=== PATIENT | male | born 1975 | race Caucasian/White ===

== ENCOUNTER → 2020-01-18 08:56 | Outpatient (BNVA) | payer MEDICAID, SELFPAY | PROVIDERS: PCP Internal Medicine; Referring Provider Internal Medicine; Visit Provider Nurse Practitioner Family | DX: Z76.89 Persons encountering health services in other specified circumstances (principal) ==

== ENCOUNTER → 2020-02-04 13:57 | Outpatient (BNVA) | payer MEDICAID, SELFPAY | PROVIDERS: PCP Internal Medicine; Visit Provider Physician Assistant | DX: Z01.818 Encounter for other preprocedural examination (principal); M17.11 Unilateral primary osteoarthritis, right knee; Z88.2 Allergy status to sulfonamides | CPT/HCPCS: 99212 ==

== ENCOUNTER 2020-02-04 14:26 | Outpatient (REF) | payer MEDICAID, SELFPAY ==
--- NOTE | 2020-02-04 14:38 | ECG_ITS ---
Test Reason : PRE CARDIO EXAM PRE Blood Pressure : / mmHG Vent. Rate : 105 BPM Atrial Rate : 105 BPM P-R Int : 150 ms QRS Dur : 088 ms QT Int : 334 ms P-R-T Axes : 043 025 021 degrees QTc Int : 441 ms Sinus tachycardia Otherwise normal ECG When compared with ECG of 02-SEP-2019 16:18, No significant change was found Referred By: Khushboo Hinkle Electronically Signed By:ROLAN GU MD
[2020-02-04 15:39] LABS: MANUAL DIFF FLAG NO
[2020-02-04 15:42] LABS: Basophils Percent Auto 0.6 % (0-2); Eosinophils Absolute Auto 0.4 X10*3/uL (0.0-0.4); Eosinophils Percent Auto 5.9 % (0-4); Hematocrit 41.4 % (42-52); Hemoglobin 14.3 g/dl (14.0-18.0); Imm Gran Abs Auto 0.02 X10*3/uL (0.00-0.03); Imm Gran Pct Auto 0.3 % (0.0-0.4); Lymphocytes Absolute Auto 1.3 X10*3/uL (1.2-4.9); Lymphocytes Percent Auto 20.4 % (20-40); Mean Corpuscular HGB Conc 34.5 g/dl (31.0-36.0); Mean Corpuscular Hemoglobin 32.6 pg (27.0-33.0); Mean Corpuscular Volume 94.3 fL (80-98); Mean Platelet Volume 10.5 fL (9.4-12.4); Monocytes Absolute Auto 0.6 X10*3/uL (0.1-1.2); Monocytes Percent Auto 9.9 % (2-11); Neutrophils Absolute Auto 4.1 X10*3/uL (2.0-8.3); Neutrophils Percent Auto 62.9 % (45-73); Platelet Count 196 X10*3/uL (160-400); Red Blood Count 4.39 X10*6/uL (4.60-5.80); Red Cell Distribution Width 12.6 % (11.0-16.0); White Blood Count 6.5 X10*3/uL (4.8-10.8)
[2020-02-04 15:50] LABS: Estimated Average Glucose 103 mg/dL; Hemoglobin A1c % 5.2 %
[2020-02-04 16:07] LABS: Anion Gap 14 (12-20); Blood Urea Nitrogen 18 mg/dL (9-16); Calcium 9.2 mg/dL (8.4-10.2); Carbon Dioxide 25 mmol/L (22-29); Chloride 104 mmol/L (96-108); Estimated Glomerular Filt Rate > 60; Glucose Random 96 mg/dL (60-115); Potassium 4.2 mmol/l (3.3-5.1); Sodium 139 mmol/L (135-145)
== END 2020-02-04 14:27 | disposition home or self-care (01) ==
LOC: HO.LAB 14:26
PROVIDERS: Visit Provider Physician Assistant
DX: Z01.812 Encounter for preprocedural laboratory examination (principal); Z01.810 Encounter for preprocedural cardiovascular examination
CPT/HCPCS: 36415; 80048; 83036; 85025; 86850; 93005

== ENCOUNTER 2020-02-14 08:24 | Outpatient (REF) | payer MEDICAID, SELFPAY ==
[2020-02-14 12:12] LABS: Phenytoin Dilantin 7.5 ug/mL (10.0-20.0)
== END 2020-02-14 08:25 | disposition home or self-care (01) ==
LOC: HO.LAB 08:24
PROVIDERS: PCP Internal Medicine; Visit Provider Physician Assistant
DX: Z01.818 Encounter for other preprocedural examination (principal)
CPT/HCPCS: 80185

== ENCOUNTER 2020-02-15 | Outpatient (REF) | payer MEDICAID, SELFPAY ==
[2020-02-07 12:19] VITALS: BP 136/84; PULSE 120; RESP 16; O2SAT 98; BMI 39.2
--- NOTE | 2020-02-07 12:39 | P.CONAN_ITS ---
HPI - Anesthesia Eval Consult details Narrative: 44yo M for R TKA Pending: PCP clearance anticonvulsant labs Pt no-showed for medical clearance appointment and dilantin level remains low. ? resched by ortho. [facility] Past Medical History Medical History (Updated 02/09/20 @ 10:15 by Khushboo Hinkle PA-C) History of epilepsy HTN (hypertension) Lumbar radiculopathy Rheumatoid arthritis Sleep apnea Tachycardia Family History Family history of problems with anesthesia: No Surgical History Surgical History (Updated 02/08/20 @ 08:57 by Avelina Enamorado) History of spinal surgery Hx of bariatric surgery Hx of exploratory laparotomy History of Problems with Anesthesia: No Social History Social History (Updated 02/07/20 @ 12:18 by Avelina Enamorado) Alcohol intake: never Smoking Status: Never smoker Current occupational status: disabled Narrative Narrative: No recent illness Chronic WOO, worsened with wearing mask. Some improvement with weight loss. No CP. >4 mets with eliptical, but recently limited to knee pain. Meds Allergies Allergy/AdvReac Type Severity Reaction Status Date / Time Sulfa (Sulfonamide Allergy Severe DIFFICULTY Verified 02/04/20 10:17 Antibiotics) BREATHING, [SULFA (SULFONAMIDE RASH, ANTIBIOTICS)] rash, hypertension Home Medications Medication Instructions Recorded Confirmed Type Humira(CF) Pen 40 mg SUBCUT Q2W 02/07/20 02/07/20 History cyclobenzaprine [Flexeril] 10 mg PO TID PRN 02/07/20 02/07/20 History naproxen 500 mg PO BID 02/07/20 02/07/20 History phenobarbital 194.4 mg PO BEDTIME 02/07/20 02/07/20 History phenytoin sodium extended 200 mg PO TID 02/07/20 02/07/20 History [Dilantin Extended] Exam Exam Date and Time: February 07, 2020 1239 Height,Weight and Vital Signs: Height 5 ft 10 in Weight 123.831 kg Last Vital Signs Pulse 120 H 02/07/20 12:19 Resp 16 02/07/20 12:19 BP 136/84 02/07/20 12:19 Pulse Ox 98 02/07/20 12:19 Pertinent Lab Results Pertinent Lab Results: Laboratory Tests 02/04/20 14:52 Blood Type B Positive Antibody Screen NEGATIVE Laboratory Tests 02/04/20 02/04/20 14:00 14:00 WBC 6.5 Hgb 14.3 Hct 41.4 L Plt Count 196 Sodium 139 Potassium 4.2 Chloride 104 Carbon Dioxide 25 BUN 18 H Creatinine 1.09 Narrative Narrative: EKG 01/17/20: ST @ 105 ECHO 2018: EF 55-60%, No RWMA, No Valve pathology Airway Mallampati Class: IV TM Dist: <=3cm (short neck) Neck ROM: Full Heart: RR-tachy Lungs: CTAB Assessment and Plan Assessment Anesthesia Assessment: Anesthesia Plan Discussed and PAT Visit
[2020-02-07 16:27] LABS: Phenytoin Dilantin 7.4 ug/mL (10.0-20.0)
[2020-02-09 14:55] LABS: MRSA Nasal PCR NEGATIVE (Negative); SA Nasal PCR POSITIVE (Negative)
== END 2020-02-15 00:01 ==
LOC: HO.LAB
PROVIDERS: Nurse Practitioner; Physician Assistant; PCP Internal Medicine; Visit Provider Orthopaedic Surgery
DX: Z01.818 Encounter for other preprocedural examination (principal); M17.11 Unilateral primary osteoarthritis, right knee
CPT/HCPCS: 80184; 80185; 86850; 86900; 86901; 87640; 87641

== ENCOUNTER 2020-06-05 07:29 | Outpatient (REF) | payer MEDICAID, SELFPAY ==
--- NOTE | ~2020-06-05 | XR_ITS ---
EXAMINATION: XR KNEES: STANDING BILATERAL XR KNEE, RIGHT: 2 VIEWS CLINICAL INFORMATION: Pain COMPARISON: 03/26/2019 TECHNIQUE: Weightbearing AP view of both knees and AP and lateral sunrise views of the right knee FINDINGS: No acute fracture or traumatic malalignment. There are tricompartment marginal osteophytes present bilaterally, bulky on the right and moderate on the left. There is significant loss of the lateral tibiofemoral compartment joint space bilaterally, also worse on the right. Moderate joint effusion. Soft tissues otherwise unremarkable. XR/XR knee standing BI IMPRESSION: Tricompartmental degenerative changes bilaterally, worse on the right, and in particular the lateral tibiofemoral compartment. No significant change from prior. Moderate joint effusion.
--- NOTE | ~2020-06-05 | XR_ITS ---
EXAMINATION: XR KNEES: STANDING BILATERAL XR KNEE, RIGHT: 2 VIEWS CLINICAL INFORMATION: Pain COMPARISON: 03/26/2019 TECHNIQUE: Weightbearing AP view of both knees and AP and lateral sunrise views of the right knee FINDINGS: No acute fracture or traumatic malalignment. There are tricompartment marginal osteophytes present bilaterally, bulky on the right and moderate on the left. There is significant loss of the lateral tibiofemoral compartment joint space bilaterally, also worse on the right. Moderate joint effusion. Soft tissues otherwise unremarkable. XR/XR knee RT 2V IMPRESSION: Tricompartmental degenerative changes bilaterally, worse on the right, and in particular the lateral tibiofemoral compartment. No significant change from prior. Moderate joint effusion.
== END 2020-06-05 07:30 | disposition home or self-care (01) ==
LOC: HO.HOSX 07:29
PROVIDERS: Visit Provider Orthopaedic Surgery
DX: M17.11 Unilateral primary osteoarthritis, right knee (principal); M06.9 Rheumatoid arthritis, unspecified
CPT/HCPCS: 73560; 73565; 99212

== ENCOUNTER 2020-06-22 10:06 | Outpatient (REF) | payer MEDICAID, SELFPAY ==
[2020-06-22 14:34] LABS: Estimated Average Glucose 97 mg/dL
== END 2020-06-22 10:07 | disposition home or self-care (01) ==
LOC: HO.10HDL 10:06
PROVIDERS: Visit Provider Orthopaedic Surgery
DX: Z01.812 Encounter for preprocedural laboratory examination (principal)
CPT/HCPCS: 36415; 83036

== ENCOUNTER 2020-07-20 11:54 | Outpatient (REF) | payer MEDICAID, SELFPAY ==
--- NOTE | 2020-07-20 12:32 | ECG_ITS ---
Test Reason : PREPROC EXAM Blood Pressure : / mmHG Vent. Rate : 115 BPM Atrial Rate : 115 BPM P-R Int : 148 ms QRS Dur : 086 ms QT Int : 318 ms P-R-T Axes : 042 024 032 degrees QTc Int : 439 ms Sinus tachycardia Otherwise normal ECG When compared with ECG of 04-FEB-2020 14:42, No significant change was found Referred By: Ruddy Castelan Electronically Signed By:LOLLY HARRIS
[2020-07-20 13:20] LABS: MANUAL DIFF FLAG NO
[2020-07-20 13:37] LABS: Basophils Percent Auto 0.4 % (0-2); Eosinophils Absolute Auto 0.2 X10*3/uL (0.0-0.4); Eosinophils Percent Auto 2.8 % (0-4); Hematocrit 42.9 % (42-52); Hemoglobin 14.6 g/dl (14.0-18.0); Imm Gran Abs Auto 0.02 X10*3/uL (0.00-0.03); Imm Gran Pct Auto 0.3 % (0.0-0.4); Lymphocytes Absolute Auto 1.6 X10*3/uL (1.2-4.9); Lymphocytes Percent Auto 20.2 % (20-40); Mean Corpuscular Hemoglobin 32.6 pg (27.0-33.0); Mean Corpuscular Volume 95.8 fL (80-98); Mean Platelet Volume 10.1 fL (9.4-12.4); Monocytes Absolute Auto 0.7 X10*3/uL (0.1-1.2); Monocytes Percent Auto 9.1 % (2-11); Neutrophils Absolute Auto 5.2 X10*3/uL (2.0-8.3); Neutrophils Percent Auto 67.2 % (45-73); Platelet Count 219 X10*3/uL (160-400); Red Blood Count 4.48 X10*6/uL (4.60-5.80); Red Cell Distribution Width 12.4 % (11.0-16.0); White Blood Count 7.7 X10*3/uL (4.8-10.8)
[2020-07-20 13:57] LABS: Anion Gap 14 (12-20); Blood Urea Nitrogen 17 mg/dL (9-16); Carbon Dioxide 26 mmol/L (22-29); Chloride 103 mmol/L (96-108); Estimated Glomerular Filt Rate > 60; Glucose Random 87 mg/dL (60-115); Potassium 3.9 mmol/L (3.3-5.1); Sodium 139 mmol/L (135-145)
== END 2020-07-20 11:55 | disposition home or self-care (01) ==
LOC: HO.LAB 11:54
PROVIDERS: PCP Internal Medicine; Visit Provider Orthopaedic Surgery
DX: Z01.818 Encounter for other preprocedural examination (principal); M17.11 Unilateral primary osteoarthritis, right knee
CPT/HCPCS: 36415; 80048; 85025; 93005

== ENCOUNTER 2020-07-26 19:58 | Emergency (ER) | payer MEDICAID, SELFPAY ==
--- NOTE | ~2020-07-26 | XR_ITS ---
EXAMINATION: XR CERVICAL SPINE CLINICAL INFORMATION: Status post fall COMPARISON: MR thoracic spine 12/20/2018 TECHNIQUE: 4 views of the cervical spine were obtained. FINDINGS: Marked degenerative changes are present from C4 through C6. C7 is not visualized. Large anterior osteophytes at C4-C5 and C5-C6 are present. No prevertebral soft tissue swelling, fractures or subluxations are seen. XR/XR cervical spine 3V IMPRESSION: Marked degenerative changes as described above. C7 not visualized.
[2020-07-26 20:13] VITALS: BP 138/82; BP 173/98; PULSE 110; PULSE 112; RESP 22; TEMP 36.6; O2SAT 95; O2SAT 96; BMI 37.3
[2020-07-26 21:34] VITALS: RESP 17
[2020-07-26] MEDS: dexAMETHasone 2 MG TABLET 10 MG PO (21:34)
[2020-07-26] MEDS: Morphine Sulfate 10 MG/ML CARTRIDGE 4 MG IM (21:34)
[2020-07-26 21:38] VITALS: BP 128/84; PULSE 110; RESP 18; O2SAT 95
[2020-07-26 21:57] LABS: Glucose Urine UA NEG (NEG); Leukocyte Esterase Urine NEG (NEG); Nitrite Urine NEG (NEG); Specific Gravity - Urine <= 1.005 (1.005-1.025); Urine Blood NEG (NEG); Urine Ketones NEG (NEG); Urine Protein NEG (NEG-TRACE)
[2020-07-26 21:59] LABS: Appearance Urine CLEAR; Color Urine STRAW
--- NOTE | 2020-07-26 22:51 | ED_ITS ---
HPI - Back Pain/Injury General Chief Complaint: Back Pain/Injury Stated Complaint: FALL,ETOH Time Seen by Provider: 07/26/20 21:23 Source: patient Mode of arrival: EMS Limitations: language barrier History of Present Illness HPI Narrative: Patient history of chronic back pain had few beers at home upset with his was going uphill fell on the R side complaining of increased pain in right lower back and shoulder and upper back. No paresthesia no motor weakness No urinary incontinence MD elicited complaint: back injury and fall Related Data Home Medications Medication Instructions Recorded Confirmed cyclobenzaprine [Flexeril] 10 mg PO TID PRN 02/07/20 07/20/20 phenobarbital 194.4 mg PO BEDTIME 02/07/20 07/20/20 phenytoin sodium extended 200 mg PO TID 02/07/20 07/20/20 [Dilantin Extended] Previous Rx's Medication Instructions Recorded naproxen 500 mg tablet 500 mg PO BID #60 tab 03/15/20 adalimumab 40 mg/0.4 mL 40 mg SUBCUT Q2W #2 cap 06/27/20 subcutaneous pen kit Allergies Allergy/AdvReac Type Severity Reaction Status Date / Time Sulfa (Sulfonamide Allergy Severe DIFFICULTY Verified 06/05/20 11:32 Antibiotics) BREATHING, [SULFA (SULFONAMIDE RASH, ANTIBIOTICS)] rash, hypertension Review of Systems Review of Systems: Constitutional : No Weight loss, No Fever, No Chills ENT/Mouth : No sore throat, No Rhinorrhea Eyes: No Eye Pain, No Swelling Cardiovascular : No Chest Pain, no palpitations Respiratory : No Cough, No Sputum, no shortness of breath Gastrointestinal : no Nausea, No Vomiting, No Diarrhea, No abdominal Pain, no black stools Genitourinary : No Dysuria, No Urinary Frequency Musculoskeletal : No joint pain, No Myalgias, No Joint Swelling Skin : No Skin Lesions, No rash Neuro : No Weakness, No Numbness, No Dizziness, No Headache Psych : No Anxiety/Panic, + Depression Heme/Lymph: No Bruising, No Lymphadenopathy Endocrine : No Polyuria, No Polydipsia All other systems reviewed and are negative [facility] Past Medical History Medical History History of epilepsy HTN (hypertension) Lumbar radiculopathy Rheumatoid arthritis Sleep apnea Tachycardia Surgical History History of spinal surgery Hx of bariatric surgery Hx of exploratory laparotomy Social History Social History Do you presently have visiting nurse or other home services: No Alcohol intake: never Smoking Status: Never smoker Advance Directives: No Advance Directives Information Provided: No Current occupational status: disabled Physical Exam Vital Signs: Vital Signs: Last Vital Signs Temp 97.8 F 07/26/20 20:13 Pulse 110 H 07/26/20 21:38 Resp 18 07/26/20 21:38 BP 128/84 07/26/20 21:38 Pulse Ox 95 07/26/20 21:38 Body Mass Index 37.3 Const: General: well developed and in distress moderate Orientation/consciousness: patient oriented x3 HENMT: Head: Yes normal to inspection, Yes normocephalic and Yes atraumatic Ears: hearing grossly normal bilaterally General nose exam: Normal external nose present Eyes: General: appearance normal, both eyes and all related structures Neck: Neck: Yes normal visual inspection, Yes full ROM and Yes tender (Right sternocleidomastoid no midline tenderness) Chest: Chest palpation & inspection: normal inspection of the chest and normal palpation of entire chest wall Resp: Effort & Inspection: normal respiratory effort Auscultation: clear to auscultation bilaterally Cardio: Palpation: normal PMI Rate: regular rate Rhythm: regular rhythm Heart sounds: S1 normal heart sound present and S2 normal heart sound present Peripheral pulses: Peripheral pulses 2+ throughout GI: Inspection: Yes normal to inspection Palpation (GI): Soft to palpation Auscultation: normal bowel sounds : General: Yes no CVA tenderness Back/Spine/Pelvis: Back: no CVA tenderness Thoracic/Lumbar Spine: straight leg raise negative bilaterally, thoraco-lumbar spasm, No thoracic spinal tenderness and No lumbar spinal tenderness Skin: General skin exam: no rashes or lesions noted Neuro: General: patient oriented x3 and no focal motor deficits Extrem: General: Yes normal to inspection and Yes full ROM Psych: Affect: Sad affect present Thought process: Normal thought process present Thought content: Normal thought content present MDM - Back Pain/Injury Lab Data Labs: Lab Results 07/26/20 Range/Units 21:51 Urine Color STRAW Urine Appearance CLEAR Urine pH 6.0 (5.0-8.0) Ur Specific [place] <= 1.005 (1.005-1.025) Urine Protein NEG (NEG-TRACE) MG/DL Urine Glucose (UA) NEG (NEG) MG/DL Urine Ketones NEG (NEG) MG/DL Urine Blood NEG (NEG) Urine Nitrite NEG (NEG) Ur Leukocyte Esterase NEG (NEG) Discharge Plan Discharge Prescriptions: No Action naproxen 500 mg tablet 500 mg PO BID Qty: 60 RF: 2 adalimumab [Humira(CF) Pen] 40 mg/0.4 mL pen injector kit 40 mg subcut Q2W Qty: 2 RF: 5 phenobarbital 97.2 mg Tablet 194.4 mg PO BEDTIME RF: 0 phenytoin sodium extended [Dilantin Extended] 100 mg Capsule 200 mg PO TID RF: 0 cyclobenzaprine [Flexeril] 10 mg Tablet 10 mg PO TID PRN (Reason: Pain) RF: 0
[2020-07-26] MEDS: oxyCODONE HCl Immed Release 5 MG TABLET 10 MG PO (23:01)
[2020-07-26] MEDS: Cyclobenzaprine HCl 10 MG TABLET PO (23:01)
[2020-07-26] MEDS: Ketorolac Tromethamine 60 MG/2 ML VIAL IM (23:01)
== END 2020-07-27 00:03 | disposition home or self-care (01) ==
PROVIDERS: Emergency Provider Internal Medicine
DX: M62.830 Muscle spasm of back (principal); I10 Essential (primary) hypertension
CPT/HCPCS: 72040; 81003; 96372; 99284; J1885; J2270; J8540

== ENCOUNTER → 2020-09-19 15:11 | Outpatient (BNVA) | payer MEDICAID, SELFPAY | PROVIDERS: Visit Provider Student in an Organized Health Care Education/Training Program | DX: M05.9 Rheumatoid arthritis with rheumatoid factor, unspecified (principal) | CPT/HCPCS: 99212 ==

== ENCOUNTER 2020-09-23 12:18 | Emergency (ER) | payer MEDICAID, SELFPAY ==
--- NOTE | ~2020-09-23 | XR_ITS ---
EXAMINATION: XR CHEST CLINICAL INFORMATION: Chest tightness. Pain. COMPARISON: 09/02/2019 TECHNIQUE: Frontal view of the chest was obtained. FINDINGS: Lungs are adequately expanded and clear. No pulmonary edema, consolidation or pleural effusion. No pneumothorax. Cardiac silhouette is normal in size. Trachea is midline in position. Multilevel osteophyte formation of the degenerated spine. XR/XR chest 1V IMPRESSION: No acute pulmonary disease.
[2020-09-23 12:19] VITALS: BP 120/96; PULSE 118; RESP 16; TEMP 36.6; O2SAT 99; BMI 38.9
--- NOTE | 2020-09-23 13:24 | ECG_ITS ---
Test Reason : CP Blood Pressure : / mmHG Vent. Rate : 098 BPM Atrial Rate : 098 BPM P-R Int : 156 ms QRS Dur : 090 ms QT Int : 348 ms P-R-T Axes : 026 026 037 degrees QTc Int : 444 ms Sinus rhythm with occasional Premature ventricular complexes Abnormal ECG When compared with ECG of 20-JUL-2020 12:39, Premature ventricular complexes are now Present Referred By: Yessica Lawrence Electronically Signed By:LOLLY HARRIS
--- NOTE | 2020-09-23 13:25 | ED.ARRPALP ---
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 Mode of arrival: ambulatory Limitations: no limitations History of Present Illness HPI narrative: chest pain and dyspnea started on prednisone taper for RA this week MD complaint: rapid heart beat, heart racing and palpitations Severity: moderate Context: occurred during rest and occurred during exertion Associated symptoms: chest pain, shortness of breath and anxiety Related Data Home Medications Medication Instructions Recorded Confirmed cyclobenzaprine [Flexeril] 10 mg PO TID PRN 02/07/20 07/20/20 phenobarbital 194.4 mg PO BEDTIME 02/07/20 07/20/20 phenytoin sodium extended 200 mg PO TID 02/07/20 07/20/20 [Dilantin Extended] Previous Rx's Medication Instructions Recorded naproxen 500 mg tablet 500 mg PO BID #60 tab 03/15/20 adalimumab 40 mg/0.4 mL 40 mg SUBCUT Q2W #2 cap 06/27/20 subcutaneous pen kit cyclobenzaprine 10 mg PO Q8H #20 tab 07/26/20 oxycodone 5 mg PO Q6H PRN #20 tab 07/26/20 gabapentin 100 mg capsule 200 mg PO BID #120 cap 09/15/20 prednisone 5 mg tablet See Rx Instructions PO DAILY #12 09/19/20 tab hydrocodone-acetaminophen 1 tab PO Q6H PRN #8 tab 09/23/20 Allergies Allergy/AdvReac Type Severity Reaction Status Date / Time Sulfa (Sulfonamide Allergy Severe DIFFICULTY Verified 09/19/20 15:24 Antibiotics) BREATHING, [SULFA (SULFONAMIDE RASH, ANTIBIOTICS)] rash, hypertension Review of Systems Review of Systems: Constitutional : No Weight loss, No Fever, No Chills ENT/Mouth : No sore throat, No Rhinorrhea Eyes: No Eye Pain, No Swelling Cardiovascular : pos Chest Pain, pos SOB, no Dyspnea on Exertion, No Orthopnea, No Edema, pos Palpitations Respiratory : No Cough, No Sputum Gastrointestinal : pos Nausea, No Vomiting, No Diarrhea, No abdominal Pain, No Hematochezia, No Melena Genitourinary : No Dysuria, No Urinary Frequency Musculoskeletal : No joint pain, No Myalgias, No Joint Swelling Skin : No Skin Lesions, No rash Neuro : No Weakness, No Numbness, No Dizziness, No Headache Psych : No Anxiety/Panic, No Depression Heme/Lymph: No Bruising, No Lymphadenopathy Endocrine : No Polyuria, No Polydipsia All other systems reviewed and are negative [facility] Past Medical History Attestation statement: The following information was validated with the patient. Medical History History of epilepsy HTN (hypertension) Lumbar radiculopathy Rheumatoid arthritis Rheumatoid arthritis Sleep apnea Tachycardia Surgical History History of spinal surgery Hx of bariatric surgery Hx of exploratory laparotomy Social History Social History Are you a primary healthcare interpreter to a significant other at home: Yes ( disabled) Do you presently have visiting nurse or other home services: No Alcohol intake: never Patient Tobacco Use Status: Never used Tobacco e-Cigarette/Vaping Use: Never Used Advance Directives: No Advance Directives Information Provided: No Current occupational status: disabled Physical Exam Vital Signs: Vital Signs: Last Vital Signs Temp 98.5 F 09/23/20 14:45 Pulse 98 09/23/20 14:45 Resp 18 09/23/20 14:45 BP 131/94 H 09/23/20 14:45 Pulse Ox 98 09/23/20 14:45 Body Mass Index 38.9 Appearance: Alert. Oriented X3. No acute distress. Anxious Eyes: Pupils equal, round and reactive to light. ENT: Pharynx normal. Neck: Normal inspection. Neck supple. CVS: Normal heart rate and rhythm 99 on the monitor. Pulses normal. Respiratory: No respiratory distress. Breath sounds normal. Abdomen: Soft and non-tender. Skin: Skin warm and dry. Normal skin color. Normal skin turgor. Extremities: No lower extremity edema. No calf ttp Neuro: Oriented X 3. No motor deficit. No sensory deficit. 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 only two narcotic Rx in last 6 months MDM - Arrhythmia/Palpitations MDM Narrative Medical decision making narrative: 44 yo male with arthritis, RA on prednisone just started taper this week comes in with palpitations/dyspnea/pleuritic chest pain since yesterday at this time appears very anxious will obtain labs, troponin x 1 as pain constant, has had workup for CP with cardiology that was negative in the past, IV ativan for anxiety, ddimer for PE dispo per results and improvement Lab Data Result diagrams: 09/23/20 13:45 09/23/20 13:45 Labs: Lab Results 09/23/20 09/23/20 09/23/20 Range/Units 13:45 13:45 13:45 WBC 4.8 (4.8-10.8) X10*3/uL RBC 4.36 L (4.60-5.80) X10*6/uL Hgb 14.4 (14.0-18.0) g/dl Hct 40.9 L (42-52) % MCV 93.8 (80-98) fL MCH 33.0 (27.0-33.0) pg MCHC 35.2 (31.0-36.0) g/dl RDW 12.4 (11.0-16.0) % Plt Count 161 D (160-400) X10*3/uL MPV 9.9 (9.4-12.4) fL Immature Gran % (Auto) 0.2 (0.0-0.4) % Neut % (Auto) 63.6 (45-73) % Lymph % (Auto) 22.8 (20-40) % [place] % (Auto) 8.8 (2-11) % Eos % (Auto) 4.4 H (0-4) % Baso % (Auto) 0.2 (0-2) % Lymph # (Auto) 1.1 L (1.2-4.9) X10*3/uL [place] # (Auto) 0.4 (0.1-1.2) X10*3/uL Eos # (Auto) 0.2 (0.0-0.4) X10*3/uL Baso # (Auto) 0.0 (0.0-0.2) X10*3/uL Abs Immat Gran (auto) 0.01 (0.00-0.03) X10*3/uL Absolute Neuts (auto) 3.1 (2.0-8.3) X10*3/uL Absolute Nucleated RBC 0.000 (0.0-0.012) X10*3/uL Nucleated RBC % (auto) 0.0 (0.0-0.2) /100WBC D-Dimer NG/ML Sodium 139 (135-145) mmol/L Potassium 4.4 (3.3-5.1) mmol/L Chloride 103 (96-108) mmol/L Carbon Dioxide 26 (22-29) mmol/L Anion Gap 14 (12-20) BUN 13 (9-16) mg/dL Creatinine 1.06 (0.5-1.4) mg/dL Estim Creat Clear Calc 116.9 Estimated GFR > 60 Random Glucose 105 (60-115) mg/dL Calcium 9.8 (8.4-10.2) mg/dL Total Bilirubin 0.4 (0.0-1.0) mg/dL AST 25 (5-37) U/L ALT 41 H (0-40) U/L Alkaline Phosphatase 98 (39-117) U/L Troponin I High Sens < 3.5 (<3.5-35.0) ng/L Total Protein 7.4 (6.5-8.0) g/dL Albumin 4.2 (3.5-5.0) g/dL 09/23/20 Range/Units 13:45 WBC (4.8-10.8) X10*3/uL RBC (4.60-5.80) X10*6/uL Hgb (14.0-18.0) g/dl Hct (42-52) % MCV (80-98) fL MCH (27.0-33.0) pg MCHC (31.0-36.0) g/dl RDW (11.0-16.0) % Plt Count (160-400) X10*3/uL MPV (9.4-12.4) fL Immature Gran % (Auto) (0.0-0.4) % Neut % (Auto) (45-73) % Lymph % (Auto) (20-40) % [place] % (Auto) (2-11) % Eos % (Auto) (0-4) % Baso % (Auto) (0-2) % Lymph # (Auto) (1.2-4.9) X10*3/uL [place] # (Auto) (0.1-1.2) X10*3/uL Eos # (Auto) (0.0-0.4) X10*3/uL Baso # (Auto) (0.0-0.2) X10*3/uL Abs Immat Gran (auto) (0.00-0.03) X10*3/uL Absolute Neuts (auto) (2.0-8.3) X10*3/uL Absolute Nucleated RBC (0.0-0.012) X10*3/uL Nucleated RBC % (auto) (0.0-0.2) /100WBC D-Dimer < 200 NG/ML Sodium (135-145) mmol/L Potassium (3.3-5.1) mmol/L Chloride (96-108) mmol/L Carbon Dioxide (22-29) mmol/L Anion Gap (12-20) BUN (9-16) mg/dL Creatinine (0.5-1.4) mg/dL Estim Creat Clear Calc Estimated GFR Random Glucose (60-115) mg/dL Calcium (8.4-10.2) mg/dL Total Bilirubin (0.0-1.0) mg/dL AST (5-37) U/L ALT (0-40) U/L Alkaline Phosphatase (39-117) U/L Troponin I High Sens (<3.5-35.0) ng/L Total Protein (6.5-8.0) g/dL Albumin (3.5-5.0) g/dL ECG Data Attestation: I personally reviewed and interpreted this ECG as follows: ECG interpretation date: 09/23/20 ECG interpretation time: 13:36 Interpretation: Rate: 98 Rhythm: NSR with PACs [place]: normal Normal P waves. Normal AMY. Normal QRS complex. ST T wave : normal no GORDON qTC: normal prior studies: no acute ischemia The study has been interpreted contemporaneously by me. . Discharge Plan Discharge Clinical Impression: Palpitations, Anxiety Patient Disposition: Home, Self-Care Instructions: Heart Palpitations (ED), Anxiety (ED) Additional Instructions: return to ED for any worsening symptoms or concerns seguimiento con palencia reumat?logo el es Prescriptions: New hydrocodone-acetaminophen 5-325 mg tablet 1 tab PO Q6H PRN (Reason: pain) Qty: 8 RF: 0 No Action naproxen 500 mg tablet 500 mg PO BID Qty: 60 RF: 2 adalimumab [Humira(CF) Pen] 40 mg/0.4 mL pen injector kit 40 mg subcut Q2W Qty: 2 RF: 5 gabapentin 100 mg capsule 200 mg PO BID Qty: 120 RF: 1 phenobarbital 97.2 mg Tablet 194.4 mg PO BEDTIME RF: 0 phenytoin sodium extended [Dilantin Extended] 100 mg Capsule 200 mg PO TID RF: 0 cyclobenzaprine [Flexeril] 10 mg Tablet 10 mg PO TID PRN (Reason: Pain) RF: 0 cyclobenzaprine 10 mg tablet 10 mg PO Q8H Qty: 20 RF: 0 oxycodone 5 mg tablet 5 mg PO Q6H PRN (Reason: Moderate Pain (Scale Score 5-6)) Qty: 20 RF: 0 prednisone 5 mg tablet See Rx Instructions PO DAILY Qty: 12 RF: 0 Print Language: Liberian
[2020-09-23] MEDS: LORazepam 2 MG/ML VIAL 1 MG IVPUSH (13:49)
[2020-09-23 13:50] LABS: MANUAL DIFF FLAG NO
[2020-09-23 13:53] LABS: Basophils Percent Auto 0.2 % (0-2); Eosinophils Absolute Auto 0.2 X10*3/uL (0.0-0.4); Eosinophils Percent Auto 4.4 % (0-4); Hematocrit 40.9 % (42-52); Hemoglobin 14.4 g/dl (14.0-18.0); Imm Gran Abs Auto 0.01 X10*3/uL (0.00-0.03); Imm Gran Pct Auto 0.2 % (0.0-0.4); Lymphocytes Absolute Auto 1.1 X10*3/uL (1.2-4.9); Lymphocytes Percent Auto 22.8 % (20-40); Mean Corpuscular HGB Conc 35.2 g/dl (31.0-36.0); Mean Corpuscular Volume 93.8 fL (80-98); Mean Platelet Volume 9.9 fL (9.4-12.4); Monocytes Absolute Auto 0.4 X10*3/uL (0.1-1.2); Monocytes Percent Auto 8.8 % (2-11); Neutrophils Absolute Auto 3.1 X10*3/uL (2.0-8.3); Neutrophils Percent Auto 63.6 % (45-73); Platelet Count 161 X10*3/uL (160-400); Red Blood Count 4.36 X10*6/uL (4.60-5.80); Red Cell Distribution Width 12.4 % (11.0-16.0); White Blood Count 4.8 X10*3/uL (4.8-10.8)
[2020-09-23 14:15] LABS: Troponin-I High Sensitivity < 3.5 ng/L (<3.5-35.0)
[2020-09-23 14:27] LABS: D Dimer < 200 NG/ML
[2020-09-23 14:28] LABS: Alanine Aminotransferase 41 U/L (0-40); Albumin Level 4.2 g/dL (3.5-5.0); Alkaline Phosphatase 98 U/L (39-117); Anion Gap 14 (12-20); Aspartate Amino Transferase 25 U/L (5-37); Bilirubin Total 0.4 mg/dL (0.0-1.0); Blood Urea Nitrogen 13 mg/dL (9-16); Calcium 9.8 mg/dL (8.4-10.2); Carbon Dioxide 26 mmol/L (22-29); Chloride 103 mmol/L (96-108); Creatinine Clr Calc Pharmacy 116.9; Estimated Glomerular Filt Rate > 60; Glucose Random 105 mg/dL (60-115); Potassium 4.4 mmol/L (3.3-5.1); Sodium 139 mmol/L (135-145); Total Protein 7.4 g/dL (6.5-8.0)
[2020-09-23 14:45] VITALS: BP 131/94; PULSE 98; RESP 18; TEMP 36.9; O2SAT 98
== END 2020-09-23 15:26 | disposition home or self-care (01) ==
PROVIDERS: Emergency Provider Emergency Medicine; PCP Internal Medicine
DX: R00.2 Palpitations (principal); F41.9 Anxiety disorder, unspecified; M06.9 Rheumatoid arthritis, unspecified; I10 Essential (primary) hypertension; Z79.52 Long term (current) use of systemic steroids; Z79.899 Other long term (current) drug therapy
CPT/HCPCS: 36415; 71045; 80053; 84443; 84484; 85025; 85379; 93005; 96374; 99284; J2060

== ENCOUNTER 2020-10-28 00:44 | Emergency (ER) | payer MEDICAID, SELFPAY ==
[2020-10-28 00:57] VITALS: BP 122/75; PULSE 115; RESP 16; TEMP 36.8; O2SAT 91; BMI 37.3
[2020-10-28 02:58] LABS: COVID-19 Test Negative (Negative)
[2020-10-28 03:25] LABS: Ethanol 225 mg/dL
[2020-10-28 04:05] LABS: Amphetamine Screen Urine Not Detected (Not Detect); Barbiturates, Urine POSITIVE (Not Detect); Benzodiazepines Screen Urine Not Detected (Not Detect); Cannabinoid Screen Urine Not Detected (Not Detect); Cocaine Screen Urine POSITIVE (Not Detect); Fentanyl, urine Not Detected (Not Detect); Opiate Screen Urine Not Detected (Not Detect); Phencyclidine Screen Urine Not Detected (Not Detect)
--- NOTE | 2020-10-28 05:26 | ED.ALCOHOL ---
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 This information was obtained later in this patient's stay as initially patient was brought in by EMS after he was found intoxicated and for the police station. Patient otherwise has no acute complaints and denies suicidal ideation and does not feel he needs to pursue detox at this time as he does not drink regularly. Related Data Home Medications Medication Instructions Recorded Confirmed cyclobenzaprine 10 mg tablet 10 mg PO TID PRN 02/07/20 07/20/20 phenobarbital 97.2 mg tablet 194.4 mg PO BEDTIME 02/07/20 07/20/20 phenytoin sodium extended 100 mg 200 mg PO TID 02/07/20 07/20/20 capsule (Dilantin Extended) Previous Rx's Medication Instructions Recorded naproxen 500 mg tablet 500 mg PO BID #60 tab 03/15/20 adalimumab 40 mg/0.4 mL 40 mg SUBCUT Q2W #2 cap 06/27/20 subcutaneous pen kit (Humira(CF) Pen) cyclobenzaprine 10 mg tablet 10 mg PO Q8H #20 tab 07/26/20 oxycodone 5 mg tablet 5 mg PO Q6H PRN #20 tab 07/26/20 gabapentin 100 mg capsule 200 mg PO BID #120 cap 09/15/20 prednisone 5 mg tablet See Rx Instructions PO DAILY #12 09/19/20 tab hydrocodone 5 mg-acetaminophen 325 1 tab PO Q6H PRN #8 tab 09/23/20 mg tablet Allergies Allergy/AdvReac Type Severity Reaction Status Date / Time Sulfa (Sulfonamide Allergy Severe DIFFICULTY Verified 09/19/20 15:24 Antibiotics) BREATHING, [SULFA (SULFONAMIDE RASH, ANTIBIOTICS)] rash, hypertension Review of Systems Review of Systems: Pertinent positives and negatives as stated in HPI 10 point review of systems otherwise negative. 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 GENERAL: Smells like alcohol, Well developed, well nourished, in no acute distress. HEAD: Normocephalic/atraumatic EYES: PERRLA, EOMI OROPHARYNX: no oral lesions noted, posterior pharynx clear LUNGS: Normal breath sounds. No adventitious sounds or accessory muscle use. SpO2<93> CARDIOVASCULAR: Regular rate and rhythm without noted murmurs ABDOMEN: Soft, non-tender, non-distended with bowel sounds. SKIN: Inspection of the skin reveals no rashes. NEUROLOGIC: Alert and oriented x 4. Strength and sensation to light touch were grossly intact x 4. Course Course Course Narrative: 45-year-old male with history and clinical presentation consistent with polysubstance use and is noted to be positive for cocaine, alcohol as well as barbiturates. The latter of which is likely his epilepsy medication. Patient was re-evaluated later in his stay and noted to have a steady gait and was otherwise clinically sober for discharge to home. He was provided with a list of resources should he decide he wanted to pursue help with his substance use. MDM - Alcohol Lab Data Labs: Lab Results 10/28/20 10/28/20 10/28/20 Range/Units 02:36 02:36 03:39 Urine Opiates Screen Not Detected (Not Detect) Urine Fentanyl Screen Not Detected (Not Detect) Ur Barbiturates Screen POSITIVE H (Not Detect) Ur Phencyclidine Scrn Not Detected (Not Detect) Ur Amphetamines Screen Not Detected (Not Detect) U Benzodiazepines Scrn Not Detected (Not Detect) Urine Cocaine Screen POSITIVE H (Not Detect) U Marijuana (THC) Screen Not Detected (Not Detect) Ethyl Alcohol 225 mg/dL COVID-19 (CLEMENTINE) Negative (Negative) COVID-19 Clin Com See Note Discharge Plan Discharge Clinical Impression: Alcoholic intoxication Patient Disposition: Home, Self-Care Instructions: Alcohol Intoxication (ED) Additional Instructions: 1. Reanude todos los medicamentos caseros seg?n lo prescrito. 2. Jemma un seguimiento con palencia proveedor de atenci?n primaria para nir reevaluaci?n en 2-3 d?as. Regrese a la bebeto de emergencias por un empeoramiento greg de los s?ntomas. Prescriptions: No Action naproxen 500 mg tablet 500 mg PO BID Qty: 60 RF: 2 adalimumab [Humira(CF) Pen] 40 mg/0.4 mL pen injector kit 40 mg subcut Q2W Qty: 2 RF: 5 gabapentin 100 mg capsule 200 mg PO BID Qty: 120 RF: 1 phenobarbital 97.2 mg Tablet 194.4 mg PO BEDTIME RF: 0 phenytoin sodium extended [Dilantin Extended] 100 mg Capsule 200 mg PO TID RF: 0 cyclobenzaprine [Flexeril] 10 mg Tablet 10 mg PO TID PRN (Reason: Pain) RF: 0 cyclobenzaprine 10 mg tablet 10 mg PO Q8H Qty: 20 RF: 0 oxycodone 5 mg tablet 5 mg PO Q6H PRN (Reason: Moderate Pain (Scale Score 5-6)) Qty: 20 RF: 0 hydrocodone-acetaminophen 5-325 mg tablet 1 tab PO Q6H PRN (Reason: pain) Qty: 8 RF: 0 prednisone 5 mg tablet See Rx Instructions PO DAILY Qty: 12 RF: 0 Referrals: Physician,Unknown [Primary Care Provider] - 2 days Print Language: Sami
[2020-10-28 05:58] VITALS: BP 120/76; PULSE 106; RESP 16; TEMP 36.9; O2SAT 94
== END 2020-10-28 06:03 | disposition home or self-care (01) ==
PROVIDERS: Emergency Provider Student in an Organized Health Care Education/Training Program
DX: F10.220 Alcohol dependence with intoxication, uncomplicated (principal); F19.90 Other psychoactive substance use, unspecified, uncomplicated; Z20.822 Contact with and (suspected) exposure to COVID-19; I10 Essential (primary) hypertension; Z79.899 Other long term (current) drug therapy
CPT/HCPCS: 36415; 80307; 82077; 87635; 99284

== ENCOUNTER 2020-12-24 11:41 | Emergency (ER) | payer MEDICAID, SELFPAY ==
[2020-12-24 11:52] VITALS: BP 132/86; PULSE 96; PULSE 98; RESP 20; TEMP 36.4; O2SAT 98; BMI 41.5
--- NOTE | 2020-12-24 13:40 | ED_ITS ---
HPI - General Adult General Chief complaint: General Medical Stated complaint: BODYACHES,HX ARTHRITIS Time Seen by Provider: 12/24/20 12:55 Source: patient Mode of arrival: ambulatory Limitations: no limitations History of Present Illness HPI narrative: Patient presents to ED for generalized body aches and joint pain. Patient has pain in all his joints. Patient states have history of rheumatoid arthritis since having RHeumatoid arthritis exacerbation. Patient baseline takes naproxen and Humira. Patient is vaccinated against COVID-19. Patient denies being exposed to COVID. Patient states no fever, chills, chest pain, shortness of breath, or redness. Related Data Home Medications Medication Instructions Recorded Confirmed cyclobenzaprine 10 mg tablet 10 mg PO TID PRN 02/07/20 07/20/20 phenobarbital 97.2 mg tablet 194.4 mg PO BEDTIME 02/07/20 07/20/20 phenytoin sodium extended 100 mg 200 mg PO TID 02/07/20 07/20/20 capsule (Dilantin Extended) Previous Rx's Medication Instructions Recorded naproxen 500 mg tablet 500 mg PO BID #60 tab 03/15/20 adalimumab 40 mg/0.4 mL 40 mg SUBCUT Q2W #2 cap 06/27/20 subcutaneous pen kit (Humira(CF) Pen) cyclobenzaprine 10 mg tablet 10 mg PO Q8H #20 tab 07/26/20 oxycodone 5 mg tablet 5 mg PO Q6H PRN #20 tab 07/26/20 gabapentin 100 mg capsule 200 mg PO BID #120 cap 09/15/20 prednisone 5 mg tablet See Rx Instructions PO DAILY #12 09/19/20 tab hydrocodone 5 mg-acetaminophen 325 1 tab PO Q6H PRN #8 tab 09/23/20 mg tablet prednisone 20 mg tablet 60 mg PO DAILY 5 Days #15 tab 12/24/20 Allergies Allergy/AdvReac Type Severity Reaction Status Date / Time Sulfa (Sulfonamide Allergy Severe DIFFICULTY Verified 12/24/20 12:20 Antibiotics) BREATHING, [SULFA (SULFONAMIDE RASH, ANTIBIOTICS)] rash, hypertension Review of Systems Review of Systems: Yes all other systems are reviewed and are negative Constitutional: Constitutional: Reports as per HPI, Reports no additional constitutional complaints and Reports body ache(s) Eyes: Eyes: Reports as per HPI and Reports no additional eye complaints ENT: Reports system reviewed and no additional complaints, except as documented and Reports as per HPI Cardiovascular: Cardiovascular: Reports as per HPI and Reports no additional cardiovascular complaints Respiratory: Respiratory: Reports as per HPI and Reports no additional respiratory complaints Gastrointestinal: Gastrointestinal: Reports as per HPI and Reports no additional gastrointestinal complaints Genitourinary: Genitourinary: Reports no additional male genitourinary complaints and Reports as per HPI Musculoskeletal: Musculoskeletal: Reports no additional musculoskeletal complaints, Reports as per HPI and Reports arthralgias (Bilateral elbow and bilateral knees.) Integumentary/Breasts: Skin/Breast: Reports system reviewed and no additional complaints, except as docu and Reports as per HPI Neurologic: Reports system reviewed and no additional complaints, except as documented and Reports as per HPI Psychiatric: Psychiatric: Reports no additional psychiatric complaints and Reports as per HPI [facility] Past Medical History Medical History History of epilepsy HTN (hypertension) Lumbar radiculopathy Rheumatoid arthritis Rheumatoid arthritis Sleep apnea Tachycardia Surgical History History of spinal surgery Hx of bariatric surgery Hx of exploratory laparotomy Social History Social History 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) Do you presently have visiting nurse or other home services: No Alcohol intake: never Patient Tobacco Use Status: Never used Tobacco e-Cigarette/Vaping Use: Never Used Advance Directives: No Advance Directives Information Provided: No Current occupational status: disabled Physical Exam Vital Signs: Vital Signs: Last Vital Signs Temp 97.6 F 12/24/20 11:52 Pulse 96 12/24/20 11:52 Resp 20 12/24/20 11:52 BP 132/86 12/24/20 11:52 Pulse Ox 98 12/24/20 11:52 Body Mass Index 41.5 Const: General: cooperative, healthy appearing, comfortable, no acute distress, well developed, alert, awake and Physically active Orie ntation/consciousness: patient oriented x3 HENMT: Head: Yes normal to inspection, Yes No palpable skull fracture present, Yes normocephalic, Yes atraumatic and No abrasion Eyes: General: appearance normal, both eyes and all related structures Neck: Neck: Yes normal visual inspection, Yes full ROM, Yes no lymphadenopathy, Yes no meningeal signs, Yes trachea midline, Yes supple and No tender Chest: Chest palpation & inspection: normal inspection of the chest and normal palpation of entire chest wall Resp: Effort & Inspection: normal respiratory effort and able to speak in complete sentences Auscultation: clear to auscultation bilaterally Cardio: Jugular venous distension: no JVD Heart sounds: S1 normal heart sound present and S2 normal heart sound present GI: Inspection: Yes normal to inspection and No abdominal wall ecchymosis Palpation (GI): Soft to palpation, not firm, nontender, no guarding and not rigid : General: No CVA tenderness and Yes no CVA tenderness Back/Spine/Pelvis: Back: no CVA tenderness, No CVA tenderness and No back tenderness Skin: General skin exam: no rashes or lesions noted and elasticity normal Neuro: General: patient oriented x3, gait normal, no meningeal signs and CN's II-XI intact bilaterally Cranial nerves: Yes CN's II-XII intact bilaterally Extrem: General: Yes normal to inspection and Yes full ROM Shoulder/upper arm images: 1. Elbow joint painful on palpation. Negative for erythema or warmth. negative for ecchymosis/swelling. Motor, neuro, and vascular exam is intact 2. Elbow joint painful on palpation. Negative for erythema or warmth. Negative for ecchymosis/swelling. Motor, neuro, and vascular exam is intact. Knee images: 1. Positive for tenderness on palpation. Negative for any erythema, swelling, ecchymosis, warmth, deformity, stiffness, or ecchymosis. Motor/neuro/vascular exam intact. Negative for any wounds 2. Positive for tenderness on palpation. Negative for any erythema, swelling, ecchymosis, warmth, deformity, stiffness, or ecchymosis. Motor/neuro/vascular exam intact. Negative for any wounds Psych: Appearance: grossly normal, well kempt and not disheveled Course Course Course Narrative: History physical exam indicate rheumatoid arthritis exacerba tion will do Toradol prednisone print Khalif COVID swab. Reevaluation(s) Reevaluation #1: COVID swab came inconclusive twice and lab call for 3rd specimen. If 3rd specimen inconclusive with his discharge home. Patient is vaccinated Time: 14:50 Reevaluation #2: COVID swab negative. Medical Decision Making MDM Narrative Medical decision making narrative: Myalgias due to rheumatoid arthritis. Lab Data Labs: Lab Results 12/24/20 12/24/20 Range/Units 14:10 14:59 COVID-19 (CLEMENTINE) TNP Negative COVID-19 Clin Com See Note See Note Discharge Plan Discharge Clinical Impression: Myalgia, Rheumatoid arthritis flare Patient Disposition: Home, Self-Care Instructions: Rheumatoid Arthritis (ED), Musculoskeletal Pain (ED) Additional Instructions: Halle s?ntomas se deben a un brote de artritis reumatoide. Ser? dado de milena con esteroides. Puede seguir tomando naproxeno seg?n lo prescrito por palencia reumat?logo / proveedor de atenci?n primaria. Regrese al servicio de urgencias si tiene fiebre, dolor en el pecho, escalofr?os, dificultad para respirar, enrojecimiento de las articulaciones o cualquier s?ntoma preocupante. Prescriptions: New prednisone 20 mg tablet 60 mg PO DAILY 5 Days Qty: 15 RF: 0 No Action naproxen 500 mg tablet 500 mg PO BID Qty: 60 RF: 2 adalimumab [Humira(CF) Pen] 40 mg/0.4 mL pen injector kit 40 mg subcut Q2W Qty: 2 RF: 5 gabapentin 100 mg capsule 200 mg PO BID Qty: 120 RF: 1 phenobarbital 97.2 mg Tablet 194.4 mg PO BEDTIME RF: 0 phenytoin sodium extended [Dilantin Extended] 100 mg Capsule 200 mg PO TID RF: 0 cyclobenzaprine [Flexeril] 10 mg Tablet 10 mg PO TID PRN (Reason: Pain) RF: 0 cyclobenzaprine 10 mg tablet 10 mg PO Q8H Qty: 20 RF: 0 oxycodone 5 mg tablet 5 mg PO Q6H PRN (Reason: Moderate Pain (Scale Score 5-6)) Qty: 20 RF: 0 hydrocodone-acetaminophen 5-325 mg tablet 1 tab PO Q6H PRN (Reason: pain) Qty: 8 RF: 0 prednisone 5 mg tablet See Rx Instructions PO DAILY Qty: 12 RF: 0 Stand Alone Forms: Work/School Release Interventions: ED Discharge Assessment Last Done: 12/24/20 17:19 Discharge Date/Time: 12/24/20 17:20 Print Language: Danish
[2020-12-24] MEDS: Ketorolac Tromethamine 15 MG/ML VIAL 30 MG IM (14:15)
[2020-12-24] MEDS: predniSONE 20 MG TABLET 60 MG PO (14:16)
--- NOTE | 2020-12-24 14:18 | PC.NURSE ---
pt evaluated by pennie fonseca PT AWAKE, ALERT AND ORIENTED X 3. SKIN WARM AND DRY. RESP UNLABORED. C/O 10/10 GENERALIZED BODY PAIN. MEDICATED ORDERED. PT AWARE AND AGREEABLE TO PLAN. NEUROS INTACT. DEMARCO CARMICHAEL.
[2020-12-24 16:00] LABS: COVID-19 Test Negative (Negative); IDNOW Serial# 9DD0AD1C
== END 2020-12-24 17:20 | disposition home or self-care (01) ==
PROVIDERS: Physician Assistant; Emergency Provider Emergency Medicine; PCP Internal Medicine
DX: M79.10 Myalgia, unspecified site (principal); M06.9 Rheumatoid arthritis, unspecified; I10 Essential (primary) hypertension; Z79.899 Other long term (current) drug therapy; Z20.822 Contact with and (suspected) exposure to COVID-19
CPT/HCPCS: 36415; 87635; 96372; 99284; J1885

== ENCOUNTER 2021-01-25 10:03 | Outpatient (REF) | payer MEDICAID, SELFPAY ==
[2021-01-25 10:13] LABS: MANUAL DIFF FLAG NO
[2021-01-25 11:38] LABS: Basophils Percent Auto 0.4 % (0-2); Eosinophils Absolute Auto 0.2 X10*3/uL (0.0-0.4); Eosinophils Percent Auto 3.9 % (0-4); Hematocrit 41.1 % (42.0-52.0); Hemoglobin 14.3 g/dl (14.0-18.0); Imm Gran Abs Auto 0.02 X10*3/uL (0.00-0.03); Imm Gran Pct Auto 0.4 % (0.0-0.4); Lymphocytes Absolute Auto 1.6 X10*3/uL (1.2-4.9); Lymphocytes Percent Auto 28.3 % (20-40); Mean Corpuscular HGB Conc 34.8 g/dl (31.0-36.0); Mean Corpuscular Hemoglobin 32.6 pg (27.0-33.0); Mean Corpuscular Volume 93.6 fL (80.0-98.0); Monocytes Absolute Auto 0.6 X10*3/uL (0.1-1.2); Monocytes Percent Auto 10.7 % (2-11); Neutrophils Absolute Auto 3.2 x10*3/uL (2.0-8.3); Neutrophils Percent Auto 56.3 % (45-73); Platelet Count 205 X10*3/uL (160-400); Red Blood Count 4.39 X10*6/uL (4.60-5.80); Red Cell Distribution Width 12.2 % (11.0-16.0); White Blood Count 5.7 X10*3/uL (4.8-10.8)
[2021-01-25 12:08] LABS: Alanine Aminotransferase 20 U/L (0-40); Albumin Level 4.3 g/dL (3.5-5.0); Alkaline Phosphatase 97 U/L (39-117); Anion Gap 14 (12-20); Aspartate Amino Transferase 14 U/L (5-37); Bilirubin Total 0.4 mg/dL (0.0-1.0); Blood Urea Nitrogen 11 mg/dL (9-16); C Reactive Protein 0.63 mg/dL (< or = 0.50); Carbon Dioxide 28 mmol/L (22-29); Chloride 101 mmol/L (96-108); Estimated Glomerular Filt Rate > 60; Glucose Random 89 mg/dL (60-115); Potassium 4.3 mmol/L (3.3-5.1); Sodium 139 mmol/L (135-145); Total Protein 7.6 g/dL (6.5-8.0)
[2021-01-25 12:27] LABS: Phenytoin Dilantin 17.4 ug/mL (10.0-20.0)
[2021-01-25 12:37] LABS: Erythrocyte Sedimentation Rate 13 MM/HR (0-15)
== END 2021-01-25 10:04 | disposition home or self-care (01) ==
LOC: HO.LAB 10:03
PROVIDERS: Student in an Organized Health Care Education/Training Program; PCP Internal Medicine; Referring Provider Nurse Practitioner Family; Visit Provider Psychiatry & Neurology Neurology
DX: R56.1 Post traumatic seizures (principal); M05.9 Rheumatoid arthritis with rheumatoid factor, unspecified; Z79.899 Other long term (current) drug therapy
CPT/HCPCS: 36415; 80053; 80184; 80185; 85025; 85652; 86140

== ENCOUNTER → 2021-01-29 12:16 | Outpatient (BNVA) | payer MEDICAID, SELFPAY | PROVIDERS: PCP Internal Medicine; Visit Provider Nurse Practitioner Family | DX: M05.9 Rheumatoid arthritis with rheumatoid factor, unspecified (principal) | CPT/HCPCS: 99212 ==

== ENCOUNTER 2021-02-02 11:00 | Outpatient (REF) | payer MEDICAID, SELFPAY ==
[2021-02-02 11:19] LABS: MANUAL DIFF FLAG NO
[2021-02-02 12:06] LABS: Basophils Percent Auto 0.2 % (0-2); Eosinophils Absolute Auto 0.3 X10*3/uL (0.0-0.4); Eosinophils Percent Auto 4.9 % (0-4); Hematocrit 40.2 % (42.0-52.0); Hemoglobin 13.8 g/dl (14.0-18.0); Imm Gran Abs Auto 0.02 X10*3/uL (0.00-0.03); Imm Gran Pct Auto 0.4 % (0.0-0.4); Lymphocytes Absolute Auto 1.5 X10*3/uL (1.2-4.9); Lymphocytes Percent Auto 27.2 % (20-40); Mean Corpuscular HGB Conc 34.3 g/dl (31.0-36.0); Mean Corpuscular Hemoglobin 32.2 pg (27.0-33.0); Mean Corpuscular Volume 93.7 fL (80.0-98.0); Mean Platelet Volume 10.2 fL (9.4-12.4); Monocytes Absolute Auto 0.4 X10*3/uL (0.1-1.2); Monocytes Percent Auto 7.6 % (2-11); Neutrophils Absolute Auto 3.3 x10*3/uL (2.0-8.3); Neutrophils Percent Auto 59.7 % (45-73); Platelet Count 208 X10*3/uL (160-400); Red Blood Count 4.29 X10*6/uL (4.60-5.80); Red Cell Distribution Width 12.3 % (11.0-16.0); White Blood Count 5.5 X10*3/uL (4.8-10.8)
[2021-02-02 12:30] LABS: Alanine Aminotransferase 17 U/L (0-40); Albumin Level 4.3 g/dL (3.5-5.0); Alkaline Phosphatase 103 U/L (39-117); Anion Gap 12 (12-20); Aspartate Amino Transferase 13 U/L (5-37); Bilirubin Total 0.4 mg/dL (0.0-1.0); Blood Urea Nitrogen 10 mg/dL (9-16); Calcium 9.7 mg/dL (8.4-10.2); Carbon Dioxide 28 mmol/L (22-29); Chloride 102 mmol/L (96-108); Cholesterol 209 mg/dL; Estimated Glomerular Filt Rate > 60; Glucose Random 139 mg/dL (60-115); HDL Cholesterol 35 mg/dL; LDL Cholesterol Calculated 129 mg/dl; Potassium 4.2 mmol/L (3.3-5.1); Sodium 138 mmol/L (135-145); Total Protein 7.4 g/dL (6.5-8.0); Triglycerides 225 mg/dL
[2021-02-02 12:40] LABS: Reflex LDLD? No
[2021-02-02 12:47] LABS: Erythrocyte Sedimentation Rate 16 MM/HR (0-15)
[2021-02-02 13:01] LABS: HBsAGNum1 0.13 S/CO (0.00-0.99); Hepatitis B Surface Antigen Negative (Negative); ~HepC Num1 0.06 S/CO (0.00-0.79); ~Hepatitis A Antibody IgM Nonreactive (Nonreactive); ~Hepatitis C Antibody Nonreactive (Nonreactive)
[2021-02-02 13:05] LABS: HBc Num1 0.02 S/CO (0.00-0.79); Hepatitis B Core Antibody Nonreactive (Nonreactive); ~Hepatitis B Surface Antibody NONREACTIVE (Nonreactive)
[2021-02-04 15:56] LABS: TS Negative Control Passed; TS Panel A 0; TS Panel B 0; TS Positive Control Passed; TSpotTB Negative (Negative)
== END 2021-02-02 11:01 | disposition home or self-care (01) ==
LOC: HO.LAB 11:00
PROVIDERS: PCP Internal Medicine; Visit Provider Nurse Practitioner Family
DX: M05.9 Rheumatoid arthritis with rheumatoid factor, unspecified (principal)
CPT/HCPCS: 36415; 80053; 80061; 85025; 85652; 86140; 86481; 86704; 86706; 86709; 86803; 87340

== ENCOUNTER 2021-03-28 10:59 | Outpatient (REF) | payer MEDICAID, SELFPAY ==
--- NOTE | ~2021-03-28 | XR_ITS ---
EXAMINATION: XR ankle RT 2V, XR foot RT 2V, XR foot LT 2V, XR ankle LT 2V CLINICAL INFORMATION: Reason for Exam M05.9 - Rheumatoid arthritis with rheumatoid factor, unsp... COMPARISON: Bilateral feet radiographs 12/10/2011, left ankle radiographs 04/21/2018. TECHNIQUE: Three views of the bilateral feet and bilateral ankles XR/XR ankle LT 2V FINDINGS/IMPRESSION: Right foot and ankle: No acute fracture or dislocation appreciated. Moderate degenerative changes of the tibiotalar joint with degenerative spurring. Ankle mortise is congruent. Tibiotalar joint space is maintained. Advanced degenerative changes of the tarsotarsal and tarsometatarsal joints with extensive loss of joint space and exuberant sclerosis and osteophytosis, with subchondral cystic change limiting evaluation for discrete erosions. Suspected ankylosis of the third and fourth metatarsals. Moderate degenerative changes of the first metatarsophalangeal joint with loss of joint space and degenerative spurring. There is a marginal erosion noted along the lateral aspect of the base of the first proximal phalanx, possibly present on prior however more conspicuous. Findings are progressed from prior. No joint effusion. Soft tissue swelling about the foot and ankle. Achilles tendon enthesopathy. Left foot and ankle: No acute fracture or dislocation appreciated. Advanced degenerative changes of the ankle with complete loss of tibiotalar and fibulotalar joint space and subtarsal joint space, exuberant osteophytes, and subchondral cystic change limiting assessment for discrete erosions. Findings are minimally progressed from prior. Advanced degenerative changes of the dorsal midfoot and with osteophytosis similar to prior. Achilles tendon enthesopathy. Moderate degenerative changes of the first metatarsophalangeal joint with loss of joint space similar to prior. New marginal erosion noted along the lateral aspect of the base of the first proximal phalanx. No joint effusion. Soft tissue swelling about the foot and ankle.
--- NOTE | ~2021-03-28 | XR_ITS ---
EXAMINATION: XR ankle RT 2V, XR foot RT 2V, XR foot LT 2V, XR ankle LT 2V CLINICAL INFORMATION: Reason for Exam M05.9 - Rheumatoid arthritis with rheumatoid factor, unsp... COMPARISON: Bilateral feet radiographs 12/10/2011, left ankle radiographs 04/21/2018. TECHNIQUE: Three views of the bilateral feet and bilateral ankles XR/XR ankle RT 2V FINDINGS/IMPRESSION: Right foot and ankle: No acute fracture or dislocation appreciated. Moderate degenerative changes of the tibiotalar joint with degenerative spurring. Ankle mortise is congruent. Tibiotalar joint space is maintained. Advanced degenerative changes of the tarsotarsal and tarsometatarsal joints with extensive loss of joint space and exuberant sclerosis and osteophytosis, with subchondral cystic change limiting evaluation for discrete erosions. Suspected ankylosis of the third and fourth metatarsals. Moderate degenerative changes of the first metatarsophalangeal joint with loss of joint space and degenerative spurring. There is a marginal erosion noted along the lateral aspect of the base of the first proximal phalanx, possibly present on prior however more conspicuous. Findings are progressed from prior. No joint effusion. Soft tissue swelling about the foot and ankle. Achilles tendon enthesopathy. Left foot and ankle: No acute fracture or dislocation appreciated. Advanced degenerative changes of the ankle with complete loss of tibiotalar and fibulotalar joint space and subtarsal joint space, exuberant osteophytes, and subchondral cystic change limiting assessment for discrete erosions. Findings are minimally progressed from prior. Advanced degenerative changes of the dorsal midfoot and with osteophytosis similar to prior. Achilles tendon enthesopathy. Moderate degenerative changes of the first metatarsophalangeal joint with loss of joint space similar to prior. New marginal erosion noted along the lateral aspect of the base of the first proximal phalanx. No joint effusion. Soft tissue swelling about the foot and ankle.
[2021-03-28 12:35] LABS: MANUAL DIFF FLAG NO
[2021-03-28 13:12] LABS: Basophils Percent Auto 0.3 % (0-2); Eosinophils Absolute Auto 0.2 X10*3/uL (0.0-0.4); Eosinophils Percent Auto 3.5 % (0-4); Hematocrit 42.6 % (42.0-52.0); Hemoglobin 14.7 g/dl (14.0-18.0); Imm Gran Abs Auto 0.02 X10*3/uL (0.00-0.03); Imm Gran Pct Auto 0.3 % (0.0-0.4); Lymphocytes Absolute Auto 1.7 X10*3/uL (1.2-4.9); Lymphocytes Percent Auto 28.9 % (20-40); Mean Corpuscular HGB Conc 34.5 g/dl (31.0-36.0); Mean Corpuscular Volume 92.6 fL (80.0-98.0); Mean Platelet Volume 10.3 fL (9.4-12.4); Monocytes Absolute Auto 0.5 X10*3/uL (0.1-1.2); Monocytes Percent Auto 8.5 % (2-11); Neutrophils Absolute Auto 3.4 x10*3/uL (2.0-8.3); Neutrophils Percent Auto 58.5 % (45-73); Platelet Count 188 X10*3/uL (160-400); Red Cell Distribution Width 12.9 % (11.0-16.0); White Blood Count 5.8 X10*3/uL (4.8-10.8)
[2021-03-28 13:39] LABS: C Reactive Protein 0.11 mg/dL (< or = 0.50); Cholesterol 224 mg/dL; HDL Cholesterol 39 mg/dL; LDL Cholesterol Calculated 121 mg/dl; Triglycerides 323 mg/dL
[2021-03-28 13:50] LABS: Reflex LDLD? No
[2021-03-28 14:12] LABS: Erythrocyte Sedimentation Rate 4 MM/HR (0-15)
== END 2021-03-28 11:00 | disposition home or self-care (01) ==
LOC: HO.XRAY 10:59
PROVIDERS: PCP Internal Medicine; Visit Provider Nurse Practitioner Family
DX: M05.9 Rheumatoid arthritis with rheumatoid factor, unspecified (principal)
CPT/HCPCS: 36415; 73600; 73620; 80061; 85025; 85652; 86140; 99212

== ENCOUNTER 2021-04-05 13:46 | Emergency (ER) | payer MEDICAID, SELFPAY ==
[2021-04-05 13:53] VITALS: BP 138/80; PULSE 112; O2SAT 98
[2021-04-05 14:20] VITALS: BP 152/106; PULSE 100; RESP 19; TEMP 36.6; O2SAT 98; BMI 40.1
[2021-04-05 16:07] VITALS: BP 143/87; PULSE 92; RESP 18; TEMP 36.8; O2SAT 99
--- NOTE | 2021-04-05 16:15 | ED.GENADULT ---
HPI - General Adult General Chief complaint: General Medical Stated complaint: L hand foot elbow pain swelling Time Seen by Provider: 04/05/21 15:43 Source: patient Mode of arrival: ambulatory History of Present Illness HPI narrative: 45yoM with seropositive RA (RF+ CCP+) on Kevzara sleep apnea, HTN, lumbar radiculopathy, epilepsy, presenting to the emergency department complaining of left elbow, left hand, and left foot/ankle pain and swelling worsening over the past week. Admits recently saw his drum plater on 03/28 had labs/x-rays outpatient and symptoms have been progressive/worsening. Was instructed to come to ED by drum plater. Reports compliance with Kevzara. Denies known injury/trauma or fall, numbness, tingling, weakness, fever/chills, CP/SOB Onset (ago): day(s) Related Data Home Medications Medication Instructions Recorded Confirmed phenytoin sodium extended 100 mg 200 mg PO TID 02/07/20 03/28/21 capsule (Dilantin Extended) phenobarbital 97.2 mg tablet 194.4 mg PO BEDTIME 03/28/21 03/28/21 Previous Rx's Medication Instructions Recorded naproxen 500 mg tablet 500 mg PO BID #60 tab 03/15/20 cyclobenzaprine 10 mg tablet 10 mg PO Q8H #20 tab 07/26/20 cane #1 ea 02/01/21 sarilumab 200 mg/1.14 mL 200 mg (1.14 mL) SUBCUT Q2W #2.28 02/12/21 subcutaneous pen injector (Kevzara) ml gabapentin 100 mg capsule 200 mg PO BID #120 cap 03/23/21 dexamethasone 6 mg tablet 6 mg PO DAILY #6 tab 04/05/21 (Decadron) Allergies Allergy/AdvReac Type Severity Reaction Status Date / Time Sulfa (Sulfonamide Allergy Severe DIFFICULTY Verified 03/28/21 11:45 Antibiotics) BREATHING, [SULFA (SULFONAMIDE RASH, ANTIBIOTICS)] rash, hypertension prednisone Allergy Palpitation Verified 03/28/21 11:45 s Review of Systems Review of Systems: Constitutional: No Fever, No Chills, No Fatigue, No Malaise ENT/Mouth: No Ear Pain, No Nasal Congestion, No sore throat, No Rhinorrhea Eyes: No Eye Pain, No Swelling, No Redness Cardiovascular: No Chest Pain, No SOB, No Edema, No Palpitations Respiratory: No Cough, No Sputum, No Dyspnea Gastrointestinal: No Nausea, No Vomiting, No Diarrhea, No Constipation, No Abdominal pain Genitourinary: No Dysuria, No Urinary Frequency, No Hematuria, No Flank Pain Musculoskeletal: + joint pain, + Myalgias, + Joint Swelling Skin: No Skin Lesions, No rash Neuro: No Weakness, No Numbness, No Paresthesias, No Headache Yes all other systems are reviewed and are negative [facility] Past Medical History Attestation statement: The following information was validated with the patient. 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) Do you presently have visiting nurse or other home services: No Alcohol intake: never Patient Tobacco Use Status: Never used Tobacco e-Cigarette/Vaping Use: Never Used Advance Directives: No Advance Directives Information Provided: Yes Current occupational status: disabled Physical Exam Vital Signs: Vital Signs: Last Vital Signs Temp 97.5 F 04/05/21 17:51 Pulse 91 04/05/21 17:51 Resp 18 04/05/21 17:51 BP 129/90 H 04/05/21 17:51 Pulse Ox 96 04/05/21 17:51 BMI result Body Mass Index 40.1 Const: Other: In pain General: cooperative, healthy appearing and no acute distress Orientation/consciousness: patient oriented x3 Limitations: no limitations HENMT: Head: Yes normal to inspection Ears: hearing grossly normal bilaterally General nose exam: Normal external nose present Face and sinus: Yes normal facial exam Eyes: General: appearance normal, both eyes and all related structures EOM: EOMs intact bilaterally Neck: Neck: Yes normal visual inspection and Yes no meningeal signs Resp: Effort & Inspection: normal respiratory effort and no respiratory distress Auscultation: clear to auscultation bilaterally Cardio: Rate: regular rate Heart sounds: S1 normal heart sound present and S2 normal heart sound present Peripheral pulses: Peripheral pulses 2+ throughout GI: Inspection: Yes normal to inspection Palpation (GI): Soft to palpation, nontender and no guarding Skin: Rashes: no rashes Wounds: no wounds Neuro: General: patient oriented x3, tone normal and no meningeal signs Extrem: Other: Left elbow with mild swelling. No erythema/warmth/fluctuance/ecchymosis. Tender to palpation. Decreased ROM. Neurovascular intact distally Left hand diffusely tender to palpation > thumb MCP with notable swelling and decreased ROM. Sensation intact. Neurovascularly intact. No erythema/warmth/fluctuance or induration Left foot and ankle with notable swelling and tenderness to palpation greater to lateral aspect. No erythema/warmth/fluctuance. Neurovascular intact. Decreased ROM secondary to pain. Course Course Course Narrative: -1757--no leukocytosis. ESR 5. CRP WNL. -uric acid level mildly elevated at 10.4 > likely superimposed gout on RA >> [place] messaged patient's drum plater. Per chart review/prior notes patient instructed by Cardiology not to take prednisone due to previous side effect of palpitations. Case discussed with Dr. Reyna, will trial 6 mg of p.o. Decadron x 6 days -patient also provided with walking boot to left lower extremity due to foot inverting during ambulation secondary to pain/swelling to avoid secondary fracture/ankle injury Results discussed with patient including worrisome signs and symptoms and strict return precautions & needed close follow-up with Rheumatology. Patient reports symptomatic improvement after IM Toradol in the emergency department. Was given 1st dose of Decadron. He verbalized understanding feel safe for discharge home at this time Medical Decision Making MDM Narrative Medical decision making narrative: 45yoM with seropositive RA (RF+ CCP+) on Kevzara sleep apnea, HTN, lumbar radiculopathy, epilepsy, presenting to the emergency department complaining of left elbow, left hand, and left foot/ankle pain and swelling worsening over the past week. On exam vital signs stable, NAD, nontoxic appearing, physical exam as above. Concern for rheumatoid arthritis flare. Lower concern for septic joint/arthritis or gout. Low concern for fracture. Lab/imaging reviewed from 03/28. Plan: Labs, pain control, re-evaluation Medical Records Medical records reviewed: Yes I reviewed the patient's medical records. Lab Data Lab results reviewed: Yes I reviewed the patient's lab results. Result diagrams: 04/05/21 16:55 04/05/21 16:55 Labs: Lab Results 04/05/21 04/05/21 04/05/21 Range/Units 16:55 16:55 16:55 WBC 5.7 (4.8-10.8) X10*3/uL RBC 4.48 L (4.60-5.80) X10*6/uL Hgb 14.4 (14.0-18.0) g/dl Hct 41.7 L (42.0-52.0) % MCV 93.1 (80.0-98.0) fL MCH 32.1 (27.0-33.0) pg MCHC 34.5 (31.0-36.0) g/dl RDW 13.0 (11.0-16.0) % Plt Count 167 (160-400) X10*3/uL MPV 9.6 (9.4-12.4) fL Immature Gran % (Auto) 0.2 (0.0-0.4) % Neut % (Auto) 59.6 (45-73) % Lymph % (Auto) 25.2 (20-40) % [place] % (Auto) 9.9 (2-11) % Eos % (Auto) 4.6 H (0-4) % Baso % (Auto) 0.5 (0-2) % Lymph # (Auto) 1.4 (1.2-4.9) X10*3/uL [place] # (Auto) 0.6 (0.1-1.2) X10*3/uL Eos # (Auto) 0.3 (0.0-0.4) X10*3/uL Baso # (Auto) 0.0 (0.0-0.2) X10*3/uL Abs Immat Gran (auto) 0.01 (0.00-0.03) X10*3/uL Absolute Neuts (auto) 3.4 (2.0-8.3) x10*3/uL Absolute Nucleated RBC 0.000 (0.0-0.012) X10*3/uL Nucleated RBC % (auto) 0.0 (0.0-0.2) /100WBC ESR 5 (0-15) MM/HR Sodium 140 (135-145) mmol/L Potassium 4.5 (3.3-5.1) mmol/L Chloride 103 (96-108) mmol/L Carbon Dioxide 28 (22-29) mmol/L Anion Gap 14 (12-20) BUN 12 (9-16) mg/dL Creatinine 0.85 (0.5-1.4) mg/dL Estim Creat Clear Calc 146.8 Estimated GFR > 60 Random Glucose 86 D (60-115) mg/dL Uric Acid 10.4 H (3.4-7.0) mg/dL Calcium 10.3 H D (8.4-10.2) mg/dL C-Reactive Protein 0.11 (< or = 0.50) mg/dL Discharge Plan Discharge Clinical Impression: Gout, Rheumatoid arthritis flare Patient Disposition: Home, Self-Care Instructions: Gout (ED), Rheumatoid Arthritis (ED) Additional Instructions: Your blood work was reassuring however your uric acid level is elevated consistent with gout in addition to your rheumatoid arthritis Continue taking prescribed naproxen In addition Decadron as an oral steroid, take as prescribed Please follow-up with her drum plater, call tomorrow If joints becomes to look infected, or red, warm, increasingly/increasingly painful please return to the ED Kunz an?lisis de michael fue tranquilizador, sin embargo, kunz nivel de ?cido ?rico est? elevado, lo que es compatible con la gota, adem?s de kunz artritis reumatoide. Contin?e tomando naproxeno recetado Adem?s de Decadron patrica esteroide oral, t?thomas seg?n lo prescrito. Por favor, seguimiento con kunz reumat?logo, llame ma?zaki Si las articulaciones se zurdo infectadas, o enrojecidas, calientes, cada vez m?s/cada vez m?s dolorosas, regrese al servicio de urgencias. Prescriptions: New dexamethasone [Decadron] 6 mg tablet 6 mg PO DAILY Qty: 6 RF: 0 No Action naproxen 500 mg tablet 500 mg PO BID Qty: 60 RF: 2 (DME) cane Device See Rx Instructions .Route Qty: 1 RF: 0 Kevzara 200 mg/1.14 mL pen injector 200 mg subcut Q2W Qty: 2.28 RF: 2 gabapentin 100 mg capsule 200 mg PO BID Qty: 120 RF: 1 phenytoin sodium extended [Dilantin Extended] 100 mg Capsule 200 mg PO TID RF: 0 phenobarbital 97.2 mg tablet 194.4 mg PO BEDTIME RF: 0 cyclobenzaprine 10 mg tablet 10 mg PO Q8H Qty: 20 RF: 0 Referrals: Tabitha Macdonald NP [Nurse Practitioner] - 1 day Print Language: Amharic
[2021-04-05] MEDS: Ketorolac Tromethamine 30 MG/ML VIAL IM (16:57)
[2021-04-05 16:59] LABS: MANUAL DIFF FLAG NO
[2021-04-05 17:01] LABS: Basophils Percent Auto 0.5 % (0-2); Eosinophils Absolute Auto 0.3 X10*3/uL (0.0-0.4); Eosinophils Percent Auto 4.6 % (0-4); Hematocrit 41.7 % (42.0-52.0); Hemoglobin 14.4 g/dl (14.0-18.0); Imm Gran Abs Auto 0.01 X10*3/uL (0.00-0.03); Imm Gran Pct Auto 0.2 % (0.0-0.4); Lymphocytes Absolute Auto 1.4 X10*3/uL (1.2-4.9); Lymphocytes Percent Auto 25.2 % (20-40); Mean Corpuscular HGB Conc 34.5 g/dl (31.0-36.0); Mean Corpuscular Hemoglobin 32.1 pg (27.0-33.0); Mean Corpuscular Volume 93.1 fL (80.0-98.0); Mean Platelet Volume 9.6 fL (9.4-12.4); Monocytes Absolute Auto 0.6 X10*3/uL (0.1-1.2); Monocytes Percent Auto 9.9 % (2-11); Neutrophils Absolute Auto 3.4 x10*3/uL (2.0-8.3); Neutrophils Percent Auto 59.6 % (45-73); Platelet Count 167 X10*3/uL (160-400); Red Blood Count 4.48 X10*6/uL (4.60-5.80); White Blood Count 5.7 X10*3/uL (4.8-10.8)
[2021-04-05 17:23] LABS: Anion Gap 14 (12-20); Blood Urea Nitrogen 12 mg/dL (9-16); C Reactive Protein 0.11 mg/dL (< or = 0.50); Calcium 10.3 mg/dL (8.4-10.2); Carbon Dioxide 28 mmol/L (22-29); Chloride 103 mmol/L (96-108); Creatinine Clr Calc Pharmacy 146.8; Estimated Glomerular Filt Rate > 60; Glucose Random 86 mg/dL (60-115); Potassium 4.5 mmol/L (3.3-5.1); Sodium 140 mmol/L (135-145)
[2021-04-05 17:40] LABS: Uric Acid 10.4 mg/dL (3.4-7.0)
[2021-04-05 17:50] LABS: Erythrocyte Sedimentation Rate 5 MM/HR (0-15)
[2021-04-05 17:51] VITALS: BP 129/90; PULSE 91; RESP 18; TEMP 36.4; O2SAT 96
[2021-04-05] MEDS: dexAMETHasone 6 MG TABLET PO (19:11)
== END 2021-04-05 19:12 | disposition home or self-care (01) ==
PROVIDERS: Physician Assistant; Emergency Provider Internal Medicine
DX: M10.9 Gout, unspecified (principal); M05.9 Rheumatoid arthritis with rheumatoid factor, unspecified; M79.642 Pain in left hand; M25.522 Pain in left elbow; M79.672 Pain in left foot; M25.572 Pain in left ankle and joints of left foot; M79.10 Myalgia, unspecified site; I10 Essential (primary) hypertension
CPT/HCPCS: 36415; 80048; 84550; 85025; 85652; 86140; 96372; 99284; J1885; J8540

== ENCOUNTER 2021-06-29 12:00 | Outpatient (REF) | payer MEDICAID, SELFPAY ==
[2021-06-29 13:42] LABS: MANUAL DIFF FLAG NO
[2021-06-29 14:10] LABS: Basophils Percent Auto 0.5 % (0-2); Eosinophils Absolute Auto 0.2 X10*3/uL (0.0-0.4); Eosinophils Percent Auto 4.3 % (0-4); Hematocrit 40.7 % (42.0-52.0); Hemoglobin 14.4 g/dl (14.0-18.0); Imm Gran Abs Auto 0.02 X10*3/uL (0.00-0.03); Imm Gran Pct Auto 0.4 % (0.0-0.4); Lymphocytes Absolute Auto 1.5 X10*3/uL (1.2-4.9); Lymphocytes Percent Auto 26.4 % (20-40); Mean Corpuscular HGB Conc 35.4 g/dl (31.0-36.0); Mean Corpuscular Hemoglobin 33.2 pg (27.0-33.0); Mean Corpuscular Volume 93.8 fL (80.0-98.0); Mean Platelet Volume 10.2 fL (9.4-12.4); Monocytes Absolute Auto 0.6 X10*3/uL (0.1-1.2); Monocytes Percent Auto 10.5 % (2-11); Neutrophils Absolute Auto 3.3 x10*3/uL (2.0-8.3); Neutrophils Percent Auto 57.9 % (45-73); Platelet Count 177 X10*3/uL (160-400); Red Blood Count 4.34 X10*6/uL (4.60-5.80); Red Cell Distribution Width 12.1 % (11.0-16.0); White Blood Count 5.6 X10*3/uL (4.8-10.8)
[2021-06-29 14:22] LABS: Alanine Aminotransferase 21 U/L (0-40); Albumin Level 4.4 g/dL (3.5-5.0); Alkaline Phosphatase 82 U/L (39-117); Anion Gap 15 (12-20); Aspartate Amino Transferase 15 U/L (5-37); Bilirubin Total 0.2 mg/dL (0.0-1.0); Blood Urea Nitrogen 12 mg/dL (9-16); C Reactive Protein 0.04 mg/dL (< or = 0.50); Calcium 9.9 mg/dL (8.4-10.2); Carbon Dioxide 25 mmol/L (22-29); Chloride 103 mmol/L (96-108); Estimated Glomerular Filt Rate > 60; Glucose Random 89 mg/dL (60-115); Sodium 139 mmol/L (135-145); Total Protein 7.4 g/dL (6.5-8.0)
[2021-06-29 14:56] LABS: Erythrocyte Sedimentation Rate 3 MM/HR (0-15)
== END 2021-06-29 12:01 | disposition home or self-care (01) ==
LOC: HO.LAB 12:00
PROVIDERS: PCP Internal Medicine; Visit Provider Nurse Practitioner Family
DX: M05.9 Rheumatoid arthritis with rheumatoid factor, unspecified (principal); M17.11 Unilateral primary osteoarthritis, right knee; M79.671 Pain in right foot; M79.672 Pain in left foot
CPT/HCPCS: 36415; 80053; 85025; 85652; 86140; 99212

== ENCOUNTER 2021-07-11 11:06 | Outpatient (REF) | payer MEDICAID, SELFPAY ==
--- NOTE | ~2021-07-11 | XR_ITS ---
EXAMINATION: XR FOOT, RIGHT XR FOOT, LEFT XR ANKLE, RIGHT XR ANKLE, LEFT CLINICAL INFORMATION: Rheumatoid arthritis. COMPARISON: Bilateral foot and bilateral ankles 03/28/2021. TECHNIQUE: 3 views of each foot. 2 views of each ankle. FINDINGS: RIGHT FOOT AND RIGHT ANKLE: There are bony hypertrophic enthesophytes along the dorsal, proximal and distal intertarsal joints with soft tissue swelling. There is a moderate-sized retrocalcaneal enthesophyte. The ankle mortise and subtalar joints are normal. There is moderate lateral malleolar soft tissue swelling. The ankle mortise and subtalar joints are preserved. The metatarsophalangeal and interphalangeal joints are normal. No visible acute fracture or dislocation is seen. LEFT FOOT AND LEFT ANKLE: There are dorsal intertarsal, tarsometatarsal and ankle mortise joint moderate enthesophytes. There are large retrocalcaneal enthesophytes seen. There are no bony erosive changes. No acute fracture or dislocation. Moderate bimalleolar soft tissue swelling. XR/XR ankle RT 2V IMPRESSION: Exuberant large enthesophytes seen in the right foot, especially along the dorsal intertarsal joints and in the left foot along the tarsometatarsal joints and ankle mortise. Findings are most suggestive of rheumatoid-like arthritis. Large retrocalcaneal enthesophytes of both ankles. No acute fracture or dislocation seen. There is bimalleolar moderate soft tissue swelling.
--- NOTE | ~2021-07-11 | XR_ITS ---
EXAMINATION: XR FOOT, RIGHT XR FOOT, LEFT XR ANKLE, RIGHT XR ANKLE, LEFT CLINICAL INFORMATION: Rheumatoid arthritis. COMPARISON: Bilateral foot and bilateral ankles 03/28/2021. TECHNIQUE: 3 views of each foot. 2 views of each ankle. FINDINGS: RIGHT FOOT AND RIGHT ANKLE: There are bony hypertrophic enthesophytes along the dorsal, proximal and distal intertarsal joints with soft tissue swelling. There is a moderate-sized retrocalcaneal enthesophyte. The ankle mortise and subtalar joints are normal. There is moderate lateral malleolar soft tissue swelling. The ankle mortise and subtalar joints are preserved. The metatarsophalangeal and interphalangeal joints are normal. No visible acute fracture or dislocation is seen. LEFT FOOT AND LEFT ANKLE: There are dorsal intertarsal, tarsometatarsal and ankle mortise joint moderate enthesophytes. There are large retrocalcaneal enthesophytes seen. There are no bony erosive changes. No acute fracture or dislocation. Moderate bimalleolar soft tissue swelling. XR/XR foot LT 2V IMPRESSION: Exuberant large enthesophytes seen in the right foot, especially along the dorsal intertarsal joints and in the left foot along the tarsometatarsal joints and ankle mortise. Findings are most suggestive of rheumatoid-like arthritis. Large retrocalcaneal enthesophytes of both ankles. No acute fracture or dislocation seen. There is bimalleolar moderate soft tissue swelling.
--- NOTE | ~2021-07-11 | XR_ITS ---
EXAMINATION: XR FOOT, RIGHT XR FOOT, LEFT XR ANKLE, RIGHT XR ANKLE, LEFT CLINICAL INFORMATION: Rheumatoid arthritis. COMPARISON: Bilateral foot and bilateral ankles 03/28/2021. TECHNIQUE: 3 views of each foot. 2 views of each ankle. FINDINGS: RIGHT FOOT AND RIGHT ANKLE: There are bony hypertrophic enthesophytes along the dorsal, proximal and distal intertarsal joints with soft tissue swelling. There is a moderate-sized retrocalcaneal enthesophyte. The ankle mortise and subtalar joints are normal. There is moderate lateral malleolar soft tissue swelling. The ankle mortise and subtalar joints are preserved. The metatarsophalangeal and interphalangeal joints are normal. No visible acute fracture or dislocation is seen. LEFT FOOT AND LEFT ANKLE: There are dorsal intertarsal, tarsometatarsal and ankle mortise joint moderate enthesophytes. There are large retrocalcaneal enthesophytes seen. There are no bony erosive changes. No acute fracture or dislocation. Moderate bimalleolar soft tissue swelling. XR/XR ankle LT 2V IMPRESSION: Exuberant large enthesophytes seen in the right foot, especially along the dorsal intertarsal joints and in the left foot along the tarsometatarsal joints and ankle mortise. Findings are most suggestive of rheumatoid-like arthritis. Large retrocalcaneal enthesophytes of both ankles. No acute fracture or dislocation seen. There is bimalleolar moderate soft tissue swelling.
--- NOTE | ~2021-07-11 | XR_ITS ---
EXAMINATION: XR FOOT, RIGHT XR FOOT, LEFT XR ANKLE, RIGHT XR ANKLE, LEFT CLINICAL INFORMATION: Rheumatoid arthritis. COMPARISON: Bilateral foot and bilateral ankles 03/28/2021. TECHNIQUE: 3 views of each foot. 2 views of each ankle. FINDINGS: RIGHT FOOT AND RIGHT ANKLE: There are bony hypertrophic enthesophytes along the dorsal, proximal and distal intertarsal joints with soft tissue swelling. There is a moderate-sized retrocalcaneal enthesophyte. The ankle mortise and subtalar joints are normal. There is moderate lateral malleolar soft tissue swelling. The ankle mortise and subtalar joints are preserved. The metatarsophalangeal and interphalangeal joints are normal. No visible acute fracture or dislocation is seen. LEFT FOOT AND LEFT ANKLE: There are dorsal intertarsal, tarsometatarsal and ankle mortise joint moderate enthesophytes. There are large retrocalcaneal enthesophytes seen. There are no bony erosive changes. No acute fracture or dislocation. Moderate bimalleolar soft tissue swelling. XR/XR foot RT 2V IMPRESSION: Exuberant large enthesophytes seen in the right foot, especially along the dorsal intertarsal joints and in the left foot along the tarsometatarsal joints and ankle mortise. Findings are most suggestive of rheumatoid-like arthritis. Large retrocalcaneal enthesophytes of both ankles. No acute fracture or dislocation seen. There is bimalleolar moderate soft tissue swelling.
== END 2021-07-11 11:07 | disposition home or self-care (01) ==
LOC: HO.XRAY 11:06
PROVIDERS: PCP Internal Medicine; Visit Provider Nurse Practitioner Family
DX: M05.9 Rheumatoid arthritis with rheumatoid factor, unspecified (principal)
CPT/HCPCS: 73600; 73620

== ENCOUNTER 2021-09-27 14:42 | Outpatient (REF) | payer MEDICAID, SELFPAY ==
--- NOTE | ~2021-09-27 | XR_ITS ---
EXAMINATION: XR HAND, RIGHT CLINICAL INFORMATION: Chronic pain. COMPARISON: Radiographs dated 04/16/2018. TECHNIQUE: PA, lateral, and oblique views of the right hand. FINDINGS: Bony alignment and mineralization are normal. There is a slight ulnar minus variance. The proximal and distal carpal rows are intact. There is again significant joint space narrowing and subchondral sclerosis involving the second through fourth carpometacarpal joints, the intercarpal joints and the radiocarpal joint. There is mild narrowing of the fourth proximal interphalangeal joint. No fracture or dislocation is seen. There is no abnormal bony erosive change. The ulnar styloid appears intact. There is mild soft tissue swelling, in particular of the proximal fourth finger. No soft tissue gas or foreign body is seen. 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 No abnormal bony erosive change is seen. There is soft tissue swelling of the fingers, particularly the fourth finger. EXAMINATION: XR HAND, LEFT CLINICAL INFORMATION: Pain. COMPARISON: Radiographs dated 12/19/2015. TECHNIQUE: PA, lateral, and oblique views of the left hand. FINDINGS: The bones and soft tissues are normal. No fracture. Alignment is anatomic. Joint spaces are maintained. No erosions or soft tissue calcifications. IMPRESSION: Normal left hand.
--- NOTE | ~2021-09-27 | XR_ITS ---
EXAMINATION: XR HAND, RIGHT CLINICAL INFORMATION: Chronic pain. COMPARISON: Radiographs dated 04/16/2018. TECHNIQUE: PA, lateral, and oblique views of the right hand. FINDINGS: Bony alignment and mineralization are normal. There is a slight ulnar minus variance. The proximal and distal carpal rows are intact. There is again significant joint space narrowing and subchondral sclerosis involving the second through fourth carpometacarpal joints, the intercarpal joints and the radiocarpal joint. There is mild narrowing of the fourth proximal interphalangeal joint. No fracture or dislocation is seen. There is no abnormal bony erosive change. The ulnar styloid appears intact. There is mild soft tissue swelling, in particular of the proximal fourth finger. No soft tissue gas or foreign body is seen. XR/XR hand LT min 3V IMPRESSION: There are multi-focal osteoarthritic of the right hand and wrist, similar in extent to prior. No abnormal bony erosive change is seen. There is soft tissue swelling of the fingers, particularly the fourth finger. EXAMINATION: XR HAND, LEFT CLINICAL INFORMATION: Pain. COMPARISON: Radiographs dated 12/19/2015. TECHNIQUE: PA, lateral, and oblique views of the left hand. FINDINGS: The bones and soft tissues are normal. No fracture. Alignment is anatomic. Joint spaces are maintained. No erosions or soft tissue calcifications. IMPRESSION: Normal left hand.
[2021-09-27 15:09] LABS: MANUAL DIFF FLAG NO
[2021-09-27 16:07] LABS: Basophils Percent Auto 0.3 % (0-2); Eosinophils Absolute Auto 0.2 X10*3/uL (0.0-0.4); Eosinophils Percent Auto 3.4 % (0-4); Hematocrit 40.9 % (42.0-52.0); Hemoglobin 14.2 g/dl (14.0-18.0); Imm Gran Abs Auto 0.02 X10*3/uL (0.00-0.03); Imm Gran Pct Auto 0.3 % (0.0-0.4); Lymphocytes Absolute Auto 1.5 X10*3/uL (1.2-4.9); Lymphocytes Percent Auto 24.1 % (20-40); Mean Corpuscular HGB Conc 34.7 g/dl (31.0-36.0); Mean Corpuscular Hemoglobin 32.6 pg (27.0-33.0); Mean Corpuscular Volume 93.8 fL (80.0-98.0); Mean Platelet Volume 10.4 fL (9.4-12.4); Monocytes Absolute Auto 0.7 X10*3/uL (0.1-1.2); Monocytes Percent Auto 10.4 % (2-11); Neutrophils Absolute Auto 3.8 x10*3/uL (2.0-8.3); Neutrophils Percent Auto 61.5 % (45-73); Platelet Count 171 X10*3/uL (160-400); Red Blood Count 4.36 X10*6/uL (4.60-5.80); Red Cell Distribution Width 12.6 % (11.0-16.0); White Blood Count 6.2 X10*3/uL (4.8-10.8)
[2021-09-27 16:28] LABS: Alanine Aminotransferase 27 U/L (0-40); Albumin Level 4.4 g/dL (3.5-5.0); Alkaline Phosphatase 85 U/L (39-117); Anion Gap 13 (12-20); Aspartate Amino Transferase 18 U/L (5-37); Bilirubin Total 0.4 mg/dL (0.0-1.0); Blood Urea Nitrogen 10 mg/dL (9-16); C Reactive Protein 0.05 mg/dL (< or = 0.50); Calcium 9.5 mg/dL (8.4-10.2); Carbon Dioxide 28 mmol/L (22-29); Chloride 102 mmol/L (96-108); Cholesterol 194 mg/dL; Estimated Glomerular Filt Rate > 60; Glucose Random 105 mg/dL (60-115); HDL Cholesterol 37 mg/dL; LDL Cholesterol Calculated 115 mg/dl; Sodium 139 mmol/L (135-145); Total Protein 7.3 g/dL (6.5-8.0); Triglycerides 213 mg/dL
[2021-09-27 16:36] LABS: Reflex LDLD? No
[2021-09-27 17:09] LABS: Erythrocyte Sedimentation Rate 2 MM/HR (0-15)
== END 2021-09-27 14:43 | disposition home or self-care (01) ==
LOC: HO.LAB 14:42
PROVIDERS: PCP Internal Medicine; Visit Provider Nurse Practitioner Family
DX: M05.9 Rheumatoid arthritis with rheumatoid factor, unspecified (principal); M79.671 Pain in right foot; M79.672 Pain in left foot; M17.11 Unilateral primary osteoarthritis, right knee
CPT/HCPCS: 36415; 73130; 80053; 80061; 85025; 85652; 86140; 99212

== ENCOUNTER 2021-10-22 14:31 | Outpatient (REF) | payer MEDICAID, SELFPAY ==
[2021-10-22 18:20] LABS: Phenytoin Dilantin 22.5 ug/mL (10.0-20.0)
== END 2021-10-22 14:32 | disposition home or self-care (01) ==
LOC: HO.LAB 14:31
PROVIDERS: PCP Internal Medicine; Visit Provider Psychiatry & Neurology Neurology
DX: R56.1 Post traumatic seizures (principal); Z79.899 Other long term (current) drug therapy
CPT/HCPCS: 36415; 80184; 80185

== ENCOUNTER 2021-12-31 17:21 | Emergency (ER) | payer MEDICAID, SELFPAY ==
--- NOTE | ~2021-12-31 | US_ITS ---
EXAMINATION: US VENOUS ULTRASOUND WITH DOPPLER LOWER EXTREMITY, BILATERAL CLINICAL INFORMATION: Bilateral lower extremity swelling COMPARISON: Bilateral DVT study 09/05/2015 TECHNIQUE: Ultrasound of the deep veins is performed from the hip to the calf with compression sonography and color and pulse Doppler assessment. Spectral analysis with color-flow imaging is performed. FINDINGS: RIGHT: There is thrombus present in the popliteal vein extending up the femoral vein to the region of the profunda femoris vein which also contains thrombus. Superficial thrombus is present in the great saphenous vein.There is no significant popliteal fossa cyst. LEFT: There is normal venous compression and respiratory variation and augmented flow. The visualized common femoral vein, superficial femoral vein, profunda femoral vein, popliteal vein, and the trifurcation region shows no evidence of deep venous thrombosis. There is no significant popliteal fossa cyst. US/US venous duplex LE IMPRESSION: 1. Right lower extremity DVT as described above. 2. Left leg is negative for DVT.
[2021-12-31 17:28] VITALS: BP 146/91; PULSE 104; O2SAT 96
[2021-12-31 17:45] VITALS: BP 143/94; PULSE 103; RESP 20; TEMP 36.5; O2SAT 94; BMI 43.0
[2021-12-31 19:13] LABS: MANUAL DIFF FLAG NO
[2021-12-31 19:33] LABS: Alanine Aminotransferase 25 U/L (0-40); Albumin Level 4.2 g/dL (3.5-5.0); Alkaline Phosphatase 82 U/L (39-117); Anion Gap 16 (12-20); Aspartate Amino Transferase 22 U/L (5-37); Bilirubin Total 0.2 mg/dL (0.0-1.0); Blood Urea Nitrogen 10 mg/dL (9-16); C Reactive Protein 0.06 mg/dL (< or = 0.50); Calcium 9.4 mg/dL (8.4-10.2); Carbon Dioxide 28 mmol/L (22-29); Chloride 102 mmol/L (96-108); Creatinine Clr Calc Pharmacy 139.3; Estimated Glomerular Filt Rate > 60; Glucose Random 107 mg/dL (60-115); Sodium 142 mmol/L (135-145); Total Protein 7.1 g/dL (6.5-8.0)
[2021-12-31 19:34] LABS: Basophils Percent Auto 0.5 % (0-2); Eosinophils Absolute Auto 0.2 X10*3/uL (0.0-0.4); Eosinophils Percent Auto 3.2 % (0-4); Hematocrit 40.5 % (42.0-52.0); Hemoglobin 14.3 g/dl (14.0-18.0); Imm Gran Abs Auto 0.01 X10*3/uL (0.00-0.03); Imm Gran Pct Auto 0.2 % (0.0-0.4); Lymphocytes Absolute Auto 1.4 X10*3/uL (1.2-4.9); Lymphocytes Percent Auto 24.6 % (20-40); Mean Corpuscular HGB Conc 35.3 g/dl (31.0-36.0); Mean Corpuscular Hemoglobin 33.1 pg (27.0-33.0); Mean Corpuscular Volume 93.8 fL (80.0-98.0); Mean Platelet Volume 9.7 fL (9.4-12.4); Monocytes Absolute Auto 0.5 X10*3/uL (0.1-1.2); Monocytes Percent Auto 9.2 % (2-11); Neutrophils Absolute Auto 3.5 x10*3/uL (2.0-8.3); Neutrophils Percent Auto 62.3 % (45-73); Platelet Count 133 X10*3/uL (160-400); Red Blood Count 4.32 X10*6/uL (4.60-5.80); Red Cell Distribution Width 12.1 % (11.0-16.0); White Blood Count 5.6 X10*3/uL (4.8-10.8)
[2021-12-31 19:36] LABS: INTERNATIONAL NORM RATIO 1.1 (0.9-1.1); Prothrombin Time 12.4 SEC (10.0-13.1)
[2021-12-31 19:37] LABS: B Type Natriuretic Peptide < 10 pg/mL (<100)
[2021-12-31 19:39] LABS: Partial Thromboplastin Time 26.9 SEC (26.0-36.4)
[2021-12-31 20:48] LABS: Erythrocyte Sedimentation Rate 3 MM/HR (0-15)
[2021-12-31 21:53] VITALS: BP 142/89; PULSE 89; RESP 20; TEMP 36.8; O2SAT 97
--- NOTE | 2021-12-31 22:00 | ED_ITS ---
HPI - General Adult General Chief complaint: Extremity Problem Stated complaint: swollen legs Time Seen by Provider: 12/31/21 21:29 Source: patient Mode of arrival: ambulatory Limitations: no limitations History of Present Illness HPI narrative: 46-year-old male with history rheumatoid arthritis presents to the ED for right leg swelling for the past couple of days. Patient denies any chest pain or shortness of breath. Denies any fever, chills, or trauma Related Data Home Medications Medication Instructions Recorded Confirmed phenytoin sodium extended 100 mg 200 mg PO TID 02/07/20 09/27/21 capsule (Dilantin Extended) phenobarbital 97.2 mg tablet 194.4 mg PO BEDTIME 03/28/21 09/27/21 oxycodone 5 mg tablet 5 mg PO TID PRN 06/11/21 09/27/21 pantoprazole 40 mg tablet,delayed 40 mg PO DAILY 10/24/21 release Previous Rx's Medication Instructions Recorded naproxen 500 mg tablet 500 mg PO BID #60 tabs 03/15/20 cyclobenzaprine 10 mg tablet 10 mg PO Q8H #20 tabs 07/26/20 cane #1 ea 02/01/21 sarilumab 200 mg/1.14 mL 200 mg (1.14 mL) subcut Q2W #2.28 10/15/21 subcutaneous pen injector (Kevzara) mL gabapentin 100 mg capsule 200 mg PO BID #120 caps 12/19/21 apixaban 5 mg (74 tabs) tablets in 5 mg PO BID #73 ea 12/31/21 a dose pack (Eliquis DVT-PE Treat 30D Start) Allergies Allergy/AdvReac Type Severity Reaction Status Date / Time Sulfa (Sulfonamide Allergy Severe DIFFICULTY Verified 10/24/21 08:34 Antibiotics) BREATHING, [SULFA (SULFONAMIDE RASH, ANTIBIOTICS)] rash, hypertension prednisone Allergy Palpitation Verified 10/24/21 08:34 s Review of Systems Review of Systems: Right leg swelling Yes all other systems are reviewed and are negative PMF Past Medical History Medical History History of epilepsy HTN (hypertension) Lumbar radiculopathy Rheumatoid arthritis Rheumatoid arthritis Sleep apnea Tachycardia Surgical History History of spinal surgery Hx of bariatric surgery Hx of exploratory laparotomy Social History Social History 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) Do you presently have visiting nurse or other home services: No Alcohol intake: never Patient Tobacco Use Status: Never used Tobacco e-Cigarette/Vaping Use: Never Used Advance Directives: No Advance Directives Information Provided: No Current occupational status: disabled Physical Exam ED Vital Signs: Vital Signs - 24 hr 12/31/21 17:45 12/31/21 21:53 Temperature 97.7 F 98.2 F Pulse Rate 103 H 89 Respiratory Rate 20 20 Blood Pressure 143/94 H 142/89 H Pulse Oximetry 94 97 Oxygen Delivery Method Room Air Room Air BMI result Body Mass Index 43.0 Const General: cooperative, healthy appearing, comfortable, no acute distress, well developed, alert, awake and Physically active Orientation/consciousness: patient oriented x3 HENMT Head: Yes normal to inspection, Yes No palpable skull fracture present, Yes normocephalic, Yes atraumatic and No abrasion Eyes General: appearance normal, both eyes and all related structures Neck Neck: Yes normal visual inspection, Yes full ROM, Yes no lymphadenopathy, Yes no meningeal signs, Yes trachea midline, Yes supple, No anterior neck swelling and No tender Chest Chest palpation & inspection: normal inspection of the chest and normal palpation of entire chest wall Resp Effort & Inspection: normal respiratory effort and able to speak in complete sentences Auscultation: clear to auscultation bilaterally Cardio Jugular venous distension: no JVD Heart sounds: S1 normal heart sound present and S2 normal heart sound present GI Inspection: Yes normal to inspection and No abdominal wall ecchymosis Palpation (GI): Soft to palpation, not firm, nontender, no guarding and not rigid General: No CVA tenderness and Yes no CVA tenderness Back/Spine/Pelvis Back: no CVA tenderness, No CVA tenderness and No ecchymosis Skin General skin exam: no rashes or lesions noted and elasticity normal Neuro General: patient oriented x3, gait normal, tone normal, no meningeal signs and CN's II-XI intact bilaterally Extrem Other: Right lower extremity significantly more swollen than left. Right lower extremity positive for slight petechia. Lateral stem is positive for pedal pulses. General: Yes normal to inspection and Yes full ROM Psych Appearance: grossly normal, well kempt and not disheveled Course Course Course Narrative: Labs bilateral ultrasound ordered. Reevaluation(s) Reevaluation #1: Right lower extremity came back positive for DVT. ESR CRP negative. Hemoglobin hematocrit stable. Patient's platelets slightly lower than normal. Patient denies any bleeding from any orifices. Denies any blood in stool vomiting blood. Discussed cause with Dr. Reyna including giving Eliquis while platelets at 133. He states and recommend still give Eliquis and should be safe. Patient informed to return to the ED for any signs of bleeding such as rectal bleeding, vomiting blood, weakness, dizziness, black stool, or weakness. Time: 22:11 Medical Decision Making MDM Narrative Medical decision making narrative: DVT Lab Data Result diagrams: 12/31/21 19:07 12/31/21 19:07 Labs: Lab Results 12/31/21 12/31/21 12/31/21 Range/Units 19:07 19:07 19:07 WBC 5.6 (4.8-10.8) X10*3/uL RBC 4.32 L (4.60-5.80) X10*6/uL Hgb 14.3 (14.0-18.0) g/dl Hct 40.5 L (42.0-52.0) % MCV 93.8 (80.0-98.0) fL MCH 33.1 H (27.0-33.0) pg MCHC 35.3 (31.0-36.0) g/dl RDW 12.1 (11.0-16.0) % Plt Count 133 L (160-400) X10*3/uL MPV 9.7 (9.4-12.4) fL Immature Gran % (Auto) 0.2 (0.0-0.4) % Neut % (Auto) 62.3 (45-73) % Lymph % (Auto) 24.6 (20-40) % [place] % (Auto) 9.2 (2-11) % Eos % (Auto) 3.2 (0-4) % Baso % (Auto) 0.5 (0-2) % Lymph # (Auto) 1.4 (1.2-4.9) X10*3/uL [place] # (Auto) 0.5 (0.1-1.2) X10*3/uL Eos # (Auto) 0.2 (0.0-0.4) X10*3/uL Baso # (Auto) 0.0 (0.0-0.2) X10*3/uL Abs Immat Gran (auto) 0.01 (0.00-0.03) X10*3/uL Absolute Neuts (auto) 3.5 (2.0-8.3) x10*3/uL Absolute Nucleated RBC 0.000 (0.0-0.012) X10*3/uL Nucleated RBC % (auto) 0.0 (0.0-0.2) /100WBC ESR 3 (0-15) MM/HR PT 12.4 (10.0-13.1) SEC INR 1.1 (0.9-1.1) APTT 26.9 (26.0-36.4) SEC Sodium (135-145) mmol/L Potassium (3.3-5.1) mmol/L Chloride (96-108) mmol/L Carbon Dioxide (22-29) mmol/L Anion Gap (12-20) BUN (9-16) mg/dL Creatinine (0.5-1.4) mg/dL Estim Creat Clear Calc Estimated GFR Random Glucose (60-115) mg/dL Calcium (8.4-10.2) mg/dL Total Bilirubin (0.0-1.0) mg/dL AST (5-37) U/L ALT (0-40) U/L Alkaline Phosphatase (39-117) U/L C-Reactive Protein (< or = 0.50) mg/dL B-Natriuretic Peptide (<100) pg/mL Total Protein (6.5-8.0) g/dL Albumin (3.5-5.0) g/dL 12/31/21 12/31/21 Range/Units 19:07 19:07 WBC (4.8-10.8) X10*3/uL RBC (4.60-5.80) X10*6/uL Hgb (14.0-18.0) g/dl Hct (42.0-52.0) % MCV (80.0-98.0) fL MCH (27.0-33.0) pg MCHC (31.0-36.0) g/dl RDW (11.0-16.0) % Plt Count (160-400) X10*3/uL MPV (9.4-12.4) fL Immature Gran % (Auto) (0.0-0.4) % Neut % (Auto) (45-73) % Lymph % (Auto) (20-40) % [place] % (Auto) (2-11) % Eos % (Auto) (0-4) % Baso % (Auto) (0-2) % Lymph # (Auto) (1.2-4.9) X10*3/uL [place] # (Auto) (0.1-1.2) X10*3/uL Eos # (Auto) (0.0-0.4) X10*3/uL Baso # (Auto) (0.0-0.2) X10*3/uL Abs Immat Gran (auto) (0.00-0.03) X10*3/uL Absolute Neuts (auto) (2.0-8.3) x10*3/uL Absolute Nucleated RBC (0.0-0.012) X10*3/uL Nucleated RBC % (auto) (0.0-0.2) /100WBC ESR (0-15) MM/HR PT (10.0-13.1) SEC INR (0.9-1.1) APTT (26.0-36.4) SEC Sodium 142 (135-145) mmol/L Potassium 4.0 (3.3-5.1) mmol/L Chloride 102 (96-108) mmol/L Carbon Dioxide 28 (22-29) mmol/L Anion Gap 16 (12-20) BUN 10 (9-16) mg/dL Creatinine 0.92 (0.5-1.4) mg/dL Estim Creat Clear Calc 139.3 Estimated GFR > 60 Random Glucose 107 (60-115) mg/dL Calcium 9.4 (8.4-10.2) mg/dL Total Bilirubin 0.2 (0.0-1.0) mg/dL AST 22 (5-37) U/L ALT 25 (0-40) U/L Alkaline Phosphatase 82 (39-117) U/L C-Reactive Protein 0.06 (< or = 0.50) mg/dL B-Natriuretic Peptide < 10 (<100) pg/mL Total Protein 7.1 (6.5-8.0) g/dL Albumin 4.2 (3.5-5.0) g/dL Discharge Plan Discharge Clinical Impression: DVT (deep venous thrombosis) Patient Disposition: Home, Self-Care Instructions: Deep Vein Thrombosis (ED) Additional Instructions: La ecograf?a result? positiva para trombosis venosa profunda. Kunz recuento de plaquetas volvi? un poco m?s bajo de lo normal. Se le la? de milena con un anticoagulante Eliquis, que deber?a ser seguro para kunz nivel de plaquetas. Busque signos de sangrado, patrica sangrado rectal, v?mitos con michael, heces negr as, michael en las heces, v?mitos o tos, v?mitos de caf? molido, sangrado de los o?dos, michael en la orina, sangrado nasal, dolor abdominal, mareos, debilidad, cualquier otro s?ntoma preocupante. y acuda al servicio de urgencias de inmediato. Regrese al servicio de urgencias de inmediato por cualquier dolor en el pecho, dificultad para respirar, hinchaz?n de las piernas, dolor en la pantorrilla, tos con michael, sangrado rectal o cualquier otro s?ntoma preocupante. Realice un seguimiento con kunz proveedor de atenci?n primaria lo antes posible para repetir los an?lisis, patrica el recuento de plaquetas, y para nir evaluaci?n adicional de kunz TVP. Prescriptions: New Eliquis DVT-PE Treat 30D Start 5 mg (74 tabs) tablets,dose pack 5 mg PO BID Qty: 73 0RF Rx Instructions: Take 10 mg twice daily for 7 days followed by 5 mg twice daily. patient received first dose 10mg in the ED. No Action naproxen 500 mg tablet 500 mg PO BID Qty: 60 2RF (DME) cane Device See Rx Instructions .Route Qty: 1 0RF Rx Instructions: As directed oxycodone 5 mg tablet 5 mg PO TID PRN Kevzara 200 mg/1.14 mL pen injector 200 mg subcut Q2W Qty: 2.28 2RF gabapentin 100 mg capsule 200 mg PO BID Qty: 120 1RF phenytoin sodium extended [Dilantin Extended] 100 mg Capsule 200 mg PO TID phenobarbital 97.2 mg tablet 194.4 mg PO BEDTIME cyclobenzaprine 10 mg tablet 10 mg PO Q8H Qty: 20 0RF pantoprazole 40 mg tablet,delayed release (DR/EC) 40 mg PO DAILY Stand Alone Forms: Work/School Release Interventions: ED Discharge Assessment Last Done: 12/31/21 22:42 Discharge Date/Time: 12/31/21 22:42 Print Language: Mohawk
[2021-12-31] MEDS: Apixaban 5 MG TABLET 10 MG PO (22:14)
[2021-12-31] MEDS: oxyCODONE HCl Immed Release 5 MG TABLET PO (22:14)
--- NOTE | 2021-12-31 22:41 | PC.NURSE ---
Pt aox4. Breaths are even and unlabored. Discharged instructions provided. Pt verbalizes understanding.
== END 2021-12-31 22:42 | disposition home or self-care (01) ==
PROVIDERS: Physician Assistant; Emergency Provider Internal Medicine
DX: I82.431 Acute embolism and thrombosis of right popliteal vein (principal); R23.3 Spontaneous ecchymoses; I10 Essential (primary) hypertension; M05.9 Rheumatoid arthritis with rheumatoid factor, unspecified; Z79.01 Long term (current) use of anticoagulants; Z79.899 Other long term (current) drug therapy
CPT/HCPCS: 36415; 80053; 83880; 85025; 85610; 85652; 85730; 86140; 93970; 99284

== ENCOUNTER 2022-01-14 09:56 | Outpatient (REF) | payer MEDICAID, SELFPAY ==
[2022-01-14 10:06] LABS: MANUAL DIFF FLAG NO
[2022-01-14 10:26] LABS: Basophils Percent Auto 0.4 % (0-2); Eosinophils Absolute Auto 0.2 X10*3/uL (0.0-0.4); Hematocrit 42.1 % (42.0-52.0); Hemoglobin 14.7 g/dl (14.0-18.0); Imm Gran Abs Auto 0.01 X10*3/uL (0.00-0.03); Imm Gran Pct Auto 0.2 % (0.0-0.4); Lymphocytes Absolute Auto 1.6 X10*3/uL (1.2-4.9); Lymphocytes Percent Auto 32.5 % (20-40); Mean Corpuscular HGB Conc 34.9 g/dl (31.0-36.0); Mean Corpuscular Hemoglobin 33.1 pg (27.0-33.0); Mean Corpuscular Volume 94.8 fL (80.0-98.0); Mean Platelet Volume 9.9 fL (9.4-12.4); Monocytes Absolute Auto 0.4 X10*3/uL (0.1-1.2); Monocytes Percent Auto 9.2 % (2-11); Neutrophils Absolute Auto 2.6 x10*3/uL (2.0-8.3); Neutrophils Percent Auto 53.7 % (45-73); Platelet Count 185 X10*3/uL (160-400); Red Blood Count 4.44 X10*6/uL (4.60-5.80); Red Cell Distribution Width 12.4 % (11.0-16.0); White Blood Count 4.8 X10*3/uL (4.8-10.8)
== END 2022-01-14 09:57 | disposition home or self-care (01) ==
LOC: HO.LAB 09:56
PROVIDERS: PCP Internal Medicine; Visit Provider Nurse Practitioner Family
DX: M05.9 Rheumatoid arthritis with rheumatoid factor, unspecified (principal)
CPT/HCPCS: 36415; 85025

== ENCOUNTER → 2022-01-23 10:00 | Outpatient (BNV) | payer MEDICAID, SELFPAY | PROVIDERS: PCP Internal Medicine; Visit Provider Internal Medicine | DX: I82.401 Acute embolism and thrombosis of unspecified deep veins of right lower extremity (principal); Z79.01 Long term (current) use of anticoagulants | CPT/HCPCS: 99204; 99213; 99214 ==

== ENCOUNTER 2022-02-08 06:18 | Emergency (ER) | payer MEDICAID, SELFPAY ==
--- NOTE | ~2022-02-08 | XR_ITS ---
EXAMINATION: XR HAND, RIGHT CLINICAL INFORMATION: Pain COMPARISON: Previous x-ray September 2021 TECHNIQUE: PA, lateral, and oblique views of the right hand. FINDINGS: No acute fracture or dislocation. There is severe arthritis at the wrist with joint space narrowing and osteophyte formation. There may be disruption of the proximal carpal row and proximal migration of the capitate. There is extensive periarticular soft tissue ossification. There are degenerative changes at the FDC joints with osteophyte formation. There may be soft tissue swelling of the third and fourth fingers. XR/XR hand RT min 3V IMPRESSION: Severe arthritis at the wrist. Question soft tissue swelling third and fourth fingers.
[2022-02-08 06:36] VITALS: BP 140/70; PULSE 88; RESP 20; TEMP 36.8; O2SAT 96; BMI 44.3
[2022-02-08 07:26] VITALS: BP 159/76; PULSE 87; RESP 20; TEMP 36.6; O2SAT 95
--- NOTE | 2022-02-08 08:01 | ED.EXTPRO ---
HPI - Extremity Problem General Chief complaint: Extremity Injury, Upper Stated complaint: R HAND PAIN/CRAMP,H/O ARTHRITIS PER EMS Time Seen by Provider: 02/08/22 07:58 Source: patient, EMS and blintze roller Mode of arrival: EMS Limitations: language barrier History of Present Illness HPI Narrative: Patient is a 46 year old assigned male at with a history of RA presenting to the emergency department today with right wrist pain. Patient states that he was recently diagnosed with a DVT and hard to be started on Eliquis so he has been unable to take his normal pain medication because it is NSAIDs. Patient denies any dizziness, lightheadedness, abdominal pain, nausea, vomiting, fever, chills, blurry vision, double vision, loss of vision, chest pain, difficulty breathing, shortness of breath, back pain, night sweats, pain with urination, increased urinary frequency, increased urinary urgency, blood in his urine or stool, syncope or a near syncopal episode, recent trauma or falls, bowel incontinence, bladder incontinence, bowel retention, bladder retention, or any other complaints at this time. MD Complaint: extremity pain Onset (ago): hour(s) Pain Consistency: constant Location: right and other (wrist) Severity scale (1-10): 3 Quality: dull Radiation: none Relieving factors: nothing Exacerbating factors: nothing Associated symptoms: denies other symptoms Related Data Home Medications Medication Instructions Recorded Confirmed phenytoin sodium extended 100 mg 200 mg PO TID 02/07/20 01/23/22 capsule (Dilantin Extended) phenobarbital 97.2 mg tablet 97.2 mg PO BEDTIME 03/28/21 01/23/22 oxycodone 5 mg tablet 5 mg PO TID PRN Pain 06/11/21 01/23/22 pantoprazole 40 mg tablet,delayed 40 mg PO DAILY 10/24/21 01/23/22 release gabapentin 400 mg capsule 400 mg PO BID 01/17/22 01/23/22 ketotifen fumarate 0.025 % (0.035 1 drp ophthalmic (eye) BID 01/17/22 01/23/22 %) eye drops naloxone 4 mg/actuation nasal 1 spray intranasal Q2M 01/17/22 01/23/22 spray (Narcan) polyvinyl alcohol 1.4 % eye drops 1 drp ophthalmic (eye) TID-QID 01/17/22 01/23/22 (Artificial Tears (polyvinyl alcohol)) sildenafil 25 mg tablet 1 tab PO DAILY PRN Sexual Activity 01/17/22 01/23/22 Previous Rx's Medication Instructions Recorded cyclobenzaprine 10 mg tablet 10 mg PO Q8H #20 tabs 07/26/20 cane #1 ea 02/01/21 apixaban 5 mg (74 tabs) tablets in 5 mg PO BID #73 ea 12/31/21 a dose pack (Eliquis DVT-PE Treat 30D Start) sarilumab 200 mg/1.14 mL 200 mg (1.14 mL) subcut Q2W #2.28 01/11/22 subcutaneous pen injector (Kevzara) mL hydrocodone 5 mg-acetaminophen 325 1 tab PO DAILY PRN pain #7 tabs 02/08/22 mg tablet methylprednisolone 4 mg tablets in 4 mg PO DAILY #21 ea 02/08/22 a dose pack (Methylpred DP) Allergies Allergy/AdvReac Type Severity Reaction Status Date / Time Sulfa (Sulfonamide Allergy Severe DIFFICULTY Verified 01/23/22 10:31 Antibiotics) BREATHING, [SULFA (SULFONAMIDE RASH, ANTIBIOTICS)] rash, hypertension prednisone Allergy Palpitation Verified 01/23/22 10:31 s Review of Systems Constitutional: Constitutional: Reports no additional constitutional complaints, Denies chills, Denies fever(s) and Denies night sweats Eyes: Eyes: Reports no additional eye complaints, Denies blurry vision, Denies change in vision, Denies diplopia, Denies eye discharge, Denies loss of vision and Denies eye pain ENT: Denies dizziness Cardiovascular: Cardiovascular: Reports no additional cardiovascular complaints, Denies chest pain, Denies lightheadedness, Denies Loss of Consciousness and Denies dyspnea Respiratory: Respiratory: Reports no additional respiratory complaints and Denies dyspnea Gastrointestinal: Gastrointestinal: Reports no additional gastrointestinal complaints, Denies abdominal pain, Denies melena, Denies hematochezia, Denies change in bowel habits and Denies change in stool character Genitourinary: Genitourinary: Reports no additional male genitourinary complaints, Denies hematuria, Denies oliguria, Denies difficulty urinating, Denies dysuria, Denies urinary frequency, Denies urinary hesitancy, Denies urinary incontinence and Denies urinary urgency Musculoskeletal: Musculoskeletal: Reports no additional musculoskeletal complaints, Denies numbness and Denies tingling Comments: right wrist pain Neurologic: Denies dizziness, Denies loss of vision, Denies numbness and Denies tingling Psychiatric: Psychiatric: Reports no additional psychiatric complaints Endocrine: Endocrine: Reports no additional endocrine complaints Hematologic/Lymphatic: Hematologic/Lymphatic: Reports no additional hematologic/lymphatic complaints Allergic/Immunologic: Allergic/Immunologic: Reports no additional allergic/immunologic complaints PMFSH Past Medical History Attestation statement: The following information was validated with the patient. Source: old records reviewed Medical History History of epilepsy HTN (hypertension) Lumbar radiculopathy Rheumatoid arthritis Rheumatoid arthritis Sleep apnea Tachycardia Surgical History History of spinal surgery Hx of bariatric surgery Hx of exploratory laparotomy Family History Family History Maternal Uncle Colon cancer Paternal Aunt Breast cancer Social History Social History Household Members: Spouse Housing: Apartment Are you a primary care provider to a significant other at home: Yes ( disabled) Do you presently have visiting nurse or other home services: No Alcohol intake: never Patient Tobacco Use Status: Never used Tobacco Smoked in Last 30 Days: No e-Cigarette/Vaping Use: Never Used Use of substances other than those prescribed or required for medical reasons: No Advance Directives: No Advance Directives Information Provided: Yes service: No Current occupational status: disabled Physical Exam Vital Signs: Vital Signs: Last Vital Signs Temp 97.9 F 02/08/22 08:55 Pulse 88 02/08/22 08:55 Resp 20 02/08/22 08:55 BP 144/96 H 02/08/22 08:55 Pulse Ox 96 02/08/22 08:55 O2 Del Method 02/08/22 08:55 BMI result Body Mass Index 44.3 Const: General: cooperative, no acute distress, alert and awake Nutritional Appearance: well nourished Orientation/consciousness: patient oriented x3 Limitations: no limitations HEENT: Head: Yes normal to inspection and Yes atraumatic Ears: hearing grossly normal bilaterally and external ears normal General nose exam: Normal external nose present, no nasal discharge noted and no epistaxis Face and sinus: Yes normal facial exam, No abrasion and No laceration Mouth: Normal oral and palatal mucosa present, no drooling and no muffled voice Eyes: General: appearance normal, both eyes and all related structures Periorbital: periorbital findings normal Eyelids: Yes eyelids normal Conjunctivae: conjunctivae normal Pupils: Equal, round and reactive pupils present EOM: EOMs intact bilaterally Neck: Neck: Yes normal visual inspection, Yes full ROM and Yes no lymphadenopathy Chest: Chest palpation & inspection: normal inspection of the chest Resp: Effort & Inspection: normal respiratory effort and able to speak in complete sentences Auscultation: clear to auscultation bilaterally Cardio: Rate: regular rate Rhythm: regular rhythm GI: Inspection: Yes normal to inspection Neuro: General: patient oriented x3 and moves all extremities Cranial nerves: Yes Equal, round and reactive pupils present Cognition (Neuro): normal cognition Motor exam (neuro): 5/5 motor strength present throughout Sensory Exam: Normal double simultaneous stimulation for sensation Coordination: [id number] test normal Extrem: General: Yes normal to inspection, Yes full ROM and Yes capillary refill normal Psych: Appearance: grossly normal Mental Status: mental status grossly normal Affect: normal affect Attitude: cooperative Thought process: Normal thought process present Thought content: Normal thought content present Insight: Good insight present (Psych) Medications Administered Discontinued Medications Generic Name Dose Route Start Last Admin Trade Name Sherlyn PRN Reason Stop Dose Admin Hydrocodone Bitart/Acetaminophen 1 tab 02/08/22 09:27 02/08/22 09:38 Hydrocodone Bit/Acetam 5/325 Tablet PO 02/08/22 09:28 1 tab ONCE ONE Administration MDM - Extremity (Nontraumatic) MDM Narrative Medical decision making narrative: Patient is a 46 year old assigned male at with a history of RA presenting to the emergency department today with right wrist pain. Patient's physical exam was unremarkable. Patient's right hand x-ray showed significant right wrist arthritis. I explained my physical exam findings as well as all test results to the patient. I answered all questions asked by the patient. Patient received PO [place] which he stated helped his pain significantly. Patient states that he had palpitations when he had prednisone last but he'd like to try a course of steroids again because that did help. I stressed the importance of the patient taking his medication as prescribed. I stressed the importance of the patient following up with his primary care provider and arthritis specialist. I stressed the importance of the patient returning to the emergency department immediately if his symptoms were to worsen or if he were to develop any dizziness, shortness of breath, difficulty breathing, chest pain, blurry vision, loss of vision, nausea, vomiting, abdominal pain, fever, chills, back pain, or any other complaints. Patient verbalized agreement and understanding with this treatment plan and discharge. Medical Records Attestation: I reviewed the patient's medical records. Imaging Data Right hand x-ray: Attestation: I personally reviewed and interpreted this imaging study as follows: My impression: Wrist arthritis. Radiologist's impression: EXAMINATION: XR HAND, RIGHT CLINICAL INFORMATION: Pain? COMPARISON: Previous x-ray September 2021 TECHNIQUE: PA, lateral, and oblique views of the right hand. FINDINGS: No acute fracture or dislocation. There is severe arthritis at the wrist with joint space narrowing and osteophyte formation. There may be disruption of the proximal carpal row and proximal migration of the capitate. There is extensive periarticular soft tissue ossification. There are degenerative changes at the [employer] joints with osteophyte formation. There may be soft tissue swelling of the third and fourth fingers. XR/XR hand RT min 3V IMPRESSION: Severe arthritis at the wrist. Question soft tissue swelling third and fourth fingers. Dictated By: Candace Finn MD Signed By: Electronically signed by Candace Finn MD 02/08/22 0838 Discharge Plan Discharge Clinical Impression: Arthritis Patient Disposition: Home, Self-Care Instructions: Osteoarthritis (ED) Additional Instructions: Follow up with your primary care provider and your arthritis specialist. Return to the emergency department immediately if your symptoms worsen or if you develop any dizziness, shortness of breath, difficulty breathing, chest pain, blurry vision, loss of vision, nausea, vomiting, abdominal pain, fever, chills, back pain, or any other complaints. Jemma un seguimiento con palencia proveedor de atenci?n primaria y palencia especialista en artritis. Regrese al departamento de emergencias de inmediato si eugene s?ntomas empeoran o si presenta mareos, falta de aire, dificultad para respirar, dolor de pecho, visi?n borrosa, p?rdida de la visi?n, n?useas, v?mitos, dolor abdominal, fiebre, escalofr?os, dolor de espalda o cualquier otras quejas. Prescriptions: New hydrocodone-acetaminophen 5-325 mg tablet 1 tab PO DAILY PRN (Reason: pain) Qty: 7 0RF Rx Instructions: Partial Fill upon patient request. methylprednisolone [Methylpred DP] 4 mg tablets,dose pack 4 mg PO DAILY Qty: 21 0RF No Action (DME) cane Device See Rx Instructions .Route Qty: 1 0RF Rx Instructions: As directed oxycodone 5 mg tablet 5 mg PO TID PRN (Reason: Pain) Kevzara 200 mg/1.14 mL pen injector 200 mg subcut Q2W Qty: 2.28 2RF phenytoin sodium extended [Dilantin Extended] 100 mg Capsule 200 mg PO TID phenobarbital 97.2 mg tablet 97.2 mg PO BEDTIME cyclobenzaprine 10 mg tablet 10 mg PO Q8H Qty: 20 0RF gabapentin 400 mg Capsule 400 mg PO BID naloxone [Narcan] 4 mg/actuation [place],Non-Aerosol 1 spray INTRANASAL Q2M Rx Instructions: spray 1 dose into ONE nostril; alternate nostrils w each dose until help arrives ketotifen fumarate 0.025 % (0.035 %) drops 1 drp ophthalmic (eye) BID polyvinyl alcohol [Artificial Tears (polyvin alc)] 1.4 % drops 1 drp ophthalmic (eye) TID-QID sildenafil 25 mg tablet 1 tab PO DAILY PRN (Reason: Sexual Activity) Eliquis DVT-PE Treat 30D Start 5 mg (74 tabs) tablets,dose pack 5 mg PO BID Qty: 73 0RF Rx Instructions: Take 10 mg twice daily for 7 days followed by 5 mg twice daily. patient received first dose 10mg in the ED. pantoprazole 40 mg tablet,delayed release (DR/EC) 40 mg PO DAILY Referrals: Shi Lancaster MD [Primary Care Provider] - Interventions: ED Discharge Assessment Last Done: 02/08/22 09:54 Discharge Date/Time: 02/08/22 09:54 Print Language: Yakut
[2022-02-08 08:55] VITALS: BP 144/96; PULSE 88; RESP 20; TEMP 36.6; O2SAT 96
[2022-02-08] MEDS: HYDROcodone Bit/Acetam 5/325 TABLET 1 TAB PO (09:38)
== END 2022-02-08 09:54 | disposition home or self-care (01) ==
PROVIDERS: Emergency Provider Emergency Medicine Emergency Medical Services; PCP Internal Medicine
DX: M19.031 Primary osteoarthritis, right wrist (principal); M25.731 Osteophyte, right wrist; M25.531 Pain in right wrist; I10 Essential (primary) hypertension; Z86.718 Personal history of other venous thrombosis and embolism; Z79.01 Long term (current) use of anticoagulants
CPT/HCPCS: 73130; 99283; 99284

== ENCOUNTER 2022-02-11 08:46 | Emergency (ER) | payer MEDICAID, SELFPAY ==
[2022-02-11 09:00] VITALS: BP 162/98; PULSE 87; O2SAT 97
[2022-02-11 09:02] VITALS: BP 153/91; PULSE 100; RESP 16; TEMP 36.6; O2SAT 96; BMI 44.3
--- NOTE | 2022-02-11 10:28 | ED_ITS ---
HPI - Extremity Problem General Chief complaint: Extremity Problem Stated complaint: R HAND PAIN X'S 3 DAYS,NO INJURY PER EMS Time Seen by Provider: 02/11/22 10:27 History of Present Illness HPI Narrative: 46-year-old male with a past medical history of seropositive rheumatoid arthritis and osteoarthritis presents to the emergency department with pain in bilateral hand/wrist and swelling in right hand/wrist. He states he was seen on 02/08 for the same symptoms was prescribed [place] and methylprednisolone and recommended to follow-up with his social service assistant and primary care provider for further treatment and management of his arthritis flare. He states he did not fill his methylprednisolone as he is allergic to prednisone and did not feel comfortable taking this medication. The at this time he has not been in touch with his care providers regarding his arthritic flare. He states he has been taking the prescribed pain medication with little effect in discomfort. He denies any fever, chills, changes in vision, changes in his baseline gait. MD Complaint: extremity swelling Onset (ago): day(s) Pain Consistency: constant Location: left, right and upper extremity Severity scale (1-10): 7 Quality: constant Radiation: none Relieving factors: nothing Exacerbating factors: palpation Associated symptoms: denies other symptoms Context: other (history of rheumatoid arthritis) Related Data Home Medications Medication Instructions Recorded Confirmed phenytoin sodium extended 100 mg 200 mg PO TID 02/07/20 01/23/22 capsule (Dilantin Extended) phenobarbital 97.2 mg tablet 97.2 mg PO BEDTIME 03/28/21 01/23/22 oxycodone 5 mg tablet 5 mg PO TID PRN Pain 06/11/21 01/23/22 pantoprazole 40 mg tablet,delayed 40 mg PO DAILY 10/24/21 01/23/22 release gabapentin 400 mg capsule 400 mg PO BID 01/17/22 01/23/22 ketotifen fumarate 0.025 % (0.035 1 drp ophthalmic (eye) BID 01/17/22 01/23/22 %) eye drops naloxone 4 mg/actuation nasal 1 spray intranasal Q2M 01/17/22 01/23/22 spray (Narcan) polyvinyl alcohol 1.4 % eye drops 1 drp ophthalmic (eye) TID-QID 01/17/22 01/23/22 (Artificial Tears (polyvinyl alcohol)) sildenafil 25 mg tablet 1 tab PO DAILY PRN Sexual Activity 01/17/22 01/23/22 Previous Rx's Medication Instructions Recorded cyclobenzaprine 10 mg tablet 10 mg PO Q8H #20 tabs 07/26/20 cane #1 ea 02/01/21 apixaban 5 mg (74 tabs) tablets in 5 mg PO BID #73 ea 12/31/21 a dose pack (Eliquis DVT-PE Treat 30D Start) sarilumab 200 mg/1.14 mL 200 mg (1.14 mL) subcut Q2W #2.28 01/11/22 subcutaneous pen injector (Kevzara) mL hydrocodone 5 mg-acetaminophen 325 1 tab PO DAILY PRN pain #7 tabs 02/08/22 mg tablet methylprednisolone 4 mg tablets in 4 mg PO DAILY #21 ea 02/08/22 a dose pack (Methylpred DP) acetaminophen 500 mg tablet 1,000 mg PO Q8-10H PRN pain #30 02/11/22 (Tylenol Extra Strength) tabs diclofenac sodium 1 % topical gel 4 g topical QID #100 grams 02/11/22 (Voltaren Arthritis Pain) Allergies Allergy/AdvReac Type Severity Reaction Status Date / Time Sulfa (Sulfonamide Allergy Severe DIFFICULTY Verified 01/23/22 10:31 Antibiotics) BREATHING, [SULFA (SULFONAMIDE RASH, ANTIBIOTICS)] rash, hypertension prednisone Allergy Palpitation Verified 01/23/22 10:31 s Review of Systems Review of Systems: Yes all other systems are reviewed and are negative Constitutional: Constitutional: Reports no additional constitutional complaints, Denies chills, Denies fever(s) and Denies headache(s) Eyes: Eyes: Reports no additional eye complaints and Denies change in vision ENT: Reports system reviewed and no additional complaints, except as documented, Reports Normal hearing present, Denies headache(s), Denies nasal congestion, Denies nasal discharge and Denies sore throat Cardiovascular: Cardiovascular: Reports no additional cardiovascular complaints, Denies chest pain, Reports pedal edema and Denies dyspnea Respiratory: Respiratory: Reports no additional respiratory complaints and Denies dyspnea Gastrointestinal: Gastrointestinal: Reports no additional gastrointestinal complaints, Denies abdominal pain, Denies change in stool character, Denies constipation, Denies diarrhea, Denies nausea and Denies vomiting Genitourinary: Genitourinary: Reports no additional male genitourinary complaints Musculoskeletal: Musculoskeletal: Reports no additional musculoskeletal complaints, Reports abnormal gait, Denies numbness and Denies tingling Integumentary/Breasts: Skin/Breast: Reports system reviewed and no additional complaints, except as docu Neurologic: Reports system reviewed and no additional complaints, except as documented, Reports Normal hearing present, Reports abnormal gait, Denies h eadache(s), Denies numbness and Denies tingling Psychiatric: Psychiatric: Reports no additional psychiatric complaints PMFSH Past Medical History Attestation statement: The following information was validated with the patient. Source: old records reviewed and obtained from family Medical History History of epilepsy HTN (hypertension) Lumbar radiculopathy Rheumatoid arthritis Rheumatoid arthritis Sleep apnea Tachycardia Surgical History History of spinal surgery Hx of bariatric surgery Hx of exploratory laparotomy Family History Family History Maternal Uncle Colon cancer Paternal Aunt Breast cancer Social History Social History Household Members: Spouse Housing: Apartment Are you a primary personal care service provider to a significant other at home: Yes ( disabled) Do you presently have visiting nurse or other home services: No Alcohol intake: never Patient Tobacco Use Status: Never used Tobacco e-Cigarette/Vaping Use: Never Used Advance Directives: No Advance Directives Information Provided: Yes service: No Current occupational status: disabled Physical Exam Vital Signs: Vital Signs: Last Vital Signs Temp 97.8 F 02/11/22 09:02 Pulse 100 02/11/22 09:02 Resp 16 02/11/22 09:02 BP 153/91 H 02/11/22 09:02 Pulse Ox 96 02/11/22 09:02 O2 Del Method 02/11/22 09:02 BMI result Body Mass Index 44.3 Const: General: cooperative, alert and awake Nutritional Appearance: well nourished Orientation/consciousness: patient oriented x3 Limitations: language barrier HEENT: Head: Yes normal to inspection, Yes normocephalic and Yes atraumatic Ears: hearing grossly normal bilaterally and external ears normal General nose exam: Normal external nose present and Normal nares present Face and sinus: Yes normal facial exam and Yes face symmetric Eyes: General: appearance normal, both eyes and all related structures Visual Rivera: normal visual rivera by confrontation Alignment and Position: alignment normal Periorbital: periorbital findings normal Eyelids: Yes eyelids normal Conjunctivae: conjunctivae normal Sclerae: sclerae normal Pupils: Equal, round and reactive pupils present EOM: EOMs intact bilaterally Neck: Neck: Yes normal visual inspection and Yes full ROM Chest: Chest palpation & inspection: normal inspection of the chest Resp: Effort & Inspection: normal respiratory effort, able to speak in complete sentences, no audible wheezes, no cough, not labored and symmetric chest movement Auscultation: clear to auscultation bilaterally Cardio: Rate: regular rate Rhythm: regular rhythm Back/Spine/Pelvis: Cervical Spine: cervical ROM normal Skin: General skin exam: no rashes or lesions noted, no ecchymosis and no erythema Neuro: General: patient oriented x3 Cranial nerves: Yes Equal, round and reactive pupils present and Yes Normal hearing present Cognition (Neuro): normal cognition Gait exam (Neuro): Normal gait present Motor exam (neuro): 5/5 motor strength present throughout Extrem: General: Yes full ROM, Yes capillary refill normal and Yes pedal edema Right upper extremity: full ROM, normal capillary refill and edema Left upper extremity: full ROM and normal capillary refill Right lower extremity: full ROM and edema Left lower extremity: full ROM and edema MDM - Extremity (Nontraumatic) MDM Narrative Medical decision making narrative: 46-year-old Mauritian-speaking male patient presenting to the emergency department with bilateral hand pain and swelling in the right hand. He was previously seen on 02/08/2022 for same symptoms with recommendation to follow-up with his social service assistant and primary care provider. He has not seen his providers as of yet, however; he has put out a call to the rheumatology office to discuss further management of his arthritic flare. He is unable to take PO NSAIDS as part of his treatment plan as he is taking Eliquis for known DVTs. He is also unable to take PO steroids due to an allergy. Diclofenac cream ordered for topical treatment of arthritic flare. History and physical exam and plan discussed with patient with no unanswered questions. Pt educated to use [id number] Tylenol as directed on packaging for pain relief. Pt has an active Oxycodone prescription for pain related to his arthritis and educated to use Oxycodone prescription as indicated for discomfort. Educated to present to the emergency department with fever, chills, worsening pain that is not controlled by pain medication, or any other emergent symptoms it may concern you. Recommended to follow-up with his social service assistant and primary care provider for further management and care. Discharge Plan Discharge Clinical Impression: Flare of rheumatoid arthritis Patient Disposition: Home, Self-Care Additional Instructions: Diclofenac cream ordered for topical treatment of arthritic flare. Educated to use [id number] Tylenol as directed on packaging for pain relief. Educated to present to the emergency department with fever, chills, worsening pain that is not controlled by pain medication, or any other emergent symptoms it may concern you. Recommended to follow-up with his social service assistant and primary care provider for further management and care. Prescriptions: New diclofenac sodium [Voltaren Arthritis Pain] 1 % gel 4 g topical QID Qty: 100 0RF Rx Instructions: apply to single knee, ankle, foot; for foot includes sole/toes/top of foot acetaminophen [Tylenol Extra Strength] 500 mg tablet 1,000 mg PO Q8-10H PRN (Reason: pain) Qty: 30 0RF No Action (DME) cane Device See Rx Instructions .Route Qty: 1 0RF Rx Instructions: As directed oxycodone 5 mg tablet 5 mg PO TID PRN (Reason: Pain) Kevzara 200 mg/1.14 mL pen injector 200 mg subcut Q2W Qty: 2.28 2RF phenytoin sodium extended [Dilantin Extended] 100 mg Capsule 200 mg PO TID phenobarbital 97.2 mg tablet 97.2 mg PO BEDTIME cyclobenzaprine 10 mg tablet 10 mg PO Q8H Qty: 20 0RF gabapentin 400 mg Capsule 400 mg PO BID naloxone [Narcan] 4 mg/actuation [place],Non-Aerosol 1 spray INTRANASAL Q2M Rx Instructions: spray 1 dose into ONE nostril; alternate nostrils w each dose until help arrives ketotifen fumarate 0.025 % (0.035 %) drops 1 drp ophthalmic (eye) BID polyvinyl alcohol [Artificial Tears (polyvin alc)] 1.4 % drops 1 drp ophthalmic (eye) TID-QID sildenafil 25 mg tablet 1 tab PO DAILY PRN (Reason: Sexual Activity) [place] DVT-PE Treat 30D Start 5 mg (74 tabs) tablets,dose pack 5 mg PO BID Qty: 73 0RF Rx Instructions: Take 10 mg twice daily for 7 days followed by 5 mg twice daily. patient received first dose 10mg in the ED. hydrocodone-acetaminophen 5-325 mg tablet 1 tab PO DAILY PRN (Reason: pain) Qty: 7 0RF Rx Instructions: Partial Fill upon patient request. methylprednisolone [Methylpred DP] 4 mg tablets,dose pack 4 mg PO DAILY Qty: 21 0RF pantoprazole 40 mg tablet,delayed release (DR/EC) 40 mg PO DAILY Referrals: Shi Lancaster MD [Primary Care Provider] - Print Language: Mauritian
== END 2022-02-11 12:01 | disposition home or self-care (01) ==
PROVIDERS: Emergency Provider Emergency Medicine; PCP Internal Medicine
DX: M05.9 Rheumatoid arthritis with rheumatoid factor, unspecified (principal); R22.31 Localized swelling, mass and lump, right upper limb; M79.642 Pain in left hand; M79.641 Pain in right hand; Z86.718 Personal history of other venous thrombosis and embolism; Z79.01 Long term (current) use of anticoagulants
CPT/HCPCS: 99283

== ENCOUNTER 2022-02-25 13:15 | Outpatient (REF) | payer MEDICAID, SELFPAY | END 2022-02-25 13:16 | disposition home or self-care (01) | LOC: HO.LAB 13:15 | PROVIDERS: Visit Provider Nurse Practitioner Family | DX: M70.22 Olecranon bursitis, left elbow (principal); M17.0 Bilateral primary osteoarthritis of knee; M05.9 Rheumatoid arthritis with rheumatoid factor, unspecified; M25.50 Pain in unspecified joint; I82.401 Acute embolism and thrombosis of unspecified deep veins of right lower extremity; Z79.899 Other long term (current) drug therapy | CPT/HCPCS: 87070; 87073; 87205; 99212 ==

== ENCOUNTER 2022-02-28 12:32 | Outpatient (REF) | payer MEDICAID, SELFPAY | END 2022-02-28 12:33 | disposition home or self-care (01) | LOC: HO.LAB 12:32 | PROVIDERS: Visit Provider Nurse Practitioner Family | DX: M70.22 Olecranon bursitis, left elbow (principal); M1A.9XX1 Chronic gout, unspecified, with tophus (tophi) | CPT/HCPCS: 87070; 87073; 87205; 99212 ==

== ENCOUNTER 2022-03-02 20:15 | Inpatient (IN) | payer MEDICAID, SELFPAY ==
--- NOTE | ~2022-03-02 | XR_ITS ---
EXAMINATION: XR ELBOW, LEFT CLINICAL INFORMATION: Elbow pain and swelling COMPARISON: Left elbow radiographs 09/17/2015 TECHNIQUE: AP, lateral, and oblique views of the left elbow. FINDINGS: Once again seen is a supracondylar process at the anteromedial aspect of the distal humeral metadiaphysis, a normal variant which is typically of no clinical significance. There is an effusion at the elbow joint, probably smaller when compared to the prior. Significant moderate degenerative changes are present at the elbow joint with deformity of the radial head again noted probably secondary to old trauma.. A 0.5 cm loose body is once again seen in the anterior aspect of the joint. XR/XR elbow LT min 3V IMPRESSION: No acute fracture is seen. Chronic changes as described above with loose body and joint effusion.
[2022-03-02 20:29] VITALS: BP 140/86; RESP 18; TEMP 36.8; O2SAT 96; BMI 44.3
--- NOTE | 2022-03-02 20:29 | ED.EXTPRO ---
HPI - Extremity Problem General Chief complaint: General Medical <BRADY Tineo - Last Filed: 03/02/22 20:35> Stated complaint: L ELBOW PAIN/SWELLING <BRADY Tineo - Last Filed: 03/02/22 20:35> Time Seen by Provider: 03/03/22 03:57 <BRADY Tineo - Last Filed: 03/02/22 20:35> Source: patient <Claudia Dobbs MD - Last Filed: 03/03/22 07:53> Mode of arrival: ambulatory <Claudia Dobbs MD - Last Filed: 03/03/22 07:53> Limitations: no limitations <Claudia Dobbs MD - Last Filed: 03/03/22 07:53> History of Present Illness HPI Narrative: Patient comes to the emergency room complaining of swelling in the left elbow. Patient states that patient had pre developing in the elbow, his surface water technician in aspirate. Patient was discharged home from the surface water technician's office. Then, patient states that the fluid collection started getting more prominent. Prior to arriving to the ER, patient had a lot of fluid draining from his elbow. Patient also states that he was informed by his surface water technician that there may be an infection in the elbow. Patient was started on Keflex and he has been on it for several days. Patient denies fever chills. Patient complaining that the size of his elbow is increasing. <Claudia Dobbs MD - Last Filed: 03/03/22 07:53> Related Data Home medications: Home Medications Medication Instructions Recorded Confirmed phenytoin sodium extended 100 mg 200 mg PO TID 02/07/20 01/23/22 capsule (Dilantin Extended) phenobarbital 97.2 mg tablet 97.2 mg PO BEDTIME 03/28/21 01/23/22 oxycodone 5 mg tablet 5 mg PO TID PRN Pain 06/11/21 01/23/22 pantoprazole 40 mg tablet,delayed 40 mg PO DAILY 10/24/21 01/23/22 release gabapentin 400 mg capsule 400 mg PO BID 01/17/22 01/23/22 ketotifen fumarate 0.025 % (0.035 1 drp ophthalmic (eye) BID 01/17/22 01/23/22 %) eye drops naloxone 4 mg/actuation nasal 1 spray intranasal Q2M 01/17/22 01/23/22 spray (Narcan) polyvinyl alcohol 1.4 % eye drops 1 drp ophthalmic (eye) TID-QID 01/17/22 01/23/22 (Artificial Tears (polyvinyl alcohol)) sildenafil 25 mg tablet 1 tab PO DAILY PRN Sexual Activity 01/17/22 01/23/22 apixaban 5 mg tablet (Eliquis) 5 mg PO BID 02/25/22 Previous Rx's Medication Instructions Recorded cyclobenzaprine 10 mg tablet 10 mg PO Q8H #20 tabs 07/26/20 cane #1 ea 02/01/21 sarilumab 200 mg/1.14 mL 200 mg (1.14 mL) subcut Q2W #2.28 01/11/22 subcutaneous pen injector (Kuldipzara) mL hydrocodone 5 mg-acetaminophen 325 1 tab PO DAILY PRN pain #7 tabs 02/08/22 mg tablet acetaminophen 500 mg tablet 1,000 mg PO Q8-10H PRN pain #30 02/11/22 (Tylenol Extra Strength) tabs diclofenac sodium 1 % topical gel 4 g topical QID #100 grams 02/11/22 (Voltaren Arthritis Pain) allopurinol 100 mg tablet See Rx Instructions .Route 02/25/22 .COMPLEX #60 tabs colchicine 0.6 mg tablet 0.6 mg PO DAILY #30 tabs 02/25/22 prednisone 10 mg tablet See Rx Instructions .Route 02/25/22 .COMPLEX #18 tabs cephalexin 500 mg capsule 500 mg PO TID #21 caps 02/28/22 <BRADY Tineo - Last Filed: 03/02/22 20:35> Allergies/Adverse reactions: Allergies Allergy/AdvReac Type Severity Reaction Status Date / Time Sulfa (Sulfonamide Allergy Severe DIFFICULTY Verified 02/28/22 17:34 Antibiotics) BREATHING, [SULFA (SULFONAMIDE RASH, ANTIBIOTICS)] rash, hypertension prednisone Allergy Palpitation Verified 02/28/22 17:34 s <BRADY Tineo - Last Filed: 03/02/22 20:35> Review of Systems Review of Systems: Constitutional : No Weight loss, No Fever, No Chills, No Night Sweats, No Fatigue, No Malaise ENT/Mouth : No Hearing loss, No Ear Pain, No Nasal Congestion, No Sinus Pain, No Hoarseness, No sore throat, No Rhinorrhea, No Swallowing Difficulty Eyes: No Eye Pain, No Swelling, No Redness, No Foreign Body, No Discharge, No Vision Changes Cardiovascular : No Chest Pain, No SOB, No Dyspnea on Exertion, No Orthopnea, No Edema, No Palpitations Respiratory : No Cough, No Sputum, No Wheezing, No Smoke Exposure, No Dyspnea Gastrointestinal : No Nausea, No Vomiting, No Diarrhea, No Constipation, No abdominal Pain, No Hematochezia, No Melena Genitourinary : no irregular bleeding, No Dysuria, No Urinary Frequency, No Hematuria, No Urinary Incontinence, No Urgency, No Flank Pain, No Urinary Flow Changes, No Hesitancy Musculoskeletal : Joint fluid in the left elbow No Myalgias, No Joint Swelling Skin : No Skin Lesions, No rash Neuro : No Weakness, No Numbness, No Paresthesias, No Loss of Consciousness, No Dizziness, No Headache Psych : No Anxiety/Panic, No Depression, No SI/HI/AH/VH, No Social Issues, Heme/Lymph: No Bruising, No Bleeding,No Lymphadenopathy Endocrine : No Polyuria, No Polydipsia, No Temperature Intolerance <Claudia Dobbs MD - Last Filed: 03/03/22 07:53> [facility] Past Medical History Medical History: Medical History History of epilepsy HTN (hypertension) Lumbar radiculopathy Rheumatoid arthritis Rheumatoid arthritis Sleep apnea Tachycardia <BRADY Tineo - Last Filed: 03/02/22 20:35> Surgical History: Surgical History History of spinal surgery Hx of bariatric surgery Hx of exploratory laparotomy <BRADY Tineo - Last Filed: 03/02/22 20:35> Family History Family History: Family History Maternal Uncle Colon cancer Paternal Aunt Breast cancer <BRADY Tineo - Last Filed: 03/02/22 20:35> Social History Social History: Social History Household Members: Spouse Housing: Apartment 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 ( disabled) Do you presently have visiting nurse or other home services: No Alcohol intake: never Patient Tobacco Use Status: Never used Tobacco e-Cigarette/Vaping Use: Never Used Advance Directives: No Advance Directives Information Provided: No service: No Current occupational status: disabled <BRADY Tineo - Last Filed: 03/02/22 20:35> Physical Exam Vital Signs: Vital Signs: Last Vital Signs Temp 98.5 F 03/03/22 06:23 Pulse 89 03/03/22 06:23 Resp 18 03/03/22 06:23 BP 145/94 H 03/03/22 06:23 Pulse Ox 96 03/03/22 06:23 O2 Del Method 03/03/22 06:23 BMI result Body Mass Index 44.3 <BRADY Tineo - Last Filed: 03/02/22 20:35> Vital Signs: Last Vital Signs Temp 98.5 F 03/03/22 06:23 Pulse 89 03/03/22 06:23 Resp 18 03/03/22 06:23 BP 145/94 H 03/03/22 06:23 Pulse Ox 96 03/03/22 06:23 O2 Del Method 03/03/22 06:23 BMI result Body Mass Index 44.3 <Claudia Dobbs MD - Last Filed: 03/03/22 07:53> Const: Other: Appearance: Alert. Oriented X3. No acute distress. Eyes: Pupils equal, round and reactive to light. ENT: Pharynx normal. Neck: Normal inspection. Neck supple. No lymph nodes noted. No crepitus CVS: Normal heart rate and rhythm. Pulses normal. Normal S1 and S2 Respiratory: No respiratory distress. Breath sounds normal. No Wheezing. No rales Abdomen: Soft and nontender. No rigidity. No distention. Skin: Skin warm and dry. Normal skin color. Normal skin turgor. Extremities: No lower extremity edema. Large effusion on the left elbow Neuro: Oriented X 3. No motor deficit. No sensory deficit. Moving all extremities. No slurred speech. CN 2 through 12 grossly intact Psych: calm, cooperative, normal affect <Clauida Dobbs MD - Last Filed: 03/03/22 07:53> Course Course Course Narrative: E-20:15PM - 46 year old assigned male at with a history of RA presenting to the emergency department today c c/o left elbow pain/swelling/redness with purulent drainage that started a few days ago. Reports that he was seen by his surface water technician this week and had a arthrocentesis of the left elbow. Then he called them back 2 days later and told him to come back and he took more fluid and told him to go home although he reports today prior to arrival that when he bends his elbow a whole bunch of purulent discharge from the site. Reports the pain is radiating to his shoulder. Reports decreased range of motion and pain with range of motion. Plan: Labs, blood cultures, lactic acid and left elbow x-ray. Patient will be sent to the ER for further evaluation treatment <BRADY Tineo - Last Filed: 03/02/22 20:35> [facility]-20:15PM - 46 year old assigned male at with a history of RA presenting to the emergency department today c c/o left elbow pain/swelling/redness with purulent drainage that started a few days ago. Reports that he was seen by his surface water technician this week and had a arthrocentesis of the left elbow. Then he called them back 2 days later and told him to come back and he took more fluid and told him to go home although he reports today prior to arrival that when he bends his elbow a whole bunch of purulent discharge from the site. Reports the pain is radiating to his shoulder. Reports decreased range of motion and pain with range of motion. Plan: Labs, blood cultures, lactic acid and left elbow x-ray. Patient will be sent to the ER for further evaluation treatment Patient's labs within normal limits, white blood cell count within normal limits, lactic acid within normal limits, ESR and CRP normal. X-ray shows normal bony structure, there is an effusion present. I discussed with the patient that given the history that he gave me we should go ahead and do an arthrocentesis and send the fluid to the lab. Patient agrees with plan. I&D was done, over 100 cc of purulent material was drained. Labs pending. Patient was started on vancomycin and Zosyn. The pigs has been made aware of the patient, patient to be admitted. I discussed the patient with Dr. Post, patient will be admitted. At this time, I think that the pus is coming from the intra-articular space itself. <Claudia Dobbs MD - Last Filed: 03/03/22 07:53> Medical Decision Making Lab Data Result Diagrams: : 03/02/22 21:45 03/02/22 21:45 <BRADY Tineo - Last Filed: 03/02/22 20:35> Labs: Lab Results 03/02/22 03/02/22 03/02/22 Range/Units 21:45 21:45 21:45 WBC 8.9 (4.8-10.8) X10*3/uL RBC 4.72 (4.60-5.80) X10*6/uL Hgb 15.5 (14.0-18.0) g/dl Hct 43.7 (42.0-52.0) % MCV 92.6 (80.0-98.0) fL MCH 32.8 (27.0-33.0) pg MCHC 35.5 (31.0-36.0) g/dl RDW 12.1 (11.0-16.0) % Plt Count 254 D (160-400) X10*3/uL MPV 10.1 (9.4-12.4) fL Immature Gran % (Auto) 0.2 (0.0-0.4) % Neut % (Auto) 67.0 (45-73) % Lymph % (Auto) 21.8 (20-40) % Stanly % (Auto) 9.7 (2-11) % Eos % (Auto) 1.1 (0-4) % Baso % (Auto) 0.2 (0-2) % Lymph # (Auto) 1.9 (1.2-4.9) X10*3/uL Stanly # (Auto) 0.9 (0.1-1.2) X10*3/uL Eos # (Auto) 0.1 (0.0-0.4) X10*3/uL Baso # (Auto) 0.0 (0.0-0.2) X10*3/uL Abs Immat Gran (auto) 0.02 (0.00-0.03) X10*3/uL Absolute Neuts (auto) 6.0 (2.0-8.3) x10*3/uL Absolute Nucleated RBC 0.000 (0.0-0.012) X10*3/uL Nucleated RBC % (auto) 0.0 (0.0-0.2) /100WBC ESR 7 (0-15) MM/HR PT (10.0-13.1) SEC INR (0.9-1.1) Sodium 141 (135-145) mmol/L Potassium 4.2 (3.3-5.1) mmol/L Chloride 102 (96-108) mmol/L Carbon Dioxide 28 (22-29) mmol/L Anion Gap 15 (12-20) BUN 18 H D (9-16) mg/dL Creatinine 1.03 (0.5-1.4) mg/dL Estim Creat Clear Calc 122.7 Estimated GFR > 60 Random Glucose 95 (60-115) mg/dL Lactic Acid (0.5-2.0) mmol/L Calcium 10.5 H D (8.4-10.2) mg/dL Magnesium 1.9 (1.6-2.6) mg/dL Total Bilirubin 0.3 (0.0-1.0) mg/dL AST 22 (5-37) U/L ALT 34 (0-40) U/L Alkaline Phosphatase 97 (39-117) U/L C-Reactive Protein 0.35 (< or = 0.50) mg/dL Total Protein 8.1 H (6.5-8.0) g/dL Albumin 4.9 (3.5-5.0) g/dL 03/02/22 03/02/22 Range/Units 21:45 21:45 WBC (4.8-10.8) X10*3/uL RBC (4.60-5.80) X10*6/uL Hgb (14.0-18.0) g/dl Hct (42.0-52.0) % MCV (80.0-98.0) fL MCH (27.0-33.0) pg MCHC (31.0-36.0) g/dl RDW (11.0-16.0) % Plt Count (160-400) X10*3/uL MPV (9.4-12.4) fL Immature Gran % (Auto) (0.0-0.4) % Neut % (Auto) (45-73) % Lymph % (Auto) (20-40) % Stanly % (Auto) (2-11) % Eos % (Auto) (0-4) % Baso % (Auto) (0-2) % Lymph # (Auto) (1.2-4.9) X10*3/uL Stanly # (Auto) (0.1-1.2) X10*3/uL Eos # (Auto) (0.0-0.4) X10*3/uL Baso # (Auto) (0.0-0.2) X10*3/uL Abs Immat Gran (auto) (0.00-0.03) X10*3/uL Absolute Neuts (auto) (2.0-8.3) x10*3/uL Absolute Nucleated RBC (0.0-0.012) X10*3/uL Nucleated RBC % (auto) (0.0-0.2) /100WBC ESR (0-15) MM/HR PT 12.0 (10.0-13.1) SEC INR 1.0 (0.9-1.1) Sodium (135-145) mmol/L Potassium (3.3-5.1) mmol/L Chloride (96-108) mmol/L Carbon Dioxide (22-29) mmol/L Anion Gap (12-20) BUN (9-16) mg/dL Creatinine (0.5-1.4) mg/dL Estim Creat Clear Calc Estimated GFR Random Glucose (60-115) mg/dL Lactic Acid 1.4 (0.5-2.0) mmol/L Calcium (8.4-10.2) mg/dL Magnesium (1.6-2.6) mg/dL Total Bilirubin (0.0-1.0) mg/dL AST (5-37) U/L ALT (0-40) U/L Alkaline Phosphatase (39-117) U/L C-Reactive Protein (< or = 0.50) mg/dL Total Protein (6.5-8.0) g/dL Albumin (3.5-5.0) g/dL <BRADY Tineo - Last Filed: 03/02/22 20:35> Lab Results 03/02/22 03/02/22 03/02/22 Range/Units 21:45 21:45 21:45 WBC 8.9 (4.8-10.8) X10*3/uL RBC 4.72 (4.60-5.80) X10*6/uL Hgb 15.5 (14.0-18.0) g/dl Hct 43.7 (42.0-52.0) % MCV 92.6 (80.0-98.0) fL MCH 32.8 (27.0-33.0) pg MCHC 35.5 (31.0-36.0) g/dl RDW 12.1 (11.0-16.0) % Plt Count 254 D (160-400) X10*3/uL MPV 10.1 (9.4-12.4) fL Immature Gran % (Auto) 0.2 (0.0-0.4) % Neut % (Auto) 67.0 (45-73) % Lymph % (Auto) 21.8 (20-40) % Stanly % (Auto) 9.7 (2-11) % Eos % (Auto) 1.1 (0-4) % Baso % (Auto) 0.2 (0-2) % Lymph # (Auto) 1.9 (1.2-4.9) X10*3/uL Stanly # (Auto) 0.9 (0.1-1.2) X10*3/uL Eos # (Auto) 0.1 (0.0-0.4) X10*3/uL Baso # (Auto) 0.0 (0.0-0.2) X10*3/uL Abs Immat Gran (auto) 0.02 (0.00-0.03) X10*3/uL Absolute Neuts (auto) 6.0 (2.0-8.3) x10*3/uL Absolute Nucleated RBC 0.000 (0.0-0.012) X10*3/uL Nucleated RBC % (auto) 0.0 (0.0-0.2) /100WBC ESR 7 (0-15) MM/HR PT (10.0-13.1) SEC INR (0.9-1.1) Sodium 141 (135-145) mmol/L Potassium 4.2 (3.3-5.1) mmol/L Chloride 102 (96-108) mmol/L Carbon Dioxide 28 (22-29) mmol/L Anion Gap 15 (12-20) BUN 18 H D (9-16) mg/dL Creatinine 1.03 (0.5-1.4) mg/dL Estim Creat Clear Calc 122.7 Estimated GFR > 60 Random Glucose 95 (60-115) mg/dL Lactic Acid (0.5-2.0) mmol/L Calcium 10.5 H D (8.4-10.2) mg/dL Magnesium 1.9 (1.6-2.6) mg/dL Total Bilirubin 0.3 (0.0-1.0) mg/dL AST 22 (5-37) U/L ALT 34 (0-40) U/L Alkaline Phosphatase 97 (39-117) U/L C-Reactive Protein 0.35 (< or = 0.50) mg/dL Total Protein 8.1 H (6.5-8.0) g/dL Albumin 4.9 (3.5-5.0) g/dL 03/02/22 03/02/22 Range/Units 21:45 21:45 WBC (4.8-10.8) X10*3/uL RBC (4.60-5.80) X10*6/uL Hgb (14.0-18.0) g/dl Hct (42.0-52.0) % MCV (80.0-98.0) fL MCH (27.0-33.0) pg MCHC (31.0-36.0) g/dl RDW (11.0-16.0) % Plt Count (160-400) X10*3/uL MPV (9.4-12.4) fL Immature Gran % (Auto) (0.0-0.4) % Neut % (Auto) (45-73) % Lymph % (Auto) (20-40) % Stanly % (Auto) (2-11) % Eos % (Auto) (0-4) % Baso % (Auto) (0-2) % Lymph # (Auto) (1.2-4.9) X10*3/uL Stanly # (Auto) (0.1-1.2) X10*3/uL Eos # (Auto) (0.0-0.4) X10*3/uL Baso # (Auto) (0.0-0.2) X10*3/uL Abs Immat Gran (auto) (0.00-0.03) X10*3/uL Absolute Neuts (auto) (2.0-8.3) x10*3/uL Absolute Nucleated RBC (0.0-0.012) X10*3/uL Nucleated RBC % (auto) (0.0-0.2) /100WBC ESR (0-15) MM/HR PT 12.0 (10.0-13.1) SEC INR 1.0 (0.9-1.1) Sodium (135-145) mmol/L Potassium (3.3-5.1) mmol/L Chloride (96-108) mmol/L Carbon Dioxide (22-29) mmol/L Anion Gap (12-20) BUN (9-16) mg/dL Creatinine (0.5-1.4) mg/dL Estim Creat Clear Calc Estimated GFR Random Glucose (60-115) mg/dL Lactic Acid 1.4 (0.5-2.0) mmol/L Calcium (8.4-10.2) mg/dL Magnesium (1.6-2.6) mg/dL Total Bilirubin (0.0-1.0) mg/dL AST (5-37) U/L ALT (0-40) U/L Alkaline Phosphatase (39-117) U/L C-Reactive Protein (< or = 0.50) mg/dL Total Protein (6.5-8.0) g/dL Albumin (3.5-5.0) g/dL <Claudia Dobbs MD - Last Filed: 03/03/22 07:53> Procedures Abscess I/D Site: upper extremity (Ago) <Claudia Dobbs MD - Last Filed: 03/03/22 07:53> Side (if applicable): left <Claudia Dobbs MD - Last Filed: 03/03/22 07:53> Local Anesthetic: lidocaine 1% <Claudia Dobbs MD - Last Filed: 03/03/22 07:53> Amount of anesthesia used (mL): 15 <Claudia Dobbs MD - Last Filed: 03/03/22 07:53> Technique: needle aspiration and incised with blade <Claudia Dobbs MD - Last Filed: 1218/22 07:53> Amount of fluid expressed (mL): 100 <Claudia Dobbs MD - Last Filed: 03/03/22 07:53> Packing used?: iodoform <Claudia Dobbs MD - Last Filed: 03/03/22 07:53> Discharge Plan Discharge Clinical Impression: Cellulitis and abscess of upper extremity <BRADY Tineo - Last Filed: 03/02/22 20:35> Patient Disposition: Admitted As Inpatient <BRADY Tineo - Last Filed: 03/02/22 20:35>
[2022-03-02 22:06] LABS: Lactic Acid 1.4 mmol/L (0.5-2.0)
[2022-03-02 22:20] LABS: Alanine Aminotransferase 34 U/L (0-40); Albumin Level 4.9 g/dL (3.5-5.0); Alkaline Phosphatase 97 U/L (39-117); Anion Gap 15 (12-20); Aspartate Amino Transferase 22 U/L (5-37); Blood Urea Nitrogen 18 mg/dL (9-16); C Reactive Protein 0.35 mg/dL (< or = 0.50); Calcium 10.5 mg/dL (8.4-10.2); Carbon Dioxide 28 mmol/L (22-29); Chloride 102 mmol/L (96-108); Creatinine Clr Calc Pharmacy 122.7; Estimated Glomerular Filt Rate > 60; Glucose Random 95 mg/dL (60-115); Magnesium 1.9 mg/dL (1.6-2.6); Potassium 4.2 mmol/L (3.3-5.1); Sodium 141 mmol/L (135-145); Total Protein 8.1 g/dL (6.5-8.0)
[2022-03-02 22:58] LABS: Erythrocyte Sedimentation Rate 7 MM/HR (0-15)
[2022-03-02 23:11] LABS: MANUAL DIFF FLAG NO
[2022-03-02 23:13] LABS: Basophils Percent Auto 0.2 % (0-2); Eosinophils Absolute Auto 0.1 X10*3/uL (0.0-0.4); Eosinophils Percent Auto 1.1 % (0-4); Hematocrit 43.7 % (42.0-52.0); Hemoglobin 15.5 g/dl (14.0-18.0); Imm Gran Abs Auto 0.02 X10*3/uL (0.00-0.03); Imm Gran Pct Auto 0.2 % (0.0-0.4); Lymphocytes Absolute Auto 1.9 X10*3/uL (1.2-4.9); Lymphocytes Percent Auto 21.8 % (20-40); Mean Corpuscular HGB Conc 35.5 g/dl (31.0-36.0); Mean Corpuscular Hemoglobin 32.8 pg (27.0-33.0); Mean Corpuscular Volume 92.6 fL (80.0-98.0); Mean Platelet Volume 10.1 fL (9.4-12.4); Monocytes Absolute Auto 0.9 X10*3/uL (0.1-1.2); Monocytes Percent Auto 9.7 % (2-11); Platelet Count 254 X10*3/uL (160-400); Red Blood Count 4.72 X10*6/uL (4.60-5.80); Red Cell Distribution Width 12.1 % (11.0-16.0); White Blood Count 8.9 X10*3/uL (4.8-10.8)
[2022-03-02 23:36] LABS: Bilirubin Total 0.3 mg/dL (0.0-1.0)
[2022-03-03 04:36] VITALS: BP 123/89; PULSE 96; RESP 18; TEMP 36.6; O2SAT 97
[2022-03-03 06:23] VITALS: BP 145/94; PULSE 89; RESP 18; TEMP 36.9; O2SAT 96
[2022-03-03 08:20] VITALS: BP 132/85; PULSE 91; O2SAT 98
[2022-03-03 08:35] LABS: COVID-19 Test Negative (Negative); IDNOW Serial# 16C4AD1C
[2022-03-03] MEDS: Piperacillin Sodium/Tazobactam 3.375 GM in 0.9 % Sodium Chloride 50 ML IV ×3 (08:37→20:54)
[2022-03-03] MEDS: oxyCODONE HCl Immed Release 5 MG TABLET PO (08:38)
[2022-03-03 08:50] LABS: Lactic Acid 1.7 mmol/L (0.5-2.0)
[2022-03-03 09:45] LABS: BF Shift QC OK YES; Lymphocytes Synovial Fluid 3 %; Man Diluent Bkgrd OK YES; Neutrophils Synovial Fluid 97 %
[2022-03-03 09:55] VITALS: BP 127/84; PULSE 91; O2SAT 98
--- NOTE | 2022-03-03 10:22 | PM.IMHP ---
History of Present Illness Date of Service: 03/03/22 Attending physician on admission: Harrison Post Chief Complaint: joint infection 46-year-old male with past medical history of rheumatoid arthritis, epilepsy, is KRZYSZTOF on CPAP,right lower ext dvt(12/31/21)-came to the emergency room for elbow swelling/draining in the left side. patient had swellin developing in the elbow, his senior product consultant in aspirate.? Patient was discharged home from the senior product consultant's office after takin joint fluid.?Patient also states that he was informed by his senior product consultant that there may be an infection in the elbow.? Patient was started on Keflex and he has been on it for several day,and Then patient states that the fluid collection started getting more prominent.? Prior to arriving to the ER, patient had a lot of fluid draining from his elbow.? as per Ed physician-had i&d -fluid sen for analysis and requested admission for left elbow cellulitis/bursitis. Denies any new complaint of chest pain or shortness of breath or abdominal pain or fever or chills or nausea or vomiting Denies any cough Denies any weakness or numbness. WBC in the joint fluid is around 50 K range, Has pain in the arm and swelling-elbow. No WBC count or fever Mild hypercalcemia elbow LT min 3V IMPRESSION: No acute fracture is seen. Chronic changes as described above with loose body and joint effusion In the ED received vanco Zosyn since failed outpatient antibiotic therapy-recommended to admit patient for IV antibiotics for elbow cellulitis. Review of Systems Review of Systems: as above . [facility] Medical History History of epilepsy HTN (hypertension) Lumbar radiculopathy Rheumatoid arthritis Rheumatoid arthritis Sleep apnea Tachycardia Family History Maternal Uncle Colon cancer Paternal Aunt Breast cancer Surgical History History of spinal surgery Hx of bariatric surgery Hx of exploratory laparotomy Social History Household Members: Spouse Housing: Apartment Are you a primary healthcare manager to a significant other at home: Yes ( disabled) Do you presently have visiting nurse or other home services: No Alcohol intake: never Patient Tobacco Use Status: Never used Tobacco Smoked in Last 30 Days: No e-Cigarette/Vaping Use: Never Used Advance Directives: No Advance Directives Information Provided: No service: No Current occupational status: disabled Meds Allergies Allergy/AdvReac Type Severity Reaction Status Date / Time Sulfa (Sulfonamide Allergy Severe DIFFICULTY Verified 02/28/22 17:34 Antibiotics) BREATHING, [SULFA (SULFONAMIDE RASH, ANTIBIOTICS)] rash, hypertension prednisone Allergy Palpitation Verified 02/28/22 17:34 s Active Medications: Current Medications Piperacillin Sod/Tazobactam (Sod 3.375 gm/ Sodium Chloride) 50 mls @ 100 mls/hr IV Q6H [facility] Last Admin: 03/03/22 08:38 Dose: Not Given Pharmacy Consult (Consult Rx Vancomycin Dosing) 1 each MISCELLANE DAILY PRN PRN Reason: Consult order Pharmacy Consult (Consult Rx Perform Med Rec) 1 each MISCELLANE ONCE PRN PRN Reason: Consult order Sodium Chloride (0.9 % Sodium Chloride Flush 3 Ml Syringe) 3 ml IVFLUSH QSHIFT [facility] Home Medications Medication Instructions Recorded Confirmed Last Taken Type phenytoin sodium extended 100 mg 200 mg PO TID 02/07/20 01/23/22 02/07/20 History capsule (Dilantin Extended) 0800 phenobarbital 97.2 mg tablet 97.2 mg PO BEDTIME 03/28/21 01/23/22 Unknown History oxycodone 5 mg tablet 5 mg PO TID PRN Pain 06/11/21 01/23/22 Unknown History pantoprazole 40 mg tablet,delayed 40 mg PO DAILY 10/24/21 01/23/22 Unknown History release gabapentin 400 mg capsule 400 mg PO BID 01/17/22 01/23/22 Unknown History ketotifen fumarate 0.025 % (0.035 1 drp ophthalmic (eye) BID 01/17/22 01/23/22 Unknown History %) eye drops naloxone 4 mg/actuation nasal 1 spray intranasal Q2M 01/17/22 01/23/22 Unknown History spray (Narcan) polyvinyl alcohol 1.4 % eye drops 1 drp ophthalmic (eye) TID-QID 01/17/22 01/23/22 Unknown History (Artificial Tears (polyvinyl alcohol)) sildenafil 25 mg tablet 1 tab PO DAILY PRN Sexual Activity 01/17/22 01/23/22 Unknown History apixaban 5 mg tablet (Eliquis) 5 mg PO BID 02/25/22 Unknown History Physical Exam Vital Signs and Narrative: Vital Signs: Last Vital Signs Temp 98.5 F 03/03/22 06:23 Pulse 91 03/03/22 09:55 Resp 18 03/03/22 06:23 BP 127/84 03/03/22 09:55 Pulse Ox 98 03/03/22 09:55 O2 Del Method 03/03/22 09:55 BMI result Body Mass Index 44.3 Appearance: Alert.? Oriented X3.? not in distress.? Eyes: Pupils equal, round and reactive to light.? Sclera nonicteric.? ENT: Pharynx normal.? Moist mucous membranes. cvs: rrr, [id number] , no murmur res: clear to auscultation ,no rhonchii or wheezing abd: no rebound or guarding ,nt, bs present. ext pulses present , no cyanosis ,left arm wrapped -elbow area/olecrenon area swellin,no visible drainge(s/p I&d as per ed). neuro: axo3 , nonfocal. Results Labs CBC and Chem 7: 03/02/22 21:45 03/02/22 21:45 Labs: Laboratory Results - last 24 hr 03/02/22 03/02/22 03/02/22 21:45 21:45 21:45 MCV 92.6 MCH 32.8 MCHC 35.5 RDW 12.1 Plt Count 254 D MPV 10.1 Immature Gran % (Auto) 0.2 Neut % (Auto) 67.0 Lymph % (Auto) 21.8 [place] % (Auto) 9.7 Eos % (Auto) 1.1 Baso % (Auto) 0.2 Lymph # (Auto) 1.9 [place] # (Auto) 0.9 Eos # (Auto) 0.1 Baso # (Auto) 0.0 Abs Immat Gran (auto) 0.02 Absolute Neuts (auto) 6.0 Absolute Nucleated RBC 0.000 Nucleated RBC % (auto) 0.0 ESR 7 PT INR Anion Gap 15 Estim Creat Clear Calc 122.7 Estimated GFR > 60 Random Glucose 95 Lactic Acid Calcium 10.5 H D Magnesium 1.9 Total Bilirubin 0.3 AST 22 ALT 34 Alkaline Phosphatase 97 C-Reactive Protein 0.35 Total Protein 8.1 H Albumin 4.9 Synovial Source Synovial WBC Synovial RBC Synovial Neutrophils Synovial Lymphocytes COVID-19 (CLEMENTINE) COVID-19 Clin Com 03/02/22 03/02/22 03/03/22 21:45 21:45 07:44 MCV MCH MCHC RDW Plt Count MPV Immature Gran % (Auto) Neut % (Auto) Lymph % (Auto) [place] % (Auto) Eos % (Auto) Baso % (Auto) Lymph # (Auto) [place] # (Auto) Eos # (Auto) Baso # (Auto) Abs Immat Gran (auto) Absolute Neuts (auto) Absolute Nucleated RBC Nucleated RBC % (auto) ESR PT 12.0 INR 1.0 Anion Gap Estim Creat Clear Calc Estimated GFR Random Glucose Lactic Acid 1.4 Calcium Magnesium Total Bilirubin AST ALT Alkaline Phosphatase C-Reactive Protein Total Protein Albumin Synovial Source L elbow Synovial WBC 49.465 Synovial RBC 0.150 Synovial Neutrophils 97 Synovial Lymphocytes 3 COVID-19 (CLEMENTNIE) COVID-19 Clin Com 03/03/22 03/03/22 08:06 08:25 MCV MCH MCHC RDW Plt Count MPV Immature Gran % (Auto) Neut % (Auto) Lymph % (Auto) [place] % (Auto) Eos % (Auto) Baso % (Auto) Lymph # (Auto) [place] # (Auto) Eos # (Auto) Baso # (Auto) Abs Immat Gran (auto) Absolute Neuts (auto) Absolute Nucleated RBC Nucleated RBC % (auto) ESR PT INR Anion Gap Estim Creat Clear Calc Estimated GFR Random Glucose Lactic Acid 1.7 Calcium Magnesium Total Bilirubin AST ALT Alkaline Phosphatase C-Reactive Protein Total Protein Albumin Synovial Source Synovial WBC Synovial RBC Synovial Neutrophils Synovial Lymphocytes COVID-19 (CLEMENTINE) Negative COVID-19 Clin Com See Note Imaging Radiologist's Impressions: Impressions Elbow X-Ray 03/02/22 20:45 IMPRESSION: No acute fracture is seen. Chronic changes as described above with loose body and joint effusion. Assessment and Plan (1) Cellulitis and abscess of upper extremity: Status: Acute Plan 1. Cellulitis/abcess -elbow vs infection of elbow joint synovial fluid -seems 49k wbc, blood culture and synovial culture pending does not meet sepsis criteria ,failed outpatient keflex. Continue antibiotics-vanco and Zosyn day1 ortho eval 2.Epilepsy: med reconcillation pending 3.KRZYSZTOF: Continue albuterol,cpap. 4. dvt : med reconcillation pending 5. morbid obesity : Encouraged to lose weight. 6. hx of R.A: seems stable ,med reconcillation still pending Above management discussed with the patient in detail length, he understand and in agreement with the above plan, time spent 70 minute, patient full code, patient considering cellulitis and abscess more to respond to outpatient therapy will need 2 midnight stays for IV antibiotics and ortho eval. Time Spent With Patient Time: Total time managing care of this patient today ____ minutes. Quality Stroke Does the patient have a stroke diagnosis?: No VTE Prior VTE?: No VTE Risk Level:: Medical - moderate - high VTE Device Contraindication: N/A - Device Ordered VTE Drug Contraindication: N/A - Med Ordered
--- NOTE | 2022-03-03 11:25 | PHA.MEDREC ---
Pharmacy Consult ? Medication Reconciliation Pharmacy has completed the medication reconciliation. Utilized [employer] correspondence [employer] services to perform med rec.
[2022-03-03] MEDS: Lactated Ringers 1,000 ML 80 ML IVCONT ×2 (11:45→20:58)
[2022-03-03 12:19] LABS: Glucose Synovial Fluid 53 MG/DL; Total Protein Synovial Fluid 3.6 GM/DL
[2022-03-03] MEDS: allopurinoL 100 MG TABLET PO (14:46)
[2022-03-03] MEDS: Cyclobenzaprine HCl 10 MG TABLET PO ×2 (14:46→20:55)
[2022-03-03] MEDS: predniSONE 10 MG TABLET 30 MG PO (14:46)
[2022-03-03 15:53] VITALS: BP 156/93; PULSE 96; RESP 20; TEMP 36.8; O2SAT 98
[2022-03-03] MEDS: Acetaminophen 325 MG TABLET 975 MG PO (16:01)
[2022-03-03 16:24] LABS: Creatinine Clr Calc Pharmacy 156.1; Estimated Glomerular Filt Rate > 60
--- NOTE | 2022-03-03 17:27 | PC.NURSE ---
New admit from ED with left elbow cellulitis/bursitis. Patient is alert and oriented. C/o left elbow pain, medicated per MAR with good effect. VSS, afebrile, no acute resp. distress noted. Treatment plan: IV ABT. Will continue to monitor and treat per pklan of care.
[2022-03-03 20:00] VITALS: BP 134/96; PULSE 109; RESP 20; TEMP 37; O2SAT 97
[2022-03-03] MEDS: Apixaban 5 MG TABLET PO (20:55)
[2022-03-03] MEDS: Gabapentin 100 MG CAPSULE 200 MG PO (20:55)
[2022-03-03] MEDS: Phenytoin Sodium Extended 100 MG CAPSULE 300 MG PO (20:55)
[2022-03-03] MEDS: 0.9 % Sodium Chloride Flush 3 ML SYRINGE IVFLUSH (20:57)
[2022-03-03] MEDS: vancomycin HCL 1,500 MG in 0.9 % Sodium Chloride 500 ML 333.33 MG IV (20:58)
[2022-03-04 03:06] VITALS: BP 125/89; PULSE 88; RESP 20; TEMP 35.9; O2SAT 96
[2022-03-04] MEDS: Piperacillin Sodium/Tazobactam 3.375 GM in 0.9 % Sodium Chloride 50 ML IV ×4 (03:08→20:50)
[2022-03-04 03:13] VITALS: BP 110/56; PULSE 85; RESP 20; TEMP 36.6; O2SAT 90
[2022-03-04] MEDS: Cyclobenzaprine HCl 10 MG TABLET PO ×3 (06:11→22:40)
[2022-03-04] MEDS: Omeprazole 20 MG CAPSULE.DR 40 MG PO (06:12)
[2022-03-04 06:43] LABS: Anion Gap 17 (12-20); Blood Urea Nitrogen 12 mg/dL (9-16); Calcium 9.7 mg/dL (8.4-10.2); Carbon Dioxide 21 mmol/L (22-29); Chloride 105 mmol/L (96-108); Estimated Glomerular Filt Rate > 60; Glucose Random 84 mg/dL (60-115); Potassium 4.7 mmol/L (3.3-5.1); Sodium 138 mmol/L (135-145)
[2022-03-04 08:00] VITALS: BP 160/95; PULSE 95; RESP 19; TEMP 37.1; O2SAT 96
[2022-03-04] MEDS: 0.9 % Sodium Chloride Flush 3 ML SYRINGE IVFLUSH ×2 (09:02→15:32)
[2022-03-04] MEDS: Gabapentin 100 MG CAPSULE 200 MG PO ×2 (09:03→20:41)
[2022-03-04] MEDS: Apixaban 5 MG TABLET PO ×2 (09:03→20:40)
[2022-03-04] MEDS: predniSONE 10 MG TABLET 20 MG PO (09:03)
[2022-03-04] MEDS: allopurinoL 100 MG TABLET 200 MG PO (09:04)
[2022-03-04] MEDS: Colchicine 0.6 MG TABLET PO (09:04)
[2022-03-04] MEDS: Lactated Ringers 1,000 ML 80 ML IVCONT (09:56)
[2022-03-04] MEDS: vancomycin HCL 1,500 MG in 0.9 % Sodium Chloride 500 ML 333.33 MG IV (10:06)
--- NOTE | 2022-03-04 11:34 | P.PNIM_ITS ---
Subjective Subjective Date of Service: 03/04/22 Interval History: elbow cellulitis /abcess Review of Systems still has arm pain,swellin Denies any chest pain or shortness of breath or abdominal pain or fever or chills Physical Exam Vital Signs: Vital Signs: Last Vital Signs Temp 98.8 F 03/04/22 08:00 Pulse 95 03/04/22 08:00 Resp 19 03/04/22 08:00 BP 160/95 H 03/04/22 08:00 Pulse Ox 96 03/04/22 08:00 O2 Del Method 03/04/22 08:00 O2 Flow Rate 97 03/04/22 03:06 BMI result Body Mass Index 44.3 ?Appearance: Alert.? Oriented X3.? not in distress.? cvs: rrr, [id number] , no murmur res: clear to auscultation ,no rhonchii or wheezing abd: no rebound or guarding ,nt, bs present. ext pulses present , no cyanosis ,left arm wrapped -elbow area/olecrenon area swellin,no visible drainge(s/p I&d as per ed). neuro: axo3 , nonfocal. Objective Data Active Medications Acetaminophen (Acetaminophen 325 Mg Tablet) 975 mg PO Q8H PRN PRN Reason: pain Last Admin: 03/03/22 16:01 Dose: 975 mg Documented By: MITRA Allopurinol (Allopurinol 100 Mg Tablet) 200 mg PO DAILY [facility] Last Admin: 03/04/22 09:04 Dose: 200 mg Documented By: ZAHIRA Apixaban (Apixaban 5 Mg Tablet) 5 mg PO BID [facility] Last Admin: 03/04/22 09:03 Dose: 5 mg Documented By: ZAHIRA Colchicine (Colchicine 0.6 Mg Tablet) 0.6 mg PO DAILY [facility] Last Admin: 03/04/22 09:04 Dose: 0.6 mg Documented By: ZAHIRA Cyclobenzaprine HCl (Cyclobenzaprine Hcl 10 Mg Tablet) 10 mg PO Q8H [facility] Last Admin: 03/04/22 06:11 Dose: 10 mg Documented By: JUAN MIGUEL Gabapentin (Gabapentin 100 Mg Capsule) 200 mg PO BID [facility] Last Admin: 03/04/22 09:03 Dose: 200 mg Documented By: ZAHIRA Piperacillin Sod/Tazobactam (Sod 3.375 gm/ Sodium Chloride) 50 mls @ 100 mls/hr IV Q6H [facility] Last Infusion: 03/04/22 10:07 Dose: 0 mls/hr Documented By: ZAHIRA Lactated Ringer's (Lr) 1,000 mls @ 80 mls/hr IVCONT .[id number] [facility] Last Admin: 03/04/22 09:56 Dose: 80 mls/hr Documented By: ZAHIRA Vancomycin HCl 1,500 mg/ (Sodium Chloride) 500 mls @ 333.333 mls/hr IV Q12H [facility] Last Admin: 03/04/22 10:06 Dose: 333.33 mls/hr Documented By: ZAHIRA Non-Formulary Medication (Sarilumab [Kevzara]) 200 mg SUBCUT Q2W [facility] Omeprazole (Omeprazole 20 Mg Capsule.Dr) 40 mg PO DAILY@0630 [facility] Last Admin: 03/04/22 06:12 Dose: 40 mg Documented By: JUAN MIGUEL Pharmacy Consult (Consult Rx Vancomycin Dosing) 1 each MISCELLANE DAILY PRN PRN Reason: Consult order Pharmacy Consult (Consult Rx Perform Med Rec) 1 each MISCELLANE ONCE PRN PRN Reason: Consult order Pharmacy Consult (Consult Rx Vancomycin Dosing) 1 each MISCELLANE DAILY PRN PRN Reason: Consult order Phenobarbital (Phenobarbital 100 Mg Tablet) 200 mg PO BEDTIME [facility] Last Admin: 03/03/22 20:55 Dose: 200 mg Documented By: JUAN MIGUEL Phenytoin Sodium (Phenytoin Sodium Extended 100 Mg Capsule) 300 mg PO BEDTIME [facility] Last Admin: 03/03/22 20:55 Dose: 300 mg Documented By: JUAN MIGUEL Prednisone (Prednisone 10 Mg Tablet) 20 mg PO DAILY [facility]; Taper Stop: 03/10/22 08:59 Last Admin: 03/04/22 09:03 Dose: 20 mg Documented By: ZAHIRA Sodium Chloride (0.9 % Sodium Chloride Flush 3 Ml Syringe) 3 ml IVFLUSH QSHIFT [facility] Last Admin: 03/04/22 09:02 Dose: 3 ml Documented By: ZHAIRA Labs CBC & Chem 7: 03/02/22 21:45 03/04/22 05:23 Labs: Laboratory Results - last 24 hr 03/03/22 03/03/2203/04/22 07:44 15:49 05:23 Anion Gap 17 Estim Creat Clear Calc 156.1 158.0 Estimated GFR > 60 > 60 Random Glucose 84 Calcium 9.7 D Synovial Glucose 53 Synovial Total Protein 3.6 03/04/22 05:23 Anion Gap Estim Creat Clear Calc Cancelled Estimated GFR Cancelled Random Glucose Calcium Synovial Glucose Synovial Total Protein Microbiology Microbiology Results: Microbiology 03/03/22 08:13 Blood Culture - Preliminary Blood - Venous No growth after 24 hours. 03/03/22 08:13 Blood Culture - Preliminary Blood - Venous No growth after 24 hours. 03/03/22 07:44 Gram Stain - Final Elbow Aspirate - Aspirate Anaerobic Culture - Preliminary No growth to date. Gross Specimen Examination - Final Fluid Crystals - Final Joint Fluid Culture - Preliminary No growth to date. 03/03/22 04:21 Blood Culture - Preliminary Blood - Venous No growth after 24 hours. 03/02/22 21:45 Blood Culture - Preliminary Blood - Venous No growth after 24 hours. Assessment and Plan (1) Cellulitis and abscess of upper extremity: Status: Acute (2) Right leg DVT: Status: Acute Plan 1. Cellulitis/abcess -elbow vs infection of elbow joint synovial fluid -seems 49k wbc, blood culture and synovial culture and blood pending does not meet sepsis criteria ,failed outpatient keflex. Continue antibiotics-vanco and Zosyn day2,added iv morphine ortho eval 2.Epilepsy: continue home Phenytion/phenobarb. 3.KRZYSZTOF: Continue albuterol,cpap. 4. dvt : continue eliquis. 5. morbid obesity :? Encouraged to lose weight. 6. hx of? R.A:? seems stable ,continue home meds. ongoing inpatient need:Cellulitis/abcess -elbow vs infection of elbow joint-need iv antibiotics,cultures blood and synovial pendin,ortho eval. Time Spent With Patient Time: Total time managing care of this patient today ____ minutes. Quality Stroke Does the patient have a stroke diagnosis?: No VTE Prior VTE?: No VTE Risk Level:: Medical - moderate - high VTE Device Contraindication: N/A - Device Ordered VTE Drug Contraindication: N/A - Med Ordered
--- NOTE | 2022-03-04 15:00 | PC.NURSE ---
Spoke to Renuka from Pharmacy about order for one time dose Phenytoin Sodium ER 200 mg due at 1449 and scheduled dose of Phenytoin Sodium ER 200 mg scheduled at 1600. Pharmacist said okay to give one time dose and scheduled dose. Spoke to Dr. Post, was told to give one time dose at 1449 and give scheduled dose at 1800.
[2022-03-04] MEDS: Phenytoin Sodium Extended 100 MG CAPSULE 200 MG PO ×2 (15:03→17:37)
[2022-03-04 15:27] VITALS: BP 156/96; PULSE 102; RESP 20; TEMP 36.6; O2SAT 94
--- NOTE | 2022-03-04 16:00 | P.CONOP_ITS ---
History of Present Illness HPI Consult date: 03/04/22 Chief complaint: arm cellulitis-failed outpatient rx Narrative: Mr. Pelletier is a 46 yo male who initiall presented to the outpatient rheumatology department on 02/25/22 for left elbow pain and swelling. The olecranon bursa was aspirated in the office and noted to have a gummy, thick white substance consistent with tophus . He was started on Allopurinol. On 02/28/22 the patient was again seen in the outpatient rheum office for continues pain and swelling over the left olecranon bursa. Again the bursa was aspirated and sent for cultu re. Culture resulted in 4+ polys and therefor was started on Keflex 500mg TID x 7 days. The patient continued to have pain and swelling even after starting oral abx and presented to the ED on 03/02/22. He was admitted to the medicine service for IV abx. Orthopedics was consulted yesterday for further evaluation. Review of Systems Review of Systems: Yes Unobtainable due to mental status PMFSH Past Medical History Medical History History of epilepsy HTN (hypertension) Lumbar radiculopathy Rheumatoid arthritis Rheumatoid arthritis Sleep apnea Tachycardia Family History Family History Maternal Uncle Colon cancer Paternal Aunt Breast cancer Surgical History Surgical History History of spinal surgery Hx of bariatric surgery Hx of exploratory laparotomy Social History Social History Household Members: Spouse Housing: Apartment Are you a primary care associate to a significant other at home: Yes ( disabled) Do you presently have visiting nurse or other home services: No Alcohol intake: never Patient Tobacco Use Status: Never used Tobacco Smoked in Last 30 Days: No e-Cigarette/Vaping Use: Never Used Patient Interested in Nicotine Replacement: No Patient Given Instructions on How to Stop Smoking: No Use of substances other than those prescribed or required for medical reasons: No Currently Displaying Signs/Symptoms of Drug Intoxication Withdrawal: No Any prior treatment program specific to substance use: No Have you been hit, kicked, punched, or otherwise hurt by someone within the past year? If so, by whom?: No Do you feel safe in your current relationship?: Yes Is there a partner from a previous relationship who is making you feel unsafe now?: No Are you made to feel afraid or neglected: No Advance Directives: No Advance Directives Information Provided: No Advance Directives on File: No Do you have thoughts of harming others: None Do you have a plan to hurt others: No Plan Recently lost weight without trying: No Nutrition Risks: No Nutritional Risk service: No Current occupational status: disabled Meds Allergies Allergy/AdvReac Type Severity Reaction Status Date / Time Sulfa (Sulfonamide Allergy Severe DIFFICULTY Verified 02/28/22 17:34 Antibiotics) BREATHING, [SULFA (SULFONAMIDE RASH, ANTIBIOTICS)] rash, hypertension prednisone Allergy Palpitation Verified 02/28/22 17:34 s Active Medications: Current Medications Acetaminophen (Acetaminophen 325 Mg Tablet) 975 mg PO Q8H PRN PRN Reason: pain Last Admin: 03/04/22 20:46 Dose: 975 mg Allopurinol (Allopurinol 100 Mg Tablet) 200 mg PO DAILY [facility] Last Admin: 03/04/22 09:04 Dose: 200 mg Apixaban (Apixaban 5 Mg Tablet) 5 mg PO BID [facility] Last Admin: 03/04/22 20:40 Dose: 5 mg Colchicine (Colchicine 0.6 Mg Tablet) 0.6 mg PO DAILY [facility] Last Admin: 03/04/22 09:04 Dose: 0.6 mg Cyclobenzaprine HCl (Cyclobenzaprine Hcl 10 Mg Tablet) 10 mg PO Q8H [facility] Last Admin: 03/05/22 06:15 Dose: 10 mg Docusate Sodium (Docusate Sodium 100 Mg Capsule) 100 mg PO BEDTIME [facility] Last Admin: 03/04/22 20:41 Dose: 100 mg Gabapentin (Gabapentin 100 Mg Capsule) 200 mg PO BID [facility] Last Admin: 03/04/22 20:41 Dose: 200 mg Piperacillin Sod/Tazobactam (Sod 3.375 gm/ Sodium Chloride) 50 mls @ 100 mls/hr IV Q6H [facility] Last Infusion: 03/05/22 03:52 Dose: Infused Lactated Ringer's (Lr) 1,000 mls @ 80 mls/hr IVCONT .[id number] [facility] Last Admin: 03/05/22 02:46 Dose: 80 mls/hr Vancomycin HCl 1,250 mg/ (Sodium Chloride) 250 mls @ 166.667 mls/hr IV Q12H [facility] Last Infusion: 03/05/22 00:26 Dose: Infused Morphine Sulfate (Morphine Sulfate 2 Mg/Ml Cartridge) 1 mg IVPUSH Q4H PRN; Protocol PRN Reason: Pain, Mild (Pain Scale 1-3) Non-Formulary Medication (Sarilumab [Kuldipzara]) 200 mg SUBCUT Q2W [facility] Omeprazole (Omeprazole 20 Mg Capsule.) 40 mg PO DAILY@0630 [facility] Last Admin: 03/05/22 06:16 Dose: 40 mg Pharmacy Consult (Consult Rx Vancomycin Dosing) 1 each MISCELLANE DAILY PRN PRN Reason: Consult order Pharmacy Consult (Consult Rx Perform Med Rec) 1 each MISCELLANE ONCE PRN PRN Reason: Consult order Pharmacy Consult (Consult Rx Vancomycin Dosing) 1 each MISCELLANE DAILY PRN PRN Reason: Consult order Phenobarbital (Phenobarbital 100 Mg Tablet) 200 mg PO BEDTIME [facility] Last Admin: 03/04/22 20:41 Dose: 200 mg Phenytoin Sodium (Phenytoin Sodium Extended 100 Mg Capsule) 300 mg PO BEDTIME [facility] Last Admin: 03/04/22 20:41 Dose: 300 mg Phenytoin Sodium (Phenytoin Sodium Extended 100 Mg Capsule) 200 mg PO BID@0900,1600 [facility] Last Admin: 03/04/22 17:37 Dose: 200 mg Prednisone (Prednisone 10 Mg Tablet) 20 mg PO DAILY [facility]; Taper Stop: 03/10/22 08:59 Last Admin: 03/04/22 09:03 Dose: 20 mg Senna (Sennosides 8.6 Mg Tablet) 17.2 mg PO DAILY [facility] Sodium Chloride (0.9 % Sodium Chloride Flush 3 Ml Syringe) 3 ml IVFLUSH QSHIFT [facility] Last Admin: 03/05/22 01:07 Dose: Not Given Home Medications Medication Instructions Recorded Confirmed Last Taken Type phenytoin sodium extended 100 mg 200 mg PO BID@0900,1600 02/07/20 03/03/22 03/02/22 History capsule (Dilantin Extended) phenobarbital 97.2 mg tablet 194.4 mg PO BEDTIME 03/28/21 03/03/22 03/01/22 History oxycodone 5 mg tablet 5 mg PO TID PRN Pain 06/11/21 03/03/22 Unknown History pantoprazole 40 mg tablet,delayed 40 mg PO DAILY@0630 10/24/21 03/03/22 03/02/22 History release apixaban 5 mg tablet (Eliquis) 5 mg PO BID 02/25/22 03/03/22 03/02/22 History acetaminophen 500 mg tablet 1,000 mg PO Q8H PRN pain 03/03/22 03/03/22 Unknown History (Tylenol Extra Strength) diclofenac sodium 1 % topical gel 4 g topical QID PRN arthritis pain 03/03/22 03/03/22 Unknown History (Voltaren Arthritis Pain) gabapentin 100 mg capsule 2 cap PO BID 03/03/22 03/03/22 03/02/22 History naproxen 500 mg tablet 1 tab PO BID 03/03/22 03/03/22 03/02/22 History phenytoin sodium extended 100 mg 300 mg PO BEDTIME 03/03/22 03/03/22 03/01/22 History capsule Physical Exam Vital Signs: Vital Signs: Last Vital Signs Temp 98.5 F 03/05/22 07:20 Pulse 85 03/05/22 07:20 Resp 19 03/05/22 07:20 BP 152/94 H 03/05/22 07:20 Pulse Ox 96 03/05/22 07:20 O2 Del Method 03/05/22 07:20 O2 Flow Rate 97 03/04/22 03:06 BMI result Body Mass Index 44.3 Const: General: cooperative, healthy appearing and no acute distress Resp: Effort & Inspection: normal respiratory effort and able to speak in complete sentences Cardio: Rate: regular rate Peripheral pulses: Peripheral pulses 2+ throughout GI: Palpation (GI): Soft to palpation Skin: Lesions: no lesions Rashes: no rashes Extrem: Other: left elbow olecranon bursa is edematous. Drainage visible and consistent of tophi and creamy discharge. Patient is able to demonstrate full elbow flexion, extension, pronation and supination with mild discomfort. Sensation intact. Radial pulse intact. Results Labs Result Diagrams: 03/05/22 06:23 03/05/22 06:23 Labs: Abnormal lab results 03/05/22 Range/Units 06:23 RBC 4.21 L (4.60-5.80) X10*6/uL Hgb 13.7 L (14.0-18.0) g/dl Hct 39.4 L (42.0-52.0) % H & H 03/02/22 03/05/22 Range/Units 21:45 06:23 Hgb 15.5 13.7 L (14.0-18.0) g/dl Hct 43.7 39.4 L (42.0-52.0) % Coagulation 03/02/22 Range/Units 21:45 INR 1.0 (0.9-1.1) All other labs normal. Assessment and Plan (1) Cellulitis and abscess of upper extremity: Status: Acute Continue IV abx No evidence of septic joint at this time Warm soaks Gentle ROM Dressing changes as needed (2) Chronic tophaceous gout: Status: Acute (3) Olecranon bursitis, left elbow: Status: Acute Time Spent With Patient Time: Total time managing care of this patient today ____ minutes. Procedures Date of Service Date of Service: 03/04/22
[2022-03-04 18:57] VITALS: BP 117/55; PULSE 100; RESP 20; TEMP 36.7; O2SAT 98
[2022-03-04] MEDS: Phenytoin Sodium Extended 100 MG CAPSULE 300 MG PO (20:41)
[2022-03-04] MEDS: Docusate Sodium 100 MG CAPSULE PO (20:41)
[2022-03-04] MEDS: Acetaminophen 325 MG TABLET 975 MG PO (20:46)
[2022-03-04 20:53] LABS: Vancomycin Trough 13.4 mcg/mL (10.0-20.0)
[2022-03-04] MEDS: vancomycin HCL 1,250 MG in 0.9 % Sodium Chloride 250 ML 166.67 MG IV (22:41)
[2022-03-05] MEDS: Lactated Ringers 1,000 ML 80 ML IVCONT (02:46)
[2022-03-05 03:14] VITALS: BP 128/81; PULSE 88; RESP 18; TEMP 36.1; O2SAT 95
[2022-03-05] MEDS: Piperacillin Sodium/Tazobactam 3.375 GM in 0.9 % Sodium Chloride 50 ML IV ×2 (03:14→08:12)
[2022-03-05] MEDS: Cyclobenzaprine HCl 10 MG TABLET PO ×3 (06:15→21:13)
[2022-03-05] MEDS: Omeprazole 20 MG CAPSULE.DR 40 MG PO (06:16)
[2022-03-05 06:40] LABS: Hematocrit 39.4 % (42.0-52.0); Hemoglobin 13.7 g/dl (14.0-18.0); Mean Corpuscular HGB Conc 34.8 g/dl (31.0-36.0); Mean Corpuscular Hemoglobin 32.5 pg (27.0-33.0); Mean Corpuscular Volume 93.6 fL (80.0-98.0); Mean Platelet Volume 9.5 fL (9.4-12.4); Platelet Count 199 X10*3/uL (160-400); Red Blood Count 4.21 X10*6/uL (4.60-5.80); Red Cell Distribution Width 12.1 % (11.0-16.0); White Blood Count 6.5 X10*3/uL (4.8-10.8)
[2022-03-05 07:17] LABS: Blood Urea Nitrogen 15 mg/dL (9-16); Calcium 9.4 mg/dL (8.4-10.2); Creatinine Clr Calc Pharmacy 152.3; Estimated Glomerular Filt Rate > 60; Glucose Random 88 mg/dL (60-115)
[2022-03-05 07:20] VITALS: BP 152/94; PULSE 85; RESP 19; TEMP 36.9; O2SAT 96
[2022-03-05 07:34] LABS: Anion Gap 12 (12-20); Carbon Dioxide 27 mmol/L (22-29); Chloride 104 mmol/L (96-108); Potassium 3.9 mmol/L (3.3-5.1); Sodium 139 mmol/L (135-145)
[2022-03-05] MEDS: Sennosides 8.6 MG TABLET 17.2 MG PO (08:06)
[2022-03-05] MEDS: Gabapentin 100 MG CAPSULE 200 MG PO ×2 (08:06→20:41)
[2022-03-05] MEDS: Phenytoin Sodium Extended 100 MG CAPSULE 200 MG PO ×2 (08:06→17:31)
[2022-03-05] MEDS: Colchicine 0.6 MG TABLET PO (08:06)
[2022-03-05] MEDS: 0.9 % Sodium Chloride Flush 3 ML SYRINGE IVFLUSH ×2 (08:07→20:42)
[2022-03-05] MEDS: allopurinoL 100 MG TABLET 200 MG PO (08:07)
[2022-03-05] MEDS: Apixaban 5 MG TABLET PO ×2 (08:07→20:41)
[2022-03-05] MEDS: predniSONE 10 MG TABLET 20 MG PO (08:07)
[2022-03-05] MEDS: vancomycin HCL 1,250 MG in 0.9 % Sodium Chloride 250 ML 166.67 MG IV (09:46)
--- NOTE | 2022-03-05 09:49 | MHC.CM.PN ---
PATIENT LIVES WITH HIS . HE IS INDEPENDENT WITH ADLS. HE DOES HAVE A CANE FOR OCCASIONAL USE CPAP WITH A SETTING OF 10 HE IS HOPING TO GO HOME ON PO ABX, BUT OPEN TO IV ABX AND A [facility] CASE MANAGEMENT FOLLOWING FOR DC NEEDS. CONVERSATION HAD WITH [employer]
--- NOTE | 2022-03-05 12:50 | HO.PM.IMPN ---
Subjective Subjective Date of Service: 03/05/22 Interval History: complaining of left elbow pain with radiation towards left upper arm, denies fever chills, tolerating diet with no nausea, no vomiting, or abdominal discomfort, denies urinary symptoms of urgency frequency, denies chest pain, no shortness of breath, no palpitations no other acute issues overnight, dressing change this morning no drainage noted. Review of Systems Review of Systems: Yes all other systems are reviewed and are negative Physical Exam Vital Signs: Vital Signs: Last Vital Signs Temp 98.5 F 03/05/22 07:20 Pulse 85 03/05/22 07:20 Resp 19 03/05/22 07:20 BP 152/94 H 03/05/22 07:20 Pulse Ox 96 03/05/22 07:20 O2 Del Method 03/05/22 07:20 O2 Flow Rate 97 03/04/22 03:06 BMI result Body Mass Index 44.3 Const: Other: General awake alert x3, no acute distress. Neck is supple no JVD. CVS regular rate rhythm, Respiratory lungs clear to auscultation, no respiratory distress, no wheeze, no rhonchi. Gastrointestinal abdomen soft, nontender, bowel sounds audible, no guarding , no rigidity. Extremities no edema. Left elbow dressing in place no drainage noted Neuro nonfocal psych appropriate affect Objective Data Active Medications Acetaminophen (Acetaminophen 325 Mg Tablet) 975 mg PO Q8H PRN PRN Reason: pain Last Admin: 03/04/22 20:46 Dose: 975 mg Documented By: KENNETH Allopurinol (Allopurinol 100 Mg Tablet) 200 mg PO DAILY [facility] Last Admin: 03/05/22 08:07 Dose: 200 mg Documented By: ZAHIRA Apixaban (Apixaban 5 Mg Tablet) 5 mg PO BID [facility] Last Admin: 03/05/22 08:07 Dose: 5 mg Documented By: ZAHIRA Colchicine (Colchicine 0.6 Mg Tablet) 0.6 mg PO DAILY [facility] Last Admin: 03/05/22 08:06 Dose: 0.6 mg Documented By: ZAHIRA Cyclobenzaprine HCl (Cyclobenzaprine Hcl 10 Mg Tablet) 10 mg PO Q8H [facility] Last Admin: 03/05/22 06:15 Dose: 10 mg Documented By: KENNETH Docusate Sodium (Docusate Sodium 100 Mg Capsule) 100 mg PO BEDTIME [facility] Last Admin: 03/04/22 20:41 Dose: 100 mg Documented By: KENNETH Gabapentin (Gabapentin 100 Mg Capsule) 200 mg PO BID [facility] Last Admin: 03/05/22 08:06 Dose: 200 mg Documented By: ZAHIRA Piperacillin Sod/Tazobactam (Sod 3.375 gm/ Sodium Chloride) 50 mls @ 100 mls/hr IV Q6H [facility] Last Infusion: 03/05/22 09:45 Dose: 0 mls/hr Documented By: ZAHIRA Vancomycin HCl 1,250 mg/ (Sodium Chloride) 250 mls @ 166.667 mls/hr IV Q12H [facility] Last Infusion: 03/05/22 12:08 Dose: 0 mls/hr Documented By: ZAHIRA Morphine Sulfate (Morphine Sulfate 2 Mg/Ml Cartridge) 1 mg IVPUSH Q4H PRN; Protocol PRN Reason: Pain, Mild (Pain Scale 1-3) Non-Formulary Medication (Sarilumab [Ghanshyam]) 200 mg SUBCUT Q2W [facility] Omeprazole (Omeprazole 20 Mg Capsule.) 40 mg PO DAILY@0630 [facility] Last Admin: 03/05/22 06:16 Dose: 40 mg Documented By: KENNETH Pharmacy Consult (Consult Rx Vancomycin Dosing) 1 each MISCELLANE DAILY PRN PRN Reason: Consult order Pharmacy Consult (Consult Rx Perform Med Rec) 1 each MISCELLANE ONCE PRN PRN Reason: Consult order Pharmacy Consult (Consult Rx Vancomycin Dosing) 1 each MISCELLANE DAILY PRN PRN Reason: Consult order Phenobarbital (Phenobarbital 100 Mg Tablet) 200 mg PO BEDTIME [facility] Last Admin: 03/04/22 20:41 Dose: 200 mg Documented By: KENNETH Phenytoin Sodium (Phenytoin Sodium Extended 100 Mg Capsule) 300 mg PO BEDTIME [facility] Last Admin: 03/04/22 20:41 Dose: 300 mg Documented By: KENNETH Phenytoin Sodium (Phenytoin Sodium Extended 100 Mg Capsule) 200 mg PO BID@0900,1600 [facility] Last Admin: 03/05/22 08:06 Dose: 200 mg Documented By: ZAHIRA Prednisone (Prednisone 10 Mg Tablet) 20 mg PO DAILY [facility]; Taper Stop: 03/10/22 08:59 Last Admin: 03/05/22 08:07 Dose: 20 mg Documented By: ZAHIRA Senna (Sennosides 8.6 Mg Tablet) 17.2 mg PO DAILY [facility] Last Admin: 03/05/22 08:06 Dose: 17.2 mg Documented By: ZAHIRA Sodium Chloride (0.9 % Sodium Chloride Flush 3 Ml Syringe) 3 ml IVFLUSH QSHIFT [facility] Last Admin: 03/05/22 08:07 Dose: 3 ml Documented By: ZAHIRA Labs CBC & Chem 7: 03/05/22 06:23 03/05/22 06:23 Labs: Laboratory Results - last 24 hr 03/04/22 03/05/22 03/05/22 20:16 06:23 06:23 MCV 93.6 MCH 32.5 MCHC 34.8 RDW 12.1 Plt Count 199 MPV 9.5 Absolute Nucleated RBC 0.000 Nucleated RBC % (auto) 0.0 Anion Gap Estim Creat Clear Calc Cancelled Estimated GFR Cancelled Random Glucose Calcium Vancomycin Trough 13.4 03/05/22 06:23 MCV MCH MCHC RDW Plt Count MPV Absolute Nucleated RBC Nucleated RBC % (auto) Anion Gap 12 Estim Creat Clear Calc 152.3 Estimated GFR > 60 Random Glucose 88 Calcium 9.4 Vancomycin Trough Microbiology Microbiology Results: Microbiology 03/03/22 08:13 Blood Culture - Preliminary Blood - Venous No growth after 48 hours. 03/03/22 08:13 Blood Culture - Preliminary Blood - Venous No growth after 48 hours. 03/03/22 07:44 Gram Stain - Final Elbow Aspirate - Aspirate Anaerobic Culture - Preliminary No growth to date. Gross Specimen Examination - Final Fluid Crystals - Final Joint Fluid Culture - Preliminary No growth after 2 days 03/03/22 04:21 Blood Culture - Preliminary Blood - Venous No growth after 48 hours. 03/02/22 21:45 Blood Culture - Preliminary Blood - Venous No growth after 48 hours. Assessment and Plan (1) Cellulitis and abscess of upper extremity: Status: Acute (2) Right leg DVT: Status: Acute Plan 46 yo male who initiall presented to the outpatient rheumatology department on 02/25/22 for left elbow pain and swelling. The olecranon bursa was aspirated in the office and noted to have a gummy, thick white substance consistent with tophus . He was started on Allopurinol. On 02/28/22 the patient was again seen in the outpatient rheum office for continues pain and swelling over the left olecranon bursa. Again the bursa was aspirated and sent for culture. Culture resulted in 4+ polys and therefor was started on Keflex 500mg TID x 7 days. The patient continued to have pain and swelling even after starting oral abx and presented to the ED on 03/02/22. He was admitted to the medicine service for IV abx. 1. left elbow Olecranon bursitis likely olecranon gouty bursitis patient complaining of severe left elbow pain, no fevers no chills blood cultures times 48 hours no growth, elbow aspirate shows no growth, 4+ mono sodium urate crystal synovial fluid 49k wbc, no septic arthritis, uric acid level 6.4 on IV vancomycin and Zosyn day 2 , on colchicine, on by mouth prednisone case discussed with Dr. Benson from Rheumatology he recommend to increase dose of prednisone to twice daily, continue Colchicine and increase dose of allopurinol since uric acid above 6 and outpatient follow-up with Rheumatology will DC IV antibiotics, recommend to avoid repetitive movements left elbow . 2.Epilepsy: continue home Phenytion/phenobarb. 3.KRZYSZTOF: Continue albuterol,cpap. 4. dvt : continue eliquis. 5. morbid obesity :? Encouraged low-calorie diet and exercise 6. hx of? R.A:? no acute flare ,continue home meds. ongoing inpatient need: severe left elbow pain on IV analgesics Time Spent With Patient Time: Total time managing care of this patient today ____ minutes. Quality Stroke Does the patient have a stroke diagnosis?: No VTE Prior VTE?: No VTE Risk Level:: Medical - moderate - high VTE Device Contraindication: N/A - Device Ordered VTE Drug Contraindication: N/A - Med Ordered
[2022-03-05 13:28] LABS: Uric Acid 6.4 mg/dL (3.4-7.0)
[2022-03-05 16:00] VITALS: BP 145/97; PULSE 102; RESP 18; TEMP 36.9; O2SAT 97
[2022-03-05 20:00] VITALS: BP 136/85; PULSE 116; RESP 18; TEMP 36.7; O2SAT 95
[2022-03-05 20:25] LABS: Vancomycin Random 12.7 mcg/mL (15-20)
[2022-03-05] MEDS: Phenytoin Sodium Extended 100 MG CAPSULE 300 MG PO (20:41)
[2022-03-05] MEDS: predniSONE 20 MG TABLET PO (20:41)
[2022-03-05] MEDS: Docusate Sodium 100 MG CAPSULE PO (20:41)
[2022-03-06 03:32] VITALS: BP 121/77; PULSE 93; RESP 16; TEMP 36.5; O2SAT 95
[2022-03-06] MEDS: Omeprazole 20 MG CAPSULE.DR 40 MG PO (05:51)
[2022-03-06] MEDS: Cyclobenzaprine HCl 10 MG TABLET PO (05:51)
[2022-03-06 06:53] LABS: Creatinine Clr Calc Pharmacy 166.3; Estimated Glomerular Filt Rate > 60
[2022-03-06 08:00] VITALS: BP 112/79; PULSE 107; RESP 18; TEMP 36.3; O2SAT 95
--- NOTE | 2022-03-06 09:35 | PM.DS ---
DS: Providers Provider Date of Service: 03/06/22 Date of admission: 03/03/22 08:18 Primary care physician: Shi Gage MD Consults: 03/04/22 07:55 Consult to Orthopedics Routine Consulting Provider: [facility] [place] [facility] Reason for consultation: possible septic arthritis of left elbow. Has provider been notified: No DS: Diagnosis Discharge Diagnosis (1) Cellulitis and abscess of upper extremity: Status: Acute (2) Right leg DVT: Status: Acute DS: Summary Hospital Course Hospital Course: Chief Complaint: joint infection 46-year-old male with past medical history of rheumatoid arthritis, epilepsy, is KRZYSZTOF on CPAP,right lower ext dvt(12/31/21)-came to the emergency room for elbow swelling/draining in the left side. patient had swellin developing in the elbow, his supervisor [employer] in aspirate.? Patient was discharged home from the supervisor [employer]'s office after takin joint fluid.?Patient also states that he was informed by his supervisor [employer] that there may be an infection in the elbow.? Patient was started on Keflex and he has been on it for several day,and? Then patient states that the fluid collection started getting more prominent.? Prior to arriving to the ER, patient had a lot of fluid draining from his elbow.? as per Ed physician-had i&d -fluid sen for analysis and requested admission for left elbow cellulitis/bursitis. Denies any new complaint of chest pain or shortness of breath or abdominal pain or fever or chills or nausea or vomiting Denies any cough Denies any weakness or numbness. WBC in the joint fluid is around 50 K range, Has pain in the arm and swelling-elbow. No WBC count or fever Mild hypercalcemia elbow LT min 3V IMPRESSION: No acute fracture is seen. Chronic changes as described above with loose body and joint effusion In the ED received vanco Zosyn since failed outpatient antibiotic therapy-recommended to admit patient for IV antibiotics for elbow cellulitis. hospital course 46 yo male who initiall presented to the outpatient rheumatology department on 02/25/22 for left elbow pain and swelling. The olecranon bursa was aspirated in the office and noted to have a gummy, thick white substance consistent with tophus . He was started on Allopurinol. On 02/28/22 the patient was again seen in the outpatient rheum office for continues pain and swelling over the left olecranon bursa. Again the bursa was aspirated and sent for culture. Culture resulted in 4+ polys and therefor was started on Keflex 500mg TID x 7 days. The patient continued to have pain and swelling even after starting oral abx and presented to the ED on 03/02/22. He was admitted to the medicine service for IV abx. in ED I&D was done over 100 cc of purulent material was drained and fluid was sent to lab. 1.? left? elbow Olecranon bursitis patient admitted with left elbow pain, blood cultures x2 showed no growth, elbow aspirate showed no growth, showed 4+ monosodium urate crystals synovial fluid WBC 23363, uric acid level 6.4 workup consistent with olecranon gouty bursitis, initially treated with IV vanco mycin and Zosyn antibiotic later discontinued, patient treated with prednisone, ill-appearing all, colchicine and analgesics patient today's feeling better left elbow pain has improved, persistent swelling of left elbow bursa with no surrounding erythema, no drainage he is being discharged home on tapering dose of prednisone starting at 40 mg x 3 days, recommend to continue colchicine, and dose of allopurinol increase to 300 mg daily he has been recommended to hold his rheumatology medication kevzara and have close outpatient follow-up with Rheumatology ? ? 2.Epilepsy:?continue home Phenytion/phenobarb. 3.KRZYSZTOF: Continue albuterol,cpap. 4. dvt : continue eliquis. 5. morbid obesity :? Encouraged? low-calorie diet and exercise. 6. hx of? R.A:?? hold kevzara / question has chronic gouty arthritis. Time Spent with Patient Time attestation: Total time managing care of this patient today ____ minutes. Discharge coordination time: Greater than 30 minutes Quality: Safe Use of Opioids Does Pt have an Active Cancer Diagnosis on the Problem List?: No Quality: Stroke Does the patient have a stroke diagnosis?: No Physical Exam Vital Signs: Vital Signs: Last Vital Signs Temp 97.3 F 03/06/22 08:00 Pulse 107 H 03/06/22 08:00 Resp 18 03/06/22 08:00 BP 112/79 03/06/22 08:00 Pulse Ox 95 03/06/22 08:00 O2 Del Method 03/06/22 08:00 O2 Flow Rate 97 03/04/22 03:06 BMI result Body Mass Index 44.3 Const: Other: General? awake alert x3, no acute distress.? Neck is supple no JVD. CVS? regular rate rhythm, Respiratory lungs clear to auscultation, no respiratory distress, no wheeze, no rhonchi. Gastrointestinal abdomen soft, nontender, bowel sounds audible, no guarding , no rigidity. Extremities no edema.? Left elbow bursa no drainage, mild tenderness to palpation no surrounding erythema. Neuro nonfocal psych appropriate affect DS: Data Data Completed and Pending Labs on day of discharge: Laboratory Results - last 24 hr 03/05/22 03/05/22 03/06/22 06:23 19:56 06:27 Creatinine 0.76 Estim Creat Clear Calc 166.3 Estimated GFR > 60 Uric Acid 6.4 Random Vancomycin 12.7 L Preliminary micro results at discharge 03/03/22 07:44 Anaerobic Culture - Preliminary Elbow Aspirate - Aspirate No growth to date. 03/03/22 08:13 Blood Culture - Preliminary Blood - Venous No growth after 48 hours. 03/03/22 08:13 Blood Culture - Preliminary Blood - Venous No growth after 48 hours. 03/03/22 04:21 Blood Culture - Preliminary Blood - Venous No growth after 48 hours. 03/02/22 21:45 Blood Culture - Preliminary Blood - Venous No growth after 48 hours. Discharge Plan Discharge Anticipated Discharge Date/Time: 03/06/22 09:25 Patient Disposition: Home, Self-Care Discharge Diagnosis: left Olecranon gouty bursitis epilepsy Referrals: Shi Lancaster MD [Primary Care Provider] - 1 Week Discharge Medications: New prednisone 10 mg tablet 10 mg PO DIRECTED Qty: 40 0RF Rx Instructions: see taper instructions,further adjustment as per rheumatology allopurinol 300 mg tablet 300 mg PO DAILY Qty: 30 0RF Continued (DME) cane Device See Rx Instructions .Route Qty: 1 0RF Rx Instructions: As directed oxycodone 5 mg tablet 5 mg PO TID PRN (Reason: Pain) phenytoin sodium extended [Dilantin Extended] 100 mg Capsule 200 mg PO BID@0900,1600 phenobarbital 97.2 mg tablet 194.4 mg PO BEDTIME cyclobenzaprine 10 mg tablet 10 mg PO Q8H Qty: 20 0RF phenytoin sodium extended 100 mg capsule 300 mg PO BEDTIME gabapentin 100 mg capsule 2 cap PO BID acetaminophen [Tylenol Extra Strength] 500 mg tablet 1,000 mg PO Q8H PRN (Reason: pain) diclofenac sodium [Voltaren Arthritis Pain] 1 % gel 4 g topical QID PRN (Reason: arthritis pain) Rx Instructions: apply to hands, single knee, ankle, foot; for foot includes sole/toes/top of foot pantoprazole 40 mg tablet,delayed release (DR/EC) 40 mg PO DAILY@0630 colchicine 0.6 mg tablet 0.6 mg PO DAILY Qty: 30 1RF Eliquis 5 mg tablet 5 mg PO BID Discontinued Kevzara 200 mg/1.14 mL pen injector 200 mg subcut Q2W Qty: 2.28 2RF cephalexin 500 mg capsule 500 mg PO TID Qty: 21 0RF naproxen 500 mg tablet 1 tab PO BID allopurinol 100 mg tablet See Rx Instructions .ROUTE .COMPLEX Qty: 60 1RF Rx Instructions: take 1 tab (100mg) po daily for 1 week, then 1 tabs po twice daily thereafter. 03/03/22 - 1 tab daily. Starting 03/04/22 - 2 tab daily prednisone 10 mg tablet See Rx Instructions .ROUTE .COMPLEX Qty: 18 2RF Rx Instructions: take 30mg (3 tabs) po daily for 3 days, then 20mg (2 tabs) po daily for 3 days, then 10mg (1 tab) po daily for 3 days then stop. 03/03/22- taking 3 tablets. Starting 03/04/22 - 2 tabs daily Discharge Orders: Discharge Order (Routine); Ordered 03/06/22 Ordered By: Luly Stone Diet: Advance to usual diet Activity on Discharge: As tolerated Stand Alone Forms: Patient Portal Discharge page Care Plan Goals: avoid left elbow repeated of movements, take prednisone as directed with food, allopurinol 300 mg by mouth daily hold kevzara shots and follow-up with Rheumatology regarding further instructions Health Concerns: resume all other home medications Plan of Treatment: follow-up with primary care physician and call Rheumatology for appointment Assessment: as above
[2022-03-06] MEDS: Apixaban 5 MG TABLET PO (10:33)
[2022-03-06] MEDS: Sennosides 8.6 MG TABLET 17.2 MG PO (10:34)
[2022-03-06] MEDS: Colchicine 0.6 MG TABLET PO (10:34)
[2022-03-06] MEDS: Gabapentin 100 MG CAPSULE 200 MG PO (10:34)
[2022-03-06] MEDS: Phenytoin Sodium Extended 100 MG CAPSULE 200 MG PO (10:35)
[2022-03-06] MEDS: predniSONE 20 MG TABLET PO (10:35)
[2022-03-06] MEDS: allopurinoL 300 MG TABLET PO (11:17)
--- NOTE | 2022-03-06 12:29 | MHC.CM.PN ---
POST DC NOTE - PATIENT DC HOME - SELF CARE PRIOR TO CASE MANAGEMENT RETURN TO UNIT.
== END 2022-03-06 11:30 | disposition home or self-care (01) | DRG 383 ==
LOC: HO.ED 03-03 07:48 → HO.S3 03-03 15:09 → HO.EDOVER 03-04 14:04 → HO.S3 03-04 14:04
PROVIDERS: Physician Assistant Medical; Admitting Provider Internal Medicine; Emergency Provider Emergency Medicine; PCP Internal Medicine; Visit Provider Hospitalist
DX: L02.414 Cutaneous abscess of left upper limb (principal); E66.01 Morbid (severe) obesity due to excess calories; G40.909 Epilepsy, unspecified, not intractable, without status epilepticus; M06.9 Rheumatoid arthritis, unspecified; L03.114 Cellulitis of left upper limb; M1A.0221 Idiopathic chronic gout, left elbow, with tophus (tophi); Z68.41 Body mass index [BMI] 40.0-44.9, adult; E86.0 Dehydration; G47.33 Obstructive sleep apnea (adult) (pediatric); E83.52 Hypercalcemia; Z86.718 Personal history of other venous thrombosis and embolism; Z20.822 Contact with and (suspected) exposure to COVID-19; Z98.84 Bariatric surgery status; Z88.2 Allergy status to sulfonamides; Z88.8 Allergy status to other drugs, medicaments and biological substances; Z79.01 Long term (current) use of anticoagulants; Z79.899 Other long term (current) drug therapy
CPT/HCPCS: 36415; 73080; 80048; 80053; 80202; 82565; 82945; 83605; 83735; 84157; 84550; 85025; 85027; 85610; 85652; 86140; 87040; 87070; 87073; 87205; 87635; 89051; 89060; 99285; J2543; J3370

== ENCOUNTER 2022-03-12 10:53 | Emergency (ER) | payer MEDICAID, SELFPAY ==
--- NOTE | ~2022-03-12 | XR_ITS ---
EXAMINATION: XR WRIST, RIGHT CLINICAL INFORMATION: Pain COMPARISON: Previous x-rays most recent January 2022 TECHNIQUE: 4 views of the right wrist. FINDINGS: There is severe arthritis of all joints of the wrist with joint space narrowing, and osteophyte formation. There is question effusion or bony ankylosis of the proximal carpal row. There may be mild erosive changes of the distal radial ulnar joint. There is prominent osteophyte at the ulnar styloid. There is diffuse soft tissue swelling. No fracture or dislocation. XR/XR wrist RT 2V IMPRESSION: Severe arthritis.
[2022-03-12 12:29] VITALS: BP 149/93; PULSE 101; RESP 18; TEMP 36.9; O2SAT 95; BMI 43.0
[2022-03-12 12:52] LABS: MANUAL DIFF FLAG NO
[2022-03-12 13:02] LABS: Basophils Percent Auto 0.3 % (0-2); Eosinophils Absolute Auto 0.1 X10*3/uL (0.0-0.4); Eosinophils Percent Auto 0.7 % (0-4); Hematocrit 39.9 % (42.0-52.0); Hemoglobin 14.3 g/dl (14.0-18.0); Imm Gran Abs Auto 0.07 X10*3/uL (0.00-0.03); Imm Gran Pct Auto 0.7 % (0.0-0.4); Lymphocytes Absolute Auto 0.9 X10*3/uL (1.2-4.9); Lymphocytes Percent Auto 8.7 % (20-40); Mean Corpuscular HGB Conc 35.8 g/dl (31.0-36.0); Mean Corpuscular Hemoglobin 33.3 pg (27.0-33.0); Mean Platelet Volume 10.1 fL (9.4-12.4); Monocytes Absolute Auto 0.9 X10*3/uL (0.1-1.2); Monocytes Percent Auto 8.7 % (2-11); Neutrophils Absolute Auto 8.4 x10*3/uL (2.0-8.3); Neutrophils Percent Auto 80.9 % (45-73); Red Blood Count 4.29 X10*6/uL (4.60-5.80); Red Cell Distribution Width 12.2 % (11.0-16.0); White Blood Count 10.4 X10*3/uL (4.8-10.8)
[2022-03-12 13:03] LABS: Platelet Count 161 X10*3/uL (160-400)
== END 2022-03-12 16:22 | disposition left against medical advice (07) ==
PROVIDERS: Emergency Provider Emergency Medicine; PCP Internal Medicine
DX: M79.601 Pain in right arm (principal); M25.531 Pain in right wrist; Z79.899 Other long term (current) drug therapy
CPT/HCPCS: 36415; 73100; 80053; 85025; 99281; 99283

== ENCOUNTER 2022-03-12 23:57 | Emergency (ER) | payer MEDICAID, SELFPAY ==
--- NOTE | ~2022-03-12 | US_ITS ---
EXAMINATION: US VENOUS WITH DOPPLER UPPER EXTREMITY, RIGHT CLINICAL INFORMATION: Edema and swelling COMPARISON: None TECHNIQUE: Ultrasound of the upper extremity is performed using compression sonography and color and pulse Doppler flow with assessment of augmentation of flow. There is also imaging and Doppler assessment of the jugular and subclavian veins. Spectral analysis with color-flow imaging is performed. FINDINGS: Respiratory variation, normal compression, and augmented flow are noted throughout the upper extremity including the axillary, brachial, cubital, and radial and ulnar veins. There is normal flow in the internal jugular and subclavian veins. There is no visible deep or superficial thrombophlebitis. If the patient's symptoms progress, a followup ultrasound in 5 -7 days might be of value to exclude proximal propagation from a nonvisualized distal arm vein. US/US venous duplex UE RT IMPRESSION: No DVT demonstrated in the right upper extremity
[2022-03-13 00:02] VITALS: BP 153/110; BP 155/111; PULSE 103; PULSE 110; RESP 20; TEMP 36.7; O2SAT 96; O2SAT 98; BMI 43.0
--- NOTE | 2022-03-13 00:04 | ED_ITS ---
HPI - Extremity Problem General Chief complaint: Extremity Injury, Upper Stated complaint: rt arm pain hx arthritis Time Seen by Provider: 03/13/22 00:00 Source: patient Mode of arrival: ambulatory Limitations: language barrier History of Present Illness HPI Narrative: 46-year-old male presents via EMS for right-sided arm pain and hand swelling for the past 4 days. States it feels like a gout flare or osteoarthritis. He states the hand is so painful that he cannot bend his fingers. Does not report fevers or chills, chest pain or pressure, palpitations, shortness breath or weakness. MD Complaint: extremity pain and extremity swelling Onset (ago): day(s) (4) Pain Consistency: constant Location: right and upper extremity Severity scale (1-10): 8 Quality: aching Radiation: none Relieving factors: nothing Exacerbating factors: range of motion and palpation Associated symptoms: denies other symptoms Context: history of DVT Related Data Home Medications Medication Instructions Recorded Confirmed phenytoin sodium extended 100 mg 200 mg PO BID@0900,1600 02/07/20 03/03/22 capsule (Dilantin Extended) phenobarbital 97.2 mg tablet 194.4 mg PO BEDTIME 03/28/21 03/03/22 oxycodone 5 mg tablet 5 mg PO TID PRN Pain 06/11/21 03/03/22 pantoprazole 40 mg tablet,delayed 40 mg PO DAILY@0630 10/24/21 03/03/22 release apixaban 5 mg tablet (Eliquis) 5 mg PO BID 02/25/22 03/03/22 acetaminophen 500 mg tablet 1,000 mg PO Q8H PRN pain 03/03/22 03/03/22 (Tylenol Extra Strength) diclofenac sodium 1 % topical gel 4 g topical QID PRN arthritis pain 03/03/22 03/03/22 (Voltaren Arthritis Pain) gabapentin 100 mg capsule 2 cap PO BID 03/03/22 03/03/22 phenytoin sodium extended 100 mg 300 mg PO BEDTIME 03/03/22 03/03/22 capsule Previous Rx's Medication Instructions Recorded cyclobenzaprine 10 mg tablet 10 mg PO Q8H #20 tabs 07/26/20 cane #1 ea 02/01/21 colchicine 0.6 mg tablet 0.6 mg PO DAILY #30 tabs 02/25/22 prednisone 10 mg tablet 10 mg PO DIRECTED #40 tabs 03/06/22 allopurinol 300 mg tablet 300 mg PO DAILY #90 tabs 03/12/22 Allergies Allergy/AdvReac Type Severity Reaction Status Date / Time Sulfa (Sulfonamide Allergy Severe DIFFICULTY Verified 02/28/22 17:34 Antibiotics) BREATHING, [SULFA (SULFONAMIDE RASH, ANTIBIOTICS)] rash, hypertension prednisone Allergy Palpitation Verified 02/28/22 17:34 s Review of Systems Review of Systems: Constitutional: No Fever, No Chills Cardiovascular: No Chest Pain, No SOB Respiratory: No Cough, No Dyspnea Gastrointestinal: No Nausea, No Vomiting, No Diarrhea, No abdominal Pain Genitourinary: No Dysuria, No Hematuria Musculoskeletal: positive right arm swelling and pain, No Myalgias, No Joint Swelling Skin: No Skin lacerations, No rash Neuro: No Weakness, No Numbness, No Paresthesias, No Loss of Consciousness, No Dizziness, No Headache Yes all other systems are reviewed and are negative [facility] Past Medical History Attestation statement: The following information was validated with the patient. Source: old records reviewed Medical History Chronic tophaceous gout History of epilepsy HTN (hypertension) Lumbar radiculopathy Rheumatoid arthritis Rheumatoid arthritis Right leg DVT Sleep apnea Tachycardia Surgical History History of spinal surgery Hx of bariatric surgery Hx of exploratory laparotomy Family History Family History Maternal Uncle Colon cancer Paternal Aunt Breast cancer Social History Social History Household Members: Spouse Housing: Apartment Are you a primary lpn care manager to a significant other at home: Yes ( disabled) Do you presently have visiting nurse or other home services: No Alcohol intake: never Patient Tobacco Use Status: Never used Tobacco e-Cigarette/Vaping Use: Never Used service: No Current occupational status: disabled Physical Exam Vital Signs: Vital Signs: Last Vital Signs Temp 98.0 F 03/13/22 00:02 Pulse 100 03/13/22 01:58 Resp 18 03/13/22 01:58 BP 140/88 H 03/13/22 01:58 Pulse Ox 96 03/13/22 01:58 O2 Del Method 03/13/22 01:58 BMI result Body Mass Index 43.0 Appearance: Alert. Oriented X3. No acute distress. Eyes: Pupils equal, round and reactive to light. ENT: Pharynx normal. Neck: Normal inspection. Neck supple. CVS: Normal heart rate and rhythm. Pulses normal. Respiratory: No respiratory distress. Breath sounds normal. Abdomen: Soft and nontender. Obese. Skin: Skin warm and dry. Normal skin color. Normal skin turgor. Extremities: Right hand swollen, tender to palpation from digits to elbow, no shoulder pain. Full range of motion to the shoulder. Brisk capillary refill in the pulses. Neuro: No motor deficit. No sensory deficit. Cranial nerves 2-12 intact. Course Course Course Narrative: 46-year-old male presents via EMS for right arm and hand pain. Pain extends from the elbow to the fingertips. He does have some swelling to the hand, with brisk capillary refill and equal pulses. Patient states being 10/10 pain on minimal palpation. He does have a history of DVT, has a history of osteoarthritis, and gout. He does take Eliquis, diagnosed with DVT to left lower extremity in December of 2021. Patient is morbidly obese, and is Palestinian- speaking. Will order duplex of the upper extremity, and EKG. Labs ordered. 02:30 duplex is negative. Patient does have medications for pain management as well as gout at home. Will have patient take medications that are prescribed him previously. I did encourage patient follow-up with primary care physician patient verbalized understanding of and agrees to plan of care discharge home. Verbalized understanding of signs and symptoms indicating need for emergent intervention. Medications Administered Discontinued Medications Generic Name Dose Route Start Last Admin Trade Name Freq PRN Reason Stop Dose Admin Acetaminophen 650 mg 03/13/22 02:08 03/13/22 02:16 Acetaminophen 325 Mg Tablet PO 03/13/22 02:09 650 mg ONCE ONE Administration Medical Decision Making Differential Diagnosis Differential Diagnoses: The differential diagnosis associated with the pres entation includes Admission/Observation Consideration of admission/observation: Escalation of care including admission/observation considered This patient does not require admission Lab Data MDM Lab Attestation statement: I reviewed the patient's lab results. Result Diagrams: 03/13/22 00:56 03/13/22 00:56 Labs: Lab Results 03/13/22 03/13/22 03/13/22 Range/Units 00:56 00:56 02:08 WBC 8.3 (4.8-10.8) X10*3/uL RBC 4.15 L (4.60-5.80) X10*6/uL Hgb 14.0 (14.0-18.0) g/dl Hct 40.6 L (42.0-52.0) % MCV 97.8 (80.0-98.0) fL MCH 33.7 H (27.0-33.0) pg MCHC 34.5 (31.0-36.0) g/dl RDW 12.4 (11.0-16.0) % Plt Count 180 (160-400) X10*3/uL MPV 9.8 (9.4-12.4) fL Immature Gran % (Auto) 0.2 (0.0-0.4) % Neut % (Auto) 66.8 (45-73) % Lymph % (Auto) 16.4 L (20-40) % [place] % (Auto) 15.1 H (2-11) % Eos % (Auto) 1.3 (0-4) % Baso % (Auto) 0.2 (0-2) % Lymph # (Auto) 1.4 (1.2-4.9) X10*3/uL [place] # (Auto) 1.3 H (0.1-1.2) X10*3/uL Eos # (Auto) 0.1 (0.0-0.4) X10*3/uL Baso # (Auto) 0.0 (0.0-0.2) X10*3/uL Abs Immat Gran (auto) 0.02 (0.00-0.03) X10*3/uL Absolute Neuts (auto) 5.5 (2.0-8.3) x10*3/uL Absolute Nucleated RBC 0.000 (0.0-0.012) X10*3/uL Nucleated RBC % (auto) 0.0 (0.0-0.2) /100WBC Sodium 136 (135-145) mmol/L Potassium 3.9 (3.3-5.1) mmol/L Chloride 106 (96-108) mmol/L Carbon Dioxide 20 L (22-29) mmol/L Anion Gap 14 (12-20) BUN 16 (9-16) mg/dL Creatinine 1.10 (0.5-1.4) mg/dL Estim Creat Clear Calc 116.5 Estimated GFR > 60 Random Glucose 106 (60-115) mg/dL Calcium 9.4 (8.4-10.2) mg/dL COVID-19 (CLEMENTINE) Cancelled COVID-19 Clin Com Cancelled Independent Interpretation I performed an independent interpretation of an: Ultrasound Radiology Impression Discussion of test interpretation with radiology: I have reviewed the radiologist's reading. Radiologist Impression: EXAMINATION:? US VENOUS WITH DOPPLER UPPER EXTREMITY, RIGHT CLINICAL INFORMATION:? Edema and swelling COMPARISON:? None TECHNIQUE: Ultrasound of the upper extremity is performed using compression sonography and color and pulse Doppler flow with assessment of augmentation of flow. There is also imaging and Doppler assessment of the jugular and subclavian veins. Spectral analysis with color-flow imaging is performed. FINDINGS: Respiratory variation, normal compression, and augmented flow are noted throughout the upper extremity including the axillary, brachial, cubital, and radial and ulnar veins. There is normal flow in the internal jugular and subclavian veins. There is no visible deep or superficial thrombophlebitis. If the patient's symptoms progress, a followup ultrasound in 5 -7 days might be of value to exclude proximal propagation from a nonvisualized distal arm vein. US/US venous duplex UE RT IMPRESSION: No DVT demonstrated in the right upper extremity External Record Review External record reviewed: Inpatient record and Outpatient record Chronic Conditions Patient?s care impacted by: Hypertension Discharge Plan Discharge Clinical Impression: Chronic tophaceous gout Patient Disposition: Home, Self-Care Instructions: Gout (ED) Additional Instructions: Please take the medications that were prescribed to you. Duplex is negative for acute findings to the right upper extremity. Thank you for choosing this emergency department for evaluation. Please follow-up with primary care physician as needed. Return to the emergency dep artment for any new, concerning, or worsening symptoms. Prescriptions: No Action (DME) cane Device See Rx Instructions .Route Qty: 1 0RF Rx Instructions: As directed oxycodone 5 mg tablet 5 mg PO TID PRN (Reason: Pain) allopurinol 300 mg tablet 300 mg PO DAILY Qty: 90 3RF Rx Instructions: Note increase in dose to 300 mg daily - stop the 100 mg tabs phenytoin sodium extended [Dilantin Extended] 100 mg Capsule 200 mg PO BID@0900,1600 phenobarbital 97.2 mg tablet 194.4 mg PO BEDTIME cyclobenzaprine 10 mg tablet 10 mg PO Q8H Qty: 20 0RF phenytoin sodium extended 100 mg capsule 300 mg PO BEDTIME gabapentin 100 mg capsule 2 cap PO BID acetaminophen [Tylenol Extra Strength] 500 mg tablet 1,000 mg PO Q8H PRN (Reason: pain) diclofenac sodium [Voltaren Arthritis Pain] 1 % gel 4 g topical QID PRN (Reason: arthritis pain) Rx Instructions: apply to hands, single knee, ankle, foot; for foot includes sole/toes/top of foot prednisone 10 mg tablet 10 mg PO DIRECTED Qty: 40 0RF Rx Instructions: see taper instructions,further adjustment as per rheumatology pantoprazole 40 mg tablet,delayed release (DR/EC) 40 mg PO DAILY@0630 colchicine 0.6 mg tablet 0.6 mg PO DAILY Qty: 30 1RF Eliquis 5 mg tablet 5 mg PO BID
--- NOTE | 2022-03-13 00:06 | ECG_ITS ---
Test Reason : SWELLING Blood Pressure : / mmHG Vent. Rate : 106 BPM Atrial Rate : 106 BPM P-R Int : 164 ms QRS Dur : 090 ms QT Int : 340 ms P-R-T Axes : 025 012 027 degrees QTc Int : 451 ms Sinus tachycardia Otherwise normal ECG When compared with ECG of 23-SEP-2020 12:31, Premature ventricular complexes are no longer Present Referred By: Charlotte Perez Electronically Signed By:ADEBAYO GARCIA MD
[2022-03-13 01:00] LABS: MANUAL DIFF FLAG NO
[2022-03-13 01:03] LABS: Basophils Percent Auto 0.2 % (0-2); Eosinophils Absolute Auto 0.1 X10*3/uL (0.0-0.4); Eosinophils Percent Auto 1.3 % (0-4); Hematocrit 40.6 % (42.0-52.0); Imm Gran Abs Auto 0.02 X10*3/uL (0.00-0.03); Imm Gran Pct Auto 0.2 % (0.0-0.4); Lymphocytes Absolute Auto 1.4 X10*3/uL (1.2-4.9); Lymphocytes Percent Auto 16.4 % (20-40); Mean Corpuscular HGB Conc 34.5 g/dl (31.0-36.0); Mean Corpuscular Hemoglobin 33.7 pg (27.0-33.0); Mean Corpuscular Volume 97.8 fL (80.0-98.0); Mean Platelet Volume 9.8 fL (9.4-12.4); Monocytes Absolute Auto 1.3 X10*3/uL (0.1-1.2); Monocytes Percent Auto 15.1 % (2-11); Neutrophils Absolute Auto 5.5 x10*3/uL (2.0-8.3); Neutrophils Percent Auto 66.8 % (45-73); Platelet Count 180 X10*3/uL (160-400); Red Blood Count 4.15 X10*6/uL (4.60-5.80); Red Cell Distribution Width 12.4 % (11.0-16.0); White Blood Count 8.3 X10*3/uL (4.8-10.8)
[2022-03-13 01:31] LABS: Anion Gap 14 (12-20); Blood Urea Nitrogen 16 mg/dL (9-16); Calcium 9.4 mg/dL (8.4-10.2); Carbon Dioxide 20 mmol/L (22-29); Chloride 106 mmol/L (96-108); Creatinine Clr Calc Pharmacy 116.5; Estimated Glomerular Filt Rate > 60; Glucose Random 106 mg/dL (60-115); Potassium 3.9 mmol/L (3.3-5.1); Sodium 136 mmol/L (135-145)
[2022-03-13 01:58] VITALS: BP 140/88; PULSE 100; RESP 18; O2SAT 96
[2022-03-13] MEDS: Acetaminophen 325 MG TABLET 650 MG PO (02:16)
[2022-03-13 02:55] LABS: Influenza A PCR NEGATIVE (Negative); Influenza B PCR NEGATIVE (Negative); Resp Syncy Virus RNA Qual PCR NEGATIVE (Negative); SARS COV2 PCR INHOUSE NEGATIVE (Negative)
== END 2022-03-13 05:44 | disposition home or self-care (01) ==
PROVIDERS: Nurse Practitioner Family; Emergency Provider Emergency Medicine
DX: M1A.09X1 Idiopathic chronic gout, multiple sites, with tophus (tophi) (principal); R00.2 Palpitations; R60.0 Localized edema; Z20.822 Contact with and (suspected) exposure to COVID-19; Z79.899 Other long term (current) drug therapy
CPT/HCPCS: 0241U; 36415; 80048; 85025; 93005; 93971; 99284

== ENCOUNTER 2022-03-21 10:54 | Outpatient (REF) | payer MEDICAID, SELFPAY ==
[2022-03-21 11:07] LABS: MANUAL DIFF FLAG NO
[2022-03-21 11:41] LABS: Basophils Percent Auto 0.3 % (0-2); Eosinophils Absolute Auto 0.1 X10*3/uL (0.0-0.4); Eosinophils Percent Auto 0.8 % (0-4); Hematocrit 39.5 % (42.0-52.0); Hemoglobin 13.7 g/dl (14.0-18.0); Imm Gran Abs Auto 0.03 X10*3/uL (0.00-0.03); Imm Gran Pct Auto 0.3 % (0.0-0.4); Lymphocytes Absolute Auto 0.9 X10*3/uL (1.2-4.9); Mean Corpuscular HGB Conc 34.7 g/dl (31.0-36.0); Mean Corpuscular Hemoglobin 32.8 pg (27.0-33.0); Mean Corpuscular Volume 94.5 fL (80.0-98.0); Mean Platelet Volume 9.3 fL (9.4-12.4); Monocytes Absolute Auto 0.7 X10*3/uL (0.1-1.2); Neutrophils Absolute Auto 7.2 x10*3/uL (2.0-8.3); Neutrophils Percent Auto 80.6 % (45-73); Platelet Count 310 X10*3/uL (160-400); Red Blood Count 4.18 X10*6/uL (4.60-5.80); Red Cell Distribution Width 11.8 % (11.0-16.0); White Blood Count 8.9 X10*3/uL (4.8-10.8)
[2022-03-21 12:23] LABS: Alanine Aminotransferase 32 U/L (0-40); Albumin Level 4.2 g/dL (3.5-5.0); Alkaline Phosphatase 91 U/L (39-117); Anion Gap 15 (12-20); Aspartate Amino Transferase 19 U/L (5-37); Bilirubin Total 0.3 mg/dL (0.0-1.0); Blood Urea Nitrogen 14 mg/dL (9-16); C Reactive Protein 5.99 mg/dL (< or = 0.50); Calcium 10.1 mg/dL (8.4-10.2); Carbon Dioxide 24 mmol/L (22-29); Chloride 103 mmol/L (96-108); Estimated Glomerular Filt Rate > 60; Glucose Random 117 mg/dL (60-115); Potassium 4.1 mmol/L (3.3-5.1); Sodium 138 mmol/L (135-145); Total Protein 7.7 g/dL (6.5-8.0); Uric Acid 6.8 mg/dL (3.4-7.0)
[2022-03-21 12:29] LABS: Erythrocyte Sedimentation Rate 81 MM/HR (0-15)
== END 2022-03-21 10:55 | disposition home or self-care (01) ==
LOC: HO.LAB 10:54
PROVIDERS: PCP Internal Medicine; Visit Provider Nurse Practitioner Family
DX: M05.9 Rheumatoid arthritis with rheumatoid factor, unspecified (principal); M25.50 Pain in unspecified joint
CPT/HCPCS: 36415; 80053; 84550; 85025; 85652; 86140; 99212

== ENCOUNTER → 2022-03-26 10:58 | Outpatient (BNVA) | payer MEDICAID, SELFPAY | PROVIDERS: PCP Internal Medicine; Visit Provider Nurse Practitioner Family | DX: M1A.9XX1 Chronic gout, unspecified, with tophus (tophi) (principal); M05.9 Rheumatoid arthritis with rheumatoid factor, unspecified; M70.22 Olecranon bursitis, left elbow | CPT/HCPCS: 99212 ==

== ENCOUNTER 2022-04-01 11:52 | Outpatient (REF) | payer MEDICAID, SELFPAY ==
[2022-04-01 14:34] LABS: Uric Acid 6.6 mg/dL (3.4-7.0)
[2022-04-01 14:35] LABS: Anion Gap 13 (12-20); Blood Urea Nitrogen 12 mg/dL (9-16); C Reactive Protein 6.54 mg/dL (< or = 0.50); Calcium 9.6 mg/dL (8.4-10.2); Carbon Dioxide 26 mmol/L (22-29); Chloride 104 mmol/L (96-108); Estimated Glomerular Filt Rate > 60; Glucose Random 86 mg/dL (60-115); Potassium 3.7 mmol/L (3.3-5.1); Sodium 139 mmol/L (135-145)
[2022-04-01 14:44] LABS: Erythrocyte Sedimentation Rate 86 MM/HR (0-15)
== END 2022-04-01 11:53 | disposition home or self-care (01) ==
LOC: HO.LAB 11:52
PROVIDERS: Internal Medicine Rheumatology; PCP Internal Medicine; Visit Provider Nurse Practitioner Family
DX: M1A.9XX1 Chronic gout, unspecified, with tophus (tophi) (principal)
CPT/HCPCS: 36415; 80048; 84550; 85652; 86140

== ENCOUNTER → 2022-04-02 13:56 | Outpatient (BNVA) | payer MEDICAID, SELFPAY | PROVIDERS: PCP Internal Medicine; Visit Provider Nurse Practitioner Family | DX: M70.22 Olecranon bursitis, left elbow (principal); M1A.9XX1 Chronic gout, unspecified, with tophus (tophi); M05.9 Rheumatoid arthritis with rheumatoid factor, unspecified; Z79.899 Other long term (current) drug therapy | CPT/HCPCS: 99212 ==

== ENCOUNTER 2022-04-10 10:53 | Outpatient (REF) | payer MEDICAID, SELFPAY ==
[2022-04-10 12:23] LABS: Blood Urea Nitrogen 16 mg/dL (9-16); C Reactive Protein 1.85 mg/dL (< or = 0.50); Estimated Glomerular Filt Rate > 60; Uric Acid 6.4 mg/dL (3.4-7.0)
[2022-04-10 14:22] LABS: Erythrocyte Sedimentation Rate 50 MM/HR (0-15)
== END 2022-04-10 10:54 | disposition home or self-care (01) ==
LOC: HO.LAB 10:53
PROVIDERS: PCP Internal Medicine; Visit Provider Nurse Practitioner Family
DX: M1A.9XX1 Chronic gout, unspecified, with tophus (tophi) (principal)
CPT/HCPCS: 36415; 82565; 84520; 84550; 85652; 86140

== ENCOUNTER → 2022-04-11 08:58 | Outpatient (BNVA) | payer MEDICAID, SELFPAY | PROVIDERS: PCP Internal Medicine; Visit Provider Nurse Practitioner Family | DX: M1A.9XX1 Chronic gout, unspecified, with tophus (tophi) (principal); M05.9 Rheumatoid arthritis with rheumatoid factor, unspecified; M70.22 Olecranon bursitis, left elbow | CPT/HCPCS: 99212 ==

== ENCOUNTER 2022-04-22 14:26 | Outpatient (REF) | payer MEDICAID, SELFPAY ==
[2022-04-22 15:35] LABS: Phenytoin Dilantin 18.2 ug/mL (10.0-20.0)
[2022-04-22 15:38] LABS: Blood Urea Nitrogen 13 mg/dL (9-16); C Reactive Protein 3.76 mg/dL (< or = 0.50); Estimated Glomerular Filt Rate > 60; Uric Acid 6.6 mg/dL (3.4-7.0)
[2022-04-22 16:29] LABS: Erythrocyte Sedimentation Rate 75 MM/HR (0-15)
== END 2022-04-22 14:27 | disposition home or self-care (01) ==
LOC: HO.LAB 14:26
PROVIDERS: Absent Provider Psychiatry & Neurology Neurology; PCP Internal Medicine; Visit Provider Nurse Practitioner Family
DX: R56.1 Post traumatic seizures (principal); M10.9 Gout, unspecified
CPT/HCPCS: 36415; 80185; 82565; 84520; 84550; 85652; 86140

== ENCOUNTER → 2022-04-30 12:01 | Outpatient (BNVA) | payer MEDICAID, SELFPAY | PROVIDERS: PCP Internal Medicine; Visit Provider Nurse Practitioner Family | DX: M70.22 Olecranon bursitis, left elbow (principal); M05.9 Rheumatoid arthritis with rheumatoid factor, unspecified; M1A.9XX1 Chronic gout, unspecified, with tophus (tophi) | CPT/HCPCS: 99212 ==

== ENCOUNTER → 2022-05-13 10:17 | Outpatient (BNVA) | payer MEDICAID, SELFPAY | PROVIDERS: PCP Internal Medicine; Visit Provider Internal Medicine | DX: M96.1 Postlaminectomy syndrome, not elsewhere classified (principal) | CPT/HCPCS: 99202 ==

== ENCOUNTER 2022-05-16 09:02 | Outpatient (REF) | payer MEDICAID, SELFPAY ==
[2022-05-16 10:54] LABS: Alanine Aminotransferase 25 U/L (0-40); Albumin Level 4.2 g/dL (3.5-5.0); Alkaline Phosphatase 123 U/L (39-117); Anion Gap 16 (12-20); Aspartate Amino Transferase 17 U/L (5-37); Bilirubin Total 0.4 mg/dL (0.0-1.0); Blood Urea Nitrogen 11 mg/dL (9-16); Calcium 9.9 mg/dL (8.4-10.2); Carbon Dioxide 27 mmol/L (22-29); Chloride 100 mmol/L (96-108); Estimated Glomerular Filt Rate > 60; Glucose Random 95 mg/dL (60-115); Potassium 3.9 mmol/L (3.3-5.1); Sodium 139 mmol/L (135-145); Total Protein 7.7 g/dL (6.5-8.0); Uric Acid 5.5 mg/dL (3.4-7.0)
== END 2022-05-16 09:03 | disposition home or self-care (01) ==
LOC: HO.LAB 09:02
PROVIDERS: PCP Internal Medicine; Visit Provider Nurse Practitioner Family
DX: M1A.9XX1 Chronic gout, unspecified, with tophus (tophi) (principal)
CPT/HCPCS: 36415; 80053; 84550

== ENCOUNTER 2022-05-20 11:30 | Outpatient (RCR) | payer MEDICAID, SELFPAY ==
--- NOTE | 2022-04-29 09:17 | MHC.OT.OEV ---
[address] [phone] F: [phone] Occupational Therapy Evaluation Diagnosis: Seropositive RA Right wrist and hand gout flare Date of Onset: 03/02/23 Date of Surgery: Attending Provider: Tabitha Macdonald Prescribed Treatment: Eval and neno SCHULTZ Follow Up Appointment: History of Current Condition: 02/25/22 pt with olecranon bursitis , 03/02/22 pt right arm cellulitis admitted here at [facility] for treatment. 03/12/22 Doppler US , no DVT demonstrated in RUE Pt with right wrist and hand flare. XR shows severe OA with question of effusion or bony ankylosis. Pt referred to OT Significant Medical History: Seropositive RA, HTN, Tachycardia, ho epilepsy, morbid obesity, [id number] Precautions/Contraindications: Pain Patient Goals: Improve pain and movement Hand Dominance: Right Observations: QuickDASH Score: Prior Level of Function and Occupation Self Care, Employment, Leisure: Difficulty with tasks due to RA jt pain. Unable to do heavy work. Disabled for many years Living Situation, Family and/or Social Support: Live with his wift Current Level of Function and Occupation Self Care, Employment, Leisure: Severe difficulty with daily activities due to RUE pain and limited motion Assist from his with with daily acitivities. Pt avoiding use of RUE. Feeding self with left hand. Sleep: WFL Driving: Not driving Vision: Balance: Pain Assessment Pain Score: 9 Pain Scale Used: Numeric (0 - 10) Pain Location and Description: Right wrist and hand Aggravating Factors: Right wrist and hand motion and pressure on wrist Alleviating Factors: Avoiding use Skin and Soft Tissue Assessment Skin and Soft Tissue: Atrophy Contracture Swelling Comments: Right UE muscle atrophy Right wrist and hand jt effusion Right UE ROM impairment Nerve assessment Ulnar Nerve: Not Tested Median Nerve: Not Tested Radial Nerve: Not Tested Comments: Sensory Assessment Temperature: Light Touch: Not Tested Proprioception: Vibration: Comments: Edema Assessment Upper Extremity: Right Impaired Lower Extremity: Comments: Right wrist and hand Dexterity Assessment Dexterity: Right Impaired Comments: Pinch and wide gross grasp grossly intact Special Tests Comments: AROM(PROM) Strength Cervical Cervical Flexion: Cervical Extension: Cervical Lateral Flexion: Cervical Rotation: Comments: Shoulder Flexion: Extension: Abduction: Internal Rotation: External Rotation: Comments: Flexion: 80 Extension: Abduction: Internal Rotation: External Rotation: Comments: Elbow Flexion: 90 Extension: 20 Pronation: Supination: Comments: Flexion: Extension: Pronation: Supination: Comments: Wrist Flexion: Extension: Ulnar Deviation: Radial Deviation: Comments: Flexion: Extension: Ulnar Deviation: Radial Deviation: Comments: Thumb Thumb CMC Flexion: Thumb MCP Flexion: 0 Thumb IP Flexion: 40 Radial Abduction: 35 Palmar Abduction: 35 [place] (Kapandji 0-10): Comments: Digits Index MCP: PIP: DIP: Long MCP: PIP: DIP: Ring MCP: 20/ PIP: 0/90 DIP: 0/40 Small MCP: PIP: DIP: Comments: Gross Grasp: Lateral Pinch: Two-Point Pinch: Three-Jaw Raimundo: Comments: Deferred Patient Education Primary Language: Flight Line Mechanic Required: Yes Current Knowledge: Minimal, needs reinforcement Teaching Method: Demonstration Verbal Education Needs Identified on Evaluation: ADL's Disease Information Equipment Use Exercise Pain How did patient/family demonstrate learning? Patient demonstrates Patient verbalizes Barriers to Learning: None Readiness for Learning: Accepting Who was educated? Patient Comments: Plan of Care Assessment: Pt is a 46 yo male with a complicated medical history including a recent gouty flare at his right elbow followed by a gouty flare or right wrist and hand Right elbow is improving with residual elbow contracture and UE muscle atrophy Right wrist and hand with high pain, and edema with possible dany effusion of PCR STG Duration: 3 wks Short Term Goals: Pt will report decreased pain with use of a custom forearm based resting hand orthosis as needed Demo decreased wrist edema Demo indep with UE ROM with use of wrist orthosis as needed Demo knowledge of joint protection principles Demo use for RUE use with light activity with use of wrist orthosis as needed Indep with self ROM and strengthening ther ex LTG Duration: 6 wks Etl Bi Developer Goals: Demo knowledge of joint protection principles and techniques with daily activities Demo knowledge of AD options for joint protection Use of RUE for light ADL with use of AD as needed Right shoulder flexion to 110 deg Right elbow flexion to > 110 deg Right PIP jts to > 90 deg Demo indep with self management of RA Frequency and Duration: The patient will be seen 2x wk x 6 wks Treatment Plan: Therapeutic Exercise Therapeutic Activity Home Exercise Program Splinting Patient Education Edema Control ADL Training Electronically Signed By: Margarita Nicole OT CHT CLT Reviewed/agree with student documentation: Therapist: Please sign and return to therapist, Thank you for your referral.
--- NOTE | 2022-05-20 13:24 | MHC.OT.DC ---
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 He has done very well w/ brief course of OT, reports excellent improvements in pain, edema and general UE ROM, expect very limited wrist range, which he reports is his baseline. Hand strength is now functional and continues to improve w/ daily use and HEP. He has been very motivated and encouraged w/ progress and current status. No further outpatient OT at this time, he will continue HEP and has resting wrist orthosis as needed for future flare ups. Electronically Signed By: Gabbie Calles OTR/L CHT Please Sign and return to therapist, thank you for your referral.
== END 2022-05-20 13:25 | disposition home or self-care (01) ==
LOC: HO.OT 11:30
PROVIDERS: PCP Internal Medicine; Visit Provider Nurse Practitioner Family
DX: M19.231 Secondary osteoarthritis, right wrist (principal)
CPT/HCPCS: 29125; 97110; 97140; 97167; 97760

== ENCOUNTER → 2022-05-24 11:28 | Outpatient (BNVA) | payer MEDICAID, SELFPAY | PROVIDERS: PCP Internal Medicine; Visit Provider Nurse Practitioner Family | DX: M70.22 Olecranon bursitis, left elbow (principal); M05.9 Rheumatoid arthritis with rheumatoid factor, unspecified; M1A.9XX1 Chronic gout, unspecified, with tophus (tophi) | CPT/HCPCS: 99212 ==

== ENCOUNTER 2022-06-05 13:23 | Outpatient (REF) | payer MEDICAID, SELFPAY ==
--- NOTE | ~2022-06-05 | MR_ITS ---
EXAMINATION: MR LUMBAR SPINE WITHOUT AND WITH CONTRAST CLINICAL INFORMATION: Post laminectomy syndrome. COMPARISON: MRI scan of the lumbar spine 12/20/2018. TECHNIQUE: MRI of the lumbar spine was obtained using routine sequences with and without contrast. Intravenous contrast: Gadavist 10 mL FINDINGS: VERTEBRAL BODIES AND PARASPINAL STRUCTURES: There is a mild levoscoliosis. There is a mild retrolisthesis of L2 on L3. There is multilevel narrowing of intervertebral disc height, most severe at L2-L3. There are multilevel degenerative endplate contour changes. Fatty endplate signal changes are seen at T11-T12. There are edematous endplate signal changes with enhancement at L2-L3, most prominent toward the left. There are prominent right-sided flowing osteophytes at T11-T12 and T12-L1. There are no acute fractures and vertebral body heights are maintained. There are Schmorl's nodes at adjacent endplates at multiple levels. Overall, marrow signal is slightly heterogenous. There are sequelae of laminectomies at L1-L2 and L2-L3. There is a small cyst at the midpole of the left kidney anteriorly. The infrarenal abdominal artery is slightly tortuous but no aneurysm is demonstrated. The visualized pelvic structures are unremarkable. CONUS MEDULLARIS AND CAUDA EQUINA: Normal, terminating at the level of L1. The lower thoracic spinal cord has normal signal and there is no abnormal enhancement. The filum terminale appears normal. There is crowding of the cauda equina nerve roots from central stenosis at multiple levels. There is no abnormal enhancement of the cauda equina nerve roots. SPINAL LEVELS: T12-L1: There is mild bilateral facet arthropathy. Disc contour is normal. There is no central stenosis or foraminal narrowing. L1-L2: There are sequelae of bilateral laminectomies, and is mild facet arthropathy. There is a central and left-sided disc protrusion, extruding into the left subarticular recess with marked narrowing, and with increased mass effect on the thecal sac compared to prior imaging. There is impingement on the traversing left L2 nerve root. There is no foraminal nerve root impingement. There is moderate to severe central stenosis on the current study. L2-L3: There are sequelae of bilateral laminectomies. There is moderate to severe facet arthropathy, increased on the right compared to prior imaging. There is a broad-based posterior disc protrusion with extrusion behind the body of L2 in the midline, similar compared to prior imaging. There is marked narrowing of the bilateral subarticular recesses with impingement on the traversing L3 nerve roots. There is severe central stenosis. There are bilateral foraminal disc protrusions without definite exiting nerve root impingement. L3-L4: There is moderate to severe bilateral facet arthropathy. There is a broad-based posterior disc protrusion with an extruded component extending behind the body of L4 centrally and to the right of midline, which is more prominent compared to prior imaging, and there is now severe compression of the thecal sac with severe central stenosis. There is narrowing of the bilateral subarticular recesses. There are right greater than left foraminal disc protrusions without definite exiting nerve root impingement. L4-L5: There is moderate to severe bilateral facet arthropathy with ligamenta flava hypertrophy. There is a central and left-sided disc protrusion extending into the left neural foramen and far laterally with impingement on the exiting and extraforaminal left L4 nerve root. On the right there is a disc protrusion with an annular tear extending far laterally with impingement on the extraforaminal right L4 nerve root, similar compared to prior imaging. There is marked narrowing of the left subarticular recess, and there is mild to moderate central stenosis. These findings have progressed compared to prior imaging. L5-S1: There is markedly severe left and severe right facet arthropathy. There is a posterior disc protrusion with an annular fissure which is most prominent centrally and toward the left extending into the left neural foramen with impingement on the exiting left L5 nerve root. There is narrowing of the left subarticular recess with impingement on the traversing left S1 nerve root. There is minimal central stenosis. MR/MR lumbar spine wo/w con IMPRESSION: 1. At L1-L2 there are sequelae of bilateral laminectomies. There is a central and left-sided disc protrusion/extrusion with increased mass effect on the thecal sac compared to prior imaging. There is impingement on the traversing left L2 nerve root. There is moderate to severe central stenosis on the current study. 2. At L2-L3 there are sequelae of bilateral laminectomies. There is a broad-based posterior disc protrusion/extrusion, similar compared to prior imaging. There is marked narrowing of the bilateral subarticular recesses with impingement on the traversing L3 nerve roots. There is severe central stenosis. 3. At L3-L4 there is facet arthropathy and there is a posterior disc protrusion/extrusion, more prominent compared to prior imaging. There is now severe compression of the thecal sac with severe central stenosis. 4. At L4-L5 there is facet arthropathy. There is a central and left-sided disc protrusion extending into the left neural foramen and far laterally with impingement on the exiting and extraforaminal left L4 nerve root. A right-sided disc protrusion extends far laterally with impingement on the extraforaminal right L4 nerve root. There is marked narrowing of the left subarticular recess and there is mild to moderate central stenosis. These findings have progressed compared to prior imaging. 5. The study redemonstrates facet arthropathy at L5-S1, with narrowing of the left neural foramen and subarticular recess with impingement on the exiting left L5 and traversing left S1 nerve roots.
== END 2022-06-05 13:24 | disposition home or self-care (01) ==
LOC: HO.MRI 13:23
PROVIDERS: PCP Internal Medicine; Visit Provider Internal Medicine
DX: M96.1 Postlaminectomy syndrome, not elsewhere classified (principal)
CPT/HCPCS: 72158; A9585

== ENCOUNTER 2022-06-17 08:54 | Outpatient (REF) | payer MEDICAID, SELFPAY ==
[2022-06-17 09:04] LABS: MANUAL DIFF FLAG NO
[2022-06-17 09:59] LABS: Basophils Percent Auto 0.3 % (0-2); Eosinophils Absolute Auto 0.2 X10*3/uL (0.0-0.4); Eosinophils Percent Auto 2.1 % (0-4); Hematocrit 42.9 % (42.0-52.0); Imm Gran Abs Auto 0.03 X10*3/uL (0.00-0.03); Imm Gran Pct Auto 0.4 % (0.0-0.4); Lymphocytes Absolute Auto 1.5 X10*3/uL (1.2-4.9); Lymphocytes Percent Auto 19.6 % (20-40); Mean Corpuscular HGB Conc 32.6 g/dl (31.0-36.0); Mean Corpuscular Hemoglobin 30.2 pg (27.0-33.0); Mean Corpuscular Volume 92.5 fL (80.0-98.0); Mean Platelet Volume 9.8 fL (9.4-12.4); Monocytes Absolute Auto 0.7 X10*3/uL (0.1-1.2); Monocytes Percent Auto 9.8 % (2-11); Neutrophils Absolute Auto 5.1 x10*3/uL (2.0-8.3); Neutrophils Percent Auto 67.8 % (45-73); Platelet Count 248 X10*3/uL (160-400); Red Blood Count 4.64 X10*6/uL (4.60-5.80); Red Cell Distribution Width 14.5 % (11.0-16.0); White Blood Count 7.6 X10*3/uL (4.8-10.8)
[2022-06-17 10:21] LABS: Alanine Aminotransferase 34 U/L (0-40); Aspartate Amino Transferase 18 U/L (5-37); C Reactive Protein 1.13 mg/dL (< or = 0.50); Estimated Glomerular Filt Rate > 60; Uric Acid 6.2 mg/dL (3.4-7.0)
[2022-06-17 10:49] LABS: Erythrocyte Sedimentation Rate 27 MM/HR (0-15)
== END 2022-06-17 08:55 | disposition home or self-care (01) ==
LOC: HO.LAB 08:54
PROVIDERS: PCP Internal Medicine; Visit Provider Nurse Practitioner Family
DX: M1A.9XX1 Chronic gout, unspecified, with tophus (tophi) (principal)
CPT/HCPCS: 36415; 82565; 84450; 84460; 84550; 85025; 85652; 86140

== ENCOUNTER → 2022-06-28 10:56 | Outpatient (BNVA) | payer MEDICAID, SELFPAY | PROVIDERS: PCP Internal Medicine; Visit Provider Nurse Practitioner Family | DX: M70.22 Olecranon bursitis, left elbow (principal); M1A.9XX1 Chronic gout, unspecified, with tophus (tophi); M05.9 Rheumatoid arthritis with rheumatoid factor, unspecified | CPT/HCPCS: 99212 ==

== ENCOUNTER 2022-07-08 10:58 | Emergency (ER) | payer MEDICAID, SELFPAY ==
[2022-07-08 11:52] VITALS: BP 132/89; PULSE 104; RESP 18; TEMP 36.3; O2SAT 96; BMI 42.3
--- NOTE | 2022-07-08 11:55 | ED.EAR ---
HPI - Ear Problem General Chief complaint: Ear Problems Stated complaint: l ear pain Time Seen by Provider: 07/08/22 12:08 Related Data Home Medications Medication Instructions Recorded Confirmed phenytoin sodium extended 100 mg 200 mg PO BID@0900,1600 02/07/20 05/24/22 capsule (Dilantin Extended) phenobarbital 97.2 mg tablet 194.4 mg PO BEDTIME 03/28/21 05/24/22 oxycodone 5 mg tablet 5 mg PO TID PRN Pain 06/11/21 05/24/22 pantoprazole 40 mg tablet,delayed 40 mg PO DAILY@0630 10/24/21 05/24/22 release apixaban 5 mg tablet (Eliquis) 5 mg PO BID 02/25/22 05/24/22 acetaminophen 500 mg tablet 1,000 mg PO Q8H PRN pain 03/03/22 05/24/22 (Tylenol Extra Strength) diclofenac sodium 1 % topical gel 4 g topical QID PRN arthritis pain 03/03/22 05/24/22 (Voltaren Arthritis Pain) phenytoin sodium extended 100 mg 300 mg PO BEDTIME 03/03/22 05/24/22 capsule prednisone 10 mg tablet 10 mg PO DAILY 06/28/22 Previous Rx's Medication Instructions Recorded cyclobenzaprine 10 mg tablet 10 mg PO Q8H #20 tabs 07/26/20 cane #1 ea 02/01/21 colchicine 0.6 mg tablet 0.6 mg PO BID #60 tabs 05/07/22 allopurinol 300 mg tablet 300 mg PO BID #180 tabs 06/13/22 gabapentin 100 mg capsule 200 mg PO BID #120 caps 06/28/22 amoxicillin 875 mg-potassium 1 tab PO BID #20 tabs 07/08/22 clavulanate 125 mg tablet Allergies Allergy/AdvReac Type Severity Reaction Status Date / Time Sulfa (Sulfonamide Allergy Severe DIFFICULTY Verified 07/08/22 11:57 Antibiotics) BREATHING, [SULFA (SULFONAMIDE RASH, ANTIBIOTICS)] rash, hypertension PMFSH Past Medical History Medical History Chronic tophaceous gout History of epilepsy HTN (hypertension) Lumbar radiculopathy Rheumatoid arthritis Rheumatoid arthritis Right leg DVT Sleep apnea Tachycardia Surgical History History of spinal surgery Hx of bariatric surgery Hx of exploratory laparotomy Family History Family History Maternal Uncle Colon cancer Paternal Aunt Breast cancer Social History Social History Household Members: Spouse Housing: Apartment 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 home: Yes ( disabled) Do you presently have visiting nurse or other home services: No Alcohol intake: never Patient Tobacco Use Status: Never used Tobacco e-Cigarette/Vaping Use: Never Used Advance Directives: No Advance Directives Information Provided: Yes service: No Current occupational status: disabled Physical Exam Vital Signs: Vital Signs: Last Vital Signs Temp 97.4 F 07/08/22 11:52 Pulse 104 H 07/08/22 11:52 Resp 18 07/08/22 11:52 BP 132/89 07/08/22 11:52 Pulse Ox 96 07/08/22 11:52 O2 Del Method Room Air 07/08/22 11:52 BMI result Body Mass Index 42.3 Course Course Course Narrative: RME: 46-year-old male with past medical history of sleep apnea, epilepsy, HTN, RA, complaining of left ear pain and popping at 06:00AM with associated rhinorrhea and myalgias. Clear rhinorrhea noted. Left TM with mild fluid and canal edema. Posterior oropharynx erythematous COVID/flu and rapid strep ordered Full HPI, ROS and PE to be performed by primary ED provider. Medical Decision Making Lab Data Labs: Lab Results 07/08/22 07/08/22 07/08/22 Range/Units 12:21 12:21 12:21 COVID-19 (CLEMENTINE) Negative (Negative) COVID-19 Clin Com See Note Influenza Type A (ROMANA) Negative (Negative) Influenza Type B (ROMANA) Negative (Negative) Influenza A & B Note See Note S. pyogenes GrpA ROMANA Negative (Negative) Discharge Plan Discharge Clinical Impression: Otitis media Qualifiers: Otitis media type: suppurative Chronicity: acute Laterality: left Recurrence: non-recurrent Spontaneous tympanic membrane rupture: with spontaneous rupture Qualified Code(s): H66.012 - Acute suppurative otitis media with spontaneous rupture of ear drum, left ear Patient Disposition: Home, Self-Care Instructions: Ear Infection (ED) Additional Instructions: Puede usar Tylenol o ibuprofeno seg?n las instrucciones del paquete seg?n sea necesario para el malestar. Debe evitar que le entre agua en los o?dos, evitar nadar o sumergir la anay bajo el agua. Regrese si tiene fiebre, empeora el dolor o supura del o?do, o si los s?ntomas persisten despu?s de completar el ciclo completo de antibi?ticos. Debe hacer un seguimiento con el especialista en o?do, nariz y garganta. Kunz nombre e informaci?n est?n incluidos en eugene instrucciones de milena. Prescriptions: New amoxicillin-pot clavulanate 875-125 mg tablet 1 tab PO BID Qty: 20 0RF No Action (DME) cane Device See Rx Instructions .Route Qty: 1 0RF Rx Instructions: As directed oxycodone 5 mg tablet 5 mg PO TID PRN (Reason: Pain) colchicine 0.6 mg tablet 0.6 mg PO BID Qty: 60 5RF allopurinol 300 mg tablet 300 mg PO BID Qty: 180 1RF Rx Instructions: take 300mg po BID to equal 600mg po daily gabapentin 100 mg capsule 200 mg PO BID Qty: 120 3RF phenytoin sodium extended [Dilantin Extended] 100 mg Capsule 200 mg PO BID@0900,1600 phenobarbital 97.2 mg tablet 194.4 mg PO BEDTIME cyclobenzaprine 10 mg tablet 10 mg PO Q8H Qty: 20 0RF phenytoin sodium extended 100 mg capsule 300 mg PO BEDTIME acetaminophen [Tylenol Extra Strength] 500 mg tablet 1,000 mg PO Q8H PRN (Reason: pain) diclofenac sodium [Voltaren Arthritis Pain] 1 % gel 4 g topical QID PRN (Reason: arthritis pain) Rx Instructions: apply to hands, single knee, ankle, foot; for foot includes sole/toes/top of foot pantoprazole 40 mg tablet,delayed release (DR/EC) 40 mg PO DAILY@0630 Eliquis 5 mg tablet 5 mg PO BID prednisone 10 mg tablet 10 mg PO DAILY Referrals: Jared Mckeon [Physician] - (Follow up in 2 weeks) Interventions: ED Discharge Assessment Last Done: 07/08/22 13:31 Discharge Date/Time: 07/08/22 13:32 Print Language: Gibraltarian
--- NOTE | 2022-07-08 12:19 | ED_ITS ---
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 today. He also reports a brown oily substance draining from his left ear as well as an intermittent whooshing sound. He denies any hearing loss or vertigo. He reports recent sinus pressure but denies any significant drainage from sinuses. He denies any fever, cough, or shortness of breath. He reports that since this morning his voice has become increasingly hoarse and he is also developing a sore throat. He has not taken any [id number] medications for his symptoms. Related Data Home Medications Medication Instructions Recorded Confirmed phenytoin sodium extended 100 mg 200 mg PO BID@0900,1600 02/07/20 05/24/22 capsule (Dilantin Extended) phenobarbital 97.2 mg tablet 194.4 mg PO BEDTIME 03/28/21 05/24/22 oxycodone 5 mg tablet 5 mg PO TID PRN Pain 06/11/21 05/24/22 pantoprazole 40 mg tablet,delayed 40 mg PO DAILY@0630 10/24/21 05/24/22 release apixaban 5 mg tablet (Eliquis) 5 mg PO BID 02/25/22 05/24/22 acetaminophen 500 mg tablet 1,000 mg PO Q8H PRN pain 03/03/22 05/24/22 (Tylenol Extra Strength) diclofenac sodium 1 % topical gel 4 g topical QID PRN arthritis pain 03/03/22 05/24/22 (Voltaren Arthritis Pain) phenytoin sodium extended 100 mg 300 mg PO BEDTIME 03/03/22 05/24/22 capsule prednisone 10 mg tablet 10 mg PO DAILY 06/28/22 Previous Rx's Medication Instructions Recorded cyclobenzaprine 10 mg tablet 10 mg PO Q8H #20 tabs 07/26/20 cane #1 ea 02/01/21 colchicine 0.6 mg tablet 0.6 mg PO BID #60 tabs 05/07/22 allopurinol 300 mg tablet 300 mg PO BID #180 tabs 06/13/22 gabapentin 100 mg capsule 200 mg PO BID #120 caps 06/28/22 amoxicillin 875 mg-potassium 1 tab PO BID #20 tabs 07/08/22 clavulanate 125 mg tablet Allergies Allergy/AdvReac Type Severity Reaction Status Date / Time Sulfa (Sulfonamide Allergy Severe DIFFICULTY Verified 07/08/22 11:57 Antibiotics) BREATHING, [SULFA (SULFONAMIDE RASH, ANTIBIOTICS)] rash, hypertension Review of Systems Review of Systems: Yes all other systems are reviewed and are negative [facility] Past Medical History Medical History Chronic tophaceous gout History of epilepsy HTN (hypertension) Lumbar radiculopathy Rheumatoid arthritis Rheumatoid arthritis Right leg DVT Sleep apnea Tachycardia Surgical History History of spinal surgery Hx of bariatric surgery Hx of exploratory laparotomy Family History Family History Maternal Uncle Colon cancer Paternal Aunt Breast cancer Social History Social History Household Members: Spouse Housing: Apartment Are you a primary post acute care nurse practitioner to a significant other at home: Yes ( disabled) Do you presently have visiting nurse or other home services: No Alcohol intake: never Patient Tobacco Use Status: Never used Tobacco e-Cigarette/Vaping Use: Never Used Advance Directives: No Advance Directives Information Provided: Yes service: No Current occupational status: disabled Physical Exam Vital Signs: Vital Signs: Last Vital Signs Temp 97.4 F 07/08/22 11:52 Pulse 104 H 07/08/22 11:52 Resp 18 07/08/22 11:52 BP 132/89 07/08/22 11:52 Pulse Ox 96 07/08/22 11:52 O2 Del Method Room Air 07/08/22 11:52 BMI result Body Mass Index 42.3 Appearance: Alert. Oriented X3. No acute distress. Head: normocephalic, atraumatic. Eyes: Pupils equal, round and reactive to light. ENT: External ears normal, no tragus or mastoid tenderness. Canals normal bilaterally. Left TM erythematous and opaque with visible perforation, no curre nt drainage visible, right TM normal. No sinus tenderness.Pharynx normal. No tonsillar swelling or exudate. Voice hoarse. Neck: Normal inspection. Neck supple. No cervical adenopathy. No masses. CVS: Normal heart rate and rhythm. Pulses normal. Respiratory: No respiratory distress. Breath sounds normal. Skin: Skin warm and dry. Normal skin color. Normal skin turgor. No rashes. Extremities: No lower extremity edema. No joint swelling. Neuro/psych: Oriented X 3. No motor deficit. No sensory deficit. CN II-XII intact. Normal speech and cognition. Medical Decision Making Medical Decision Making [facility] Narrative: 46-year-old male presenting with left ear pain with brown drainage this morning as well as hoarse voice and sore throat since this morning. Rapid strep, Covid and influenza all negative and oropharynx unremarkable, patient afebrile and has not taken any OTC medications today. No visible vesicles or bullae, no mastoid tenderness, no decreased hearing. Treating AOM with ten days of Augmentin as TM perforated, and advised patient to follow up with ENT in the next two weeks. Instructed patient to return for fever, increased drainage from ear, worsening pain, hearing loss. Instructed patient to avoid getting any water in his ear, or submerging head underwater. Differential Diagnosis Differential Diagnoses: The differential diagnosis associated with the presentation includes Covid-19, influenza, otitis media with effusion, otitis externa, bullous myringitis, herpes zoster, mastoiditis, labrynthitis Lab Data [facility] Lab Attestation statement: I reviewed the patient's lab results. Negative rapid strep, influenza, and Covid. Labs: Lab Results 07/08/22 07/08/22 07/08/22 Range/Units 12:21 12:21 12:21 COVID-19 (CLEMENTINE) Negative (Negative) COVID-19 Clin Com See Note Influenza Type A (ROMANA) Negative (Negative) Influenza Type B (ROMANA) Negative (Negative) Influenza A & B Note See Note S. pyogenes GrpA ROMANA Negative (Negative) Independent Interpretation Interpretation: Imaging deferred as patient did not have any sinus or mastoid tenderness, or tonsillar edema or asymmetry. Prescription Management I considered prescription management with: Antibiotic Treating AOM with Augmentin Discharge Plan Discharge Clinical Impression: Otitis media Patient Disposition: Home, Self-Care Instructions: Ear Infection (ED) Additional Instructions: Puede usar Tylenol o ibuprofeno seg?n las instrucciones del paquete seg?n sea necesario para el malestar. Debe evitar que le entre agua en los o?dos, evitar nadar o sumergir la anay bajo el agua. Regrese si tiene fiebre, empeora el dolor o supura del o?do, o si los s?ntomas persisten despu?s de completar el ciclo completo de antibi?ticos. Debe hacer un seguimiento con el especialista en o?do, nariz y garganta. Kunz nombre e informaci?n est?n incluidos en eugene instrucciones de milena. Prescriptions: New amoxicillin-pot clavulanate 875-125 mg tablet 1 tab PO BID Qty: 20 0RF No Action (DME) cane Device See Rx Instructions .Route Qty: 1 0RF Rx Instructions: As directed oxycodone 5 mg tablet 5 mg PO TID PRN (Reason: Pain) colchicine 0.6 mg tablet 0.6 mg PO BID Qty: 60 5RF allopurinol 300 mg tablet 300 mg PO BID Qty: 180 1RF Rx Instructions: take 300mg po BID to equal 600mg po daily gabapentin 100 mg capsule 200 mg PO BID Qty: 120 3RF phenytoin sodium extended [Dilantin Extended] 100 mg Capsule 200 mg PO BID@0900,1600 phenobarbital 97.2 mg tablet 194.4 mg PO BEDTIME cyclobenzaprine 10 mg tablet 10 mg PO Q8H Qty: 20 0RF phenytoin sodium extended 100 mg capsule 300 mg PO BEDTIME acetaminophen [Tylenol Extra Strength] 500 mg tablet 1,000 mg PO Q8H PRN (Reason: pain) diclofenac sodium [Voltaren Arthritis Pain] 1 % gel 4 g topical QID PRN (Reason: arthritis pain) Rx Instructions: apply to hands, single knee, ankle, foot; for foot includes sole/toes/top of foot pantoprazole 40 mg tablet,delayed release (DR/EC) 40 mg PO DAILY@0630 Eliquis 5 mg tablet 5 mg PO BID prednisone 10 mg tablet 10 mg PO DAILY Referrals: Jared Mckeon [Physician] - (Follow up in 2 weeks) Print Language: Togolese
[2022-07-08 12:43] LABS: IDNOW Serial# 08D9AD1C; Strep A Nucleic Acid Negative (Negative)
[2022-07-08 12:55] LABS: COVID-19 Test Negative (Negative); IDNOW Serial# 9DB6401D; IDNOW Serial# BCCEAD1C; Influenza A Negative (Negative); Influenza B2 Negative (Negative)
== END 2022-07-08 13:32 | disposition home or self-care (01) ==
PROVIDERS: Physician Assistant; Emergency Provider Emergency Medicine; PCP Internal Medicine
DX: H66.92 Otitis media, unspecified, left ear (principal); J02.9 Acute pharyngitis, unspecified; Z20.822 Contact with and (suspected) exposure to COVID-19
CPT/HCPCS: 87502; 87635; 87651; 99282; 99283

== ENCOUNTER 2022-07-12 09:01 | Outpatient (REF) | payer MEDICAID, SELFPAY ==
[2022-07-12 10:46] LABS: Erythrocyte Sedimentation Rate 44 MM/HR (0-15)
[2022-07-12 11:05] LABS: Blood Urea Nitrogen 10 mg/dL (9-16); C Reactive Protein 4.24 mg/dL (< or = 0.50); Estimated Glomerular Filt Rate > 60; Uric Acid 5.7 mg/dL (3.4-7.0)
== END 2022-07-12 09:02 | disposition home or self-care (01) ==
LOC: HO.LAB 09:01
PROVIDERS: PCP Internal Medicine; Visit Provider Nurse Practitioner Family
DX: M1A.9XX1 Chronic gout, unspecified, with tophus (tophi) (principal)
CPT/HCPCS: 36415; 82565; 84520; 84550; 85652; 86140

== ENCOUNTER → 2022-07-16 11:56 | Outpatient (BNVA) | payer MEDICAID, SELFPAY | PROVIDERS: PCP Internal Medicine; Visit Provider Nurse Practitioner Family | DX: M1A.9XX1 Chronic gout, unspecified, with tophus (tophi) (principal); M70.22 Olecranon bursitis, left elbow; M05.9 Rheumatoid arthritis with rheumatoid factor, unspecified; Z79.52 Long term (current) use of systemic steroids; Z79.899 Other long term (current) drug therapy | CPT/HCPCS: 99212 ==

== ENCOUNTER 2022-07-23 08:57 | Outpatient (REF) | payer MEDICAID, SELFPAY ==
[2022-07-23 10:08] LABS: Erythrocyte Sedimentation Rate 34 MM/HR (0-15)
[2022-07-23 11:25] LABS: Blood Urea Nitrogen 11 mg/dL (9-16); C Reactive Protein 2.35 mg/dL (< or = 0.50); Estimated Glomerular Filt Rate > 60; Uric Acid 5.6 mg/dL (3.4-7.0)
== END 2022-07-23 08:58 | disposition home or self-care (01) ==
LOC: HO.LAB 08:57
PROVIDERS: PCP Internal Medicine; Visit Provider Nurse Practitioner Family
DX: M1A.9XX1 Chronic gout, unspecified, with tophus (tophi) (principal)
CPT/HCPCS: 36415; 82565; 84520; 84550; 85652; 86140

== ENCOUNTER → 2022-07-26 09:57 | Outpatient (BNVA) | payer MEDICAID, SELFPAY | PROVIDERS: PCP Internal Medicine; Visit Provider Nurse Practitioner Family | DX: M1A.9XX1 Chronic gout, unspecified, with tophus (tophi) (principal); M05.9 Rheumatoid arthritis with rheumatoid factor, unspecified | CPT/HCPCS: 99212 ==

== ENCOUNTER 2022-08-01 08:54 | Outpatient (REF) | payer MEDICAID, SELFPAY ==
[2022-08-01 09:43] LABS: Blood Urea Nitrogen 9 mg/dL (9-16); Estimated Glomerular Filt Rate > 60; Uric Acid 5.8 mg/dL (3.4-7.0)
== END 2022-08-01 08:55 | disposition home or self-care (01) ==
LOC: HO.LAB 08:54
PROVIDERS: PCP Internal Medicine; Visit Provider Nurse Practitioner Family
DX: M1A.9XX1 Chronic gout, unspecified, with tophus (tophi) (principal)
CPT/HCPCS: 36415; 82565; 84520; 84550

== ENCOUNTER → 2022-08-02 08:56 | Outpatient (BNVA) | payer MEDICAID, SELFPAY | PROVIDERS: PCP Internal Medicine; Visit Provider Nurse Practitioner Family | DX: M1A.9XX1 Chronic gout, unspecified, with tophus (tophi) (principal); M05.9 Rheumatoid arthritis with rheumatoid factor, unspecified | CPT/HCPCS: 99212 ==

== ENCOUNTER 2022-08-16 09:00 | Outpatient (REF) | payer MEDICAID, SELFPAY ==
[2022-08-16 09:50] LABS: Blood Urea Nitrogen 10 mg/dL (9-16); C Reactive Protein 1.66 mg/dL (< or = 0.50); Estimated Glomerular Filt Rate > 60
[2022-08-16 10:16] LABS: Erythrocyte Sedimentation Rate 17 MM/HR (0-15)
[2022-08-16 10:20] LABS: Uric Acid 5.5 mg/dL (3.4-7.0)
== END 2022-08-16 09:01 | disposition home or self-care (01) ==
LOC: HO.LAB 09:00
PROVIDERS: PCP Internal Medicine; Visit Provider Nurse Practitioner Family
DX: M1A.9XX1 Chronic gout, unspecified, with tophus (tophi) (principal)
CPT/HCPCS: 36415; 82565; 84520; 84550; 85652; 86140

== ENCOUNTER → 2022-08-20 11:08 | Outpatient (BNVA) | payer MEDICAID, SELFPAY | PROVIDERS: PCP Internal Medicine; Visit Provider Internal Medicine Rheumatology | DX: M1A.9XX1 Chronic gout, unspecified, with tophus (tophi) (principal) | CPT/HCPCS: 96372; J0638 ==

== ENCOUNTER → 2022-08-26 09:06 | Outpatient (BNVA) | payer MEDICAID, SELFPAY | PROVIDERS: PCP Internal Medicine; Visit Provider Internal Medicine Rheumatology | DX: M1A.9XX1 Chronic gout, unspecified, with tophus (tophi) (principal); M06.9 Rheumatoid arthritis, unspecified; I82.4Z1 Acute embolism and thrombosis of unspecified deep veins of right distal lower extremity; Z79.52 Long term (current) use of systemic steroids; Z79.899 Other long term (current) drug therapy | CPT/HCPCS: 99212 ==

== ENCOUNTER → 2022-09-19 10:55 | Outpatient (BNVA) | payer MEDICAID, SELFPAY | PROVIDERS: PCP Internal Medicine; Visit Provider Internal Medicine Rheumatology | DX: M1A.9XX1 Chronic gout, unspecified, with tophus (tophi) (principal) | CPT/HCPCS: 96372; J0638 ==

== ENCOUNTER 2022-10-01 08:55 | Outpatient (REF) | payer MEDICAID, SELFPAY ==
[2022-10-01 09:48] LABS: Estimated Glomerular Filt Rate > 60; Uric Acid 5.9 mg/dL (3.4-7.0)
== END 2022-10-01 08:56 | disposition home or self-care (01) ==
LOC: HO.LAB 08:55
PROVIDERS: PCP Internal Medicine; Visit Provider Internal Medicine Rheumatology
DX: M1A.9XX1 Chronic gout, unspecified, with tophus (tophi) (principal)
CPT/HCPCS: 36415; 82565; 84550

== ENCOUNTER 2022-10-06 13:39 | Emergency (ER) | payer MEDICAID, SELFPAY ==
--- NOTE | ~2022-10-06 | CT_ITS ---
EXAMINATION: CT head/brain wo IV con CLINICAL INFORMATION: Reason for Exam headache, new onset, on eliquis COMPARISON: CT head without contrast 09/02/2019 TECHNIQUE: Contiguous axial imaging was performed from the skull base to vertex without intravenous contrast. Sagittal and coronal reformatted images were obtained. This CT examination was performed using dose optimization techniques as appropriate, variously including the following: * Automated exposure control * Adjustment of mA and/or kV according to patient size (this includes techniques or standardized protocols for targeted exams where dose is matched to indication/reason for exam; i.e. extremities or head) Use of iterative reconstruction technique DLP: 900.24 mGy-cm FINDINGS: No acute osseous or soft tissue abnormality. Stable hyperostotic appearance of the calvarium. The mastoid air cells and visualized portions of the paranasal sinuses are well aerated. There is no evidence of acute intracranial hemorrhage or territorial infarction. No abnormal mass effect or midline shift is seen. Johnson to white matter differentiation is well preserved. No extra-axial fluid collections are identified. No hydrocephalus. No significant volume loss. There is no abnormal attenuation within the brain parenchyma. CT/CT head/brain wo IV con IMPRESSION: No acute intracranial abnormality including hemorrhage, mass effect, hydrocephalus, or acute territorial edematous infarction.
[2022-10-06 13:45] VITALS: BP 174/96; PULSE 116; RESP 18; TEMP 36.5; O2SAT 98; BMI 42.6
--- NOTE | 2022-10-06 13:46 | ED.HA ---
HPI - Headache General Chief Complaint: Headache Stated Complaint: Headache/eye pain Time Seen by Provider: 10/06/22 16:06 Source: patient and interpreter translator Mode of arrival: ambulatory Limitations: language barrier History of Present Illness HPI Narrative: Patient is a 46 year old assigned male at with a history of HTN, gout, RA, RLE DVT, and epilepsy presenting to the emergency department today with a headache. Patient states that he has had a headache since 0100 on 10/05/2022. Patient denies any dizziness, lightheadedness, abdominal pain, nausea, vomiting, fever, chills, blurry vision, double vision, loss of vision, chest pain, difficulty breathing, shortness of breath, back pain, night sweats, pain with urination, increased urinary frequency, increased urinary urgency, blood in his urine or stool, syncope or a near syncopal episode, recent trauma or falls, bowel incontinence, bladder incontinence, bowel retention, bladder retention, or any other complaints at this time. MD elicited complaint: headache Onset (ago): hour(s) Onset description: gradually Severity: mild Pain scale (0-10): 4 Quality & Timing: aching and dull Exacerbating factors: none Treatments prior to arrival: none Related Data Home Medications Medication Instructions Recorded Confirmed phenytoin sodium extended 100 mg 200 mg PO BID@0900,1600 02/07/20 09/19/22 capsule (Dilantin Extended) phenobarbital 97.2 mg tablet 194.4 mg PO BEDTIME 03/28/21 09/19/22 oxycodone 5 mg tablet 5 mg PO TID PRN Pain 06/11/21 09/19/22 pantoprazole 40 mg tablet,delayed 40 mg PO DAILY@0630 10/24/21 09/19/22 release apixaban 5 mg tablet (Eliquis) 5 mg PO BID 02/25/22 09/19/22 acetaminophen 500 mg tablet 1,000 mg PO Q8H PRN pain 03/03/22 09/19/22 (Tylenol Extra Strength) diclofenac sodium 1 % topical gel 4 g topical QID PRN arthritis pain 03/03/22 09/19/22 (Voltaren Arthritis Pain) phenytoin sodium extended 100 mg 300 mg PO BEDTIME 03/03/22 09/19/22 capsule canakinumab (PF) 150 mg/mL 150 mg subcut Q4W 08/26/22 09/19/22 subcutaneous solution losartan 100 mg tablet 100 mg PO QAM 08/26/22 09/19/22 Previous Rx's Medication Instructions Recorded cyclobenzaprine 10 mg tablet 10 mg PO Q8H #20 tabs 07/26/20 cane #1 ea 02/01/21 colchicine 0.6 mg tablet 0.6 mg PO BID #60 tabs 05/07/22 allopurinol 100 mg tablet 100 mg PO DAILY #90 tabs 07/23/22 gabapentin 100 mg capsule 200 mg PO BID #120 caps 08/29/22 allopurinol 300 mg tablet 600 mg PO DAILY #180 tabs 10/04/22 prednisone 5 mg tablet See Rx Instructions .Route 10/04/22 .COMPLEX #66 tabs Allergies Allergy/AdvReac Type Severity Reaction Status Date / Time Sulfa (Sulfonamide Allergy Severe DIFFICULTY Verified 09/19/22 13:34 Antibiotics) BREATHING, [SULFA (SULFONAMIDE RASH, ANTIBIOTICS)] rash, hypertension Review of Systems Constitutional: Constitutional: Reports no additional constitutional complaints, Denies chills, Denies fever(s), Reports headache(s) and Denies night sweats Eyes: Eyes: Reports no additional eye complaints, Denies blurry vision, Denies change in vision, Denies diplopia, Denies eye discharge, Denies loss of vision and Denies eye pain ENT: Denies dizziness and Reports headache(s) Cardiovascular: Cardiovascular: Reports no additional cardiovascular complaints, Denies chest pain, Denies lightheadedness, Denies Loss of Consciousness and Denies dyspnea Respiratory: Respiratory: Reports no additional respiratory complaints and Denies dyspnea Gastrointestinal: Gastrointestinal: Reports no additional gastrointestinal complaints, Denies abdominal pain, Denies melena, Denies hematochezia, Denies change in bowel habits and Denies change in stool character Genitourinary: Genitourinary: Reports no additional male genitourinary complaints, Denies hematuria, Denies oliguria, Denies difficulty urinating, Denies dysuria, Denies urinary frequency, Denies urinary hesitancy, Denies urinary incontinence and Denies urinary urgency Musculoskeletal: Musculoskeletal: Reports no additional musculoskeletal complaints, Denies numbness and Denies tingling Neurologic: Denies dizziness, Reports headache(s), Denies loss of vision, Denies numbness and Denies tingling Psychiatric: Psychiatric: Reports no additional psychiatric complaints Endocrine: Endocrine: Reports no additional endocrine complaints Hematologic/Lymphatic: Hematologic/Lymphatic: Reports no additional hematologic/lymphatic complaints Allergic/Immunologic: Allergic/Immunologic: Reports no additional allergic/immunologic complaints FOR[facility]LY [facility] Past Medical History Attestation statement: The following information was validated with the patient. 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: Yes ( disabled) Do you presently have visiting nurse or other home services: No Alcohol intake: never Patient Tobacco Use Status: Never used Tobacco Smoked in Last 30 Days: No e-Cigarette/Vaping Use: Never Used Use of substances other than those prescribed or required for medical reasons: No Advance Directives: No Advance Directives Information Provided: No service: No Current occupational status: disabled Physical Exam Vital Signs: Vital Signs: Last Vital Signs Temp 98.0 F 10/06/22 16:25 Pulse 100 10/06/22 16:37 Resp 20 10/06/22 16:25 BP 144/90 H 10/06/22 16:25 Pulse Ox 96 10/06/22 16:37 O2 Del Method Room Air 10/06/22 16:37 BMI result Body Mass Index 42.6 Const: General: cooperative, no acute distress, alert and awake Nutritional Appearance: well nourished Orientation/consciousness: patient oriented x3 Limitations: no limitations HEENT: Head: Yes normal to inspection and Yes atraumatic Ears: hearing grossly normal bilaterally and external ears normal General nose exam: Normal external nose present, no nasal discharge noted and no epistaxis Face and sinus: Yes normal facial exam, No abrasion and No laceration Mouth: Normal oral and palatal mucosa present, no drooling and no muffled voice Eyes: General: appearance normal, both eyes and all related structures Periorbital: periorbital findings normal Eyelids: Yes eyelids normal Conjunctivae: conjunctivae normal Pupils: Equal, round and reactive pupils present EOM: EOMs intact bilaterally Neck: Neck: Yes normal visual inspection, Yes full ROM and Yes no lymphadenopathy Chest: Chest palpation & inspection: normal inspection of the chest Resp: Effort & Inspection: normal respiratory effort and able to speak in complete sentences GI: Inspection: Yes normal to inspection Neuro: General: patient oriented x3 and moves all extremities Cranial nerves: Yes Equal, round and reactive pupils present Cognition (Neuro): normal cognition Motor exam (neuro): 5/5 motor strength present throughout Sensory Exam: Normal double simultaneous stimulation for sensation Coordination: [id number] test normal Extrem: General: Yes normal to inspection, Yes full ROM and Yes capillary refill normal Psych: Appearance: grossly normal Mental Status: mental status grossly normal Affect: normal affect Attitude: cooperative Thought process: Normal thought process present Thought content: Normal thought content present Insight: Good insight present (Psych) Course Course Course Narrative: This is an RME: Additional HPI, ROS, PE not included below will be deferred to primary provider. Patient is a 46-year-old male presents emergency department for evaluation of frontal headache with onset last night, constant since onset, associated photophobia, unrelieved with tylenol. He is anticoagulated with Eliquis due to history of DVT, medication compliance. Denies history of headaches/ migraines. Denies injury or head strike. No focal neurological deficits Plan: CT head given new onset headache with anticoagulation, labs Medications Administered Discontinued Medications Generic Name Dose Route Start Last Admin Trade Name Sherlyn PRN Reason Stop Dose Admin Acetaminophen/Butalbital/Caffeine 1 tab 10/06/22 16:29 10/06/22 17:08 Butalb/Acetamin/Caff 50/325/40 Tablet PO 10/06/22 16:30 1 tab ONCE ONE Administration Diphenhydramine HCl 50 mg 10/06/22 16:29 10/06/22 17:08 Diphenhydramine Hcl 50 Mg/Ml Vial IM 10/06/22 16:30 50 mg ONCE ONE Administration Medical Decision Making Medical Decision Making MDM Narrative: Patient is a 46 year old assigned male at with a history of right leg DVT (on Eliquis), HTN, and RA, presenting to the emergency department today with a headache. Patient's physical exam was unremarkable. Patient's blood work was unremarkable. Patient's head CT showed no acute process. I explained my physical exam findings as well as all test results to the patient. I answered all questions asked by the patient. Patient received Fiorcet and Benadryl which he stated helped his symptoms significantly. I stressed the importance of the patient taking his medication as prescribed. I stressed the importance of the patient following up with his primary care provider. I stressed the importance of the patient returning to the emergency department immediately if his symptoms were to worsen or if he were to develop any dizziness, shortness of breath, difficulty breathing, chest pain, blurry vision, loss of vision, nausea, vomiting, abdominal pain, fever, chills, back pain, or any other complaints. Patient verbalized agreement and understanding with this treatment plan and discharge. Differential Diagnosis Differential Diagnoses: The differential diagnosis associated with the presentation includes Migraine Cluster headache Tension headache Admission/Observation Consideration of admission/observation: Escalation of care including admission/observation considered Patient would have been admitted to the hospital had his work up had any findings where hospital admission was appropriate and his clinical presentation warranted hospital admission. Lab Data MDM Lab Attestation statement: I reviewed the patient's lab results. My interpretation of these studies and their corresponding values is that they are grossly normal. 10/06/22 14:16 10/06/22 14:16 Labs: Lab Results 10/06/22 10/06/22 10/06/22 Range/Units 14:16 14:16 14:16 WBC 6.7 (4.8-10.8) X10*3/uL RBC 4.53 L (4.60-5.80) X10*6/uL Hgb 14.9 (14.0-18.0) g/dl Hct 43.3 (42.0-52.0) % MCV 95.6 (80.0-98.0) fL MCH 32.9 (27.0-33.0) pg MCHC 34.4 (31.0-36.0) g/dl RDW 13.8 (11.0-16.0) % Plt Count 213 (160-400) X10*3/uL MPV 9.8 (9.4-12.4) fL Immature Gran % (Auto) 0.3 (0.0-0.4) % Neut % (Auto) 74.3 H (45-73) % Lymph % (Auto) 17.1 L (20-40) % [place] % (Auto) 6.5 (2-11) % Eos % (Auto) 1.5 (0-4) % Baso % (Auto) 0.3 (0-2) % Lymph # (Auto) 1.2 (1.2-4.9) X10*3/uL [place] # (Auto) 0.4 (0.1-1.2) X10*3/uL Eos # (Auto) 0.1 (0.0-0.4) X10*3/uL Baso # (Auto) 0.0 (0.0-0.2) X10*3/uL Abs Immat Gran (auto) 0.02 (0.00-0.03) X10*3/uL Absolute Neuts (auto) 5.0 (2.0-8.3) x10*3/uL Absolute Nucleated RBC 0.000 (0.0-0.012) X10*3/uL Nucleated RBC % (auto) 0.0 (0.0-0.2) /100WBC PT 12.3 (10.0-13.1) SEC INR 1.1 (0.9-1.1) Sodium 141 (135-145) mmol/L Potassium 3.8 (3.3-5.1) mmol/L Chloride 102 (96-108) mmol/L Carbon Dioxide 30 H (22-29) mmol/L Anion Gap 13 (12-20) BUN 10 (9-16) mg/dL Creatinine 0.87 (0.5-1.4) mg/dL Estim Creat Clear Calc 146.5 Estimated GFR > 60 Random Glucose 122 H (60-115) mg/dL Calcium 10.2 (8.4-10.2) mg/dL Total Bilirubin 0.3 (0.0-1.0) mg/dL AST 21 (5-37) U/L ALT 34 (0-40) U/L Alkaline Phosphatase 105 (39-117) U/L Total Protein 7.5 (6.5-8.0) g/dL Albumin 4.2 (3.5-5.0) g/dL Independent Interpretation I performed an independent interpretation of an: CT Scan Interpretation: My interpretation is in agreement with the radiologist's impression of this imaging study. EXAMINATION: ?CT head/brain wo IV con CLINICAL INFORMATION: Reason for Exam headache, new onset, on eliquis COMPARISON: CT head without contrast 09/02/2019 TECHNIQUE: Contiguous axial imaging was performed from the skull base to vertex without intravenous contrast. Sagittal and coronal reformatted images were obtained. This CT examination was performed using dose optimization techniques as appropriate, variously including the following: *? Automated exposure control *? Adjustment of mA and/or kV according to patient size (this includes techniques or standardized protocols for targeted exams where dose is matched to indication/reason for exam; i.e. extremities or head) Use of iterative reconstruction technique DLP: 900.24 mGy-cm? FINDINGS: No acute osseous or soft tissue abnormality. Stable hyperostotic appearance of the calvarium. The mastoid air cells and visualized portions of the paranasal sinuses are well aerated. There is no evidence of acute intracranial hemorrhage or territorial infarction. No abnormal mass effect or midline shift is seen. Johnson to white matter differentiation is well preserved. No extra-axial fluid collections are identified. No hydrocephalus. No significant volume loss. There is no abnormal attenuation within the brain parenchyma. ? CT/CT head/brain wo IV con IMPRESSION: ? No acute intracranial abnormality including hemorrhage, mass effect, hydrocephalus, or acute territorial edematous infarction. Dictated By: Anson Stacy Signed By: Electronically signed by Anson?Tawanna 10/06/22 8596 Radiology Impression Discussion of test interpretation with radiology: I have reviewed the radiologist's reading. Chronic Conditions Patient?s care impacted by: Hypertension Discharge Plan Discharge Clinical Impression: Migraine Patient Disposition: Home, Self-Care Instructions: Migraine Headache (ED) Additional Instructions: Follow up with your primary care provider. Return to the emergency department immediately if your symptoms worsen or if you develop any dizziness, shortness of breath, difficulty breathing, chest pain, blurry vision, loss of vision, nausea, vomiting, abdominal pain, fever, chills, back pain, or any other complaints. Prescriptions: No Action (DME) cane Device See Rx Instructions .Route Qty: 1 0RF Rx Instructions: As directed oxycodone 5 mg tablet 5 mg PO TID PRN (Reason: Pain) colchicine 0.6 mg tablet 0.6 mg PO BID Qty: 60 5RF allopurinol 100 mg tablet 100 mg PO DAILY Qty: 90 3RF Rx Instructions: To be taken with the twice a day 300 mg allopurinol tablets -total daily dose 700 mg gabapentin 100 mg capsule 200 mg PO BID Qty: 120 2RF prednisone 5 mg tablet See Rx Instructions .ROUTE .COMPLEX Qty: 66 3RF Rx Instructions: 4 daily for 3 days, then 2 daily allopurinol 300 mg tablet 600 mg PO DAILY Qty: 180 2RF Rx Instructions: take two 300mg po with one 100mg to equal 700mg po daily phenytoin sodium extended [Dilantin Extended] 100 mg Capsule 200 mg PO BID@0900,1600 phenobarbital 97.2 mg tablet 194.4 mg PO BEDTIME cyclobenzaprine 10 mg tablet 10 mg PO Q8H Qty: 20 0RF phenytoin sodium extended 100 mg capsule 300 mg PO BEDTIME acetaminophen [Tylenol Extra Strength] 500 mg tablet 1,000 mg PO Q8H PRN (Reason: pain) diclofenac sodium [Voltaren Arthritis Pain] 1 % gel 4 g topical QID PRN (Reason: arthritis pain) Rx Instructions: apply to hands, single knee, ankle, foot; for foot includes sole/toes/top of foot pantoprazole 40 mg tablet,delayed release (DR/EC) 40 mg PO DAILY@0630 Eliquis 5 mg tablet 5 mg PO BID losartan 100 mg tablet 100 mg PO QAM canakinumab (PF) 150 mg/mL solution 150 mg subcut Q4W Referrals: Shi Lancaster MD [Primary Care Provider] - Stand Alone Forms: Work/School Release Interventions: ED Discharge Assessment Last Done: 10/06/22 17:17 Discharge Date/Time: 10/06/22 17:19 Print Language: French
[2022-10-06 14:20] LABS: MANUAL DIFF FLAG NO
[2022-10-06 14:22] LABS: Basophils Percent Auto 0.3 % (0-2); Eosinophils Absolute Auto 0.1 X10*3/uL (0.0-0.4); Eosinophils Percent Auto 1.5 % (0-4); Hematocrit 43.3 % (42.0-52.0); Hemoglobin 14.9 g/dl (14.0-18.0); Imm Gran Abs Auto 0.02 X10*3/uL (0.00-0.03); Imm Gran Pct Auto 0.3 % (0.0-0.4); Lymphocytes Absolute Auto 1.2 X10*3/uL (1.2-4.9); Lymphocytes Percent Auto 17.1 % (20-40); Mean Corpuscular HGB Conc 34.4 g/dl (31.0-36.0); Mean Corpuscular Hemoglobin 32.9 pg (27.0-33.0); Mean Corpuscular Volume 95.6 fL (80.0-98.0); Mean Platelet Volume 9.8 fL (9.4-12.4); Monocytes Absolute Auto 0.4 X10*3/uL (0.1-1.2); Monocytes Percent Auto 6.5 % (2-11); Neutrophils Percent Auto 74.3 % (45-73); Platelet Count 213 X10*3/uL (160-400); Red Blood Count 4.53 X10*6/uL (4.60-5.80); Red Cell Distribution Width 13.8 % (11.0-16.0); White Blood Count 6.7 X10*3/uL (4.8-10.8)
[2022-10-06 14:27] LABS: INTERNATIONAL NORM RATIO 1.1 (0.9-1.1); Prothrombin Time 12.3 SEC (10.0-13.1)
[2022-10-06 15:15] LABS: Alanine Aminotransferase 34 U/L (0-40); Albumin Level 4.2 g/dL (3.5-5.0); Alkaline Phosphatase 105 U/L (39-117); Anion Gap 13 (12-20); Aspartate Amino Transferase 21 U/L (5-37); Bilirubin Total 0.3 mg/dL (0.0-1.0); Blood Urea Nitrogen 10 mg/dL (9-16); Calcium 10.2 mg/dL (8.4-10.2); Carbon Dioxide 30 mmol/L (22-29); Chloride 102 mmol/L (96-108); Creatinine Clr Calc Pharmacy 146.5; Estimated Glomerular Filt Rate > 60; Glucose Random 122 mg/dL (60-115); Potassium 3.8 mmol/L (3.3-5.1); Sodium 141 mmol/L (135-145); Total Protein 7.5 g/dL (6.5-8.0)
[2022-10-06 16:25] VITALS: BP 144/90; RESP 20; TEMP 36.7
[2022-10-06 16:37] VITALS: PULSE 100; O2SAT 96
[2022-10-06] MEDS: Butalb/Acetamin/Caff 50/325/40 TABLET 1 TAB PO (17:08)
[2022-10-06] MEDS: diphenhydrAMINE HCL 50 MG/ML VIAL IM (17:08)
== END 2022-10-06 17:19 | disposition home or self-care (01) ==
PROVIDERS: Nurse Practitioner Family; Emergency Provider Emergency Medicine; PCP Internal Medicine
DX: G43.909 Migraine, unspecified, not intractable, without status migrainosus (principal); I10 Essential (primary) hypertension; Z86.718 Personal history of other venous thrombosis and embolism; Z79.899 Other long term (current) drug therapy
CPT/HCPCS: 36415; 70450; 80053; 85025; 85610; 96372; 99284; J1200

== ENCOUNTER 2022-10-07 09:59 | Outpatient (AMB) | payer MEDICAID, SELFPAY ==
[2022-10-07 10:05] VITALS: BP 152/90; PULSE 114; TEMP 37.2; O2SAT 95; BMI 45.0
--- NOTE | 2022-10-07 10:05 | A.OFFVIS_ITS ---
Intake Vital Signs 10/07/22 10:05 Height 5 ft 10 in Weight 313 lb 15.012 oz BMI 45.0 BP 152/90 H Blood Pressure Location Rt brachial Position Sitting Pulse 114 H Pulse Source Pulse Oximeter Temp 99.0 F Temp Source Skin Pulse Oximetry (%) 95 Intake Visit Reasons: Gout Intake Note: * Pt seen today for gout follow up. Denies recent flare ups * C/o pain in left hip , knees and feet. * Seen in ED yesterday for headache. 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 He remains on 700 mg daily allopurinol, colchicine 0.6 b.i.d., monthly canakinumab injection, and currently at 10 mg daily prednisone. He had called us last week with some flare-up of knee pain. This was after having to walk up 6 flights of stairs to attend to his business in his apartment. The elevator was broken. Today he requests a letter documenting his illness so he does not have to walk up and down the stairs again. The increase in prednisone for a few days did help his knees somewhat. There is minimal discomfort in the wrists and the ankle. He does not seem to have any side effects with the current dose of allopurinol and colchicine. There was a question on his refill from the pharmacy last Friday. The insurance it appears was questioning why he needed so much allopurinol. I did speak with the pharmacist and the patient says it is straightened out now. [facility] Medical History Chronic tophaceous gout History of epilepsy HTN (hypertension) Lumbar radiculopathy Rheumatoid arthritis Rheumatoid arthritis Right leg DVT Sleep apnea Tachycardia Surgical History History of spinal surgery Hx of bariatric surgery Hx of exploratory laparotomy Family History Maternal Uncle Colon cancer Paternal Aunt Breast cancer Social History Household Members: Spouse Housing: Apartment Are you a primary day care home provider to a significant other at home: Yes ( disabled) Do you presently have visiting nurse or other home services: No Alcohol intake: never Patient Tobacco Use Status: Never used Tobacco e-Cigarette/Vaping Use: Never Used service: No Current occupational status: disabled Review of Systems Const Details: Negative for appetite change, weight change, fever, chills, malaise and fatigue Eyes Details: He was having headache problems last week and did visit the ER on Friday. The headache seems better now. CT scan of the head was negative. Negative for vision change, dry eyes and dizziness Card Details: Negative chest pain, edema and syncope Resp Details: Negative for SOB, cough and wheezing GI Details: Negative indigestion/heartburn, nausea, abdominal pain, bowel changes, diarrhea, constipation and bloody stool. Endo Details: Negative for polyuria and polydypsia Anthony/Lymph Details: Negative for excessive bruising or bleeding. Physical Exam Vital Signs: Last Vital Signs Temp 99.0 F 10/07/22 10:05 Pulse 114 H 10/07/22 10:05 BP 152/90 H 10/07/22 10:05 Pulse Ox 95 10/07/22 10:05 BMI result Body Mass Index 45.0 APPEARANCE: Patient in no acute distress EYES no redness, pupils equal and reactive to light, eyelids normal EXTREMITIES: No edema, no calf tenderness, normal peripheral pulses. JOINT EXAM: ?? Hands: LEFT: Slight thickness and tenderness at MCP 2, no warmth or erythema. No other swelling or tenderness throughout the hand. Range of motion is intact. ? RIGHT:? Normal pain-free range of motion without swelling, tenderness, increased warmth or erythema.? Slight bony enlargement in the 4th PIP.? 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 Wrists:? LEFT:? No pain with flexion and extension.? No tenderness, swelling increased warmth or erythema. ? RIGHT:?? limited flexion and extension to about 30 degrees with some discomfort.? Questionable soft tissue swelling but no tenderness, erythema or increased warmth. Elbows: LEFT:? Normal? pain-free range of motion.? No swelling, erythema, warmth or tenderness.? There is a thickened and nodular olecranon bursa.? No tenderness. ? RIGHT:? Normal pain free range of motion without swelling, increased warmth or erythema.? Shoulders:??LEFT:? Normal pain-free range of motion. ? RIGHT:? Normal pain-free range of motion. Knees:? Right:? Mild patellofemoral crepitus and slight pain with extremes of normal flexion extension.? There is mild medial compartment tenderness without redness or effusion.? Left:? Full range of motion without pain.? There is some mild patellofemoral crepitus and medial tenderness but no redness or effusion. Ankles: LEFT:? Unable to perform plantar flexion or dorsiflexion, this is chronic.? No tenderness swelling, erythema or increased warmth noted. ? RIGHT: Normal range of motion.? No swelling, tenderness, erythema or increased warmth noted. ? Feet:? LEFT:? Unable to perform plantar flexion or dorsiflexion. No tenderness, swelling, erythema or increased warmth. ? RIGHT:? Full range of motion.? No tenderness, swelling, erythema or increased warmth. Results Reviewed Results Reviewed: Laboratory Tests 08/16/22 08/16/22 10/01/22 09:11 09:11 09:03 WBC Hgb ESR 17 H Creatinine Uric Acid 5.9 C-Reactive Protein 1.66 H 10/06/22 10/06/22 14:16 14:16 WBC 6.7 Hgb 14.9 ESR Creatinine 0.87 Uric Acid C-Reactive Protein Assessment & Plan Assessment & Plan (1) Chronic tophaceous gout: Comment: 02/2022: MSU crystals in aspirate of left olecranon 02/2022 Started on allopurinol, colchicine, prednisone 08/20/2022 Canakinumab add for acute gout prevention Code(s): M1A.9XX1 - Chronic gout, unspecified, with tophus (tophi) (2) retirement use of drug: Code(s): Z79.899 - Other longterm (current) drug therapy (3) Secondary osteoarthritis of ankles, bilateral: Comment: worse on the left. Due to tophaceous gout Code(s): M19.271 - Secondary osteoarthritis, right ankle and foot; M19.272 - Secondary osteoarthritis, left ankle and foot Plan Gout with good control of hyperuricemia on this dose of allopurinol. He does not seem to have any side effects with it. It should be continued as above. The recent flare-up of pain in his knees I think is from osteoarthritis likely due to the increased use of the stairs. He had not been using stairs for years, previously mostly because of low back OA. We will switch him to the 5 mg prednisone tablets and have him take 10 mg alternating with 5 mg daily. He will stay on the 700 mg daily allopurinol, colchicine 0.6 b.i.d., and monthly canakinumab. We will aim for follow-up in about 2 months with lab work before that visit. I gave him a note documenting has osteoarthritis of the knees to give to his landlord. 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
== END 2022-10-07 10:58 | disposition home or self-care (01) ==
PROVIDERS: PCP Internal Medicine; Visit Provider Internal Medicine Rheumatology
DX: M1A.9XX1 Chronic gout, unspecified, with tophus (tophi) (principal); Z79.899 Other long term (current) drug therapy; M19.271 Secondary osteoarthritis, right ankle and foot; M19.272 Secondary osteoarthritis, left ankle and foot
CPT/HCPCS: 99213

== ENCOUNTER → 2022-10-07 09:59 | Outpatient (BNVA) | payer MEDICAID, SELFPAY | PROVIDERS: PCP Internal Medicine; Visit Provider Internal Medicine Rheumatology | DX: M1A.9XX1 Chronic gout, unspecified, with tophus (tophi) (principal); M19.271 Secondary osteoarthritis, right ankle and foot; M19.272 Secondary osteoarthritis, left ankle and foot; Z79.899 Other long term (current) drug therapy | CPT/HCPCS: 99212 ==

== ENCOUNTER 2022-10-21 11:17 | Outpatient (REF) | payer MEDICAID, SELFPAY ==
[2022-10-21 13:31] LABS: Phenytoin Dilantin 28.3 ug/mL (10.0-20.0)
== END 2022-10-21 11:18 | disposition home or self-care (01) ==
LOC: HO.LAB 11:17
PROVIDERS: PCP Internal Medicine; Visit Provider Psychiatry & Neurology Neurology
DX: R56.1 Post traumatic seizures (principal)
CPT/HCPCS: 36415; 80185

== ENCOUNTER 2022-10-22 11:00 | Outpatient (AMB) | payer MEDICAID, SELFPAY ==
--- NOTE | 2022-10-22 16:48 | AM.OFFVISNUR ---
Intake Intake Visit Reasons: Ilaris Legislative Aide Required: No Allergies Sulfa (Sulfonamide Antibiotics) [SULFA (SULFONAMIDE ANTIBIOTICS)] Allergy (Severe, Verified 10/22/22 16:48) DIFFICULTY BREATHING, RASH, rash, hypertension Nursing Note Patient here for continued Ilaris therapy. Patient has given consent for administration. Ilaris administered on left arm. Patient tolerated injection well. Office Meds canakinumab (PF) Performing Provider: Sundeep Benson MD Administered by: uSdha Calvert RN on 10/22/22 16:55 Dose Route Admin Location Lot Number Expiration Date [facility] [employer] 150 mg subcut left arm [id number] 04/16/25 4891-4928-66 [facility] Coding Level of Care Code Procedure Only Diagnoses Assessment & Plan Assessment & Plan Orders: Orders AMB Canakinumab Injection Practice Supplied Today M1A.9XX1 - Chronic gout, unspecified, with tophus (tophi)
== END 2022-10-22 11:32 | disposition home or self-care (01) ==
PROVIDERS: PCP Internal Medicine; Visit Provider Internal Medicine Rheumatology
DX: M1A.9XX1 Chronic gout, unspecified, with tophus (tophi) (principal)

== ENCOUNTER → 2022-10-22 11:00 | Outpatient (BNVA) | payer MEDICAID, SELFPAY | PROVIDERS: PCP Internal Medicine; Visit Provider Internal Medicine Rheumatology | DX: M1A.9XX1 Chronic gout, unspecified, with tophus (tophi) (principal) | CPT/HCPCS: 96372; J0638 ==

== ENCOUNTER 2022-11-26 09:58 | Outpatient (AMB) | payer MEDICAID, SELFPAY ==
--- NOTE | 2022-11-26 11:53 | AM.OFFVISNUR ---
Intake Intake Visit Reasons: Ilaris Allergies Sulfa (Sulfonamide Antibiotics) [SULFA (SULFONAMIDE ANTIBIOTICS)] Allergy (Severe, Verified 10/22/22 16:48) DIFFICULTY BREATHING, RASH, rash, hypertension Nursing Note Patient here for monthly Ilaris therapy. Patient states there was not any problems with last injection, and denies any new allergies. Patient is given Ilaris on left upper arm. Patient tolerated this well. Office Meds canakinumab (PF) 150 mg/mL subcutaneous solution Performing Provider: Sundeep Benson MD Performing Location: [facility] Rhe[facility]ology Administered by: Sudha Calvert RN on 11/26/22 12:00 Dose Route Admin Location Dispensed Lot Number Expiration Date [facility] [employer] 150 mg subcut left arm 1 mL [id number] 04/16/25 1485-1112-28 [facility] Coding Level of Care Code Procedure Only Assessment & Plan Assessment & Plan Orders: Orders AMB Canakinumab Injection Practice Supplied Today M1A.9XX1 - Chronic gout, unspecified, with tophus (tophi)
== END 2022-11-26 10:15 | disposition home or self-care (01) ==
PROVIDERS: PCP Internal Medicine; Visit Provider Internal Medicine Rheumatology
DX: M1A.9XX1 Chronic gout, unspecified, with tophus (tophi) (principal)

== ENCOUNTER → 2022-11-26 09:58 | Outpatient (BNVA) | payer MEDICAID, SELFPAY | PROVIDERS: PCP Internal Medicine; Visit Provider Internal Medicine Rheumatology | DX: M1A.9XX1 Chronic gout, unspecified, with tophus (tophi) (principal) | CPT/HCPCS: 96372; J0638 ==

== ENCOUNTER 2022-12-04 08:56 | Outpatient (REF) | payer MEDICAID, SELFPAY ==
[2022-12-04 10:58] LABS: Anion Gap 13 (12-20); Blood Urea Nitrogen 15 mg/dL (9-16); Calcium 10.4 mg/dL (8.4-10.2); Carbon Dioxide 29 mmol/L (22-29); Chloride 103 mmol/L (96-108); Estimated Glomerular Filt Rate > 60; Glucose Random 112 mg/dL (60-115); Potassium 3.4 mmol/L (3.3-5.1); Sodium 142 mmol/L (135-145); Uric Acid 6.5 mg/dL (3.4-7.0)
== END 2022-12-04 08:57 | disposition home or self-care (01) ==
LOC: HO.LAB 08:56
PROVIDERS: PCP Internal Medicine; Visit Provider Internal Medicine Rheumatology
DX: Z79.899 Other long term (current) drug therapy (principal)
CPT/HCPCS: 36415; 80048; 84550

== ENCOUNTER 2022-12-08 11:21 | Emergency (ER) | payer MEDICAID, SELFPAY ==
--- NOTE | ~2022-12-08 | XR_ITS ---
EXAMINATION:XR ankle RT min 3V, XR foot RT min 3V CLINICAL INFORMATION: Reason for Exam fall COMPARISON: None TECHNIQUE: Frontal and lateral views of the left ankle. 2 views, 3 views left foot frontal lateral oblique. FINDINGS: Degenerative osteoarthritic changes involving the first metatarsophalangeal joint, advanced degenerative arthritis of the intertarsal and tarsometatarsal joints. Small inferior enlarged posterior calcaneal spurs. Deformity likely an old healed fracture of the diaphysis fourth metatarsal. Ankle mortise is preserved. Talar dome is intact. Mild soft tissue swelling around medial malleolus. Tibial plafond and talar dome are normal. XR/XR foot RT min 3V IMPRESSION: * No radiographic evidence of acute fracture. * Underlying advanced degenerative osteoarthritis. * Soft tissue swelling around medial malleolus. * Deformity likely old healed fracture of the fourth metatarsal.
--- NOTE | ~2022-12-08 | XR_ITS ---
EXAMINATION: XR tibia fibula RT 2V, XR knee RT 3V CLINICAL INFORMATION: Reason for Exam fall COMPARISON: None available at the time of this dictation. TECHNIQUE: Frontal lateral and both obliques right knee 4 views. Frontal and lateral tibia-fibula 2 views. FINDINGS: BONES: No fracture or dislocation is present. JOINTS: Narrowing of joint spaces and developed osteophytes from the edges of articular surfaces suggest degenerative osteoarthritis. There is a small knee joint effusion. SOFT TISSUE: Normal XR/XR knee RT 3V IMPRESSION: Early advanced tricompartment degenerative osteoarthritis involving primarily medial compartment. Small knee joint effusion. No fracture.
--- NOTE | ~2022-12-08 | XR_ITS ---
EXAMINATION: XR tibia fibula RT 2V, XR knee RT 3V CLINICAL INFORMATION: Reason for Exam fall COMPARISON: None available at the time of this dictation. TECHNIQUE: Frontal lateral and both obliques right knee 4 views. Frontal and lateral tibia-fibula 2 views. FINDINGS: BONES: No fracture or dislocation is present. JOINTS: Narrowing of joint spaces and developed osteophytes from the edges of articular surfaces suggest degenerative osteoarthritis. There is a small knee joint effusion. SOFT TISSUE: Normal XR/XR tibia fibula RT 2V IMPRESSION: Early advanced tricompartment degenerative osteoarthritis involving primarily medial compartment. Small knee joint effusion. No fracture.
--- NOTE | ~2022-12-08 | XR_ITS ---
EXAMINATION: XR SHOULDER , RIGHT CLINICAL INFORMATION: Fall COMPARISON: None available at the time of this dictation. TECHNIQUE: 3 views frontal lateral and scapular Y view of the shoulder. Total of 3views FINDINGS: BONES: There is no fracture or dislocation, no osteolytic or osteoblastic lesion. JOINTS: Glenohumeral joint is properly positioned. There is mild degenerative osteoarthritis of the acromioclavicular joint. SOFT TISSUE AND INCLUDED LUNG: Normal. XR/XR shoulder RT min 2V IMPRESSION: No fracture or dislocation. Except for mild DJD of the AC joint, exam is normal.
--- NOTE | ~2022-12-08 | XR_ITS ---
EXAMINATION: XR HIP, RIGHT CLINICAL INFORMATION: Fall COMPARISON: None available. TECHNIQUE: 2 views right hip and AP pelvis. FINDINGS: No fracture. Alignment is anatomic. Hip joint space is maintained. Soft tissues are unremarkable. XR/XR hip RT w PEL1V IMPRESSION: No radiographic evidence of acute fracture.
--- NOTE | ~2022-12-08 | XR_ITS ---
EXAMINATION:XR ankle RT min 3V, XR foot RT min 3V CLINICAL INFORMATION: Reason for Exam fall COMPARISON: None TECHNIQUE: Frontal and lateral views of the left ankle. 2 views, 3 views left foot frontal lateral oblique. FINDINGS: Degenerative osteoarthritic changes involving the first metatarsophalangeal joint, advanced degenerative arthritis of the intertarsal and tarsometatarsal joints. Small inferior enlarged posterior calcaneal spurs. Deformity likely an old healed fracture of the diaphysis fourth metatarsal. Ankle mortise is preserved. Talar dome is intact. Mild soft tissue swelling around medial malleolus. Tibial plafond and talar dome are normal. XR/XR ankle RT min 3V IMPRESSION: * No radiographic evidence of acute fracture. * Underlying advanced degenerative osteoarthritis. * Soft tissue swelling around medial malleolus. * Deformity likely old healed fracture of the fourth metatarsal.
--- NOTE | ~2022-12-08 | XR_ITS ---
EXAMINATION: XR LUMBAR SPINE CLINICAL INFORMATION: Fall COMPARISON: [facility] TECHNIQUE: Frontal lateral and coned-down L5-S1 frontal lateral,total of 3 views FINDINGS: Five [id number] lumbar vertebrae were identified maintaining normal height and alignments. Narrowing of intervertebral disc spaces suggest underlying degenerative disc disease. Paravertebral soft tissues are unremarkable. There are radiolucencies, most likely superimposed bowel gas.. No radiographic evidence of osteolytic or osteoblastic lesions. XR/XR lumbar spine 2-3V IMPRESSION: Degenerative disc disease, no fracture.
[2022-12-08 11:24] VITALS: BP 146/92; PULSE 117; RESP 18; TEMP 37.1; O2SAT 95; BMI 45.9
--- NOTE | 2022-12-08 11:30 | ED.GENADULT ---
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 Patient reports he got caught up in his sandals causing him to lose his balance, falling, landing on his right knee. Denies hitting his head loss of consciousness. Patient reports pain in his right foot, right ankle, right knee, right hip, lower back, right shoulder. Patient reports he takes oxycodone 5 mg at home for pain as needed. He did not take any this morning. He denies any chest pain, abdominal pain, neck pain, vomiting, incontinence of urine or stool, weakness/numbness / tingling of the upper or lower extremities. Related Data Home Medications Medication Instructions Recorded Confirmed phenytoin sodium extended 100 mg 200 mg PO BID@0900,1600 02/07/20 09/19/22 capsule (Dilantin Extended) phenobarbital 97.2 mg tablet 194.4 mg PO BEDTIME 03/28/21 09/19/22 oxycodone 5 mg tablet 5 mg PO TID PRN Pain 06/11/21 09/19/22 pantoprazole 40 mg tablet,delayed 40 mg PO DAILY@0630 10/24/21 09/19/22 release acetaminophen 500 mg tablet 1,000 mg PO Q8H PRN pain 03/03/22 09/19/22 (Tylenol Extra Strength) diclofenac sodium 1 % topical gel 4 g topical QID PRN arthritis pain 03/03/22 09/19/22 (Voltaren Arthritis Pain) phenytoin sodium extended 100 mg 300 mg PO BEDTIME 03/03/22 09/19/22 capsule canakinumab (PF) 150 mg/mL 150 mg subcut Q4W 08/26/22 09/19/22 subcutaneous solution losartan 100 mg tablet 100 mg PO QAM 08/26/22 09/19/22 prednisone 5 mg tablet 10 mg PO DAILY 10/07/22 Previous Rx's Medication Instructions Recorded cyclobenzaprine 10 mg tablet 10 mg PO Q8H #20 tabs 07/26/20 cane #1 ea 02/01/21 allopurinol 100 mg tablet 100 mg PO DAILY #90 tabs 07/23/22 allopurinol 300 mg tablet 600 mg (2 x 300 mg) PO DAILY #180 10/04/22 tabs prednisone 5 mg tablet See Rx Instructions .Route 10/07/22 .COMPLEX #45 tabs colchicine (gout) 0.6 mg tablet 0.6 mg PO BID #60 tabs 11/12/22 gabapentin 100 mg capsule 200 mg (2 x 100 mg) PO BID #120 12/02/22 caps apixaban 5 mg tablet (Eliquis) 5 mg PO BID #60 tabs 12/04/22 Allergies Allergy/AdvReac Type Severity Reaction Status Date / Time Sulfa (Sulfonamide Allergy Severe DIFFICULTY Verified 12/08/22 11:24 Antibiotics) BREATHING, [SULFA (SULFONAMIDE RASH, ANTIBIOTICS)] rash, hypertension Review of Systems Review of Systems: Yes all other systems are reviewed and are negative Constitutional: Constitutional: Reports no additional constitutional complaints, Denies body ache(s), Denies chills, Denies fever(s), Denies headache(s) and Denies weakness Eyes: Eyes: Reports no additional eye complaints and Denies change in vision ENT: Reports system reviewed and no additional complaints, except as documented, Denies dizziness, Denies headache(s), Denies nasal congestion, Denies nasal discharge and Denies neck pain Cardiovascular: Cardiovascular: Reports no additional cardiovascular complaints, Denies chest pain, Denies leg edema and Denies dyspnea Respiratory: Respiratory: Reports no additional respiratory complaints, Denies cough and Denies dyspnea Gastrointestinal: Gastrointestinal: Reports no additional gastrointestinal complaints, Denies abdominal pain, Denies diarrhea, Denies nausea and Denies vomiting Genitourinary: Genitourinary: Denies urinary incontinence Musculoskeletal: Musculoskeletal: Reports no additional musculoskeletal complaints, Reports back pain, Reports arthralgias, Denies joint swelling, Denies neck pain, Denies numbness and Denies tingling Integumentary/Breasts: Skin/Breast: Reports system reviewed and no additional complaints, except as docu and Denies rash Neurologic: Reports system reviewed and no additional complaints, except as documented, Denies Abnormal speech present, Denies dizziness, Denies headache(s), Denies numbness, Denies tingling and Denies weakness FORMERLY [facility] Past Medical History Attestation statement: The following information was validated with the patient. Source: old records reviewed and nursing notes reviewed Medical History Chronic tophaceous gout Right leg DVT Rheumatoid arthritis Tachycardia Lumbar radiculopathy HTN (hypertension) Rheumatoid arthritis Sleep apnea History of epilepsy Surgical History Hx of exploratory laparotomy Hx of bariatric surgery History of spinal surgery Family History Family History Maternal Uncle Colon cancer Paternal Aunt Breast cancer Social History Social History Household Members: Spouse Housing: Apartment Are you a primary adult care provider to a significant other at home: Yes ( disabled) Do you presently have visiting nurse or other home services: No Alcohol intake: never Patient Tobacco Use Status: Never used Tobacco e-Cigarette/Vaping Use: Never Used Advance Directives: No Advance Directives Information Provided: No service: No Current occupational status: disabled Physical Exam ED Vital Signs: Vital Signs - 24 hr 12/08/22 11:24 12/08/22 14:11 Temperature 98.8 F 98.0 F Pulse Rate 117 H 96 Respiratory Rate 18 18 Blood Pressure 146/92 H 130/84 Pulse Oximetry 95 94 Oxygen Delivery Method Room Air Room Air BMI result Body Mass Index 45.9 Const General: cooperative, healthy appearing, comfortable and no acute distress Orientation/consciousness: patient oriented x3 Limitations: no limitations HENUT Head: Yes normal to inspection, No Hernandez's sign and No raccoon eyes Ears: hearing grossly normal bilaterally and TM's normal bilaterally General nose exam: Normal external nose present Face and sinus: Yes normal facial exam Mouth: Normal oral and palatal mucosa present Throat: Yes posterior oropharynx normal, Yes tonsils normal and Yes uvula midline Eyes General: appearance normal, both eyes and all related structures Pupils: Equal, round and reactive pupils present Neck Other: No cervical midline tenderness, step-off or deformity Neck: Yes normal visual inspection and Yes full ROM Chest Chest palpation & inspection: normal inspection of the chest Resp Effort & Inspection: normal respiratory effort Auscultation: clear to auscultation bilaterally Cardio Rate: regular rate Rhythm: regular rhythm Peripheral pulses: Peripheral pulses 2+ throughout GI Inspection: Yes normal to inspection Palpation (GI): Soft to palpation and nontender Auscultation: normal bowel sounds Back/Spine/Pelvis Other: Pain on palpation over the lumbar mid spine with no step-offs or deformities. Thoracic/Lumbar Spine: thoracic and lumbar spine normal to inspection Skin General skin exam: no rashes or lesions noted Neuro General: patient oriented x3, no focal motor deficits and normal sensation to monofilament Cranial nerves: Yes CN's II-XII intact bilaterally, Yes Equal, round and reactive pupils present, Yes Bilaterally intact EOM present, Yes Nystagmus not present, Yes Normal facial strength present and Yes Midline tongue present Cognition (Neuro): normal cognition Speech: No Abnormal speech present Motor exam (neuro): 5/5 motor strength present throughout Sensory Exam: Normal double simultaneous stimulation for sensation Deep tendon reflexes (DTR's): Right patellar reflex intensity grade: 2+ and Left patellar reflex intensity grade: 2+ Extrem Other: there is tenderness on palpation to the right anterior knee with passive and active range of motion intact. There is tenderness on palpation to the right great toe which is worsened with flexion and extension. Patient has full range of motion both passively and actively of the right ankle and right foot. Patient also has tenderness on palpation of the right lateral hip with normal range of motion. Patient has distal radial and ulnar pulses. Patient has distal sensation was intact normal range of motion both passively and actively over the right shoulder with no deformity noted. Normal radial and ulnar pulses. Normal sensation distally. General: Yes normal to inspection Course Course Course Narrative: RME: 47 yold male presents to the ED for right ankle/foot/hip/shoulder after falling last night. Xrays ordered Reevaluation(s) Reevaluation #1: x-ray show no acute bony abnormality. Patient feels improved after receiving oxycodone here in the emergency room. Plan for discharge home with recommendations for patient to continue his home medications. Reviewed worrisome signs and symptoms of when to return to the emergency room. Comfortable plan for discharge home. Medications Administered Discontinued Medications Generic Name Dose Route Start Last Admin Trade Name Freq PRN Reason Stop Dose Admin Acetaminophen 975 mg 12/08/22 13:00 12/08/22 13:09 Acetaminophen 325 Mg Tablet PO 12/08/22 13:01 975 mg ONCE ONE Administration Oxycodone HCl 10 mg 12/08/22 13:00 12/08/22 13:10 Oxycodone Hcl Immed Release 5 Mg Tablet PO 12/08/22 13:01 10 mg ONCE ONE Administration Medical Decision Making Medical Decision Making [facility] Narrative: 47 yo male with history of HTN, gout, RA, RLE DVT, and epilepsy, chronic back pain/post laminectomy syndrome here with complaints of fall which occurred last evening. Patient reports he got caught up in his sandals causing him to lose his balance, falling, landing on his right knee. Denies hitting his head loss of consciousness. Patient reports pain in his right foot, right ankle, right knee, right hip, lower back, right shoulder. Patient reports he takes oxycodone 5 mg at home for pain as needed. He did not take any this morning. He denies any chest pain, abdominal pain, neck pain, vomiting, incontinence of urine or stool, weakness/numbness / tingling of the upper or lower extremities. Patient has diffuse tenderness over the right lower extremity extending to the right hip as well as over the lumbar mid spine and right shoulder. He has intact passive and active range of motion. CMS is normal. Has no obvious shortening, rotation or deformity. Normal neurological exam with no focal neurological deficits or red flag symptoms. Will obtain imaging (x-rays), provide analgesia Differential Diagnosis Differential Diagnoses: The differential diagnosis associated with the presentation includes fracture, contusion, dislocation low concern for vascular injury of extremity Low concern for malignancy, epidural abscess, cord compression, cauda equina with normal neurological exam with no red flag symptoms or neurological deficits. No reports of night sweats, weight loss, fevers. No history of IV drug abuse or immunocompromised state low concern for fracture, bony abnormality with no reports of injury or trauma low concern for AAA with gradual onset with no reports of abdominal pain or radiation to the abdomen low concern for renal colic, pyelonephritis with no urinary symptoms Admission/Observation Consideration of admission/observation: Escalation of care including admission/observation considered patient has no neurological deficits or red flag symptoms to suggest need for MRI pain is well controlled and patient is ambulatory so no need for admission for intractable pain Independent Interpretation I performed an independent interpretation of an: Plain X-Ray Interpretation: I independently reviewed the x-rays and agree with rad report Radiology Impression Discussion of test interpretation with radiology: I have reviewed the radiologist's reading. Radiologist Impression: [address] [address] XRay Report Signed Patient: Gómez Pelletier MR#: [id number] : 1975 Acct:[id number] Age/Sex: 47 / M ADM Date: 12/08/22 Loc: HO.ED Attending Dr: Ordering Physician: Gokul Sorensen Date of Service: 12/08/22 Procedure(s): XR tibia fibula RT 2V Accession Number(s): [id number] cc: Gokul Sorensen; Shi Lancaster MD~ EXAMINATION: XR tibia fibula RT 2V, XR knee RT 3V CLINICAL INFORMATION: Reason for Exam fall COMPARISON: None available at the time of this dictation. TECHNIQUE: Frontal lateral and both obliques right knee 4 views. Frontal and lateral tibia-fibula 2 views. FINDINGS: BONES: No fracture or dislocation is present. JOINTS: Narrowing of joint spaces and developed osteophytes from the edges of articular surfaces suggest degenerative osteoarthritis. There is a small knee joint effusion. SOFT TISSUE: Normal XR/XR tibia fibula RT 2V IMPRESSION: Early advanced tricompartment degenerative osteoarthritis involving primarily medial compartment. Small knee joint effusion. No fracture. [address] [address] XRay Report Signed Patient: Gómez Pelletier MR#: [id number] : 1975 Acct:[id number] Age/Sex: 47 / M ADM Date: 12/08/22 Loc: HO.ED Attending Dr: Ordering Physician: Gokul Sorensen Date of Service: 12/08/22 Procedure(s): XR shoulder RT min 2V Accession Number(s): [id number] cc: Gokul Sorensen; Shi Lancaster MD~ EXAMINATION: XR SHOULDER , RIGHT CLINICAL INFORMATION: Fall COMPARISON: None available at the time of this dictation. TECHNIQUE: 3 views frontal lateral and scapular Y view of the shoulder. Total of 3views FINDINGS: BONES: There is no fracture or dislocation, no osteolytic or osteoblastic lesion. JOINTS: Glenohumeral joint is properly positioned. There is mild degenerative osteoarthritis of the acromioclavicular joint. SOFT TISSUE AND INCLUDED LUNG: Normal. XR/XR shoulder RT min 2V IMPRESSION: No fracture or dislocation. Except for mild DJD of the AC joint, exam is normal. [place] [address] XRay Report Signed Patient: Gómez Pelletier MR#: [id number] : 1975 Acct:[id number] Age/Sex: 47 / M ADM Date: 12/08/22 Loc: HO.ED Attending Dr: Ordering Physician: Gokul Sorensen Date of Service: 12/08/22 Procedure(s): XR hip RT w PEL1V Accession Number(s): [id number] cc: Gokul Sorensen; Shi Lancaster MD~ EXAMINATION: XR HIP, RIGHT CLINICAL INFORMATION: Fall COMPARISON: None available. TECHNIQUE: 2 views right hip and AP pelvis. FINDINGS: No fracture. Alignment is anatomic. Hip joint space is maintained. Soft tissues are unremarkable. XR/XR hip RT w PEL1V IMPRESSION: No radiographic evidence of acute fracture. [address] [address] XRay Report Signed Patient: Gómez Pelletier MR#: [id number] : 1975 Acct:[id number] Age/Sex: 47 / M ADM Date: 12/08/22 Loc: HO.ED Attending Dr: Ordering Physician: Gokul Sorensen Date of Service: 12/08/22 Procedure(s): XR foot RT min 3V Accession Number(s): [id number] cc: Gokul Sorensen; Shi Lancaster MD~ EXAMINATION:XR ankle RT min 3V, XR foot RT min 3V CLINICAL INFORMATION: Reason for Exam fall COMPARISON: None TECHNIQUE: Frontal and lateral views of the left ankle. 2 views, 3 views left foot frontal lateral oblique. FINDINGS: Degenerative osteoarthritic changes involving the first metatarsophalangeal joint, advanced degenerative arthritis of the intertarsal and tarsometatarsal joints. Small inferior enlarged posterior calcaneal spurs. Deformity likely an old healed fracture of the diaphysis fourth metatarsal. Ankle mortise is preserved. Talar dome is intact. Mild soft tissue swelling around medial malleolus. Tibial plafond and talar dome are normal. XR/XR foot RT min 3V IMPRESSION: * No radiographic evidence of acute fracture. * Underlying advanced degenerative osteoarthritis. * Soft tissue swelling around medial malleolus. * Deformity likely old healed fracture of the fourth metatarsal. [address] [address] XRay Report Signed Patient: Gómez Pelletier MR#: [id number] : 1975 Acct:[id number] Age/Sex: 47 / M ADM Date: 12/08/22 Loc: HO.ED Attending Dr: Ordering Physician: Elva Spears NP Date of Service: 12/08/22 Procedure(s): XR lumbar spine 2-3V Accession Number(s): [id number] cc: Shi Lancaster MD; Elva Spears NP~ EXAMINATION: XR LUMBAR SPINE CLINICAL INFORMATION: Fall COMPARISON: [facility] [address] TECHNIQUE: Frontal lateral and coned-down L5-S1 frontal lateral,total of 3 views FINDINGS: Five [id number] lumbar vertebrae were identified maintaining normal height and alignments. Narrowing of intervertebral disc spaces suggest underlying degenerative disc disease. Paravertebral soft tissues are unremarkable. There are radiolucencies, most likely superimposed bowel gas.. No radiographic evidence of osteolytic or osteoblastic lesions. XR/XR lumbar spine 2-3V IMPRESSION: Degenerative disc disease, no fracture. External Record Review External record reviewed: Office record and Outpatient record Prescription Management I considered prescription management with: Pain Medication Discharge Plan Discharge Clinical Impression: Contusion of multiple sites Patient Disposition: Home, Self-Care Instructions: Contusion in Adults (ED) Additional Instructions: Continue your home medications. Apply ice or heat to the affected areas Follow-up with your outpatient providers as needed Contin?e con eugene medicamentos caseros. Aplicar hielo o calor en las zonas afectadas. Jemma un seguimiento con eugene proveedores ambulatorios seg?n sea necesario Prescriptions: No Action (DME) cane Device See Rx Instructions .Route Qty: 1 0RF Rx Instructions: As directed oxycodone 5 mg tablet 5 mg PO TID PRN (Reason: Pain) allopurinol 100 mg tablet 100 mg PO DAILY Qty: 90 3RF Rx Instructions: To be taken with the twice a day 300 mg allopurinol tablets -total daily dose 700 mg allopurinol 300 mg tablet 600 mg PO DAILY Qty: 180 2RF Rx Instructions: take two 300mg po with one 100mg to equal 700mg po daily colchicine (gout) 0.6 mg tablet 0.6 mg PO BID Qty: 60 5RF gabapentin 100 mg capsule 200 mg PO BID Qty: 120 3RF phenytoin sodium extended [Dilantin Extended] 100 mg Capsule 200 mg PO BID@0900,1600 phenobarbital 97.2 mg tablet 194.4 mg PO BEDTIME cyclobenzaprine 10 mg tablet 10 mg PO Q8H Qty: 20 0RF Eliquis 5 mg tablet 5 mg PO BID Qty: 60 5RF phenytoin sodium extended 100 mg capsule 300 mg PO BEDTIME acetaminophen [Tylenol Extra Strength] 500 mg tablet 1,000 mg PO Q8H PRN (Reason: pain) diclofenac sodium [Voltaren Arthritis Pain] 1 % gel 4 g topical QID PRN (Reason: arthritis pain) Rx Instructions: apply to hands, single knee, ankle, foot; for foot includes sole/toes/top of foot pantoprazole 40 mg tablet,delayed release (DR/EC) 40 mg PO DAILY@0630 losartan 100 mg tablet 100 mg PO QAM canakinumab (PF) 150 mg/mL solution 150 mg subcut Q4W prednisone 5 mg tablet 10 mg PO DAILY prednisone 5 mg tablet See Rx Instructions .ROUTE .COMPLEX Qty: 45 3RF Rx Instructions: One tab alternating with 2 tab daily Referrals: Shi Lancaster MD [Primary Care Provider] - 1 week Interventions: ED Discharge Assessment Last Done: 12/08/22 14:17 Discharge Date/Time: 12/08/22 14:17 Print Language: Amharic
[2022-12-08] MEDS: Acetaminophen 325 MG TABLET 975 MG PO (13:09)
[2022-12-08] MEDS: oxyCODONE HCl Immed Release 5 MG TABLET 10 MG PO (13:10)
[2022-12-08 14:11] VITALS: BP 130/84; PULSE 96; RESP 18; TEMP 36.7; O2SAT 94
== END 2022-12-08 14:17 | disposition home or self-care (01) ==
PROVIDERS: Emergency Provider Emergency Medicine; PCP Internal Medicine
DX: S30.0XXA Contusion of lower back and pelvis, initial encounter (principal); R10.2 Pelvic and perineal pain; M25.511 Pain in right shoulder; M25.561 Pain in right knee; M79.671 Pain in right foot; M79.604 Pain in right leg; M25.571 Pain in right ankle and joints of right foot; W01.0XXA Fall on same level from slipping, tripping and stumbling without subsequent striking against object, initial encounter; Y93.9 Activity, unspecified; Y92.9 Unspecified place or not applicable; Y99.9 Unspecified external cause status; Z79.899 Other long term (current) drug therapy
CPT/HCPCS: 72100; 73030; 73502; 73562; 73590; 73610; 73630; 99284

== ENCOUNTER 2022-12-10 10:03 | Outpatient (AMB) | payer MEDICAID, SELFPAY ==
--- NOTE | 2022-12-10 10:04 | A.OFFVIS_ITS ---
Intake Vital Signs 12/10/22 10:14 Height 5 ft 10 in Weight 320 lb 12.361 oz BMI 46.0 BP 112/76 Blood Pressure Location Lt brachial Position Sitting Pulse 112 H Pulse Source Pulse Oximeter Temp 98 F Temp Source Skin Pulse Oximetry (%) 96 Oxygen Delivery Method Room Air Intake Visit Reasons: Gout Intake Note: Patient presents today for gout follow up. Senior Director Finance Required: Yes Senior Director Finance Language: Stars Specialist Name: Uma [id number] Information Interpreted: clinical only Allergies Sulfa (Sulfonamide Antibiotics) [SULFA (SULFONAMIDE ANTIBIOTICS)] Allergy (Severe, Verified 12/10/22 10:13) DIFFICULTY BREATHING, RASH, rash, hypertension HPI HPI Comments History of Present Illness Details The patient returns for evaluation of his tophaceous gout. He has not had any gout attacks. He remains on prednisone 10 mg alternating with 5 mg da calixto, colchicine 0.6 mg daily, monthly Ilaris injections and allopurinol 700 mg daily. He did have a fall at home on Friday. He stood up and his right knee gave way. He felt onto the right side of his body. He did visit the ER. Multiple x-rays of various body parts did not reveal any fractures. He says the areas are improving but his right knee is still painful. [facility] Medical History Chronic tophaceous gout Right leg DVT Rheumatoid arthritis Tachycardia Lumbar radiculopathy HTN (hypertension) Rheumatoid arthritis Sleep apnea History of epilepsy Surgical History Hx of exploratory laparotomy Hx of bariatric surgery History of spinal surgery Family History Maternal Uncle Colon cancer Paternal Aunt Breast cancer Social History Household Members: Spouse Housing: Apartment Are you a primary health care specialist to a significant other at home: Yes ( disabled) Do you presently have visiting nurse or other home services: No Alcohol intake: never Patient Tobacco Use Status: Never used Tobacco e-Cigarette/Vaping Use: Never Used service: No Current occupational status: disabled Review of Systems Const Details: He is concerned about some weight gain. Negative for appetite change, fever, chills, malaise and fatigue Eyes Details: Negative for vision change, dry eyes,headaches and dizziness Card Details: Negative chest pain, edema and syncope Resp Details: Negative for SOB, cough and wheezing GI Details: Negative indigestion/heartburn, nausea, abdominal pain, bowel changes, diarrhea, constipation and bloody stool. Skin/Breast Details: Negative for itching, rash, hives, Raynaud's symptoms, sun sensitivity, and skin cancer Anthony/Lymph Details: Negative for excessive bruising or bleeding. Physical Exam Vital Signs: Last Vital Signs Temp 98 F 12/10/22 10:14 Pulse 112 H 12/10/22 10:14 BP 112/76 12/10/22 10:14 Pulse Ox 96 12/10/22 10:14 Oxygen Delivery Method Room Air 12/10/22 10:14 BMI result Body Mass Index 46.0 APPEARANCE: Patient in no acute distress EXTREMITIES: No edema, no calf tenderness, normal peripheral pulses. JOINT EXAM: ?? Hands: LEFT: Slight thickness without tenderness at MCP 2, no warmth or erythema. No other swelling or tenderness throughout the hand. Range of motion is intact. ? RIGHT:? Normal pain-free range of motion without swelling, tenderness, increased warmth or erythema.? Slight bony enlargement in the 4th PIP.? Able to make a full fist with improved type bar and segment assembler strength.? Wrists:? LEFT:? No pain with flexion and extension.? No tenderness, swelling increased warmth or erythema. ? RIGHT:?? limited flexion and extension to about 30 degrees with some discomfort.? Questionable soft tissue swelling but no tenderness, erythema or increased warmth. Elbows: LEFT:? Normal? pain-free range of motion.? No swelling, erythema, warmth or tenderness.? There is a thickened and nodular olecranon bursa.? No tenderness. ? RIGHT:? Normal pain free range of motion without swelling, increased warmth or erythema.? Shoulders:??LEFT:? Normal pain-free range of motion. ? RIGHT:? Normal pain-free range of motion. Knees:? Right:? Mild patellofemoral crepitus and slight pain with extremes of normal flexion extension.? There is mild medial compartment tenderness without redness or effusion.? Left:? Full range of motion without pain.? There is some mild patellofemoral crepitus and medial tenderness but no redness or effusion. Ankles: LEFT:? Unable to perform plantar flexion or dorsiflexion, this is chronic.? No tenderness swelling, erythema or increased warmth noted. ? RIGHT: Normal range of motion.? No swelling, tenderness, erythema or increased warmth noted. ? Feet:? LEFT:? Mild 1st MTP bony enlargement without tenderness. Elsewhere there is no tenderness, swelling, erythema or increased warmth. ? RIGHT:? Full range of motion.? No tenderness, swelling, erythema or increased warmth. Results Reviewed Results Reviewed: Laboratory Tests 08/16/22 10/06/22 09:11 14:16 WBC 6.7 Hgb 14.9 ESR 17 H Laboratory Tests 08/16/22 10/01/22 12/04/22 09:11 09:03 09:10 Creatinine 0.90 Uric Acid 5.9 C-Reactive Protein 1.66 H 12/04/22 09:10 Creatinine Uric Acid 6.5 C-Reactive Protein Assessment & Plan Assessment & Plan (1) Osteoarthritis of knees, bilateral: Code(s): M17.0 - Bilateral primary osteoarthritis of knee (2) buttermaker use of drug: Code(s): Z79.899 - Other skilled nursing (current) drug therapy (3) Chronic tophaceous gout: Comment: 02/2022: MSU crystals in aspirate of left olecranon 02/2022 Started on allopurinol, colchicine, prednisone 08/20/2022 Canakinumab add for acute gout prevention Code(s): M1A.9XX1 - Chronic gout, unspecified, with tophus (tophi) Plan Tophaceous gout with again improved control of gout attacks with current regimen. The uric acid however is now a bit above the target. He denies any use of alcohol recently but does admit he does take in red meats. It is possib le that he might have missed a dose or 2 of the allopurinol but he does not recall that. We will recheck the uric acid in another week or 2, again hoping to keep the uric acid below 6. We will reduce his prednisone down to 5 mg daily. For now he will stay on the monthly Ilaris and 0.6 mg b.i.d. colchicine which have been very helpful at avoiding future attacks. Follow-up is scheduled for 2 months. Orders: Orders Creatinine Today M1A.9XX1 - Chronic gout, unspecified, with tophus (tophi) Uric Acid Today M1A.9XX1 - Chronic gout, unspecified, with tophus (tophi) PT Evaluation and Treatment Today M17.0 - Bilateral primary osteoarthritis of knee Medications: Refilled prednisone One tab alternating with 2 tab daily 45 tabs 3RF M1A.9XX1 - Chronic gout, unspecified, with tophus (tophi) Coding Level of Care Code Est Pt Level 3 (06617) Diagnoses Osteoarthritis of knees, bilateral M17.0 longterm use of drug Z79.899 Chronic tophaceous gout M1A.9XX1
[2022-12-10 10:14] VITALS: BP 112/76; PULSE 112; TEMP 36.6; O2SAT 96; BMI 46.0
== END 2022-12-10 10:41 | disposition home or self-care (01) ==
PROVIDERS: PCP Internal Medicine; Visit Provider Internal Medicine Rheumatology
DX: M17.0 Bilateral primary osteoarthritis of knee (principal); Z79.899 Other long term (current) drug therapy; M1A.9XX1 Chronic gout, unspecified, with tophus (tophi)
CPT/HCPCS: 99213

== ENCOUNTER → 2022-12-10 10:03 | Outpatient (BNVA) | payer MEDICAID, SELFPAY | PROVIDERS: PCP Internal Medicine; Visit Provider Internal Medicine Rheumatology | DX: M1A.9XX1 Chronic gout, unspecified, with tophus (tophi) (principal); M17.0 Bilateral primary osteoarthritis of knee; Z79.899 Other long term (current) drug therapy | CPT/HCPCS: 99212 ==

== ENCOUNTER 2022-12-25 08:58 | Outpatient (REF) | payer MEDICAID, SELFPAY ==
[2022-12-25 10:46] LABS: Estimated Glomerular Filt Rate > 60; Uric Acid 5.8 mg/dL (3.4-7.0)
== END 2022-12-25 08:59 | disposition home or self-care (01) ==
LOC: HO.LAB 08:58
PROVIDERS: Visit Provider Internal Medicine Rheumatology
DX: M1A.9XX1 Chronic gout, unspecified, with tophus (tophi) (principal)
CPT/HCPCS: 36415; 82565; 84550

== ENCOUNTER 2022-12-27 09:59 | Outpatient (AMB) | payer MEDICAID, SELFPAY ==
--- NOTE | 2023-01-01 09:04 | AM.OFFVISNUR ---
Intake Intake Visit Reasons: Gout Allergies Sulfa (Sulfonamide Antibiotics) [SULFA (SULFONAMIDE ANTIBIOTICS)] Allergy (Severe, Verified 12/10/22 10:13) DIFFICULTY BREATHING, RASH, rash, hypertension Nursing Note Patient here for continued Ilaris therapy. Patient denied any new allergies or taking any new medications at this time. Patient gave verbal consent to administer Ilaris. I administered Ilaris on left arm. Patient tolerated injection well. Office Meds canakinumab (PF) 150 mg/mL subcutaneous solution Performing Provider: Sundeep Benson MD Performing Location: [facility] [place] Rhe[facility]ology Administered by: Sudha Calvert RN on 12/27/22 10:08 Dose Route Admin Location Dispensed Lot Number Expiration Date [facility] Blood Bank Laboratory Technician 150 mg subcut left arm 1 mL [id number] 05/14/25 4119-7439-19 [facility] Coding Level of Care Code Procedure Only Assessment & Plan Assessment & Plan Orders: Orders AMB Canakinumab Injection Practice Supplied 12/27/22 M1A.9XX1 - Chronic gout, unspecified, with tophus (tophi)
== END 2022-12-27 10:28 | disposition home or self-care (01) ==
PROVIDERS: PCP Internal Medicine; Visit Provider Internal Medicine Rheumatology
DX: M1A.9XX1 Chronic gout, unspecified, with tophus (tophi) (principal)

== ENCOUNTER → 2022-12-27 09:59 | Outpatient (BNVA) | payer MEDICAID, SELFPAY | PROVIDERS: PCP Internal Medicine; Visit Provider Internal Medicine Rheumatology | DX: M1A.9XX1 Chronic gout, unspecified, with tophus (tophi) (principal) | CPT/HCPCS: 96372; J0638 ==

== ENCOUNTER → 2023-01-02 19:00 | Outpatient (BNV) | payer MEDICAID, SELFPAY | PROVIDERS: PCP Internal Medicine; Visit Provider Psychiatry & Neurology Neurology | DX: G47.33 Obstructive sleep apnea (adult) (pediatric) (principal) | CPT/HCPCS: 95810 ==

== ENCOUNTER → 2023-01-02 19:30 | Outpatient (REF) | payer MEDICAID, SELFPAY | LOC: HO.SL 19:30 | PROVIDERS: PCP Internal Medicine; Visit Provider Internal Medicine | DX: G47.33 Obstructive sleep apnea (adult) (pediatric) (principal) | CPT/HCPCS: 95810 ==

== ENCOUNTER 2023-01-07 09:59 | Outpatient (AMB) | payer MEDICAID, SELFPAY ==
--- NOTE | 2023-01-07 10:20 | A.OFFVIS_ITS ---
Intake Vital Signs 01/07/23 10:24 Height 5 ft 10 in Weight 300 lb BMI 43.0 BP 121/84 Blood Pressure Location Lt brachial Position Sitting Pulse 82 Intake Visit Reasons: Colonoscopy Screening Intake Note: New consult for new consult for 1st pre colonoscopy screening. Patient denies any GI issues. Marketing Operations Coordinator Required: Yes Marketing Operations Coordinator Name: Parrish [id number] Accompanied by: Self / Same As Patient Allergies Sulfa (Sulfonamide Antibiotics) [SULFA (SULFONAMIDE ANTIBIOTICS)] Allergy (Severe, Verified 01/07/23 10:17) DIFFICULTY BREATHING, RASH, rash, hypertension Medication List - Last Reconciled 01/07/23 by Fany Driscoll PA-C acetaminophen (Tylenol Extra Strength) 1,000 mg PO Q8H PRN allopurinol 100 mg PO DAILY allopurinol 600 mg (2 x 300 mg) PO DAILY apixaban (Eliquis) 5 mg PO BID canakinumab (PF) 150 mg subcut Q4W cane As directed colchicine (gout) 0.6 mg PO BID cyclobenzaprine 10 mg PO Q8H diclofenac sodium 1% (Voltaren Arthritis Pain) 4 grams topical QID PRN gabapentin 200 mg (2 x 100 mg) PO BID hydrochlorothiazide 12.5 mg PO QAM losartan 100 mg PO QAM losartan 50 mg PO QAM naproxen 500 mg PO BID oxycodone 5 mg PO TID PRN pantoprazole 40 mg PO DAILY@0630 phenobarbital 194.4 mg PO BEDTIME phenytoin sodium extended (Dilantin Extended) 200 mg PO BID@0900,1600 phenytoin sodium extended 300 mg PO BEDTIME prednisone One tab alternating with 2 tab daily sumatriptan succinate 100 mg PO Q4H PRN sumatriptan succinate mg PO HPI HPI Comments History of Present Illness Details A 47 y/o obese male multiple comorbid illness- referred for index screening colonoscopy-[id number], hx DVT on anticoag,epilepsy-, hx cardiac - unclear- no details. He has no GI complaints- he has no family hx GI cancers- though Fam hx say Mat- uncle-he is unclear- He has a good appetite Has normal bowel pattern He has sleep apnea uses CPAP Seizure disorder per well-controlled no recent seizure He does take medication for gout which she says seems to give him a fair amount of pain that he deals with No nausea, vomiting, hematemesis, hematochezia fever chills PFSH Medical History Chronic tophaceous gout Right leg DVT Rheumatoid arthritis Tachycardia Lumbar radiculopathy HTN (hypertension) Rheumatoid arthritis Sleep apnea History of epilepsy Surgical History Hx of exploratory laparotomy Hx of bariatric surgery History of spinal surgery Family History Maternal Uncle Colon cancer Paternal Aunt Breast cancer Social History Household Members: Spouse Housing: Apartment Are you a primary healthcare educator to a significant other at home: Yes ( disabled) Do you presently have visiting nurse or other home services: No Alcohol intake: never Patient Tobacco Use Status: Never used Tobacco e-Cigarette/Vaping Use: Never Used service: No Current occupational status: disabled Review of Systems Const All systems reviewed & are unremarkable except as noted in HPI and below Card Denies chest pain and Denies dyspnea Resp Denies dyspnea GI Denies abdominal pain, Denies hematochezia, Denies change in bowel habits, Denies heartburn, Denies nausea and Denies vomiting Musc Reports abnormal gait and Reports back pain Neuro Reports abnormal gait Psych Denies homicidal ideation and Denies suicidal ideation Physical Exam Vital Signs: Last Vital Signs Pulse 82 01/07/23 10:24 BP 121/84 01/07/23 10:24 BMI result Body Mass Index 43.0 APR 108 Const General: cooperative, comfortable and no acute distress Nutritional Appearance: overweight Orientation/consciousness: patient oriented x3 Limitations: language barrier Eyes Sclerae: sclerae normal Resp Effort & Inspection: normal respiratory effort and able to speak in complete sentences Auscultation: clear to auscultation bilaterally, no rales, no rhonchi and no wheezes Cardio Rate: tachycardic (108) Rhythm: regular rhythm Heart sounds: S1 normal heart sound present and S2 normal heart sound present GI Palpation (GI): Soft to palpation and nontender Auscultation: normal bowel sounds Skin General skin exam: no rashes or lesions noted Neuro General: patient oriented x3 Extrem General: Yes full ROM Psych Appearance: grossly normal Mental Status: mental status grossly normal Speech and movement: Normal speech and movement present Affect: normal affect Attitude: cooperative Thought process: Normal thought process present Thought content: Normal thought content present Insight: Good insight present (Psych) Judgement: Good judgement present (Psych) Assessment & Plan Assessment & Plan (1) Right leg DVT: Code(s): I82.401 - Acute embolism and thrombosis of unspecified deep veins of right lower extremity Plan: Eliquis (2) Poor historian: Comment: Details limited-obesity p/e-mild tachycardia, he then admits to cardiac testing, unclear limited detail, pretty much is unable to provide any detail. May be anesthesia risk Code(s): Z78.9 - Other specified health status (3) Encounter for screening colonoscopy: Comment: Pleasant, obese Cardiac history is unclear, history of DVT, anticoagulation- No GI complaints Code(s): Z12.11 - Encounter for screening for malignant neoplasm of colon Plan: Cologuard, discuss approximate 13% follows positive. If positive result would recommend colonoscopy If negative coverage for 3 years Plan Cologuard if positive recommend colonoscopy Orders: Referrals Cologuard Test I82.401 - Acute embolism and thrombosis of unspecified deep veins of right lower extremity, Z12.11 - Encounter for screening for malignant neoplasm of colon, Z78.9 - Other specified health status Patient Instructions: A pleasant, obese 47-year-old male multiple comorbidities referred for screening colonoscopy. No GI complaints Review history difficult to obtain specifics/detail Physical exam tachycardic He will call and arrange appointment to See pcp- Discuss colonoscopy and alternatives- Request for Cologuard has been submitted He will call 2 weeks after submitting sample for results Coding Level of Care Code New Pt Level 4 (43025) Diagnoses Right leg DVT I82.401 Poor historian Z78.9 Encounter for screening colonoscopy Z12.11 Time Spent (min) 35 Comment interprter [id number]
[2023-01-07 10:24] VITALS: BP 121/84; PULSE 82; BMI 43.0
== END 2023-01-07 11:20 | disposition home or self-care (01) ==
PROVIDERS: PCP Internal Medicine; Visit Provider Physician Assistant
DX: Z01.818 Encounter for other preprocedural examination (principal); Z12.11 Encounter for screening for malignant neoplasm of colon; I82.401 Acute embolism and thrombosis of unspecified deep veins of right lower extremity
CPT/HCPCS: 99203

== ENCOUNTER → 2023-01-07 09:59 | Outpatient (BNVA) | payer MEDICAID, SELFPAY | PROVIDERS: PCP Internal Medicine; Visit Provider Physician Assistant | DX: Z12.11 Encounter for screening for malignant neoplasm of colon (principal); I82.401 Acute embolism and thrombosis of unspecified deep veins of right lower extremity | CPT/HCPCS: 99212 ==

== ENCOUNTER 2023-01-16 14:21 | Emergency (ER) | payer MEDICAID, SELFPAY ==
--- NOTE | ~2023-01-16 | XR_ITS ---
EXAMINATION: XR RIGHT KNEE XR LEFT KNEE XR LEFT HIP/PELVIS XR LEFT FOOT XR RIGHT FOOT CLINICAL INFORMATION: Status post fall with pain. COMPARISON: 12/08/2022 and 07/11/2021 TECHNIQUE: AP, lateral and oblique views of each foot. AP and frog-leg lateral views of the left hip. AP view of the pelvis. AP and lateral views of each knee. FINDINGS: Right foot: Decreased bone mineralization. Joint space narrowing of the first MTP joint with marginal osteophytes. Hypertrophic changes of the first metatarsal head. There are large dorsal intertarsal, tarsometatarsal and ankle mortise joint osteophytes with overlying soft tissue swelling.. There are moderate retrocalcaneal enthesophytes seen. There is loss of the subtalar joint space. No displaced fracture. Deformity likely an old healed fracture of the diaphysis fourth metatarsal. Marked medial midfoot/hindfoot soft tissue swelling. Left foot: Decreased bone mineralization. Joint space narrowing of the first MTP joint with marginal osteophytes. Hypertrophic changes of the first metatarsal head. There are large dorsal intertarsal, tarsometatarsal and ankle mortise joint osteophytes with overlying soft tissue swelling.. There are large retrocalcaneal enthesophytes seen. There is loss of the subtalar joint space. No displaced fracture. Diffuse soft tissue swelling. Right knee: Marked lateral tibiofemoral cartilage space loss and mild medial medial tibiofemoral cartilage space loss with marginal osteophytes. Lateral patellar subluxation. Marked patellofemoral cartilage space loss with marginal osteophytes. Trace suprapatellar joint effusion. Patellar tendon enthesopathy. Left knee: Moderate lateral tibiofemoral and mild medial tibiofemoral cartilage space loss with marginal osteophytes. Moderate patellofemoral cartilage space loss with marginal veins. Small suprapatellar joint effusion with loose bodies suspected. Left hip/pelvis: Alignment is anatomic. Left hip cartilage space is maintained. Os acetabuli. No displaced fracture or dislocation. XR/XR foot LT min 3V IMPRESSION: As above.
[2023-01-16 14:27] VITALS: BP 132/91; PULSE 111; PULSE 112; RESP 20; TEMP 37.1; O2SAT 96; BMI 37.3
--- NOTE | 2023-01-16 14:33 | ED_ITS ---
HPI - General Adult General Chief complaint: Fall Stated complaint: FALL BODY PAIN Time Seen by Provider: 01/16/23 14:33 Source: patient, family (patient's ) and EMS Mode of arrival: EMS Limitations: language barrier History of Present Illness HPI narrative: Patient is a 47 year old assigned male at with a history of RA presenting to the emergency department today with left hip pain, bilateral foot pain, and bilateral knee pain after a fall. Patient states that he was walking, missed a step type ledge, and fell onto his knees and left side. Patient denies any head strike or loss of consciousness. Patient denies any dizziness, lightheadedness, abdominal pain, nausea, vomiting, fever, chills, blurry vision, double vision, loss of vision, chest pain, difficulty breathing, shortness of breath, back pa in, night sweats, pain with urination, increased urinary frequency, increased urinary urgency, blood in his urine or stool, syncope or a near syncopal episode, bowel incontinence, bladder incontinence, bowel retention, bladder retention, or any other complaints at this time. Onset (ago): minute(s) Location: left, right and lower extremity Severity: mild Severity scale (1-10): 3 Quality: aching and dull Pain Consistency: constant Relieving factors: none Exacerbating factors: none Associated symptoms: denies other symptoms Treatments prior to arrival: none Related Data Home Medications Medication Instructions Recorded Confirmed phenytoin sodium extended 100 mg 200 mg PO BID@0900,1600 02/07/20 01/07/23 capsule (Dilantin Extended) phenobarbital 97.2 mg tablet 194.4 mg PO BEDTIME 03/28/21 01/07/23 oxycodone 5 mg tablet 5 mg PO TID PRN Pain 06/11/21 01/07/23 pantoprazole 40 mg tablet,delayed 40 mg PO DAILY@0630 10/24/21 01/07/23 release acetaminophen 500 mg tablet 1,000 mg PO Q8H PRN pain 03/03/22 01/07/23 (Tylenol Extra Strength) diclofenac sodium 1 % topical gel 4 g topical QID PRN arthritis pain 03/03/22 01/07/23 (Voltaren Arthritis Pain) phenytoin sodium extended 100 mg 300 mg PO BEDTIME 03/03/22 01/07/23 capsule canakinumab (PF) 150 mg/mL 150 mg subcut Q4W 08/26/22 01/07/23 subcutaneous solution losartan 100 mg tablet 100 mg PO QAM 08/26/22 01/07/23 hydrochlorothiazide 12.5 mg tablet 12.5 mg PO QAM 12/09/22 01/07/23 losartan 50 mg tablet 50 mg PO QAM 12/09/22 01/07/23 naproxen 500 mg tablet 500 mg PO BID 12/09/22 01/07/23 sumatriptan succinate 100 mg tablet 100 mg PO Q4H PRN 12/09/22 01/07/23 sumatriptan succinate 25 mg tablet mg PO 12/09/22 01/07/23 Previous Rx's Medication Instructions Recorded cyclobenzaprine 10 mg tablet 10 mg PO Q8H #20 tabs 07/26/20 cane #1 ea 02/01/21 allopurinol 100 mg tablet 100 mg PO DAILY #90 tabs 07/23/22 allopurinol 300 mg tablet 600 mg (2 x 300 mg) PO DAILY #180 10/04/22 tabs colchicine (gout) 0.6 mg tablet 0.6 mg PO BID #60 tabs 11/12/22 gabapentin 100 mg capsule 200 mg (2 x 100 mg) PO BID #120 12/02/22 caps apixaban 5 mg tablet (Eliquis) 5 mg PO BID #60 tabs 12/04/22 prednisone 5 mg tablet See Rx Instructions .Route 12/10/22 .COMPLEX #45 tabs Allergies Allergy/AdvReac Type Severity Reaction Status Date / Time Sulfa (Sulfonamide Allergy Severe DIFFICULTY Verified 01/07/23 10:17 Antibiotics) BREATHING, [SULFA (SULFONAMIDE RASH, ANTIBIOTICS)] rash, hypertension Review of Systems Constitutional: Constitutional: Reports no additional constitutional complaints, Denies chills, Denies fever(s) and Denies night sweats Eyes: Eyes: Reports no additional eye complaints, Denies blurry vision, Denies change in vision, Denies diplopia, Denies eye discharge, Denies loss of vision and Denies eye pain ENT: Denies dizziness Cardiovascular: Cardiovascular: Reports no additional cardiovascular complaints, Denies chest pain, Denies lightheadedness, Denies Loss of Consciousness and Denies dyspnea Respiratory: Respiratory: Reports no additional respiratory complaints and Den ies dyspnea Gastrointestinal: Gastrointestinal: Reports no additional gastrointestinal complaints, Denies abdominal pain, Denies melena, Denies hematochezia, Denies change in bowel habits and Denies change in stool character Genitourinary: Genitourinary: Reports no additional male genitourinary complaints, Denies hematuria, Denies oliguria, Denies difficulty urinating, Denies dysuria, Denies urinary frequency, Denies urinary hesitancy, Denies urinary incontinence and Denies urinary urgency Musculoskeletal: Musculoskeletal: Reports no additional musculoskeletal complaints, Denies numbness and Denies tingling Comments: bilateral knee pain, bilateral foot pain, and left hip pain Neurologic: Denies dizziness, Denies loss of vision, Denies numbness and Denies tingling Psychiatric: Psychiatric: Reports no additional psychiatric complaints Endocrine: Endocrine: Reports no additional endocrine complaints Hematologic/Lymphatic: Hematologic/Lymphatic: Reports no additional hematologic/lymphatic complaints Allergic/Immunologic: Allergic/Immunologic: Reports no additional allergic/immunologic complaints PMFSH Past Medical History Attestation statement: The following information was validated with the patient. (patient's validated all information) Source: old records reviewed, obtained from family (patient's provided additional history and confirmed the history provided by the patient.) and nursing notes reviewed Medical History Chronic tophaceous gout Right leg DVT Rheumatoid arthritis Tachycardia Lumbar radiculopathy HTN (hypertension) Rheumatoid arthritis Sleep apnea History of epilepsy Surgical History Hx of exploratory laparotomy Hx of bariatric surgery History of spinal surgery Family History Family History Maternal Uncle Colon cancer Paternal Aunt Breast cancer Social History Social History Household Members: Spouse Housing: Apartment 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 ( disabled) Do you presently have visiting nurse or other home services: No Alcohol intake: never Patient Tobacco Use Status: Never used Tobacco e-Cigarette/Vaping Use: Never Used Advance Directives: No Advance Directives Information Provided: No service: No Current occupational status: disabled Physical Exam ED Vital Signs: Vital Signs - 24 hr 01/16/23 14:27 01/16/23 16:39 Temperature 98.7 F 97.8 F Pulse Rate 111 H 99 Respiratory Rate 20 17 Blood Pressure 132/91 H 140/71 H Pulse Oximetry 96 95 Oxygen Delivery Method Room Air Room Air BMI result Body Mass Index 37.3 Const General: cooperative, no acute distress, alert and awake Nutritional Appearance: well nourished Orientation/consciousness: patient oriented x3 Limitations: no limitations HENMT Head: Yes normal to inspection and Yes atraumatic Ears: hearing grossly normal bilaterally and external ears normal General nose exam: Normal external nose present, no nasal discharge noted and no epistaxis Face and sinus: Yes normal facial exam, No abrasion and No laceration Mouth: Normal oral and palatal mucosa present, no drooling and no muffled voice Eyes General: appearance normal, both eyes and all related structures Periorbital: periorbital findings normal Eyelids: Yes eyelids normal Conjunctivae: conjunctivae normal Pupils: Equal, round and reactive pupils present EOM: EOMs intact bilaterally Neck Neck: Yes normal visual inspection, Yes full ROM and Yes no lymphadenopathy Chest Chest palpation & inspection: normal inspection of the chest Resp Effort & Inspection: normal respiratory effort and able to speak in complete sentences GI Inspection: Yes normal to inspection Neuro General: patient oriented x3 and moves all extremities Cranial nerves: Yes Equal, round and reactive pupils present Cognition (Neuro): normal cognition Motor exam (neuro): 5/5 motor strength present throughout Sensory Exam: Normal double simultaneous stimulation for sensation Coordination: [id number] test normal Extrem General: Yes normal to inspection, Yes full ROM and Yes capillary refill normal Psych Appearance: grossly normal Mental Status: mental status grossly normal Affect: normal affect Attitude: cooperative Thought process: Normal thought process present Thought content: Normal thought content present Insight: Good insight present (Psych) Medications Administered Discontinued Medications Generic Name Dose Route Start Last Admin Trade Name Freq PRN Reason Stop Dose Admin Cyclobenzaprine HCl 5 mg 01/16/23 16:49 01/16/23 17:14 Cyclobenzaprine Hcl 5 Mg Tablet PO 01/16/23 16:50 5 mg ONCE ONE Administration Ketorolac Tromethamine 15 mg 01/16/23 16:49 01/16/23 17:14 Ketorolac Tromethamine 15 Mg/Ml Vial IM 01/16/23 16:50 15 mg ONCE ONE Administration Oxycodone HCl 10 mg 01/16/23 14:38 01/16/23 15:03 Oxycodone Hcl Immed Release 5 Mg Tablet PO 01/16/23 14:39 10 mg ONCE ONE Administration Medical Decision Making Medical Decision Making MDM Narrative: Patient is a 47 year old assigned male at with a history of RA presenting to the emergency department today with bilateral knee pain, bilateral foot pain, and left hip pain after a fall. Patient's physical exam was unremarkable. Patient's left hip + pelvis, bilateral foot, and bilateral knee x-rays showed no acute process. I explained my physical exam findings as well as all test results to the patient and the patient's . I answered all questions asked by the patient and the patient's . Patient received pain medication while in the department which he stated helped his symptoms significantly. Patient was able to ambulate in the department without incident or issue. I stressed the importance of the patient taking his medication as prescribed. I stressed the importance of the patient following up with his primary care provider. I stressed the importance of the patient returning to the emergency department immediately if his symptoms were to worsen or if he were to develop any dizziness, shortness of breath, difficulty breathing, chest pain, blurry vision, loss of vision, nausea, vomiting, abdominal pain, fever, chills, back pain, or any other complaints. Patient and the patient's verbalized agreement and understanding with this treatment plan and discharge. Differential Diagnosis Differential Diagnoses: The differential diagnosis associated with the presentation includes RA OA Fall Knee pain Foot pain Hip pain Independent Interpretation I performed an independent interpretation of an: Plain X-Ray Interpretation: My interpretation is in agreement with the radiologist's impression of these imaging studies. EXAMINATION: XR RIGHT KNEE XR LEFT KNEE XR LEFT HIP/PELVIS XR LEFT FOOT XR RIGHT FOOT CLINICAL INFORMATION: Status post fall with pain. COMPARISON: 12/08/2022 and 07/11/2021 TECHNIQUE: AP, lateral and oblique views of each foot. AP and frog-leg lateral views of the left hip. AP view of the pelvis. AP and lateral views of each knee. FINDINGS: Right foot: Decreased bone mineralization. Joint space narrowing of the first MTP joint with marginal osteophytes. Hypertrophic changes of the first metatarsal head. There are large dorsal intertarsal, tarsometatarsal and ankle mortise joint osteophytes with overlying soft tissue swelling.. There are moderate retrocalcaneal enthesophytes seen. There is loss of the subtalar joint space. No displaced fracture. Deformity likely an old healed fracture of the diaphysis fourth metatarsal. Marked medial midfoot/hindfoot soft tissue swelling. Left foot: Decreased bone mineralization. Joint space narrowing of the first MTP joint with marginal osteophytes. Hypertrophic changes of the first metatarsal head. There are large dorsal intertarsal, tarsometatarsal and ankle mortise joint osteophytes with overlying soft tissue swelling.. There are large retrocalcaneal enthesophytes seen. There is loss of the subtalar joint space. No displaced fracture. Diffuse soft tissue swelling. Right knee: Marked lateral tibiofemoral cartilage space loss and mild medial medial tibiofemoral cartilage space loss with marginal osteophytes. Lateral patellar subluxation. Marked patellofemoral cartilage space loss with marginal osteophytes. Trace suprapatellar joint effusion. Patellar tendon enthesopathy. Left knee: Moderate lateral tibiofemoral and mild medial tibiofemoral cartilage space loss with marginal osteophytes. Moderate patellofemoral cartilage space loss with marginal veins. Small suprapatellar joint effusion with loose bodies suspected. Left hip/pelvis: Alignment is anatomic. Left hip cartilage space is maintained. Os acetabuli. No displaced fracture or dislocation. XR/XR knee RT 2V IMPRESSION: As above. Dictated By: Eric Guzman MD Signed By: Electronically signed by Eric Guzman MD 01/16/23 4524 Radiology Impression Discussion of test interpretation with radiology: I have reviewed the radiologist's reading. Independent Historian Clinical information obtained from an independent historian. History obtained from or confirmed by: Spouse (Patient's provided additional history and confirmed the history provided by the patient.) and EMS (EMS provided additional history and confirmed the history provided by the patient.) Discharge Plan Discharge Clinical Impression: Fall Patient Disposition: Home, Self-Care Instructions: Fall Prevention (ED) Additional Instructions: Follow up with your primary care provider. Return to the emergency department immediately if your symptoms worsen or if you develop any dizziness, shortness of breath, difficulty breathing, chest pain, blurry vision, loss of vision, nausea, vomiting, abdominal pain, fever, chills, back pain, or any other complaints. Jemma un seguimiento con palencia proveedor de atenci?n primaria. Regrese al departamento de emergencias inmediatamente si eugene s?ntomas empeoran o si presenta mareos, dificultad para respirar, dificultad para respirar, dolor en el pecho, visi?n borrosa, p?rdida de la visi?n, n?useas, v?mitos, dolor abdominal, fiebre, escalofr?os, dolor de espalda o cualquier otras quejas. Prescriptions: No Action (DME) cane Device See Rx Instructions .Route Qty: 1 0RF Rx Instructions: As directed oxycodone 5 mg tablet 5 mg PO TID PRN (Reason: Pain) allopurinol 100 mg tablet 100 mg PO DAILY Qty: 90 3RF Rx Instructions: To be taken with the twice a day 300 mg allopurinol tablets -total daily dose 700 mg allopurinol 300 mg tablet 600 mg PO DAILY Qty: 180 2RF Rx Instructions: take two 300mg po with one 100mg to equal 700mg po daily colchicine (gout) 0.6 mg tablet 0.6 mg PO BID Qty: 60 5RF gabapentin 100 mg capsule 200 mg PO BID Qty: 120 3RF phenytoin sodium extended [Dilantin Extended] 100 mg Capsule 200 mg PO BID@0900,1600 phenobarbital 97.2 mg tablet 194.4 mg PO BEDTIME cyclobenzaprine 10 mg tablet 10 mg PO Q8H Qty: 20 0RF Eliquis 5 mg tablet 5 mg PO BID Qty: 60 5RF phenytoin sodium extended 100 mg capsule 300 mg PO BEDTIME acetaminophen [Tylenol Extra Strength] 500 mg tablet 1,000 mg PO Q8H PRN (Reason: pain) diclofenac sodium [Voltaren Arthritis Pain] 1 % gel 4 g topical QID PRN (Reason: arthritis pain) Rx Instructions: apply to hands, single knee, ankle, foot; for foot includes sole/toes/top of foot pantoprazole 40 mg tablet,delayed release (DR/EC) 40 mg PO DAILY@0630 naproxen 500 mg tablet 500 mg PO BID losartan 50 mg tablet 50 mg PO QAM hydrochlorothiazide 12.5 mg tablet 12.5 mg PO QAM sumatriptan succinate 25 mg tablet PO sumatriptan succinate 100 mg tablet 100 mg PO Q4H PRN prednisone 5 mg tablet See Rx Instructions .ROUTE .COMPLEX Qty: 45 3RF Rx Instructions: One tab alternating with 2 tab daily losartan 100 mg tablet 100 mg PO QAM canakinumab (PF) 150 mg/mL solution 150 mg subcut Q4W Referrals: [facility] [place] [facility] [Provider Group] (Call to establish and follow up with a primary care provider. If you already have a primary care provider, please follow up with them. Llame para establecer y realizar un seguimiento con un proveedor de atenci?n primaria. Si ya tiene un proveedor de atenci?n primaria, jemma un seguimiento con ?l.) [facility] [place] [Provider Group] (Call to establish and follow up with a primary care provider. If you already have a primary care provider, please follow up with them. Llame para establecer y realizar un seguimiento con un proveedor de atenci?n primaria. Si ya tiene un proveedor de atenci?n primaria, jemma un seguimiento con ?l.) [facility] Primary Care,[facility]akshmi [Provider Group] (Call to establish and follow up with a primary care provider. If you already have a primary care provider, please follow up with them. Llame para establecer y realizar un seguimiento con un proveedor de atenci?n primaria. Si ya tiene un proveedor de atenci?n primaria, jemma un seguimiento con ?l.) Interventions: ED Discharge Assessment Last Done: 01/16/23 18:06 Discharge Date/Time: 01/16/23 18:07 Print Language: Mohawk
[2023-01-16] MEDS: oxyCODONE HCl Immed Release 5 MG TABLET 10 MG PO (15:03)
[2023-01-16 16:39] VITALS: BP 140/71; PULSE 99; RESP 17; TEMP 36.6; O2SAT 95
[2023-01-16] MEDS: Ketorolac Tromethamine 15 MG/ML VIAL IM (17:14)
[2023-01-16] MEDS: Cyclobenzaprine HCl 5 MG TABLET PO (17:14)
--- NOTE | 2023-01-16 17:55 | PC.NURSE ---
This RN and Mariia BALDWIN ambulated with patient. Pt was able to ambulate independently with slow but steady gait out of room and back to room. No apparent distress
== END 2023-01-16 18:07 | disposition home or self-care (01) ==
PROVIDERS: Emergency Provider Emergency Medicine
DX: S89.92XA Unspecified injury of left lower leg, initial encounter (principal); S89.91XA Unspecified injury of right lower leg, initial encounter; M79.672 Pain in left foot; M79.671 Pain in right foot; M25.552 Pain in left hip; W01.0XXA Fall on same level from slipping, tripping and stumbling without subsequent striking against object, initial encounter; Y93.9 Activity, unspecified; Y92.480 Sidewalk as the place of occurrence of the external cause; Y99.9 Unspecified external cause status; Z79.899 Other long term (current) drug therapy
CPT/HCPCS: 73502; 73560; 73630; 96372; 99284; J1885

== ENCOUNTER → 2023-01-23 14:41 | Outpatient (BNVA) | payer MEDICAID, SELFPAY | PROVIDERS: Visit Provider Nurse Practitioner Family | DX: M1A.9XX1 Chronic gout, unspecified, with tophus (tophi) (principal); G47.33 Obstructive sleep apnea (adult) (pediatric); Z99.89 Dependence on other enabling machines and devices; Z99.81 Dependence on supplemental oxygen | CPT/HCPCS: 99212 ==

== ENCOUNTER 2023-01-23 14:42 | Outpatient (AMB) | payer MEDICAID, SELFPAY ==
--- NOTE | 2023-01-23 15:22 | A.OFFVIS_ITS ---
Intake Vital Signs 01/23/23 15:23 Height 5 ft 10 in Weight 326 lb 2 oz BMI 46.8 BP 128/74 Blood Pressure Location Rt brachial Position Sitting Pulse 137 H Pulse Source Pulse Oximeter Pulse Oximetry (%) 96 Oxygen Delivery Method Room Air Intake Visit Reasons: ENP-KRZYSZTOF Intake Note: Pt presents today to establish care for KRZYSZTOF Allergies Sulfa (Sulfonamide Antibiotics) [SULFA (SULFONAMIDE ANTIBIOTICS)] Allergy (Severe, Verified 01/23/23 15:28) DIFFICULTY BREATHING, RASH, rash, hypertension HPI HPI Comments History of Present Illness Details 47 y/o male patient presents for new in- person visit to manage sleep apnea. Pt was diagnosed with sleep apnea about 10 years ago and has been using the original CPAP since then. He feels the CPAP does not work well, he still has non refreshing sleep and having daytime sleepiness. He falls asleep around 3 pm and takes a nap about 2-3 hrs. His current home care company is [facility], and had received the supplies last week. He gained over 80 lb over the last year. Pt had a repeat PSG sleep study done recently. The result was significant for severe degree of sleep apnea. The AHI was 90/hr and oxygen ben was 79%. Sleep architecture was remarkable for severe fragmentation. Less than 3 hrs sleep recorded. Sleep questionnaire: Have you ever been diagnosed with a sleep disorder? Yes. KRZYSZTOF. Have you ever had a sleep study in the past? Yes. Have you ever been treated for a sleep disorder? Yes, CPAP. Do you take medications for a sleep disorder? Gabapentin. Do you snore? Do you wake up gasping at night? Yes. Do you have episodes of apneas? Yes. If yes, are they witnessed? Yes. Do you have episodes of nocturnal chest pain or dyspnea? Yes. Do you have difficulty initiating sleep? Yes. Do you have difficulty maintaining sleep? Yes. Do you wake up tired? Yes. Do you have headaches upon awakening? Yes. Do you wake up with dry mouth or throat? Yes. Do you have GERD? No. Do you have nocturia? No. Do you have nocturnal leg cramps? No. Do you have symptoms of restless legs? Yes. gabapentin helps. Do you act out your dreams? No. Sleep hygiene questionnaire: What is your usual sleep routine? Usual bedtime is at 10 pm; Usual wake up time is at 3 am. Do you take naps? 3 pm to 6 pm. Is your sleep environment cool, dark, and quiet? Yes. Do you exercise? No. Do you take caffeine or other stimulants? Soda daily. Do you use electronics in bed? Yes. What is your work schedule? N/A. Hypersomnolence questionnaire: Do you have daytime tiredness or fatigue? No. Do you easily fall asleep when inactive? No. Have you ever had episodes of sudden weakness? No. Have you ever had episodes of sudden weakness associated with strong emotions? No. PFSH Medical History Chronic tophaceous gout Right leg DVT Rheumatoid arthritis Tachycardia Lumbar radiculopathy HTN (hypertension) Rheumatoid arthritis Sleep apnea History of epilepsy Surgical History Hx of exploratory laparotomy Hx of bariatric surgery History of spinal surgery Family History Maternal Uncle Colon cancer Paternal Aunt Breast cancer Social History Household Members: Spouse Housing: Apartment Are you a primary intensive care medicine specialist to a significant other at home: Yes ( disabled) Do you presently have visiting nurse or other home services: No Alcohol intake: never Patient Tobacco Use Status: Never used Tobacco e-Cigarette/Vaping Use: Never Used service: No Current occupational status: disabled Review of Systems ENT Reports Normal hearing present Neuro Reports Normal hearing present Physical Exam Vital Signs: Last Vital Signs Pulse 137 H 01/23/23 15:23 BP 128/74 01/23/23 15:23 Pulse Ox 96 01/23/23 15:23 Oxygen Delivery Method Room Air 01/23/23 15:23 BMI result Body Mass Index 46.8 Const General: cooperative and tired appearing Nutritional Appearance: obese Orientation/consciousness: patient oriented x3 Limitations: language barrier Neuro General: patient oriented x3 Cranial nerves: Yes Bilaterally intact EOM present, Yes Normal facial strength present, Yes Midline tongue present, Yes Symmetric palate elevation present, Yes Normal hearing present, Yes Ability to bilaterally rotate head present and Yes Ability to bilaterally elevate shoulders present Cognition (Neuro): normal cognition Gait exam (Neuro): Normal gait present Motor exam (neuro): 5/5 motor strength present throughout, Pronator motor function not present and no tremor noted Psych Appearance: grossly normal Mental Status: mental status grossly normal Speech and movement: Normal speech and movement present Affect: normal affect Attitude: cooperative Assessment & Plan Assessment & Plan (1) KRZYSZTOF (obstructive sleep apnea): Comment: Severe degree of sleep apnea. The AHI was 90/hr and oxygen ben was 79%. Code(s): G47.33 - Obstructive sleep apnea (adult) (pediatric) Plan Pt is advised to undergo in lab sleep study titration study to find out the optimal CPAP pressure to treat his sleep apnea. Will f/u with pt after study to discuss results and appropriate treatment options. Wt reduction advised and sleep hygiene education provided. Pt to call with any worsening concerns or questions. Orders: Orders RT PSG in-lab sleep titration Today G47.33 - Obstructive sleep apnea (adult) (pediatric) Coding Level of Care Code New Pt Level 3 (28327) Diagnoses KRZYSZTOF (obstructive sleep apnea) G47.33
[2023-01-23 15:23] VITALS: BP 128/74; PULSE 137; O2SAT 96; BMI 46.8
== END 2023-01-23 15:46 | disposition home or self-care (01) ==
PROVIDERS: Visit Provider Nurse Practitioner Family
DX: G47.33 Obstructive sleep apnea (adult) (pediatric) (principal)
CPT/HCPCS: 99203

== ENCOUNTER 2023-01-29 11:55 | Outpatient (REF) | payer MEDICAID, SELFPAY ==
[2023-01-29 12:07] LABS: MANUAL DIFF FLAG NO
[2023-01-29 12:29] LABS: Basophils Percent Auto 0.4 % (0-2); Eosinophils Absolute Auto 0.2 X10*3/uL (0.0-0.4); Eosinophils Percent Auto 3.3 % (0-4); Hematocrit 43.6 % (42.0-52.0); Imm Gran Abs Auto 0.01 X10*3/uL (0.00-0.03); Imm Gran Pct Auto 0.1 % (0.0-0.4); Lymphocytes Absolute Auto 1.7 X10*3/uL (1.2-4.9); Lymphocytes Percent Auto 23.3 % (20-40); Mean Corpuscular HGB Conc 34.4 g/dl (31.0-36.0); Mean Corpuscular Hemoglobin 33.5 pg (27.0-33.0); Mean Corpuscular Volume 97.3 fL (80.0-98.0); Mean Platelet Volume 10.3 fL (9.4-12.4); Monocytes Absolute Auto 1.1 X10*3/uL (0.1-1.2); Monocytes Percent Auto 14.7 % (2-11); Neutrophils Absolute Auto 4.2 x10*3/uL (2.0-8.3); Neutrophils Percent Auto 58.2 % (45-73); Platelet Count 214 X10*3/uL (160-400); Red Blood Count 4.48 X10*6/uL (4.60-5.80); Red Cell Distribution Width 13.2 % (11.0-16.0); White Blood Count 7.2 X10*3/uL (4.8-10.8)
[2023-01-29 12:52] LABS: C Reactive Protein 0.71 mg/dL (< or = 0.50); Estimated Glomerular Filt Rate > 60; Uric Acid 6.5 mg/dL (3.4-7.0)
[2023-01-29 13:07] LABS: Erythrocyte Sedimentation Rate 7 MM/HR (0-15)
== END 2023-01-29 11:56 | disposition home or self-care (01) ==
LOC: HO.LAB 11:55
PROVIDERS: PCP Internal Medicine; Visit Provider Internal Medicine Rheumatology
DX: M1A.9XX1 Chronic gout, unspecified, with tophus (tophi) (principal)
CPT/HCPCS: 36415; 82565; 84550; 85025; 85652; 86140

== ENCOUNTER 2023-02-03 11:57 | Outpatient (AMB) | payer MEDICAID, SELFPAY ==
[2023-02-03 12:38] VITALS: BP 132/86; PULSE 124; RESP 18; TEMP 36.9; O2SAT 99; BMI 46.8
--- NOTE | 2023-02-03 12:38 | MHC.OFFVIS ---
Intake Vital Signs 02/03/23 12:38 Height 5 ft 10 in Weight 326 lb BMI 46.8 BP 132/86 Blood Pressure Location Rt brachial Position Sitting Respiration 18 Pulse 124 H Pulse Source Pulse Oximeter Temp 98.4 F Temp Source Skin Pulse Oximetry (%) 99 Oxygen Delivery Method Room Air Intake Visit Reasons: Gout follow up/[place]lar[place] Associate Professor Of Automation Required: Yes Associate Professor Of Automation Name: Mo #[id number] Accompanied by: Self / Same As Patient Allergies Sulfa (Sulfonamide Antibiotics) [SULFA (SULFONAMIDE ANTIBIOTICS)] Allergy (Severe, Verified 02/03/23 12:40) DIFFICULTY BREATHING, RASH, rash, hypertension Medication List - Last Reconciled 02/03/23 by Sudha Calvert RN acetaminophen (Tylenol Extra Strength) 1,000 mg PO Q8H PRN allopurinol 100 mg PO DAILY allopurinol 600 mg (2 x 300 mg) PO DAILY apixaban (Eliquis) 5 mg PO BID canakinumab (PF) 150 mg subcut Q4W cane As directed colchicine (gout) 0.6 mg PO BID cyclobenzaprine 10 mg PO Q8H diclofenac sodium 1% (Voltaren Arthritis Pain) 4 grams topical QID PRN gabapentin 200 mg (2 x 100 mg) PO BID hydrochlorothiazide 12.5 mg PO QAM losartan 100 mg PO QAM losartan 50 mg PO QAM naproxen 500 mg PO BID oxycodone 5 mg PO TID PRN pantoprazole 40 mg PO DAILY@0630 phenobarbital 194.4 mg PO BEDTIME phenytoin sodium extended (Dilantin Extended) 200 mg PO BID@0900,1600 phenytoin sodium extended 300 mg PO BEDTIME prednisone One tab alternating with 2 tab daily sumatriptan succinate 100 mg PO Q4H PRN sumatriptan succinate mg PO HPI HPI Comments History of Present Illness Details The patient returns for evaluation of his osteoarthritis and tophaceous gout. He remains on allopurinol at 700 mg daily, colchicine 0.6 b.i.d., prednisone 10 mg alternating with 5 mg daily, and canakinumab every month. He has not had any gout attacks in recent months. He received a canakinumab injection today without incident. He says he has pain in the lower back, left hip and the knees. Unfortunately he had another slip and fall at home. Further x-rays did not reveal any fractures. He says he feels his legs are getting weaker. He recalls they were at a similar stage previously when he had back surgery 5 or 6 years ago. There is no numbness in the legs. He was supposed to go to physical therapy for the leg weakness but had the fall and that disabled him for a while. [facility] Medical History Chronic tophaceous gout Right leg DVT Rheumatoid arthritis Tachycardia Lumbar radiculopathy HTN (hypertension) Rheumatoid arthritis Sleep apnea History of epilepsy Surgical History Hx of exploratory laparotomy Hx of bariatric surgery History of spinal surgery Family History Maternal Uncle Colon cancer Paternal Aunt Breast cancer Social History Household Members: Spouse Housing: Apartment Are you a primary ocular care aide to a significant other at home: Yes ( disabled) Do you presently have visiting nurse or other home services: No Alcohol intake: never Patient Tobacco Use Status: Never used Tobacco e-Cigarette/Vaping Use: Never Used service: No Current occupational status: disabled Review of Systems Const Details: Negative for appetite change, weight change, fever, chills, malaise and fatigue Eyes Details: Negative for vision change, dry eyes,headaches and dizziness ENT Details: Negative for hearing change, tinnitus, oral ulcer, nose bleeds and oral dryness. Card Details: Negative chest pain, edema and syncope Resp Details: Negative for SOB, cough and wheezing GI Details: Negative indigestion/heartburn, nausea, abdominal pain, bowel changes, diarrhea, constipation and bloody stool. Neuro Details: He feels the legs are weaker. Negative for epilepsy, palsy, stroke, changes in speech, tingling Endo Details: Negative for polyuria and polydypsia Anthony/Lymph Details: Negative for excessive bruising or bleeding. Physical Exam Vital Signs: Last Vital Signs Temp 98.4 F 02/03/23 12:38 Pulse 124 H 02/03/23 12:38 Resp 18 02/03/23 12:38 BP 132/86 02/03/23 12:38 Pulse Ox 99 02/03/23 12:38 Oxygen Delivery Method Room Air 02/03/23 12:38 BMI result Body Mass Index 46.8 APPEARANCE: Patient in no acute distress EXTREMITIES: No edema, no calf tenderness, normal peripheral pulses. Neuro: I do not detect any focal weakness. Reflexes are still suppressed throughout but symmetric. No sensory losses except perhaps in the feet. The JOINT EXAM: ?? Hands: LEFT: Slight thickness without tenderness at MCP 2, no warmth or erythema. No other swelling or tenderness throughout the hand. Range of motion is intact. ? RIGHT:? Normal pain-free range of motion without swelling, tenderness, increased warmth or erythema.? Slight bony enlargement in the 4th PIP.? Able to make a full fist with improved prefabricator strength.? Wrists:? LEFT:? No pain with flexion and extension.? Range of motion intact to about 60 degrees. No tenderness, swelling increased warmth or erythema. ? RIGHT:?? limited flexion and extension to about 30 degrees with no discomfort.? Questionable soft tissue swelling but no tenderness, erythema or increased warmth. Elbows: LEFT:? Normal? pain-free range of motion.? No swelling, erythema, warmth or tenderness.? There is a thickened and nodular olecranon bursa.? No tenderness. ? RIGHT:? Normal pain free range of motion without swelling, increased warmth or erythema.? Shoulders:??LEFT:? Normal pain-free range of motion. ? RIGHT:? Normal pain-free range of motion. Knees:? Right:? Mild patellofemoral crepitus and slight pain with extremes of normal flexion extension.? There is mild medial compartment tenderness without redness or effusion.? Left:? Full range of motion without pain.? There is some mild patellofemoral crepitus and medial tenderness but no redness or effusion. Ankles: LEFT:? Unable to perform plantar flexion or dorsiflexion, this is chronic.? No tenderness swelling, erythema or increased warmth noted. ? RIGHT: Normal range of motion.? No swelling, tenderness, erythema or increased warmth noted. ? Feet:? LEFT:? Mild 1st MTP bony enlargement without tenderness. Elsewhere there is no tenderness, swelling, erythema or increased warmth. ? RIGHT:? Full range of motion.? No tenderness, swelling, erythema or increased warmth. Office Meds canakinumab (PF) 150 mg/mL subcutaneous solution Performing Provider: Sundeep Benson MD Performing Location: [facility] Rheumatology Administered by: Sudha Calvert RN on 02/03/23 15:07 Dose Route Admin Location Dispensed Lot Number Expiration Date [facility] [employer] 150 mg subcut left arm 1 mL [id number] 04/16/25 8570-6902-53 [employer] Results Reviewed Results Reviewed: Laboratory Tests 12/25/22 01/29/23 09:30 12:05 WBC 7.2 Hgb 15.0 ESR 7 Creatinine 0.87 Uric Acid 5.8 6.5 C-Reactive Protein 0.71 [place] [id number] Magnetic Resonance Report Signed Patient: Gómez Pelletier MR#: [id number] : 1975 Acct:[id number] Age/Sex: 46 / M ADM Date: 06/05/[address]: Alex Carmen MD Ordering Physician: Alex Carmen MD Date of Service: 06/05/22 Procedure(s): MR lumbar spine wo/w con Accession Number(s): [id number] cc: Alex Carmen MD~ EXAMINATION: MR LUMBAR SPINE WITHOUT AND WITH CONTRAST CLINICAL INFORMATION: Post laminectomy syndrome. COMPARISON: MRI scan of the lumbar spine 12/20/2018. TECHNIQUE: MRI of the lumbar spine was obtained using routine sequences with and without contrast. Intravenous contrast: Gadavist 10 mL FINDINGS: VERTEBRAL BODIES AND PARASPINAL STRUCTURES: There is a mild levoscoliosis. There is a mild retrolisthesis of L2 on L3. There is multilevel narrowing of intervertebral disc height, most severe at L2-L3. There are multilevel degenerative endplate contour changes. Fatty endplate signal changes are seen at T11-T12. There are edematous endplate signal changes with enhancement at L2-L3, most prominent toward the left. There are prominent right-sided flowing osteophytes at T11-T12 and T12-L1. There are no acute fractures and vertebral body heights are maintained. There are Schmorl's nodes at adjacent endplates at multiple levels. Overall, marrow signal is slightly heterogenous. There are sequelae of laminectomies at L1-L2 and L2-L3. There is a small cyst at the midpole of the left kidney anteriorly. The infrarenal abdominal artery is slightly tortuous but no aneurysm is demonstrated. The visualized pelvic structures are unremarkable. CONUS MEDULLARIS AND CAUDA EQUINA: Normal, terminating at the level of L1. The lower thoracic spinal cord has normal signal and there is no abnormal enhancement. The filum terminale appears normal. There is crowding of the cauda equina nerve roots from central stenosis at multiple levels. There is no abnormal enhancement of the cauda equina nerve roots. SPINAL LEVELS: T12-L1: There is mild bilateral facet arthropathy. Disc contour is normal. There is no central stenosis or foraminal narrowing. L1-L2: There are sequelae of bilateral laminectomies, and is mild facet arthropathy. There is a central and left-sided disc protrusion, extruding into the left subarticular recess with marked narrowing, and with increased mass effect on the thecal sac compared to prior imaging. There is impingement on the traversing left L2 nerve root. There is no foraminal nerve root impingement. There is moderate to severe central stenosis on the current study. L2-L3: There are sequelae of bilateral laminectomies. There is moderate to severe facet arthropathy, increased on the right compared to prior imaging. There is a broad-based posterior disc protrusion with extrusion behind the body of L2 in the midline, similar compared to prior imaging. There is marked narrowing of the bilateral subarticular recesses with impingement on the traversing L3 nerve roots. There is severe central stenosis. There are bilateral foraminal disc protrusions without definite exiting nerve root impingement. L3-L4: There is moderate to severe bilateral facet arthropathy. There is a broad-based posterior disc protrusion with an extruded component extending behind the body of L4 centrally and to the right of midline, which is more prominent compared to prior imaging, and there is now severe compression of the thecal sac with severe central stenosis. There is narrowing of the bilateral subarticular recesses. There are right greater than left foraminal disc protrusions without definite exiting nerve root impingement. L4-L5: There is moderate to severe bilateral facet arthropathy with ligamenta flava hypertrophy. There is a central and left-sided disc protrusion extending into the left neural foramen and far laterally with impingement on the exiting and extraforaminal left L4 nerve root. On the right there is a disc protrusion with an annular tear extending far laterally with impingement on the extraforaminal right L4 nerve root, similar compared to prior imaging. There is marked narrowing of the left subarticular recess, and there is mild to moderate central stenosis. These findings have progressed compared to prior imaging. L5-S1: There is markedly severe left and severe right facet arthropathy. There is a posterior disc protrusion with an annular fissure which is most prominent centrally and toward the left extending into the left neural foramen with impingement on the exiting left L5 nerve root. There is narrowing of the left subarticular recess with impingement on the traversing left S1 nerve root. There is minimal central stenosis. MR/MR lumbar spine wo/w con IMPRESSION: 1. At L1-L2 there are sequelae of bilateral laminectomies. There is a central and left-sided disc protrusion/extrusion with increased mass effect on the thecal sac compared to prior imaging. There is impingement on the traversing left L2 nerve root. There is moderate to severe central stenosis on the current study. 2. At L2-L3 there are sequelae of bilateral laminectomies. There is a broad-based posterior disc protrusion/extrusion, similar compared to prior imaging. There is marked narrowing of the bilateral subarticular recesses with impingement on the traversing L3 nerve roots. There is severe central stenosis. 3. At L3-L4 there is facet arthropathy and there is a posterior disc protrusion/extrusion, more prominent compared to prior imaging. There is now severe compression of the thecal sac with severe central stenosis. 4. At L4-L5 there is facet arthropathy. There is a central and left-sided disc protrusion extending into the left neural foramen and far laterally with impingement on the exiting and extraforaminal left L4 nerve root. A right-sided disc protrusion extends far laterally with impingement on the extraforaminal right L4 nerve root. There is marked narrowing of the left subarticular recess and there is mild to moderate central stenosis. These findings have progressed compared to prior imaging. 5. The study redemonstrates facet arthropathy at L5-S1, with narrowing of the left neural foramen and subarticular recess with impingement on the exiting left L5 and traversing left S1 nerve roots. 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 The prominence of the areas where I think he has tophaceous deposits is also less evident today. I think we can stop the canakinumab at this point. I will also reduce the prednisone to 5 mg daily. Uric acid level still occasionally floats of above 6 on 700 mg daily allopurinol so we will increase it the allopurinol to 800 mg. He will stay with the colchicine as above. Hopefully when he gets off the canakinumab and prednisone he would be a more suitable candidate for knee replacement surgery. The weakness in the legs could be due to deconditioning secondary to OA in the knees. However he says it is similar to what he had when he had the back problem so I think a recheck with his neurosurgeon might be helpful to exclude that possibility. He did have an MRI of the back earlier this year so I think that will probably suffice in terms of imaging before he sees the neurosurgeon. I told him to call up PT to see if he could get in to get some exercises to keep the knees as strong as he can. If we can get him off the prednisone then he would be a reasonable candidate to send to surgery for knee replacements. We will have him recheck with us with lab work before the visit in about 2 months. Orders: Orders AMB Canakinumab Injection Practice Supplied Today M1A.9XX1 - Chronic gout, unspecified, with tophus (tophi) Referrals Neurosurgery Referral M96.1 - Postlaminectomy syndrome, not elsewhere classified Medications: Changed From prednisone One tab alternating with 2 tab daily 45 tabs 3RF M1A.9XX1 - Chronic gout, unspecified, with tophus (tophi) To prednisone 5 mg PO DAILY 30 tabs 3RF M1A.9XX1 - Chronic gout, unspecified, with tophus (tophi) From allopurinol To be taken with the twice a day 300 mg allopurinol tablets -total daily dose 700 mg 100 mg PO DAILY 90 tabs 3RF To allopurinol To be taken with the twice a day with two 300 mg allopurinol tablets -total daily dose 800 mg 200 mg (2 x 100 mg) PO DAILY 180 tabs 3RF From allopurinol take two 300mg po with one 100mg to equal 700mg po daily 600 mg (2 x 300 mg) PO DAILY 180 tabs 2RF M1A.9XX1 - Chronic gout, unspecified, with tophus (tophi) To allopurinol take two 300mg po with two 100mg to equal 800mg po daily 600 mg (2 x 300 mg) PO DAILY 180 tabs 2RF M1A.9XX1 - Chronic gout, unspecified, with tophus (tophi) Coding Level of Care Code Est Pt Level 4 (29800) Diagnoses Post laminectomy syndrome M96.1 snf use of drug Z79.899 Osteoarthritis of knees, bilateral M17.0 Chronic tophaceous gout M1A.XX1
== END 2023-02-03 13:09 | disposition home or self-care (01) ==
PROVIDERS: PCP Internal Medicine; Visit Provider Internal Medicine Rheumatology
DX: M96.1 Postlaminectomy syndrome, not elsewhere classified (principal); Z79.899 Other long term (current) drug therapy; M17.0 Bilateral primary osteoarthritis of knee; M1A.9XX1 Chronic gout, unspecified, with tophus (tophi)
CPT/HCPCS: 99214

== ENCOUNTER → 2023-02-03 11:57 | Outpatient (BNVA) | payer MEDICAID, SELFPAY | PROVIDERS: PCP Internal Medicine; Visit Provider Internal Medicine Rheumatology | DX: M96.1 Postlaminectomy syndrome, not elsewhere classified (principal); M17.0 Bilateral primary osteoarthritis of knee; M1A.9XX1 Chronic gout, unspecified, with tophus (tophi); Z79.899 Other long term (current) drug therapy | CPT/HCPCS: 96372; 99212; J0638 ==

== ENCOUNTER → 2023-02-04 20:30 | Outpatient (REF) | payer MEDICAID, SELFPAY | LOC: HO.SL 20:30 | PROVIDERS: PCP Internal Medicine; Visit Provider Nurse Practitioner Family | DX: G47.33 Obstructive sleep apnea (adult) (pediatric) (principal) | CPT/HCPCS: 95811 ==

== ENCOUNTER → 2023-02-04 21:00 | Outpatient (BNV) | payer MEDICAID, SELFPAY | PROVIDERS: PCP Internal Medicine; Visit Provider Psychiatry & Neurology Neurology | DX: G47.33 Obstructive sleep apnea (adult) (pediatric) (principal) | CPT/HCPCS: 95811 ==

== ENCOUNTER 2023-05-14 11:55 | Outpatient (AMB) | payer MEDICAID, SELFPAY ==
[2023-05-14 12:23] VITALS: BP 130/78; PULSE 123; RESP 16; TEMP 36.6; O2SAT 95; BMI 47.3
--- NOTE | 2023-05-14 12:23 | A.OFFVIS_ITS ---
Intake Vital Signs 05/14/23 12:23 Height 5 ft 10 in Weight 330 lb 0.512 oz BMI 47.3 BP 130/78 Blood Pressure Location Rt brachial Position Sitting Respiration 16 Pulse 123 H Pulse Source Pulse Oximeter Temp 97.8 F Temp Source Skin Pulse Oximetry (%) 95 Oxygen Delivery Method Room Air Intake Visit Reasons: gout Lathe Hand Required: Yes Allergies Sulfa (Sulfonamide Antibiotics) [SULFA (SULFONAMIDE ANTIBIOTICS)] Allergy (Severe, Verified 05/14/23 12:26) DIFFICULTY BREATHING, RASH, rash, hypertension Medication List - Last Reconciled 05/14/23 by Sudha Calvert RN acetaminophen (Tylenol Extra Strength) 1,000 mg PO Q8H PRN allopurinol 200 mg (2 x 100 mg) PO DAILY allopurinol 600 mg (2 x 300 mg) PO DAILY apixaban (Eliquis) 5 mg PO BID cane As directed colchicine 0.6 mg PO BID cyclobenzaprine 10 mg PO Q8H diclofenac sodium 1% (Voltaren Arthritis Pain) 4 grams topical QID PRN gabapentin 200 mg (2 x 100 mg) PO BID hydrochlorothiazide 12.5 mg PO QAM losartan 100 mg PO QAM losartan 50 mg PO QAM oxycodone 5 mg PO TID PRN pantoprazole 40 mg PO DAILY@0630 phenobarbital 194.4 mg PO BEDTIME phenytoin sodium extended (Dilantin Extended) 200 mg PO BID@0900,1600 prednisone 5 mg PO DAILY sumatriptan succinate 100 mg PO Q4H PRN HPI HPI Comments History of Present Illness Details The patient returns for evaluation of tophaceous gout. He remains on allopurinol at 800 mg daily, colchicine 0.6 b.i.d., prednisone 5 mg daily, and canakinumab p.r.n. was put on hold. The patient reports he is in constant pain with swelling to multiple joints. The patient does not think all the pain and swelling is related to gout but also because RA treatments were stopped. He says the RA treatment stopped because his gout attack started and they thought he had gout instead of RA. But he thinks he has both. Patient says he was do ing well on the RA medication for several years before the gout attacks started. The gout attack he says is usually in his elbow and Ilaris helps when it is bad. He says his bilateral hands however remains swollen and tender and continues to get worse. [facility] Medical History (Updated 05/18/23 @ 20:47 by SAMIRA Munguia) Spinal stenosis of lumbar region at multiple levels Screening examination for infectious disease Chronic tophaceous gout Right leg DVT Rheumatoid arthritis Tachycardia Lumbar radiculopathy HTN (hypertension) Rheumatoid arthritis Sleep apnea History of epilepsy Surgical History Hx of exploratory laparotomy Hx of bariatric surgery History of spinal surgery Family History Maternal Uncle Colon cancer Paternal Aunt Breast cancer Social History Household Members: Spouse Housing: Apartment Are you a primary hearing care professional to a significant other at home: Yes ( disabled) Do you presently have visiting nurse or other home services: No Alcohol intake: never Comment: bathroom Patient Tobacco Use Status: Never used Tobacco e-Cigarette/Vaping Use: Never Used service: No Current occupational status: disabled Review of Systems Const All systems reviewed & are unremarkable except as noted in HPI and below Physical Exam Vital Signs: Last Vital Signs Temp 97.8 F 05/14/23 12:23 Pulse 123 H 05/14/23 12:23 Resp 16 05/14/23 12:23 BP 130/78 05/14/23 12:23 Pulse Ox 95 05/14/23 12:23 Oxygen Delivery Method Room Air 05/14/23 12:23 BMI result Body Mass Index 47.3 APPEARANCE: Patient in no acute distress EXTREMITIES: No edema, no calf tenderness, normal peripheral pulses. Neuro: I do not detect any focal weakness. Reflexes are still suppressed throughout but symmetric. No sensory losses except perhaps in the feet. The JOINT EXAM: Hands: LEFT: Slight thickness, with marked tenderness at MCP 2, no warmth or erythema. Increased swelling and tenderness marked throughout the hand. Range of motion is diminished with less capacity to make a fist ? RIGHT:? Increased swelling swelling, tenderness, i throughout the hand.? Slight bony enlargement in the 4th PIP.? Range of motion is diminished with less capacity to make a fist Wrists:? LEFT:? No pain with flexion and extension.? Range of motion intact to about 60 degrees. Increased tenderness and swelling but no warmth or erythema. ? RIGHT:?? limited flexion and extension to about 30 degrees with some discomfort.? Increased swelling and tenderness, but no erythema or increased warmth. Elbows: LEFT:? Normal? pain-free range of motion.? No swelling, erythema, warmth but increase tenderness.? There is a thickened and nodular olecranon bursa.? RIGHT:? Normal pain free range of motion without swelling, increased warmth or erythema.? There is tenderness Shoulders:??LEFT:? Normal pain-free range of motion. ? RIGHT:? Normal pain-free range of motion. Knees:? Right:? Mild patellofemoral crepitus and slight pain with extremes of normal flexion extension.? There is moderate medial compartment tenderness without redness or effusion.? Left:? Full range of motion without pain.? There is some moderate patellofemoral crepitus and medial tenderness but no redness or effusion. Ankles: LEFT:? Unable to perform plantar flexion or dorsiflexion, this is chronic.? Moderate tenderness but no swelling, erythema or increased warmth noted. ? RIGHT: Normal range of motion.? No swelling, tenderness, erythema or increased warmth noted. ? Feet:? LEFT:? Mild 1st MTP bony enlargement without tenderness. Elsewhere there is no tenderness, swelling, erythema or increased warmth. ? RIGHT:? Full range of motion.? No tenderness, swelling, erythema or increased warmth. Office Meds canakinumab (PF) 150 mg/mL subcutaneous solution Performing Provider: MONI Munguia [place] [facility] Administered by: Sudha Calvert RN on 05/14/23 13:58 Dose Route Admin Location Dispensed Lot Number Expiration Date [facility] Doctor Podiatric Medicine 150 mg subcut left arm 1 mL [id number] 04/16/25 2894-2546-69 [employer] Results Reviewed Results Reviewed: Laboratory Tests 12/25/22 01/29/23 09:30 12:05 WBC 7.2 Hgb 15.0 ESR 7 Creatinine 0.87 Uric Acid 5.8 6.5 C-Reactive Protein 0.[address] [address] Magnetic Resonance Report Signed Patient: Gómez Pelletier MR#: [id number] : 1975 Acct:[id number] Age/Sex: 46 / M ADM Date: 06/05/[address]: Alex Carmen MD Ordering Physician: Alex Carmen MD Date of Service: 06/05/22 Procedure(s): MR lumbar spine wo/w con Accession Number(s): [id number] cc: Alex Carmen MD~ EXAMINATION: MR LUMBAR SPINE WITHOUT AND WITH CONTRAST CLINICAL INFORMATION: Post laminectomy syndrome. COMPARISON: MRI scan of the lumbar spine 12/20/2018. TECHNIQUE: MRI of the lumbar spine was obtained using routine sequences with and without contrast. Intravenous contrast: Gadavist 10 mL FINDINGS: VERTEBRAL BODIES AND PARASPINAL STRUCTURES: There is a mild levoscoliosis. There is a mild retrolisthesis of L2 on L3. There is multilevel narrowing of intervertebral disc height, most severe at L2-L3. There are multilevel degenerative endplate contour changes. Fatty endplate signal changes are seen at T11-T12. There are edematous endplate signal changes with enhancement at L2-L3, most prominent toward the left. There are prominent right-sided flowing osteophytes at T11-T12 and T12-L1. There are no acute fractures and vertebral body heights are maintained. There are Schmorl's nodes at adjacent endplates at multiple levels. Overall, marrow signal is slightly heterogenous. There are sequelae of laminectomies at L1-L2 and L2-L3. There is a small cyst at the midpole of the left kidney anteriorly. The infrarenal abdominal artery is slightly tortuous but no aneurysm is demonstrated. The visualized pelvic structures are unremarkable. CONUS MEDULLARIS AND CAUDA EQUINA: Normal, terminating at the level of L1. The lower thoracic spinal cord has normal signal and there is no abnormal enhancement. The filum terminale appears normal. There is crowding of the cauda equina nerve roots from central stenosis at multiple levels. There is no abnormal enhancement of the cauda equina nerve roots. SPINAL LEVELS: T12-L1: There is mild bilateral facet arthropathy. Disc contour is normal. There is no central stenosis or foraminal narrowing. L1-L2: There are sequelae of bilateral laminectomies, and is mild facet arthropathy. There is a central and left-sided disc protrusion, extruding into the left subarticular recess with marked narrowing, and with increased mass effect on the thecal sac compared to prior imaging. There is impingement on the traversing left L2 nerve root. There is no foraminal nerve root impingement. There is moderate to severe central stenosis on the current study. L2-L3: There are sequelae of bilateral laminectomies. There is moderate to severe facet arthropathy, increased on the right compared to prior imaging. There is a broad-based posterior disc protrusion with extrusion behind the body of L2 in the midline, similar compared to prior imaging. There is marked narrowing of the bilateral subarticular recesses with impingement on the traversing L3 nerve roots. There is severe central stenosis. There are bilateral foraminal disc protrusions without definite exiting nerve root impingement. L3-L4: There is moderate to severe bilateral facet arthropathy. There is a broad-based posterior disc protrusion with an extruded component extending behind the body of L4 centrally and to the right of midline, which is more prominent compared to prior imaging, and there is now severe compression of the thecal sac with severe central stenosis. There is narrowing of the bilateral subarticular recesses. There are right greater than left foraminal disc protrusions without definite exiting nerve root impingement. L4-L5: There is moderate to severe bilateral facet arthropathy with ligamenta flava hypertrophy. There is a central and left-sided disc protrusion extending into the left neural foramen and far laterally with impingement on the exiting and extraforaminal left L4 nerve root. On the right there is a disc protrusion with an annular tear extending far laterally with impingement on the extraforaminal right L4 nerve root, similar compared to prior imaging. There is marked narrowing of the left subarticular recess, and there is mild to moderate central stenosis. These findings have progressed compared to prior imaging. L5-S1: There is markedly severe left and severe right facet arthropathy. There is a posterior disc protrusion with an annular fissure which is most prominent centrally and toward the left extending into the left neural foramen with impingement on the exiting left L5 nerve root. There is narrowing of the left subarticular recess with impingement on the traversing left S1 nerve root. There is minimal central stenosis. MR/MR lumbar spine wo/w con IMPRESSION: 1. At L1-L2 there are sequelae of bilateral laminectomies. There is a central and left-sided disc protrusion/extrusion with increased mass effect on the thecal sac compared to prior imaging. There is impingement on the traversing left L2 nerve root. There is moderate to severe central stenosis on the current study. 2. At L2-L3 there are sequelae of bilateral laminectomies. There is a broad-based posterior disc protrusion/extrusion, similar compared to prior imaging. There is marked narrowing of the bilateral subarticular recesses with impingement on the traversing L3 nerve roots. There is severe central stenosis. 3. At L3-L4 there is facet arthropathy and there is a posterior disc protrusion/extrusion, more prominent compared to prior imaging. There is now severe compression of the thecal sac with severe central stenosis. 4. At L4-L5 there is facet arthropathy. There is a central and left-sided disc protrusion extending into the left neural foramen and far laterally with impingement on the exiting and extraforaminal left L4 nerve root. A right-sided disc protrusion extends far laterally with impingement on the extraforaminal right L4 nerve root. There is marked narrowing of the left subarticular recess and there is mild to moderate central stenosis. These findings have progressed compared to prior imaging. 5. The study redemonstrates facet arthropathy at L5-S1, with narrowing of the left neural foramen and subarticular recess with impingement on the exiting left L5 and traversing left S1 nerve roots. 01/2023 EXAMINATION: XR RIGHT KNEE XR LEFT KNEE XR LEFT HIP/PELVIS XR LEFT FOOT XR RIGHT FOOT CLINICAL INFORMATION: Status post fall with pain. COMPARISON: 12/08/2022 and 07/11/2021 TECHNIQUE: AP, lateral and oblique views of each foot. AP and frog-leg lateral views of the left hip. AP view of the pelvis. AP and lateral views of each knee. FINDINGS: Right foot: Decreased bone mineralization. Joint space narrowing of the first MTP joint with marginal osteophytes. Hypertrophic changes of the first metatarsal head. There are large dorsal intertarsal, tarsometatarsal and ankle mortise joint osteophytes with overlying soft tissue swelling.. There are moderate retrocalcaneal enthesophytes seen. There is loss of the subtalar joint space. No displaced fracture. Deformity likely an old healed fracture of the diaphysis fourth metatarsal. Marked medial midfoot/hindfoot soft tissue swelling. Left foot: Decreased bone mineralization. Joint space narrowing of the first MTP joint with marginal osteophytes. Hypertrophic changes of the first metatarsal head. There are large dorsal intertarsal, tarsometatarsal and ankle mortise joint osteophytes with overlying soft tissue swelling.. There are large retrocalcaneal enthesophytes seen. There is loss of the subtalar joint space. No displaced fracture. Diffuse soft tissue swelling. Right knee: Marked lateral tibiofemoral cartilage space loss and mild medial medial tibiofemoral cartilage space loss with marginal osteophytes. Lateral patellar subluxation. Marked patellofemoral cartilage space loss with marginal osteophytes. Trace suprapatellar joint effusion. Patellar tendon enthesopathy. Left knee: Moderate lateral tibiofemoral and mild medial tibiofemoral cartilage space loss with marginal osteophytes. Moderate patellofemoral cartilage space loss with marginal veins. Small suprapatellar joint effusion with loose bodies suspected. Left hip/pelvis: Alignment is anatomic. Left hip cartilage space is maintained. Os acetabuli. No displaced fracture or dislocation. XR/XR knee RT 2V IMPRESSION: As above. Dictated By: EHLENA POLO MD Signed By: <Electronically signed by HELENA POLO MD in OV> Laboratory Tests 01/29/23 12:05 WBC 7.2 RBC 4.48 L Hgb 15.0 Hct 43.6 MCV 97.3 ESR 7 Creatinine 0.87 Estimated GFR > 60 Uric Acid 6.5 C-Reactive Protein 0.71 H Assessment & Plan Assessment & Plan (1) Post laminectomy syndrome: Code(s): M96.1 - Postlaminectomy syndrome, not elsewhere classified (2) custodial use of drug: Code(s): Z79.899 - Other alf (current) drug therapy (3) Osteoarthritis of knees, bilateral: Code(s): M17.0 - Bilateral primary osteoarthritis of knee Qualifiers: Osteoarthritis type: primary Qualified Code(s): M17.0 - Bilateral primary osteoarthritis of knee (4) Chronic tophaceous gout: Comment: 02/2022: MSU crystals in aspirate of left olecranon 02/2022 Started on allopurinol, colchicine, prednisone 08/20/2022 Canakinumab add for acute gout prevention Code(s): M1A.9XX1 - Chronic gout, unspecified, with tophus (tophi) (5) Seropositive rheumatoid arthritis: Comment: Enbrel 2012-to April 2018 active disease on exam Humira April 2018-January 2021 active disease on exam Kevzara January 2021-present -placed on hold 03/06/2022 due to hospital adm ission for potential infection of the left elbow, final diagnosis olecranon gouty bursitis. The subsequent DMARD treatment for RA stopped. The patient was treated for tophaceous gout Code(s): M05.9 - Rheumatoid arthritis with rheumatoid factor, unspecified (6) Spinal stenosis of lumbar region at multiple levels: Code(s): M48.061 - Spinal stenosis, lumbar region without neurogenic claudication Plan #RA/gout: Based on patient's history and physical examination I think patient has active RA. I will restart his Kevzara and reassess. We will continue the treatment regimen for gout allopurinol 800 mg per day, colchicine b.i.d. and prednisone 5 mg daily for now. He desires an injection today of Illaris today. He has been without any for some time now and he says it gives him at least a week's worth of relief with reduced pain so I think it is reasonable to do 1 to day. I will obtain updated labs necessary to restart Kevzara and labs to recheck uric acid levels and acute phase reactants. # Long-term use: We will continue to monitor CBC, CMP, on immunosuppressant medications. Patient knows to hold the medication in the event of fevers, infections, illnesses, surgery, and nonhealing wound. #Post Lami Syndrome/spinal stenosis: At prior visit it was noted that he was the seek consultation from neuro concerning possible corrective surgery and so some medications were put on hold. He has not yet been able to meet with neuro but we will try to help him with that again. However, given the amount of RA pain that the patient is in we will restart his medication and modify care if necessary for surgery. I spent 45 minutes with the patient reviewing history, evaluating and assessing patient, and documenting Follow-up in 8 weeks 02/03/[address] Benson He has not had any gout attacks in some time. The prominence of the areas where I think he has tophaceous deposits is also less evident today. I think we can stop the canakinumab at this point. I will also reduce the prednisone to 5 mg daily. Uric acid level still occasionally floats of above 6 on 700 mg daily allopurinol so we will increase it the allopurinol to 800 mg. He will stay with the colchicine as above. Hopefully when he gets off the canakinumab and prednisone he would be a more suitable candidate for knee replacement surgery. The weakness in the legs could be due to deconditioning secondary to OA in the knees. However he says it is similar to what he had when he had the back problem so I think a recheck with his neurosurgeon might be helpful to exclude that possibility. He did have an MRI of the back earlier this year so I think that will probably suffice in terms of imaging before he sees the neurosurgeon. I told him to call up PT to see if he could get in to get some exercises to keep the knees as strong as he can. If we can get him off the prednisone then he would be a reasonable candidate to send to surgery for knee replacements. We will have him recheck with us with lab work before the visit in about 2 months. Orders: Orders T Spot TB 05/14/23 M05.9 - Rheumatoid arthritis with rheumatoid factor, unspecified, Z11.9 - Encounter for screening for infectious and parasitic diseases, unspecified Erythrocyte Sedimentation Rate 05/14/23 M05.9 - Rheumatoid arthritis with rheumatoid factor, unspecified, Z11.9 - Encounter for screening for infectious and parasitic diseases, unspecified Comprehensive Met. Panel 05/14/23 M05.9 - Rheumatoid arthritis with rheumatoid factor, unspecified, Z11.9 - Encounter for screening for infectious and pa rasitic diseases, unspecified AMB Canakinumab Injection Practice Supplied 05/14/23 M1A.9XX1 - Chronic gout, unspecified, with tophus (tophi) Immunoglobulins,IgG IgA IgM 05/14/23 M05.9 - Rheumatoid arthritis with rheumatoid factor, unspecified, Z11.9 - Encounter for screening for infectious and parasitic diseases, unspecified Complete Blood Count Auto Diff 05/14/23 M05.9 - Rheumatoid arthritis with rheumatoid factor, unspecified, Z11.9 - Encounter for screening for infectious and parasitic diseases, unspecified C Reactive Protein 05/14/23 M05.9 - Rheumatoid arthritis with rheumatoid factor, unspecified, Z11.9 - Encounter for screening for infectious and parasitic diseases, unspecified Hepatitis A,B,C Profile 05/14/23 M05.9 - Rheumatoid arthritis with rheumatoid factor, unspecified, Z11.9 - Encounter for screening for infectious and parasitic diseases, unspecified Uric Acid 05/14/23 M05.9 - Rheumatoid arthritis with rheumatoid factor, unspecified, Z11.9 - Encounter for screening for infectious and parasitic diseases, unspecified Coding Level of Care Code Est Pt Level 4 (65657) Diagnoses Post laminectomy syndrome M96.1 custodial use of drug Z79.899 Primary osteoarthritis of both knees M17.0 Osteoarthritis type: primary Chronic tophaceous gout M1A.9XX1 Seropositive rheumatoid arthritis M05.9 Spinal stenosis of lumbar region at multiple levels M48.061
== END 2023-05-14 13:35 | disposition home or self-care (01) ==
PROVIDERS: PCP Internal Medicine; Visit Provider Nurse Practitioner Family
DX: M1A.9XX1 Chronic gout, unspecified, with tophus (tophi) (principal); M05.79 Rheumatoid arthritis with rheumatoid factor of multiple sites without organ or systems involvement; Z79.899 Other long term (current) drug therapy; M96.1 Postlaminectomy syndrome, not elsewhere classified; M17.0 Bilateral primary osteoarthritis of knee; M48.061 Spinal stenosis, lumbar region without neurogenic claudication
CPT/HCPCS: 99214

== ENCOUNTER 2023-05-14 11:55 | Outpatient (REF) | payer MEDICAID, SELFPAY ==
[2023-05-14 14:16] LABS: MANUAL DIFF FLAG NO
[2023-05-14 15:13] LABS: Basophils Percent Auto 0.4 % (0-2); Eosinophils Absolute Auto 0.2 X10*3/uL (0.0-0.4); Eosinophils Percent Auto 2.2 % (0-4); Hematocrit 43.5 % (42.0-52.0); Hemoglobin 15.4 g/dl (14.0-18.0); Imm Gran Abs Auto 0.02 X10*3/uL (0.00-0.03); Imm Gran Pct Auto 0.3 % (0.0-0.4); Lymphocytes Absolute Auto 1.3 X10*3/uL (1.2-4.9); Lymphocytes Percent Auto 19.3 % (20-40); Mean Corpuscular HGB Conc 35.4 g/dl (31.0-36.0); Mean Corpuscular Hemoglobin 33.9 pg (27.0-33.0); Mean Corpuscular Volume 95.8 fL (80.0-98.0); Monocytes Absolute Auto 0.8 X10*3/uL (0.1-1.2); Monocytes Percent Auto 12.3 % (2-11); Neutrophils Absolute Auto 4.4 x10*3/uL (2.0-8.3); Neutrophils Percent Auto 65.5 % (45-73); Platelet Count 194 X10*3/uL (160-400); Red Blood Count 4.54 X10*6/uL (4.60-5.80); White Blood Count 6.7 X10*3/uL (4.8-10.8)
[2023-05-14 16:02] LABS: Erythrocyte Sedimentation Rate 14 MM/HR (0-15)
[2023-05-14 18:01] LABS: Alanine Aminotransferase 32 U/L (0-40); Albumin Level 4.3 g/dL (3.5-5.0); Alkaline Phosphatase 90 U/L (39-117); Anion Gap 10 (12-20); Aspartate Amino Transferase 23 U/L (5-37); Bilirubin Total 0.3 mg/dL (0.0-1.0); Blood Urea Nitrogen 12 mg/dL (9-16); C Reactive Protein 0.77 mg/dL (< or = 0.50); Calcium 10.6 mg/dL (8.4-10.2); Carbon Dioxide 29 mmol/L (22-29); Chloride 101 mmol/L (96-108); Estimated Glomerular Filt Rate > 60; Glucose Random 90 mg/dL (60-115); Potassium 3.4 mmol/L (3.3-5.1); Sodium 137 mmol/L (135-145); Total Protein 7.9 g/dL (6.5-8.0)
[2023-05-14 18:17] LABS: Uric Acid 5.6 mg/dL (3.4-7.0)
[2023-05-15 04:35] LABS: HBS Num1 0.44 mIU/mL (0-7.99); HBc Num1 0.06 S/CO (0.00-0.79); HBsAGNum1 0.62 S/CO (0.00-0.99); Hepatitis B Core Antibody Nonreactive (Nonreactive); Hepatitis B Surface Antigen Negative (Negative); ~HepC Num1 0.07 S/CO (0.00-0.79); ~Hepatitis B Surface Antibody NONREACTIVE (Nonreactive); ~Hepatitis C Antibody Nonreactive (Nonreactive)
[2023-05-15 04:54] LABS: Hepatitis A Antibody IgM 0.13 Index (0-0.79); ~Hepatitis A Antibody IgM Nonreactive (Nonreactive)
[2023-05-15 22:09] LABS: IgA 616 mg/dL (47-310); IgG 1037 mg/dL (600-1640); IgM 18 mg/dL (50-300)
[2023-05-17 15:38] LABS: TS Negative Control Passed; TS Panel A 0; TS Panel B 0; TS Positive Control Passed; TSpotTB Negative (Negative)
== END 2023-05-14 11:56 | disposition home or self-care (01) ==
LOC: HO.LAB 11:55
PROVIDERS: PCP Internal Medicine; Visit Provider Nurse Practitioner Family
DX: M05.9 Rheumatoid arthritis with rheumatoid factor, unspecified (principal); M1A.9XX1 Chronic gout, unspecified, with tophus (tophi); M25.50 Pain in unspecified joint; M96.1 Postlaminectomy syndrome, not elsewhere classified; M17.0 Bilateral primary osteoarthritis of knee; M48.061 Spinal stenosis, lumbar region without neurogenic claudication; Z11.9 Encounter for screening for infectious and parasitic diseases, unspecified; Z79.899 Other long term (current) drug therapy; Z79.52 Long term (current) use of systemic steroids
CPT/HCPCS: 36415; 80053; 82784; 84550; 85025; 85652; 86140; 86481; 86704; 86706; 86709; 86803; 87340; 96372; 99212; J0638

== ENCOUNTER 2023-08-05 12:22 | Outpatient (REF) | payer MEDICAID, SELFPAY ==
[2023-08-05 16:08] LABS: Phenytoin Dilantin 14.9 ug/mL (10.0-20.0)
== END 2023-08-05 12:23 | disposition home or self-care (01) ==
LOC: HO.LAB 12:22
PROVIDERS: PCP Internal Medicine; Visit Provider Registered Nurse
DX: R56.1 Post traumatic seizures (principal)
CPT/HCPCS: 36415; 80185

== ENCOUNTER 2023-08-26 12:54 | Emergency (ER) | payer MEDICAID, SELFPAY ==
--- NOTE | ~2023-08-26 | XR_ITS ---
EXAMINATION: XR KNEE, RIGHT CLINICAL INFORMATION: Atraumatic knee pain COMPARISON: None available. Gómez Pelletier date of 1975 TECHNIQUE: Four views of the right knee. FINDINGS: Bone alignment is normal. No fracture or dislocation. Severe tricompartment arthritis with joint space narrowing and osteophyte formation. Small joint effusion. XR/XR knee RT 3V IMPRESSION: Severe arthritis.
--- NOTE | ~2023-08-26 | XR_ITS ---
EXAMINATION: XR HIP, RIGHT CLINICAL INFORMATION: Dolores Pelletier 1975 COMPARISON: None available. TECHNIQUE: Two views of the right hip. One view of the pelvis FINDINGS: Bone alignment is normal. No fracture or dislocation. Normal joint space. Soft tissue calcification projects lateral to the right iliac bone. Bones of the pelvis are unremarkable. Soft tissue calcification or ossification adjacent to the superior lateral left hip joint. Degenerative changes of the lower lumbar spine. XR/XR hip RT w [id number] IMPRESSION: Normal right hip. Degenerative changes of the visualized lower lumbar spine.
[2023-08-26 14:36] VITALS: BP 107/76; PULSE 109; RESP 20; TEMP 36.6; O2SAT 96; BMI 48.1
--- NOTE | 2023-08-26 14:47 | ED.EXTPRO ---
HPI - Extremity Problem General Chief complaint: Extremity Problem Stated complaint: Bilateral knee/hip pain/Back pain Time Seen by Provider: 08/26/23 16:52 History of Present Illness ED Provider: Gokul Sorensen PA-C HPI Narrative: 47 yold male with pmh fo osetoarthrits, rheymathoid arteritis, GERD, HTN presents to the ED for chronic right knee exacerbation and right hip pain exacerbation. Patient denies any recent trauma, fever, chills, swelling, redness, bluish black discoloration, calf pain, chest pain, dysuria, hematuria, flank pain, abdominal pain, nausea, vomiting. Patient denies any testicular pain. Related Data Home Medications ?Medication ?Instructions ?Recorded ?Confirmed phenytoin sodium extended 100 mg 200 mg PO BID@0900,1600 02/07/20 03/19/23 capsule (Dilantin Extended) phenobarbital 97.2 mg tablet 194.4 mg PO BEDTIME 03/28/21 03/19/23 oxycodone 5 mg tablet 5 mg PO TID PRN Pain 06/11/21 03/19/23 pantoprazole 40 mg tablet,delayed 40 mg PO DAILY@0630 10/24/21 03/19/23 release acetaminophen 500 mg tablet 1,000 mg PO Q8H PRN pain 03/03/22 03/19/23 (Tylenol Extra Strength) diclofenac sodium 1 % topical gel 4 g topical QID PRN arthritis pain 03/03/22 03/19/23 (Voltaren Arthritis Pain) losartan 100 mg tablet 100 mg PO QAM 08/26/22 03/19/23 hydrochlorothiazide 12.5 mg tablet 12.5 mg PO QAM 12/09/22 03/19/23 losartan 50 mg tablet 50 mg PO QAM 12/09/22 03/19/23 sumatriptan succinate 100 mg tablet 100 mg PO Q4H PRN migraines 12/09/22 03/19/23 Previous Rx's ?Medication ?Instructions ?Recorded cyclobenzaprine 10 mg tablet 10 mg PO Q8H #20 tabs 07/26/20 cane #1 ea 02/01/21 allopurinol 300 mg tablet 600 mg (2 x 300 mg) PO DAILY #180 02/03/23 tabs prednisone 5 mg tablet 5 mg PO DAILY #30 tabs 04/02/23 colchicine 0.6 mg tablet 0.6 mg PO BID #180 tabs 05/12/23 sarilumab 200 mg/1.14 mL 200 mg (1.14 mL) subcut Q2W #2.28 05/18/23 subcutaneous pen injector (Kevzara) mL apixaban 5 mg tablet (Eliquis) 5 mg PO BID #60 tabs 07/21/23 allopurinol 100 mg tablet 200 mg (2 x 100 mg) PO DAILY #180 08/14/23 tabs gabapentin 100 mg capsule 200 mg (2 x 100 mg) PO BID #120 08/26/23 caps prednisone 20 mg tablet 40 mg (2 x 20 mg) PO DAILY 5 days 08/26/23 #10 tabs Allergies Allergy/AdvReac Type Severity Reaction Status Date / Time Sulfa (Sulfonamide Allergy Severe DIFFICULTY Verified 08/26/23 14:37 Antibiotics) BREATHING, [SULFA (SULFONAMIDE RASH, ANTIBIOTICS)] rash, hypertension Review of Systems Review of Systems: right hip and knee pain Yes all other systems are reviewed and are negative [facility] Past Medical History Medical History (Updated 08/26/23 @ 18:37 by BRADY Rene) Spinal stenosis of lumbar region at multiple levels Screening examination for infectious disease Chronic tophaceous gout Right leg DVT Rheumatoid arthritis Tachycardia Lumbar radiculopathy HTN (hypertension) Rheumatoid arthritis Sleep apnea History of epilepsy Surgical History Hx of exploratory laparotomy Hx of bariatric surgery History of spinal surgery Family History Family History Maternal Uncle Colon cancer Paternal Aunt Breast cancer Social History Social History Household Members: Spouse Housing: Apartment 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 ( disabled) Do you presently have visiting nurse or other home services: No Alcohol intake: never Comment: bathroom Patient Tobacco Use Status: Never used Tobacco e-Cigarette/Vaping Use: Never Used Advance Directives: No Advance Directives Information Provided: No Do you have a plan to hurt others: No Plan service: No Current occupational status: disabled Physical Exam Vital Signs: Vital Signs: Last Vital Signs Temp 97.9 F 08/26/23 19:03 Pulse 109 H 08/26/23 19:03 Resp 20 08/26/23 19:03 BP 107/76 08/26/23 19:03 Pulse Ox 96 08/26/23 19:03 O2 Del Method Room Air 08/26/23 19:03 BMI result Body Mass Index 48.1 Const: General: cooperative, healthy appearing, comfortable, no acute distress, well developed, alert, awake and Physically active Orientation/consciousness: oriented to person, oriented to place, oriented to time and patient oriented x3 HEENT: Head: Yes normal to inspection, Yes No palpable skull fracture present, Yes normocephalic, Yes atraumatic and No abrasion Eyes: General: appearance normal, both eyes and all related structures Neck: Neck: Yes normal visual inspection, Yes full ROM, Yes no lymphadenopathy, Yes no meningeal signs, Yes trachea midline, Yes supple, No anterior neck swelling and No tender Chest: Chest palpation & inspection: normal inspection of the chest and normal palpation of entire chest wall Resp: Effort & Inspection: normal respiratory effort and able to speak in complete sentences Auscultation: clear to auscultation bilaterally Cardio: Jugular venous distension: no JVD Heart sounds: S1 normal heart sound present and S2 normal heart sound present GI: Inspection: Yes normal to inspection Palpation (GI): Soft to palpation, not firm, nontender, no guarding and not rigid : General: Yes no CVA tenderness Back/Spine/Pelvis: Back: no CVA tenderness and back tenderness (lumbar spine tenderness. ) Skin: Other: rigth toe celluliits Neuro: General: oriented to person, oriented to place, oriented to time, patient oriented x3, gait normal, tone normal, moves all extremities, Normal light touch and pain sensation, no meningeal signs, no focal motor deficits, CN's II-XI intact bilaterally and normal sensation to monofilament Extrem: General: Yes normal to inspection and Yes full ROM Upper/lower leg/hip images: 1. Positive for tenderness on palpation. Negative for crepitus, ecchymosis, deformity, erythema, swelling, rest of extremity normal. Motor/neuro/vascular exam intact. Knee images: 1. Positive for anterior knee tenderness on palpation. Negative for erythema, crepitus, ecchymosis, swelling, deformity, or stiffness. Patient has range of motion of knee intact. Rest of extremity normal. Motor/neuro/vascular exam intact. Psych: Appearance: grossly normal, well kempt and not disheveled Course Course Course Narrative: This is a Rapid Medical Examination (RME) performed by Xi Shi PA-C in triage. Full HPI, ROS, assessment and treatment plan per primary provider in the Main ED. 47-year-old male with history hypertension, osteoarthritis, rheumatoid arthritis, epilepsy, [id number] here for eval of acute on chronic right knee and right hip pain x3 days. Denies injury or trauma. Reports taking Tylenol and 5 mg oxycodone at home. Presents in wheelchair d/t pain. tearful in triage. No overlying swelling noted to right knee. Unable to examine hip and triage. Plan: xrs ordered Medications Administered Discontinued Medications Generic Name Dose Route Start Last Admin Trade Name Freq PRN Reason Stop Dose Admin Ketorolac Tromethamine 30 mg 08/26/23 17:52 08/26/23 18:18 Ketorolac Tromethamine 30 Mg/Ml Vial IM 08/26/23 17:53 30 mg ONCE ONE Administration Prednisone 60 mg 08/26/23 17:52 08/26/23 18:17 Prednisone 20 Mg Tablet PO 08/26/23 17:53 60 mg ONCE ONE Administration Tramadol HCl 50 mg 08/26/23 17:52 08/26/23 18:17 Tramadol Hcl 50 Mg Tablet PO 08/26/23 17:53 50 mg ONCE ONE Administration Medical Decision Making Medical Decision Making MDM Narrative: 47 yold Male presents to the ED for chronic right hip and right knee pain exacerbation without any trauma. Patient denies any urinary/ bowel incontinence. Patient denies any IV drug use. Patient is on pain control management has a contract can not be prescribe narcotics. X-rays show arthritis. Not suspect a septic joint. Not suspecting fracture. Not suspecting tenosynovitis. Not suspecting UTI kidney stones. Toradol tramadol prednisone ordered. patient feels better after receiving meds Differential Diagnosis Differential Diagnoses: The differential diagnosis associated with the presentation includes ( knee dislocation, knee fracture, hip dislocation, hip fracture, arthritis) Admission/Observation Consideration of admission/observation: Escalation of care including admission/observation considered Radiology Impression Discussion of test interpretation with radiology: I have reviewed the radiologist's reading. Independent Historian Clinical information obtained from an independent historian. History obtained from or confirmed by: Other ( patient) External Record Review External record reviewed: Other (prior visits) Prescription Management I considered prescription management with: Pain Medication Discharge Plan Discharge Clinical Impression: Lumbar radiculopathy, Osteoarthritis of knee, Joint effusion of knee Patient Disposition: Home, Self-Care Instructions: Osteoarthritis (ED), Lumbar Radiculopathy (ED), Swollen Knee Joint (ED) Additional Instructions: recommend follow-up with your pain management clinic and orthopedic surgeon. I will not be able to prescribe narcotics due to you being already on oxycodone and having contract with pain management clinic. You will be discharged with steroids. Due to being on Eliquis I can not discharged with any NSAIDs. Return to the ED immediately for any swelling, redness, knee stiffness, fever, chills, back pain, urinary / bowel incontinence, dysuria, hematuria, abdominal pain, calf pain, swelling, bluish black discoloration, or any other concerning symptoms. Prescriptions: New prednisone 20 mg tablet 40 mg PO DAILY 5 Days Qty: 10 0RF No Action (DME) cane Device See Rx Instructions .Route Qty: 1 0RF Rx Instructions: As directed oxycodone 5 mg tablet 5 mg PO TID PRN (Reason: Pain) prednisone 5 mg tablet 5 mg PO DAILY Qty: 30 3RF colchicine 0.6 mg tablet 0.6 mg PO BID Qty: 180 1RF Kevzara 200 mg/1.14 mL pen injector 200 mg subcut Q2W Qty: 2.28 3RF Eliquis 5 mg tablet 5 mg PO BID Qty: 60 5RF allopurinol 100 mg tablet 200 mg PO DAILY Qty: 180 3RF Rx Instructions: To be taken with the twice a day with two 300 mg allopurinol tablets -total daily dose 800 mg gabapentin 100 mg capsule 200 mg PO BID Qty: 120 3RF phenytoin sodium extended [Dilantin Extended] 100 mg Capsule 200 mg PO BID@0900,1600 phenobarbital 97.2 mg tablet 194.4 mg PO BEDTIME cyclobenzaprine 10 mg tablet 10 mg PO Q8H Qty: 20 0RF acetaminophen [Tylenol Extra Strength] 500 mg tablet 1,000 mg PO Q8H PRN (Reason: pain) diclofenac sodium [Voltaren Arthritis Pain] 1 % gel 4 g topical QID PRN (Reason: arthritis pain) Rx Instructions: apply to hands, single knee, ankle, foot; for foot includes sole/toes/top of foot pantoprazole 40 mg tablet,delayed release (DR/EC) 40 mg PO DAILY@0630 losartan 50 mg tablet 50 mg PO QAM hydrochlorothiazide 12.5 mg tablet 12.5 mg PO QAM sumatriptan succinate 100 mg tablet 100 mg PO Q4H PRN (Reason: migraines) allopurinol 300 mg tablet 600 mg PO DAILY Qty: 180 2RF Rx Instructions: take two 300mg po with two 100mg to equal 800mg po daily losartan 100 mg tablet 100 mg PO QAM Referrals: [facility] [Provider Group] ( Severe knee arthritis with joint effusion) Interventions: ED Discharge Assessment Last Done: 08/26/23 19:03 Discharge Date/Time: 08/26/23 19:03 Print Language: Ukrainian
[2023-08-26] MEDS: traMADoL HCL 50 MG TABLET PO (18:17)
[2023-08-26] MEDS: predniSONE 20 MG TABLET 60 MG PO (18:17)
[2023-08-26] MEDS: Ketorolac Tromethamine 30 MG/ML VIAL IM (18:18)
[2023-08-26 19:03] VITALS: BP 107/76; PULSE 109; RESP 20; TEMP 36.6; O2SAT 96
== END 2023-08-26 19:03 | disposition home or self-care (01) ==
PROVIDERS: Emergency Provider Internal Medicine; PCP Internal Medicine
DX: M25.561 Pain in right knee (principal); M25.562 Pain in left knee; M54.50 Low back pain, unspecified; M25.552 Pain in left hip; M25.551 Pain in right hip; Z79.899 Other long term (current) drug therapy
CPT/HCPCS: 73502; 73562; 96372; 99283; 99284; J1885

== ENCOUNTER 2023-09-12 09:56 | Outpatient (AMB) | payer MEDICAID, SELFPAY ==
--- NOTE | 2023-09-12 10:04 | MHC.OFFVIS ---
Vital Signs 09/12/23 10:24 Height 5 ft 10 in Weight 328 lb 7.82 oz BMI 47.1 BP 118/68 Blood Pressure Location Rt brachial Position Sitting Pulse 109 H Pulse Source Pulse Oximeter Pulse Oximetry (%) 96 Oxygen Delivery Method Room Air Intake Visit Reasons: gout/cm Intake Note: Pt last seen by Katie presents today for follow up. Reports being seen in ED for knee pain; Will need R knee surgery, following with Dr Castelan. Currently on allopurinol 700mg, colchicine bid and prednsione 5mg. Chipper Operator Required: Yes Chipper Operator Name: Ryanne [id number] Accompanied by: Self / Same As Patient Allergies Sulfa (Sulfonamide Antibiotics) [SULFA (SULFONAMIDE ANTIBIOTICS)] Allergy (Severe, Verified 09/12/23 10:21) DIFFICULTY BREATHING, RASH, rash, hypertension Medication List - Last Reconciled 09/12/23 by Georgina Aguayo MD acetaminophen (Tylenol Extra Strength) 1,000 mg PO Q8H PRN allopurinol 600 mg (2 x 300 mg) PO DAILY allopurinol 100 mg PO DAILY apixaban (Eliquis) 5 mg PO BID cane As directed colchicine 0.6 mg PO BID cyclobenzaprine 10 mg PO Q8H diclofenac sodium 1% (Voltaren Arthritis Pain) 4 grams topical QID PRN gabapentin 200 mg (2 x 100 mg) PO BID hydrochlorothiazide 12.5 mg PO QAM Kevzara (sarilumab) 200 mg (1.14 mL) subcut Q2W NS losartan 100 mg PO QAM losartan 50 mg PO QAM oxycodone 5 mg PO TID PRN pantoprazole 40 mg PO DAILY@0630 phenobarbital 194.4 mg PO BEDTIME phenytoin sodium extended (Dilantin Extended) 200 mg PO BID@0900,1600 prednisone 5 mg PO DAILY sumatriptan succinate 100 mg PO Q4H PRN HPI Comments Details: This is a 47-year-old male with tophaceous gout and rheumatoid arthritis who presents for follow-up. He went to the emergency room recently due to severe right knee pain. He was found to have severe knee osteoarthritis and was told that he needs surgery. He was scheduled with Orthopedics. He states that his rheumatoid arthritis is better controlled overall since he was restarted on Kevzara 3 months ago however he continues to have multiple joint pain and swelling ankylosing his, wrists, hands ankles. He states that the Ghanshyam works well for 5-7 days then all the pain starts coming back. Has not had any gout flare-up recently FORMERLY [facility], [facility] Medical History Spinal stenosis of lumbar region at multiple levels Screening examination for infectious disease Chronic tophaceous gout Right leg DVT Rheumatoid arthritis Tachycardia Lumbar radiculopathy HTN (hypertension) Rheumatoid arthritis Sleep apnea History of epilepsy Surgical History Hx of exploratory laparotomy Hx of bariatric surgery History of spinal surgery Family History Maternal Uncle Colon cancer Paternal Aunt Breast cancer Social History Household Members: Spouse Housing: Apartment Are you a primary senior care manager to a significant other at home: Yes ( disabled) Do you presently have visiting nurse or other home services: No Alcohol intake: never Comment: bathroom Patient Tobacco Use Status: Never used Tobacco e-Cigarette/Vaping Use: Never Used service: No Current occupational status: disabled Review of Systems Musc Reports arthralgias, Reports joint swelling, Reports limited range of motion and Reports stiffness Physical Exam Vital Signs: Last Vital Signs Pulse 109 H 09/12/23 10:24 BP 118/68 09/12/23 10:24 Pulse Ox 96 09/12/23 10:24 Oxygen Delivery Method Room Air 09/12/23 10:24 BMI result Body Mass Index 47.1 Const General: cooperative, healthy appearing and comfortable Nutritional Appearance: obese morbidly obese Orientation/consciousness: patient oriented x3 Limitations: no limitations HEENT Head: Yes normocephalic and Yes atraumatic Mouth: moist mucous membranes Resp Effort & Inspection: normal respiratory effort and able to speak in complete sentences Auscultation: clear to auscultation bilaterally Skin General skin exam: no rashes or lesions noted Neuro General: patient oriented x3 Extrem Other: Mild right wrist swelling and almost no range of motion. No flexion or extension of right wrist Diffusely tender 2nd through 5th MCPs right hand Right 2nd through 5th flexor tendon tenderness. Significantly weak right hand superintendent distribution strength Left wrist swelling and tenderness, pain with any range of motion Second through 5th MCP swelling and tenderness Very weak hand superintendent distribution strength Significantly limited range of motion of both knees, worse on the right, but no overlying swelling Right ankle warmth, swelling and tenderness Left ankle swelling but no tenderness Results Reviewed Results Reviewed: Laboratory Tests [address] [address] Magnetic Resonance Report Signed Patient: Gómez Pelletier MR#: [id number] : 1975 Acct:[id number] Age/Sex: 46 / M ADM Date: 06/05/[address]: Alex Carmen MD Ordering Physician: Alex Carmen MD Date of Service: 06/05/22 Procedure(s): MR lumbar spine wo/w con Accession Number(s): [id number] cc: Alex Carmen MD~ EXAMINATION: MR LUMBAR SPINE WITHOUT AND WITH CONTRAST CLINICAL INFORMATION: Post laminectomy syndrome. COMPARISON: MRI scan of the lumbar spine 12/20/2018. TECHNIQUE: MRI of the lumbar spine was obtained using routine sequences with and without contrast. Intravenous contrast: Gadavist 10 mL FINDINGS: VERTEBRAL BODIES AND PARASPINAL STRUCTURES: There is a mild levoscoliosis. There is a mild retrolisthesis of L2 on L3. There is multilevel narrowing of intervertebral disc height, most severe at L2-L3. There are multilevel degenerative endplate contour changes. Fatty endplate signal changes are seen at T11-T12. There are edematous endplate signal changes with enhancement at L2-L3, most prominent toward the left. There are prominent right-sided flowing osteophytes at T11-T12 and T12-L1. There are no acute fractures and vertebral body heights are maintained. There are Schmorl's nodes at adjacent endplates at multiple levels. Overall, marrow signal is slightly heterogenous. There are sequelae of laminectomies at L1-L2 and L2-L3. There is a small cyst at the midpole of the left kidney anteriorly. The infrarenal abdominal artery is slightly tortuous but no aneurysm is demonstrated. The visualized pelvic structures are unremarkable. CONUS MEDULLARIS AND CAUDA EQUINA: Normal, terminating at the level of L1. The lower thoracic spinal cord has normal signal and there is no abnormal enhancement. The filum terminale appears normal. There is crowding of the cauda equina nerve roots from central stenosis at multiple levels. There is no abnormal enhancement of the cauda equina nerve roots. SPINAL LEVELS: T12-L1: There is mild bilateral facet arthropathy. Disc contour is normal. There is no central stenosis or foraminal narrowing. L1-L2: There are sequelae of bilateral laminectomies, and is mild facet arthropathy. There is a central and left-sided disc protrusion, extruding into the left subarticular recess with marked narrowing, and with increased mass effect on the thecal sac compared to prior imaging. There is impingement on the traversing left L2 nerve root. There is no foraminal nerve root impingement. There is moderate to severe central stenosis on the current study. L2-L3: There are sequelae of bilateral laminectomies. There is moderate to severe facet arthropathy, increased on the right compared to prior imaging. There is a broad-based posterior disc protrusion with extrusion behind the body of L2 in the midline, similar compared to prior imaging. There is marked narrowing of the bilateral subarticular recesses with impingement on the traversing L3 nerve roots. There is severe central stenosis. There are bilateral foraminal disc protrusions without definite exiting nerve root impingement. L3-L4: There is moderate to severe bilateral facet arthropathy. There is a broad-based posterior disc protrusion with an extruded component extending behind the body of L4 centrally and to the right of midline, which is more prominent compared to prior imaging, and there is now severe compression of the thecal sac with severe central stenosis. There is narrowing of the bilateral subarticular recesses. There are right greater than left foraminal disc protrusions without definite exiting nerve root impingement. L4-L5: There is moderate to severe bilateral facet arthropathy with ligamenta flava hypertrophy. There is a central and left-sided disc protrusion extending into the left neural foramen and far laterally with impingement on the exiting and extraforaminal left L4 nerve root. On the right there is a disc protrusion with an annular tear extending far laterally with impingement on the extraforaminal right L4 nerve root, similar compared to prior imaging. There is marked narrowing of the left subarticular recess, and there is mild to moderate central stenosis. These findings have progressed compared to prior imaging. L5-S1: There is markedly severe left and severe right facet arthropathy. There is a posterior disc protrusion with an annular fissure which is most prominent centrally and toward the left extending into the left neural foramen with impingement on the exiting left L5 nerve root. There is narrowing of the left subarticular recess with impingement on the traversing left S1 nerve root. There is minimal central stenosis. MR/MR lumbar spine wo/w con IMPRESSION: 1. At L1-L2 there are sequelae of bilateral laminectomies. There is a central and left-sided disc protrusion/extrusion with increased mass effect on the thecal sac compared to prior imaging. There is impingement on the traversing left L2 nerve root. There is moderate to severe central stenosis on the current study. 2. At L2-L3 there are sequelae of bilateral laminectomies. There is a broad-based posterior disc protrusion/extrusion, similar compared to prior imaging. There is marked narrowing of the bilateral subarticular recesses with impingement on the traversing L3 nerve roots. There is severe central stenosis. 3. At L3-L4 there is facet arthropathy and there is a posterior disc protrusion/extrusion, more prominent compared to prior imaging. There is now severe compression of the thecal sac with severe central stenosis. 4. At L4-L5 there is facet arthropathy. There is a central and left-sided disc protrusion extending into the left neural foramen and far laterally with impingement on the exiting and extraforaminal left L4 nerve root. A right-sided disc protrusion extends far laterally with impingement on the extraforaminal right L4 nerve root. There is marked narrowing of the left subarticular recess and there is mild to moderate central stenosis. These findings have progressed compared to prior imaging. 5. The study redemonstrates facet arthropathy at L5-S1, with narrowing of the left neural foramen and subarticular recess with impingement on the exiting left L5 and traversing left S1 nerve roots. 01/2023 EXAMINATION: XR RIGHT KNEE XR LEFT KNEE XR LEFT HIP/PELVIS XR LEFT FOOT XR RIGHT FOOT CLINICAL INFORMATION: Status post fall with pain. COMPARISON: 12/08/2022 and 07/11/2021 TECHNIQUE: AP, lateral and oblique views of each foot. AP and frog-leg lateral views of the left hip. AP view of the pelvis. AP and lateral views of each knee. FINDINGS: Right foot: Decreased bone mineralization. Joint space narrowing of the first MTP joint with marginal osteophytes. Hypertrophic changes of the first metatarsal head. There are large dorsal intertarsal, tarsometatarsal and ankle mortise joint osteophytes with overlying soft tissue swelling.. There are moderate retrocalcaneal enthesophytes seen. There is loss of the subtalar joint space. No displaced fracture. Deformity likely an old healed fracture of the diaphysis fourth metatarsal. Marked medial midfoot/hindfoot soft tissue swelling. Left foot: Decreased bone mineralization. Joint space narrowing of the first MTP joint with marginal osteophytes. Hypertrophic changes of the first metatarsal head. There are large dorsal intertarsal, tarsometatarsal and ankle mortise joint osteophytes with overlying soft tissue swelling.. There are large retrocalcaneal enthesophytes seen. There is loss of the subtalar joint space. No displaced fracture. Diffuse soft tissue swelling. Right knee: Marked lateral tibiofemoral cartilage space loss and mild medial medial tibiofemoral cartilage space loss with marginal osteophytes. Lateral patellar subluxation. Marked patellofemoral cartilage space loss with marginal osteophytes. Trace suprapatellar joint effusion. Patellar tendon enthesopathy. Left knee: Moderate lateral tibiofemoral and mild medial tibiofemoral cartilage space loss with marginal osteophytes. Moderate patellofemoral cartilage space loss with marginal veins. Small suprapatellar joint effusion with loose bodies suspected. Left hip/pelvis: Alignment is anatomic. Left hip cartilage space is maintained. Os acetabuli. No displaced fracture or dislocation. XR/XR knee RT 2V IMPRESSION: As above. Dictated By: HELENA POLO MD Signed By: <Electronically signed by HELENA POLO MD in OV> Laboratory Tests 01/29/23 12:05 WBC 7.2 RBC 4.48 L Hgb 15.0 Hct 43.6 MCV 97.3 ESR 7 Creatinine 0.87 Estimated GFR > 60 Uric Acid 6.5 C-Reactive Protein 0.71 H Assessment & Plan Assessment & Plan (1) Seropositive rheumatoid arthritis: Comment: Joelbrel 2012-to April 2018 active disease on exam Humira April 2018-January 2021 active disease on exam Ghanshyam January 2021-present -placed on hold 03/06/2022 due to hospital admission for potential infection of the left elbow, final diagnosis olecranon gouty bursitis. The subsequent DMARD treatment for RA stopped. The patient was treated for tophaceous gout Kevzara restarted 05/2023 not effective Code(s): M05.9 - Rheumatoid arthritis with rheumatoid factor, unspecified Category: Medical Plan: This is a 47-year-old male with seropositive RA who presents for follow-up. This is her 1st visit with me. On Kevzara every other week. Prednisone 5 mg daily. On exam patient patient has multiple swollen and tender joints. Kevzara provides some relief for 2-5 days only. Will need to switch DMARDs. Discussed risks and benefits of Actemra. Patient agreed to proceed. Will start prior authorization for Actemra Labs before next visit in 3 months (2) Chronic tophaceous gout: Comment: 02/2022: MSU crystals in aspirate of left olecranon 02/2022 Started on allopurinol, colchicine, prednisone 08/20/2022 Canakinumab add for acute gout prevention Code(s): M1A.9XX1 - Chronic gout, unspecified, with tophus (tophi) Category: Medical Plan: Gout is well controlled on allopurinol 700 mg daily, colchicine 0.6 mg Twice daily and prednisone 5 mg daily. Continue current meds. 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 He was scheduled with Orthopedics Plan I spent 46 minutes reviewing patient's chart, evaluating patient, ordering diagnostic workup, counseling patient and documenting in the chart Orders: Orders Complete Blood Count Auto Diff 3 Months Georgina Aguayo MD M05.9 - Rheumatoid arthritis with rheumatoid factor, unspecified Comprehensive Met. Panel 3 Months Georgina Aguayo MD M05.9 - Rheumatoid arthritis with rheumatoid factor, unspecified C Reactive Protein 3 Months Georgina Aguayo MD M05.9 - Rheumatoid arthritis with rheumatoid factor, unspecified Erythrocyte Sedimentation Rate 3 Months Georgina Aguayo MD M05.9 - Rheumatoid arthritis with rheumatoid factor, unspecified Medications: Changed From allopurinol To be taken with the twice a day with two 300 mg allopurinol tablets -total daily dose 800 mg 200 mg (2 x 100 mg) PO DAILY 180 tabs 3RF To allopurinol To be taken with the twice a day with two 300 mg allopurinol tablets -total daily dose 800 mg 100 mg PO DAILY GERARD Munguia- Coding Level of Care Code Est Pt Level 5 (70781) Complex EM visit Add On G2211 Diagnoses Seropositive rheumatoid arthritis M05.9 Chronic tophaceous gout M1A.9XX1 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
[2023-09-12 10:24] VITALS: BP 118/68; PULSE 109; O2SAT 96; BMI 47.1
== END 2023-09-12 10:49 | disposition home or self-care (01) ==
PROVIDERS: PCP Internal Medicine; Visit Provider Student in an Organized Health Care Education/Training Program
DX: M05.79 Rheumatoid arthritis with rheumatoid factor of multiple sites without organ or systems involvement (principal); M1A.9XX1 Chronic gout, unspecified, with tophus (tophi); Z79.899 Other long term (current) drug therapy; M17.0 Bilateral primary osteoarthritis of knee
CPT/HCPCS: 99215

== ENCOUNTER → 2023-09-12 09:56 | Outpatient (BNVA) | payer MEDICAID, SELFPAY | PROVIDERS: PCP Internal Medicine; Visit Provider Student in an Organized Health Care Education/Training Program | DX: M05.9 Rheumatoid arthritis with rheumatoid factor, unspecified (principal); M1A.9XX1 Chronic gout, unspecified, with tophus (tophi); M17.0 Bilateral primary osteoarthritis of knee; Z79.899 Other long term (current) drug therapy | CPT/HCPCS: 99212 ==

== ENCOUNTER 2023-09-26 07:21 | Outpatient (REF) | payer MEDICAID, SELFPAY ==
--- NOTE | ~2023-09-26 | XR_ITS ---
EXAMINATION: XR KNEE, RIGHT XR LEFT KNEE CLINICAL INFORMATION: Pain unspecified knee. COMPARISON: 08/26/2023 right knee and 01/16/2023 bilateral knee x-rays. TECHNIQUE: AP standing view of bilateral knees. [place] view of the right knee. FINDINGS: AP standing view of the left knee demonstrates moderate narrowing of the medial compartment and [id number] narrowing of the lateral compartment. Medial and lateral marginal osteophytes. AP standing view of the right knee demonstrates marked narrowing of the lateral compartment and moderate narrowing of the medial compartment. Lateral and medial marginal osteophytes. [place] view of the right knee demonstrates narrowing of the joint space with hypertrophic change. XR/XR knee LT 3V IMPRESSION: [id number]-[id number] degenerative changes bilateral knees.
--- NOTE | ~2023-09-26 | XR_ITS ---
EXAMINATION: XR KNEE, RIGHT XR LEFT KNEE CLINICAL INFORMATION: Pain unspecified knee. COMPARISON: 08/26/2023 right knee and 01/16/2023 bilateral knee x-rays. TECHNIQUE: AP standing view of bilateral knees. [place] view of the right knee. FINDINGS: AP standing view of the left knee demonstrates moderate narrowing of the medial compartment and [id number]-[id number] narrowing of the lateral compartment. Medial and lateral marginal osteophytes. AP standing view of the right knee demonstrates marked narrowing of the lateral compartment and moderate narrowing of the medial compartment. Lateral and medial marginal osteophytes. [place] view of the right knee demonstrates narrowing of the joint space with hypertrophic change. XR/XR knee RT 1V IMPRESSION: Ocbictrr-gy-juwdru degenerative changes bilateral knees.
== END 2023-09-26 07:22 | disposition home or self-care (01) ==
LOC: HO.HOSX 07:21
PROVIDERS: Visit Provider Physician Assistant
DX: M17.0 Bilateral primary osteoarthritis of knee (principal); R60.9 Edema, unspecified; Z79.01 Long term (current) use of anticoagulants
CPT/HCPCS: 73560; 73562; 99212

== ENCOUNTER 2023-09-26 10:57 | Outpatient (AMB) | payer MEDICAID, SELFPAY ==
--- NOTE | 2023-09-26 11:33 | MHC.OFFVIS ---
Intake Visit Reasons: Newprob-Swollen Knee Joint, B/L knee Intake Note: Gómez is a 47 year old male who presents today for a evaluation of his bilateral knee pain. Patient reports he was last seen with NE and discussed about doing a right TKA. He would like to talk more about moving forward with the process. Patient is also having left knee pain but is not as bad as his right knee. Allergies Sulfa (Sulfonamide Antibiotics) [SULFA (SULFONAMIDE ANTIBIOTICS)] Allergy (Severe, Verified 09/12/23 10:21) DIFFICULTY BREATHING, RASH, rash, hypertension HPI HPI Newprob-Swollen Knee Joint, B/L knee: Details: 47-year-old male, who is [place] speaking, presents in the office today for an evaluation of bilateral knee edema. The patient presented to the ED in a wheelchair on 08/27/2023 with a complaint of chronic right knee exacerbation and right hip pain, which began on 08/24/2023. X-rays were obtained. The patient was prescribed prednisone 40 mg PO daily.? ? ?Patient is on a pain control management with a contract and cannot be prescribed narcotics?, Per ED note from 08/27/2023.? ? While in the office today, the patient reports he was last seen by Dr. Castelan and they discussed a right total knee arthroplasty. He would like to further discuss this and move forward with the procedure. ? ? Patient reports left knee pain, however, states this is not as bad as the right knee. ? ? Patient has a BMI of 47.1 as of 09/12/2023.? ? Patient is currently followed by Rheumatology for treatment of tophaceous gout and rheumatoid arthritis.? ? Patient is currently taking a blood thinner, Eliquis.? ?? Patient has a medical history, as follows:?? -Post-laminectomy syndrome? -Chronic tophaceous gout? -Seropositive rheumatoid arthritis? -Spinal stenosis of lumbar region at multiple levels? -Right leg DVT? -Tachycardia? -Lumbar radiculpathy? -Hypertension? -Sleep apnea? -History of epilepsy? PFSH Medical History Spinal stenosis of lumbar region at multiple levels Screening examination for infectious disease Chronic tophaceous gout Right leg DVT Rheumatoid arthritis Tachycardia Lumbar radiculopathy HTN (hypertension) Rheumatoid arthritis Sleep apnea History of epilepsy Surgical History Hx of exploratory laparotomy Hx of bariatric surgery History of spinal surgery Family History Maternal Uncle Colon cancer Paternal Aunt Breast cancer Social History Household Members: Spouse Housing: Apartment Are you a primary animal caregiver to a significant other at home: Yes ( disabled) Do you presently have visiting nurse or other home services: No Alcohol intake: never Comment: bathroom Patient Tobacco Use Status: Never used Tobacco e-Cigarette/Vaping Use: Never Used service: No Current occupational status: disabled Review of Systems Const All systems reviewed & are unremarkable except as noted in HPI and below Physical Exam Const General: cooperative and no acute distress Orientation/consciousness: patient oriented x3 HEENT Head: Yes normal to inspection, Yes normocephalic and Yes atraumatic Mouth: moist mucous membranes Eyes General: appearance normal, both eyes and all related structures EOM: EOMs intact bilaterally Chest Other: no audible wheezing. Resp Other: No audible wheezing Effort & Inspection: normal respiratory effort and able to speak in complete sentences Cardio Other: Radial pulse palpable with no rythmic abnormalities Peripheral pulses: Peripheral pulses 2+ throughout Back/Spine/Pelvis Cervical Spine: normal cervical lordosis Skin General skin exam: no rashes or lesions noted Neuro General: patient oriented x3 Extrem Other: Right knee with marked valgus alignment with 1+ instability to valgus stress testing. MCL intact. Walks with antalgia. Tenderness to palpation lateral compartment. Psych Appearance: grossly normal and well kempt Mental Status: mental status grossly normal Speech and movement: Normal speech and movement present Affect: normal affect Attitude: cooperative Assessment & Plan Assessment & Plan (1) Osteoarthritis of left knee: Code(s): M17.12 - Unilateral primary osteoarthritis, left knee Category: Medical (2) Osteoarthritis of right knee: Code(s): M17.11 - Unilateral primary osteoarthritis, right knee Category: Medical Plan Mr. Pelletier is a 47-year-old male, who is [place] speaking, presents in the office today for an evaluation of bilateral knee edema. The patient presented to the ED in a wheelchair on 08/27/2023 with a complaint of chronic right knee exacerbation and right hip pain, which began on 08/24/2023. X-rays were obtained. The patient was prescribed prednisone 40 mg PO daily.? ? ?Patient is on a pain control management with a contract and cannot be prescribed narcotics?, Per ED note from 08/27/2023.? ? While in the office today, the patient reports he was last seen by Dr. Castelan and they discussed a right total knee arthroplasty. He would like to further discuss this and move forward with the procedure. ? ? Patient reports left knee pain, however, states this is not as bad as the right knee. ? ? Patient has a BMI of 47.1 as of 09/12/2023.? ? Patient is currently followed by Rheumatology for treatment of tophaceous gout and rheumatoid arthritis.? ? Patient is currently taking a blood thinner, Eliquis.? ?? Patient has a medical history, as follows:?? -Post-laminectomy syndrome? -Chronic tophaceous gout? -Seropositive rheumatoid arthritis? -Spinal stenosis of lumbar region at multiple levels? -Right leg DVT? -Tachycardia? -Lumbar radiculpathy? -Hypertension? -Sleep apnea? -History of epilepsy? ? I discussed in detail the procedure and what to expect pre and post operatively. We discussed the risks, benefits, alternatives to the surgery and the rehabilitation course. The risks include infection, bleeding, nerve injury, ongoing pain, swelling, and stiffness, perioperative risk of injury to bones and soft tissues, and blood clots.? ? ? The patient?s information was given to the surgical dental assistant, Emmanuelle, who was able to meet with the patient today to help with the process of a right total knee arthroplasty. He will continue to work on the process until he is ready to proceed with surgery. ? ? Follow-up will be with Dr. Castelan to further discuss a right total knee arthroplasty, or sooner if needed. ? ? X-rays of the bilateral knees which were obtained while in the office today and were reviewed by me, Estefany Drummond PA-C, revealed osteoarthritis. ? X-rays of the right knee, obtained on 08/26/2023, revealed: Severe arthritis. ? Orders: Orders XR knee LT 3V Today M25.569 - Pain in unspecified knee XR knee RT 1V Today M25.569 - Pain in unspecified knee Patient Instructions: Scribed by Saundra Payan, medical office rep, for Estefany Drummond PA-C on 09/26/2023 at 12:44 pm, EST.? Coding Level of Care Code Est Pt Level 4 (68897) Diagnoses Osteoarthritis of left knee M17.12 Osteoarthritis of right knee M17.11
== END 2023-09-26 14:57 | disposition home or self-care (01) ==
PROVIDERS: PCP Internal Medicine; Visit Provider Physician Assistant
DX: M17.0 Bilateral primary osteoarthritis of knee (principal)
CPT/HCPCS: 99214

== ENCOUNTER 2023-10-20 12:51 | Outpatient (AMB) | payer MEDICAID, SELFPAY ==
--- NOTE | 2023-10-20 12:54 | A.OFFVIS_ITS ---
Vital Signs 10/20/23 12:58 Height 5 ft 10 in Weight 321 lb 6.943 oz BMI 46.1 BP 112/68 Blood Pressure Location Rt brachial Pulse 109 H Pulse Source Pulse Oximeter Pulse Oximetry (%) 96 Oxygen Delivery Method Room Air Intake Visit Reasons: RA/Pre- op Clearance/CM Intake Note: Patient presents for RA. Strength And Conditioning Coach Required: Yes Strength And Conditioning Coach Services: Strength And Conditioning Coach Present Strength And Conditioning Coach Name: Lesly [id number] Allergies Sulfa (Sulfonamide Antibiotics) [SULFA (SULFONAMIDE ANTIBIOTICS)] Allergy (Severe, Verified 10/20/23 12:57) DIFFICULTY BREATHING, RASH, rash, hypertension Medication List - Last Reconciled 10/20/23 by Georgina Aguayo MD acetaminophen (Tylenol Extra Strength) 1,000 mg PO Q8H PRN Actemra ACTPen (tocilizumab) 162 mg (0.9 mL) subcut QWEEK NS allopurinol 600 mg (2 x 300 mg) PO DAILY allopurinol 100 mg PO DAILY apixaban (Eliquis) 5 mg PO BID cane As directed colchicine 0.6 mg PO BID cyclobenzaprine 10 mg PO Q8H diclofenac sodium 1% (Voltaren Arthritis Pain) 4 grams topical QID PRN gabapentin 200 mg (2 x 100 mg) PO BID hydrochlorothiazide 12.5 mg PO QAM losartan 100 mg PO QAM losartan 50 mg PO QAM oxycodone 5 mg PO TID PRN pantoprazole 40 mg PO DAILY@0630 phenobarbital 194.4 mg PO BEDTIME phenytoin sodium extended (Dilantin Extended) 200 mg PO BID@0900,1600 prednisone 5 mg PO DAILY sumatriptan succinate 100 mg PO Q4H PRN walker Folding front wheeled walker HPI Comments Details: This is a 48-year-old male with tophaceous gout and rheumatoid arthritis who presents for follow-up. He started Actemra injections about 3 weeks ago. States that he feels much better overall the pain swelling and stiffness of his hands is much improved. Denies to have significant right knee pain and scheduled for surgery 12/02. This is a preop visit [facility] Medical History (Updated 10/20/23 @ 13:41 by Georgina Aguayo MD) Spinal stenosis of lumbar region at multiple levels Screening examination for infectious disease Chronic tophaceous gout Right leg DVT Rheumatoid arthritis Tachycardia Lumbar radiculopathy HTN (hypertension) Rheumatoid arthritis Sleep apnea History of epilepsy Surgical History Hx of exploratory laparotomy Hx of bariatric surgery History of spinal surgery Family History Maternal Uncle Colon cancer Paternal Aunt Breast cancer Social History Household Members: Spouse Housing: Apartment 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 care 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 significant other at home: Yes ( disab led) Do you presently have visiting nurse or other home services: No Alcohol intake: never Comment: bathroom Patient Tobacco Use Status: Never used Tobacco e-Cigarette/Vaping Use: Never Used service: No Current occupational status: disabled Review of Systems Musc Reports abnormal gait, Reports arthralgias and Denies joint swelling Neuro Reports abnormal gait Physical Exam Vital Signs: Last Vital Signs Pulse 109 H 10/20/23 12:58 BP 112/68 10/20/23 12:58 Pulse Ox 96 10/20/23 12:58 Oxygen Delivery Method Room Air 10/20/23 12:58 BMI result Body Mass Index 46.1 Const General: cooperative, healthy appearing and comfortable Nutritional Appearance: obese morbidly obese Orientation/consciousness: patient oriented x3 Limitations: no limitations HEENT Head: Yes normocephalic and Yes atraumatic Mouth: moist mucous membranes Resp Effort & Inspection: normal respiratory effort and able to speak in complete sentences Skin General skin exam: no rashes or lesions noted Neuro General: patient oriented x3 Extrem Other: Right wrist swelling resolved, no tenderness to palpation, there is almost no range of motion. 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 COMPARISON: MRI scan of the lumbar spine 12/20/2018. TECHNIQUE: MRI of the lumbar spine was obtained using routine sequences with and without contrast. Intravenous contrast: Gadavist 10 mL FINDINGS: VERTEBRAL BODIES AND PARASPINAL STRUCTURES: There is a mild levoscoliosis. There is a mild retrolisthesis of L2 on L3. There is multilevel narrowing of intervertebral disc height, most severe at L2-L3. There are multilevel degenerative endplate contour changes. Fatty endplate signal changes are seen at T11-T12. There are edematous endplate signal changes with enhancement at L2-L3, most prominent toward the left. There are prominent right-sided flowing osteophytes at T11-T12 and T12-L1. There are no acute fractures and vertebral body heights are maintained. There are Schmorl's nodes at adjacent endplates at multiple levels. Overall, marrow signal is slightly heterogenous. There are sequelae of laminectomies at L1-L2 and L2-L3. There is a small cyst at the midpole of the left kidney anteriorly. The infrarenal abdominal artery is slightly tortuous but no aneurysm is demonstrated. The visualized pelvic structures are unremarkable. CONUS MEDULLARIS AND CAUDA EQUINA: Normal, terminating at the level of L1. The lower thoracic spinal cord has normal signal and there is no abnormal enhancement. The filum terminale appears normal. There is crowding of the cauda equina nerve roots from central stenosis at multiple levels. There is no abnormal enhancement of the cauda equina nerve roots. SPINAL LEVELS: T12-L1: There is mild bilateral facet arthropathy. Disc contour is normal. There is no central stenosis or foraminal narrowing. L1-L2: There are sequelae of bilateral laminectomies, and is mild facet arthropathy. There is a central and left-sided disc protrusion, extruding into the left subarticular recess with marked narrowing, and with increased mass effect on the thecal sac compared to prior imaging. There is impingement on the traversing left L2 nerve root. There is no foraminal nerve root impingement. There is moderate to severe central stenosis on the current study. L2-L3: There are sequelae of bilateral laminectomies. There is moderate to severe facet arthropathy, increased on the right compared to prior imaging. There is a broad-based posterior disc protrusion with extrusion behind the body of L2 in the midline, similar compared to prior imaging. There is marked narrowing of the bilateral subarticular recesses with impingement on the traversing L3 nerve roots. There is severe central stenosis. There are bilateral foraminal disc protrusions without definite exiting nerve root impingement. L3-L4: There is moderate to severe bilateral facet arthropathy. There is a broad-based posterior disc protrusion with an extruded component extending behind the body of L4 centrally and to the right of midline, which is more prominent compared to prior imaging, and there is now severe compression of the thecal sac with severe central stenosis. There is narrowing of the bilateral subarticular recesses. There are right greater than left foraminal disc protrusions without definite exiting nerve root impingement. L4-L5: There is moderate to severe bilateral facet arthropathy with ligamenta flava hypertrophy. There is a central and left-sided disc protrusion extending into the left neural foramen and far laterally with impingement on the exiting and extraforaminal left L4 nerve root. On the right there is a disc protrusion with an annular tear extending far laterally with impingement on the extraforaminal right L4 nerve root, similar compared to prior imaging. There is marked narrowing of the left subarticular recess, and there is mild to moderate central stenosis. These findings have progressed compared to prior imaging. L5-S1: There is markedly severe left and severe right facet arthropathy. There is a posterior disc protrusion with an annular fissure which is most prominent centrally and toward the left extending into the left neural foramen with impingement on the exiting left L5 nerve root. There is narrowing of the left subarticular recess with impingement on the traversing left S1 nerve root. There is minimal central stenosis. MR/MR lumbar spine wo/w con IMPRESSION: 1. At L1-L2 there are sequelae of bilateral laminectomies. There is a central and left-sided disc protrusion/extrusion with increased mass effect on the thecal sac compared to prior imaging. There is impingement on the traversing left L2 nerve root. There is moderate to severe central stenosis on the current study. 2. At L2-L3 there are sequelae of bilateral laminectomies. There is a broad-based posterior disc protrusion/extrusion, similar compared to prior imaging. There is marked narrowing of the bilateral subarticular recesses with impingement on the traversing L3 nerve roots. There is severe central stenosis. 3. At L3-L4 there is facet arthropathy and there is a posterior disc protrusion/extrusion, more prominent compared to prior imaging. There is now severe compression of the thecal sac with severe central stenosis. 4. At L4-L5 there is facet arthropathy. There is a central and left-sided disc protrusion extending into the left neural foramen and far laterally with impingement on the exiting and extraforaminal left L4 nerve root. A right-sided disc protrusion extends far laterally with impingement on the extraforaminal right L4 nerve root. There is marked narrowing of the left subarticular recess and there is mild to moderate central stenosis. These findings have progressed compared to prior imaging. 5. The study redemonstrates facet arthropathy at L5-S1, with narrowing of the left neural foramen and subarticular recess with impingement on the exiting left L5 and traversing left S1 nerve roots. 01/2023 EXAMINATION: XR RIGHT KNEE XR LEFT KNEE XR LEFT HIP/PELVIS XR LEFT FOOT XR RIGHT FOOT CLINICAL INFORMATION: Status post fall with pain. COMPARISON: 12/08/2022 and 07/11/2021 TECHNIQUE: AP, lateral and oblique views of each foot. AP and frog-leg lateral views of the left hip. AP view of the pelvis. AP and lateral views of each knee. FINDINGS: Right foot: Decreased bone mineralization. Joint space narrowing of the first MTP joint with marginal osteophytes. Hypertrophic changes of the first metatarsal head. There are large dorsal intertarsal, tarsometatarsal and ankle mortise joint osteophytes with overlying soft tissue swelling.. There are moderate retrocalcaneal enthesophytes seen. There is loss of the subtalar joint space. No displaced fracture. Deformity likely an old healed fracture of the diaphysis fourth metatarsal. Marked medial midfoot/hindfoot soft tissue swelling. Left foot: Decreased bone mineralization. Joint space narrowing of the first MTP joint with marginal osteophytes. Hypertrophic changes of the first metatarsal head. There are large dorsal intertarsal, tarsometatarsal and ankle mortise joint osteophytes with overlying soft tissue swelling.. There are large retrocalcaneal enthesophytes seen. There is loss of the subtalar joint space. No displaced fracture. Diffuse soft tissue swelling. Right knee: Marked lateral tibiofemoral cartilage space loss and mild medial medial tibiofemoral cartilage space loss with marginal osteophytes. Lateral patellar subluxation. Marked patellofemoral cartilage space loss with marginal osteophytes. Trace suprapatellar joint effusion. Patellar tendon enthesopathy. Left knee: Moderate lateral tibiofemoral and mild medial tibiofemoral cartilage space loss with marginal osteophytes. Moderate patellofemoral cartilage space loss with marginal veins. Small suprapatellar joint effusion with loose bodies suspected. Left hip/pelvis: Alignment is anatomic. Left hip cartilage space is maintained. Os acetabuli. No displaced fracture or dislocation. XR/XR knee RT 2V IMPRESSION: As above. Dictated By: HELENA POLO MD Signed By: <Electronically signed by HELENA POLO MD in OV> Laboratory Tests 01/29/23 12:05 WBC 7.2 RBC 4.48 L Hgb 15.0 Hct 43.6 MCV 97.3 ESR 7 Creatinine 0.87 Estimated GFR > 60 Uric Acid 6.5 C-Reactive Protein 0.71 H Assessment & Plan Assessment & Plan (1) Seropositive rheumatoid arthritis: Comment: Moniquel 2012-to April 2018 active disease on exam Humira April 2018-January 2021 active disease on exam Kevzara January 2021-present -placed on hold 03/06/2022 due to hospital admission for potential infection of the left elbow, final diagnosis olecranon gouty bursitis. The subsequent DMARD treatment for RA stopped. The patient was treated for tophaceous gout Kevzara restarted 05/2023 not effective Actemra 09/2023 effective Code(s): M05.9 - Rheumatoid arthritis with rheumatoid factor, unspecified Category: Medical Plan: This is a 48-year-old male with seropositive RA who presents for follow-up. On Actemra weekly and prednisone 5 mg daily. Doing much better overall since Actemra was started 3 weeks ago. There is no active synovitis on exam today. Continue Actemra 162 mg weekly and prednisone 5 mg daily Labs before next visit in 3 months (2) Chronic tophaceous gout: Comment: 02/2022: MSU crystals in aspirate of left olecranon 02/2022 Started on allopurinol, colchicine, prednisone 08/20/2022 Canakinumab add for acute gout prevention Code(s): M1A.9XX1 - Chronic gout, unspecified, with tophus (tophi) Category: Medical Plan: Gout is well controlled on allopurinol 700 mg daily, colchicine 0.6 mg Twice daily and prednisone 5 mg daily. Continue current meds. No need for canakinumab at the moment (3) half-way use of drug: Code(s): Z79.899 - Other long term care administrator (current) drug therapy Category: Medical (4) Osteoarthritis of knees, bilateral: Code(s): M17.0 - Bilateral primary osteoarthritis of knee Category: Medical Qualifiers: Osteoarthritis type: primary Qualified Code(s): M17.0 - Bilateral primary osteoarthritis of knee Plan: Severe bilateral knee osteoarthritis, more symptomatic on the right. Scheduled for right knee replacement at 12/02 (5) Preoperative examination: Code(s): Z01.818 - Encounter for other preprocedural examination Category: Medical Plan: I think patient's rheumatoid arthritis is well controlled. He has very minimal disease activity and is optimized for surgery. Given multiple cardiovascular factors, including morbid obesity, hypertension, obstructive sleep apnea and inability to evaluate his exercise capacity due to significant knee arthritis, I ordered a Lexiscan stress test to evaluate his cardiovascular fitness, if there is any abnormality, will refer patient to car diologist Check cervical spine x-rays for atlantoaxial instability Given that patient has been on prednisone regularly, he should receive stress dose steroids perioperatively With regards to medication management perioperatively, he is to hold Actemra injection 1 week prior to surgery and resume at least 2 weeks after on postop wound check provided reasonable wound healing with no signs of infection. His gout medication and prednisone 5 mg daily should be continued all through Follow-up with PCP for preop clearance Plan I spent 46 minutes reviewing patient's chart, evaluating patient, ordering diagnostic workup, counseling patient and documenting in the chart Orders: Orders CA lexiscan stress w shanell Today Z01.810 - Encounter for preprocedural cardiovascular examination Complete Blood Count Auto Diff 3 Months M05.9 - Rheumatoid arthritis with rheumatoid factor, unspecified C Reactive Protein 3 Months M05.9 - Rheumatoid arthritis with rheumatoid factor, unspecified Erythrocyte Sedimentation Rate 3 Months M05.9 - Rheumatoid arthritis with rheumatoid factor, unspecified XR cervical spine w flex/ext Today M05.9 - Rheumatoid arthritis with rheumatoid factor, unspecified Comprehensive Met. Panel 3 Months M05.9 - Rheumatoid arthritis with rheumatoid factor, unspecified Medications: Refilled prednisone 5 mg PO DAILY 90 tabs 0RF M1A.9XX1 - Chronic gout, unspecified, with tophus (tophi) Coding Level of Care Code Est Pt Level 5 (98372) Complex EM visit Add On G2211 Diagnoses Seropositive rheumatoid arthritis M05.9 Chronic tophaceous gout M1A.9XX1 long term care administrator use of drug Z79.899 Primary osteoarthritis of both knees M17.0 Osteoarthritis type: primary Preoperative examination Z01.818
[2023-10-20 12:58] VITALS: BP 112/68; PULSE 109; O2SAT 96; BMI 46.1
== END 2023-10-20 14:06 | disposition home or self-care (01) ==
PROVIDERS: PCP Internal Medicine; Referring Provider Internal Medicine; Visit Provider Student in an Organized Health Care Education/Training Program
DX: M05.79 Rheumatoid arthritis with rheumatoid factor of multiple sites without organ or systems involvement (principal); M1A.9XX1 Chronic gout, unspecified, with tophus (tophi); Z79.899 Other long term (current) drug therapy; M17.0 Bilateral primary osteoarthritis of knee; Z01.818 Encounter for other preprocedural examination
CPT/HCPCS: 99215

== ENCOUNTER → 2023-10-20 12:51 | Outpatient (BNVA) | payer MEDICAID, SELFPAY | PROVIDERS: PCP Internal Medicine; Visit Provider Student in an Organized Health Care Education/Training Program | DX: Z01.818 Encounter for other preprocedural examination (principal); M05.9 Rheumatoid arthritis with rheumatoid factor, unspecified; M1A.9XX1 Chronic gout, unspecified, with tophus (tophi); M17.0 Bilateral primary osteoarthritis of knee; Z79.899 Other long term (current) drug therapy | CPT/HCPCS: 99212 ==

== ENCOUNTER → 2023-10-29 08:39 | Outpatient (BNVA) | payer MEDICAID, SELFPAY | PROVIDERS: PCP Internal Medicine | DX: Z01.818 Encounter for other preprocedural examination (principal) ==

== ENCOUNTER 2023-11-04 13:59 | Outpatient (REF) | payer MEDICAID, SELFPAY ==
[2023-11-04 14:15] LABS: MANUAL DIFF FLAG NO
[2023-11-04 14:45] LABS: Basophils Percent Auto 0.6 % (0-2); Eosinophils Absolute Auto 0.1 X10*3/uL (0.0-0.4); Eosinophils Percent Auto 1.9 % (0-4); Hematocrit 43.9 % (42.0-52.0); Hemoglobin 15.6 g/dl (14.0-18.0); Imm Gran Abs Auto 0.02 X10*3/uL (0.00-0.03); Imm Gran Pct Auto 0.4 % (0.0-0.4); Lymphocytes Absolute Auto 1.4 X10*3/uL (1.2-4.9); Mean Corpuscular HGB Conc 35.5 g/dl (31.0-36.0); Mean Corpuscular Hemoglobin 33.8 pg (27.0-33.0); Mean Corpuscular Volume 95.2 fL (80.0-98.0); Mean Platelet Volume 9.6 fL (9.4-12.4); Monocytes Absolute Auto 0.6 X10*3/uL (0.1-1.2); Monocytes Percent Auto 11.3 % (2-11); Neutrophils Absolute Auto 3.3 x10*3/uL (2.0-8.3); Neutrophils Percent Auto 60.8 % (45-73); Platelet Count 205 X10*3/uL (160-400); Red Blood Count 4.61 X10*6/uL (4.60-5.80); Red Cell Distribution Width 12.8 % (11.0-16.0); White Blood Count 5.4 X10*3/uL (4.8-10.8)
[2023-11-04 15:07] LABS: Anion Gap 13 (12-20); Carbon Dioxide 29 mmol/L (22-29); Chloride 99 mmol/L (96-108); Potassium 3.4 mmol/L (3.3-5.1); Sodium 138 mmol/L (135-145)
[2023-11-04 16:42] LABS: Phenytoin Dilantin 19.7 ug/mL (10.0-20.0)
== END 2023-11-04 14:00 | disposition home or self-care (01) ==
LOC: HO.LAB 13:59
PROVIDERS: PCP Internal Medicine; Visit Provider Psychiatry & Neurology Neurology
DX: R56.1 Post traumatic seizures (principal); Z79.899 Other long term (current) drug therapy
CPT/HCPCS: 36415; 80051; 80184; 80185; 85025

== ENCOUNTER 2023-11-11 08:55 | Outpatient (AMB) | payer MEDICAID, SELFPAY ==
--- NOTE | 2023-11-11 08:57 | MHC.OFFVIS ---
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 [employer] Executive Director Required: Yes [employer]es[employer] Executive Director Name: Rolan [id number]/[email or web address] Accompanied by: Self / Same As Patient Allergies Sulfa (Sulfonamide Antibiotics) [SULFA (SULFONAMIDE ANTIBIOTICS)] Allergy (Severe, Verified 10/29/23 09:31) DIFFICULTY BREATHING, RASH, rash, hypertension Medication List - Last Reconciled 11/11/23 by Chris Flores MD acetaminophen (Tylenol Extra Strength) 1,000 mg PO Q8H PRN Actemra ACTPen (tocilizumab) 162 mg (0.9 mL) subcut QWEEK NS allopurinol 600 mg (2 x 300 mg) PO DAILY allopurinol 100 mg PO DAILY apixaban (Eliquis) 5 mg PO BID cane As directed colchicine 0.6 mg PO BID cyclobenzaprine 10 mg PO Q8H diclofenac sodium 1% (Voltaren Arthritis Pain) 4 grams topical QID PRN gabapentin 200 mg (2 x 100 mg) PO BID hydrochlorothiazide 12.5 mg PO QAM losartan 100 mg PO QAM losartan 50 mg PO QAM oxycodone 5 mg PO TID PRN pantoprazole 40 mg PO DAILY@0630 phenobarbital 194.4 mg PO BEDTIME phenytoin sodium extended (Dilantin Extended) 200 mg PO BID@0900,1600 prednisone 5 mg PO DAILY sumatriptan succinate 100 mg PO Q4H PRN walker Folding front wheeled walker HPI Comments Details: Gómez is here for consultation regarding preoperative risk stratification for knee surgery. He is morbidly obese. He has rheumatoid arthritis, chronic osteoarthritis and has a history of unprovoked right lower extremity DVT. He seems to be on chronic anticoagulation. He is walking with a cane. Within limits of his activity, no clear-cut angina or shortness of breath. However, does not seem to be too active. No documented coronary disease in the past. He does seem tachycardic which could be related to chronic inflammation as well as obesity. Chronically, heart rates seem high. [facility] Medical History (Updated 11/11/23 @ 09:34 by Chris Flores MD) Spinal stenosis of lumbar region at multiple levels Screening examination for infectious disease Chronic tophaceous gout Right leg DVT Rheumatoid arthritis Tachycardia Lumbar radiculopathy HTN (hypertension) Rheumatoid arthritis Sleep apnea History of epilepsy Surgical History Hx of exploratory laparotomy Hx of bariatric surgery History of spinal surgery Family History (Updated 11/11/23 @ 09:04 by Teresa Garcia CMA) Maternal Uncle Colon cancer Paternal Aunt Breast cancer Mother Pacemaker Sister Pacemaker Social History Household Members: Spouse Housing: Apartment Are you a primary care management associate to a significant other at home: Yes ( disabled) Do you presently have visiting nurse or other home services: No Alcohol intake: never Comment: bathroom Patient Tobacco Use Status: Never used Tobacco e-Cigarette/Vaping Use: Never Used service: No Current occupational status: disabled Review of Systems Const Denies chills, Denies daytime sleepiness, Denies fatigue, Denies fever(s), Denies poor appetite, Denies snoring, Denies stops breathing during sleep, Denies weakness, Denies weight gain and Denies weight loss Eyes Denies loss of vision ENT Denies dizziness and Denies hearing loss Card Denies chest pain, Denies irregular heart rhythm, Denies claudication, Denies leg edema, Denies lightheadedness, Denies palpitations, Denies dyspnea on exertion and Denies orthopnea Resp Denies cough, Denies excessive phlegm production, Denies dyspnea on exertion, Denies snoring and Denies wheezing GI Denies abdominal pain, Denies hematochezia, Denies change in bowel habits, Denies nausea and Denies vomiting Denies dysuria and Denies urinary frequency Musc Denies arthralgias, Denies muscle weakness, Denies numbness and Denies other Skin/Breast Denies nail changes and Denies rash Neuro Denies Abnormal speech present, Denies dizziness, Denies loss of vision, Denies memory loss, Denies numbness and Denies weakness Psych Denies depression and Denies memory loss Endo Denies fatigue and Denies palpitations Anthony/Lymph Denies easy bruising Aller/Immun Denies wheezing Physical Exam Vital Signs: Last Vital Signs Pulse 108 H 11/11/23 09:00 BP 130/68 11/11/23 09:00 BMI result Body Mass Index 46.1 Const General: comfortable and no acute distress Orientation/consciousness: patient oriented x3 HEENT Other: Unremarkable Head: Yes normal to inspection Neck Neck: Yes normal visual inspection Chest Chest palpation & inspection: normal inspection of the chest Resp Auscultation: clear to auscultation bilaterally Cardio Palpation: normal PMI Heart sounds: S1 normal heart sound present, S2 normal heart sound present, no gallops, no murmurs and no rubs GI Palpation (GI): Soft to palpation Back/Spine/Pelvis Other: unremarkable Skin General skin exam: no rashes or lesions noted Neuro General: patient oriented x3 Speech: No Abnormal speech present Extrem General: Yes normal to inspection Psych Mental Status: mental status grossly normal Office Procedures EKG Details: EKG with sinus tachycardia at 01:08/Min; slight nonspecific ST-[place] changes; [place] [id number], Complete Assessment & Plan Assessment & Plan (1) Preoperative cardiovascular examination: Code(s): Z01.810 - Encounter for preprocedural cardiovascular examination Category: Medical (2) Tachycardia: Code(s): R00.0 - Tachycardia, unspecified Category: Medical (3) HTN (hypertension): Code(s): I10 - Essential (primary) hypertension Category: Medical (4) Morbid obesity: Code(s): E66.01 - Morbid (severe) obesity due to excess calories Category: Medical (5) Seropositive rheumatoid arthritis: Comment: Claudio 2012-to April 2018 active disease on exam Humira April 2018-January 2021 active disease on exam Kevzara January 2021-present -placed on hold 03/06/2022 due to hospital admission for potential infection of the left elbow, final diagnosis olecranon gouty bursitis. The subsequent DMARD treatment for RA stopped. The patient was treated for tophaceous gout Kevzara restarted 05/2023 not effective Actemra 09/2023 effective Code(s): M05.9 - Rheumatoid arthritis with rheumatoid factor, unspecified Category: Medical (6) Osteoarthritis of knees, bilateral: Code(s): M17.0 - Bilateral primary osteoarthritis of knee Category: Medical Qualifiers: Osteoarthritis type: primary Qualified Code(s): M17.0 - Bilateral primary osteoarthritis of knee Plan 42-year-old requiring knee surgery with many comorbidities including obesity, chronic inflammation, polyarthritis, hypertension, limited ambulation, spontaneous DVT. He seems to be chronically tachycardic. Could be from some combination of obesity and chronic inflammation. Will get an echocardiogram pharmacological stress test for further evaluation. He is walking with a cane and hence will not be able to exercise on the treadmill. We can make an addendum after review of the above. Orders: Orders CA echo transthoracic complete Today R00.0 - Tachycardia, unspecified CA lexiscan stress w shanell Today I20.9 - Angina pectoris, unspecified, R00.0 - Tachycardia, unspecified, Z01.810 - Encounter for preprocedural cardiovascular examination NM cardiolite stress test Today R07.2 - Precordial pain Coding Level of Care Code New Pt Level 4 (51117) Diagnoses Preoperative cardiovascular examination Z01.810 Tachycardia R00.0 HTN (hypertension) I10 Morbid obesity E66.01 Seropositive rheumatoid arthritis M05.9 Primary osteoarthritis of both knees M17.0 Osteoarthritis type: primary CPT Codes EKG - CPT: [id number], Complete ([id number])
[2023-11-11 09:00] VITALS: BP 130/68; PULSE 108; BMI 46.1
== END 2023-11-11 09:49 | disposition home or self-care (01) ==
PROVIDERS: PCP Internal Medicine; Visit Provider Internal Medicine
DX: Z01.810 Encounter for preprocedural cardiovascular examination (principal); R00.0 Tachycardia, unspecified; I10 Essential (primary) hypertension; E66.01 Morbid (severe) obesity due to excess calories; M05.9 Rheumatoid arthritis with rheumatoid factor, unspecified; M17.0 Bilateral primary osteoarthritis of knee
CPT/HCPCS: 93010; 99204

== ENCOUNTER → 2023-11-11 08:55 | Outpatient (BNVA) | payer MEDICAID, SELFPAY | PROVIDERS: PCP Internal Medicine; Visit Provider Internal Medicine | DX: Z01.810 Encounter for preprocedural cardiovascular examination (principal); I10 Essential (primary) hypertension; I20.9 Angina pectoris, unspecified; E66.01 Morbid (severe) obesity due to excess calories; R00.0 Tachycardia, unspecified; M05.9 Rheumatoid arthritis with rheumatoid factor, unspecified; M17.0 Bilateral primary osteoarthritis of knee; R07.2 Precordial pain; Z68.42 Body mass index [BMI] 45.0-49.9, adult | CPT/HCPCS: 93005; 99202 ==

== ENCOUNTER → 2023-11-13 07:50 | Outpatient (REF) | payer MEDICAID, SELFPAY ==
--- NOTE | ~2023-11-13 | NM_ITS ---
Lexiscan Myocardial perfusion study Indication: Preoperative cardiovascular exam Technique: The patient was brought in for a Lexiscan perfusion study on 11/13/2023 and was injected 0.4 mg of Lexiscan intravenously. Within a minute of this injection 40 mCi of sestamibi was given intravenously. Images were obtained using the SPECT gamma camera interlaced with the gating device. Images were obtained in supine position. Resting perfusion study was performed on 11/18/2023. Patient was administered 40 mCi of sestamibi intravenously at rest. Images were then obtained in supine position. Total DLP 182 mGy-cm. Images were processed with the software and compared side to side in short axis, horizontal long axis and vertical long axis views. Findings: Raw aquisition reviewed. The stress perfusion study showed mildly diminished tracer uptake in the distal part of anterior wall. No major change with CT attenuation correction. The gated study shows normal LV systolic function with calculated LVEF of 57%. LV cavity is normal in size. The gated study shows normal wall thickening and contraction of segments. Resting study shows mildly diminished tracer uptake in the distal part of anterior wall. With CT attenuation correction, reduced uptake in the apex and hence could be technical. Gating at rest reveals normal wall motion with ejection fraction at 68%. The findings are consistent with mixed distal anterior perfusion defect with normal contractility and suspect likely artifactual etiology. NM/NM cardiolite stress test Impression: 1. Myocardial perfusion imaging study shows no definitive evidence of any ischemia or infarction. Distal anterior defect probably artifactual from soft tissue attenuation related to obesity. 2. Gated LVEF is 57% during stress and 68% during rest. 3. Transient ischemic dilatation not present. EKG component of the test reported separately. Electronically signed by: Chris Flores MD 11/19/2023 11:47 AM EDT
--- NOTE | 2023-11-13 07:53 | CA_ITS ---
Transthoracic Echocardiogram Patient (Last, First, Middle): Gómez Pelletier M Gender: Male Date of : 1975 Age: 48 Procedure Date: 11/13/2023 Procedure Type: Transthoracic Echocardiogram Location: OP Height: 177.8 cm Weight: 145.15 kg BSA: 2.55 m2 Heart Rate: 98 bpm BP: 128 / 64 mmHg Manager Income Tax: MED Referring MD: Chris Flores MD Welder Gun: Benedict Simpson MD Symptoms: R00.0 - Tachycardia, unspecified Study Quality: Adequate w contrast ECG Rhythm: Sinus Conclusions: - 1. Technically limited study despite use of contrast agent 2. Normal LV ejection fraction 55-60% 3. Poorly visualized cardiac valves with normal cardiac valvular Dopplers 4. Mildly dilated ascending aorta 3.7 cm Findings Procedure Information Contrast agent, definity, is being given per protocol without apparent complications. The quality of the study was technically difficult. The study quality is limited by patients body habitus. Left Ventricle Normal left ventricular size, thickness, and systolic function. The visually estimated ejection fraction is between 55-60%. Diastolic function is indeterminate on the basis of available data. There is mild septal asymmetric hypertrophy. Right Ventricle The right ventricle was not well visualized. Atria The left atrium is normal in size. Interatrial shunt cannot be excluded. The right atrium was not well visualized. Aortic Valve The aortic valve was not well visualized. There is no aortic valve stenosis. There is no aortic valve regurgitation. Mitral Valve The mitral valve was not well visualized. There is no mitral valve regurgitation. There is no mitral valve stenosis. Pulmonic Valve The pulmonic valve was not well visualized. Tricuspid Valve The tricuspid valve was not well visualized. Tricuspid regurgitation envelope is inadequate for calculation of right ventricular systolic pressure. Normal right atrial pressure. Great Vessels The aorta was not well visualized. The pulmonary artery was not well visualized. There is mild dilatation of the ascending aorta measuring 3.70 cm. Venous The inferior vena cava is normal in size. Pericardium/Pleural The pericardium was not well visualized. Prior Study Comparison No significant change compared to prior study dated: 03/12/2018. Measurements 2D Linear Measurements IVSd: 1.39 0.6-0.9/0.6-1.0 cm LVIDd: 4.35 3.9-5.3/4.2-5.9 cm LVIDd Index: 1.71 2.4-3.2/2.2-3.1 cm/m2 LVIDs: 2.82 2.0-3.6 cm LVPWd: 0.86 0.7-1.1 cm LA Diam: 3.50 2.7-3.8/3.0-4.0 cm LAIDs Index: 1.37 1.5-2.3 cm/m2 LV Mass: 213.93 67-162/88-224 g LV Mass Index: 83.90 43-95/49-115 g/m2 LVOT Diam: 2.60 3.0+(-)1.3 cm 2D Systolic Function EF 4C: 61.90 >55% EF 2C: 50.60 >55% EF BiP: 55.50 >55% Mitral Valve MV Pk E: 0.71 MV PK A: 0.67 MV Decel Time: 117.00 E/A: 1.10 E'Lateral: 11.10 E'Medial: 6.85 E/E' Med: 10.40 E/E' Lat: 6.40 PHT: 34.00 MVA PHT: 6.47 Decel [place]: 6.08 Aortic Valve AoV Pk Leroy: 1.15 AoV Pk Grad: 5.00 STAN: 5.00 LVOT LVOT Pk Leroy: 1.09 LVOT Mn Leroy: 0.74 LVOT VTI: 0.20 LVOT Pk Grad: 5.00 LVOT Mn Grad: 2.00 LVOT Diam: 2.60 LVOT Area: 5.31 Diastolic Function MV Pk E: 0.71 MV Pk A: 0.67 E/A: 1.10 E'Medial: 6.85 E/E' Med: 10.40 E' Laterial: 11.10 E/E' Lat: 6.40 Right Ventricle TAPSE (mm): 23.60 TVS' Leroy: 10.90 Tricuspid Valve RA Press: 3.00 Great Vessels Aorta Sinus of Valsalva: 4.00 2.0-3.5 cm Ao Asc: 3.70 2.1-3.4 cm Pulmonary Valve PV Pk Leroy: 0.95 Peak PV Grad: 4.00 CT Pk Leroy: 1.67 Updated in Other Vendor System with Status of Final Benedict Simpson MD electronically signed on 11/13/2023 3:59:50 PM with status of Final
--- NOTE | 2023-11-13 07:53 | CA_ITS ---
Acquisition Time: 2023-11-13 08:43:24 Total Exercise Time: 00:02:00 Test Indications: Abnormal ECG TACYCARDIA Medications: SEE H Protocol: LEXISCAN Max HR: 127 BPM 73% of Pred: 172 BPM Max BP: 144/078 mmHG Max Work Load: 1.0 METS Pharmacological stress test with Lexiscan injection, while sitting and kicking his legs, without anginal symptoms, without arrythmia, with normotensive response to injection, with nondiagnostic EKG for ischemia. In recovery he was treated with Aminophylline 75mg IVP to reverse Lexiscan. Nuclear images pending. Test reviewed with Dr Simpson Referred By: Chris Flores Overread By: LATHA KWONG
== END ==
LOC: HO.CARD 07:50
PROVIDERS: PCP Internal Medicine; Visit Provider Internal Medicine
DX: Z01.810 Encounter for preprocedural cardiovascular examination (principal); R07.2 Precordial pain; R00.0 Tachycardia, unspecified; I20.9 Angina pectoris, unspecified
CPT/HCPCS: 78452; 93017; 93306; A9500; J0280; J2785; Q9957

== ENCOUNTER → 2023-11-13 07:53 | Outpatient (BNV) | payer MEDICAID, SELFPAY | PROVIDERS: PCP Internal Medicine; Visit Provider Nurse Practitioner Family | DX: Z01.810 Encounter for preprocedural cardiovascular examination (principal) | CPT/HCPCS: 78452; 93016; 93018; 93320; 93325; 93350; 93352 ==

== ENCOUNTER 2023-12-25 09:56 | Outpatient (AMB) | payer MEDICAID, SELFPAY ==
[2023-12-25 10:14] VITALS: BMI 46.1
--- NOTE | 2023-12-25 10:14 | A.OFFVIS_ITS ---
Vital Signs 12/25/23 10:14 Height 5 ft 10 in Weight 321 lb BMI 46.1 Intake Visit Reasons: Pre-Op: R TKA w/NE 12/31/23 Intake Note: Gómez is a 48 year old male who presents today for a pre op appointment for his right TKA 12/31/23 NE. Regional Sales Coordinator Required: Yes Regional Sales Coordinator Language: Spindle Carver Services: Regional Sales Coordinator Present Regional Sales Coordinator Name: Brown [id number], Skye,RMA/LM Allergies Sulfa (Sulfonamide Antibiotics) [SULFA (SULFONAMIDE ANTIBIOTICS)] Allergy (Severe, Verified 10/29/23 09:31) DIFFICULTY BREATHING, RASH, rash, hypertension Medication List - Last Reconciled 12/25/23 by Estefany Drummond PA-C acetaminophen (Tylenol Extra Strength) 1,000 mg PO Q8H PRN Actemra ACTPen (tocilizumab) 162 mg (0.9 mL) subcut QWEEK NS allopurinol 600 mg (2 x 300 mg) PO DAILY allopurinol 100 mg PO BEDTIME apixaban (Eliquis) 5 mg PO BID cane As directed colchicine 0.6 mg PO BID cyclobenzaprine 10 mg PO Q8H diclofenac sodium 1% (Voltaren Arthritis Pain) 4 grams topical QID PRN gabapentin 200 mg (2 x 100 mg) PO BID hydrochlorothiazide 12.5 mg PO QAM losartan 100 mg PO BID oxycodone 5 mg PO TID PRN pantoprazole 40 mg PO DAILY@0630 phenobarbital 194.4 mg PO BEDTIME phenytoin sodium extended (Dilantin Extended) 200 mg PO TID prednisone 5 mg PO DAILY sumatriptan succinate 100 mg PO DIRECTED PRN walker Folding front wheeled walker HPI HPI Pre-Op: R TKA w/NE 12/31/23: Details: 48-year-old male, who is New Zealander speaking, presents in the office today for his preoperative history and physical exam prior to a right total knee arthroplasty to be performed on 12/31/[address] Castelan. The patient reports his pain is limiting her daily activities. He has tried and failed all conservative treatments. Therefore, he has elected to proceed with a right total knee arthroplasty. The patient is currently followed by Rheumatology for treatment of tophaceous gout and rheumatoid arthritis. Patient has an allergy history, as follows: -Sulfa (Sulfonamide Antibiotics); Difficulty breathing, rash, hypertension. Patient is currently taking, as follows: -Acetaminophen (Tylenol Extra Strength) 1000 mg PO Q8H PRN. -Tocilizumab 162 mg subcut QWEEK. -Allopurinol 100 mg PO bedtime. -Allopurinol 600 mg PO daily. -Eliquis 5 mg PO BID. -Colchicine 0.6 mg PO BID. -Cyclobenzaprine 10 mg PO Q8H. -Diclofenac sodium 1% 4 grams topical QID PRN. -Gabapentin 200 mg PO BID. -Hydrochlorothiazide 12.5 mg PO QAM. -Losartan 100 mg PO BID. -Oxycodone 5 mg PO TID PRN. -Pantoprazole 40 mg PO daily -Phenobarbital 194.4 mg PO bedtime. -Phenytoin sodium extended 200 mg PO TID. -Prednisone 5 mg PO daily. -Sumatriptan succinate 100 mg PO as directed PRN. Patient has a medical history, as follows: -Morbid obesity -Obstructive sleep apnea. 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 -Post laminectomy syndrome. -Seropositive rheumatoid arthritis. -Tachycardia -Spinal stenosis of lumbar region at multiple levels. -Right leg DVT. -Lumbar radiculopathy. -Hypertension. -Chronic tophaceous gout. -GERD. -On anticoagulant therapy. -History of epilepsy. Patient has a surgical history, as follows: -Hx of exploratory laparotomy. -Hx of bariatric surgery. -Hx of spinal surgery. [facility] Medical History (Updated 12/22/23 @ 12:34 by Romi Cates RN) Arthritis GERD (gastroesophageal reflux disease) On anticoagulant therapy Spinal stenosis of lumbar region at multiple levels Screening examination for infectious disease Chronic tophaceous gout Right leg DVT Rheumatoid arthritis Tachycardia Lumbar radiculopathy HTN (hypertension) Rheumatoid arthritis Sleep apnea History of epilepsy Surgical History Hx of exploratory laparotomy Hx of bariatric surgery History of spinal surgery Family History (Updated 11/11/23 @ 09:04 by Teresa Garcia CMA) Maternal Uncle Colon cancer Paternal Aunt Breast cancer Mother Pacemaker Sister Pacemaker Social History Household Members: Spouse Housing: Apartment Are you a primary patient care technician instructor to a significant other at home: No Do you presently have visiting nurse or other home services: No Alcohol intake: never Comment: bathroom Patient Tobacco Use Status: Never used Tobacco e-Cigarette/Vaping Use: Never Used service: No Current occupational status: disabled Review of Systems Const All systems reviewed & are unremarkable except as noted in HPI and below Physical Exam Vital Signs: BMI result Body Mass Index 46.1 Const General: cooperative, healthy appearing, comfortable, no acute distress, well developed, alert and awake Orientation/consciousness: patient oriented x3 HEENT Head: Yes normal to inspection, Yes normocephalic and Yes atraumatic Eyes General: appearance normal, both eyes and all related structures Neck Neck: Yes normal visual inspection and Yes no lymphadenopathy Resp Effort & Inspection: normal respiratory effort and able to speak in complete sentences Cardio Rate: regular rate Peripheral pulses: Peripheral pulses 2+ throughout GI Inspection: Yes normal to inspection Palpation (GI): Soft to palpation Skin General skin exam: no rashes or lesions noted Neuro General: patient oriented x3 Extrem Other: Right knee with marked valgus alignment with 1+ instability to valgus stress testing. MCL intact. Walks with antalgia. Tenderness to palpation lateral compartment. Psych Mental Status: mental status grossly normal Assessment & Plan Assessment & Plan (1) Osteoarthritis of left knee: Code(s): M17.12 - Unilateral primary osteoarthritis, left knee Category: Medical (2) Osteoarthritis of right knee: Code(s): M17.11 - Unilateral primary osteoarthritis, right knee Category: Medical Plan Mr. Pelletier is a 48-year-old male, who is New Zealander speaking, presents in the office today for his preoperative history and physical exam prior to a right total knee arthroplasty to be performed on 12/31/[address] Castelan. The patient reports his pain is limiting her daily activities. He has tried and failed all conservative treatments. Therefore, he has elected to proceed with a right total knee arthroplasty. The patient is currently followed by Rheumatology for treatment of tophaceous gout and rheumatoid arthritis. Patient has an allergy history, as follows: -Sulfa (Sulfonamide Antibiotics); Difficulty breathing, rash, hypertension. Patient is currently taking, as follows: -Acetaminophen (Tylenol Extra Strength) 1000 mg PO Q8H PRN. -Tocilizumab 162 mg subcut QWEEK. -Allopurinol 100 mg PO bedtime. -Allopurinol 600 mg PO daily. -Eliquis 5 mg PO BID. - He was instructed by his PCP to stop 3 Days prior to surgery -Colchicine 0.6 mg PO BID. -Cyclobenzaprine 10 mg PO Q8H. -Diclofenac sodium 1% 4 grams topical QID PRN. -Gabapentin 200 mg PO BID. -Hydrochlorothiazide 12.5 mg PO QAM. -Losartan 100 mg PO BID. -Oxycodone 5 mg PO TID PRN. -Pantoprazole 40 mg PO daily -Phenobarbital 194.4 mg PO bedtime. -Phenytoin sodium extended 200 mg PO TID. -Prednisone 5 mg PO daily. -Sumatriptan succinate 100 mg PO as directed PRN. Patient has a medical history, as follows: -Morbid obesity -Obstructive sleep apnea. 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 -Post laminectomy syndrome. -Seropositive rheumatoid arthritis. -Tachycardia -Spinal stenosis of lumbar region at multiple levels. -Right leg DVT. -Lumbar radiculopathy. -Hypertension. -Chronic tophaceous gout. -GERD. -On anticoagulant therapy. -History of epilepsy - Last seizure 20 years ago Patient has a surgical history, as follows: -Hx of exploratory laparotomy. -Hx of bariatric surgery. -Hx of spinal surgery. I discussed in detail the procedure and what to expect pre and post operatively. We discussed the risks, benefits and alternatives to the surgery and the rehabilitation course. The risks include infection, bleeding, nerve injury, ongoing pain, swelling, and stiffness, perioperative risk of injury to bones and soft tissues, and blood clots. I have answered all questions and with their understanding they have consented to move forward with a right total knee arthroplasty to be performed on 12/31/[address] Castelan. Follow-up will be at the post operative appointment on 01/15/24, or sooner if needed. He will Hold Eliquis 3 days prior to surgery and resume 48hours post op - He is on Eliquis due to hx of right leg DVT Hold Actemra 1 week prior to surgery as directed from [facility] No Celebrex due to Sulfa Allergy Orders: Orders XR knee RT 3V Today M25.569 - Pain in unspecified knee Patient Instructions: Scribed by Becky Sung medical imaging technician, for Estefany Drummond PA-C on 12/25/23 at 10:26 am EST. Coding Level of Care Code Global (68717) Diagnoses Osteoarthritis of left knee M17.12 Osteoarthritis of right knee M17.11
== END 2023-12-25 10:41 | disposition home or self-care (01) ==
PROVIDERS: PCP Internal Medicine; Visit Provider Physician Assistant
DX: M17.0 Bilateral primary osteoarthritis of knee (principal)
CPT/HCPCS: 99024

== ENCOUNTER 2023-12-25 14:03 | Outpatient (REF) | payer MEDICAID, SELFPAY ==
--- NOTE | ~2023-12-25 | XR_ITS ---
EXAMINATION: XR KNEE, LEFT XR KNEE, RIGHT CLINICAL INFORMATION: Pain. COMPARISON: X-ray of both knees September 2023. TECHNIQUE: Upright view of both knees and patella and lateral view of the right knee. FINDINGS: RIGHT KNEE: Advanced tricompartmental osteoarthritis with prominent marginal osteophytes and joint space narrowing. Overall xwtwruzc-qc-svsdms osteoarthritis. No effusion. No change. LEFT KNEE LIMITED AP UPRIGHT: Advanced osteoarthritis with marginal osteophytes and joint space narrowing of the medial and lateral compartments, unchanged compared to prior, likely reflecting at least tfke-jv-mlcefazk osteoarthritis. Cannot assess patellofemoral compartment. XR/XR knee LT 1V IMPRESSION: RIGHT KNEE: Advanced osteoarthritis, unchanged. LEFT KNEE: Advanced osteoarthritis, unchanged. Electronically signed by: Eliu Ramos MD 12/31/2023 12:14 PM EDT
--- NOTE | ~2023-12-25 | XR_ITS ---
EXAMINATION: XR KNEE, LEFT XR KNEE, RIGHT CLINICAL INFORMATION: Pain. COMPARISON: X-ray of both knees September 2023. TECHNIQUE: Upright view of both knees and patella and lateral view of the right knee. FINDINGS: RIGHT KNEE: Advanced tricompartmental osteoarthritis with prominent marginal osteophytes and joint space narrowing. Overall durjuagp-io-psazya osteoarthritis. No effusion. No change. LEFT KNEE LIMITED AP UPRIGHT: Advanced osteoarthritis with marginal osteophytes and joint space narrowing of the medial and lateral compartments, unchanged compared to prior, likely reflecting at least nsey-kt-ojyuaikz osteoarthritis. Cannot assess patellofemoral compartment. XR/XR knee RT 3V IMPRESSION: RIGHT KNEE: Advanced osteoarthritis, unchanged. LEFT KNEE: Advanced osteoarthritis, unchanged. Electronically signed by: Eliu Ramos MD 12/31/2023 12:14 PM EDT
== END 2023-12-25 14:04 | disposition home or self-care (01) ==
LOC: HO.HOSX 14:03
PROVIDERS: Visit Provider Physician Assistant
DX: Z01.818 Encounter for other preprocedural examination (principal); M25.569 Pain in unspecified knee; M17.11 Unilateral primary osteoarthritis, right knee; Z79.01 Long term (current) use of anticoagulants
CPT/HCPCS: 73560; 73562; 99212

== ENCOUNTER 2023-12-31 06:46 | Inpatient (IN) | payer MEDICAID, SELFPAY ==
[2023-12-22 12:49] VITALS: BP 130/84; PULSE 108; RESP 16; O2SAT 94; BMI 46.2
--- NOTE | 2023-12-22 13:03 | HO.ANESPROP2 ---
Documented by User: Brianne Vides NP 12/22/23 13:48 HPI - Anesthesia Eval Consult details Narrative: 48yo M for Right Knee Replacement Total, 12/31/23 Follows [facility] rheum for gout, RA. Meds optimized. To continue daily prednisone 5mg and allopurinol. Will hold weekly actemra injections 1 week pre and 2 weeks postop. Will require steroid stress dose. Follows [facility] heme for chronic RLE DVT. OK to hold eliquis preop [facility] cardiology for preop eval (referred by Rheum). Optimized based on stress and echo. PCP optimized No recent illness No CP/SOB with limited activity KRZYSZTOF: CPAP QHS GERD: ppi daily Discussed possible conversion to GA based on anatomy and KRZYSZTOF. Encouraged clean shave for better masking. 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) Post laminectomy syndrome (Acute) Secondary osteoarthritis of ankles, bilateral (Acute) Secondary osteoarthritis, right wrist (Acute) Osteoarthritis of knees, bilateral (Acute) Olecranon bursitis, left elbow (Acute) Seropositive rheumatoid arthritis (Acute) Tachycardia (Acute) Spinal stenosis of lumbar region at multiple levels (Acute) Screening examination for infectious disease (Acute) Right leg DVT (Chronic) Lumbar radiculopathy (Acute) HTN (hypertension) (Acute) History of epilepsy (Acute) Chronic tophaceous gout (Acute) Past Medical History Medical History Arthritis GERD (gastroesophageal reflux disease) On anticoagulant therapy Spinal stenosis of lumbar region at multiple levels Screening examination for infectious disease Chronic tophaceous gout Right leg DVT Rheumatoid arthritis Tachycardia Lumbar radiculopathy HTN (hypertension) Rheumatoid arthritis Sleep apnea History of epilepsy Family History Family History Maternal Uncle Colon cancer Paternal Aunt Breast cancer Mother Pacemaker Sister Pacemaker Family history of problems with anesthesia: No Surgical History Surgical History Hx of exploratory laparotomy Hx of bariatric surgery History of spinal surgery History of Problems with Anesthesia: No Social History Social History Household Members: Spouse Housing: Apartment Are you a primary auto care center manager to a significant other at home: No Do you presently have visiting nurse or other home services: No Alcohol intake: never Comment: bathroom Patient Tobacco Use Status: Never used Tobacco e-Cigarette/Vaping Use: Never Used Use of substances other than those prescribed or required for medical reasons: No Have you been hit, kicked, punched, or otherwise hurt by someone within the past year? If so, by whom?: No Are you DNR?: No Advance Directives: No Advance Directives Information Provided: No Advance Directives on File: No Recently lost weight without trying: Yes How much weight loss: 2-13 pounds Nutrition Risks: No Nutritional Risk Poor oral hygiene: No service: No Current occupational status: disabled Meds Allergies Allergy/AdvReac Type Severity Reaction Status Date / Time Sulfa (Sulfonamide Allergy Severe DIFFICULTY Verified 12/31/23 06:57 Antibiotics) BREATHING, [SULFA (SULFONAMIDE RASH, ANTIBIOTICS)] rash, hypertension Home Medications ?Medication ?Instructions ?Recorded ?Confirmed ?Last Taken ?Type phenytoin sodium extended 100 mg 200 mg PO TID 02/07/20 12/31/23 12/31/23 History capsule (Dilantin Extended) phenobarbital 97.2 mg tablet 194.4 mg PO BEDTIME 03/28/21 12/22/23 03/01/22 History oxycodone 5 mg tablet 5 mg PO TID PRN Pain 06/11/21 12/22/23 Unknown History pantoprazole 40 mg tablet,delayed 40 mg PO DAILY@0630 10/24/21 12/22/23 03/02/22 History release acetaminophen 500 mg tablet 1,000 mg PO Q8H PRN pain 03/03/22 12/22/23 Unknown History (Tylenol Extra Strength) diclofenac sodium 1 % topical gel 4 g topical QID PRN arthritis pain 03/03/22 12/22/23 Unknown History (Voltaren Arthritis Pain) losartan 100 mg tablet 100 mg PO BID 08/26/22 12/22/23 Unknown History hydrochlorothiazide 12.5 mg tablet 12.5 mg PO QAM 12/09/22 12/22/23 Unknown History sumatriptan succinate 100 mg tablet 100 mg PO DIRECTED PRN migraines 12/09/22 12/22/23 Unknown History allopurinol 100 mg tablet 100 mg PO BEDTIME 09/12/23 12/22/23 Unknown History Exam Height,Weight and Vital Signs: Height 5 ft 10 in Weight 146.057 kg BMI result Body Mass Index 46.2 Vital Signs Pulse Rate 108 H 12/22/23 12:49 Respiratory Rate 16 12/22/23 12:49 Blood Pressure 130/84 12/22/23 12:49 Pulse Oximetry 94 12/22/23 12:49 Oxygen Delivery Method Room Air 12/22/23 12:49 Pertinent Lab Results Pertinent Lab Results: Laboratory Tests 10/13/23 11/04/23 09:57 14:10 WBC 5.4 Hgb 15.6 Hct 43.9 Plt Count 205 Sodium 138 Potassium 3.4 Chloride 99 Carbon Dioxide 29 BUN 11 Creatinine 1.06 Narrative Narrative: EKG 10/2023 sinus tachycardia at 108/Min; slight nonspecific ST-T changes; normal MD and corrected QT ECHO 10/2023 Conclusions: - 1. Technically limited study despite use of contrast agent 2. Normal LV ejection fraction 55-60% 3. Poorly visualized cardiac valves with normal cardiac valvular Dopplers 4. Mildly dilated ascending aorta 3.7 cm NM cardiolite stress test 10/2023 Impression: 1. Myocardial perfusion imaging study shows no definitive evidence of any ischemia or infarction. Distal anterior defect probably artifactual from soft tissue attenuation related to obesity. 2. Gated LVEF is 57% during stress and 68% during rest. 3. Transient ischemic dilatation not present. EKG component of the test reported separately. Airway Mallampati Class: III TM Dist: <=3cm Neck ROM: Full Loose/Missing/Broken Teeth: No Heart: RRR Lungs: CTAB Assessment and Plan Assessment Anesthesia Assessment: Anesthesia Plan Discussed (Discussed possible conversion to GA based on anatomy and KRZYSZTOF. Encouraged clean shave for better masking.) and PAT Visit Final Anesthetic Review Family History of Problems with Anesthesia: No History of Problems with Anesthesia: No Documented by User: Miguelina Dickinson MD 12/31/23 07:33 PMFSH Past Medical History Medical History Arthritis GERD (gastroesophageal reflux disease) On anticoagulant therapy Spinal stenosis of lumbar region at multiple levels Screening examination for infectious disease Chronic tophaceous gout Right leg DVT Rheumatoid arthritis Tachycardia Lumbar radiculopathy HTN (hypertension) Rheumatoid arthritis Sleep apnea History of epilepsy Family History Family History Maternal Uncle Colon cancer Paternal Aunt Breast cancer Mother Pacemaker Sister Pacemaker Surgical History Surgical History Hx of exploratory laparotomy Hx of bariatric surgery History of spinal surgery Social History Social History Household Members: Spouse Housing: Apartment Are you a primary auto care center manager to a significant other at home: No Do you presently have visiting nurse or other home services: No Alcohol intake: never Comment: bathroom Patient Tobacco Use Status: Never used Tobacco e-Cigarette/Vaping Use: Never Used Use of substances other than those prescribed or required for medical reasons: No Have you been hit, kicked, punched, or otherwise hurt by someone within the past year? If so, by whom?: No Are you DNR?: No Advance Directives: No Advance Directives Information Provided: No Advance Directives on File: No Recently lost weight without trying: Yes How much weight loss: 2-13 pounds Nutrition Risks: No Nutritional Risk Poor oral hygiene: No service: No Current occupational status: disabled Meds Allergies Allergy/AdvReac Type Severity Reaction Status Date / Time Sulfa (Sulfonamide Allergy Severe DIFFICULTY Verified 12/31/23 06:57 Antibiotics) BREATHING, [SULFA (SULFONAMIDE RASH, ANTIBIOTICS)] rash, hypertension Home Medications ?Medication ?Instructions ?Recorded ?Confirmed ?Last Taken ?Type phenytoin sodium extended 100 mg 200 mg PO TID 1112/31/23 12/31/23 History capsule (Dilantin Extended) phenobarbital 97.2 mg tablet 194.4 mg PO BEDTIME 03/28/21 12/22/23 03/01/22 History oxycodone 5 mg tablet 5 mg PO TID PRN Pain 06/11/21 12/22/23 Unknown History pantoprazole 40 mg tablet,delayed 40 mg PO DAILY@0630 10/24/21 12/22/23 03/02/22 History release acetaminophen 500 mg tablet 1,000 mg PO Q8H PRN pain 03/03/22 12/22/23 Unknown History (Tylenol Extra Strength) diclofenac sodium 1 % topical gel 4 g topical QID PRN arthritis pain 03/03/22 12/22/23 Unknown History (Voltaren Arthritis Pain) losartan 100 mg tablet 100 mg PO BID 08/26/22 12/22/23 Unknown History hydrochlorothiazide 12.5 mg tablet 12.5 mg PO QAM 12/09/22 12/22/23 Unknown History sumatriptan succinate 100 mg tablet 100 mg PO DIRECTED PRN migraines 12/09/22 12/22/23 Unknown History allopurinol 100 mg tablet 100 mg PO BEDTIME 09/12/23 12/22/23 Unknown History Exam Airway Neck ROM: Limited Assessment and Plan Final Anesthetic Review NPO: Yes ASA Class: III Final Preanesthetic Review: No Changes in Pt Med Stat, Meds/Allgs Chart Reviewed, Consent Obtained/Reviewed and Anes Risks/Benef Reviewed Patient Risk: High Procedure Risk: Intermediate Anesthetic Plan Anesthetic Plan: GA
[2023-12-22 14:53] LABS: MRSA Nasal PCR NEGATIVE (Negative); SA Nasal PCR POSITIVE (Negative)
[2023-12-31] VITALS (10 sets, daily range): BP systolic 123–149; BP diastolic 79–99; PULSE 91–130; RESP 16–24; TEMP 36.1–37.2; O2SAT 94–98; BMI 48.3
--- NOTE | ~2023-12-31 | XR_ITS ---
EXAMINATION: XR KNEE, RIGHT CLINICAL INFORMATION: Status post knee replacement COMPARISON: None TECHNIQUE: Four views of the right knee. FINDINGS: Postsurgical changes noted. Hardware intact. Alignment normal. Postoperative soft tissue changes and joint effusion observed. XR/XR knee RT 2V IMPRESSION: Intact right TKA. Electronically signed by: Ghanshyam Lopez MD 12/31/2023 02:09 PM EDT
--- NOTE | 2023-12-31 07:27 | MHC.SHP ---
Pre-Procedural Eval Section A - 24 Hr Update-Section A only Date of Service: 12/31/23 The patient is an INPATIENT: No Changes since office visit: No Cold of Flu in the past 2 weeks, No New Medical Problems, No Changes in Medication and No Patient answered all questions The patient has been examined within 24 hours of the surgical procedure. The History & Physical has been completed within 30 days and I have reviewed it.: Yes Section B - Complete if H&P > 30 days Chief Complaint: RTKA Allergies: Allergies Allergy/AdvReac Type Severity Reaction Status Date / Time Sulfa (Sulfonamide Allergy Severe DIFFICULTY Verified 12/31/23 06:57 Antibiotics) BREATHING, [SULFA (SULFONAMIDE RASH, ANTIBIOTICS)] rash, hypertension Plan I have reviewed the history and physical and performed a pertinent physical examination on my patient. No changes have occurred unless specified. Time Spent With Patient Time: Total time managing care of this patient today ____ minutes.
--- NOTE | 2023-12-31 08:07 | ECG_ITS ---
Test Reason : postop Blood Pressure : / mmHG Vent. Rate : 099 BPM Atrial Rate : 099 BPM P-R Int : 180 ms QRS Dur : 092 ms QT Int : 352 ms P-R-T Axes : 018 006 027 degrees QTc Int : 451 ms Normal sinus rhythm Normal ECG When compared with ECG of 13-MAR-2022 00:20, No significant change was found Referred By: Miguelina Dickinson Electronically Signed By:LOLLY HARRIS
[2023-12-31] MEDS: Lactated Ringers 1,000 ML 100 ML IVCONT ×3 (08:45→22:29)
--- NOTE | 2023-12-31 10:41 | P.BOP_ITS ---
Brief Operative Note Date of Service: 12/31/23 Pre-op diagnosis: right knee OA Post-op diagnosis: same Procedure: Right TKA Implants: Fabricio Triathlon press fit posterior substituting 07/19/12ps/32a Surgeon: Ruddy Castelan MD Anesthesia: GETA and regional Was an Tool Honing Machine Set Up Operator used for this Procedure?: Yes Tool Honing Machine Set Up Operator: Estefany Drummond Estimated blood loss (mL): 50 Tourniquet time (min): 60 IV fluids (mL): 1,000 Pathology: other Condition: stable Disposition: PACU
--- NOTE | 2023-12-31 11:12 | PM.DS ---
DS: Providers Provider Date of Service: 01/02/24 <Khushboo Hinkle PA-C - Last Filed: 01/02/24 14:47> Date of admission: 12/31/23 06:46 <Estefany Drummond PA-C - Last Filed: 01/02/24 11:52> Primary care physician: Shi Gage MD <Estefany Drummond PA-C - Last Filed: 01/02/24 11:52> Consults: Urology Consult for Urinary retention Gómez is a 48-year-old Burkinan-speaking male who is status post right total knee replacement. Post op he has not been able to urinate requiring intermittent catheterization. Currently Moore is in place. The patient states that he has had prior procedures under anesthesia and had problems urinating as well. He denies any irritative voiding symptoms prior to the surgical procedure. He states he drinks a lot of water and has no difficulty urinating. I have discussed starting Flomax 0.4 mg daily and a voiding trial in a week. <Khushboo Hinkle PA-C - Last Filed: 01/02/24 14:47> DS: Summary Hospital Course Hospital Course: The patient underwent a successful right total knee arthroplasty, they were transferred to PACU and then to the floor to recover. During their stay, their vitals were stable, afebrile at 98.6. Labs were unremarkable, H/H 14.0/39x.9. POD 1 they were started on Lovenox and then transition back to Eliquis 5mg at regular dose for DVT ppx, they also received Physical Therapy services twice a day. POD 1 he 4developed urinatry retention and a moore catheter was placed. POD 2 Voiding trial was done inpatient which was unsuccessful. He was started on Flomax and moore placed for d/c home. Prior to discharge, their dressing was clean dry and intact, and the plan was to be discharged home with VNA services. <Estefany Drummond PA-C - Last Filed: 01/02/24 11:52> Time Attestation Discharge Coordination Time (in mins): 30 <SUSIE Ohara Last Filed: 01/02/24 14:47> Quality: Safe Use of Opioids Does Pt have an Active Cancer Diagnosis on the Problem List?: No <Khushboo Hinkle PA-C - Last Filed: 01/02/24 14:47> Quality: Stroke Does the patient have a stroke diagnosis?: No <Khushboo Hinkle PA-C - Last Filed: 01/02/24 14:47> Physical Exam Vital Signs: Vital Signs: Last Vital Signs Temp 99.0 F 12/31/23 07:57 Pulse 100 12/31/23 07:57 Resp 16 12/31/23 07:57 BP 123/82 12/31/23 07:57 Pulse Ox 94 12/31/23 07:57 O2 Del Method Room Air 12/31/23 07:57 BMI result Body Mass Index 46.2 <Estefany Drummond PA-C - Last Filed: 01/02/24 11:52> Const: General: cooperative, healthy appearing and no acute distress <Estefany Drummond PA-C - Last Filed: 01/02/24 11:52> Resp: Effort & Inspection: normal respiratory effort and able to speak in complete sentences <Estefany Drummond PA-C - Last Filed: 01/02/24 11:52> Cardio: Rate: regular rate <Estefany Drummond PA-C - Last Filed: 01/02/24 11:52> Peripheral pulses: Peripheral pulses 2+ throughout <Estefany Drummond PA-C - Last Filed: 01/02/24 11:52> GI: Palpation (GI): Soft to palpation <Estefany Drummond PA-C - Last Filed: 01/02/24 11:52> Skin: Lesions: no lesions <Estefany Drummond PA-C - Last Filed: 01/02/24 11:52> Rashes: no rashes <Estefany Drummond PA-C - Last Filed: 01/02/24 11:52> Extrem: Other: right knee dressing is c/d/i. Able to dorsi/plantar flex. Calf is supple and nontender. Sensation intact. Pedal pulse intact. <Estefany Drummond PA-C - Last Filed: 01/02/24 11:52> DS: Data Data Completed and Pending Completed studies during hospitalization [Text1]: Procedures Assistance with Respiratory Ventilation, Less than 24 Consecutive Hours, Continuous Positive Airway Pressure (03/03/22) Drainage of Left Elbow Bursa and Ligament, Percutaneous Approach (03/03/22) <Estefany Drummond PA-C - Last Filed: 01/02/24 11:52> Pending studies at discharge: Pending at discharge 12/31/23 10:18 Surgical [PTH] Routine <Estefany Drummond PA-C - Last Filed: 01/02/24 11:52> Discharge Plan Discharge Anticipated Discharge Date/Time: 01/01/24 13:11 <Estefany Drummond PA-C - Last Filed: 01/02/24 11:52> Patient Disposition: Home Health Service <Estefany Drummond PA-C - Last Filed: 01/02/24 11:52> Discharge Diagnosis: s/p RTKA <Estefany Drummond PA-C - Last Filed: 01/02/24 11:52> s/p RTKA <Khushboo Hinkle PA-C - Last Filed: 01/02/24 14:47> Referrals: Estefany Drummond PA-C [Physician Porcelain Buildup Assistant] - 01/15/24 2:15 pm <Estefany Drummond PA-C - Last Filed: 01/02/24 11:52> Discharge Medications: New oxycodone 10 mg tablet 10 mg PO Q4H PRN (Reason: Pain, Moderate(Pain Scale 4-6)) 7 Days Qty: 42 0RF Rx Instructions: Partial Fill upon patient request. acetaminophen 325 mg Tablet 650 mg PO Q6H PRN (Reason: Pain, Mild (Pain Scale 1-3), fever or headache) 30 Days Qty: 240 0RF tamsulosin 0.4 mg Capsule 0.4 mg PO DAILY 14 Days Qty: 14 0RF Continued (DME) cane Device See Rx Instructions .Route Qty: 1 0RF Rx Instructions: As directed Eliquis 5 mg tablet 5 mg PO BID Qty: 60 5RF gabapentin 100 mg capsule 200 mg PO BID Qty: 120 3RF (DME) walker Misc See Rx Instructions .ROUTE .MEDSUPPLY Qty: 1 0RF Rx Instructions: Folding front wheeled walker colchicine 0.6 mg tablet 0.6 mg PO BID Qty: 180 1RF Actemra ACTPen 162 mg/0.9 mL pen injector 162 mg subcut QWEEK Qty: 3.6 2RF phenytoin sodium extended [Dilantin Extended] 100 mg Capsule 200 mg PO TID phenobarbital 97.2 mg tablet 194.4 mg PO BEDTIME cyclobenzaprine 10 mg tablet 10 mg PO Q8H Qty: 20 0RF diclofenac sodium [Voltaren Arthritis Pain] 1 % gel 4 g topical QID PRN (Reason: arthritis pain) Rx Instructions: apply to hands, single knee, ankle, foot; for foot includes sole/toes/top of foot pantoprazole 40 mg tablet,delayed release (DR/EC) 40 mg PO DAILY@0630 hydrochlorothiazide 12.5 mg tablet 12.5 mg PO DAILY sumatriptan succinate 100 mg tablet 100 mg PO DIRECTED PRN (Reason: migraines) allopurinol 300 mg tablet 600 mg PO DAILY Qty: 180 2RF Rx Instructions: take two 300mg po with two 100mg to equal 800mg po daily prednisone 5 mg tablet 5 mg PO DAILY Qty: 90 0RF losartan 100 mg tablet 100 mg PO DAILY allopurinol 100 mg tablet 100 mg PO BEDTIME Rx Instructions: To be taken with the twice a day with two 300 mg allopurinol tablets -total daily dose 800 mg Discontinued oxycodone 5 mg tablet 5 mg PO TID PRN (Reason: Pain) acetaminophen [Tylenol Extra Strength] 500 mg tablet 1,000 mg PO Q8H PRN (Reason: pain) <Estefany Drummond PA-C - Last Filed: 01/02/24 11:52> Discharge Orders: Discharge Order (Routine); Ordered 01/02/24 Ordered By: Khushboo Hinkle <Estefany Drummond PA-C - Last Filed: 01/02/24 11:52> Diet: Advance to usual diet <Estefany Drummond PA-C - Last Filed: 01/02/24 11:52> Advance to usual diet <Khushboo Hinkle PA-C - Last Filed: 01/02/24 14:47> Activity on Discharge: Use cane or walker <SUSIE Dos Santos Last Filed: 01/02/24 11:52> Use cane or walker <Khushboo Hinkle PA-C - Last Filed: 01/02/24 14:47> Stand Alone Forms: Patient Portal Discharge page <SUSIE Dos Santos Last Filed: 01/02/24 11:52> Print Language: Burkinan <SUSIE Dos Santos Last Filed: 01/02/24 11:52> Care Plan Goals: restore fxn to right knee <SUSIE Dos Santos Last Filed: 01/02/24 11:52> Health Concerns: none <SUSIE Dos Santos Last Filed: 01/02/24 11:52> Plan of Treatment: Physical Therapy for ROM 0-120, quad strength, gait training. Use walker for ambulation Limit stair climbing, No shower, No tub bath, No driving Resume Eliquis at regular dose Keep Aquacel dressing clean, dry and intact. Follow up with orthopedics in 2 weeks <SUSIE Dos Santos Last Filed: 01/02/24 11:52> Assessment: stable for discharge <SUSIE Dos Santos Last Filed: 01/02/24 11:52>
--- NOTE | 2023-12-31 11:13 | P.F2F_ITS ---
Documented by User: Estefany Drummond PA-C 01/02/24 11:51 Service Date Service Date: 12/31/23 Encounter Date of encounter: 01/01/24 Reasons for Services Signs and symptoms assessed: s/p RTKA Pt. is considered homebound due to recent surgery. Unable to drive, poor balance, poor gait mechanics. Reason for physical therapy: home safety and mobility, therapeutic exercises, restore joint function, gait/transfer training and ADL training Homebound: Leaving the home is medically contraindicated at this time without the asist of a device and/or another person due th the listed conditions above and below. Reason homebound: unsteady gait / fall risk, leg weakness, pain with ambulation, poor balance / fall risk and unable to drive Certification: Based on the above findings, I certify that this patient is confined to the home and needs intermittent nursing home care, physical therapy and/or speech therapy, or continues to need occupational therapy. The patient is under my care, and I have initiated the establishment of the plan of care. The patient will be followed by a physician who will periodically review the plan of care. Time Spent With Patient Time: Total time managing care of this patient today ____ minutes. Documented by User: Khushboo Hinkle PA-C 01/02/24 14:59 Service Date Service Date: 01/02/24 Encounter Date of encounter: 01/02/24 Reasons for Services Reason for nursing home: other ([facility] )
[2023-12-31] MEDS: HYDROmorphone HCl 0.5 MG/0.5 ML SYRINGE 0.25 MG IVPUSH ×3 (12:15→22:21)
[2023-12-31] MEDS: Colchicine 0.6 MG TABLET PO ×2 (12:42→22:25)
[2023-12-31] MEDS: hydroCHLOROthiazide 12.5 MG TABLET PO (12:42)
[2023-12-31] MEDS: Cyclobenzaprine HCl 10 MG TABLET PO ×2 (12:42→22:26)
[2023-12-31] MEDS: Gabapentin 100 MG CAPSULE 200 MG PO ×2 (12:42→22:26)
[2023-12-31] MEDS: allopurinoL 300 MG TABLET 600 MG PO (12:47)
[2023-12-31] MEDS: Losartan Potassium 50 MG TABLET 100 MG PO (12:47)
--- NOTE | 2023-12-31 12:55 | HO.PM.IMCN ---
History of Present Illness Data of Consult Service Date: 12/31/23 Requesting physician: Ruddy Castelan Primary Care Provider: Shi Gage MD HPI Reason for consult: medical consult Pt is a 48 yo male with a pmhx of obesity, rheumatoid arthritis, osteoarthritis, gout, hypertension, GERD, epilepsy (last seizure many years ago), and right DVT 2 years ago on Eliquis, status post right total knee replacement today. He reports he has not urinated since the surgery, just started p.o. fluids and food. Some numbness on the right thigh. No chest pain, nausea, vomiting, abdominal pain or shortness of breath. No concerns. Review of Systems Constitutional: Constitutional: Denies chills, Denies fever(s) and Denies headache(s) Eyes: Eyes: Denies change in vision ENT: Denies dizziness and Denies headache(s) Cardiovascular: Cardiovascular: Denies chest pain, Denies rapid heart rate and Denies dyspnea Respiratory: Respiratory: Denies cough and Denies dyspnea Gastrointestinal: Gastrointestinal: Denies constipation, Denies diarrhea, Denies nausea and Denies vomiting Genitourinary: Genitourinary: Denies dysuria Musculoskeletal: Musculoskeletal: Denies myalgias Neurologic: Denies dizziness and Denies headache(s) [facility] Medical History Arthritis GERD (gastroesophageal reflux disease) On anticoagulant therapy Spinal stenosis of lumbar region at multiple levels Screening examination for infectious disease Chronic tophaceous gout Right leg DVT Rheumatoid arthritis Tachycardia Lumbar radiculopathy HTN (hypertension) Rheumatoid arthritis Sleep apnea History of epilepsy Family History Maternal Uncle Colon cancer Paternal Aunt Breast cancer Mother Pacemaker Sister Pacemaker Surgical History Hx of exploratory laparotomy Hx of bariatric surgery History of spinal surgery Social History Household Members: Spouse Housing: Apartment Are you a primary health care law specialist to a significant other at home: No Do you presently have visiting nurse or other home services: No Alcohol intake: never Comment: bathroom Patient Tobacco Use Status: Never used Tobacco e-Cigarette/Vaping Use: Never Used Use of substances other than those prescribed or required for medical reasons: No Have you been hit, kicked, punched, or otherwise hurt by someone within the past year? If so, by whom?: No Do you feel safe in your current relationship?: Yes Are you DNR?: No Advance Directives: No Advance Directives Information Provided: No Advance Directives on File: No Do you have a plan to hurt others: No Plan Recently lost weight without trying: No How much weight loss: 2-13 pounds Nutrition Risks: No Nutritional Risk Poor oral hygiene: No service: No Current occupational status: disabled Meds Allergies Allergy/AdvReac Type Severity Reaction Status Date / Time celecoxib Allergy Severe Anaphylaxis Verified 12/31/23 12:48 Sulfa (Sulfonamide Allergy Severe DIFFICULTY Verified 12/31/23 06:57 Antibiotics) BREATHING, [SULFA (SULFONAMIDE RASH, ANTIBIOTICS)] rash, hypertension Active Medications: Current Medications Acetaminophen (Acetaminophen 325 Mg Tablet) 650 mg PO Q6H PRN PRN Reason: Pain, Mild (Pain Scale 1-3), fever or headache Allopurinol (Allopurinol 100 Mg Tablet) 100 mg PO BID@0900,2100 [facility] Allopurinol (Allopurinol 300 Mg Tablet) 600 mg PO DAILY [facility] Last Admin: 12/31/23 12:47 Dose: 600 mg Celecoxib (Celecoxib 200 Mg Capsule) 200 mg PO BID [facility] Last Admin: 12/31/23 12:43 Dose: Not Given Colchicine (Colchicine 0.6 Mg Tablet) 0.6 mg PO BID [facility] Last Admin: 12/31/23 12:42 Dose: 0.6 mg Cyclobenzaprine HCl (Cyclobenzaprine Hcl 10 Mg Tablet) 10 mg PO Q8H [facility] Last Admin: 12/31/23 12:42 Dose: 10 mg Enoxaparin Sodium (Enoxaparin Sodium 40 Mg/0.4 Ml Syringe) 40 mg SUBCUT Q24H [facility] Gabapentin (Gabapentin 100 Mg Capsule) 200 mg PO BID [facility] Last Admin: 12/31/23 12:42 Dose: 200 mg Hydrochlorothiazide (Hydrochlorothiazide 12.5 Mg Tablet) 12.5 mg PO DAILY [facility]; Protocol Last Admin: 12/31/23 12:42 Dose: 12.5 mg Hydromorphone HCl (Hydromorphone Hcl 0.5 Mg/0.5 Ml Syringe) 0.25 mg IVPUSH Q4H PRN; Protocol PRN Reason: Pain, Severe (Pain Scale 7-10) Last Admin: 12/31/23 12:15 Dose: 0.25 mg Lactated Ringer's (Lr) 1,000 mls @ 100 mls/hr IVCONT .Q10H [facility] Last Admin: 12/31/23 12:12 Dose: 100 mls/hr Cefazolin Sodium/Dextrose (Ancef) 2 gm in 50 mls @ 100 mls/hr IV POSTOP@1500 ONE Stop: 12/31/23 15:29 Influenza Virus Vaccine (Flu Vacc [id number](6mos Up)/Pf 0.5 Ml Syringe) 0.5 ml IM .ONCE ONE Stop: 01/01/24 09:01 Losartan Potassium (Losartan Potassium 50 Mg Tablet) 100 mg PO DAILY [facility]; Protocol Last Admin: 12/31/23 12:47 Dose: 100 mg Non-Formulary Medication (Phenobarbital) 194.4 mg PO BEDTIME [facility] Non-Formulary Medication (Tocilizumab [Actemra Actpen]) 162 mg SUBCUT QWEEK [facility] Ondansetron HCl (Ondansetron Hcl 4 Mg/2 Ml Vial) 4 mg IVPUSH Q8H PRN PRN Reason: Nausea and Vomiting Oxycodone HCl (Oxycodone Hcl Immed Release 5 Mg Tablet) 5 mg PO Q4H PRN PRN Reason: Pain, Moderate(Pain Scale 4-6) Pantoprazole Sodium (Pantoprazole Sodium 20 Mg Tablet.) 40 mg PO DAILY@0630 [facility] Phenytoin Sodium (Phenytoin Sodium Extended 100 Mg Capsule) 200 mg PO TID [facility] Sodium Chloride (0.9 % Sodium Chloride Flush 3 Ml Syringe) 3 ml IVFLUSH QSHIFT [facility] Sumatriptan Succinate (Sumatriptan Succinate 100 Mg Tablet) 100 mg PO DIRECTED PRN PRN Reason: migraines Home Medications ?Medication ?Instructions ?Recorded ?Confirmed ?Last Taken ?Type phenytoin sodium extended 100 mg 200 mg PO TID 02/07/20 12/31/23 12/31/23 History capsule (Dilantin Extended) phenobarbital 97.2 mg tablet 194.4 mg PO BEDTIME 03/28/21 12/22/23 03/01/22 History oxycodone 5 mg tablet 5 mg PO TID PRN Pain 06/11/21 12/22/23 Unknown History pantoprazole 40 mg tablet,delayed 40 mg PO DAILY@0630 10/24/21 12/22/23 03/02/22 History release acetaminophen 500 mg tablet 1,000 mg PO Q8H PRN pain 03/03/22 12/22/23 Unknown History (Tylenol Extra Strength) diclofenac sodium 1 % topical gel 4 g topical QID PRN arthritis pain 03/03/22 12/22/23 Unknown History (Voltaren Arthritis Pain) losartan 100 mg tablet 100 mg PO DAILY 08/26/22 12/31/23 Unknown History hydrochlorothiazide 12.5 mg tablet 12.5 mg PO QAM 12/09/22 12/22/23 Unknown History sumatriptan succinate 100 mg tablet 100 mg PO DIRECTED PRN migraines 12/09/22 12/22/23 Unknown History allopurinol 100 mg tablet 100 mg PO BEDTIME 09/12/23 12/22/23 Unknown History Physical Exam Vital Signs and Narrative: Vital Signs: Last Vital Signs Temp 98.6 F 12/31/23 12:01 Pulse 105 H 12/31/23 12:01 Resp 18 12/31/23 12:01 BP 149/91 H 12/31/23 12:01 Pulse Ox 95 12/31/23 12:01 O2 Del Method Room Air 12/31/23 12:01 O2 Flow Rate 6 12/31/23 11:00 BMI result Body Mass Index 48.3 General: AOx3, no acute distress, obese Resp: CTA bilaterally CVS: S1, S2, RRR GI: +BS, NT Skin: Warm, dry Psych: Appropriate affect Assessment and Plan (1) Status post right knee replacement: Status: Acute Plan Pt is a 48 yo male with a pmhx of obesity, rheumatoid arthritis, osteoarthritis, gout, GERD, hypertension, epilepsy (last seizure many years ago), and right DVT 2 years ago on Eliquis, status post right total knee replacement today. s/p R TKR - plan per ortho gout - continue allopurinol and colchicine GERD - continue pantoprazole HTN - continue losartan, and HCTZ Epilepsy - distant history - continue phenobarb, phenytoin hx DVT - continue Lovenox Thank you for allowing me to participate in the pt's care. Signing off. Please contact the medical team if any questions or concerns.
[2023-12-31] MEDS: Phenytoin Sodium Extended 100 MG CAPSULE 200 MG PO ×2 (13:56→22:27)
[2023-12-31] MEDS: ceFAZolin Sodium/Dextrose,Iso 2 GM/50 ML PIGGYBACK IV (13:57)
[2023-12-31 14:13] LABS: Creatinine Clr Calc Pharmacy 142.5; Estimated Glomerular Filt Rate > 60
--- NOTE | 2023-12-31 15:07 | PC.NURSE ---
pt attempted to void in urinal, unable, wanted to ambulate to the BR, unable, strait cath for 1800cc
[2023-12-31] MEDS: allopurinoL 100 MG TABLET PO (22:26)
[2024-01-01] MEDS: oxyCODONE HCl Immed Release 5 MG TABLET PO (00:25)
[2024-01-01] MEDS: Acetaminophen 325 MG TABLET 650 MG PO (00:25)
--- NOTE | 2024-01-01 00:36 | PC.NURSE ---
Pt was unable to void, pain to lower abd, abd distended and firm. Pt bladder scan for 1127cc. Pt straight cath for 2325cc yellow urine with good relief @20:00. Will continue to monitor pt's urine output.
[2024-01-01 03:26] VITALS: BP 163/99; PULSE 99; RESP 18; TEMP 36.7; O2SAT 96
[2024-01-01] MEDS: Cyclobenzaprine HCl 10 MG TABLET PO ×3 (03:26→20:48)
[2024-01-01] MEDS: HYDROmorphone HCl 0.5 MG/0.5 ML SYRINGE 0.25 MG IVPUSH ×2 (03:27→07:16)
[2024-01-01 06:14] LABS: MANUAL DIFF FLAG NO
[2024-01-01 06:24] LABS: Basophils Percent Auto 0.2 % (0-2); Eosinophils Absolute Auto 0.2 X10*3/uL (0.0-0.4); Eosinophils Percent Auto 1.8 % (0-4); Hematocrit 38.5 % (42.0-52.0); Hemoglobin 13.6 g/dl (14.0-18.0); Imm Gran Abs Auto 0.02 X10*3/uL (0.00-0.03); Imm Gran Pct Auto 0.2 % (0.0-0.4); Lymphocytes Percent Auto 21.2 % (20-40); Mean Corpuscular HGB Conc 35.3 g/dl (31.0-36.0); Mean Corpuscular Hemoglobin 33.9 pg (27.0-33.0); Mean Platelet Volume 9.8 fL (9.4-12.4); Monocytes Absolute Auto 1.3 X10*3/uL (0.1-1.2); Monocytes Percent Auto 14.1 % (2-11); Neutrophils Absolute Auto 5.8 x10*3/uL (2.0-8.3); Neutrophils Percent Auto 62.5 % (45-73); Platelet Count 142 X10*3/uL (160-400); Red Blood Count 4.01 X10*6/uL (4.60-5.80); White Blood Count 9.3 X10*3/uL (4.8-10.8)
[2024-01-01] MEDS: Pantoprazole Sodium 20 MG TABLET.DR 40 MG PO (06:24)
[2024-01-01 06:43] LABS: Anion Gap 14 (12-20); Blood Urea Nitrogen 11 mg/dL (9-16); Calcium 9.7 mg/dL (8.4-10.2); Carbon Dioxide 29 mmol/L (22-29); Chloride 99 mmol/L (96-108); Creatinine Clr Calc Pharmacy 150.5; Estimated Glomerular Filt Rate > 60; Glucose Fasting 114 mg/dL (60-99); Potassium 3.3 mmol/L (3.3-5.1); Sodium 139 mmol/L (135-145)
--- NOTE | 2024-01-01 07:04 | PC.NURSE ---
Late entry: Pt OOB with 2A to use urinal, but was unable to void on his own. Pt bladder scan for 774cc. Per MD ordered, pt straight cath for 2nd time during this RN shift at 03:00. Straight cath pt for 1125cc yellow urine. MD Corbin and acting section chief Rashad SCHULTZ notified of the situation. No new orders were given. Per Rashad SCHULTZ, will discuss with urology in AM. Will continue to monitor.
--- NOTE | 2024-01-01 07:15 | PHA.MEDREC ---
Pharmacy Consult ? Medication Reconciliation Pharmacy has reviewed the med rec done by nursing. Matches the claims well. Spoke to patient and he stated he received his actemra last week and is supposed to wait until two weeks after his surgery to take it again.
[2024-01-01 07:45] VITALS: BP 145/84; PULSE 100; RESP 18; TEMP 36.7; O2SAT 95
[2024-01-01] MEDS: Colchicine 0.6 MG TABLET PO ×2 (08:02→20:50)
[2024-01-01] MEDS: Losartan Potassium 50 MG TABLET 100 MG PO (08:02)
[2024-01-01] MEDS: Phenytoin Sodium Extended 100 MG CAPSULE 200 MG PO ×3 (08:02→20:49)
[2024-01-01] MEDS: hydroCHLOROthiazide 12.5 MG TABLET PO (08:02)
[2024-01-01] MEDS: Gabapentin 100 MG CAPSULE 200 MG PO ×2 (08:03→20:48)
[2024-01-01] MEDS: Flu Vacc TS2024-25(6mos up)/PF 0.5 ML SYRINGE IM (08:03)
[2024-01-01] MEDS: allopurinoL 300 MG TABLET 600 MG PO (08:03)
--- NOTE | 2024-01-01 09:04 | PM.PNORT ---
Subjective Subjective Date of Service: 01/01/24 Interval history: POD1 s/p RTKA Patient is resting in bed No overnight events Pain is poorly managed Difficulty with urinary retention requiring 4 straight caths - Osorio Cath placed this AM Physical Exam Vital Signs: Vital Signs: Last Vital Signs Temp 98.1 F 01/01/24 07:45 Pulse 100 01/01/24 07:45 Resp 18 01/01/24 07:45 BP 145/84 H 01/01/24 07:45 Pulse Ox 95 01/01/24 07:45 O2 Del Method Room Air 01/01/24 07:45 O2 Flow Rate 6 12/31/23 11:00 BMI result Body Mass Index 48.3 Const: General: cooperative, healthy appearing and no acute distress Resp: Effort & Inspection: normal respiratory effort and able to speak in complete sentences Cardio: Rate: regular rate Peripheral pulses: Peripheral pulses 2+ throughout GI: Palpation (GI): Soft to palpation Skin: Lesions: no lesions Rashes: no rashes Extrem: Other: right knee dressing is c/d/i. Able to dorsi/plantar flex. Calf is supple and nontender. Sensation intact. Pedal pulse intact. Procedures Date of Service Date of Service: 01/01/24 Progress Note: A&P Assessment and plan (1) Urinary retention: Status: Acute (2) Status post right knee replacement: Status: Acute Assessment and Plan: Continue pain mgmnt - Med adjustment made Begin Lovenox for dvt ppx - Transition back to Eliquis 48 hours post op begin PT for RTKA Urinary retention - Osorio placed this AM, Urology consult placed Dispo planning-Pending PT eval, pain mgmnt Patient will need ongoing inpatient stay for the following reasons; Pain management - Medication adjustments made Urinary retention - Osorio placed, pending urology consult (3) Morbid obesity: Status: Acute Time Spent With Patient Time: Total time managing care of this patient today ____ minutes. Quality Stroke Does the patient have a stroke diagnosis?: No VTE Prior VTE?: Yes VTE Risk Level:: Medical - moderate - high VTE Device Contraindication: N/A - Device Ordered VTE Drug Contraindication: N/A - Med Ordered
[2024-01-01] MEDS: HYDROmorphone HCl 0.5 MG/0.5 ML SYRINGE IVPUSH ×4 (09:08→21:35)
--- NOTE | 2024-01-01 09:40 | MHC.CM.PN ---
Addendum entered by Gely Castellanos RN 01/01/24 10:48: PATIENT REPORTS HE HAS AN HCP LISTING HIS [facility]. COPY REQUESTED. Original Note: PATIENT OMANI SPEAKING, TRANSACTION PROCESSOR AT BEDSIDE TO ASSIST W/ CM ASSESSMENT. PATIENT LIVES IN AN APARTMENT W/ . AMBULATES W/ CANE AT BASELINE. ALSO HAS A WALKER AND W/C IN THE HOME. BATHROOM W/ GRAB BARS. HAS CPAP, [facility] IS SUPPLIER. PCP COOPER ARREDONDO DP: PT REC HOME W/ SERVICES. [facility] HAS ACCEPTED. FAMILY TO TRANSPORT. CM WILL CONTINUE TO FOLLOW.
[2024-01-01] MEDS: oxyCODONE HCl Immed Release 5 MG TABLET 10 MG PO ×3 (10:22→19:22)
[2024-01-01] MEDS: Enoxaparin Sodium 40 MG/0.4 ML SYRINGE SUBCUT (10:22)
--- NOTE | 2024-01-01 11:08 | HO.POSTANES ---
Post Anesthesia Evaluation Post Anesthesia Evaluation Date of Service: 12/31/23 Vital Signs: Vital Signs Temp Pulse Resp BP Pulse Ox O2 Del Method 01/01/24 07:45 98.1 F 100 18 145/84 H 95 Room Air 01/01/24 03:26 98.1 F 99 18 163/99 H 96 Room Air Anesthesia: Nerve Block and General Endotracheal-GETA Mental Status: Awake Pain Control: Satisfactory Nausea/Vomiting: None Hydration: Adequate Comments: Had significant urinary retention. Has had that in the past after prev surgery.
--- NOTE | 2024-01-01 12:09 | PM.UROCN ---
History of Present Illness Consult details Consult date: 01/01/24 Narrative: Consult for Urinary retention Gómez is a 48-year-old Greek-speaking male who is status post right total knee replacement. Post op he has not been able to urinate requiring intermittent catheterization. Currently Moore is in place. The patient states that he has had prior procedures under anesthesia and had problems urinating as well. He denies any irritative voiding symptoms prior to the surgical procedure. He states he drinks a lot of water and has no difficulty urinating. I have discussed starting Flomax 0.4 mg daily and a voiding trial in a week. Review of Systems Review of Systems: Yes all other systems are reviewed and are negative Constitutional: Constitutional: Reports no additional constitutional complaints Eyes: Eyes: Reports no additional eye complaints ENT: Reports system reviewed and no additional complaints, except as documented Cardiovascular: Cardiovascular: Reports no additional cardiovascular complaints Respiratory: Respiratory: Reports no additional respiratory complaints Gastrointestinal: Gastrointestinal: Reports no additional gastrointestinal complaints Genitourinary: Genitourinary: Reports as per HPI Musculoskeletal: Musculoskeletal: Reports no additional musculoskeletal complaints Integumentary/Breasts: Skin/Breast: Reports system reviewed and no additional complaints, except as docu Neurologic: Reports system reviewed and no additional complaints, except as documented Psychiatric: Psychiatric: Reports no additional psychiatric complaints Endocrine: Endocrine: Reports no additional endocrine complaints Hematologic/Lymphatic: Hematologic/Lymphatic: Reports no additional hematologic/lymphatic complaints Allergic/Immunologic: Allergic/Immunologic: Reports no additional allergic/immunologic complaints [facility] Past Medical History Medical History Arthritis GERD (gastroesophageal reflux disease) On anticoagulant therapy Spinal stenosis of lumbar region at multiple levels Screening examination for infectious disease Chronic tophaceous gout Right leg DVT Rheumatoid arthritis Tachycardia Lumbar radiculopathy HTN (hypertension) Rheumatoid arthritis Sleep apnea History of epilepsy Family History Family History Maternal Uncle Colon cancer Paternal Aunt Breast cancer Mother Pacemaker Sister Pacemaker Surgical History Surgical History Hx of exploratory laparotomy Hx of bariatric surgery History of spinal surgery Social History Social History Household Members: Spouse Housing: Apartment Are you a primary care nurse rn to a significant other at home: No Do you presently have visiting nurse or other home services: No Alcohol intake: never Comment: bathroom Patient Tobacco Use Status: Never used Tobacco e-Cigarette/Vaping Use: Never Used Use of substances other than those prescribed or required for medical reasons: No Currently Displaying Signs/Symptoms of Drug Intoxication Withdrawal: No Have you been hit, kicked, punched, or otherwise hurt by someone within the past year? If so, by whom?: No Do you feel safe in your current relationship?: Yes Are you DNR?: No Advance Directives: No Advance Directives Information Provided: No Advance Directives on File: No Do you have a plan to hurt others: No Plan Recently lost weight without trying: No How much weight loss: 2-13 pounds Nutrition Risks: No Nutritional Risk Poor oral hygiene: No service: No Current occupational status: disabled Meds Allergies Allergy/AdvReac Type Severity Reaction Status Date / Time celecoxib Allergy Severe Anaphylaxis Verified 12/31/23 12:48 Sulfa (Sulfonamide Allergy Severe DIFFICULTY Verified 12/31/23 06:57 Antibiotics) BREATHING, [SULFA (SULFONAMIDE RASH, ANTIBIOTICS)] rash, hypertension Active Medications: Current Medications Acetaminophen (Acetaminophen 325 Mg Tablet) 650 mg PO Q6H PRN PRN Reason: Pain, Mild (Pain Scale 1-3), fever or headache Last Admin: 01/01/24 00:25 Dose: 650 mg Allopurinol (Allopurinol 300 Mg Tablet) 600 mg PO DAILY [facility] Last Admin: 01/01/24 08:03 Dose: 600 mg Allopurinol (Allopurinol 100 Mg Tablet) 100 mg PO BEDTIME [facility] Colchicine (Colchicine 0.6 Mg Tablet) 0.6 mg PO BID [facility] Last Admin: 01/01/24 08:02 Dose: 0.6 mg Cyclobenzaprine HCl (Cyclobenzaprine Hcl 10 Mg Tablet) 10 mg PO Q8H [facility] Last Admin: 01/01/24 11:56 Dose: 10 mg Enoxaparin Sodium (Enoxaparin Sodium 40 Mg/0.4 Ml Syringe) 40 mg SUBCUT Q24H [facility] Last Admin: 01/01/24 10:22 Dose: 40 mg Gabapentin (Gabapentin 100 Mg Capsule) 200 mg PO BID [facility] Last Admin: 01/01/24 08:03 Dose: 200 mg Hydrochlorothiazide (Hydrochlorothiazide 12.5 Mg Tablet) 12.5 mg PO DAILY [facility]; Protocol Last Admin: 01/01/24 08:02 Dose: 12.5 mg Hydromorphone HCl (Hydromorphone Hcl 0.5 Mg/0.5 Ml Syringe) 0.5 mg IVPUSH Q4H PRN; Protocol PRN Reason: Pain, Severe (Pain Scale 7-10) Last Admin: 01/01/24 09:08 Dose: 0.5 mg Lactated Ringer's (Lr) 1,000 mls @ 100 mls/hr IVCONT .Q10H [facility] Last Infusion: 01/01/24 08:11 Dose: Infused Losartan Potassium (Losartan Potassium 50 Mg Tablet) 100 mg PO DAILY [facility]; Protocol Last Admin: 01/01/24 08:02 Dose: 100 mg Ondansetron HCl (Ondansetron Hcl 4 Mg/2 Ml Vial) 4 mg IVPUSH Q8H PRN PRN Reason: Nausea and Vomiting Oxycodone HCl (Oxycodone Hcl Immed Release 5 Mg Tablet) 10 mg PO Q4H PRN PRN Reason: Pain, Moderate(Pain Scale 4-6) Last Admin: 01/01/24 10:22 Dose: 10 mg Pantoprazole Sodium (Pantoprazole Sodium 20 Mg Tablet.Dr) 40 mg PO DAILY@0630 [facility] Last Admin: 01/01/24 06:24 Dose: 40 mg Phenobarbital (Phenobarbital 100 Mg Tablet) 200 mg PO BEDTIME [facility] Last Admin: 12/31/23 22:27 Dose: 200 mg Phenytoin Sodium (Phenytoin Sodium Extended 100 Mg Capsule) 200 mg PO TID [facility] Last Admin: 01/01/24 08:02 Dose: 200 mg Sodium Chloride (0.9 % Sodium Chloride Flush 3 Ml Syringe) 3 ml IVFLUSH QSHIFT [facility] Last Admin: 01/01/24 07:34 Dose: Not Given Sumatriptan Succinate (Sumatriptan Succinate 100 Mg Tablet) 100 mg PO DAILY [facility] PRN PRN Reason: migraines Home Medications ?Medication ?Instructions ?Recorded ?Confirmed ?Last Taken ?Type phenytoin sodium extended 100 mg 200 mg PO TID 02/07/20 12/31/23 12/31/23 History capsule (Dilantin Extended) phenobarbital 97.2 mg tablet 194.4 mg PO BEDTIME 03/28/21 12/22/23 03/01/22 History oxycodone 5 mg tablet 5 mg PO TID PRN Pain 06/11/21 12/22/23 Unknown History pantoprazole 40 mg tablet,delayed 40 mg PO DAILY@0630 10/24/21 12/22/23 03/02/22 History release acetaminophen 500 mg tablet 1,000 mg PO Q8H PRN pain 03/03/22 12/22/23 Unknown History (Tylenol Extra Strength) diclofenac sodium 1 % topical gel 4 g topical QID PRN arthritis pain 03/03/22 12/22/23 Unknown History (Voltaren Arthritis Pain) losartan 100 mg tablet 100 mg PO DAILY 08/26/22 12/31/23 Unknown History hydrochlorothiazide 12.5 mg tablet 12.5 mg PO DAILY 12/09/22 01/01/24 Unknown History sumatriptan succinate 100 mg tablet 100 mg PO DIRECTED PRN migraines 12/09/22 12/22/23 Unknown History allopurinol 100 mg tablet 100 mg PO BEDTIME 09/12/23 12/22/23 Unknown History Physical Exam Vital Signs: Vital Signs: Last Vital Signs Temp 98.1 F 01/01/24 07:45 Pulse 100 01/01/24 07:45 Resp 18 01/01/24 07:45 BP 145/84 H 01/01/24 07:45 Pulse Ox 95 01/01/24 07:45 O2 Del Method Room Air 01/01/24 07:45 O2 Flow Rate 6 12/31/23 11:00 BMI result Body Mass Index 48.3 Const: General: healthy appearing, no acute distress and well developed Nutritional Appearance: overweight (Are you able to find out the day that she was in the emergency room that wa) Orientation/consciousness: patient oriented x3 HEENT: Head: Yes normocephalic and Yes atraumatic Eyes: Conjunctivae: conjunctivae normal Neck: Neck: Yes normal visual inspection Chest: Chest palpation & inspection: normal inspection of the chest Resp: Effort & Inspection: normal respiratory effort Cardio: Rate: regular rate GI: Inspection: Yes normal to inspection Palpation (GI): Soft to palpation : Other: Moore is in place dariel colored urine. Penis: normal penis Scrotum: scrotum normal Neuro: General: patient oriented x3 Psych: Appearance: grossly normal Affect: normal affect Results Labs 01/01/24 05:52 01/01/24 05:52 Labs: Abnormal lab results 01/01/24 Range/Units 05:52 RBC 4.01 L (4.60-5.80) X10*6/uL Hgb 13.6 L (14.0-18.0) g/dl Hct 38.5 L (42.0-52.0) % MCH 33.9 H (27.0-33.0) pg Plt Count 142 L D (160-400) X10*3/uL [place] % (Auto) 14.1 H (2-11) % [place] # (Auto) 1.3 H (0.1-1.2) X10*3/uL Fasting Glucose 114 H (60-99) mg/dL Short CBC 01/01/24 Range/Units 05:52 WBC 9.3 (4.8-10.8) X10*3/uL Hgb 13.6 L (14.0-18.0) g/dl Hct 38.5 L (42.0-52.0) % Plt Count 142 L D (160-400) X10*3/uL BMP 12/31/23 01/01/24 13:24 05:52 Sodium 139 Potassium 3.3 Chloride 99 Carbon Dioxide 29 BUN 11 Creatinine 0.94 0.89 Calcium 9.7 All other labs normal. Assessment and Plan (1) Urinary retention: Status: Acute Plan send urine for UA with reflex culture' cont moore, start flomax outpt fu with for voiding trial Procedures Date of Service Date of Service: 01/01/24
[2024-01-01] MEDS: 0.9 % Sodium Chloride Flush 3 ML SYRINGE IVFLUSH ×2 (13:05→20:51)
[2024-01-01 15:36] VITALS: BP 155/86; PULSE 107; RESP 18; TEMP 37.1; O2SAT 93
[2024-01-01 19:27] VITALS: BP 148/82; PULSE 105; RESP 18; TEMP 37.1; O2SAT 96
[2024-01-01] MEDS: allopurinoL 100 MG TABLET PO (20:49)
[2024-01-02] MEDS: Cyclobenzaprine HCl 10 MG TABLET PO ×2 (03:11→10:28)
[2024-01-02] MEDS: HYDROmorphone HCl 0.5 MG/0.5 ML SYRINGE IVPUSH ×2 (03:13→17:06)
[2024-01-02 04:00] VITALS: BP 146/83; PULSE 109; RESP 18; TEMP 36.5; O2SAT 93
[2024-01-02] MEDS: Pantoprazole Sodium 20 MG TABLET.DR 40 MG PO (05:43)
[2024-01-02] MEDS: Acetaminophen 325 MG TABLET 650 MG PO ×2 (06:40→14:32)
[2024-01-02] MEDS: oxyCODONE HCl Immed Release 5 MG TABLET 10 MG PO ×3 (06:40→14:32)
[2024-01-02 06:55] LABS: MANUAL DIFF FLAG NO
[2024-01-02 07:00] LABS: Basophils Absolute Auto 0.1 X10*3/uL (0.0-0.2); Basophils Percent Auto 0.5 % (0-2); Eosinophils Absolute Auto 0.4 X10*3/uL (0.0-0.4); Eosinophils Percent Auto 4.2 % (0-4); Hematocrit 39.9 % (42.0-52.0); Imm Gran Abs Auto 0.03 X10*3/uL (0.00-0.03); Imm Gran Pct Auto 0.3 % (0.0-0.4); Lymphocytes Absolute Auto 2.1 X10*3/uL (1.2-4.9); Lymphocytes Percent Auto 21.9 % (20-40); Mean Corpuscular HGB Conc 35.1 g/dl (31.0-36.0); Mean Corpuscular Hemoglobin 33.9 pg (27.0-33.0); Mean Corpuscular Volume 96.6 fL (80.0-98.0); Mean Platelet Volume 9.9 fL (9.4-12.4); Monocytes Absolute Auto 1.2 X10*3/uL (0.1-1.2); Monocytes Percent Auto 12.2 % (2-11); Neutrophils Absolute Auto 5.8 x10*3/uL (2.0-8.3); Neutrophils Percent Auto 60.9 % (45-73); Platelet Count 145 X10*3/uL (160-400); Red Blood Count 4.13 X10*6/uL (4.60-5.80); White Blood Count 9.5 X10*3/uL (4.8-10.8)
[2024-01-02 08:00] VITALS: BP 133/80; PULSE 110; RESP 18; TEMP 37; O2SAT 95
[2024-01-02 08:30] LABS: Anion Gap 14 (12-20); Blood Urea Nitrogen 10 mg/dL (9-16); Calcium 9.9 mg/dL (8.4-10.2); Carbon Dioxide 32 mmol/L (22-29); Chloride 96 mmol/L (96-108); Creatinine Clr Calc Pharmacy 147.2; Estimated Glomerular Filt Rate > 60; Glucose Fasting 111 mg/dL (60-99); Potassium 3.5 mmol/L (3.3-5.1); Sodium 138 mmol/L (135-145)
[2024-01-02] MEDS: Colchicine 0.6 MG TABLET PO (09:21)
[2024-01-02] MEDS: Enoxaparin Sodium 40 MG/0.4 ML SYRINGE SUBCUT (09:21)
[2024-01-02] MEDS: Gabapentin 100 MG CAPSULE 200 MG PO (09:21)
[2024-01-02] MEDS: Phenytoin Sodium Extended 100 MG CAPSULE 200 MG PO ×2 (09:21→14:31)
[2024-01-02] MEDS: 0.9 % Sodium Chloride Flush 3 ML SYRINGE IVFLUSH (09:22)
[2024-01-02] MEDS: allopurinoL 300 MG TABLET 600 MG PO (09:22)
[2024-01-02] MEDS: hydroCHLOROthiazide 12.5 MG TABLET PO (09:22)
[2024-01-02] MEDS: Losartan Potassium 50 MG TABLET 100 MG PO (09:22)
[2024-01-02 10:06] VITALS: BP 133/80; PULSE 110; O2SAT 95
[2024-01-02] MEDS: Tamsulosin HCL 0.4 MG CAPSULE PO (14:32)
[2024-01-02 15:13] VITALS: BP 131/84; PULSE 112; RESP 18; TEMP 36.9; O2SAT 95
--- NOTE | 2024-01-02 15:17 | MHC.CM.PN ---
Patient medically cleared for dc home w/ new [facility] for SN/PT. Will d/c w/ moore in place. Brother will transport home at 5pm. RN aware. [facility] aware of dc.
--- NOTE | 2024-01-16 15:54 | P.OP_ITS ---
Operative Note Operative Note Date of Service: 12/31/23 Narrative: Date of Service: 12/31/23 Pre-op diagnosis: right knee OA Post-op diagnosis: same Procedure: Right TKA Implants: [place] [employer] press fit posterior substituting 07/19/12ps/32a Surgeon: Ruddy Castelan MD Anesthesia: GETA and regional Was an Sleeve Setter Lockstitch used for this Procedure?: Yes Sleeve Setter Lockstitch: Estefany Drummond Estimated blood loss (mL): 50 Tourniquet time (min): 60 IV fluids (mL): 1,000 Pathology: other Condition: stable Disposition: PACU Procedure in detail: The patient was brought to the operating room and prepped and draped in standard sterile fashion. A time-out was called to identify proper site proper procedure proper surgeon and IV antibiotics were administered. 1 g of IV tranexamic acid was administered. I began by making a midline incision to the retinaculum and performed a medial parapatellar arthrotomy. The patella was translated laterally and the knee was flexed up. There was severe osteoarthritis involving predominantly the lateral compartment. I performed a small medial peel and res ected the infrapatellar fat pad. [place]'s line was then used to drill my intramedullary femoral guide and my distal femur cut of 12 mm was made in 5 degrees of valgus while protecting the soft tissues. The epicondylar axis was used for reference as the lateral femoral condyle was slightly diminutive but not severely so. I then measured a # 5 femur and placed my cutting guide and made my anterior posterior and chamfer cuts in 3 degrees of external rotation while protecting the soft tissues at all times. I then made my box but removing the PCL. Once I was satisfied with my cuts I turned my attention to the tibia. I removed the meniscus medially and laterally and , using an external cutting guide, in line with the tibial crest and the third ray, I made my distal tibial cut in 0 deg slope of while protecting the posterior soft tissues at all times. An extension block was used to confirm appropriate amount of bony resection. I then sized a #5 tibia and once I was satisfied that there was complete tibial coverage I placed my trial and with the trial femur in place took the knee through range of motion. I was satisfied with the extension and flexion as well as the balance at 0, 30 and 90 degrees. I then turned my attention to the patella where I removed 1 cm from the undersurface of the patella and then trialed a 32a patellar button. Again the knee was taken through range of motion I was satisfied with the tracking. I then prepared the tibia with a drill and punch. A femoral bone plug was placed and the knee was irrigated copiously. I then press fit the patella, tibia and femur in standard fashion. Once the cement was hard on the back table all excess cement was removed and I trialed different inserts until I selected a #13ps insert. The final insert was placed and local TXA was administered. The knee was then closed with a running Quill suture, a 3 0 Vicryl and marilin on the skin. Patient was then placed in sterile dressing and brought to recovery room in stable condition there were no known complications.
== END 2024-01-02 18:15 | disposition home health service (06) | DRG 326 ==
LOC: HO.SSSA 06:47 → HO.S3 10:46
PROVIDERS: Physician Assistant; Admitting Provider Orthopaedic Surgery; PCP Internal Medicine; Visit Provider Orthopaedic Surgery
PROC: 0SRC0JA Replacement of Right Knee Joint with Synthetic Substitute, Uncemented, Open Approach (ICD-10-PCS; CPT 27447; principal; 2023-12-31 08:30)
DX: M17.11 Unilateral primary osteoarthritis, right knee (principal); G40.909 Epilepsy, unspecified, not intractable, without status epilepticus; M06.9 Rheumatoid arthritis, unspecified; Z23 Encounter for immunization; R33.9 Retention of urine, unspecified; K21.9 Gastro-esophageal reflux disease without esophagitis; G89.18 Other acute postprocedural pain; Z86.718 Personal history of other venous thrombosis and embolism; Z79.01 Long term (current) use of anticoagulants; Z98.84 Bariatric surgery status; Z79.52 Long term (current) use of systemic steroids; Z79.899 Other long term (current) drug therapy
CPT/HCPCS: 36415; 73560; 80048; 82565; 85025; 86850; 86900; 86901; 87640; 87641; 88305; 88311; 90656; 93005; 97116; 97162; 97166; 97530; 97535; C1758; C1776; J0131; J0665; J0690; J1100; J1171; J1650; J1720; J2003; J2704; J3010; J7120

== ENCOUNTER 2023-12-31 06:46 | Outpatient (BNV) | payer MEDICAID, SELFPAY | END 2023-12-31 08:07 | PROVIDERS: Admitting Provider Orthopaedic Surgery; PCP Internal Medicine; Visit Provider Internal Medicine | DX: Z98.890 Other specified postprocedural states (principal) | CPT/HCPCS: 93010 ==

== ENCOUNTER → 2023-12-31 06:46 | Outpatient (BNV) | payer MEDICAID, SELFPAY | PROVIDERS: Admitting Provider Orthopaedic Surgery; PCP Internal Medicine; Visit Provider Orthopaedic Surgery | DX: R33.9 Retention of urine, unspecified (principal); Z96.651 Presence of right artificial knee joint; E66.01 Morbid (severe) obesity due to excess calories | CPT/HCPCS: 27447; 99024; G0180 ==

== ENCOUNTER → 2023-12-31 06:46 | Outpatient (BNV) | payer MEDICAID, SELFPAY | PROVIDERS: Admitting Provider Orthopaedic Surgery; PCP Internal Medicine; Visit Provider Urology | DX: R33.9 Retention of urine, unspecified (principal) | CPT/HCPCS: 99222 ==

== ENCOUNTER → 2023-12-31 06:46 | Outpatient (BNV) | payer MEDICAID, SELFPAY | PROVIDERS: Admitting Provider Orthopaedic Surgery; PCP Internal Medicine; Visit Provider Physician Assistant | DX: Z96.651 Presence of right artificial knee joint (principal) | CPT/HCPCS: 99222 ==

== ENCOUNTER 2024-01-10 21:14 | Emergency (ER) | payer MEDICAID, SELFPAY ==
[2024-01-10 21:17] VITALS: BP 140/84; PULSE 104; O2SAT 97
[2024-01-10 21:24] VITALS: BP 117/77; PULSE 111; RESP 18; TEMP 36.6; O2SAT 98; BMI 47.1
--- NOTE | 2024-01-10 21:40 | PC.NURSE ---
pt biba from home, a&ox4, respirations even and unlabored. pt reporting onset of lower abdominal discomfort and blood in urine x1 hour. pt reports he feels as if his bladder is full and feels like he can not pee. pt reports he had the moore placed for knee surgery, and reports its going to be removed on friday. pt denies chest pain, sob, n/v/d. urine sample obtained from moore port and sent to lab.
[2024-01-10 22:03] LABS: Appearance Urine Cloudy; Bacteria Urine 1+ (None Seen); Color Urine Red; Glucose Urine UA Negative (Negative); Hyaline Casts Urine 0-2 /LPF (0-2); Leukocyte Esterase Urine Moderate (2+) (Negative); Nitrite Urine Negative (Negative); RBC Urine >20 /HPF (0-2); Squamous Epithelial Cell Urine 0-2 /HPF (0-2); UACC Culture Trigger YES; UMIC TRIGGER UACC YES; Urine Blood Large (3+) (Negative); Urine Ketones Negative (Negative); Urine Protein 100 (2+) mg/dL (Neg-Trace); WBC Urine 21-50 /HPF (0-5)
[2024-01-10 22:23] VITALS: BP 116/66; PULSE 104; RESP 22; TEMP 37; O2SAT 94
--- NOTE | 2024-01-10 22:46 | ED.MALEGU ---
HPI - Male Genitourinary General Chief complaint: Urogenital-Male Stated complaint: BLEEDING IN CATHETER PER EMS Time Seen by Provider: 01/10/24 22:38 Source: patient, EMS and old records reviewed Mode of arrival: EMS Limitations: no limitations History of Present Illness ED Provider: ARTURO HUGHES Narrative: 48 yo male with PMH of urinary retention, KRZYSZTOF, arthritis, HTN, seizures, DVT on eliquis, GERD here with c/o hematuria x a few hours. No pain, fevers, no clots. He denies injury but did bathe him tonight and it started after that. He is due for removal Friday. He has not bled before. MD Complaint: other (hematuria) Onset (ago): hour(s) (few) Duration: intermittent Location: penis Radiation: penis Severity: mild Relieving factors: none Exacerbating factors: none Context: other Associated symptoms: Reports blood in urine Related Data Home Medications ?Medication ?Instructions ?Recorded ?Confirmed phenytoin sodium extended 100 mg 200 mg PO TID 02/07/20 12/31/23 capsule (Dilantin Extended) phenobarbital 97.2 mg tablet 194.4 mg PO BEDTIME 03/28/21 12/22/23 pantoprazole 40 mg tablet,delayed 40 mg PO DAILY@0630 10/24/21 12/22/23 release diclofenac sodium 1 % topical gel 4 g topical QID PRN arthritis pain 03/03/22 12/22/23 (Voltaren Arthritis Pain) losartan 100 mg tablet 100 mg PO DAILY 08/26/22 12/31/23 hydrochlorothiazide 12.5 mg tablet 12.5 mg PO DAILY 12/09/22 01/01/24 sumatriptan succinate 100 mg tablet 100 mg PO DIRECTED PRN migraines 12/09/22 12/22/23 allopurinol 100 mg tablet 100 mg PO BEDTIME 09/12/23 12/22/23 Previous Rx's ?Medication ?Instructions ?Recorded cyclobenzaprine 10 mg tablet 10 mg PO Q8H #20 tabs 07/26/20 cane #1 ea 02/01/21 apixaban 5 mg tablet (Eliquis) 5 mg PO BID #60 tabs 07/21/23 gabapentin 100 mg capsule 200 mg (2 x 100 mg) PO BID #120 08/26/23 caps prednisone 5 mg tablet 5 mg PO DAILY #90 tabs 10/20/23 walker #1 ea 11/25/23 colchicine 0.6 mg tablet 0.6 mg PO BID #180 tabs 12/04/23 Actemra ACTPen 162 mg/0.9 mL 162 mg (0.9 mL) subcut QWEEK #3.6 12/17/23 subcutaneous pen injector mL (tocilizumab) acetaminophen 325 mg tablet 650 mg (2 x 325 mg) PO Q6H PRN 01/02/24 Pain, Mild (Pain Scale 1-3), fever or headache 30 days #240 tabs tamsulosin 0.4 mg capsule 0.4 mg PO DAILY 14 days #14 caps 01/02/24 allopurinol 300 mg tablet 600 mg (2 x 300 mg) PO DAILY #180 01/06/24 tabs oxycodone 5 mg tablet 5 mg PO Q4H PRN Pain, 01/09/24 Moderate(Pain Scale 4-6) 7 days #42 tabs levofloxacin 500 mg tablet 500 mg PO DAILY #6 tabs 01/10/24 Allergies Allergy/AdvReac Type Severity Reaction Status Date / Time celecoxib Allergy Severe Anaphylaxis Verified 01/10/24 21:27 Sulfa (Sulfonamide Allergy Severe DIFFICULTY Verified 01/10/24 21:27 Antibiotics) BREATHING, [SULFA (SULFONAMIDE RASH, ANTIBIOTICS)] rash, hypertension Review of Systems Review of Systems: Constitutional : No Fever, No Chills, No Fatigue ENT/Mouth : No sore throat, No Rhinorrhea Eyes: No Eye Pain, No Swelling, No Redness Cardiovascular : No Chest Pain, No SOB, No Dyspnea on Exertion Respiratory : No Cough, No Sputum Gastrointestinal : No Nausea, No Vomiting, No Diarrhea, No abdominal Pain Genitourinary : No Dysuria, No Urinary Frequency, pos Hematuria, Musculoskeletal : No joint pain, No Myalgias, No Joint Swelling Skin : No Skin Lesions, No rash Neuro : No Weakness, No Numbness, No Dizziness, no Headache Psych : No Anxiety/Panic, No Depression Heme/Lymph: No Bruising, No Bleeding,No Lymphadenopathy Endocrine : No Polyuria, No Polydipsia All other systems reviewed and are negative PMFSH Past Medical History Attestation statement: The following information was validated with the patient. Source: old records reviewed Medical History Arthritis GERD (gastroesophageal reflux disease) On anticoagulant therapy Spinal stenosis of lumbar region at multiple levels Screening examination for infectious disease Chronic tophaceous gout Right leg DVT Rheumatoid arthritis Tachycardia Lumbar radiculopathy HTN (hypertension) Rheumatoid arthritis Sleep apnea History of epilepsy Surgical History Hx of exploratory laparotomy Hx of bariatric surgery History of spinal surgery Family History Family History Maternal Uncle Colon cancer Paternal Aunt Breast cancer Mother Pacemaker Sister Pacemaker Social History Social History Household Members: Spouse Housing: Apartment Are you a primary long term acute care registered nurse to a significant other at home: No Do you presently have visiting nurse or other home services: No Alcohol intake: never Comment: bathroom Patient Tobacco Use Status: Never used Tobacco Smoked in Last 30 Days: No e-Cigarette/Vaping Use: Never Used Use of substances other than those prescribed or required for medical reasons: No Advance Directives: No Advance Directives Information Provided: No Do you have a plan to hurt others: No Plan service: No Current occupational status: disabled Physical Exam Vital Signs: Vital Signs: Last Vital Signs Temp 98.6 F 01/10/24 22:23 Pulse 104 H 01/10/24 22:23 Resp 22 H 01/10/24 22:23 BP 116/66 01/10/24 22:23 Pulse Ox 94 01/10/24 22:23 O2 Del Method Room Air 01/10/24 22:23 BMI result Body Mass Index 47.1 Appearance: Alert. Oriented X3. No acute distress. Eyes: Pupils equal, round and reactive to light. ENT: Pharynx normal. Neck: Normal inspection. Neck supple. CVS: Normal heart rate and rhythm. Pulses normal. Respiratory: No respiratory distress. Breath sounds normal. Abdomen: Soft and nontender. : moore bag is pink but catheter tubing is clearing and yellow no clots noted Skin: Skin warm and dry. Normal skin color. Normal skin turgor. Extremities: No lower extremity edema. No calf ttp Neuro: Oriented X 3. No motor deficit. No sensory deficit. Medical Decision Making Medical Decision Making MDM Narrative: 48 yo male with PMH of urinary retention, KRZYSZTOF, arthritis, HTN, seizures, DVT on eliquis, GERD here with c/o hematuria that is resolving on exam after likely bathing and changing at home. He has no clots, no abdominal pain the catheter is free flowing. Will obtain UA and labs if negative will keep moore in place in case of retention with clots and possible mild trauma. He is aware Differential Diagnosis Differential Diagnoses: The differential diagnosis associated with the presentation includes irration, UTI Admission/Observation Consideration of admission/observation: Escalation of care including admission/observation considered urine clearing on arrival no clots, no pain no retention, labs reassuring Lab Data MDM Lab Attestation statement: I reviewed the patient's lab results. WBC and trace bacteria will place on antibiotics 01/10/24 23:27 01/10/24 23:27 Labs: Lab Results 01/10/24 01/10/24 Range/Units 21:30 23:27 WBC 8.1 (4.8-10.8) X10*3/uL RBC 4.05 L (4.60-5.80) X10*6/uL Hgb 14.1 (14.0-18.0) g/dl Hct 39.2 L (42.0-52.0) % MCV 96.8 (80.0-98.0) fL MCH 34.8 H (27.0-33.0) pg MCHC 36.0 (31.0-36.0) g/dl RDW 13.8 (11.0-16.0) % Plt Count 197 D (160-400) X10*3/uL MPV 9.4 (9.4-12.4) fL Immature Gran % (Auto) 0.5 H (0.0-0.4) % Neut % (Auto) 62.1 (45-73) % Lymph % (Auto) 20.7 (20-40) % [place] % (Auto) 12.5 H (2-11) % Eos % (Auto) 3.8 (0-4) % Baso % (Auto) 0.4 (0-2) % Lymph # (Auto) 1.7 (1.2-4.9) X10*3/uL [place] # (Auto) 1.0 (0.1-1.2) X10*3/uL Eos # (Auto) 0.3 (0.0-0.4) X10*3/uL Baso # (Auto) 0.0 (0.0-0.2) X10*3/uL Abs Immat Gran (auto) 0.04 H (0.00-0.03) X10*3/uL Absolute Neuts (auto) 5.0 (2.0-8.3) x10*3/uL Absolute Nucleated RBC 0.000 (0.0-0.012) X10*3/uL Nucleated RBC % (auto) 0.0 (0.0-0.2) /100WBC Sodium 141 (135-145) mmol/L Potassium 4.0 (3.3-5.1) mmol/L Chloride 100 (96-108) mmol/L Carbon Dioxide 30 H (22-29) mmol/L Anion Gap 15 (12-20) BUN 12 (9-16) mg/dL Creatinine 0.94 (0.5-1.4) mg/dL Estim Creat Clear Calc 140.5 Estimated GFR > 60 Random Glucose 96 (60-115) mg/dL Calcium 9.9 (8.4-10.2) mg/dL Urine Color Red A Urine Appearance Cloudy Urine pH 6.0 (5.0-9.0) Ur Specific [place] 1.010 (1.005-1.025) Urine Protein 100 (2+) H (Neg-Trace) mg/dL Urine Glucose (UA) Negative (Negative) mg/dL Urine Ketones Negative (Negative) mg/dL Urine Blood Large (3+) H (Negative) Urine Nitrite Negative (Negative) Ur Leukocyte Esterase Moderate (2+) H (Negative) Urine RBC >20 H (0-2) /HPF Urine WBC 21-50 H (0-5) /HPF Ur Squamous Epith Cells 0-2 (0-2) /HPF Urine Bacteria 1+ (None Seen) Hyaline Casts 0-2 (0-2) /LPF External Record Review External record reviewed: Office record Prescription Management I considered prescription management with: Antibiotic Discharge Plan Discharge Clinical Impression: Hematuria Qualifiers: Hematuria type: gross Qualified Code(s): R31.0 - Gross hematuria Patient Disposition: Home, Self-Care Instructions: Hematuria (ED) Additional Instructions: return for blockage of catheter, worsening blood that is much brighter and appears more, clots that are larger than a quarter, weakness, dizziness, fevers or any other concerns slight bacteria in urine will place on antibiotic follow up on Friday for removal Prescriptions: New levofloxacin 500 mg tablet 500 mg PO DAILY Qty: 6 0RF No Action (DME) cane Device See Rx Instructions .Route Qty: 1 0RF Rx Instructions: As directed Eliquis 5 mg tablet 5 mg PO BID Qty: 60 5RF gabapentin 100 mg capsule 200 mg PO BID Qty: 120 3RF (DME) walker Misc See Rx Instructions .ROUTE .MEDSUPPLY Qty: 1 0RF Rx Instructions: Folding front wheeled walker colchicine 0.6 mg tablet 0.6 mg PO BID Qty: 180 1RF Actemra ACTPen 162 mg/0.9 mL pen injector 162 mg subcut QWEEK Qty: 3.6 2RF allopurinol 300 mg tablet 600 mg PO DAILY Qty: 180 2RF oxycodone 5 mg tablet 5 mg PO Q4H PRN (Reason: Pain, Moderate(Pain Scale 4-6)) 7 Days Qty: 42 0RF Rx Instructions: Partial Fill upon patient request. phenytoin sodium extended [Dilantin Extended] 100 mg Capsule 200 mg PO TID phenobarbital 97.2 mg tablet 194.4 mg PO BEDTIME cyclobenzaprine 10 mg tablet 10 mg PO Q8H Qty: 20 0RF diclofenac sodium [Voltaren Arthritis Pain] 1 % gel 4 g topical QID PRN (Reason: arthritis pain) Rx Instructions: apply to hands, single knee, ankle, foot; for foot includes sole/toes/top of foot acetaminophen 325 mg Tablet 650 mg PO Q6H PRN (Reason: Pain, Mild (Pain Scale 1-3), fever or headache) 30 Days Qty: 240 0RF tamsulosin 0.4 mg Capsule 0.4 mg PO DAILY 14 Days Qty: 14 0RF pantoprazole 40 mg tablet,delayed release (DR/EC) 40 mg PO DAILY@0630 hydrochlorothiazide 12.5 mg tablet 12.5 mg PO DAILY sumatriptan succinate 100 mg tablet 100 mg PO DIRECTED PRN (Reason: migraines) prednisone 5 mg tablet 5 mg PO DAILY Qty: 90 0RF losartan 100 mg tablet 100 mg PO DAILY allopurinol 100 mg tablet 100 mg PO BEDTIME Rx Instructions: To be taken with the twice a day with two 300 mg allopurinol tablets -total daily dose 800 mg Print Language: Polish
[2024-01-10 23:31] LABS: MANUAL DIFF FLAG NO
[2024-01-10 23:33] LABS: Basophils Percent Auto 0.4 % (0-2); Eosinophils Absolute Auto 0.3 X10*3/uL (0.0-0.4); Eosinophils Percent Auto 3.8 % (0-4); Hematocrit 39.2 % (42.0-52.0); Hemoglobin 14.1 g/dl (14.0-18.0); Imm Gran Abs Auto 0.04 X10*3/uL (0.00-0.03); Imm Gran Pct Auto 0.5 % (0.0-0.4); Lymphocytes Absolute Auto 1.7 X10*3/uL (1.2-4.9); Lymphocytes Percent Auto 20.7 % (20-40); Mean Corpuscular Hemoglobin 34.8 pg (27.0-33.0); Mean Corpuscular Volume 96.8 fL (80.0-98.0); Mean Platelet Volume 9.4 fL (9.4-12.4); Monocytes Percent Auto 12.5 % (2-11); Neutrophils Percent Auto 62.1 % (45-73); Platelet Count 197 X10*3/uL (160-400); Red Blood Count 4.05 X10*6/uL (4.60-5.80); Red Cell Distribution Width 13.8 % (11.0-16.0); White Blood Count 8.1 X10*3/uL (4.8-10.8)
[2024-01-10 23:46] LABS: Anion Gap 15 (12-20); Blood Urea Nitrogen 12 mg/dL (9-16); Calcium 9.9 mg/dL (8.4-10.2); Carbon Dioxide 30 mmol/L (22-29); Chloride 100 mmol/L (96-108); Creatinine Clr Calc Pharmacy 140.5; Estimated Glomerular Filt Rate > 60; Glucose Random 96 mg/dL (60-115); Sodium 141 mmol/L (135-145)
[2024-01-11 00:19] VITALS: BP 133/79; PULSE 100; RESP 18; TEMP 37.1; O2SAT 99
[2024-01-11] MEDS: levoFLOXacin 500 MG TABLET PO (00:20)
[2024-01-11 00:25] VITALS: BP 133/79; PULSE 100; RESP 18; TEMP 37.1; O2SAT 99
== END 2024-01-11 02:51 | disposition home or self-care (01) ==
PROVIDERS: Emergency Provider Emergency Medicine; PCP Internal Medicine
DX: R31.0 Gross hematuria (principal); R33.9 Retention of urine, unspecified; Z86.718 Personal history of other venous thrombosis and embolism; Z79.01 Long term (current) use of anticoagulants
CPT/HCPCS: 36415; 80048; 81001; 85025; 87086; 87088; 87186; 99283; 99285

== ENCOUNTER → 2024-01-12 08:21 | Outpatient (BNVA) | payer MEDICAID, SELFPAY | PROVIDERS: PCP Internal Medicine; Visit Provider Urology | DX: R33.9 Retention of urine, unspecified (principal) | CPT/HCPCS: 51700; 51798 ==

== ENCOUNTER → 2024-01-15 13:25 | Outpatient (BNVA) | payer MEDICAID, SELFPAY | PROVIDERS: PCP Internal Medicine; Visit Provider Urology | DX: Z47.1 Aftercare following joint replacement surgery (principal); Z96.651 Presence of right artificial knee joint | CPT/HCPCS: 51798; 99212 ==

== ENCOUNTER 2024-01-15 14:09 | Outpatient (AMB) | payer MEDICAID, SELFPAY ==
--- NOTE | 2024-01-15 14:22 | MHC.OFFVIS ---
Vital Signs 01/15/24 14:25 Height 5 ft 10 in Weight 328 lb 7.82 oz BMI 47.1 Intake Visit Reasons: 2WK PO: R TKA w/NE 12/31/23 Intake Note: Gómez is a 48 yo male who presents today post-operatively s/p right TKA with Dr. Castelan, DOS: 12/31/23. Patient reports he is doing much better, he states he can already see the improvement. He continues to take Oxycodone for pain, with relief. He is also participating in outpatient PT. Light Technician Required: Yes Light Technician Language: Burnisher And Bumper Name: SkyeKENZIE/VALERIE Information Interpreted: clinical only Allergies celecoxib Allergy (Severe, Verified 01/15/24 14:27) Anaphylaxis Sulfa (Sulfonamide Antibiotics) [SULFA (SULFONAMIDE ANTIBIOTICS)] Allergy (Severe, Verified 01/15/24 14:27) DIFFICULTY BREATHING, RASH, rash, hypertension HPI HPI 2WK PO: R TKA w/NE 12/31/23: Details: 48-year-old male, who is Guyanese speaking, presents in the office today for a 15 days status post right total knee arthroplasty which was performed on 12/31/[address] Castelan. While in the office today, the patient reports that he has noticed improvements in his right knee. He continues to take oxycodone for pain. [facility] Medical History Arthritis GERD (gastroesophageal reflux disease) On anticoagulant therapy Spinal stenosis of lumbar region at multiple levels Screening examination for infectious disease Chronic tophaceous gout Right leg DVT Rheumatoid arthritis Tachycardia Lumbar radiculopathy HTN (hypertension) Rheumatoid arthritis Sleep apnea History of epilepsy Surgical History Hx of exploratory laparotomy Hx of bariatric surgery History of spinal surgery Family History Maternal Uncle Colon cancer Paternal Aunt Breast cancer Mother Pacemaker Sister Pacemaker Social History Household Members: Spouse Housing: Apartment Are you a primary primary health care nurse to a significant other at home: No Do you presently have visiting nurse or other home services: No Alcohol intake: never Comment: bathroom Patient Tobacco Use Status: Never used Tobacco e-Cigarette/Vaping Use: Never Used service: No Current occupational status: disabled Review of Systems Const All systems reviewed & are unremarkable except as noted in HPI and below Physical Exam Vital Signs: BMI result Body Mass Index 47.1 Const General: cooperative, healthy appearing and no acute distress Resp Effort & Inspection: normal respiratory effort and able to speak in complete sentences Cardio Rate: regular rate Peripheral pulses: Peripheral pulses 2+ throughout GI Palpation (GI): Soft to palpation Skin Lesions: no lesions Rashes: no rashes Extrem Other: Right knee: Incision site is clean, dry, and intact. [place] intact. No surrounding erythema or drainage. No signs of infection. ROM 0-90 degrees. NVI. Assessment & Plan Assessment & Plan (1) Status post right knee replacement: Code(s): Z96.651 - Presence of right artificial knee joint Category: Surgical Plan Mr. Pelletier is a 48-year-old male, who is Guyanese speaking, presents in the office today for a 15 days status post right total knee arthroplasty which was performed on 12/31/[address] Castelan. While in the office today, the patient reports that he has noticed improvements in his right knee. He continues to take oxycodone for pain. He is also attending outpatient physical therapy. Brissa removed and steri-strips applied. He will attend outpatient physical therapy and I have placed a referred for PT today. Follow-up will be in [address] Castelan, or sooner if needed. Orders: Orders PT Evaluation and Treatment 01/15/24 Z96.651 - Presence of right artificial knee joint Patient Instructions: Scribed by Becky Sung medical clerk, for Estefany Drummond PA-C on 01/15/24 at 2:53 pm EST. Coding Level of Care Code Global (15291) Diagnoses Status post right knee replacement Z96.651
[2024-01-15 14:25] VITALS: BMI 47.1
== END 2024-01-15 15:29 | disposition home or self-care (01) ==
LOC: HO.HOS 14:09
PROVIDERS: PCP Internal Medicine; Visit Provider Physician Assistant
DX: Z96.651 Presence of right artificial knee joint (principal)
CPT/HCPCS: 99024

== ENCOUNTER 2024-02-05 09:10 | Outpatient (AMB) | payer MEDICAID, SELFPAY ==
--- NOTE | 2024-02-05 09:25 | A.OFFVIS_ITS ---
Vital Signs 02/05/24 09:27 Height 5 ft 10 in Weight 328 lb BMI 47.1 Intake Visit Reasons: PO - R TKA w/NE 12/31/23 Intake Note: Gómez is a 48 year old male who presents today for a post operative appointment s/p right TKA with Dr. Castelan, DOS: 12/31/23. Patient reports that he is doing well, no concerns. He is working with [facility] and has a contract with them, he states that they will resume prescribing medications Allergies celecoxib Allergy (Severe, Verified 02/05/24 09:27) Anaphylaxis Sulfa (Sulfonamide Antibiotics) [SULFA (SULFONAMIDE ANTIBIOTICS)] Allergy (Severe, Verified 02/05/24 09:27) DIFFICULTY BREATHING, RASH, rash, hypertension HPI HPI PO - R TKA w/NE 12/31/23: Details: Gómez is a 48 year old male who presents today for a post operative appointment s/p right TKA with Dr. Castelan, DOS: 12/31/23. Patient reports that he is doing well, no concerns. He is working with [facility] and has a contract with them, he states that they will resume prescribing medications PFSH Medical History Arthritis GERD (gastroesophageal reflux disease) On anticoagulant therapy Spinal stenosis of lumbar region at multiple levels Screening examination for infectious disease Chronic tophaceous gout Right leg DVT Rheumatoid arthritis Tachycardia Lumbar radiculopathy HTN (hypertension) Rheumatoid arthritis Sleep apnea History of epilepsy Surgical History Hx of exploratory laparotomy Hx of bariatric surgery History of spinal surgery Family History Maternal Uncle Colon cancer Paternal Aunt Breast cancer Mother Pacemaker Sister Pacemaker Social History Household Members: Spouse Housing: Apartment Are you a primary critical care unit nurse to a significant other at home: No Do you presently have visiting nurse or other home services: No Alcohol intake: never Comment: bathroom Patient Tobacco Use Status: Never used Tobacco e-Cigarette/Vaping Use: Never Used service: No Current occupational status: disabled Physical Exam Vital Signs: BMI result Body Mass Index 47.1 Extrem Other: 0-100 degrees motion Well-healed incision No effusion No gait antalgia Assessment & Plan Assessment & Plan (1) Status post right knee replacement: Code(s): Z96.651 - Presence of right artificial knee joint Category: Surgical Plan: Status post right knee replacement doing well. Coding Level of Care Code Global (94811) Diagnoses Status post right knee replacement Z96.651
[2024-02-05 09:27] VITALS: BMI 47.1
== END 2024-02-05 09:51 | disposition home or self-care (01) ==
PROVIDERS: PCP Internal Medicine; Visit Provider Orthopaedic Surgery
DX: Z96.651 Presence of right artificial knee joint (principal)
CPT/HCPCS: 99024

== ENCOUNTER → 2024-02-05 09:10 | Outpatient (BNVA) | payer MEDICAID, SELFPAY | PROVIDERS: PCP Internal Medicine; Visit Provider Orthopaedic Surgery | DX: Z96.651 Presence of right artificial knee joint (principal) | CPT/HCPCS: 99212 ==

== ENCOUNTER 2024-02-18 08:56 | Outpatient (AMB) | payer MEDICAID, SELFPAY ==
--- NOTE | 2024-02-18 09:00 | MHC.OFFVIS ---
Vital Signs 02/18/24 09:06 Height 5 ft 10 in Weight 322 lb 1.526 oz BMI 46.2 BP 122/80 Blood Pressure Location Lt brachial Position Sitting Respiration 18 Pulse 103 H Pulse Source Pulse Oximeter Pulse Oximetry (%) 98 Oxygen Delivery Method Room Air Intake Visit Reasons: gout/cm Intake Note: Patient presents for Gout. Sewing Pattern Layout Technician Required: Yes Sewing Pattern Layout Technician Language: System Archive Analyst Services: Sewing Pattern Layout Technician Present Sewing Pattern Layout Technician Name: Darcy [id number] Information Interpreted: non-clinical & clinical Allergies celecoxib Allergy (Severe, Verified 02/18/24 09:05) Anaphylaxis Sulfa (Sulfonamide Antibiotics) [SULFA (SULFONAMIDE ANTIBIOTICS)] Allergy (Severe, Verified 02/18/24 09:05) DIFFICULTY BREATHING, RASH, rash, hypertension Medication List - Last Reconciled 02/18/24 by Georgina Aguayo MD acetaminophen 650 mg (2 x 325 mg) PO Q6H PRN 30 days Actemra ACTPen (tocilizumab) 162 mg (0.9 mL) subcut QWEEK NS alfuzosin ER 10 mg PO DAILY allopurinol 600 mg (2 x 300 mg) PO DAILY allopurinol 100 mg PO BEDTIME apixaban (Eliquis) 5 mg PO BID cane As directed colchicine 0.6 mg PO BID cyclobenzaprine 10 mg PO Q8H diclofenac sodium 1% (Voltaren Arthritis Pain) 4 grams topical QID PRN gabapentin 200 mg (2 x 100 mg) PO BID hydrochlorothiazide 12.5 mg PO DAILY losartan 100 mg PO DAILY oxycodone 5 mg PO Q8H PRN 7 days pantoprazole 40 mg PO DAILY@0630 phenobarbital 194.4 mg PO BEDTIME phenytoin sodium extended (Dilantin Extended) 200 mg PO TID prednisone 5 mg PO DAILY sumatriptan succinate 100 mg PO DIRECTED PRN walker Folding front wheeled walker HPI Comments Details: This is a 48-year-old male with tophaceous gout and rheumatoid arthritis who presents for follow-up. He is on allopurinol 700 mg daily, colchicine 0.6 mg Twice daily, prednisone 5 mg daily and Actemra injection once weekly. He is s/p right knee replacement last month. Has recovered uneventfully and doing physical therapy now. States that he is doing very well overall. Has no complaints today [facility] Medical History Arthritis GERD (gastroesophageal reflux disease) On anticoagulant therapy Spinal stenosis of lumbar region at multiple levels Screening examination for infectious disease Chronic tophaceous gout Right leg DVT Rheumatoid arthritis Tachycardia Lumbar radiculopathy HTN (hypertension) Rheumatoid arthritis Sleep apnea History of epilepsy Surgical History History of knee replacement Hx of exploratory laparotomy Hx of bariatric surgery History of spinal surgery Family History Maternal Uncle Colon cancer Paternal Aunt Breast cancer Mother Pacemaker Sister Pacemaker Social History Household Members: Spouse Housing: Apartment Are you a primary home care and home health aides teacher to a significant other at home: No Do you presently have visiting nurse or other home services: No Alcohol intake: never Comment: bathroom Patient Tobacco Use Status: Never used Tobacco e-Cigarette/Vaping Use: Never Used service: No Current occupational status: disabled Physical Exam Vital Signs: Last Vital Signs Pulse 103 H 02/18/24 09:06 Resp 18 02/18/24 09:06 BP 122/80 02/18/24 09:06 Pulse Ox 98 02/18/24 09:06 Oxygen Delivery Method Room Air 02/18/24 09:06 BMI result Body Mass Index 46.2 Const General: cooperative, healthy appearing and comfortable Nutritional Appearance: obese morbidly obese Orientation/consciousness: patient oriented x3 Limitations: no limitations HEENT Head: Yes normocephalic and Yes atraumatic Mouth: moist mucous membranes Resp Effort & Inspection: normal respiratory effort and able to speak in complete sentences Skin General skin exam: no rashes or lesions noted Neuro General: patient oriented x3 Extrem Other: No right wrist swelling or tenderness., there is almost no range of motion. No flexion or extension of right wrist No MCP tenderness right hand, negative MCP squeeze test No active synovitis left hand and wrist Normal bilateral hand planning lead strength Mild right knee warmth Assessment & Plan Assessment & Plan (1) Seropositive rheumatoid arthritis: Comment: Claudio 2012-to April 2018 active disease on exam Jada April 2018-January 2021 active disease on exam Ghanshyam January 2021-present -placed on hold 03/06/2022 due to hospital admission for potential infection of the left elbow, final diagnosis olecranon gouty bursitis. The subsequent DMARD treatment for RA stopped. The patient was treated for tophaceous gout Kevzara restarted 05/2023 not effective Actemra 09/2023 effective Code(s): M05.9 - Rheumatoid arthritis with rheumatoid factor, unspecified Category: Medical Plan: This is a 48-year-old male with seropositive RA who presents for follow-up. On Actemra weekly and prednisone 5 mg daily. Doing very well with this regimen. There is no active synovitis on exam today. Continue Actemra 162 mg weekly and prednisone 5 mg daily Plan to taper prednisone next visit Labs before next visit in 3 months (2) Chronic tophaceous gout: Comment: 02/2022: MSU crystals in aspirate of left olecranon 02/2022 Started on allopurinol, colchicine, prednisone 08/20/2022 Canakinumab added for acute gout prevention Code(s): M1A.9XX1 - Chronic gout, unspecified, with tophus (tophi) Category: Medical Plan: Gout is well controlled on allopurinol 700 mg daily, colchicine 0.6 mg Twice daily and prednisone 5 mg daily. Continue current meds. 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 Patient fully aware. Advised patient to seek medical care [facility] if patient has an infection and advised patient to stop the medication until the infection is resolved. (4) Osteoarthritis of knees, bilateral: Code(s): M17.0 - Bilateral primary osteoarthritis of knee Category: Medical Qualifiers: Osteoarthritis type: primary Qualified Code(s): M17.0 - Bilateral primary osteoarthritis of knee Plan: Severe bilateral knee osteoarthritis, he is s/p right knee replacement last month. Has recovered uneventfully Plan I spent 26 minutes reviewing patient's chart, evaluating patient, ordering diagnostic workup, counseling patient and documenting in the chart Orders: Orders Uric Acid 3 Months M05.9 - Rheumatoid arthritis with rheumatoid factor, unspecified, M1A.9XX1 - Chronic gout, unspecified, with tophus (tophi) Complete Blood Count Auto Diff 3 Months M05.9 - Rheumatoid arthritis with rheumatoid factor, unspecified, M1A.9XX1 - Chronic gout, unspecified, with tophus (tophi) Comprehensive Met. Panel 3 Months M05.9 - Rheumatoid arthritis with rheumatoid factor, unspecified, M1A.9XX1 - Chronic gout, unspecified, with tophus (tophi) C Reactive Protein 3 Months M05.9 - Rheumatoid arthritis with rheumatoid factor, unspecified, M1A.9XX1 - Chronic gout, unspecified, with tophus (tophi) Erythrocyte Sedimentation Rate 3 Months M05.9 - Rheumatoid arthritis with rheumatoid factor, unspecified, M1A.9XX1 - Chronic gout, unspecified, with tophus (tophi) Coding Level of Care Code Est Pt Level 4 (36569) Complex EM visit Add On G2211 Diagnoses Seropositive rheumatoid arthritis M05.9 Chronic tophaceous gout M1A.9XX1 alf use of drug Z79.899 Primary osteoarthritis of both knees M17.0 Osteoarthritis type: primary
[2024-02-18 09:06] VITALS: BP 122/80; PULSE 103; RESP 18; O2SAT 98; BMI 46.2
== END 2024-02-18 09:22 | disposition home or self-care (01) ==
PROVIDERS: PCP Internal Medicine; Visit Provider Student in an Organized Health Care Education/Training Program
DX: M05.79 Rheumatoid arthritis with rheumatoid factor of multiple sites without organ or systems involvement (principal); M1A.9XX1 Chronic gout, unspecified, with tophus (tophi); Z79.899 Other long term (current) drug therapy; M17.0 Bilateral primary osteoarthritis of knee
CPT/HCPCS: 99213

== ENCOUNTER → 2024-02-18 08:56 | Outpatient (BNVA) | payer MEDICAID, SELFPAY | PROVIDERS: PCP Internal Medicine; Visit Provider Student in an Organized Health Care Education/Training Program | DX: M1A.9XX1 Chronic gout, unspecified, with tophus (tophi) (principal); M05.9 Rheumatoid arthritis with rheumatoid factor, unspecified; M17.0 Bilateral primary osteoarthritis of knee; Z79.899 Other long term (current) drug therapy | CPT/HCPCS: 99212 ==

== ENCOUNTER 2024-03-12 10:03 | Outpatient (RCR) | payer MEDICAID, SELFPAY ==
--- NOTE | 2024-02-17 13:02 | MHC.PT.EP ---
[facility] [place] Office [place] Office [place] Office [address] Yobani Saul [address] [phone] F: [phone] F: [phone] F: [phone] F: [phone] Physical Therapy Plan of Care Date of Evaluation: 02/17/24 Date of Surgery: 12/31/23 Diagnosis: R TKR Assessment: Pt IS 48 YO M S/P R TKR BY DR ALTMAN ON 01/31/24. DC [facility] 02/02/24. HOME PT UNTIL 4 DAYS AGO. PRESENTS TO PT WITH SOME LIMITED R KNEE ROM AND STRENGTH WITH PAIN NOTED. Pt CONTINUES TO USE ROLLATOR FOR LONG DISTANCE WALKING (BUT DOES NOT USE AROUND HOME). HAS FLOOR PEDALS FOR BIKE AT HOME. HAS GOOD KNOWLEDGE OF HOME EXERCISES. GOOD PT CANDIDATE TO ADDRESS THESE ISSUES Frequency and Duration: The patient will be seen 2X/WK X 4 WKS Short Term Goals: 1. INCREASED AWARENESS OF KNEE CARE 2. GT WITHOUT AD 3. Pt TO REPORTS LESS LAT KNEE SWELLING ON R Residential Goals: 1. I HEP WITH DC EX PLAN 2. R KNEE ROM 0-120 3. DECREASED R KNEE PAIN AT LEAST 50% WITH ADLS Treatment Plan: Modalities to reduce pain, spasms and effusion. Manual therapy to restore motion and function. Therapeutic exercise to improve strength and flexibility. Neuromuscular re-education for posture and balance. Therapeutic activities to return to functional activities of daily living. Electronically signed by: KIERRA NOEL PT Please sign and return to therapist. Thank you for your referral.
--- NOTE | 2024-04-27 10:45 | MHC.PT.DC ---
[facility] [place] Office [place] Office [place] Office [address] Yobani Saul [address] [phone] F: [phone] F: [phone] F: [phone] F: [phone] Physical Therapy Discharge Report Diagnosis: R TKR Date of Surgery: 12/31/23 Date of Evaluation: 02/17/24 Date of Discharge: 04/27/24 Treatments to Date: 2 Cancellations to Date: No Shows to Date: Discharge Status: Patient Elected to Stop Discharge Summary: Pt SEEN FOR INIT EVAL AND 2 VISITS. Pt LAST SEEN ON 03/12/25. PER ASSESSMENT Gómez was progressed w/LE ex's [facility] and [facility] w/o issue and no knee px through out Pt THEN NO SHOWED LAST SCHEDULED APPT Electronically signed by: KIERRA NOEL PT Please sign and return to therapist. Thank you for your referral.
== END 2024-04-27 10:45 | disposition home or self-care (01) ==
LOC: HO.PT 10:03
PROVIDERS: PCP Internal Medicine; Visit Provider Physician Assistant
DX: Z96.651 Presence of right artificial knee joint (principal)
CPT/HCPCS: 97110; 97161; 97530; 97535

== ENCOUNTER 2024-03-25 09:00 | Outpatient (REF) | payer MEDICAID, SELFPAY ==
--- NOTE | ~2024-03-25 | XR_ITS ---
CLINICAL HISTORY: M25.569 - Pain in unspecified knee AP Bilateral Knees Standing Comparison: None Findings: Postprocedural changes from right knee arthroplasty. Valgus formation of the left knee with severe tricompartment osteoarthritis of the left knee. Calcific tendinitis versus old fragments about the upper margin of the patella. Frontal image not sensitive for effusion. No radiopaque foreign body of the imaged left knee. IMPRESSION: 1. Severe osteoarthritis of the left knee with valgus formation. 2. Postprocedural change from right knee arthroplasty. This document has been electronically signed by: Blue Contreras MD on 03/26/2024 23:20:18
--- NOTE | ~2024-03-25 | XR_ITS ---
CLINICAL HISTORY: M25.561 - Pain in right knee 2 view right knee Comparison: None Findings: Postprocedural changes from right knee arthroplasty. No definite hardware loosening by radiographs. Ligament calcifications, tendon calcifications, and occasions noted. Moderate effusion present, Small loose bodies. Vascular calcifications also noted. IMPRESSION: 1. Post right knee arthroplasty without definite hardware loosening by radiographs. 2. Moderate effusion present. This document has been electronically signed by: Blue Contreras MD on 03/26/2024 23:20:02
== END 2024-03-25 09:01 | disposition home or self-care (01) ==
LOC: HO.HOSX 09:00
PROVIDERS: Visit Provider Orthopaedic Surgery
DX: M25.569 Pain in unspecified knee (principal); M25.561 Pain in right knee; Z96.651 Presence of right artificial knee joint
CPT/HCPCS: 73560; 73562; 99212

== ENCOUNTER 2024-03-25 09:56 | Outpatient (AMB) | payer MEDICAID, SELFPAY ==
[2024-03-25 10:04] VITALS: BMI 46.2
--- NOTE | 2024-03-25 10:04 | MHC.OFFVIS ---
Vital Signs 03/25/24 10:04 Height 5 ft 10 in Weight 322 lb BMI 46.2 Intake Visit Reasons: OV- R TKA w/NE 12/31/23 Intake Note: Gómez is a 48 year old male who presents today for a post operative follow up of his right knee, S/P Right Knee Arthroplasty 12/31/2023. Pain Contract with [facility]. Patient reports that he is doing great & he is moving much better, he has no concerns today Allergies celecoxib Allergy (Severe, Verified 02/18/24 09:05) Anaphylaxis Sulfa (Sulfonamide Antibiotics) [SULFA (SULFONAMIDE ANTIBIOTICS)] Allergy (Severe, Verified 02/18/24 09:05) DIFFICULTY BREATHING, RASH, rash, hypertension HPI HPI OV- R TKA w/NE 12/31/23: Details: Gómez is a 48 year old male who presents today for a post operative follow up of his right knee, S/P Right Knee Arthroplasty 12/31/2023. Pain Contract with [facility]. Patient reports that he is doing great & he is moving much better, he has no concerns today [facility], [facility] Medical History Arthritis GERD (gastroesophageal reflux disease) On anticoagulant therapy Spinal stenosis of lumbar region at multiple levels Screening examination for infectious disease Chronic tophaceous gout Right leg DVT Rheumatoid arthritis Tachycardia Lumbar radiculopathy HTN (hypertension) Rheumatoid arthritis Sleep apnea History of epilepsy Surgical History History of knee replacement Hx of exploratory laparotomy Hx of bariatric surgery History of spinal surgery Family History Maternal Uncle Colon cancer Paternal Aunt Breast cancer Mother Pacemaker Sister Pacemaker Social History Household Members: Spouse Housing: Apartment Are you a primary child care lead teacher to a significant other at home: No Do you presently have visiting nurse or other home services: No Alcohol intake: never Comment: bathroom Patient Tobacco Use Status: Never used Tobacco e-Cigarette/Vaping Use: Never Used service: No Current occupational status: disabled Physical Exam Vital Signs: BMI result Body Mass Index 46.2 Extrem Other: 0-110 inc c/d/i walking comfortably Results Reviewed Results Reviewed: I personally reviewed relevant radiographs. right total knee arthroplasty in expected post operative position with no hardware complications or evidence of loosening Assessment & Plan Assessment & Plan (1) Status post right knee replacement: Code(s): Z96.651 - Presence of right artificial knee joint Category: Surgical Plan: Doing well status post knee replacement. Continue exercises. Follow up 9 months. Orders: Orders XR knee RT 3V Today M25.561 - Pain in right knee XR knee LT 1V Today M25.569 - Pain in unspecified knee Coding Level of Care Code Global (94687) Diagnoses Status post right knee replacement Z96.651
== END 2024-03-25 10:23 | disposition home or self-care (01) ==
PROVIDERS: PCP Internal Medicine; Visit Provider Orthopaedic Surgery
DX: Z96.651 Presence of right artificial knee joint (principal)
CPT/HCPCS: 99024

== ENCOUNTER 2024-05-21 13:10 | Outpatient (REF) | payer MEDICAID, SELFPAY ==
--- NOTE | ~2024-05-21 | US_ITS ---
EXAMINATION: US TRIPLEX LOWER EXTREMITY, RIGHT CLINICAL INFORMATION: History of 5 right lower extremity DVT on blood thinners/antecubital lesion treatment for 3 years COMPARISON: Ultrasound dated December 31, 2021. TECHNIQUE: Color-flow triplex imaging with spectral analysis and compression Doppler were performed on the right lower extremity. FINDINGS: Respiratory variation, normal compression and augmented flow are noted throughout the visualized common femoral vein, superficial femoral vein, profunda femoral vein, popliteal vein and midcalf peroneal and posterior tibial venous segments. There is a 3.5 cm area 5 calcification in the right greater saphenous vein mid calf demonstrated flow on color Doppler interrogation. There is no Toribio's cyst. US/US venous duplex LE RT IMPRESSION: No acute deep venous thrombosis involving the right lower extremity. Electronically signed by: Baldomero Sadler MD 05/21/2024 03:14 PM TAJ
--- OUTSIDE RECORDS SUMMARY | 2024-05-21 14:49 | XMS_ITS | Encounter Summary ---
Author Organization [employer] Address [address] [facility] 7[address] [place] [address] Care Team Providers Care Fleet Service Manager Name Role Phone Shi Lancaster MD Primary Care Provide r Reason for Visit * Reason Onset Date Comments Med Refill 12/04/2023 Encounter Details Date Type Department Care Team ([facility] st Contact Info) Description 12/04/2023 Refill [facility] [address] [place] [address] Shi Lancaster MD [address] [place] [address] Acute deep vein thrombosis (DVT) of proximal vein of lower extremity, unspecified laterality (CMS/HCC) Social History Tobacco Use Types Packs/Day Years Used Date Smoking Tobacco: Former Cigarettes Passive Smoke Exposure: Never Smokeless Tobacco: Never Alcohol Use Standard Drinks/Week Comments Never 0 (1 standard drink = 0.6 oz pur e alcohol) Depression Answer Date Recorded Patient Health Questionnaire-9 Score 0 07/31/2022 Housing Stability Answer Date Recorded What is your housing situation today? I have lorenzo brar 12/31/[address] you li ve. Do you have problems with any of the following? None of the above 12/31/2022 Food Insecurity Answer Date Recorded Within the past 12 months, y ou worried that your food would run out before you got money to buy more: Never True 12/31/2022 Within the past 12 months,th e food you bought just didn't last and you didn't have enough money to get more: Never True Transportation Answer Date Recorded In the past 12 months, has l ack of transportation kept you from medical appts, meetings, work or from getting things needed for daily living? No 12/31/2022 Utilities Answer Date Recorded In the past 12 months, has t he electric, gas, oil or water company threatened to shut off services in your home? No 12/31/2022 Depression Answer Date Recorded Patient Health Questionnaire-2 Score 0 07/31/2022 Sex and Gender Information Value Date Recorded Sex Assigned at Male 01/14/2022 10:17 AM EDT Legal Sex Male 10:17 AM EDT Gender Identity Male 01/14/2022 10:17 AM EDT Sexual Orientation Straight 01/14/2022 10 :17 AM EDT documented as of this encounter Plan of Treatment Upcoming Encounters Date Type Department Care Team (Late st Contact Info) Description 05/27/2024 9:00 AM EDT Clinical Support [facility] [address] [place] [id number] Sosa Hroan RN documented as of this encounter Visit Diagnoses Diagnosis Acute deep vein thrombosis (DVT) of proximal vein of lower extremity, unspecified laterality (CMS/HCC) documented in this encounter Additional Health Concerns Assessment Noted Time PHQ-9 Depression Total Score: 0 08/01/19 23 11:32 AM EDT documented as of this encounter Care Teams Fleet Service Manager Relationship Specialty Start Date End Date Shi Lancaster MD [address] [place] [id number] PCP - General Family Medicine 11/26/17 [facility] 01/03/24 documented as of this encounter
--- OUTSIDE RECORDS SUMMARY | 2024-05-21 14:49 | XMS_ITS | Encounter Summary ---
Author Organization [employer] Address [address] [facility] [address] [place] [address] Care Team Providers Care Arc Cutter Plasma Arc Name Role Phone Shi Lancaster MD Primary Care Provide r Reason for Visit * Reason Comments Med Refill Encounter Details Date Type Department Care Team ([facility] st Contact Info) Description 04/29/2024 Refill [facility] [address] [place] [address] Shi Lancaster MD [address] [place], [place] [phone] Acute deep vein thrombosis (DVT) of proximal [...] housing situation today? I have lorenzo brar 04/30/[address] you li ve. Do you have problems with any of the following? None of the above 04/30/2024 Food Insecurity Answer Date Recorded Within the past 12 months, y ou worried that your food would run out before you got money to buy more: Never True 04/30/2024 Within the past 12 months,th e food you bought just didn't last and you didn't have enough money to get more: Never True Transportation Answer Date Recorded In the past 12 months, has l ack of transportation kept you from medical appts, meetings, work or from getting things needed for daily living? No 04/30/2024 Utilities Answer Date Recorded In the past 12 months, has t he electric, gas, oil or water company threatened to shut off services in your home? No 04/30/2024 Depression Answer Date Recorded Patient Health Questionnaire-2 Score 0 07/31/2022 Internet Access Answer Date Recorded Internet Access Q1 Yes 04/30/2024 Internet Access Q2 Not on file 04/30/2024 Sex and Gender Information Value Date Recorded Sex Assigned at Male 01/14/2022 10:17 AM EDT Legal Sex Male 10:17 AM EDT Gender Identity Male 01/14/2022 10:17 AM EDT Sexual Orientation Straight 01/14/2022 10 :17 AM EDT documented as of this encounter Plan of Treatment Upcoming Encounters Date Type Department Care Team (Late st Contact Info) Description 05/27/2024 9:00 AM EDT Clinical Support [facility] [address] [place] [address] Sosa Horan RN documented as of this encounter Visit Diagnoses Diagnosis Acute deep vein thrombosis (DVT) of proximal vein of lower extremity, unspecified laterality (CMS/HCC) documented in this encounter Additional Health Concerns Assessment Noted Time PHQ-9 Depression Total Score: 0 08/01/19 23 11:32 AM EDT documented as of this encounter Care Teams Arc Cutter Plasma Arc Relationship Specialty Start Date End Date Shi Lancaster MD [address] [place] [id number] PCP - General Family Medicine 11/26/17 [facility] 01/03/24 documented as of this encounter
--- OUTSIDE RECORDS SUMMARY | 2024-05-21 14:49 | XMS_ITS | Encounter Summary ---
Author Organization [employer] Address [address] [facility] [address] [place] [address] Care Team Providers Care Soldering Machine Operator Automatic Name Role Phone Shi Lancaster MD Primary Care Provide r Encounter Details Date Type Department Care Team (Latest Contact Info) Description 05/07/2024 Travel Social History Tobacco Use Types Packs/Day Years Used Date Smoking Tobacco: Former Cigarettes Passive Smoke Exposure: Never Smokeless Tobacco: Never Alcohol Use Standard Drinks/Week Comments Never 0 (1 standard drink = 0.6 oz pur e alcohol) Depression Answer Date Recorded Patient Health Questionnaire-9 Score 0 07/31/2022 Housing Stability Answer Date Recorded What is your housing situation today? I have lorenzodiana brar 04/30/[address] you [...] Description 05/27/2024 9:00 AM EDT Clinical Support [facility] [address] [place] [address] Sosa Horan, RN documented as of this encounter Visit Diagnoses Not on filedocumented in this encounter Additional Health Concerns Assessment Noted Time PHQ-9 Depression Total Score: 0 08/01/19 23 11:32 AM EDT documented as of this encounter Care Teams Soldering Machine Operator Automatic Relationship Specialty Start Date End Date Shi Lancaster MD [address] [place] [address] PCP - General Family Medicine [facility] documented as of this encounter
--- OUTSIDE RECORDS SUMMARY | 2024-05-21 14:49 | XMS_ITS | Encounter Summary ---
Author Organization [employer] Address [address] [place] [address] [address] [place] [address] Care Team Providers Care Vertical Contour Band Saw Operator Name Role Phone Shi Lancaster MD Primary Care Provide r Reason for Visit * Reason Onset Date Comments Appointment Request 09/03/2022 Encounter Details Date Type Department Care Team ([facility] st Contact Info) Description 09/03/2022 Telephone [facility] [address] [place], [place] [phone] Shi Lancaster MD [address] [place], [place] [phone] Appointment Request Social History Tobacco Use Types Packs/Day Years Used Date Smoking Tobacco: Never Passive Smoke Exposure: Never Smokeless Tobacco: Never Depression Answer Date Recorded Patient Health Questionnaire-9 Score 0 07/31/2022 Depression Answer Date Recorded Patient Health Questionnaire-2 Score 0 07/31/2022 Sex and Gender Information Value Date Recorded Sex Assigned at Male 01/14/2022 10:17 AM EDT Legal Sex Male 10:17 AM EDT Gender Identity Male 01/14/2022 10:17 AM EDT Sexual Orientation Straight 01/14/2022 10 :17 AM EDT COVID-19 Exposure Response Date Recorded In the last 10 days, have yo u been in contact with someone who was confirmed or suspected to have Coronavirus/COVID-19? No / Unsure 08/14/2022 10:24 AM EDT documented as of this encounter Miscellaneous Notes * Telephone Encounter - Cielo Hill - 09/06/2022 3:39 PM EDT Tc from patient requesting call back, regarding message below. * Telephone Encounter - Brunilda Randolph - 09/03/2022 10:01 AM EDT Tc from pt requesting to r/s canceled appt on 09/05/22. documented in this encounter Plan of Treatment Upcoming Encounters Date Type Department Care Team (Late st Contact Info) Description 05/27/2024 9:00 AM EDT Clinical Support [facility] [address] [place] [address] Sosa Horan RN documented as of this encounter Visit Diagnoses Not on filedocumented in this encounter Additional Health Concerns Assessment Noted Time PHQ-9 Depression Total Score: 0 08/01/19 11:32 AM EDT documented as of this encounter Care Teams Vertical Contour Band Saw Operator Relationship Specialty Start Date End Date Shi Lancaster MD [address] [place] [address] PCP - General Family Medicine 11/26/17 [facility] 01/03/24 documented as of this encounter
--- OUTSIDE RECORDS SUMMARY | 2024-05-21 14:49 | XMS_ITS | Encounter Summary ---
Author Organization [employer] Address [address] [facility] [address]t [place] [address] Care Team Providers Care Profiling Machine Set Up Operator Name Role Phone Shi Lancaster MD Primary Care Provide r Reason for Visit * Reason Onset Date Comments Med Refill 10/08/2023 Encounter Details Date Type Department Care Team ([facility] st Contact Info) Description 10/08/2023 Refill [facility] [address] [place], [place] [phone] Shi Lancaster MD [address] [place], [place] [phone] Seropositive rheumatoid arthritis (CMS/HCC); Primary osteoarthritis of right knee Social History Tobacco Use Types Packs/Day Years Used Date Smoking Tobacco: Former Cigarettes Passive Smoke Exposure: Never Smokeless Tobacco: Never Depression Answer Date Recorded Patient Health Questionnaire-9 Score 0 07/31/2022 Housing Stability Answer Date Recorded What is your housing situation today? I have lorenzodiana brar 12/31/[address] you [...] Description 05/27/2024 9:00 AM EDT Clinical Support [facility] [address] [place] [address] Sosa Horan RN documented as of this encounter Visit Diagnoses Diagnosis Seropositive rheumatoid arthritis (CMS/[facility]) Primary osteoarthritis of right knee documented in this encounter Additional Health Concerns Assessment Noted Time PHQ-9 Depression Total Score: 0 08/01/19 23 11:32 AM EDT documented as of this encounter Care Teams Profiling Machine Set Up Operator Relationship Specialty Start Date End Date Shi Lancaster MD [address] [place] [address] PCP - General Family Medicine 11/26/17 [place] [facility] 01/03/24 documented as of this encounter
--- OUTSIDE RECORDS SUMMARY | 2024-05-21 14:49 | XMS_ITS | Encounter Summary ---
Author Organization [employer] Address [address] [facility] 7t [place] [address] Care Team Providers Care Cloth Finishing Range Tender Name Role Phone Shi Lancaster MD Primary Care Provide r Reason for Visit * Reason Onset Date Comments Med Refill 04/28/2024 HOPPER OPERATOR Renewal completed today 04/28/2024 Encounter Details Date Type Department Care Team (Late st Contact Info) Description 04/28/2024 Refill [facility] MEDICINE [address] [place] [address] Sosa Horan RN Chronic bilateral low back pain, unspecified whether sciatica present (Primary Dx) Social History Tobacco Use Types Packs/Day Years [...] encounter Miscellaneous Notes * Telephone Encounter - Sosa Horan RN - 04/28/2024 9:29 AM EST Pt had HOPPER OPERATOR Renewal appt today. BPI updated Pain severity score of 8, activity interference score of 4.8. Previous BPI completed 04/17/23 with pain severity score of 7.3, activity interference score of 4. documented in this encounter Plan of Treatment Upcoming Encounters Date Type Department Care Team (Late st Contact Info) Description 05/27/2024 9:00 AM EDT Clinical Support [facility] MEDICINE [address] [place] [address] Sosa Horan, RN documented as of this encounter Visit Diagnoses Diagnosis Chronic bilateral low back pain, unspecified whether sciatica present- Primary documented in this encounter Additional Health Concerns Assessment Noted Time PHQ-9 Depression Total Score: 0 08/01/19 23 11:32 AM EDT documented as of this encounter Care Teams Cloth Finishing Range Tender Relationship Specialty Start Date End Date Shi Lancaster MD [address] [place] [address] PCP - General Family Medicine 11/26/17 [facility] 01/03/24 documented as of this encounter
--- OUTSIDE RECORDS SUMMARY | 2024-05-21 14:49 | XMS_ITS | Encounter Summary ---
Author Organization [employer] Address 75 [facility] 7t [place] [address] Care Team Providers Care Creasing And Cutting Press Feeder Name Role Phone Shi Lancaster MD Primary Care Provide r Encounter Details Date Type Department Care Team (Latest Contact Info) Description 05/20/2024 Travel Social History Tobacco Use Types Packs/Day [...] Description 05/27/2024 9:00 AM EDT Clinical Support [facility] MEDICINE [address] [place] [address] Sosa Horan, RN documented as of this encounter Visit Diagnoses Not on filedocumented in this encounter Additional Health Concerns Assessment Noted Time PHQ-9 Depression Total Score: 0 08/01/19 23 11:32 AM EDT documented as of this encounter Care Teams Creasing And Cutting Press Feeder Relationship Specialty Start Date End Date Shi Lancaster MD [address] [place] [address] PCP - General Family Medicine [facility] documented as of this encounter
--- OUTSIDE RECORDS SUMMARY | 2024-05-21 14:49 | XMS_ITS | Encounter Summary ---
Author Organization [employer] Address 75 [facility] 7t [place] [address] Care Team Providers Care Soils Engineer Name Role Phone Shi Lancaster MD Primary Care Provide r Encounter Details Date Type Department Care Team (Latest Contact Info) Description 05/14/2024 11:30 AM EST Office Visit [facility] MEDICINE [address] [place] [address] Shi Lancaster MD [address] [place] [address] Primary osteoarthritis of both knees (Primary Dx); Primary hypertension; Rheumatoid arthritis involving multiple sites with positive rheumatoid factor (CMS/HCC); Sinus tachycardia Social History Tobacco Use Types Packs/Day Years [...] AM EDT documented as of this encounter Last Filed Vital Signs Vital Sign Reading Time Taken Comments Blood Pressure 115/81 05/14/2024 11:43 AM EST Pulse 125 05/14/2024 11:43 AM EST Temperature 37.1 ??C (98.7 ??F) 05/14/2024 10:[address] Respiratory Rate 20 05/14/2024 10:53 AM EST Oxygen Saturation - - Inhaled Oxygen Concentration - - Weight 144 kg (317 lb 6.4 oz) 05/14/2024 10:53 A M EST Height 177.8 cm (5' 10 ) 05/14/2024 10:53 AM EST Body Mass Index 45.54 05/14/2024 10:53 AM EST documented in this encounter Progress Notes * Shi Gage MD - 05/14/2024 11:30 AM EST SUBJECTIVE: Gómez Pelletier is a 48 y.o. year old male who presents for Follow up . Acute Concerns: Patient is a status post right knee replacement, reports he feels much better regarding his knee, but states he has a lot of pain on his neck upper back lower back and left knee, he is being followedclosely by rheumatology for his known severe rheumatoid arthritis, gout and osteoarthritis Today's patient's blood pressure and heart rate is elevated, reports he is being followed closely by cardiology and specialist is aware about this Social History Social History Narrative Not on file Patient Active Problem List Diagnosis Abnormal chest xray Erectile dysfunction Heat syncope Hypertension Hypertriglyceridemia Nonalcoholic steatohepatitis Obesity Obstructive sleep apnea syndrome Osteoarthritis of right knee Post-traumatic epilepsy (CMS/HCC) Seropositive rheumatoid arthritis (CMS/HCC) Acute deep vein thrombosis of lower limb (CMS/HCC) Chronic gout Migraine without aura and without status migrainosus, not intractable Colon cancer screening Family history of colon cancer Chronic bilateral low back pain Lumbar herniated disc Crowded teeth Dental calculus Periodontal disease Dental caries Gingival bleeding Localized gingival recession Primary osteoarthritis of both knees Preop examination Rheumatoid arthritis involving multiple sites with positive rheumatoid factor (CMS/HCC) Sinus tachycardia No family history on file. Review of Systems Constitutional: Negative. HENT: Negative. Respiratory: Negative. Cardiovascular: Negative. Musculoskeletal: Positive for arthralgias, back pain, myalgias and neck pain. OBJECTIVE: Vitals: 05/14/24 1053 05/14/24 1143 BP: (!) 153/70 115/81 BP Location: Left arm Right arm Patient Position: Sitting Sitting BP Cuff Size: Large adult Large adult Pulse: (!) 120 (!) 125 Resp: 20 Temp: 98.7 ??F (37.1 ??C) TempSrc: Oral Weight: 317 lb 6.4 oz (144 kg) Height: 5' 10 (1.778 m) Physical Exam Constitutional: Appearance: Normal appearance. Cardiovascular: Rate and Rhythm: Normal rate and regular rhythm. Pulmonary: Effort: Pulmonary effort is normal. Breath sounds: Normal breath sounds. Abdominal: General: Abdomen is flat. Palpations: Abdomen is soft. Musculoskeletal: General: Tenderness present. Right lower leg: No edema. Left lower leg: No edema. Neurological: Mental Status: He is alert. Follow Up: No follow-ups on file. Current Outpatient Medications on File Prior to Visit Medication Sig Dispense Refill Acetaminophen Extra Strength 500 MG tablet Take 2 tablets by mouth every 8 (eight) hours if needed for pain. allopurinol (Zyloprim) 100 MG tablet TAKE 2 TABLET ORALLY DAILY. TAKE WITH ALLOPURINOL 300MG TAB TOEQUAL 500MG PO DAILY allopurinol (Zyloprim) 300 MG tablet Take 1 tablet by mouth 1 (one) time each day. apixaban (Eliquis) 5 MG tablet TAKE 1 TABLET BY MOUTH TWICE A DAY 60 tablet 0 Blood Pressure Monitor kit Use to monitor blood pressure 1 kit 0 colchicine 0.6 MG tablet Take 1 tablet by mouth 1 (one) time each day. cyclobenzaprine (Flexeril) 10 MG tablet TAKE 1 TABLET BY MOUTH EVERY 8 HOURS 90 tablet 0 Diclofenac Sodium 1 % gel Apply 4 g topically if needed in the morning, at noon, in the evening, and at bedtime. gabapentin (Neurontin) 100 MG capsule Take 1 capsules by mouth twice a day hydroCHLOROthiazide (HYDRODiuril) 12.5 MG tablet TAKE 1 TABLET BY MOUTH EVERY MORNING 90 tablet 3 losartan (Cozaar) 100 MG tablet TAKE 1 TABLET BY MOUTH EVERY MORNING 90 tablet 0 naloxone (Narcan) 4 mg/0.1 mL nasal spray Administer 1 spray (4 mg) into affected nostril(s) if needed for opioid reversal. 2 each 3 oxyCODONE (Roxicodone) 5 MG immediate release tablet Take 1 tablet (5 mg) by mouth every 8 (eight) hours if needed for severe pain for up to 28 days. 84 tablet 0 pantoprazole (ProtoNix) 40 MG EC tablet TAKE 1 TABLET BY MOUTH EVERY MORINING 90 tablet 0 PHENobarbital (Luminal) 97.2 MG tablet Take 1 tablet by mouth at bed time. phenytoin ER (Dilantin) 100 MG capsule Take 2 capsules by mouth in the morning, at noon, and at bedtime. predniSONE (Deltasone) 10 MG tablet TAKE 3 TABS BY MOUTH DAILY X3 DAYS, THEN 2 TABS DAILY X3 DAYS, THEN 1 TAB DAILY X3 DAYS THEN STOP. No current facility-administered medications on file prior to visit. Problem List Items Addressed This Visit Primary osteoarthritis of both knees - Primary Continue to follow with orthopedics Hypertension Second blood pressure is normal, I advised to continue with same medications, I advised low-sodium diet and weight reduction Rheumatoid arthritis involving multiple sites with positive rheumatoid factor (CMS/HCC) Continue to follow with rheumatology I will continue with same dose of oxycodone 5 mg every 8 hours as needed for pain control Sinus tachycardia Ice Maker is aware of his sinus tachycardia and he is being followed for this documented in this encounter Miscellaneous Notes * Assessment & Plan Note - Shi Gage MD - 05/14/2024 4:32 PM EST Associated Problem(s): Rheumatoid arthritis involving multiple sites with positive rheumatoid factor (CMS/HCC) Continue to follow with rheumatology I will continue with same dose of oxycodone 5 mg every 8 hours as needed for pain control * Assessment & Plan Note - Shi Gage MD - 05/14/2024 4:31 PM EST Associated Problem(s): Primary osteoarthritis of both knees Continue to follow with orthopedics * Assessment & Plan Note - Shi Gage MD - 05/14/2024 4:31 PM EST Associated Problem(s): Sinus tachycardia Ice Maker is aware of his sinus tachycardia and he is being followed for this * Assessment & Plan Note - Shi Gage MD - 05/14/2024 4:30 PM EST Associated Problem(s): Hypertension Second blood pressure is normal, I advised to continue with same medications, I advised low-sodium diet and weight reduction documented in this encounter Plan of Treatment Upcoming Encounters Date Type Department Care Team (Late st Contact Info) Description 05/27/2024 9:00 AM EDT Clinical Support [facility] MEDICINE [address] [place] [address] Sosa Horan, RN documented as of this encounter Visit Diagnoses Diagnosis Primary osteoarthritis of both knees- Primary Primary hypertension Unspecified essential hypertension Rheumatoid arthritis involving multiple sites with positive rheumatoid factor (CMS/HCC) Sinus tachycardia Other specified cardiac dysrhythmias documented in this encounter Additional Health Concerns Assessment Noted Time PHQ-9 Depression Total Score: 0 08/01/19 23 11:32 AM EDT documented as of this encounter Care Teams Soils Engineer Relationship Specialty Start Date End Date Shi Lancaster MD [address] [place] [address] PCP - General Family Medicine 11/26/17 Lakshmi JOSEPH 01/03/24 documented as of this encounter
--- OUTSIDE RECORDS SUMMARY | 2024-05-21 14:49 | XMS_ITS | Encounter Summary ---
Author Organization [employer] Address [address] [place] [address] [address] [address] Care Team Providers Care Hand Crocheter Name Role Phone Shi Lancaster MD Primary Care Provide r Reason for Visit * Reason Onset Date Comments Med Refill 09/16/2022 Encounter Details Date Type Department Care Team (Late st Contact Info) Description 09/16/2022 Telephone [facility] MEDICINE [address] [place] [address] Shi Lancaster MD [address] [place] [address] Med Refill Social History Tobacco Use Types Packs/Day Years [...] encounter Miscellaneous Notes * Telephone Encounter - Kelly Solis - 09/16/2022 10:58 AM EDT Tc from pt requesting medication refill on oxyCODONE (Roxicodone) 5 MG immediate release tablet documented in this encounter Plan of Treatment Upcoming Encounters Date Type Department Care Team (Late st Contact Info) Description 05/27/2024 9:00 AM EDT Clinical Support [facility] MEDICINE [address] [place] [address] Sosa Horan RN documented as of this encounter Visit Diagnoses Not on filedocumented in this encounter Additional Health Concerns Assessment Noted Time PHQ-9 Depression Total Score: 0 08/01/19 23 11:32 AM EDT documented as of this encounter Care Teams Hand Crocheter Relationship Specialty Start Date End Date Shi Lancaster MD [address] [facility] [place] [address] PCP - General Family Medicine 11/26/17 Lakshmi JOSEPH 01/03/24 documented as of this encounter
--- OUTSIDE RECORDS SUMMARY | 2024-05-21 14:49 | XMS_ITS | Encounter Summary ---
Author Organization [employer] Address 75 [facility] 7t [place] [address] Care Team Providers Care Household Refrigeration Mechanic Name Role Phone Shi Lancaster MD Primary Care Provide r Reason for Visit * Reason Comments MACHINE BENDER Renewal MACHINE BENDER Renewal Encounter Details Date Type Department Care Team (Latest Contact Info) Description 04/28/2024 9:30 AM EST Clinical Support [facility] [address] [place] [address] Sosa Horan RN Chronic bilateral low back [...] AM EDT documented as of this encounter Progress Notes * Sosa Horan RN - 04/28/2024 9:30 AM EST S: Pt here for MACHINE BENDER Renewal Visit, translation provided by chinese speaking staff member Quentin Medina Prescribed Oxycodone 5mg Q8hr PRN. States he hasn't taken any in 4 days. When he's using it he takes between 0-3 doses a day, depending on his pain level. He said since his knee surgery in December his pain has improved from the surgery, PT and his injections. He also uses Tylenol arthritis with eff ect. Patient is also prescribed Phenobarbital 97.2mg at bedtime. Denies smoking cigarettes, ETOH use, Illicit drug use and marijuana use. Currently rates his pain an 8 and states medication is 100% effective at alleviating his pain. Current pain sites are his hands, right knee, lower back and left ankle. Pt cancelled MACHINE BENDER 04/08/24, 01/12/24 and was [facility] for chronic pain group 08/26/23. O: MACHINE BENDER Tier 1. Pt currently prescribed Oxycodone 5mg Q8hr PRN. PICTURE BOOKER verified today. Rx last filled on 04/01/24. Pill count performed. Pt has 0 pills at this time, 0 at least expected. Medication is notoverused by patient. UTOX completed. Positive for BAR & TCA, Negative for AMP, BUP, BZO, AZUCENA, FTY, MDMA, MET, MOP, MTD, OXY, PCP, THC. UTOX as expected. BPI updated, see scanned documents from this date. Pain severity score of 8, activity interference score of 4.8. Previous BPI completed 04/17/23with pain severity score of 7.3, activity interference score of 4. Narcan medication reviewed, how it's administered and when it's used. Pt stated he understood. Will update PCP with BPI scoring, requ est oxycodone refill and narcan renewal. Last PCP visit was 11/10/23, scheduled next 05/14/24. A: MACHINE BENDER Contract Renewal Visit: Chronic Opioid use related to pain. P: MACHINE BENDER contract reviewed and signed, Pt provided copy. Pt to continue taking medication only as prescribed; Next MACHINE BENDER RV appointment scheduled for 05/27/24 @ 9am, F/U sooner PRN. Appointment reminder given. Pt verbalized understanding and agreed to plan. documented in this encounter Plan of Treatment Upcoming Encounters Date Type Department Care Team (Late st Contact Info) Description 05/27/2024 9:00 AM EDT Clinical Support [address] [address] Sosa Horan, RN documented as of this encounter Procedures Procedure Name Priority Date/Time Associated Diagnosis Comments POCT BIENVENIDO-14 URINE DRUG SCREEN Routine 04/28/2024 9:36 AM EST Chronic bilateral low back pain, unspecified whether sciatica present documented in this encounter Results * POCT BIENVENIDO-14 Urine Drug Screen (04/28/2024 9:36 AM EST) Barbiturate Screen, Urine Positive TCA, Urine Positive Urine Urine specimen obtained by clean catch procedure / Unknown 04/28/2024 9:36 AM EST Narrative Sosa Horan, RN - 04/28/2024 9:36 AM EST UTOX cup Lot#[id number] Exp. 11/03/25 Internal Pass Control Shi Gage MD POINT OF CARE TEST EN TER/EDIT ORDERABLES Final Result documented in this encounter Visit Diagnoses Diagnosis Chronic bilateral low back pain, unspecified whether sciatica present- Primary documented in this encounter Additional Health Concerns Assessment Noted Time PHQ-9 Depression Total Score: 0 08/01/19 23 11:32 AM EDT documented as of this encounter Care Teams Household Refrigeration Mechanic Relationship Specialty Start Date End Date Shi Lancaster MD [address] [place] [address] PCP - General Family Medicine 11/26/17 Lakshmi JOSEPH 01/03/24 documented as of this encounter
--- OUTSIDE RECORDS SUMMARY | 2024-05-21 14:49 | XMS_ITS | Encounter Summary ---
Author Organization [employer] Address [address] [facility] 7t [place] [address] Care Team Providers Care Crucible Packer Name Role Phone Shi Lancaster MD Primary Care Provide r Reason for Visit * Reason Onset Date Comments Med Refill 02/26/2024 Encounter Details Date Type Department Care Team ([facility] st Contact Info) Description 02/26/2024 Refill [facility] MEDICINE [address] [place] [address] Shi Lancaster MD [address] [place] [address] Chronic bilateral low back pain, unspecified whether sciatica present; Seropositive rheumatoid arthritis (CMS/HCC); Primary osteoarthritis of [...] 05/27/2024 9:00 AM EDT Clinical Support [facility] MEDICINE [address] [place] [address] Sosa Horan RN documented as of this encounter Visit Diagnoses Diagnosis Chronic bilateral low back pain, unspecified whether sciatica present Seropositive rheumatoid arthritis ([facility]) Primary osteoarthritis of right knee documented in this encounter Additional Health Concerns Assessment Noted Time PHQ-9 Depression Total Score: 0 08/01/19 23 11:32 AM EDT documented as of this encounter Care Teams Crucible Packer Relationship Specialty Start Date End Date Sih Lancaster MD [address] [place] [address] PCP - General Family Medicine 11/26/17 [facility] 01/03/24 documented as of this encounter
--- OUTSIDE RECORDS SUMMARY | 2024-05-21 14:49 | XMS_ITS | Encounter Summary ---
Author Organization [employer] Address [address] [facility] [address]t [place] [address] Care Team Providers Care Ends Down Checker Name Role Phone Shi Lancaster MD Primary Care Provide r Encounter Details Date Type Department Care Team (Latest Contact Info) Description 05/14/2024 Travel Social History Tobacco Use Types Packs/Day [...] Description 05/27/2024 9:00 AM EDT Clinical Support [facility] MEDICINE [address] [place] [address] Sosa Horan, RN documented as of this encounter Visit Diagnoses Not on filedocumented in this encounter Additional Health Concerns Assessment Noted Time PHQ-9 Depression Total Score: 0 08/01/19 23 11:32 AM EDT documented as of this encounter Care Teams Ends Down Checker Relationship Specialty Start Date End Date Shi Lancaster MD [address] [place] [address] PCP - General Family Medicine [facility]/26/17 [facility] documented as of this encounter
--- OUTSIDE RECORDS SUMMARY | 2024-05-21 14:49 | XMS_ITS | Encounter Summary ---
Author Organization [facility] [facility] Address [address] [place] [address] [address] [place] [address] Care Team Providers Care Consulting Manager Name Role Phone Shi Lancaster MD Primary Care Provide r Reason for Visit * Reason Comments Med Refill Encounter Details Date Type Department Care Team (Late Contact Info) Description 06/12/2022 Refill [facility] MEDICINE [address] [place] [address] Keiry Joseph DO [address] [place] [address] Acute deep vein thrombosis (DVT) of proximal vein of lower extremity, unspecified laterality (CMS/HCC) Social History Tobacco Use Types Packs/Day Years Used Date Smoking Tobacco: Never Assessed Sex and Gender Information Value Date Recorded Sex Assigned at Male 01/14/2022 10:17 AM EDT Legal Sex Male 10:17 AM EDT Gender Identity Male 01/14/2022 10:17 AM EDT Sexual Orientation Straight 01/14/2022 10 :17 AM EDT documented as of this encounter Plan of Treatment Upcoming Encounters Date Type Department Care Team (Late Contact Info) Description 05/27/2024 9:00 AM EDT Clinical Support [facility] MEDICINE [address] [place] [address] Sosa Horan RN documented as of this encounter Visit Diagnoses Diagnosis Acute deep vein thrombosis (DVT) of proximal vein of lower extremity, unspecified laterality (CMS/HCC) documented in this encounter Care Teams Consulting Manager Relationship Specialty Start Date End Date Shi Lancaster MD [address] [place] [id number] PCP - General Family Medicine 11/26/17 Lakshmi JOSEPH 01/03/24 documented as of this encounter
--- OUTSIDE RECORDS SUMMARY | 2024-05-21 14:49 | XMS_ITS | Clinical Summary ---
Author Organization [employer] Address [address] [facility] 7[address] [place] [address] Care Team Providers Care Cut File Clerk Name Role Phone Shi Lancaster MD Primary Care Provide r Allergies Active Allergy Reactions Criticality Noted Date Comments Misc. Sulfonamide Containing Compounds 11/07/2011 Other reaction(s): RASH,HIGH BLOOD PRESSURE, TACHIC Prednisone 04/23/2021 Other reaction(s): Altered Heart Rate Sulfate 07/11/2023 Medications PHENobarbital (Luminal) 97.2 MG tablet Take 1 tablet by mouth at bed time. Active phenytoin ER (Dilantin) 100 MG capsule Take 2 capsules by mouth in the morning, at noon, and at bedtime. Active colchicine 0.6 MG tablet Take 1 tablet by mouth 1 (one) time each day. Active Diclofenac Sodium 1 % gel Apply 4 g topically if needed in the morning, at noon, in the evening, and at bedtime. Active gabapentin (Neurontin) 100 MG capsule Take 1 capsules by mouth twice a day Active predniSONE (Deltasone) 10 MG tablet TAKE 3 TABS BY MOUTH DAILY X3 DAYS, THEN 2 TABS DAILY X3 DAYS, THEN 1 TAB DAILY X3 DAYS THEN STOP. Active allopurinol (Zyloprim) 300 MG tablet Take 1 tablet by mouth 1 (one) time each day. Active allopurinol (Zyloprim) 100 MG tablet TAKE 2 TABLET ORALLY DAILY. TAKE WITH ALLOPURINOL 300MG TAB TO EQUAL 500MG PO DAILY 023 Active Blood Pressure Monitor kitIndications:Pr imary hypertension Use to monitor blood pressure 1 kit 023 Active hydroCHLOROthiazi de (HYDRODiuril) 12.5 MG tabletIndications :Primary hypertension TAKE 1 TABLET BY MOUTH EVERY MORNING 90 tablet 3 024 Active losartan (Cozaar) 100 MG tabletIndications :Primary hypertension TAKE 1 TABLET BY MOUTH EVERY MORNING 90 tablet 024 Active pantoprazole (ProtoNix) 40 MG EC tablet TAKE 1 TABLET BY MOUTH EVERY MORINING 90 tablet 025 Active cyclobenzaprine (Flexeril) 10 MG tabletIndications :Osteoarthritis of right knee, unspecified osteoarthritis type TAKE 1 TABLET BY MOUTH EVERY 8 HOURS 90 tablet 025 Active naloxone (Narcan) 4 mg/0.1 mL nasal sprayIndications: Chronic bilateral low back pain, unspecified whether sciatica present Administer 1 spray (4 mg) into affected nostril(s) if needed for opioid reversal. 2 each 3 025 Active oxyCODONE (Roxicodone) 5 MG immediate release tabletIndications :Chronic bilateral low back pain, unspecified whether sciatica present Take 1 tablet (5 mg) by mouth every 8 (eight) hours if needed for severe pain for up to 28 days. 84 tablet 025 2024 Active apixaban (Eliquis) 5 MG tabletIndications :Acute deep vein thrombosis (DVT) of proximal vein of lower extremity, unspecified laterality (CMS/HCC) TAKE 1 TABLET BY MOUTH TWICE A DAY 60 tablet 025 Active naloxone (Narcan) 4 mg/0.1 mL nasal spray Administer 0.1 mL into affected nostril(s). 021 2024 Discontinued(R eorder (will not trigger notification to Pharmacy)) Acetaminophen Extra Strength 500 MG tablet Take 2 tablets by mouth every 8 (eight) hours if needed for pain. 022 2024 Discontinued apixaban (Eliquis) 5 MG tabletIndications :Acute deep vein thrombosis (DVT) of proximal vein of lower extremity, unspecified laterality (CMS/HCC) TAKE 1 TABLET BY MOUTH TWICE A DAY 60 tablet 025 2024 Discontinued Active Problems Problem Noted Date Diagnosed Date Rheumatoid arthritis involvi ng multiple sites with positive rheumatoid factor 05/14/2024 Assessment & Plan (05/14/2024 4:32 PM EST): Continue to follow with rheumatology I will continue with same dose of oxycodone 5 mg every 8 hours as needed for pain control Sinus tachycardia 05/14/2024 Assessment & Plan (05/14/2024 4:31 PM EST): Broadloom Weaver is aware of his sinus tachycardia and he is being followed for this Preop examination 11/10/2023 Assessment & Plan (11/10/2023 1:59 PM EDT): RCRI score 0 which is a 3.9% Surgery should proceed as schedule I advise NPO before midnight for the procedure I advise to take his blood pressure medications and seizure medication with small sip of water the morning of the procedure He can stop Eliquis 3 days before surgery and resume anticoagulation postoperatively at the discretion of the surgeon. (Recommendations by hematology/oncology provider) With regards to medication management perioperatively, he is to hold Actemra injection 1 week prior to surgery and resume at least 2 weeks after on postop wound check provided reasonable wound healing with no signs of infection. (Recommendations by rheumatology) Patient will also be seen by cardiology on 11/09/2023 Primary osteoarthritis of both knees 07/11/2023 Assessment & Plan (05/14/2024 4:31 PM EST): Continue to follow with orthopedics Assessment & Plan (07/11/2023 10:27 AM EDT): Awaiting for evaluation for possible bilateral knee replacement Patient also awaiting to be evaluated for electric wheelchair Crowded teeth 04/08/2023 Dental calculus 04/08/2023 Periodontal disease 04/08/2023 Dental caries 04/08/2023 Gingival bleeding 04/08/2023 Localized gingival recession 04/08/2023 Chronic bilateral low back pain 03/07/2023 Assessment & Plan (07/11/2023 10:27 AM EDT): Patient beng follow by specialist Patient also awaiting to be evaluated for electric wheelchair Assessment & Plan (03/07/2023 12:07 PM EST): C/w pain meds as needed Patient will be evaluated for electric wheelchair Lumbar herniated disc 03/07/2023 Assessment & Plan (03/07/2023 12:10 PM EST): Patient to be evaluated for electric wheelchair Migraine without aura and wi thout status migrainosus, not intractable 10/31/2022 Colon cancer screening 10/31/2022 Family history of colon cancer 10/31/2022 Chronic gout 05/27/2022 Overview (05/27/2022): Followed by Rheumatology Assessment & Plan (07/11/2023 10:27 AM EDT): Continue to follow rheumatology Patient also awaiting to be evaluated for electric wheelchair Assessment & Plan (07/31/2022 3:38 PM EDT): Continue to follow with specialist Acute deep vein thrombosis of lower limb 022 Abnormal chest xray 02/05/2022 Erectile dysfunction 02/05/2022 Heat syncope 02/05/2022 Obstructive sleep apnea syndrome 02/05/2022 Assessment & Plan (03/07/2023 12:06 PM EST): BIPAP prescription will be generated Continue to follow with specialist Osteoarthritis of right knee 02/05/2022 Assessment & Plan (10/13/2023 11:37 AM EDT): Waiting for surgery to be schedule Contact me if anything is needed before procedure Assessment & Plan (03/07/2023 12:07 PM EST): Patient to be evaluated for electric wheelchair Seropositive rheumatoid arthritis 02/05/2022 Assessment & Plan (10/13/2023 11:38 AM EDT): Continue to follow with rheumatology C/w same percocet dose for pain patient will follow up with SURGICAL GARMENT ASSEMBLER nurse I will inquire about electric wheelchair evaluation Assessment & Plan (07/11/2023 10:27 AM EDT): Continue to follow with rheumatology Patient also awaiting to be evaluated for electric wheelchair Assessment & Plan (03/07/2023 12:08 PM EST): Patient will be evaluated for electric wheelchair Assessment & Plan (07/31/2022 3:37 PM EDT): Continue to follow with specialist Hypertriglyceridemia 10/14/2016 Nonalcoholic steatohepatitis 10/14/2016 Post-traumatic epilepsy 08/17/2012 Hypertension 11/25/2011 Assessment & Plan (05/14/2024 4:30 PM EST): Second blood pressure is normal, I advised to continue with same medications, I advised low-sodium diet and weight reduction Assessment & Plan (11/10/2023 1:54 PM EDT): Today blood pressure is slightly elevated, patient reports his blood pressure has being with in normal limits at home, I advise to monitor BP at home and bring with him his log on next appointment, I advise low Na diet and weight reduction, I advise tot take his medications every day without missing any dose Assessment & Plan (10/13/2023 11:36 AM EDT): Stable c/w same medications and interventions Assessment & Plan (07/11/2023 10:25 AM EDT): - Aerobic exercise to reduce BP. Initial goal of 30 min walk 3-5x/week. Increase as tolerated. - low-sodium diet (goal: <2g/day) and heart healthy diet such as DASH to reduce BP and prevent ASCVD. - Home BP monitoring 1-2 x day with goal of <140/90. - Seek immediate medical attention for chest pain, palpitations, SOB, syncope, or sudden changes in mental status. - Do not change or discontinue current prescriptions without first consulting health care provider Assessment & Plan (03/07/2023 12:07 PM EST): - Aerobic exercise to reduce BP. Initial goal of 30 min walk 3-5x/week. Increase as tolerated. - low-sodium diet (goal: <2g/day) and heart healthy diet such as DASH to reduce BP and prevent ASCVD. - Home BP monitoring 1-2 x day with goal of <140/90. - Seek immediate medical attention for chest pain, palpitations, SOB, syncope, or sudden changes in mental status. - Do not change or discontinue current prescriptions without first consulting health care provider Assessment & Plan (07/31/2022 3:37 PM EDT): Maintenance: BMP: recent - Aerobic exercise to reduce BP. Initial goal of 30 min walk 3-5x/week. Increase as tolerated. - low-sodium diet (goal: <2g/day) and heart healthy diet such as DASH to reduce BP and prevent ASCVD. - Home BP monitoring 1-2 x day with goal of <140/90. - Seek immediate medical attention for chest pain, palpitations, SOB, syncope, or sudden changes in mental status. -I will start him on losartan 50mg daily f/u in 2 weeks with nurse for BP check then in 3 months with me - Do not change or discontinue current prescriptions without first consulting health care provider Obesity 11/25/2011 Encounters Date Type Department Care Team Description 05/20/2024 Travel 05/14/2024 11:30 AM EST Office Visit [address] [address] Shi Lancaster MD Primary osteoarthritis of both knees (Primary Dx); Primary hypertension; Rheumatoid arthritis involving multiple sites with positive rheumatoid factor ([facility]); Sinus tachycardia 05/14/2024 Travel 05/07/2024 Travel 04/30/2024 Patient Outreach [address] [address] Shi Lancaster MD Pre-visit Planning (SDOH screening negative and tobacco screening negative) 04/29/[address] [address] Shi Lancaster MD Acute deep vein thrombosis (DVT) of proximal vein of lower extremity, unspecified laterality (CMS/HCC) 04/28/2024 9:30 AM EST Clinical Support [address] [address] Sosa Horan RN Chronic bilateral low back pain, unspecified whether sciatica present (Primary Dx) 04/28/2024 Refill [facility] [address] [facility] [place] [address] Sosa Horan RN Chronic bilateral low back pain, unspecified whether sciatica present (Primary Dx) 04/28/2024 Travel 04/28/2024 Telephone [facility] [address] [facility] [place] [address] Sosa Horan RN Recommend SURGICAL GARMENT ASSEMBLER Tier 1 04/21/2024 Travel 04/18/2024 Refill [facility] [address] [place] [address] Shi Lancaster MD Osteoarthritis of right knee, unspecified osteoarthritis type 04/07/2024 Telephone [facility] [address] [place] [address] Shi Lancaster MD Appointment Request 04/05/2024 Refill [facility] [address] [place] [address] Shi Lancaster MD 03/31/2024 Refill [facility] [address] [place] [address] Shi Lancaster MD Chronic bilateral low back pain, unspecified whether sciatica present; Seropositive rheumatoid arthritis ([facility]/HCC); Primary osteoarthritis of right knee 03/22/2024 Refill [facility] [address] [place] [address] Shi Lancaster MD Acute deep vein thrombosis (DVT) of proximal vein of lower extremity, unspecified laterality (CMS/HCC) 03/19/2024 Refill [facility] [address] [place] [address] Shi Lancaster MD Acute deep vein thrombosis (DVT) of proximal vein of lower extremity, unspecified laterality (CMS/HCC) 02/29/2024 Refill [facility] [address] [place] [address] Shi Lancaster MD Primary hypertension 02/29/2024 Refill [facility] [address] [place] [address] Shi Lancaster MD Primary hypertension 02/26/2024 Refill [facility] [address] [place] [address] Shi Lancatser MD Chronic bilateral low back pain, unspecified whether sciatica present; Seropositive rheumatoid arthritis (CMS/HCC); Primary osteoarthritis of right knee 02/26/2024 Refill [facility] [address] [place] [address] Shi Lancaster MD Chronic bilateral low back pain, unspecified whether sciatica present (Primary Dx); Seropositive rheumatoid arthritis (CMS/HCC); Primary osteoarthritis of right knee from Last 3 Months Immunizations Name Administration Dates Next Due Hep A, Adult 08/17/2012,12/06/2011 Hep B, adult 08/17/2012,01/07/2012,12/06/2011 Influenza Injectable Quadriv alant Preservative Free IIV4 MDCK 01/29/2021,04/03/2020 Influenza injectable quadriv alent IIV4 with preservative 01/29/2017 Influenza injectable quadriv alent preservative free 12/20/2022 Influenza, Split (incl. haydee fied surface antigen) 04/06/2013,01/28/2012,11/25/2011 Moderna Covid-19 Vaccine 12+ 05/18/2021,06/29/19,05/31/2020 Pfizer Covid-19 Vaccine 12+ 03/07/2023 Pfizer Covid-19 Vaccine 12+ Bivalent 12/19/2021 Tdap 03/30/2012 Social History Tobacco Use Types Packs/Day Years Used Date Smoking Tobacco: Former Cigarettes Passive Smoke Exposure: Never Smokeless Tobacco: Never Tobacco Cessation:Counseling Given: Not Answered Alcohol Use Standard Drinks/Week Comments Never 0 [...] Orientation Straight 01/14/2022 10 :17 AM EDT Last Filed Vital Signs Vital Sign Reading Time Taken Comments Blood Pressure 115/81 05/14/2024 11:43 AM EST Pulse 125 05/14/2024 11:43 AM EST Temperature 37.1 ??C (98.7 ??F) 05/14/2024 10:[address] Respiratory Rate 20 05/14/2024 10:53 AM EST Oxygen Saturation 97% 11/10/2023 1:04 PM EDT Inhaled Oxygen Concentration - - Weight 144 kg (317 lb 6.4 oz) 05/14/2024 10:53 A M EST Height 177.8 cm (5' 10 ) 05/14/2024 10:53 AM EST Body Mass Index 45.54 05/14/2024 10:53 AM EST Plan of Treatment Upcoming Encounters Date Type Department Care Team (Late st Contact Info) Description 05/27/2024 9:00 AM EDT Clinical Support [facility] [address] [place] [phone] Sosa Horan, RN Health Maintenance Due Date Last Done Comments CT Colonography 1975 Colonoscopy 1975 Colorectal Cancer Screening 1975 FIT DNA/Cologuard 1975 FIT 1975 FOBT 1975 HIV Screening 1975 Sigmoidoscopy 1975 Alcohol/Substance Use Screening 1987 Family Planning (PISQ) 10/19/1990 DTaP/Tdap/Td Vaccines (2 - Td or Tdap) 03/30/2022 03/30/2012 Depression Screening 08/01/2023 07/31/2022, 08/01/19 Dental Oral Exam 10/08/2023 04/08/2023, , 06/10/2016 Dental Prophylaxis 10/08/2023 04/08/2023, 0 04/14/2019, 09/30/2018 COVID-19 Vaccine ( season) 2023 03/07/2023, 12/19/2021, 05/18/2021, Additional history exists Dental X-Ray: Bitewings 04/09/2024 04/08/19 24, 07/29/2018, 06/10/2016 Diabetes: Hemoglobin A1C 11/09/2024 024, 11/09/2020, 02/04/2020, Additional history exists Tobacco Screening 11/09/2024 11/10/2023 SDOH Screening 04/30/2025 04/30/2024 Zoster Vaccines (1 of 2) 10/19/2025 Dental X-Ray: Full Mouth 04/09/2026 04/08/2023, 05/16 Lipid Panel 09/27/2026 09/27/2021, 03/17, 03/28/2021, Additional history exists RSV Patients and Patients Aged 60 years or older (1 - 1-dose 75+ series) 10/19/2050 Hepatitis A Vaccines Completed 08/17/2012, 12/06/19 12 Hepatitis B Vaccines Completed 08/17/2012, 01/07/2012, 12/06/2011 Hepatitis C Screening Completed 05/14/2023 Influenza Vaccine Completed 01/01/2024, , 01/29/2021, Additional history exists HIB Vaccines Aged Out No longer eligi ble based on patient's age to complete this topic HPV Vaccines Aged Out No longer eligi ble based on patient's age to complete this topic IPV Vaccines Aged Out No longer eligi ble based on patient's age to complete this topic Meningococcal Vaccine Aged Out No saida khadar eligible based on patient's age to complete this topic Pneumococcal Vaccine: Pediatrics (0 to 5 Years) and At-Risk Patients (6 to 49) Years) Aged Out No longer eligible based on patient's age to complete this topic RSV under 20 months Aged Out No longe r eligible based on patient's age to complete this topic Rotavirus Vaccines Aged Out No longer eligible based on patient's age to complete this topic Procedures Procedure Name Priority Date/Time Associated Diagnosis Comments POCT BIENVENIDO-14 URINE DRUG SCREEN Routine 04/28/2024 9:36 AM EST Chronic bilateral low back pain, unspecified whether sciatica present POCT GLYCATED HEMOGLOBIN, TOTAL Routine 11/10/2023 1:20 PM EDT Preop examination HEPATITIS PANEL, GENERAL Routine 05/14/2023 2:15 PM EST PROPHYLAXIS - ADULT Routine 04/08/2023 8 :00 AM EST Crowded teeth Dental calculus Periodontal disease Gingival bleeding INTRAORAL - COMPLETE SERIES OF RADIOGRAPHIC IMAGES Routine 04/08/2023 8:00 AM EST Crowded teeth Dental calculus Periodontal disease Dental caries Gingival bleeding Localized gingival recession PERIODIC ORAL EVALUATION - ESTABLISHED PATIENT Routine 04/08/2023 8:00 AM EST ZZZ HISTORICAL LIPID PANEL WITH REFLEX TO DIRECT LDL Routine 09/27/2021 3:08 PM EDT from Last 3 Months or Most Recently Relevant to Health Maintenance Results * POCT BIENVENIDO-14 Urine Drug Screen (04/28/2024 9:36 AM EST) Barbiturate Screen, Urine Positive TCA, Urine Positive Urine Urine specimen obtained by clean catch procedure / Unknown 04/28/2024 9:36 AM EST Sosa Bergeron RN - 04/28/2024 9:36 AM EST UTOX cup Lot#[id number] Exp. 11/03/25 Internal Pass Control us Shi Gage MD POINT OF CARE TEST EN TER/EDIT ORDERABLES Final Result * POCT HGB A1C (11/10/2023 1:20 PM EDT) Pathologist [facility] Hemoglobin A1C 5.9 4.0 - 6.0 % QC Media Lot # [id number] Lot# Expiration Date Blood 11/10/2023 1:20 PM EDT us Shi Gage MD POINT OF CARE TEST EN TER/EDIT ORDERABLES Final Result * Hepatitis Panel, General (05/14/2023 2:15 PM EST) Pathologist [facility] Hepatitis A IgM Nonreactive Nonreactive [facility] Comment:IgM antibodies to NUNEZ V not detected; does not exclude earlyacute or recovered HAV infection. ~Hepatitis B Surface Antibody NONREACTIVE Nonreactive [facility] Comment:Nonreactive: < 8.00 mIU/mL Hepatitis B Core Antibody Nonreactive Nonreactive [facility] Hepatitis C Antibody Nonreactive Nonreactive [facility] Comment:Antibodies to HCV no t detected; does not exclude early acuteHCV infection. Hepatitis B Surface Ag Negative Negative [facility] 05/14/2023 2:15 PM EST 05/14/2023 2:15 PM EST us Generic External Data Provider LAB BLOOD ORDERAB LES Final Result [facility] [address] [place] [phone] * LIPID PANEL WITH REFLEX TO DIRECT LDL (09/27/2021 3:08 PM EDT) Cholesterol 194 mg/dL [facility] Comment: Desirable Cholesterol: ?less than 200 mg/dL Borderline High Cholesterol: ??200-239 mg/dL High Cholesterol: ? greater than 239 mg/dL HDL Cholesterol 37 mg/dL [facility] Comment: Desirable HDL: ??greater than 40 mg/dL ?? Note: This HDL assay may give artificially ? low results in patients with liver disease. LDL Cholesterol Calculated 115 mg/dl [facility] Comment: Desirable LDL: ? less than 100 mg/dL Near Optimal/Above Optimal LDL: ??110-129 mg/dL Borderline High LDL: ? 130-159 mg/dL High LDL: ?160-189 mg/dL Very High LDL: ? greater than or equal to ?190 mg/dL Triglycerides 213 mg/dL [facility] Comment: Desirable Triglyceride: ? less than 150 mg/dL Borderline High Triglyceride ??150-199 mg/dL High Triglyceride: ?200-499 mg/dL Very High Triglyceride: ? greater than or equal to ? 5OO mg/dL Alanine Aminotransferase 27 0 - 40 U/L [facility] Albumin Level 4.4 3.5 - 5.0 g/dL [facility] Alkaline Phosphatase 85 39 - 117 U/L [facility] Anion Gap 13 12 - 20 [facility] Aspartate Amino Transferase 18 5 - 37 U/L [facility] Bilirubin Total 0.4 0.0 - 1.0 mg/dL [facility] Blood Urea Nitrogen 10 9 - 16 mg/dL [facility] Calcium 9.5 8.4 - 10.2 mg/dL [facility] Carbon Dioxide 28 22 - 29 mmol/L [facility] Chloride 102 96 - 108 mmol/L [facility] Creatinine, Serum 0.92 0.5 - 1.4 mg/dL [facility] Estimated Glomerular Filt Rate >60 [facility] Comment: NOTE: ??For -[place] individuals, multiply the result ?by 210. ?? Chronic Kidney Disease: ??Estimated GFR < 60 mL/min/1.73m2 Severe Kidney Disease: ??Estimated GFR < 15 mL/min/1.73m2 Glucose Random 105 60 - 115 mg/dL [facility] Potassium 4.0 3.3 - 5.1 mmol/L [facility] Sodium 139 135 - 145 mmol/L [facility] Total Protein 7.3 6.5 - 8.0 g/dL [facility] C Reactive Protein 0.05 < or = 0.50 mg/dL [facility] 09/27/2021 3:08 PM EDT us Historical Provider HISTORICAL/NON ORDERABLE LABS Final Result Performing Organization Address City/State/[facility] Co de Phone Number [facility] [address] from Last 3 Months or Most Recently Relevant to Health Maintenance Insurance [facility] C3 DENTAL-[facility] MEDICAID STAND ADULT Care Teams Cut File Clerk Relationship Specialty Start Date End Date Shi Lancaster MD [address] [place] [id number] PCP - General Family Medicine 11/26/17 [facility] 01/03/24
--- OUTSIDE RECORDS SUMMARY | 2024-05-21 14:49 | XMS_ITS | Encounter Summary ---
Author Organization [employer] Address [address] [facility] [address] [place] [address] Care Team Providers Care Registration Coordinator Name Role Phone Shi Lancaster MD Primary Care Provide r Reason for Visit * Reason Comments Pre-visit Planning SDOH screening negat benito and tobacco screening negative Encounter Details Date Type Department Care Team ([facility] Contact Info) Description 04/30/2024 Patient Outreach [facility] [address] [place] [address] Shi Lancaster MD [address] [place] [address] Pre-visit Planning (SDOH screening negative and tobacco screening negative) Social History Tobacco Use Types Packs/Day Years [...] as of this encounter Progress Notes * Reta Randolph - 04/30/2024 9:08 AM EST CC Reta placed successful outbound call to patient for pre-visit planning. Patient name and confirmed. Patient confirms appt date and time, and has transportation. Biggest concern for appointment at this time is none Patient advised to bring to appointment a photo id and insurance card. Appropriate screenings completed in anticipation of appointment. documented in this encounter Plan of Treatment Upcoming Encounters Date Type Department Care Team (Late st Contact Info) Description 05/27/2024 9:00 AM EDT Clinical Support [facility] [address] [place] [address] Sosa Horan RN documented as of this encounter Visit Diagnoses Not on filedocumented in this encounter Additional Health Concerns Assessment Noted Time PHQ-9 Depression Total Score: 0 08/01/19 23 11:32 AM EDT documented as of this encounter Care Teams Registration Coordinator Relationship Specialty Start Date End Date Shi Lancaster MD [address] [place] [address] PCP - General Family Medicine [facility] documented as of this encounter
--- OUTSIDE RECORDS SUMMARY | 2024-05-21 14:49 | XMS_ITS | Clinical Summary ---
Author Organization [facility] Address [id number] [place] [id number] Care Team Providers Care Textile Dyer Name Role Phone Shi Lancaster MD Primary Care Provide r Immunizations Name Administration Dates Next Due Moderna SARS-CoV-2 COVID-19, mRNA, LNP-S, preservative free 05/18/2021,06/28/2020,05/31/2020 Surgical History Surgery Date Site/Laterality Comments BACK SURGERY N/A PROCEDURE: HISTORICAL BACK SURGERY; COMMENT: Lumbar decomp - 2018, left L4-L5 minimally invasive diskectomy - 2016, Lumbar laminectomy - 2015 Medical History Medical History Date Comments Chronic tophaceous gout DX:Chron ic tophaceous gout Right leg DVT (CMS/HCC) DX:Right leg DVT (HCC) Rheumatoid arthritis (CMS/HCC) D X:Rheumatoid arthritis (HCC) Supraventricular tachycardia (CMS/HCC) DX:Supraventricular tachycardia (HCC) Lumbar radiculopathy DX:Lumbar r adiculopathy HTN (hypertension) DX:HTN (hyper tension) Sleep apnea DX:Sleep apnea History of epilepsy DX:History o f epilepsy Family History Medical History Relation Name Comments Breast cancer Aunt Colon cancer Mother Relation Name Status Comments Aunt Mother Social History Tobacco Use Types Packs/Day Years Used Date Smoking Tobacco: Never Smokeless Tobacco: Never Alcohol Use Standard Drinks/Week Comments Never 0 (1 standard drink = 0.6 oz pur e alcohol) Sex and Gender Information Value Date Recorded Sex Assigned at Not on file Legal Sex Male 7:05 AM EST Gender Identity Not on file Sexual Orientation Not on file Obstetrics History Plan of Treatment Health Maintenance Due Date Last Done Comments DTaP,Tdap,and Td Vaccines (2 - Td or Tdap) 03/30/2022 03/30/2012 COVID-19 Vaccine ( season) 2023 03/07/2023, 05/18/2021, 06/28/2020, Additional history exists Influenza Vaccine (#1) 2023 , 01/29/2021, 04/03/2020, Additional history exists Hepatitis A Vaccines Aged Out 08/17/2012, 12/06/19 12 No longer eligible based on patient's age to complete this topic Hepatitis B Vaccines Completed 08/17/2012, 01/07/2012, 12/06/2011 HIB Vaccines Aged Out No longer eligi ble based on patient's age to complete this topic HPV Vaccines Aged Out No longer eligi ble based on patient's age to complete this topic IPV Vaccines Aged Out No longer eligi ble based on patient's age to complete this topic MMR Vaccines Aged Out No longer eligi ble based on patient's age to complete this topic Meningococcal ACWY Vaccine Aged Out N o longer eligible based on patient's age to complete this topic Meningococcal B Vacine Aged Out No lo nger eligible based on patient's age to complete this topic Pneumococcal Vaccine: Pediatrics (0 to 5 Years) and At-Risk Patients (6 to 64 Years) Aged Out No longer eligible based on patient's age to complete this topic RSV Immunization Patients Under 20 months Aged Out No longer eligible based on patient's age to complete this topic Varicella Vaccines Aged Out No longer eligible based on patient's age to complete this topic Advance Directives Documents on File Type Date Recorded Patient Mounting Inspector Expl anation Health Care Decision (hx) 10/17/2015 AD HERNANDEZ DIRECTIVE Health Care Decision (hx) 10/17/2015 AD HERNANDEZ DIRECTIVE Care Teams Textile Dyer Relationship Specialty Start Date End Date Shi Lancaster MD [address] [place] [phone] PCP - General 03/11/23
--- OUTSIDE RECORDS SUMMARY | 2024-05-21 14:49 | XMS_ITS | Encounter Summary ---
Author Organization [employer] Address [address] [facility] 7t [place] [address] Care Team Providers Care Russian History Professor Name Role Phone Shi Lancaster MD Primary Care Provide r Encounter Details Date Type Department Care Team (Latest Contact Info) Description 04/21/2024 Travel Social History Tobacco Use Types Packs/Day [...] Description 05/27/2024 9:00 AM EDT Clinical Support [facility] MEDICINE [address] [place] [address] Sosa Horan RN documented as of this encounter Visit Diagnoses Not on filedocumented in this encounter Additional Health Concerns Assessment Noted Time PHQ-9 Depression Total Score: 0 08/01/19 23 11:32 AM EDT documented as of this encounter Care Teams Russian History Professor Relationship Specialty Start Date End Date Shi Lancaster MD [address] [place] [address] PCP - General Family Medicine 11/26/17 [facility] 01/[facility] documented as of this encounter
--- OUTSIDE RECORDS SUMMARY | 2024-05-21 14:49 | XMS_ITS | Encounter Summary ---
Author Organization [employer] Address [address] [facility] 7t [place] [address] Care Team Providers Care Product Engineering Manager Name Role Phone Shi Lancaster MD Primary Care Provide r Reason for Visit * Reason Onset Date Comments Med Refill 03/22/2024 Encounter Details Date Type Department Care Team ([facility] st Contact Info) Description 03/22/2024 Refill [facility] MEDICINE [address] [place] [address] Shi Lancaster MD [address] [place] [address] Acute deep vein thrombosis (DVT) of proximal [...] Description 05/27/2024 9:00 AM EDT Clinical Support [facility] MEDICINE [address] [place] [phone] Sosa Horan RN documented as of this encounter Visit Diagnoses Diagnosis Acute deep vein thrombosis (DVT) of proximal vein of lower extremity, unspecified laterality (CMS/HCC) documented in this encounter Additional Health Concerns Assessment Noted Time PHQ-9 Depression Total Score: 0 08/01/19 23 11:32 AM EDT documented as of this encounter Care Teams Product Engineering Manager Relationship Specialty Start Date End Date Shi Lancaster MD [address] [place] [id number] PCP - General Family Medicine 11/26/17 [facility] 01/03/24 documented as of this encounter
--- OUTSIDE RECORDS SUMMARY | 2024-05-21 14:49 | XMS_ITS | Encounter Summary ---
Author Organization [facility] Address [address] [facility] 7t [place] [address] Care Team Providers Care Personal Loan Specialist Name Role Phone Shi Lancaster MD Primary Care Provide r Reason for Visit * Reason Onset Date Comments Med Refill 02/29/2024 Encounter Details Date Type Department Care Team ([facility] st Contact Info) Description 02/29/2024 Refill [facility] MED[facility]INE [address] [place] [address] Shi Lancaster MD [address] [place] [address] Primary hypertension Social History Tobacco Use Types Packs/Day Years [...] Description 05/27/2024 9:00 AM EDT Clinical Support [facility] MED[facility]INE [address] [place] [address] Sosa Horan RN documented as of this encounter Visit Diagnoses Diagnosis Primary hypertension Unspecified essential hypertension documented in this encounter Additional Health Concerns Assessment Noted Time PHQ-9 Depression Total Score: 0 08/01/19 23 11:32 AM EDT documented as of this encounter Care Teams Personal Loan Specialist Relationship Specialty Start Date End Date Shi Lancaster MD [address] [place] [address] PCP - General Family Medicine 11/26/17 [facility] 01/03/24 documented as of this encounter
--- OUTSIDE RECORDS SUMMARY | 2024-05-21 14:49 | XMS_ITS | Encounter Summary ---
Author Organization [employer] Address [address] [facility] 7t [place] [address] Care Team Providers Care Signal Technician Name Role Phone Shi Lancaster MD Primary Care Provide r Encounter Details Date Type Department Care Team (Latest Contact Info) Description 04/28/2024 Travel Social History Tobacco Use Types Packs/Day [...] Description 05/27/2024 9:00 AM EDT Clinical Support [facility] MEDICINE [address] [place] [address] Sosa Horan RN documented as of this encounter Visit Diagnoses Not on filedocumented in this encounter Additional Health Concerns Assessment Noted Time PHQ-9 Depression Total Score: 0 08/01/19 23 11:32 AM EDT documented as of this encounter Care Teams Signal Technician Relationship Specialty Start Date End Date Shi Lancaster MD 230 [place] [address] PCP - General Family Medicine 11/26/17 [facility] documented as of this encounter
--- OUTSIDE RECORDS SUMMARY | 2024-05-21 14:49 | XMS_ITS | Encounter Summary ---
Author Organization [employer] Address [address] [facility] 7t [place] [address] Care Team Providers Care Owner Professional Engineer Name Role Phone Shi Lancaster MD Primary Care Provide r Reason for Visit * Reason Onset Date Comments Med Refill 01/11/2024 Encounter Details Date Type Department Care Team ([facility] st Contact Info) Description 01/11/2024 Refill [facility] MEDICINE [address] [place] [address] Shi Lancaster MD [address] [place] [address] Primary hypertension Social History Tobacco Use Types [...] Description 05/27/2024 9:00 AM EDT Clinical Support [facility] MEDICINE [address] [place] [address] Sosa Horan RN documented as of this encounter Visit Diagnoses Diagnosis Primary hypertension Unspecified essential hypertension documented in this encounter Additional Health Concerns Assessment Noted Time PHQ-9 Depression Total Score: 0 08/01/19 23 11:32 AM EDT documented as of this encounter Care Teams Owner Professional Engineer Relationship Specialty Start Date End Date Shi Lancaster MD [address] [place] [address] PCP - General Family Medicine 11/26/17 [facility] 01/03/24 documented as of this encounter
--- OUTSIDE RECORDS SUMMARY | 2024-05-21 14:49 | XMS_ITS | Encounter Summary ---
Author Organization [facility] Address [address] [place] [address] 7t [place] [address] Care Team Providers Care Intake Coordinator Name Role Phone Shi Lancaster MD Primary Care Provide r Encounter Details Date Type Department Care Team (Latest Contact Info) Description 09/30/[address] [facility] CONVERSION[facility] Dental, Provider, DDS Social History Tobacco Use Types Packs/Day Years [...] Description 05/27/2024 9:00 AM EDT Clinical Support [facility] MEDICINE [address] [place] [address] Sosa Horan RN documented as of this encounter Visit Diagnoses Not on filedocumented in this encounter Care Teams Intake Coordinator Relationship Specialty Start Date End Date Shi Lancaster MD [address] [place] [address] PCP - General Family Medicine 11/26/17 [facility] 01/03/24 documented as of this encounter
--- OUTSIDE RECORDS SUMMARY | 2024-05-21 14:49 | XMS_ITS | Encounter Summary ---
Author Organization [employer] Address [address] [facility] 7t [place] [address] Care Team Providers Care Business Insurance Agent Name Role Phone Shi Lancaster MD Primary Care Provide r Reason for Visit * Reason Onset Date Comments Appointment Request 06/26/2023 Encounter Details Date Type Department Care Team ([facility] st Contact Info) Description 06/26/2023 Telephone [facility] MEDICINE [address] [place], [place] [phone] Shi Lancaster MD [address] [place], [place] [phone] Appointment Request Social History Tobacco Use Types [...] encounter Miscellaneous Notes * Telephone Encounter - Boubacar Aburto - 06/26/2023 2:36 PM EDT Tc from patient calling to cancel appt for 06/26 and would like a call back to reschedule appt as soon as possible documented in this encounter Plan of Treatment Upcoming Encounters Date Type Department Care Team (Late st Contact Info) Description 05/27/2024 9:00 AM EDT Clinical Support [facility] MEDICINE [address] [place] [address] Sosa Horan, RN documented as of this encounter Visit Diagnoses Not on filedocumented in this encounter Additional Health Concerns Assessment Noted Time PHQ-9 Depression Total Score: 0 08/01/19 23 11:32 AM EDT documented as of this encounter Care Teams Business Insurance Agent Relationship Specialty Start Date End Date Shi Lancaster MD [address] [place] [address] PCP - General Family Medicine 11/26/17 [facility] 01/03/24 documented as of this encounter
--- OUTSIDE RECORDS SUMMARY | 2024-05-21 14:49 | XMS_ITS | Encounter Summary ---
Author Organization [employer] Address [address] [facility] 7t [place] [address] Care Team Providers Care Space And Missile Operations Spacelift Name Role Phone Shi Lancaster MD Primary Care Provide r Reason for Visit * Reason Onset Date Comments Recommend BREAKER OFF Tier 1 04/28/2024 Encounter Details Date Type Department Care Team ([facility] st Contact Info) Description 04/28/2024 Telephone [facility] MEDICINE [address] [place] [address] Sosa Horan, FIONA Recommend BREAKER OFF Tier 1 Social History Tobacco Use Types Packs/Day Years [...] Encounter - Sosa Horan RN - 04/28/2024 7:33 AM EST What BREAKER OFF Tier would you like this patient to be? I recommend Tier 1, please let me know if you agree or would rather patient be in another BREAKER OFF Tier. Tier 1 = HIGH RISK, Monthly BREAKER OFF visits Tier 2 = MODerate RISK, Q3 Month visits Tier 3 = LOW RISK = Q4-6 month visits documented in this encounter Plan of Treatment Upcoming Encounters Date Type Department Care Team (Late st Contact Info) Description 05/27/2024 9:00 AM EDT Clinical Support [facility] MEDICINE [address] [place] [address] Sosa Horan RN documented as of this encounter Visit Diagnoses Not on filedocumented in this encounter Additional Health Concerns Assessment Noted Time PHQ-9 Depression Total Score: 0 08/01/19 23 11:32 AM EDT documented as of this encounter Care Teams Space And Missile Operations Spacelift Relationship Specialty Start Date End Date Shi Lancaster MD [address] [place] [address] PCP - General Family Medicine 11/26/17 [facility] 01/03/24 documented as of this encounter
--- OUTSIDE RECORDS SUMMARY | 2024-05-21 14:49 | XMS_ITS | Encounter Summary ---
Author Organization [employer] Address [address] [facility] 7t [place] [address] Care Team Providers Care Property Field Inspector Name Role Phone Shi Lancaster MD Primary Care Provide r Reason for Visit * Reason Onset Date Comments Med Refill 01/03/2024 Postop pain 01/03/2024 Encounter Details Date Type Department Care Team ([facility] st Contact Info) Description 01/03/2024 Refill [facility] MEDICINE [address] [place] [address] Shi Lancaster MD [address] [place] [address] Seropositive rheumatoid arthritis (CMS/HCC); Primary osteoarthritis of [...] Telephone Encounter - Sosa Horan RN - 01/05/2024 11:38 AM EDT TC to patient, interpretation provided by [facility] medical device sales representative, pt had his R TKA procedure done 12/31/23. Reviewed with patient to speak with his surgeon for his post op pain medication needsand to call PCP once surgeon is no longer prescribing his pain medication. Pt stated he will. documented in this encounter Plan of Treatment Upcoming Encounters Date Type Department Care Team (Late st Contact Info) Description 05/27/2024 9:00 AM EDT Clinical Support [facility] MEDICINE [address] [place] [address] Sosa Horan, RN documented as of this encounter Visit Diagnoses Diagnosis Seropositive rheumatoid arthritis ([facility]) Primary osteoarthritis of right knee documented in this encounter Additional Health Concerns Assessment Noted Time PHQ-9 Depression Total Score: 0 08/01/19 23 11:32 AM EDT documented as of this encounter Care Teams Property Field Inspector Relationship Specialty Start Date End Date Shi Lancaster MD [address] [place] [address] PCP - General Family Medicine 11/26/17 [facility] 01/03/24 documented as of this encounter
--- OUTSIDE RECORDS SUMMARY | 2024-05-21 14:49 | XMS_ITS | Encounter Summary ---
Author Organization [employer] [facility] Address [address] [place] [address] 7[address] [place] [address] Care Team Providers Care Machine Sole Leveler Name Role Phone Shi Lancaster MD Primary Care Provide r Reason for Visit * Reason Comments Med Refill Encounter Details Date Type Department Care Team (Late Contact Info) Description 09/26/2022 Refill [facility] MEDICINE [address] [place] [address] Shi Lancaster MD [address] [place] [address] Acute deep vein thrombosis (DVT) of proximal [...] suspected to have Coronavirus/COVID-19? No / Unsure 09/24/2022 11:01 AM EDT documented as of this encounter Plan of Treatment Upcoming Encounters Date Type Department Care Team (Late Contact Info) Description 05/27/2024 9:00 AM EDT [facility] [address] [place] [address] [place] [address] Sosa Horan RN documented as of this encounter Visit Diagnoses Diagnosis Acute deep vein thrombosis (DVT) of proximal vein of lower extremity, unspecified laterality (CMS/HCC) documented in this encounter Additional Health Concerns Assessment Noted Time PHQ-9 Depression Total Score: 0 08/01/19 23 11:32 AM EDT documented as of this encounter Care Teams Machine Sole Leveler Relationship Specialty Start Date End Date Shi Lancaster MD [address] [place] [address] PCP - General Family Medicine 11/26/17 [facility] 01/03/24 documented as of this encounter
== END 2024-05-21 13:11 | disposition home or self-care (01) ==
LOC: HO.US 13:10
PROVIDERS: PCP Internal Medicine; Visit Provider Internal Medicine
DX: I82.401 Acute embolism and thrombosis of unspecified deep veins of right lower extremity (principal)
CPT/HCPCS: 93971

== ENCOUNTER → 2024-05-21 13:26 | Outpatient (BNV) | payer MEDICAID, SELFPAY | PROVIDERS: PCP Internal Medicine; Visit Provider Radiology Diagnostic Radiology | DX: Z86.718 Personal history of other venous thrombosis and embolism (principal) | CPT/HCPCS: 93971 ==

== ENCOUNTER 2024-05-25 10:56 | Outpatient (REF) | payer MEDICAID, SELFPAY ==
[2024-05-25 11:19] LABS: MANUAL DIFF FLAG NO
[2024-05-25 11:58] LABS: Basophils Percent Auto 0.5 % (0-2); Eosinophils Absolute Auto 0.1 X10*3/uL (0.0-0.4); Hematocrit 41.4 % (42.0-52.0); Hemoglobin 14.5 g/dl (14.0-18.0); Imm Gran Abs Auto 0.01 X10*3/uL (0.00-0.03); Imm Gran Pct Auto 0.2 % (0.0-0.4); Lymphocytes Absolute Auto 1.2 X10*3/uL (1.2-4.9); Lymphocytes Percent Auto 26.9 % (20-40); Mean Corpuscular Hemoglobin 33.7 pg (27.0-33.0); Mean Corpuscular Volume 96.3 fL (80.0-98.0); Mean Platelet Volume 10.2 fL (9.4-12.4); Monocytes Absolute Auto 0.6 X10*3/uL (0.1-1.2); Monocytes Percent Auto 14.5 % (2-11); Neutrophils Absolute Auto 2.4 x10*3/uL (2.0-8.3); Neutrophils Percent Auto 54.9 % (45-73); Platelet Count 168 X10*3/uL (160-400); Red Cell Distribution Width 13.9 % (11.0-16.0); White Blood Count 4.4 X10*3/uL (4.8-10.8)
[2024-05-25 12:42] LABS: Erythrocyte Sedimentation Rate 2 MM/HR (0-15)
[2024-05-25 12:43] LABS: Uric Acid 5.1 mg/dL (3.4-7.0)
[2024-05-25 13:06] LABS: Albumin Level 4.2 g/dL (3.5-5.0); Alkaline Phosphatase 86 U/L (39-117); Anion Gap 10 (12-20); Aspartate Amino Transferase 19 U/L (5-37); Bilirubin Total 0.4 mg/dL (0.0-1.0); Blood Urea Nitrogen 11 mg/dL (9-16); C Reactive Protein < 0.10 mg/dL (< or = 0.50); Calcium 9.6 mg/dL (8.4-10.2); Carbon Dioxide 29 mmol/L (22-29); Chloride 103 mmol/L (96-108); Estimated Glomerular Filt Rate > 60; Glucose Random 97 mg/dL (60-115); Potassium 3.4 mmol/L (3.3-5.1); Sodium 139 mmol/L (135-145); Total Protein 7.1 g/dL (6.5-8.0)
[2024-05-25 13:22] LABS: Alanine Aminotransferase 35 U/L (0-40)
--- OUTSIDE RECORDS SUMMARY | 2024-05-25 13:30 | XMS_ITS | Encounter Summary ---
Author Organization [employer] Address [address] [facility] 7t [place] [address] Care Team Providers Care Superintendent Production Name Role Phone Shi Lancaster MD Primary [...] Description 05/27/2024 9:00 AM EDT Clinical Support [facility] MEDICINE [address] [place] [address] Sosa Horan, RN documented as of this encounter Visit Diagnoses Not on filedocumented in this encounter Additional Health Concerns Assessment Noted Time PHQ-9 Depression Total Score: 0 08/01/19 23 11:32 AM EDT documented as of this encounter Care Teams Superintendent Production Relationship Specialty Start Date End Date Shi Lancaster MD [address] [place] [address] PCP - General Family Medicine 11/26/17 [facility] 01/[facility]24 documented as of this encounter
--- OUTSIDE RECORDS SUMMARY | 2024-05-25 13:30 | XMS_ITS | Encounter Summary ---
Author Organization [employer] Address [address] [facility] 7t [place] [address] Care Team Providers Care Director Of It Operations Name Role Phone Shi Lancaster MD Primary Care Provide r Reason for Visit * Reason Onset Date Comments Recommend IT INFRASTRUCTURE MANAGER Tier 1 04/28/2024 Encounter Details Date Type Department Care Team ([facility] st Contact Info) Description 04/28/2024 Telephone [facility] MEDICINE [address] [place] [address] Sosa Horan, FIONA Recommend IT INFRASTRUCTURE MANAGER Tier 1 Social History Tobacco Use Types [...] RN - 04/28/2024 7:33 AM EST What IT INFRASTRUCTURE MANAGER Tier would you like this patient to be? I recommend Tier 1, please let me know if you agree or would rather patient be in another IT INFRASTRUCTURE MANAGER Tier. Tier 1 = HIGH RISK, Monthly IT INFRASTRUCTURE MANAGER visits Tier 2 = MODerate RISK, Q3 Month visits Tier 3 = LOW RISK = Q4-6 month visits documented in this encounter Plan of Treatment Upcoming Encounters Date Type Department Care Team (Late st Contact Info) Description 05/27/2024 9:00 AM EDT Clinical Support [facility] MEDICINE [address] [place] [address] Sosa Horan RN documented as of this encounter Visit Diagnoses Not on filedocumented in this encounter Additional Health Concerns Assessment Noted Time PHQ-9 Depression Total Score: 0 08/01/19 23 11:32 AM EDT documented as of this encounter Care Teams Director Of It Operations Relationship Specialty Start Date End Date Shi Lancaster MD [address] [place] [address] PCP - General Family Medicine 11/26/17 [facility] 01/03/24 documented as of this encounter
--- OUTSIDE RECORDS SUMMARY | 2024-05-25 13:30 | XMS_ITS | Encounter Summary ---
Author Organization [employer] Address [address] [place] [address] [address], [place] [address] Care Team Providers Care Hide And Skin Processing Worker Name Role Phone Shi Lancaster MD Primary Care Provide r Reason for Visit * Reason Onset Date Comments Med Refill 09/16/2022 Encounter Details Date Type Department Care Team (Late st Contact Info) Description 09/16/[address] [facility] MEDICINE [address] [place] [address] Shi Lancaster MD [address] [place] [address] Med Refill Social History Tobacco Use Types [...] Description 05/27/2024 9:00 AM EDT Clinical Support [facility] MEDICINE [address] [place] [address] Sosa Horan RN documented as of this encounter Visit Diagnoses Not on filedocumented in this encounter Additional Health Concerns Assessment Noted Time PHQ-9 Depression Total Score: 0 08/01/19 23 11:32 AM EDT documented as of this encounter Care Teams Hide And Skin Processing Worker Relationship Specialty Start Date End Date Shi Lancaster MD [address] [facility] [place] [address] PCP - General Family Medicine 11/26/17 [facility] 01/03/24 documented as of this encounter
--- OUTSIDE RECORDS SUMMARY | 2024-05-25 13:30 | XMS_ITS | Encounter Summary ---
Author Organization [employer] [facility] [employer] Address [address] [facility] 7t [place] [address] Care Team Providers Care Alternative Dispute Resolution Mediator Name Role Phone Shi Lancaster MD Primary Care Provide r Reason for Visit * Reason Comments Med Refill Encounter Details Date Type Department Care Team ([facility] st Contact Info) Description 04/29/2024 Refill [facility] MEDICINE [address] [place] [address] Shi Lancaster MD [address] [place], [place] [phone] Acute deep vein thrombosis (DVT) of proximal [...] Description 05/27/2024 9:00 AM EDT Clinical Support [facility] MEDICINE [address] [place] [address] Sosa Horan RN documented as of this encounter Visit Diagnoses Diagnosis Acute deep vein thrombosis (DVT) of proximal vein of lower extremity, unspecified laterality (CMS/HCC) documented in this encounter Additional Health Concerns Assessment Noted Time PHQ-9 Depression Total Score: 0 08/01/19 23 11:32 AM EDT documented as of this encounter Care Teams Alternative Dispute Resolution Mediator Relationship Specialty Start Date End Date Shi Lancaster MD [address] [place] [address] PCP - General Family Medicine [facility] documented as of this encounter
--- OUTSIDE RECORDS SUMMARY | 2024-05-25 13:30 | XMS_ITS | Encounter Summary ---
Author Organization [employer] Address 75 [facility] 7t [place] [address] Care Team Providers Care Web Development Consultant Name Role Phone Shi Lancaster MD Primary Care Provide r Reason for Visit * Reason Onset Date Comments Appointment Request 06/26/2023 Encounter Details Date Type Department Care Team ([facility] st Contact Info) Description 06/26/2023 Telephone [facility] MEDICINE [address] [place], [place] [phone] Shi Lancaster MD [address] [place], [place] [phone] Appointment Request Social History Tobacco Use Types [...] Description 05/27/2024 9:00 AM EDT Clinical Support [facility] MEDICINE [address] [place] [address] Sosa Horan, RN documented as of this encounter Visit Diagnoses Not on filedocumented in this encounter Additional Health Concerns Assessment Noted Time PHQ-9 Depression Total Score: 0 08/01/19 23 11:32 AM EDT documented as of this encounter Care Teams Web Development Consultant Relationship Specialty Start Date End Date Shi Lancaster MD [address] [place] [address] PCP - General Family Medicine 11/26/17 [facility] 01/03/24 documented as of this encounter
--- OUTSIDE RECORDS SUMMARY | 2024-05-25 13:30 | XMS_ITS | Encounter Summary ---
Author Organization [employer] Address 75 [facility] 7t [place] [address] Care Team Providers Care Compressed Gas Equipment Mechanic Name Role Phone Shi Lancaster MD Primary Care Provide r Reason for Visit * Reason Onset Date Comments Med Refill 12/04/2023 Encounter Details Date Type Department Care Team ([facility] st Contact Info) Description 12/04/2023 Refill [facility] MEDICINE [address] [place] [address] Shi Lancaster MD [address] [place] [address] Acute deep vein thrombosis (DVT) of proximal [...] Description 05/27/2024 9:00 AM EDT Clinical Support [facility] MEDICINE [address] [place] [address] Sosa Horan RN documented as of this encounter Visit Diagnoses Diagnosis Acute deep vein thrombosis (DVT) of proximal vein of lower extremity, unspecified laterality (CMS/HCC) documented in this encounter Additional Health Concerns Assessment Noted Time PHQ-9 Depression Total Score: 0 08/01/19 23 11:32 AM EDT documented as of this encounter Care Teams Compressed Gas Equipment Mechanic Relationship Specialty Start Date End Date Shi Lancaster MD [address] [place] [phone] PCP - General Family Medicine 11/26/17 [facility] 01/03/24 documented as of this encounter
--- OUTSIDE RECORDS SUMMARY | 2024-05-25 13:30 | XMS_ITS | Encounter Summary ---
Author Organization [employer] Address 75 [facility] 7t [place] [address] Care Team Providers Care Paint Spray Tender Name Role Phone Shi Lancaster MD Primary Care Provide r Reason for Visit * Reason Onset Date Comments Med Refill 10/08/2023 Encounter Details Date Type Department Care Team ([facility] st Contact Info) Description 10/08/2023 Refill [facility] MEDICINE [address] [place], [place] [phone] Shi Lancaster MD 230 [place], [place] [phone] Seropositive rheumatoid arthritis (CMS/HCC); Primary osteoarthritis of [...] Description 05/27/2024 9:00 AM EDT Clinical Support [facility] MEDICINE 230 [place] [address] Sosa Horan RN documented as of this encounter Visit Diagnoses Diagnosis Seropositive rheumatoid arthritis (CMS/[facility]) Primary osteoarthritis of right knee documented in this encounter Additional Health Concerns Assessment Noted Time PHQ-9 Depression Total Score: 0 08/01/19 23 11:32 AM EDT documented as of this encounter Care Teams Paint Spray Tender Relationship Specialty Start Date End Date Shi Lancaster MD [address] [place] [address] PCP - General Family Medicine 11/26/17 [facility] 01/03/24 documented as of this encounter
--- OUTSIDE RECORDS SUMMARY | 2024-05-25 13:30 | XMS_ITS | Encounter Summary ---
Author Organization [employer] Address 75 [facility] 7t [place] [address] Care Team Providers Care Resp Therapist Name Role Phone Shi Lancaster MD Primary Care Provide r Reason for Visit * Reason Comments Med Refill Encounter Details Date Type Department Care Team ([facility] st Contact Info) Description 05/24/2024 Refill [facility] MEDICINE 230 [place], [place] [phone] Yenny Shea MD 230 [place] [address] Osteoarthritis of right knee, unspecified osteoarthritis type Social History Tobacco Use Types Packs/Day Years [...] Description 05/27/2024 9:00 AM EDT Clinical Support [facility] MEDICINE 230 [place] [address] Sosa Horan RN documented as of this encounter Visit Diagnoses Diagnosis Osteoarthritis of right knee, unspecified osteoarthritis type documented in this encounter Additional Health Concerns Assessment Noted Time PHQ-9 Depression Total Score: 0 08/01/19 23 11:32 AM EDT documented as of this encounter Care Teams Resp Therapist Relationship Specialty Start Date End Date Shi Lancaster MD 230 [place] [address] PCP - General Family Medicine 11/26/17 [facility] 01/03/24 documented as of this encounter
--- OUTSIDE RECORDS SUMMARY | 2024-05-25 13:30 | XMS_ITS | Encounter Summary ---
Author Organization [employer] Address 75 [facility] 7t [place] [address] Care Team Providers Care Bed And Breakfast Cook Name Role Phone Shi Lancaster MD Primary Care Provide r Reason for Visit * Reason Onset Date Comments Med Refill 05/24/2024 Encounter Details Date Type Department Care Team ([facility] st Contact Info) Description 05/24/2024 Refill [facility] MEDICINE 230 [place] [address] Shi Lancaster MD 230 [place] [address] Chronic bilateral low back pain, unspecified whether sciatica present Social History Tobacco Use Types Packs/Day Years [...] encounter Miscellaneous Notes * Telephone Encounter - Sammy Knox - 05/24/2024 11:17 AM EDT TC from pt requesting medication refill. Medications needing refill : oxyCODONE (Roxicodone) 5 MG immediate release tablet To be sent to: [facility]/pharmacy #[id number] [place], [place] - [address] [place] [address] documented in this encounter Plan of Treatment Upcoming Encounters Date Type Department Care Team (Late st Contact Info) Description 05/27/2024 9:00 AM EDT Clinical Support [facility] MEDICINE [address] [place] [address] Sosa Horan, FIONA documented as of this encounter Visit Diagnoses Diagnosis Chronic bilateral low back pain, unspecified whether sciatica present documented in this encounter Additional Health Concerns Assessment Noted Time PHQ-9 Depression Total Score: 0 08/01/19 23 11:32 AM EDT documented as of this encounter Care Teams Bed And Breakfast Cook Relationship Specialty Start Date End Date Shi Lancaster MD 230 [place] [address] PCP - General Family Medicine 11/26/17 [facility] 01/03/24 documented as of this encounter
--- OUTSIDE RECORDS SUMMARY | 2024-05-25 13:30 | XMS_ITS | Encounter Summary ---
Author Organization [employer] Address [address] [facility] [address] 7t [place] [address] Care Team Providers Care Cartography Supervisor Name Role Phone Shi Lancaster MD Primary Care Provide r Encounter Details Date Type Department Care Team ([facility] Contact Info) Description 05/21/2024 Orders Only [facility] External Provider, [facility] Social History Tobacco Use Types Packs/Day Years [...] Description 05/27/2024 9:00 AM EDT Clinical Support [facility] MEDICINE [address] [place] [address] Sosa Horan, RN documented as of this encounter Procedures Procedure Name Priority Date/Time Associated Diagnosis Comments US VENOUS DUPLEX LE RT Routine 05/21/2024 2:08 PM EST documented in this encounter Results * US VENOUS DUPLEX LE RT (05/21/2024 2:08 PM EST) Anatomical Region Laterality Modality Abdomen Ultrasound 05/21/2024 2:08 PM EST Narrative 05/21/2024 3:17 PM EST ? [facility] ?[address] ?[place] [address] ? Ultrasound Report ? Signed ? Patient: Gómez Pelletier ?MR#: [id number] ? : 1975 ?Acct:[id number] ? Age/Sex: 48 / M ?ADM Date: 05/21/24 ? Loc: HO.US ? Attending Dr: Elza Garza MD ? Ordering Physician: Elza Garza MD ?? Date of Service: 05/21/24 ?? Procedure(s): US venous duplex LE RT ?? Accession Number(s): [id number] ? cc: Shi Lancaster MD; Elza Garza MD ? EXAMINATION: ?? US TRIPLEX LOWER EXTREMITY, RIGHT ? CLINICAL INFORMATION: ?? History of 5 right lower extremity DVT on blood thinners/antecubital ?? lesion treatment for 3 years ? COMPARISON: ?? Ultrasound dated December 31, 2021. ? TECHNIQUE: ?? Color-flow triplex imaging with spectral analysis and compression ?? Doppler were performed on the right lower extremity. ? FINDINGS: ?? Respiratory variation, normal compression and augmented flow are noted ?? throughout the visualized common femoral vein, superficial femoral ?? vein, profunda femoral vein, popliteal vein and midcalf peroneal and ?? posterior tibial venous segments. ?? There is a 3.5 cm area 5 calcification in the right greater saphenous ?? vein mid calf demonstrated flow on color Doppler interrogation. ? There is no Toribio's cyst. ? US/US venous duplex LE RT ?? IMPRESSION: ?? No acute deep venous thrombosis involving the right lower extremity. ? Electronically signed by: ??Baldomero Sadler MD ??05/21/2024 03:14 PM ?? EST RP ? Dictated By: ?Baldomero Bennett MD ? Signed By: ?<Electronically signed by Baldomero Arriola MD in OV> ? 05/21/24 1514 ? DD/ 1408 ? TD/TT: 05/21/24 1429 ? Utility Arborist: ? Procedure Note Donvictor hugoter, Image - 05/21/2024 [place] [address] Ultrasound Report Signed Patient: Gómez Pelletier MMR#: [id number] : 1975Acct:[id number] Age/Sex: 48 / MADM Date: 05/21/24 Loc: HO. 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 TECHNIQUE: Color-flow triplex imaging with spectral analysis and compression Doppler were performed on the right lower extremity. FINDINGS: Respiratory variation, normal compression and augmented flow are noted throughout the visualized common femoral vein, superficial femoral vein, profunda femoral vein, popliteal vein and midcalf peroneal and posterior tibial venous segments. There is a 3.5 cm area 5 calcification in the right greater saphenous vein mid calf demonstrated flow on color Doppler interrogation. There is no Toribio's cyst. US/US venous duplex LE RT IMPRESSION: No acute deep venous thrombosis involving the right lower extremity. Electronically signed by: Baldomero Sadler MD 05/21/2024 03:14 PM EST RP Dictated By: Baldomero Bennett MD Signed By: <Electronically signed by Baldomero Arriola MDin OV> 05/21/24 1514 DD/ 1408 TD/TT: 05/21/24 1429 Utility Arborist: [facility] External Provider IMG US PROCEDURES Final Result documented in this encounter Visit Diagnoses Not on filedocumented in this encounter Additional Health Concerns Assessment Noted Time PHQ-9 Depression Total Score: 0 08/01/19 23 11:32 AM EDT documented as of this encounter Care Teams Cartography Supervisor Relationship Specialty Start Date End Date Shi Lancaster MD [address] [place] [address] PCP - General Family Medicine 11/26/17 [facility] 01/03/24 documented as of this encounter
--- OUTSIDE RECORDS SUMMARY | 2024-05-25 13:30 | XMS_ITS | Encounter Summary ---
Author Organization [employer] Address 75 [facility] 7t [place] [address] Care Team Providers Care Record Filing Clerk Name Role Phone Shi Lancaster MD [...] EDT Clinical Support [facility] MEDICINE 230 [place] [address] Sosa Horan, RN documented as of this encounter Visit Diagnoses Not on filedocumented in this encounter Additional Health Concerns Assessment Noted Time PHQ-9 Depression Total Score: 0 08/01/19 23 11:32 AM EDT documented as of this encounter Care Teams Record Filing Clerk Relationship Specialty Start Date End Date Shi Lancaster MD 230 [place] [address] PCP - General Family Medicine 11/26/17 [facility] documented as of this encounter
--- OUTSIDE RECORDS SUMMARY | 2024-05-25 13:30 | XMS_ITS | Encounter Summary ---
Author Organization [employer] Address 75 [facility] 7t [place] [address] Care Team Providers Care Engineering Intern Name Role Phone Shi Lancaster MD Primary [...] your housing situation today? I have lorenzodiana barr 04/30/[address] you li [...] 9:00 AM EDT Clinical Support [facility] MEDICINE 230 [place] [address] Sosa Horan, RN documented as of this encounter Visit Diagnoses Not on filedocumented in this encounter Additional Health Concerns Assessment Noted Time PHQ-9 Depression Total Score: 0 08/01/19 23 11:32 AM EDT documented as of this encounter Care Teams Engineering Intern Relationship Specialty Start Date End Date Shi Lancaster MD [address] [place] [address] PCP - General Family Medicine 11/26/17 [facility] documented as of this encounter
--- OUTSIDE RECORDS SUMMARY | 2024-05-25 13:30 | XMS_ITS | Encounter Summary ---
Author Organization [employer] Address [address] [place] [address] 7[place] [address] Care Team Providers Care Polytechnic Registrar Name Role Phone Shi Lancaster MD Primary Care Provide r Reason for Visit * Reason Onset Date Comments Appointment Request 09/03/2022 Encounter Details Date Type Department Care Team ([facility] st Contact Info) Description 09/03/2022 Telephone [facility] MEDICINE 230 [place], [place] [phone] Shi Lancaster MD [address] [place], [place] [phone] Appointment Request Social History Tobacco Use Types [...] 9:00 AM EDT Clinical Support [facility] MEDICINE [address] [place] [address] Sosa Horan RN documented as of this encounter Visit Diagnoses Not on filedocumented in this encounter Additional Health Concerns Assessment Noted Time PHQ-9 Depression Total Score: 0 08/01/19 11:32 AM EDT documented as of this encounter Care Teams Polytechnic Registrar Relationship Specialty Start Date End Date Shi Lancaster MD 230 [place] [address] PCP - General Family Medicine 11/26/17 [facility] Tonie 01/03/24 documented as of this encounter
--- OUTSIDE RECORDS SUMMARY | 2024-05-25 13:30 | XMS_ITS | Encounter Summary ---
Author Organization [employer] [facility] Address [address] [place] [address] 7[place] [address] Care Team Providers Care Gas Welder Apprentice Name Role Phone Shi Lancaster MD Primary Care Provide r Reason for Visit * Reason Comments Med Refill Encounter Details Date Type Department Care Team (Late Contact Info) Description 09/26/2022 Refill [facility] MEDICINE [address] [place] [address] Shi Lancaster MD 230 [place] [address] Acute deep vein thrombosis (DVT) of proximal [...] 9:00 AM EDT Clinical Support [facility] MEDICINE [address] [place] [address] [place] [address] Sosa Horan RN documented as of this encounter Visit Diagnoses Diagnosis Acute deep vein thrombosis (DVT) of proximal vein of lower extremity, unspecified laterality (CMS/HCC) documented in this encounter Additional Health Concerns Assessment Noted Time PHQ-9 Depression Total Score: 0 08/01/19 23 11:32 AM EDT documented as of this encounter Care Teams Gas Welder Apprentice Relationship Specialty Start Date End Date Shi Lancaster MD 230 [place] [address] PCP - General Family Medicine 11/26/17 [facility] documented as of this encounter
--- OUTSIDE RECORDS SUMMARY | 2024-05-25 13:30 | XMS_ITS | Encounter Summary ---
Author Organization [employer] Address 75 [facility] 7t [place] [address] Care Team Providers Care Family Law Specialist Name Role Phone Shi Lancaster MD Primary Care Provide r Encounter Details Date Type Department Care Team (Latest Contact Info) Description 05/14/2024 11:30 AM EST Office Visit [facility] MEDICINE 230 [place] [address] Shi Lancaster MD 230 [place] [address] Primary osteoarthritis of both knees (Primary Dx); [...] as needed for pain control Sinus tachycardia Calender Inspector is aware of his sinus tachycardia and [...] 4:31 PM EST Associated Problem(s): Sinus tachycardia Calender Inspector is aware of his sinus tachycardia and [...] Description 05/27/2024 9:00 AM EDT Clinical Support [facility] MEDICINE 230 [place] [address] Sosa Horan, RN documented as of this [...] documented as of this encounter Care Teams Family Law Specialist Relationship Specialty Start Date End Date Shi Lancaster MD 230 [place] [address] PCP - General Family Medicine 11/26/17 [facility] 01/03/24 documented as of this encounter
--- OUTSIDE RECORDS SUMMARY | 2024-05-25 13:30 | XMS_ITS | Encounter Summary ---
Author Organization [employer] Address 75 [facility] 7t [place] [address] Care Team Providers Care Eastern Philosophy Professor Name Role Phone Shi Lancaster MD Primary Care Provide r Reason for Visit * Reason Onset Date Comments Med Refill 03/22/2024 Encounter Details Date Type Department Care Team ([facility] st Contact Info) Description 03/22/2024 Refill [facility] MEDICINE [address] [place] [address] Shi Lancaster MD [address] [place] [address] Acute deep vein thrombosis (DVT) of proximal [...] Description 05/27/2024 9:00 AM EDT Clinical Support [facility] MEDICINE [address] [place] [address] Sosa Horan RN documented as of this encounter Visit Diagnoses Diagnosis Acute deep vein thrombosis (DVT) of proximal vein of lower extremity, unspecified laterality (CMS/HCC) documented in this encounter Additional Health Concerns Assessment Noted Time PHQ-9 Depression Total Score: 0 08/01/19 23 11:32 AM EDT documented as of this encounter Care Teams Eastern Philosophy Professor Relationship Specialty Start Date End Date Shi Lancaster MD [address] [place] [address] PCP - General Family Medicine 11/26/17 [facility] 01/03/24 documented as of this encounter
--- OUTSIDE RECORDS SUMMARY | 2024-05-25 13:30 | XMS_ITS | Encounter Summary ---
Author Organization [employer] Address 75 [facility] [address] [address] Care Team Providers Care Oim Consultant Name Role Phone Shi Lancaster MD [...] Clinical Support [facility] MEDICINE [address] [place] [address] Sosa Horan RN documented as of this encounter Visit Diagnoses Not on filedocumented in this encounter Additional Health Concerns Assessment Noted Time PHQ-9 Depression Total Score: 0 08/01/19 23 11:32 AM EDT documented as of this encounter Care Teams Oim Consultant Relationship Specialty Start Date End Date Shi Lancaster MD 230 [place] [address] PCP - General Family Medicine 11/26/17 [facility] 01/[facility]24 documented as of this encounter
--- OUTSIDE RECORDS SUMMARY | 2024-05-25 13:30 | XMS_ITS | Encounter Summary ---
Author Organization [facility] Address [address] [place] [address] 7 [place] [address] Care Team Providers Care Electronic Equipment Maint Tech Name Role Phone Shi Lancaster MD Primary Care Provide r Reason for Visit * Reason Comments Med Refill Encounter Details Date Type Department Care Team (Late Contact Info) Description 06/12/2022 Refill [facility] MEDICINE 230 [place] [address] Keiry Joseph DO [address] [place] [address] Acute deep vein thrombosis (DVT) of proximal [...] Description 05/27/2024 9:00 AM EDT Clinical Support [facility] MEDICINE [address] [place] [address] Sosa Horan RN documented as of this encounter Visit Diagnoses Diagnosis Acute deep vein thrombosis (DVT) of proximal vein of lower extremity, unspecified laterality (CMS/HCC) documented in this encounter Care Teams Electronic Equipment Maint Tech Relationship Specialty Start Date End Date Shi Lancaster MD [address] [place] [address] PCP - General Family Medicine 11/26/17 [facility] 01/03/24 documented as of this encounter
--- OUTSIDE RECORDS SUMMARY | 2024-05-25 13:30 | XMS_ITS | Encounter Summary ---
Author Organization [employer] Address 75 [facility] 7t [place] [address] Care Team Providers Care Director Epidemiology Name Role Phone Shi Lancaster MD Primary Care Provide r Reason for Visit * Reason Comments OPERATIONS AGENT Renewal OPERATIONS AGENT Renewal Encounter Details Date Type Department Care Team (Latest Contact Info) Description 04/28/2024 9:30 AM EST Clinical Support [facility] MEDICINE 230 [place] [address] Sosa Horan RN Chronic bilateral low back [...] 9:30 AM EST S: Pt here for OPERATIONS AGENT Renewal Visit, translation provided by cook islander speaking staff member Quentin Medina Prescribed Oxycodone [...] lower back and left ankle. Pt cancelled OPERATIONS AGENT 04/08/24, 01/12/24 and was [facility] for chronic pain group 08/26/23. O: OPERATIONS AGENT Tier 1. Pt currently prescribed Oxycodone 5mg Q8hr PRN. CLIP COATER verified today. Rx last filled on 04/01/24. [...] visit was 11/10/23, scheduled next 05/14/24. A: OPERATIONS AGENT Contract Renewal Visit: Chronic Opioid use related to pain. P: OPERATIONS AGENT contract reviewed and signed, Pt provided copy. Pt to continue taking medication only as prescribed; Next OPERATIONS AGENT RV appointment scheduled for 05/27/24 @ 9am, F/U sooner PRN. Appointment reminder given. Pt verbalized understanding and agreed to plan. documented in this encounter Plan of Treatment Upcoming Encounters Date Type Department Care Team (Late st Contact Info) Description 05/27/2024 9:00 AM EDT Clinical Support [address] [address] Sosa Horan, RN documented as of this [...] - 04/28/2024 9:36 AM EST [employer] cup Lot#[id number] Exp. 11/03/25 Internal Pass Control Shi Gage MD POINT OF CARE TEST EN TER/EDIT ORDERABLES Final Result documented in this encounter Visit Diagnoses Diagnosis Chronic bilateral low back pain, unspecified whether sciatica present- Primary documented in this encounter Additional Health Concerns Assessment Noted Time PHQ-9 Depression Total Score: 0 08/01/19 23 11:32 AM EDT documented as of this encounter Care Teams Director Epidemiology Relationship Specialty Start Date End Date Shi Lancaster MD [address] [place] [address] PCP - General Family Medicine 11/26/17 [facility] 01/03/24 documented as of this encounter
--- OUTSIDE RECORDS SUMMARY | 2024-05-25 13:30 | XMS_ITS | Encounter Summary ---
Author Organization [employer] Address [address] [facility] 7t [place] [address] Care Team Providers Care Power Plant Engineer Name Role Phone Shi Lancaster MD Primary Care Provide r Reason for Visit * Reason Comments Pre-visit Planning SDOH screening negat benito and tobacco screening negative Encounter Details Date Type Department Care Team ([facility] Contact Info) Description 04/30/2024 Patient Outreach [facility] [address] [place] [address] Shi Lancaster MD [address] [place] [address] Pre-visit Planning (SDOH screening negative and tobacco [...] 9:00 AM EDT Clinical Support [facility] [address] [place] [address] Sosa Horan RN documented as of this encounter Visit Diagnoses Not on filedocumented in this encounter Additional Health Concerns Assessment Noted Time PHQ-9 Depression Total Score: 0 08/01/19 23 11:32 AM EDT documented as of this encounter Care Teams Power Plant Engineer Relationship Specialty Start Date End Date Shi Lancaster MD [address] [place] [address] PCP - General Family Medicine 11/26[facility] documented as of this encounter
--- OUTSIDE RECORDS SUMMARY | 2024-05-25 13:30 | XMS_ITS | Encounter Summary ---
Author Organization [facility] Address [address] [place] [address] 7t [place] [address] Care Team Providers Care Touring Production Manager Name Role Phone Shi Lancaster MD Primary Care Provide r Encounter Details Date Type Department Care Team (Latest Contact Info) Description 09/30/2018 Abstract [facility] CONVERSIONS Dental, Provider, DDS Social History Tobacco [...] Clinical Support [facility] [address] [place] [address] Sosa Horan RN documented as of this encounter Visit Diagnoses Not on filedocumented in this encounter Care Teams Touring Production Manager Relationship Specialty Start Date End Date Shi Lancaster MD [address] [place] [address] PCP - General Family Medicine 11/26/17 [facility] 01/03/24 documented as of this encounter
--- OUTSIDE RECORDS SUMMARY | 2024-05-25 13:30 | XMS_ITS | Encounter Summary ---
Author Organization [employer] Address [address] [facility] 7t [place] [address] Care Team Providers Care Petroleum Refining Equipment Operator Name Role Phone Shi Lancaster MD Primary Care Provide r Reason for Visit * Reason Onset Date Comments Med Refill 04/28/2024 [employer] Renewal completed today 04/28/2024 Encounter Details Date Type Department Care Team (Late st Contact Info) Description 04/28/2024 Refill [facility]ICINE [address] [place] [address] Sosa Horan RN Chronic bilateral low back [...] - 04/28/2024 9:29 AM EST Pt had [employer] ARCHITECT Renewal appt today. BPI updated Pain severity score of 8, activity interference score of 4.8. Previous BPI completed 04/17/23 with pain severity score of 7.3, activity interference score of 4. documented in this encounter Plan of Treatment Upcoming Encounters Date Type Department Care Team (Late st Contact Info) Description 05/27/2024 9:00 AM EDT Clinical Support [facility] [address] [place] [address] Sosa Horan, RN documented as of this encounter Visit Diagnoses Diagnosis Chronic bilateral low back pain, unspecified whether sciatica present- Primary documented in this encounter Additional Health Concerns Assessment Noted Time PHQ-9 Depression Total Score: 0 08/01/19 23 11:32 AM EDT documented as of this encounter Care Teams Petroleum Refining Equipment Operator Relationship Specialty Start Date End Date Shi Lancaster MD [address] [place] [address] PCP - General Family Medicine 11/26/17 [facility] 01/03/24 documented as of this encounter
--- OUTSIDE RECORDS SUMMARY | 2024-05-25 13:30 | XMS_ITS | Clinical Summary ---
Author Organization [facility] Address [address] [place] [phone] Care Team Providers Care Application Helper Name Role Phone Shi Lancaster MD Primary [...] Documents on File Type Date Recorded Patient Soaker Helper Expl anation Health Care Decision (hx) 10/17/2015 AD HERNANDEZ DIRECTIVE Health Care Decision (hx) 10/17/2015 AD HERNANDEZ DIRECTIVE Care Teams Application Helper Relationship Specialty Start Date End Date Shi Lancaster MD [address] [place] [phone] PCP - General 03/11/23
--- OUTSIDE RECORDS SUMMARY | 2024-05-25 13:30 | XMS_ITS | Encounter Summary ---
Author Organization [employer] Address [address] [facility] 7t [place] [address] Care Team Providers Care Rag Room Supervisor Name Role Phone Shi Lancaster MD Primary Care Provide r Reason for Visit * Reason Onset Date Comments Med Refill 02/26/2024 Encounter Details Date Type Department Care Team ([facility] st Contact Info) Description 02/26/2024 Refill [facility] MEDICINE [address] [place] [address] Shi Lancaster MD [address] [place] [address] Chronic bilateral low back pain, unspecified whether [...] Description 05/27/2024 9:00 AM EDT Clinical Support [facility] MED[facility]INE [address] [place] [address] Sosa Horan RN documented as of this encounter Visit Diagnoses Diagnosis Chronic bilateral low back pain, unspecified whether sciatica present Seropositive rheumatoid arthritis ([facility]) Primary osteoarthritis of right knee documented in this encounter Additional Health Concerns Assessment Noted Time PHQ-9 Depression Total Score: 0 08/01/19 23 11:32 AM EDT documented as of this encounter Care Teams Rag Room Supervisor Relationship Specialty Start Date End Date Shi Lancaster MD [address] [place] [address] PCP - General Family Medicine 11/26/17 [facility] 01/03/24 documented as of this encounter
--- OUTSIDE RECORDS SUMMARY | 2024-05-25 13:30 | XMS_ITS | Encounter Summary ---
Author Organization [employer] Address [address] [facility] 7t [place] [address] Care Team Providers Care Family Practice Physician Assistant Name Role Phone Shi Lancaster MD Primary Care Provide r Encounter Details Date Type Department Care Team ([facility] Contact Info) Description 05/25/2024 Orders Only GENERIC EXTERNAL DATA DEPARTMENT Provider, Generic External Data Social History Tobacco Use Types Packs/Day Years [...] 9:00 AM EDT Clinical Support [facility] MEDICINE [address] [place] [phone] Sosa Horan RN documented as of this encounter Procedures Procedure Name Priority Date/Time Associated Diagnosis Comments CBC WITH AUTO DIFFERENTIAL Routine 05/25/2024 11:18 AM EDT SED RATE BY MODIFIED WESTERGREN Routine 05/25/2024 11:18 AM EDT URIC ACID Routine 05/25/2024 11:18 AM EDT documented in this encounter Results * Uric acid (05/25/2024 11:18 AM EDT) Uric Acid 5.1 3.4 - 7.0 mg/dL [facility] 05/25/2024 11:1 8 AM EDT 05/25/2024 11:18 AM EDT us Generic External Data Provider LAB BLOOD ORDERAB LES Final Result [facility] [address] [place] [phone] * Sed Rate by Modified Westergren (05/25/2024 11:18 AM EDT) Erythrocyte Sedimentation Rate 2 0 - 15 MM/HR [facility] Comment:Patients with polycy themia and many hemoglobin abnormalitiesmay have depressed sed rates whereas patients with anemiamay have elevated sed rates. 05/25/2024 11:1 8 AM EDT 05/25/2024 11:18 AM EDT us Generic External Data Provider LAB BLOOD ORDERAB LES Final Result [facility] [address] [place] [address] [phone] * (ABNORMAL) CBC auto differential (05/25/2024 11:18 AM EDT) White Blood Count 4.4(L) 4.8 - 10.8 X10*3/uL [facility] Red Blood Count 4.30(L) 4.60 - 5.80 X10*6/uL [facility] Hemoglobin 14.5 14.0 - 18.0 g/dl [facility] Hematocrit 41.4(L) 42.0 - 52.0 % [facility] Mean Corpuscular Volume 96.3 80.0 - 98.0 fL [facility] Mean Corpuscular Hemoglobin 33.7(H) 27.0 - 33.0 pg [facility] Mean Corpuscular HGB Conc 35.0 31.0 - 36.0 g/dl [facility] Red Cell Distribution Width 13.9 11.0 - 16.0 % [facility] Platelet Count 168 160 - 400 X10*3/uL [facility] Mean Platelet Volume 10.2 9.4 - 12.4 fL [facility] Neutrophils Percent Auto 54.9 45 - 73 % [facility] Imm Gran Pct Auto 0.2 0.0 - 0.4 % [facility] Lymphocytes Percent Auto 26.9 20 - 40 % [facility] Monocytes Percent Auto 14.5(H) 2 - 11 % [facility] Eosinophils Percent Auto 3.0 0 - 4 % [facility] Basophils Percent Auto 0.5 0 - 2 % [facility] NRBC Pct Auto 0.0 0.0 - 0.2 /100WBC [facility] Neutrophils Absolute Auto 2.4 2.0 - 8.3 x10*3/uL [facility] Imm Gran Abs Auto 0.01 0.00 - 0.03 X10*3/uL [facility] Lymphocytes Absolute Auto 1.2 1.2 - 4.9 X10*3/uL [facility] Monocytes Absolute Auto 0.6 0.1 - 1.2 X10*3/uL [facility] Eosinophils Absolute Auto 0.1 0.0 - 0.4 X10*3/uL [facility] Basophils Absolute Auto 0.0 0.0 - 0.2 X10*3/uL [facility] NRBC Abs Auto 0.000 0.0 - 0.012 X10*3/uL [facility] 05/25/2024 11:1 8 AM EDT 05/25/2024 11:18 AM EDT us Generic External Data Provider LAB BLOOD ORDERAB LES Final Result Performing Organization Address City/State/[facility] Co de Phone Number [facility] [address] [place] [phone] [phone] documented in this encounter Visit Diagnoses Not on filedocumented in this encounter Additional Health Concerns Assessment Noted Time PHQ-9 Depression Total Score: 0 08/01/19 23 11:32 AM EDT documented as of this encounter Care Teams Family Practice Physician Assistant Relationship Specialty Start Date End Date Shi Lancaster MD [address] [place] [address] PCP - General Family Medicine [facility] documented as of this encounter
--- OUTSIDE RECORDS SUMMARY | 2024-05-25 13:30 | XMS_ITS | Encounter Summary ---
Author Organization [employer] Address [address] [facility] 7t [place] [address] Care Team Providers Care Federal Agent Name Role Phone Shi Lancaster MD Primary Care Provide r Reason for Visit * Reason Onset Date Comments Med Refill 02/29/2024 Encounter Details Date Type Department Care Team ([facility] st Contact Info) Description 02/29/2024 Refill [facility] [address] [place] [address] Shi Lancaster MD [address] [place] [address] Primary hypertension Social History Tobacco Use Types [...] Description 05/27/2024 9:00 AM EDT Clinical Support [facility] [address] [place] [address] Sosa Horan RN documented as of this encounter Visit Diagnoses Diagnosis Primary hypertension Unspecified essential hypertension documented in this encounter Additional Health Concerns Assessment Noted Time PHQ-9 Depression Total Score: 0 08/01/19 23 11:32 AM EDT documented as of this encounter Care Teams Federal Agent Relationship Specialty Start Date End Date Shi Lancaster MD [address] [place] [address] PCP - General Family Medicine 11/26/17 [facility] 01/03/24 documented as of this encounter
--- OUTSIDE RECORDS SUMMARY | 2024-05-25 13:30 | XMS_ITS | Encounter Summary ---
Author Organization [employer] Address [address] [facility] 7t [place] [address] Care Team Providers Care Cast Iron Drain Pipe Layer Name Role Phone Shi Lancaster MD Primary Care Provide r Reason for Visit * Reason Onset Date Comments Med Refill 01/03/2024 Postop pain 01/03/2024 Encounter Details Date Type Department Care Team ([facility] st Contact Info) Description 01/03/2024 Refill [facility] MEDICINE [address] [place] [address] Shi Lancaster MD [address] [place] [address] Seropositive rheumatoid arthritis (CMS/HCC); Primary osteoarthritis of [...] EDT TC to patient, interpretation provided by [facility] medical clinic manager, pt had his R TKA procedure done [...] 05/27/2024 9:00 AM EDT Clinical Support [facility] [address] [place] [address] Sosa Horan, RN documented as of this encounter Visit Diagnoses Diagnosis Seropositive rheumatoid arthritis ([facility]) Primary osteoarthritis of right knee documented in this encounter Additional Health Concerns Assessment Noted Time PHQ-9 Depression Total Score: 0 08/01/19 23 11:32 AM EDT documented as of this encounter Care Teams Cast Iron Drain Pipe Layer Relationship Specialty Start Date End Date Shi Lancaster MD [address] [place] [address] PCP - General Family Medicine 11/26/17 [facility] 01/03/24 documented as of this encounter
--- OUTSIDE RECORDS SUMMARY | 2024-05-25 13:31 | XMS_ITS | Clinical Summary ---
Author Organization [employer] Address [address] [facility] [address] [place] [address] Care Team Providers Care Timber Girdler Name Role Phone Shi Lancaster MD Primary [...] MOUTH EVERY MORINING 90 tablet 025 Active naloxone (Narcan) 4 mg/0.1 mL nasal sprayIndications: Chronic bilateral low back pain, unspecified whether sciatica present Administer 1 spray (4 mg) into affected nostril(s) if needed for opioid reversal. 2 each 3 025 Active apixaban (Eliquis) 5 MG tabletIndications :Acute deep vein thrombosis (DVT) of proximal vein of lower extremity, unspecified laterality (CMS/HCC) TAKE 1 TABLET BY MOUTH TWICE A DAY 60 tablet 025 Active oxyCODONE (Roxicodone) 5 MG immediate release tabletIndications :Chronic bilateral low back pain, unspecified whether sciatica present Take 1 tablet (5 mg) by mouth every 8 (eight) hours if needed for severe pain for up to 28 days. Do not start before May 26, 2024. 84 tablet 025 2024 Active cyclobenzaprine (Flexeril) 10 MG tabletIndications :Osteoarthritis of right knee, unspecified osteoarthritis type TOME 1 TABLETA POR VIA ORAL CADA 8 HORAS 90 tablet 025 Active naloxone (Narcan) 4 [...] A DAY 60 tablet 025 2024 Discontinued cyclobenzaprine (Flexeril) 10 MG tabletIndications :Osteoarthritis of right knee, unspecified osteoarthritis type TAKE 1 TABLET BY MOUTH EVERY 8 HOURS 90 tablet 025 2024 Discontinued oxyCODONE (Roxicodone) 5 MG immediate release tabletIndications :Chronic bilateral low back pain, unspecified whether sciatica present Take 1 tablet (5 mg) by mouth every 8 (eight) hours if needed for severe pain for up to 28 days. 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 sinus tachycardia and [...] for pain patient will follow up with [employer] nurse I will inquire about electric wheelchair [...] Encounters Date Type Department Care Team Description 05/25/2024 Orders Only GENERIC EXTERNAL DATA DEPARTMENT Provider, Generic External Data 05/24/2024 Refill [facility] [address] [place] [address] Yenny Shea MD Osteoarthritis of right knee, unspecified osteoarthritis type 05/24/2024 Refill [facility] [address] [place] [address] Shi Lancaster MD Chronic bilateral low back pain, unspecified whether sciatica present 05/21/2024 Orders Only [facility] External Provider, [facility] 05/20/2024 Travel 05/14/2024 11:30 AM EST Office Visit [facility] [address] [place] [address] Shi Lancaster MD Primary osteoarthritis of both knees (Primary Dx); Primary hypertension; Rheumatoid arthritis involving multiple sites with positive rheumatoid factor ([facility]/HCC); Sinus tachycardia 05/14/2024 Travel 05/07/2024 Travel 04/30/2024 Patient Outreach [facility] [address] [place] [address] Shi Lancaster MD Pre-visit Planning (SDOH screening negative and tobacco screening negative) 04/29/2024 Refill [facility] [address] [place] [address] Shi Lancaster MD Acute deep vein thrombosis (DVT) of proximal vein of lower extremity, unspecified laterality ([facility]/HCC) 04/28/2024 9:30 AM EST Clinical Support [facility] [address] [place] [address] Sosa Horan RN Chronic bilateral low back pain, unspecified whether sciatica present (Primary Dx) 04/28/2024 Refill [facility] [address] [place] [address] Sosa Horan RN Chronic bilateral low back pain, unspecified whether sciatica present (Primary Dx) 04/28/2024 Travel 04/28/2024 Telephone [facility] [address] [place] [address] Sosa Horan RN Recommend [employer] Tier 1 04/21/2024 Travel 04/18/2024 Refill [facility] [address] [place] [address] Shi Lancaster MD Osteoarthritis of right knee, unspecified osteoarthritis type 04/07/2024 Telephone [facility] [address] [place] [phone] Shi Lancaster MD Appointment Request 04/05/2024 Refill [facility] [address] [place] [address] Shi Lancaster MD 03/31/2024 Refill [facility] [address] [place] [address] Shi Lancaster MD Chronic bilateral low back pain, unspecified whether sciatica present; Seropositive rheumatoid arthritis ([facility]); Primary osteoarthritis of right knee 03/22/2024 Refill [facility] [address] [place] [address] Shi Lancaster MD Acute deep vein thrombosis (DVT) of proximal vein of lower extremity, unspecified laterality ([facility]/HCC) 03/19/2024 Refill [facility] [address] [place] [address] Shi Lancaster MD Acute deep vein thrombosis (DVT) of proximal vein of lower extremity, unspecified laterality ([facility]) 02/29/2024 Refill [facility] [address] [place] [address] Shi Lancaster MD Primary hypertension 02/29/2024 Refill [facility] [address] [place] [address] Shi Lancaster MD Primary hypertension 02/26/2024 Refill [facility] [address] [place] [address] Shi Lancaster MD Chronic bilateral low back pain, unspecified whether sciatica present; Seropositive rheumatoid arthritis ([facility]); Primary osteoarthritis of right knee 02/26/2024 Refill [facility] [address] [place] [address] Shi Lancaster MD Chronic bilateral low back pain, unspecified whether sciatica present (Primary Dx); Seropositive rheumatoid arthritis ([facility]); Primary osteoarthritis of right knee from Last [...] Description 05/27/2024 9:00 AM EDT Clinical Support [facility] [address] [place] [address] Sosa Horan, RN Health Maintenance Due Date Last Done Comments CT Colonography 1975 Colonoscopy 1975 Colorectal Cancer Screening 1975 FIT DNA/Cologuard 1975 FIT 1975 FOBT 1975 HIV Screening 1975 Sigmoidoscopy 1975 Alcohol/Substance Use Screening 1987 Family Planning (PISQ) 10/19/1990 DTaP/Tdap/Td Vaccines (2 - Td or Tdap) 03/30/2022 03/30/2012 Depression Screening 08/01/2023 07/31/2022, 08/01/19 23 Dental Oral Exam 10/08/2023 04/08/2023, , 06/10/2016 [...] 10/19/2050 Hepatitis A Vaccines Completed 08/17/2012, 12/06/19 Hepatitis B Vaccines Completed 08/17/2012, 01/07/2012, 12/06/2011 [...] Procedure Name Priority Date/Time Associated Diagnosis Comments URIC ACID Routine 05/25/2024 11:18 AM EDT SED RATE BY MODIFIED WESTERGREN Routine 05/25/2024 11:18 AM EDT CBC WITH AUTO DIFFERENTIAL Routine 05/25/2024 11:18 AM EDT US VENOUS DUPLEX LE RT Routine 05/21/2024 2:08 PM EST POCT BIENVENIDO-14 URINE DRUG SCREEN Routine 04/28/2024 [...] Recently Relevant to Health Maintenance Results * (ABNORMAL) CBC auto differential (05/25/2024 11:18 AM EDT) White Blood Count 4.4(L) 4.8 - 10.8 X10*3/uL [facility] Red Blood Count 4.30(L) 4.60 - 5.80 X10*6/uL [facility] Hemoglobin 14.5 14.0 - 18.0 g/dl [facility] Hematocrit 41.4(L) 42.0 - 52.0 % [facility] Mean Corpuscular Volume 96.3 80.0 - 98.0 fL [facility] Mean Corpuscular Hemoglobin 33.7(H) 27.0 - 33.0 pg [facility] Mean Corpuscular HGB Conc 35.0 31.0 - 36.0 g/dl [facility] Red Cell Distribution Width 13.9 11.0 - 16.0 % [facility] Platelet Count 168 160 - 400 X10*3/uL [facility] Mean Platelet Volume 10.2 9.4 - 12.4 fL [facility] Neutrophils Percent Auto 54.9 45 - 73 % [facility] Imm Gran Pct Auto 0.2 0.0 - 0.4 % [facility] Lymphocytes Percent Auto 26.9 20 - 40 % [facility] Monocytes Percent Auto 14.5(H) 2 - 11 % [facility] Eosinophils Percent Auto 3.0 0 - 4 % [facility] Basophils Percent Auto 0.5 0 - 2 % [facility] NRBC Pct Auto 0.0 0.0 - 0.2 /100WBC [facility] Neutrophils Absolute Auto 2.4 2.0 - 8.3 x10*3/uL [facility] Imm Gran Abs Auto 0.01 0.00 - 0.03 X10*3/uL [facility] Lymphocytes Absolute Auto 1.2 1.2 - 4.9 X10*3/uL [facility] Monocytes Absolute Auto 0.6 0.1 - 1.2 X10*3/uL [facility] Eosinophils Absolute Auto 0.1 0.0 - 0.4 X10*3/uL [facility] Basophils Absolute Auto 0.0 0.0 - 0.2 X10*3/uL [facility] NRBC Abs Auto 0.000 0.0 - 0.012 X10*3/uL [facility] 05/25/2024 11:1 8 AM EDT 05/25/2024 11:18 AM EDT us Generic External Data Provider LAB BLOOD ORDERAB LES Final Result [facility] [address] [place] [phone] * Sed Rate by Modified Isak (05/25/2024 11:18 AM EDT) Erythrocyte Sedimentation Rate 2 0 - 15 MM/HR [facility] Comment:Patients with polycy themia and many hemoglobin abnormalitiesmay have depressed sed rates whereas patients with anemiamay have elevated sed rates. 05/25/2024 11:1 8 AM EDT 05/25/2024 11:18 AM EDT us Generic External Data Provider LAB BLOOD ORDERAB LES Final Result Performing Organization Address [facility] Co de Phone Number [facility] [address] [place] [address] [phone] * Uric acid (05/25/2024 11:18 AM EDT) Uric Acid 5.1 3.4 - 7.0 mg/dL [facility] 05/25/2024 11:1 8 AM EDT 05/25/2024 11:18 AM EDT us Generic External Data Provider LAB BLOOD ORDERAB LES Final Result Performing Organization Address [facility] de Phone Number [facility] [address] [place] [address] [phone] * US VENOUS DUPLEX LE RT (05/21/2024 2:08 PM EST) Anatomical Region Laterality Modality Abdomen Ultrasound 05/21/2024 2:08 PM EST Narrative 05/21/2024 3:17 PM EST ? [facility] ?[address] ?[place] [address] ? Ultrasound Report ? Signed ? Patient: Pelletier,Richi ?MR#: [id number] ? : 1975 ?Acct:[id number] ? Age/Sex: 48 / M ?ADM Date: 03/07/25 ? Loc: HO.US ? Attending : Elza Garza MD ? Ordering Physician: Elza Garza MD ?? Date of Service: 05/21/24 ?? Procedure(s): US venous duplex LE RT ?? Accession Number(s): [id number] ? cc: Shi Lancaster MD; Elza Garza [...] Sadler MD ??05/21/2024 03:14 PM ?? EST ? Dictated By: ?Baldomero Bennett MD ? Signed By: ?<Electronically signed by Baldomero Arriola MD in OV> ? 05/21/24 1514 ? DD/ 1408 ? TD/TT: 05/21/24 1429 ? Twisting Frame Changer: ? Procedure Note Mamadou Tamayo - 05/21/2024 [place] [address] Ultrasound Report Signed Patient: Gómez Pelletier [facility]#: [id number] : 1975Acct:[id number] Age/Sex: 48 / MADM Date: 05/21/24 Loc: HO.US Attending Dr: Elza Garza MD Ordering Physician: Elza Garza MD Date of Service: 05/21/24 Procedure(s): US venous duplex LE RT Accession Number(s): [id number] cc: Shi Lancaster MD; Elza Garza MD [...] 05/21/24 1514 DD/ 1408 TD/TT: 05/21/24 1429 Twisting Frame Changer: [facility] External Provider IMG US PROCEDURES Final Result * POCT BIENVENIDO-14 Urine Drug Screen (04/28/2024 9:36 AM EST) Barbiturate Screen, Urine Positive TCA, Urine Positive Urine Urine specimen obtained by clean catch procedure / Unknown 04/28/2024 9:36 AM EST Sosa Bergeron RN - 04/28/2024 9:36 AM EST UTOX cup Lot#[id number] Exp. 11/03/25 Internal Pass Control Shi Gage MD POINT OF CARE TEST EN TER/EDIT ORDERABLES Final Result * POCT HGB A1C (11/10/2023 1:20 PM EDT) Hemoglobin A1C 5.9 4.0 - 6.0 % QC Media Lot # [id number] Lot# Expiration Date [id number] Blood 11/10/2023 1:20 PM EDT us Shi Gage MD POINT OF CARE TEST EN TER/EDIT ORDERABLES Final Result * Hepatitis Panel, General (05/14/2023 2:15 PM EST) Pathologist [facility] Hepatitis A IgM Nonreactive Nonreactive [facility] Comment:IgM antibodies to NUNEZ V not detected; does not exclude earlyacute or recovered HAV infection. ~Hepatitis B Surface Antibody NONREACTIVE Nonreactive [facility] Comment:Nonreactive: < 8.00 mIU/mL Hepatitis B Core Antibody Nonreactive Nonreactive [facility] Hepatitis C Antibody Nonreactive Nonreactive [facility] Comment:Antibodies to HCV no t detected; does not exclude early acuteHCV infection. Hepatitis B Surface Ag Negative Negative [facility] 05/14/2023 2:15 PM EST 05/14/2023 2:15 PM EST Generic External Data Provider LAB BLOOD ORDERAB LES Final Result Performing Organization Address City/State/[facility] Co de Phone Number [facility] [address] [place] [phone] * LIPID PANEL WITH REFLEX TO DIRECT LDL (09/27/2021 3:08 PM EDT) Pathologist [facility] Cholesterol 194 mg/dL [facility] Comment: Desirable Cholesterol: ?less than 200 mg/dL Borderline High Cholesterol: ??200-239 mg/dL High Cholesterol: ? greater than 239 mg/dL HDL Cholesterol 37 mg/dL [facility] Comment: Desirable HDL: ??greater than 40 mg/dL ?? Note: This HDL assay may give artificially ? low results in patients with liver disease. LDL Cholesterol Calculated 115 mg/dl [facility] Comment: Desirable LDL: ? less [...] Alanine Aminotransferase 27 0 - 40 U/L [facility] Albumin Level 4.4 3.5 - 5.0 g/dL [facility] Alkaline Phosphatase 85 39 - 117 U/L [facility] Anion Gap 13 12 - 20 [facility] Aspartate Amino Transferase 18 5 - 37 U/L [facility] Bilirubin Total 0.4 0.0 - 1.0 mg/dL [facility] Blood Urea Nitrogen 10 9 - 16 mg/dL [facility] Calcium 9.5 8.4 - 10.2 mg/dL [facility] Carbon Dioxide 28 22 - 29 mmol/L [facility] Chloride 102 96 - 108 mmol/L [facility] Creatinine, Serum 0.92 0.5 - 1.4 mg/dL [facility] Estimated Glomerular Filt Rate >60 [facility] Comment: NOTE: ??For -Marshallese individuals, multiply the result ?by 1.210. ?? Chronic Kidney Disease: ??Estimated GFR < 60 mL/min/1.73m2 Severe Kidney Disease: ??Estimated GFR < 15 mL/min/1.73m2 Glucose Random 105 60 - 115 mg/dL [facility] Potassium 4.0 3.3 - 5.1 mmol/L [facility] Sodium 139 135 - 145 mmol/L [facility] Total Protein 7.3 6.5 - 8.0 g/dL [facility] C Reactive Protein 0.05 < or = 0.50 mg/dL [facility] 09/27/2021 3:08 PM EDT us Historical Provider HISTORICAL/NON ORDERABLE LABS Final Result [facility] [address] from Last 3 Months or Most Recently Relevant to Health Maintenance [facility] C[facility] D[facility] MEDICAID STAND ADULT Care Teams Timber Girdler Relationship Specialty Start Date End Date Shi Lancaster MD [address] [place] [address] PCP - General Family Medicine [facility]
--- OUTSIDE RECORDS SUMMARY | 2024-05-25 13:31 | XMS_ITS | Encounter Summary ---
Author Organization [employer] Address [address] [facility] [address] [place] [address] Care Team Providers Care Electrical Equipment Tester Name Role Phone Shi Lancaster MD Primary Care Provide r Reason for Visit * Reason Onset Date Comments Med Refill 01/11/2024 Encounter Details Date Type Department Care Team ([facility] st Contact Info) Description 01/11/2024 Refill [facility] [address] [place] [address] Shi Lancaster MD [address] [place] [address] Primary hypertension Social History Tobacco Use Types [...] 05/27/2024 9:00 AM EDT Clinical Support [facility] [address] [place] [address] Sosa Horan RN documented as of this encounter Visit Diagnoses Diagnosis Primary hypertension Unspecified essential hypertension documented in this encounter Additional Health Concerns Assessment Noted Time PHQ-9 Depression Total Score: 0 08/01/19 23 11:32 AM EDT documented as of this encounter Care Teams Electrical Equipment Tester Relationship Specialty Start Date End Date Shi Lancaster MD [address] [place] [address] PCP - General Family Medicine 11/26/17 [facility] 01/03/24 documented as of this encounter
== END 2024-05-25 10:57 | disposition home or self-care (01) ==
LOC: HO.LAB 10:56
PROVIDERS: PCP Internal Medicine; Visit Provider Student in an Organized Health Care Education/Training Program
DX: M05.9 Rheumatoid arthritis with rheumatoid factor, unspecified (principal); M1A.9XX1 Chronic gout, unspecified, with tophus (tophi)
CPT/HCPCS: 36415; 80053; 84550; 85025; 85652; 86140

== ENCOUNTER 2024-05-26 13:55 | Emergency (ER) | payer MEDICAID, SELFPAY ==
--- NOTE | ~2024-05-26 | XR_ITS ---
EXAMINATION: XR FINGER, LEFT CLINICAL INFORMATION: trauma COMPARISON: September 27, 2021. TECHNIQUE: PA and oblique and lateral views of the left fourth digit.. FINDINGS: No acute cortical disruption or malalignment. No lytic or blastic lesions. No metallic or radiopaque foreign body. XR/XR finger LT min 2V IMPRESSION: No acute fracture or dislocation, fourth digit. Electronically signed by: Baldomero Sadler MD 05/26/2024 03:46 PM EDT
[2024-05-26 14:17] VITALS: BP 147/87; PULSE 116; RESP 16; TEMP 36.6; O2SAT 98; BMI 44.2
--- NOTE | 2024-05-26 14:19 | ED_ITS ---
HPI - General Adult General Chief complaint: Wound/Laceration Stated complaint: Finger Lac L Hand Related Data Home Medications ?Medication ?Instructions ?Recorded ?Confirmed phenytoin sodium extended 100 mg 200 mg PO TID 02/07/20 05/19/24 capsule (Dilantin Extended) phenobarbital 97.2 mg tablet 194.4 mg PO BEDTIME 03/28/21 05/19/24 pantoprazole 40 mg tablet,delayed 40 mg PO DAILY@0630 10/24/21 05/19/24 release diclofenac sodium 1 % topical gel 4 g topical QID PRN arthritis pain 03/03/22 05/19/24 (Voltaren Arthritis Pain) losartan 100 mg tablet 100 mg PO DAILY 08/26/22 05/19/24 hydrochlorothiazide 12.5 mg tablet 12.5 mg PO DAILY 12/09/22 05/19/24 sumatriptan succinate 100 mg tablet 100 mg PO DIRECTED PRN migraines 12/09/22 05/19/24 allopurinol 100 mg tablet 100 mg PO BEDTIME 09/12/23 05/19/24 Previous Rx's ?Medication ?Instructions ?Recorded cyclobenzaprine 10 mg tablet 10 mg PO Q8H #20 tabs 07/26/20 cane #1 ea 02/01/21 apixaban 5 mg tablet (Eliquis) 5 mg PO BID #60 tabs 07/21/23 walker #1 ea 11/25/23 colchicine 0.6 mg tablet 0.6 mg PO BID #180 tabs 12/04/23 acetaminophen 325 mg tablet 650 mg (2 x 325 mg) PO Q6H PRN 01/02/24 Pain, Mild (Pain Scale 1-3), fever or headache 30 days #240 tabs allopurinol 300 mg tablet 600 mg (2 x 300 mg) PO DAILY #180 01/06/24 tabs oxycodone 5 mg tablet 5 mg PO Q8H PRN Pain, 02/09/24 Moderate(Pain Scale 4-6) 7 days #21 tabs gabapentin 100 mg capsule 200 mg (2 x 100 mg) PO BID #120 02/17/24 caps tocilizumab 162 mg/0.9 mL 162 mg (0.9 mL) subcut QWEEK #3.6 02/24/24 subcutaneous pen injector (Actemra mL ACTPen) alfuzosin 10 mg tablet,extended 10 mg PO DAILY #90 tabs 04/07/24 release 24 hr prednisone 5 mg tablet 5 mg PO DAILY #90 tabs 04/20/24 Allergies Allergy/AdvReac Type Severity Reaction Status Date / Time celecoxib Allergy Severe Anaphylaxis Verified 05/26/24 14:19 Sulfa (Sulfonamide Allergy Severe DIFFICULTY Verified 05/26/24 14:19 Antibiotics) BREATHING, [SULFA (SULFONAMIDE RASH, ANTIBIOTICS)] rash, hypertension PMFSH Past Medical History Medical History Arthritis GERD (gastroesophageal reflux disease) On anticoagulant therapy Spinal stenosis of lumbar region at multiple levels Screening examination for infectious disease Chronic tophaceous gout Right leg DVT Rheumatoid arthritis Tachycardia Lumbar radiculopathy HTN (hypertension) Rheumatoid arthritis Sleep apnea History of epilepsy Surgical History History of knee replacement Hx of exploratory laparotomy Hx of bariatric surgery History of spinal surgery Family History Family History Maternal Uncle Colon cancer Paternal Aunt Breast cancer Mother Pacemaker Sister Pacemaker Social History Social History Household Members: Spouse Housing: Apartment Are you a primary respiratory care instructor to a significant other at home: No Do you presently have visiting nurse or other home services: No Alcohol intake: never Comment: bathroom Patient Tobacco Use Status: Never used Tobacco e-Cigarette/Vaping Use: Never Used Advance Directives: No Advance Directives Information Provided: No Do you have a plan to hurt others: No Plan service: No Current occupational status: disabled Physical Exam ED Vital Signs: Vital Signs - 24 hr 05/26/24 14:17 Temperature 98 F Pulse Rate 116 H Respiratory Rate 16 Blood Pressure 147/87 H Pulse Oximetry 98 Oxygen Delivery Method Room Air BMI result Body Mass Index 44.2 Course Course Course Narrative: RME, this is a rapid medical exam performed by Jon Wasserman please refer to primary provider for complete H&P- 48-year-old male presents for evaluation of a laceration to left 4th finger. He accidentally cut his finger while cutting chicken. He was on Eliquis for history of DVT. On exam there is a small avulsion injury to the distal fingertip on the dorsal surface including the nail plate. Plan for x-ray to rule out osseous injury Discharge Plan Discharge Clinical Impression: Finger laceration Patient Disposition: Left W/O Completing Treatment Prescriptions: No Action (DME) cane Device See Rx Instructions .Route Qty: 1 0RF Rx Instructions: As directed Eliquis 5 mg tablet 5 mg PO BID Qty: 60 5RF (DME) walker Misc See Rx Instructions .ROUTE .MEDSUPPLY Qty: 1 0RF Rx Instructions: Folding front wheeled walker colchicine 0.6 mg tablet 0.6 mg PO BID Qty: 180 1RF allopurinol 300 mg tablet 600 mg PO DAILY Qty: 180 2RF oxycodone 5 mg tablet 5 mg PO Q8H PRN (Reason: Pain, Moderate(Pain Scale 4-6)) 7 Days Qty: 21 0RF Rx Instructions: Partial Fill upon patient request. gabapentin 100 mg capsule 200 mg PO BID Qty: 120 3RF Actemra ACTPen 162 mg/0.9 mL pen injector 162 mg subcut QWEEK Qty: 3.6 2RF alfuzosin 10 mg tablet extended release 24 hr 10 mg PO DAILY Qty: 90 0RF Rx Instructions: administer after the same meal each day prednisone 5 mg tablet 5 mg PO DAILY Qty: 90 1RF phenytoin sodium extended [Dilantin Extended] 100 mg Capsule 200 mg PO TID phenobarbital 97.2 mg tablet 194.4 mg PO BEDTIME cyclobenzaprine 10 mg tablet 10 mg PO Q8H Qty: 20 0RF diclofenac sodium [Voltaren Arthritis Pain] 1 % gel 4 g topical QID PRN (Reason: arthritis pain) Rx Instructions: apply to hands, single knee, ankle, foot; for foot includes sole/toes/top of foot acetaminophen 325 mg Tablet 650 mg PO Q6H PRN (Reason: Pain, Mild (Pain Scale 1-3), fever or headache) 30 Days Qty: 240 0RF pantoprazole 40 mg tablet,delayed release (DR/EC) 40 mg PO DAILY@0630 hydrochlorothiazide 12.5 mg tablet 12.5 mg PO DAILY sumatriptan succinate 100 mg tablet 100 mg PO DIRECTED PRN (Reason: migraines) losartan 100 mg tablet 100 mg PO DAILY allopurinol 100 mg tablet 100 mg PO BEDTIME Rx Instructions: To be taken with the twice a day with two 300 mg allopurinol tablets -total daily dose 800 mg Discharge Date/Time: 05/26/24 20:30
== END 2024-05-26 20:30 | disposition left against medical advice (07) ==
LOC: HO.ED 20:27
PROVIDERS: Emergency Provider Emergency Medicine; PCP Internal Medicine
DX: M79.642 Pain in left hand (principal); S61.315A Laceration without foreign body of left ring finger with damage to nail, initial encounter; W26.0XXA Contact with knife, initial encounter; Y93.9 Activity, unspecified; Y92.9 Unspecified place or not applicable; Y99.9 Unspecified external cause status
CPT/HCPCS: 73140; 99281; 99283

== ENCOUNTER → 2024-05-26 14:24 | Outpatient (BNV) | payer MEDICAID, SELFPAY | PROVIDERS: PCP Internal Medicine; Visit Provider Radiology Diagnostic Radiology | DX: S61.215A Laceration without foreign body of left ring finger without damage to nail, initial encounter (principal) | CPT/HCPCS: 73140 ==

== ENCOUNTER 2024-10-06 12:35 | Outpatient (AMB) | payer MEDICAID, SELFPAY ==
[2024-10-06 12:51] VITALS: BP 136/72; PULSE 106; O2SAT 98; BMI 43.1
--- NOTE | 2024-10-06 12:51 | A.OFFVIS_ITS ---
Vital Signs 10/06/24 12:51 Height 5 ft 11 in Weight 309 lb 4.937 oz BMI 43.1 BP 136/72 Blood Pressure Location Lt brachial Position Sitting Pulse 106 H Pulse Source Pulse Oximeter Pulse Oximetry (%) 98 Oxygen Delivery Method Room Air Intake Visit Reasons: Gout/RA Intake Note: Patient presents for follow up on gout and lab review. Patient states that when he gets out of here, may go to ED because he is in a lot of pain today. 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 Allergies celecoxib Allergy (Severe, Verified 10/06/24 12:57) Anaphylaxis Sulfa (Sulfonamide Antibiotics) (SULFA (SULFONAMIDE ANTIBIOTICS)) Allergy (Severe, Verified 10/06/24 12:57) DIFFICULTY BREATHING, RASH, rash, hypertension Medication List - Last Reconciled 10/06/24 by Rosalind Bloom MD allopurinol 100 mg PO BID allopurinol 600 mg (2 x 300 mg) PO DAILY apixaban (Eliquis) 5 mg PO BID cane As directed colchicine 0.6 mg PO BID cyclobenzaprine 10 mg PO Q8H diclofenac sodium 1% (Voltaren Arthritis Pain) 4 grams topical QID PRN gabapentin 200 mg (2 x 100 mg) PO BID hydrochlorothiazide 12.5 mg PO DAILY losartan 100 mg PO DAILY oxycodone 5 mg PO Q8H PRN 7 days pantoprazole 40 mg PO DAILY@0630 phenobarbital 194.4 mg PO BEDTIME phenytoin sodium extended (Dilantin Extended) 200 mg PO TID sumatriptan succinate 100 mg PO DIRECTED PRN tocilizumab (Actemra ACTPen) 162 mg (0.9 mL) subcut QWEEK walker Folding front wheeled walker HPI Comments Details: Patient is a 48 year old male with GERD, HTN, history of DVT, tophaceous gout and RA here today for follow up Interval History: Patient last seen 02/2024 - Allopurinol 700 mg daily, colchicine 0.6 mg Twice daily, prednisone 5 mg daily and Actemra injection once weekly. - - s/p right knee replacement 01/2024, recovered uneventfully and doing physical therapy - No complaints today - Plan was to stop the prednisone Today, - Complaining of fatigue especially with exertion - Feels like the medication is not working: feels pain in his back, legs, and shoulder - Back pain. Known to have degenerative disc disease. Pain has gotten worse in the past 3 months and he is concered - Also complaining of a rash in his back. Stated that he has had it for a long time but its getting worse - No gout flares since the last visit Rheumatologic History: RA Enbrel 2012-to April 2018 active disease on exam Humira April 2018-January 2021 active disease on exam Kevzara January 2021-present -placed on hold 03/06/2022 due to hospital admission for potential infection of the left elbow, final diagnosis olecranon gouty bursitis. The subsequent DMARD treatment for RA stopped. The patient was treated for tophaceous gout Kevzara restarted 05/2023 not effective Actemra 09/2023 effective Gout 02/2022: MSU crystals in aspirate of left olecranon 02/2022 Started on allopurinol, colchicine, prednisone 08/20/2022 Canakinumab added for acute gout prevention - stopped at some point (unsure of when) Current Rheumatology Medication(s): Allopurinol 700mg daily Colchicine 0.6mg bid Actemra 162mg every 2 weeks [facility] Medical History Arthritis GERD (gastroesophageal reflux disease) On anticoagulant therapy Spinal stenosis of lumbar region at multiple levels Screening examination for infectious disease Chronic tophaceous gout Right leg DVT Rheumatoid arthritis Tachycardia Lumbar radiculopathy HTN (hypertension) Rheumatoid arthritis Sleep apnea History of epilepsy Surgical History History of knee replacement Hx of exploratory laparotomy Hx of bariatric surgery History of spinal surgery Family History Maternal Uncle Colon cancer Paternal Aunt Breast cancer Mother Pacemaker Sister Pacemaker Social History Household Members: Spouse Housing: Apartment Are you a primary multi care technician to a significant other at home: No Do you presently have visiting nurse or other home services: No Alcohol intake: never Comment: bathroom Patient Tobacco Use Status: Never used Tobacco e-Cigarette/Vaping Use: Never Used service: No Current occupational status: disabled Review of Systems Const Details: Review of Systems Constitutional: Denies fever, chills, weight loss ENT: Denies vision changes, eye pain or eye redness, dental caries, dry mouth GI: Denies nausea, vomiting, diarrhea, abdominal pain, change in BM Pulm: Denies SOB, WOO, hemoptysis, wheezing Cards: Denies chest pain, palpitations Skin: Denies Raynaud's, rash, nail changes, photosensitivity, 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 Well appearing Sitting in chair Uncomfortable due to pain MSK Hands * Able to make a fist with bilateral hands but noted tenderness to palpation of the MCPs and PIPs without swelling. Wrists * Right Wrist: Decreased ROM. TTP * Left Wrist: Full ROM. TTP Elbows * Right Elbow: Full ROM. No swelling or TTP. No TTP of the medial and lateral epicondyles * Left Elbow: Full ROM. No swelling or TTP. No TTP of the medial and lateral epicondyles Shoulders * Right shoulder: Decreased ROM. * Left shoulder: Decreased ROM. Knees * Surgical incision noted over the right knee. SKIN Ptyriasis versicalor over the back Vital Signs: Last Vital Signs Pulse 106 H 10/06/24 12:51 BP 136/72 10/06/24 12:51 Pulse Ox 98 10/06/24 12:51 Oxygen Delivery Method Room Air 10/06/24 12:51 BMI result Body Mass Index 43.1 Results Reviewed Results Reviewed: Laboratory Tests 05/25/24 11:18 WBC 4.4 L RBC 4.30 L Hgb 14.5 Hct 41.4 L Plt Count 168 ESR 2 Sodium 139 Potassium 3.4 Chloride 103 Carbon Dioxide 29 BUN 11 Creatinine 0.84 Uric Acid 5.1 AST 19 ALT 35 C-Reactive Protein < 0.10 Lumbar MRI 05/2022 FINDINGS: VERTEBRAL BODIES AND PARASPINAL STRUCTURES: There is a mild levoscoliosis. There is a mild retrolisthesis of L2 on L3. There is multilevel narrowing of intervertebral disc height, most severe at L2-L3. There are multilevel degenerative endplate contour changes. Fatty endplate signal changes are seen at T11-T12. There are edematous endplate signal changes with enhancement at L2-L3, most prominent toward the left. There are prominent right-sided flowing osteophytes at T11-T12 and T12-L1. There are no acute fractures and vertebral body heights are maintained. There are Schmorl's nodes at adjacent endplates at multiple levels. Overall, marrow signal is slightly heterogenous. There are sequelae of laminectomies at L1-L2 and L2-L3. There is a small cyst at the midpole of the left kidney anteriorly. The infrarenal abdominal artery is slightly tortuous but no aneurysm is demonstrated. The visualized pelvic structures are unremarkable. CONUS MEDULLARIS AND CAUDA EQUINA: Normal, terminating at the level of L1. The lower thoracic spinal cord has normal signal and there is no abnormal enhancement. The filum terminale appears normal. There is crowding of the cauda equina nerve roots from central stenosis at multiple levels. There is no abnormal enhancement of the cauda equina nerve roots. SPINAL LEVELS: T12-L1: There is mild bilateral facet arthropathy. Disc contour is normal. There is no central stenosis or foraminal narrowing. L1-L2: There are sequelae of bilateral laminectomies, and is mild facet arthropathy. There is a central and left-sided disc protrusion, extruding into the left subarticular recess with marked narrowing, and with increased mass effect on the thecal sac compared to prior imaging. There is impingement on the traversing left L2 nerve root. There is no foraminal nerve root impingement. There is moderate to severe central stenosis on the current study. L2-L3: There are sequelae of bilateral laminectomies. There is moderate to severe facet arthropathy, increased on the right compared to prior imaging. There is a broad-based posterior disc protrusion with extrusion behind the body of L2 in the midline, similar compared to prior imaging. There is marked narrowing of the bilateral subarticular recesses with impingement on the traversing L3 nerve roots. There is severe central stenosis. There are bilateral foraminal disc protrusions without definite exiting nerve root impingement. L3-L4: There is moderate to severe bilateral facet arthropathy. There is a broad-based posterior disc protrusion with an extruded component extending behind the body of L4 centrally and to the right of midline, which is more prominent compared to prior imaging, and there is now severe compression of the thecal sac with severe central stenosis. There is narrowing of the bilateral subarticular recesses. There are right greater than left foraminal disc protrusions without definite exiting nerve root impingement. L4-L5: There is moderate to severe bilateral facet arthropathy with ligamenta flava hypertrophy. There is a central and left-sided disc protrusion extending into the left neural foramen and far laterally with impingement on the exiting and extraforaminal left L4 nerve root. On the right there is a disc protrusion with an annular tear extending far laterally with impingement on the extraforaminal right L4 nerve root, similar compared to prior imaging. There is marked narrowing of the left subarticular recess, and there is mild to moderate central stenosis. These findings have progressed compared to prior imaging. L5-S1: There is markedly severe left and severe right facet arthropathy. There is a posterior disc protrusion with an annular fissure which is most prominent centrally and toward the left extending into the left neural foramen with impingement on the exiting left L5 nerve root. There is narrowing of the left subarticular recess with impingement on the traversing left S1 nerve root. There is minimal central stenosis. MR/MR lumbar spine wo/w con IMPRESSION: 1. At L1-L2 there are sequelae of bilateral laminectomies. There is a central and left-sided disc protrusion/extrusion with increased mass effect on the thecal sac compared to prior imaging. There is impingement on the traversing left L2 nerve root. There is moderate to severe central stenosis on the current study. 2. At L2-L3 there are sequelae of bilateral laminectomies. There is a broad-based posterior disc protrusion/extrusion, similar compared to prior imaging. There is marked narrowing of the bilateral subarticular recesses with impingement on the traversing L3 nerve roots. There is severe central stenosis. 3. At L3-L4 there is facet arthropathy and there is a posterior disc protrusion/extrusion, more prominent compared to prior imaging. There is now severe compression of the thecal sac with severe central stenosis. 4. At L4-L5 there is facet arthropathy. There is a central and left-sided disc protrusion extending into the left neural foramen and far laterally with impingement on the exiting and extraforaminal left L4 nerve root. A right-sided disc protrusion extends far laterally with impingement on the extraforaminal right L4 nerve root. There is marked narrowing of the left subarticular recess and there is mild to moderate central stenosis. These findings have progressed compared to prior imaging. 5. The study redemonstrates facet arthropathy at L5-S1, with narrowing of the left neural foramen and subarticular recess with impingement on the exiting left L5 and traversing left S1 nerve roots. Assessment & Plan Assessment & Plan (1) Seropositive rheumatoid arthritis: Comment: Enbrel 2012-to April 2018 active disease on exam Humira April 2018-January 2021 active disease on exam Kevzara January 2021-present -placed on hold 03/06/2022 due to hospital admission for potential infection of the left elbow, final diagnosis olecranon gouty bursitis. The subsequent DMARD treatment for RA stopped. The patient was treated for tophaceous gout Kevzara restarted 05/2023 not effective Actemra 09/2023 effective Code(s): M05.9 - Rheumatoid arthritis with rheumatoid factor, unspecified Category: Medical Plan: #RA Patient is a 48-year-old male with seropositive rheumatoid arthritis here today for follow up. His pain seems to be coming off from his back with radicular symptoms however he did have tenderness to palpation of the MCPs and PIPs and so she may have some underlying rheumatoid arthritis activity. I think we will do a prednisone taper and then follow up in 6 weeks to see if there was any benefit from this. Plan - Prednisone : Take 15mg for 10 days then 10mg for 10 days then 5mg for 10 days and stop - Continue Actemra 162mg SC weekly - Labs today: CBC, CMP, ESR, CRP, lipid panel, uric acid - RTC 6 weeks (2) Chronic tophaceous gout: Comment: 02/2022: MSU crystals in aspirate of left olecranon 02/2022 Started on allopurinol, colchicine, prednisone 08/20/2022 Canakinumab added for acute gout prevention Code(s): M1A.9XX1 - Chronic gout, unspecified, with tophus (tophi) Category: Medical Plan: #Gout Patient with chronic tophaceous gout currently in remission on allopurinol and colchicine Given that the patient is in such exquiste pain today we will not taper any medications today (3) Lumbar spondylosis: Code(s): M47.816 - Spondylosis without myelopathy or radiculopathy, lumbar region Plan: #Lumbar pain Patient with a history of lumbar degenerative disease status post surgery now with acute on chronic back pain. We will send to the ED to be further evaluated as there could be concerns of hardware shift or other Myelopathies (4) Pityriasis versicolor: Code(s): B36.0 - Pityriasis versicolor Plan: #Pityriasis veriscolor Topical terbinafine 1% bid x 2 weeks (5) Encounter for monitoring allopurinol therapy: Code(s): Z51.81 - Encounter for therapeutic drug level monitoring; Z79.899 - Other fpc (current) drug therapy Plan: #Long-term Current Use of Allopurinol Risks and benefits of allopurinol discussed with patient Benefits include decreased gout flares, remission of gout and reduction of tophi Risks include allopurinol hypersensitivity syndrome which is a severe cutaneous adverse reaction associated with allopurinol use particularly in patients who are HLA [id number] positive, increased transaminases, GI upset including diarrhea, nausea and vomiting, and other dermatologic manifestations. (6) On colchicine therapy: Code(s): Z79.899 - Other terminal operations manager (current) drug therapy Plan: #Long-term use of colchicine Risks and benefits of long-term colchicine for the management of this patient's gout discussed with patient. Benefits include reduced occurrence of flares while we titrate and regulate his uric acid on allopurinol and other uric acid lowering medications. ? Risks include worsening myalgias especially if on statins and GI upset including diarrhea (7) Encounter for monitoring tocilizumab therapy: Code(s): Z51.81 - Encounter for therapeutic drug level monitoring; Z79.620 - FDC (current) use of immunosuppressive biologic Plan: #Long-term Use of IL 6 Inhibitors: Tocilizumab/Sarilumab Discussed the risks and benefits of IL6 inhibitors with the management of this patient's rheumatic condition. Benefits include decreased pain, improved mortality, improved quality of life Risks include LFT abnormalities, elevated triglycerides, GI perforations Contraindicated in a patient with history of diverticulitis Monitoring: CBC, CMP, triglycerides Plan I spent 40 minutes reviewing the record and labs, taking a history, examining the patient, discussing the treatment plan, ordering diagnostic work up, and documenting in the medical record Orders: Orders Complete Blood Count Auto Diff Today M05.9 - Rheumatoid arthritis with rheumatoid factor, unspecified Erythrocyte Sedimentation Rate Today M05.9 - Rheumatoid arthritis with rheumatoid factor, unspecified Uric Acid Today M1A.9XX1 - Chronic gout, unspecified, with tophus (tophi) Comprehensive Met. Panel Today M05.9 - Rheumatoid arthritis with rheumatoid factor, unspecified C Reactive Protein Today M05.9 - Rheumatoid arthritis with rheumatoid factor, unspecified Lipid Panel Today M05.9 - Rheumatoid arthritis with rheumatoid factor, unspecified Medications: New terbinafine HCl 1% (Antifungal (terbinafine)) 1 appl topical BID 30 grams 5RF 15 days B36.0 - Pityriasis versicolor prednisone Take 3 tablets for 10 days then 2 tablets for 10 days then 1 tablet for 10 days then stop 5 mg PO DIRECTED 60 tabs 0RF M05.9 - Rheumatoid arthritis with rheumatoid factor, unspecified Discontinued oxycodone Partial Fill upon patient request. Discontinued Reason: Patient Completed Course 5 mg PO Q8H 7 days PRN 21 tabs 0RF Pain, Moderate(Pain Scale 4-6) Coding Level of Care Code Est Pt Level 5 (63161) Complex EM visit Add On G2211 Diagnoses Seropositive rheumatoid arthritis M05.9 Chronic tophaceous gout M1A.9XX1 Lumbar spondylosis M47.816 Pityriasis versicolor B36.0 Encounter for monitoring allopurinol therapy Z51.81; Z79.899 On colchicine therapy Z79.899 Encounter for monitoring tocilizumab therapy Z51.81; Z79.620
--- OUTSIDE RECORDS SUMMARY | 2024-10-06 13:00 | XMS_ITS | Clinical Summary ---
Author Organization [facility] Address [id number] [place] [id number] Care Team Providers Care Firer Watertender Name Role Phone Shi Lancaster MD Primary [...] DX:Chron ic tophaceous gout Right leg DVT (CMS/HCC V24, CMS/HCC V28) DX:Right leg DVT (HCC) Rheumatoid arthritis (CMS/HC C V24, CMS/HCC V28) DX:Rheumatoid arthritis (HCC ) Supraventricular tachycardia (CMS/HCC V24) DX:Supraventricular tachycardia (HCC) Lumbar radiculopathy DX:Lumbar r [...] 2023 03/07/2023, 05/18/2021, 06/28/2020, Additional history exists Depression Screening 03/17/2024 Influenza Vaccine (#1) 2024 , 01/29/2021, 04/03/2020, Additional history exists Hepatitis [...] age to complete this topic Meningococcal B Vaccine Aged Out No l onger eligible based on patient's age to complete this topic Pneumococcal Vaccine: Pediatrics (0 to 5 Years) and At-Risk Patients (6 to 49 Years) Aged Out No longer eligible based on patient's age to complete this topic RSV Immunization Patients Under 20 months Aged Out No longer eligible based on patient's age to complete this topic Varicella Vaccines Aged Out No longer eligible based on patient's age to complete this topic Advance Directives Documents on File Type Date Recorded Patient Pot Puncher Expl anation Health Care Decision (hx) 10/17/2015 AD HERNANDEZ DIRECTIVE Health Care Decision (hx) 10/17/2015 AD HERNANDEZ DIRECTIVE Care Teams Firer Watertender Relationship Specialty Start Date End Date Shi Lancaster MD [address] [place] [phone] PCP - General 03/11/23
--- OUTSIDE RECORDS SUMMARY | 2024-10-06 13:00 | XMS_ITS | Encounter Summary ---
Author Organization [employer] Address [address] [place] [address] Care Team Providers Care Collision Technician Name Role Phone Shi Lancaster MD Primary Care Provide r Reason for Visit * Reason Onset Date Comments Med Refill 01/03/2024 Postop pain 01/03/2024 Encounter Details Date Type Department Care Team ([facility] st Contact Info) Description 01/03/2024 Refill [facility] [address] [place] [address] Shi Lancaster MD [address] [place] [address] Seropositive rheumatoid arthritis (CMS/HCC); Primary osteoarthritis of [...] EDT TC to patient, interpretation provided by [facility] expert medical writer, pt had his R TKA procedure done 12/31/23. Reviewed with patient to speak with his surgeon for his post op pain medication needsand to call PCP once surgeon is no longer prescribing his pain medication. Pt stated he will. documented in this encounter Plan of Treatment Upcoming Encounters Date Type Department Care Team (Late st Contact Info) Description 12/02/2024 10:00 AM EDT Clinical Support [facility] [address] [place] [address] Sosa Horan, RN documented as of this encounter Visit Diagnoses Diagnosis Seropositive rheumatoid arthritis ([facility]) Primary osteoarthritis of right knee documented in this encounter Additional Health Concerns Assessment Noted Time PHQ-9 Depression Total Score: 0 08/01/19 23 11:32 AM EDT documented as of this encounter Care Teams Collision Technician Relationship Specialty Start Date End Date Shi Lancaster MD [address] [place] [address] PCP - General Family Medicine 11/26/17 [facility] 01/03/24 documented as of this encounter
== END 2024-10-06 14:06 | disposition home or self-care (01) ==
LOC: HO.RHE 12:36
PROVIDERS: PCP Internal Medicine; Visit Provider Student in an Organized Health Care Education/Training Program
DX: M05.79 Rheumatoid arthritis with rheumatoid factor of multiple sites without organ or systems involvement (principal); M1A.9XX1 Chronic gout, unspecified, with tophus (tophi); M47.816 Spondylosis without myelopathy or radiculopathy, lumbar region; B36.0 Pityriasis versicolor; Z51.81 Encounter for therapeutic drug level monitoring; Z79.899 Other long term (current) drug therapy; Z79.620 Long term (current) use of immunosuppressive biologic
CPT/HCPCS: 99215

== ENCOUNTER → 2024-10-06 12:35 | Outpatient (BNVA) | payer MEDICAID, SELFPAY | PROVIDERS: PCP Internal Medicine; Visit Provider Student in an Organized Health Care Education/Training Program | DX: M05.9 Rheumatoid arthritis with rheumatoid factor, unspecified (principal); M1A.9XX1 Chronic gout, unspecified, with tophus (tophi); M47.816 Spondylosis without myelopathy or radiculopathy, lumbar region; B36.0 Pityriasis versicolor; Z51.81 Encounter for therapeutic drug level monitoring; Z79.620 Long term (current) use of immunosuppressive biologic; Z79.899 Other long term (current) drug therapy | CPT/HCPCS: 99212 ==

== ENCOUNTER 2024-10-06 14:24 | Emergency (ER) | payer MEDICAID, SELFPAY ==
--- NOTE | ~2024-10-06 | XR_ITS ---
EXAMINATION: XR LUMBOSACRAL SPINE CLINICAL INFORMATION: severe pain COMPARISON: None available. TECHNIQUE: Three views of the lumbosacral spine. FINDINGS: There are clips in the left upper quadrant. There are 5 non-rib bearing lumbar segments. Vertebral body height and alignment is preserved. Multilevel degenerative changes with bridging osteophytes and nonbridging osteophytes are again noted, more advanced in the upper lumbar spine. XR/XR lumbar spine 2-3V IMPRESSION: There are changes consistent with diffuse idiopathic skeletal hyperostosis (DISH) Degenerative changes are stable to slightly increased. No acute abnormality. Electronically signed by: Anthony Bolden MD 10/06/2024 03:22 PM EDT
--- NOTE | 2024-10-06 14:59 | ED_ITS ---
HPI - General Adult General Chief complaint: Back Pain/Injury Stated complaint: Lower back Pain Time Seen by Provider: 10/06/24 18:54 Source: patient Limitations: language barrier History of Present Illness ED Provider: Dr. Mani Herr HPI narrative: 48yo male with past medical history of obesity, rheumatoid arthritis, osteoarthritis, gout, hypertension, GERD, epilepsy, right DVT 2 years ago on Eliquis, status post right total knee replacement today who presents emergency department for evaluation of lower back pain. Patient states he has chronic lower back pain. He states the pain of the last 4 days has gotten worse in his currently 12/24. He has difficulty describing the pain but he states the pain is worse with movement. Patient states that he has numbness and weakness in his low his extremities which is chronic and unchanged. Patient states that he size certified alcohol and drug counselor today who told him that he has severe arthritis in his back and was sent to the emergency department for evaluation. Patient states that he was taking his usual pain medications which include cyclobenzaprine, Tylenol, allopurinol, colchicine, prednisone and oxycodone with no relief of his pain. Patient denied fever, chills, nausea, vomiting, loss of bowel or bladder control The patient did see his certified alcohol and drug counselor, Gregorio Bloom today at 12:51 hours. I did review the note. Patient did complain of worsening pain but also had tenderness to palpation of the MCP and PIP joints suggesting that he may have a flare-up of his rheumatoid arthritis. Patient was started on prednisone taper course to see if this would benefit his rheumatoid arthritis. Related Data Home Medications ?Medication ?Instructions ?Recorded ?Confirmed phenytoin sodium extended 100 mg 200 mg PO TID 0 10/06/24 capsule (Dilantin Extended) phenobarbital 97.2 mg tablet 194.4 mg PO BEDTIME 03/2810/06/24 pantoprazole 40 mg tablet,delayed 40 mg PO DAILY@0630 10/24/21 10/06/24 release diclofenac sodium 1 % topical gel 4 g topical QID PRN arthritis pain 03/03/22 10/06/24 (Voltaren Arthritis Pain) losartan 100 mg tablet 100 mg PO DAILY 08/26/22 hydrochlorothiazide 12.5 mg tablet 12.5 mg PO DAILY 10/06/24 sumatriptan succinate 100 mg tablet 100 mg PO DIREC LUANN PRN migraines 12/09/22 10/06/24 Previous Rx's ?Medication ?Instructions ?Recorded cyclobenzaprine 10 mg tablet 10 mg PO Q8H #20 tabs 03/06 cane #1 ea 02/01/21 apixaban 5 mg tablet (Eliquis) 5 mg PO BID #60 tabs walker #1 ea 11/25/23 allopurinol 100 mg tablet 100 mg PO BID #180 tabs 05/15 11/08 allopurinol 300 mg tablet 600 mg (2 x 300 mg) PO DAILY #180 06/01/24 tabs colchicine 0.6 mg tablet 0.6 mg PO BID #180 tabs 05/15 11/08 gabapentin 100 mg capsule 200 mg (2 x 100 mg) PO BID # 120 07/07/24 caps tocilizumab 162 mg/0.9 mL 162 mg (0.9 mL) subcut QWEEK #4 mL 08/11/24 subcutaneous pen injector (Actemra ACTPen) prednisone 5 mg tablet 5 mg PO DIRECTED #60 tabs 10/06/24 terbinafine HCl 1 % topical cream 1 appl topical BID 1 5 days #30 10/06/24 (Antifungal (terbinafine)) grams Allergies Allergy/AdvReac Type Severity Reaction Status Date / Time celecoxib Allergy Severe Anaphylaxis Verified 10/06/24 15:03 Sulfa (Sulfonamide Allergy Severe DIFFICULTY Verified 10/06/24 15:03 Antibiotics) (SULFA BREATHING, (SULFONAMIDE ANTIBIOTICS)) RASH, rash, hypertension Review of Systems 2 Review of Systems: Yes all other systems are reviewed and are negative [facility] Past Medical History Medical History Arthritis GERD (gastroesophageal reflux disease) On anticoagulant therapy Spinal stenosis of lumbar region at multiple levels Screening examination for infectious disease Chronic tophaceous gout Right leg DVT Rheumatoid arthritis Tachycardia Lumbar radiculopathy HTN (hypertension) Rheumatoid arthritis Sleep apnea History of epilepsy Surgical History History of knee replacement Hx of exploratory laparotomy Hx of bariatric surgery History of spinal surgery Family History Family History Maternal Uncle Colon cancer Paternal Aunt Breast cancer Mother Pacemaker Sister Pacemaker Social History Social History Household Members: Spouse Housing: Apartment Are you a primary adult daycare coordinator to a significant other at home: No Do you presently have visiting nurse or other home services: No Alcohol intake: never Comment: bathroom Patient Tobacco Use Status: Never used Tobacco Smoked in Last 30 Days: No e-Cigarette/Vaping Use: Never Used Use of substances other than those prescribed or required for medical reasons: No Advance Directives: No Advance Directives Information Provided: No service: No Current occupational status: disabled Physical Exam ED Vital Signs: Vital Signs - 24 hr 10/06/24 15:01 10/06/24 18:18 10/06/24 19:37 Temperature 97.4 F 97.6 F 97.4 F Pulse Rate 120 H 102 H 102 H Respiratory Rate 18 18 18 Blood Pressure 152/90 H 126/64 134/82 Pulse Oximetry 98 99 97 Oxygen Delivery Method Room Air Room Air Room Air 10/06/24 21:47 Temperature 98.8 F Pulse Rate 107 H Respiratory Rate 18 Blood Pressure 128/81 Pulse Oximetry 96 Oxygen Delivery Method Room Air BMI result Body Mass Index 44.2 Vital signs revealed an elevated heart rate of 120 and elevated blood pressure of 152/90 Exam: General: Awake, alert , appears to be in distress secondary to his pain, weight 139.7 kg, elevated BMI 44.2 kg per m2 Head: Normocephalic, atraumatic EENT: PERRL, Lids normal, sclera normal, conjunctiva normal, nose normal , ears normal, throat without erythema or exudates Neck: Supple, no adenopathy Lung: breath sounds symmetric, no wheezing, rales or rhonchi Chest: symmetric movement, nontender Heart: regular rate and rhythm, normal S1, S2 no murmurs or rubs Abdomen: soft, non-tender, nondistended, normal bowel sounds Back: Patient has tenderness palpation over the lumbar vertebrae as well as the paraspinal muscles in the lumbar sacral area bilaterally, has positive straight leg raises bilaterally Extremities: no deformities, patient's right leg is chronically larger than the left secondary to a total knee replacement, patient was able to hold in his legs up against gravity Neuro: Awake, alert, oriented, normal speech, cranial nerves intact, moves all extremities symmetrically Course Course Course Narrative: This is a rapid medical exam performed by Benny Charles NP: Additional HPI, ROS, PE not included below will be deferred to primary provider. Patient is a 48-year-old male with history of rheumatoid arthritis, epilepsy, HTN, sleep apnea, spinal stenosis, arthritis, GERD, tophaceous gout presenting to the ED with complaint of severe lower back pain. Had appointment with Dr. Bloom today, his certified alcohol and drug counselor. Sees pain management, currently prescribed oxycodone for chronic pain. Plan: xray, labs Medications Administered Discontinued Medications Generic Name Dose Route Start Last Admin Trade Name Freq PRN Reason Stop Dose Admin Diphenhydramine HCl 25 mg 10/06/24 19:16 10/06/24 19:52 Diphenhydramine Hcl 50 Mg/Ml Vial IVPUSH 10/06/24 19:17 25 mg ONCE ONE Administration Hydromorphone HCl 1 mg 10/06/24 19:16 10/06/24 19:53 Hydromorphone Hcl 1 Mg/Ml Syringe IVPUSH 10/06/24 19:17 1 mg ONCE STA Administration Protocol Hydromorphone HCl 1 mg 10/06/24 21:33 10/06/24 21:49 Hydromorphone Hcl 1 Mg/Ml Syringe IVPUSH 10/06/24 21:34 1 mg ONCE STA Administration Protocol Medical Decision Making Medical Decision Making MDM Narrative: 48yo male with past medical history of obesity, rheumatoid arthritis, osteoarthritis, gout, hypertension, GERD, epilepsy, right DVT 2 years ago on Eliquis, status post right total knee replacement today who presents emergency department for evaluation of lower back pain. Patient states he has chronic lower back pain. He states the pain of the last 4 days has gotten worse in his currently 10/10. He has difficulty describing the pain but he states the pain is worse with movement. Patient states that he has numbness and weakness in his low his extremities which is chronic and unchanged. Patient states that he size certified alcohol and drug counselor today who told him that he has severe arthritis in his back and was sent to the emergency department for evaluation. Patient states that he was taking his usual pain medications which include cyclobenzaprine, Tylenol, allopurinol, colchicine, prednisone and oxycodone with no relief of his pain. Patient denied fever, chills, nausea, vomiting, loss of bowel or bladder control. Patient was seen by his certified alcohol and drug counselor today who was concerned that you may have a flare-up Ramon's rheumatoid arthritis and was started on a prednisone tapering course. Vital signs revealed an elevated blood pressure. Physical examination revealed tenderness palpation in his lumbar vertebrae as well as as paraspinal muscles in the lumbar sacral region in his back, the patient has symmetric lower extremity strength in his neurologic exam was nonfocal. Differential diagnosis: ?Includes but is not limited to acute compression fracture, acute on chronic back pain, infectious/inflamed process, anemia, electrolyte abnormalities Course: 19:27 My interpretation patient's laboratory evaluation is as follows: WBC was normal 5300. Low platelet count a 153,000-chronic. Glucose elevated 128. CRP and ESR were normal and not elevated. Lumbar sacral spine x-ray revealed multi level degenerative changes with bridging osteophytes and non bridging osteophytes consistent with DISH. The patient's non elevated CRP and ESR reassuring. At this time I believe that the patient has a exacerbation of his chronic back pain which were not controlled by his pain medications. I ordered IV insert and Dilaudid 1 mg IV. Plan will be to try to get the patient's pain down to a tolerable level so that he can be discharged to take his pain medications as prescribed at home. 21:34 Patient states he did get minimal relief of his pain with the above treatment. Patient was given a 2nd dose of Dilaudid 1 mg IV. At the end of my shift, the patient's care was turned over to my colleague, Dr. Claudia Dobbs. 10/06/24 0452 Claudia Dobbs MD Patient states that he feels better, patient ready to go home. Admission/Observation Consideration of admission/observation: Escalation of care including admission/observation considered (Yes) Lab Data MDM Lab Attestation statement: I reviewed the patient's lab results. 10/06/24 15:21 10/06/24 15:21 Labs: Lab Results 10/06/24 Range/Units 15:21 WBC 5.3 (4.8-10.8) X10*3/uL RBC 4.45 L (4.60-5.80) X10*6/uL Hgb 15.1 (14.0-18.0) g/dl Hct 42.2 (42.0-52.0) % MCV 94.8 (80.0-98.0) fL MCH 33.9 H (27.0-33.0) pg MCHC 35.8 (31.0-36.0) g/dl RDW 12.8 (11.0-16.0) % Plt Count 153 L (160-400) X10*3/uL MPV 9.3 L (9.4-12.4) fL Immature Gran % (Auto) 0.4 (0.0-0.4) % Neut % (Auto) 69.8 (45-73) % Lymph % (Auto) 21.9 (20-40) % [place] % (Auto) 6.2 (2-11) % Eos % (Auto) 1.3 (0-4) % Baso % (Auto) 0.4 (0-2) % Lymph # (Auto) 1.2 (1.2-4.9) X10*3/uL [place] # (Auto) 0.3 (0.1-1.2) X10*3/uL Eos # (Auto) 0.1 (0.0-0.4) X10*3/uL Baso # (Auto) 0.0 (0.0-0.2) X10*3/uL Abs Immat Gran (auto) 0.02 (0.00-0.03) X10*3/uL Absolute Neuts (auto) 3.7 (2.0-8.3) x10*3/uL Absolute Nucleated RBC 0.000 (0.0-0.012) X10*3/uL Nucleated RBC % (auto) 0.0 (0.0-0.2) /100WBC ESR 2 (0-15) MM/HR Sodium 139 (135-145) mmol/L Potassium 3.4 (3.3-5.1) mmol/L Chloride 100 (96-108) mmol/L Carbon Dioxide 29 (22-29) mmol/L Anion Gap 13 (12-20) BUN 14 (9-16) mg/dL Creatinine 0.95 (0.5-1.4) mg/dL Estim Creat Clear Calc 134.0 Estimated GFR > 60 Random Glucose 128 H (60-115) mg/dL Uric Acid 5.1 (3.4-7.0) mg/dL Calcium 10.3 H D (8.4-10.2) mg/dL Total Bilirubin 0.4 (0.0-1.0) mg/dL AST 24 (5-37) U/L ALT 39 (0-40) U/L Alkaline Phosphatase 84 (39-117) U/L C-Reactive Protein < 0.10 (< or = 0.50) mg/dL Total Protein 7.3 (6.5-8.0) g/dL Albumin 4.7 (3.5-5.0) g/dL Radiology Impression Discussion of test interpretation with radiology: I have reviewed the radiologist's reading. Radiologist Impression: EXAMINATION: XR LUMBOSACRAL SPINE CLINICAL INFORMATION: severe pain COMPARISON: None available. TECHNIQUE: Three views of the lumbosacral spine. FINDINGS: There are clips in the left upper quadrant. There are 5 non-rib bearing lumbar segments. Vertebral body height and alignment is preserved. Multilevel degenerative changes with bridging osteophytes and nonbridging osteophytes are again noted, more advanced in the upper lumbar spine. IMPRESSION: There are changes consistent with diffuse idiopathic skeletal hyperostosis (DISH) Degenerative changes are stable to slightly increased. No acute abnormality. Electronically signed by: Anthony Bolden MD 10/06/2024 03:22 PM EDT External Record Review External record reviewed: Inpatient record and Office record (Rheumatology note) Chronic Conditions Patient?s care impacted by: Other (Rheumatoid arthritis, hypertension, seizure disorder) Discharge Plan Discharge Clinical Impression: Acute exacerbation of chronic low back pain Instructions: Acute Low Back Pain (ED) Additional Instructions: Continue taking your pain medications as prescribed by your providers. Follow-up with your doctor in 2 days. Please return to the emergency department if your symptoms get worse or if you develop any symptoms that are concerning to you. Prescriptions: No Action (DME) cane Device See Rx Instructions .Route Qty: 1 0RF Rx Instructions: As directed Eliquis 5 mg tablet 5 mg PO BID Qty: 60 5RF (DME) walker Misc See Rx Instructions .ROUTE .MEDSUPPLY Qty: 1 0RF Rx Instructions: Folding front wheeled walker allopurinol 100 mg tablet 100 mg PO BID Qty: 180 1RF Rx Instructions: To be taken with the twice a day with two 300 mg allopurinol tablets -total daily dose 800 mg allopurinol 300 mg tablet 600 mg PO DAILY Qty: 180 1RF colchicine 0.6 mg tablet 0.6 mg PO BID Qty: 180 1RF gabapentin 100 mg capsule 200 mg PO BID Qty: 120 2RF Actemra ACTPen 162 mg/0.9 mL pen injector 162 mg subcut QWEEK Qty: 4 3RF phenytoin sodium extended [Dilantin Extended] 100 mg Capsule 200 mg PO TID phenobarbital 97.2 mg tablet 194.4 mg PO BEDTIME cyclobenzaprine 10 mg tablet 10 mg PO Q8H Qty: 20 0RF diclofenac sodium [Voltaren Arthritis Pain] 1 % gel 4 g topical QID PRN (Reason: arthritis pain) Rx Instructions: apply to hands, single knee, ankle, foot; for foot includes sole/toes/top of foot pantoprazole 40 mg tablet,delayed release (DR/EC) 40 mg PO DAILY@0630 hydrochlorothiazide 12.5 mg tablet 12.5 mg PO DAILY sumatriptan succinate 100 mg tablet 100 mg PO DIRECTED PRN (Reason: migraines) terbinafine HCl [Antifungal (terbinafine)] 1 % cream 1 appl topical BID 15 Days Qty: 30 5RF prednisone 5 mg tablet 5 mg PO DIRECTED Qty: 60 0RF Rx Instructions: Take 3 tablets for 10 days then 2 tablets for 10 days then 1 tablet for 10 days then stop losartan 100 mg tablet 100 mg PO DAILY Print Language: American
[2024-10-06 15:01] VITALS: BP 152/90; PULSE 120; RESP 18; TEMP 36.3; O2SAT 98; BMI 44.2
[2024-10-06 15:26] LABS: MANUAL DIFF FLAG NO
[2024-10-06 15:29] LABS: Hematocrit 42.2 % (42.0-52.0); Hemoglobin 15.1 g/dl (14.0-18.0); Imm Gran Abs Auto 0.02 X10*3/uL (0.00-0.03); Imm Gran Pct Auto 0.4 % (0.0-0.4); Lymphocytes Absolute Auto 1.2 X10*3/uL (1.2-4.9); Mean Corpuscular HGB Conc 35.8 g/dl (31.0-36.0); Mean Corpuscular Hemoglobin 33.9 pg (27.0-33.0); Mean Corpuscular Volume 94.8 fL (80.0-98.0); NRBC Abs Auto 0.000 X10*3/uL (0.0-0.012); NRBC Pct Auto 0.0 /100WBC (0.0-0.2); Platelet Count 153 X10*3/uL (160-400); Red Blood Count 4.45 X10*6/uL (4.60-5.80); White Blood Count 5.3 X10*3/uL (4.8-10.8)
[2024-10-06 15:41] LABS: Alanine Aminotransferase 39 U/L (0-40); Albumin Level 4.7 g/dL (3.5-5.0); Alkaline Phosphatase 84 U/L (39-117); Anion Gap 13 (12-20); Aspartate Amino Transferase 24 U/L (5-37); Blood Urea Nitrogen 14 mg/dL (9-16); Calcium 10.3 mg/dL (8.4-10.2); Carbon Dioxide 29 mmol/L (22-29); Chloride 100 mmol/L (96-108); Creatinine Clr Calc Pharmacy 134.0; Estimated Glomerular Filt Rate > 60; Potassium 3.4 mmol/L (3.3-5.1); Sodium 139 mmol/L (135-145); Total Protein 7.3 g/dL (6.5-8.0); Uric Acid 5.1 mg/dL (3.4-7.0)
[2024-10-06 18:18] VITALS: BP 126/64; PULSE 102; RESP 18; TEMP 36.4; O2SAT 99
[2024-10-06 19:37] VITALS: BP 134/82; PULSE 102; RESP 18; TEMP 36.3; O2SAT 97
[2024-10-06 21:47] VITALS: BP 128/81; PULSE 107; RESP 18; TEMP 37.1; O2SAT 96
[2024-10-06 23:07] VITALS: BP 128/81; PULSE 107; RESP 18; TEMP 37.1; O2SAT 96
== END 2024-10-06 23:07 | disposition home or self-care (01) ==
PROVIDERS: Registered Nurse Emergency; Emergency Provider Emergency Medicine Emergency Medical Services; PCP Internal Medicine
DX: M54.50 Low back pain, unspecified (principal); I10 Essential (primary) hypertension; Z86.718 Personal history of other venous thrombosis and embolism; Z79.01 Long term (current) use of anticoagulants; Z79.899 Other long term (current) drug therapy
CPT/HCPCS: 36415; 72100; 80053; 84550; 85025; 85652; 86140; 96374; 96375; 99284; J1171; J1200

== ENCOUNTER → 2024-10-06 15:04 | Outpatient (BNV) | payer MEDICAID, SELFPAY | PROVIDERS: PCP Internal Medicine; Visit Provider Radiology Diagnostic Radiology | DX: M51.362 Other intervertebral disc degeneration, lumbar region with discogenic back pain and lower extremity pain (principal) | CPT/HCPCS: 72100 ==

== ENCOUNTER 2024-10-11 09:55 | Outpatient (REF) | payer MEDICAID, SELFPAY ==
[2024-10-11 10:27] LABS: MANUAL DIFF FLAG NO
[2024-10-11 10:45] LABS: Hematocrit 41.8 % (42.0-52.0); Hemoglobin 15.0 g/dl (14.0-18.0); Imm Gran Abs Auto 0.02 X10*3/uL (0.00-0.03); Imm Gran Pct Auto 0.4 % (0.0-0.4); Lymphocytes Absolute Auto 1.5 X10*3/uL (1.2-4.9); Mean Corpuscular HGB Conc 35.9 g/dl (31.0-36.0); Mean Corpuscular Hemoglobin 34.7 pg (27.0-33.0); Mean Corpuscular Volume 96.8 fL (80.0-98.0); NRBC Abs Auto 0.000 X10*3/uL (0.0-0.012); NRBC Pct Auto 0.0 /100WBC (0.0-0.2); Platelet Count 163 X10*3/uL (160-400); Red Blood Count 4.32 X10*6/uL (4.60-5.80); White Blood Count 5.1 X10*3/uL (4.8-10.8)
--- OUTSIDE RECORDS SUMMARY | 2024-10-11 10:57 | XMS_ITS | Encounter Summary ---
Author Organization [employer] Address [address] [place] [address] Care Team Providers Care Regulatory Attorney Name Role Phone Shi Lancaster MD Primary Care Provide r Reason for Visit * Reason Onset Date Comments Med Refill 01/03/2024 Postop pain 01/03/2024 Encounter Details Date Type Department Care Team ([facility] st Contact Info) Description 01/03/2024 Refill [facility] [address] [place] [address] Shi Lancaster MD [address] [place] [address] Seropositive rheumatoid arthritis (CMS/HCC); Primary osteoarthritis of [...] EDT TC to patient, interpretation provided by [facility] medical technologist clinical, pt had his R TKA procedure done [...] Description 12/02/2024 10:00 AM EDT Clinical Support [facility] [address] [place] [address] Sosa Horan, RN documented as of this encounter Visit Diagnoses Diagnosis Seropositive rheumatoid arthritis ([facility]) Primary osteoarthritis of right knee documented in this encounter Additional Health Concerns Assessment Noted Time PHQ-9 Depression Total Score: 0 08/01/19 23 11:32 AM EDT documented as of this encounter Care Teams Regulatory Attorney Relationship Specialty Start Date End Date Shi Lancaster MD [address] [place] [address] PCP - General Family Medicine 11/26/17 [facility] 01/03/24 documented as of this encounter
--- OUTSIDE RECORDS SUMMARY | 2024-10-11 10:57 | XMS_ITS | Clinical Summary ---
Author Organization [facility] Address [address] [place] [id number] Care Team Providers Care Primary Products Inspectors Name Role Phone Shi Lancaster MD Primary [...] Documents on File Type Date Recorded Patient Studio Set Up Worker Expl anation Health Care Decision (hx) 10/17/2015 AD HERNANDEZ DIRECTIVE Health Care Decision (hx) 10/17/2015 AD HERNANDEZ DIRECTIVE Care Teams Primary Products Inspectors Relationship Specialty Start Date End Date Shi Lancaster MD [address] [place] [phone] PCP - General 03/11/23
[2024-10-11 11:58] LABS: Alanine Aminotransferase 39 U/L (0-40); Albumin Level 4.7 g/dL (3.5-5.0); Alkaline Phosphatase 84 U/L (39-117); Anion Gap 15 (12-20); Aspartate Amino Transferase 26 U/L (5-37); Blood Urea Nitrogen 14 mg/dL (9-16); Calcium 9.8 mg/dL (8.4-10.2); Carbon Dioxide 26 mmol/L (22-29); Chloride 102 mmol/L (96-108); Cholesterol 239 mg/dL (<200); Estimated Glomerular Filt Rate > 60; HDL Cholesterol 50 mg/dL (>40); Potassium 3.2 mmol/L (3.3-5.1); Sodium 140 mmol/L (135-145); Total Protein 7.3 g/dL (6.5-8.0); Triglycerides 192 mg/dL (<150); Uric Acid 4.2 mg/dL (3.4-7.0)
== END 2024-10-11 09:56 | disposition home or self-care (01) ==
LOC: HO.LAB 09:55
PROVIDERS: PCP Internal Medicine; Visit Provider Student in an Organized Health Care Education/Training Program
DX: M1A.9XX1 Chronic gout, unspecified, with tophus (tophi) (principal); M05.9 Rheumatoid arthritis with rheumatoid factor, unspecified
CPT/HCPCS: 36415; 80053; 80061; 84550; 85025; 85652; 86140

== ENCOUNTER 2024-10-18 10:30 | Outpatient (AMB) | payer MEDICAID, SELFPAY ==
--- NOTE | 2024-10-18 10:42 | A.OFFVIS_ITS ---
Vital Signs 10/18/24 10:43 Height 5 ft 10 in Weight 313 lb 4 oz BMI 44.9 BP 124/88 Blood Pressure Location Rt brachial Position Sitting Pulse 102 H Pulse Source Pulse Oximeter Pulse Oximetry (%) 96 Oxygen Delivery Method Room Air Intake Visit Reasons: Follow up Intake Note: Patient presents follow up KRZYSZTOF. Last seen 2022. Compliance in chart(90/90days, >=4hrs-100%, Average usage-11hr 1min, IPAP-21, EPAP-17, Med leaks-105.1, AHI- 11.4). Patient states the mask is to small and needs a larger mask. Manager Product Required: Yes Manager Product Language: Final Installer Inspector Services: Manager Product Present Manager Product Name: Nitin [id number] General Car Supervisor Yard: General Car Supervisor Yard offered & declined Accompanied by: Self / Same As Patient Allergies celecoxib Allergy (Severe, Verified 10/18/24 10:48) Anaphylaxis Sulfa (Sulfonamide Antibiotics) (SULFA (SULFONAMIDE ANTIBIOTICS)) Allergy (Severe, Verified 10/18/24 10:48) DIFFICULTY BREATHING, RASH, rash, hypertension HPI Comments Details: 48 y/o male with epilepsy disorder presents for sleep apnea follow up visit. PSG 2022 AHI 90/hr and Oxygen Ben to 79%, titration was completed and he started bipap , and less than 3 hours of sleep was recorded, sleep architecture was severely fragmented. Epilepsy disorder being followed by Dr. Lackey, and has been seizure free for 9 years with phenobarbital and phenytoin. Pt was diagnosed with sleep apnea about 10 years ago and has been using the original CPAP since then. His mask does not fit well and he has lots of leaks. He feels the CPAP does not work well, he still has non refreshing sleep and having daytime sleepiness. He falls asleep around 3 pm and takes a nap about 2-3 hrs daily. BMI is elevated 45, he is 308lb at home and has lost 42lbs and unable to walk long distance due to spinal procedure and is less active now. Uses a wheel chair and cane to ambulate as needed, has help with all his ADLS. RLS He takes gabapentin 200mg po BID, for paresthesias. He has some acute migraines takes sumatriptan 100mg po prn migraines. Mood memory and diet, are stable. [facility] Medical History Arthritis GERD (gastroesophageal reflux disease) On anticoagulant therapy Spinal stenosis of lumbar region at multiple levels Screening examination for infectious disease Chronic tophaceous gout Right leg DVT Rheumatoid arthritis Tachycardia Lumbar radiculopathy HTN (hypertension) Rheumatoid arthritis Sleep apnea History of epilepsy Surgical History History of knee replacement Hx of exploratory laparotomy Hx of bariatric surgery History of spinal surgery Family History Maternal Uncle Colon cancer Paternal Aunt Breast cancer Mother Pacemaker Sister Pacemaker Social History Household Members: Spouse Housing: Apartment Are you a primary customer care coordinator to a significant other at home: No Do you presently have visiting nurse or other home services: No Alcohol intake: never Comment: bathroom Patient Tobacco Use Status: Never used Tobacco e-Cigarette/Vaping Use: Never Used service: No Current occupational status: disabled Review of Systems ENT Reports Normal hearing present Neuro Reports Normal hearing present Physical Exam Vital Signs: Last Vital Signs Pulse 102 H 10/18/24 10:43 BP 124/88 10/18/24 10:43 Pulse Ox 96 10/18/24 10:43 Oxygen Delivery Method Room Air 10/18/24 10:43 BMI result Body Mass Index 44.9 Const General: cooperative and tired appearing Nutritional Appearance: obese Orientation/consciousness: patient oriented x3 Limitations: language barrier Eyes Pupils: Equal, round and reactive pupils present Neuro General: patient oriented x3 Cranial nerves: Yes Equal, round and reactive pupils present, Yes Bilaterally intact EOM present, Yes Normal facial strength present, Yes Midline tongue present, Yes Symmetric palate elevation present, Yes Normal hearing present, Yes Ability to bilaterally rotate head present and Yes Ability to bilaterally elevate shoulders present Cognition (Neuro): normal cognition Gait exam (Neuro): Normal gait present Motor exam (neuro): 5/5 motor strength present throughout, Pronator motor function not present and no tremor noted Psych Appearance: grossly normal Affect: normal affect Attitude: cooperative Thought process: Normal thought process present Thought content: Normal thought content present Results Reviewed Results Reviewed: September 2024 XR/XR lumbar spine 2-3V IMPRESSION: There are changes consistent with diffuse idiopathic skeletal hyperostosis (DISH) Degenerative changes are stable to slightly increased. No acute abnormality. Assessment & Plan Assessment & Plan (1) KRZYSZTOF (obstructive sleep apnea): Comment: Severe degree of sleep apnea. The AHI was 90/hr and oxygen ben was 79%. Code(s): G47.33 - Obstructive sleep apnea (adult) (pediatric) Category: Medical (2) Morbid obesity: Code(s): E66.01 - Morbid (severe) obesity due to excess calories Category: Medical (3) Lumbar radiculopathy: Code(s): M54.16 - Radiculopathy, lumbar region Category: Medical Plan KRZYSZTOF on bipap . Titration is needed, his AHI is still elevated and the pressures are smothering him. Needs an adjustment of pressures and mask fitting. Sleep hygiene provided. BMI is elevated pt is limited with regards to physical acitivities d/t back surgery. Patient Instructions: Sleep Hygiene provided: set a scheduled bedtime and wake time to help regulate the circadian rhythm and balance the release of pituitary hormones. Sleep in a dark room, temperatures below 68 degrees, and no devices n bed. Limit caffeinated products 6 hours prior to bed, and limit fluids 2-4 hours prior to bed. Gentle night yoga, diffusing essential oils, and playing soft music can be relaxing. Coding Level of Care Code Est Pt Level 4 (10859) Diagnoses KRZYSZTOF (obstructive sleep apnea) G47.33 Morbid obesity E66.01 Lumbar radiculopathy M54.16 Time Spent (min) 30
[2024-10-18 10:43] VITALS: BP 124/88; PULSE 102; O2SAT 96; BMI 44.9
--- OUTSIDE RECORDS SUMMARY | 2024-10-18 11:15 | XMS_ITS | Clinical Summary ---
Author Organization [facility] Address [id number] [place] [id number] Care Team Providers Care Wire Walker Name Role Phone Shi Lancaster MD Primary [...] Documents on File Type Date Recorded Patient Evaluation Manager Expl anation Health Care Decision (hx) 10/17/2015 AD HERNANDEZ DIRECTIVE Health Care Decision (hx) 10/17/2015 AD HERNANDEZ DIRECTIVE Care Teams Wire Walker Relationship Specialty Start Date End Date Shi Lancaster MD [address] [place] [phone] PCP - General 03/11/23
--- OUTSIDE RECORDS SUMMARY | 2024-10-18 11:15 | XMS_ITS | Encounter Summary ---
Author Organization [employer] Address [address] [place] [address] Care Team Providers Care Barrel Reamer Name Role Phone Shi Lancaster MD Primary Care Provide r Reason for Visit * Reason Onset Date Comments Med Refill 01/03/2024 Postop pain 01/03/2024 Encounter Details Date Type Department Care Team ([facility] st Contact Info) Description 01/03/2024 Refill [facility] [address] [place] [address] Shi Lancaster MD [address] [place] [address] Seropositive rheumatoid arthritis (CMS/HCC); Primary osteoarthritis of [...] EDT TC to patient, interpretation provided by [facility] medical appliance maker, pt had his R TKA procedure done [...] Description 12/02/2024 10:00 AM EDT Clinical Support [facility] [address] [place] [address] Sosa Horan, RN documented as of this encounter Visit Diagnoses Diagnosis Seropositive rheumatoid arthritis ([facility]) Primary osteoarthritis of right knee documented in this encounter Additional Health Concerns Assessment Noted Time PHQ-9 Depression Total Score: 0 08/01/19 23 11:32 AM EDT documented as of this encounter Care Teams Barrel Reamer Relationship Specialty Start Date End Date Shi Lancaster MD [address] [place] [address] PCP - General Family Medicine 11/26/17 [facility] 01/03/24 documented as of this encounter
== END 2024-10-18 11:42 | disposition home or self-care (01) ==
LOC: HO.HSMS 10:31
PROVIDERS: PCP Internal Medicine; Visit Provider Physician Assistant Medical
DX: G47.33 Obstructive sleep apnea (adult) (pediatric) (principal); E66.01 Morbid (severe) obesity due to excess calories; M54.16 Radiculopathy, lumbar region
CPT/HCPCS: 99214

== ENCOUNTER → 2024-10-18 10:30 | Outpatient (BNVA) | payer MEDICAID, SELFPAY | PROVIDERS: PCP Internal Medicine; Visit Provider Physician Assistant Medical | DX: G47.33 Obstructive sleep apnea (adult) (pediatric) (principal); Z99.89 Dependence on other enabling machines and devices; E66.01 Morbid (severe) obesity due to excess calories; M54.16 Radiculopathy, lumbar region | CPT/HCPCS: 99212 ==

== ENCOUNTER 2024-11-17 10:35 | Outpatient (AMB) | payer MEDICAID, SELFPAY ==
--- NOTE | 2024-11-17 10:42 | A.OFFVIS_ITS ---
Vital Signs 11/17/24 10:43 Height 5 ft 10 in Intake Visit Reasons: 6m/ SZ Allergies celecoxib Allergy (Severe, Verified 11/17/24 10:46) Anaphylaxis Sulfa (Sulfonamide Antibiotics) (SULFA (SULFONAMIDE ANTIBIOTICS)) Allergy (Severe, Verified 11/17/24 10:46) DIFFICULTY BREATHING, RASH, rash, hypertension Medication List - Last Reconciled 11/17/24 by Fatmata Simpson, JAVON allopurinol 100 mg PO BID allopurinol 600 mg (2 x 300 mg) PO DAILY apixaban (Eliquis) 2.5 mg PO BID cane As directed colchicine 0.6 mg PO BID cyclobenzaprine 10 mg PO Q8H diclofenac sodium 1% (Voltaren Arthritis Pain) 4 grams topical QID PRN gabapentin 200 mg (2 x 100 mg) PO BID hydrochlorothiazide 12.5 mg PO DAILY losartan 100 mg PO DAILY pantoprazole 40 mg PO DAILY@0630 phenobarbital 194.4 mg PO BEDTIME phenytoin sodium extended (Dilantin Extended) 200 mg PO TID prednisone 5 mg PO DIRECTED sumatriptan succinate 100 mg PO DIRECTED PRN terbinafine HCl 1% (Antifungal (terbinafine)) 1 appl topical BID 15 days tocilizumab (Actemra ACTPen) 162 mg (0.9 mL) subcut QWEEK walker Folding front wheeled walker HPI Comments Details: He was doing okay. No seizures. No medication side effects. No tremors. Uses sumatriptan as needed for occasional migraines which helps. Sleep was okay. Walking with walker, no falls. Had Dilantin toxicity 34.9 on 10/29/2018. Chronic low back pain is better. MRI shows multiple level disc herniation in lumbar and thoracic spine. 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 The seizures were hard to control until around 2011. EEG in 03/2012 was normal. MRI of the brain with slight frontotemporal atrophy and some left frontal areas of increased T2 and flair intensities, mostly cortical probably representing posttraumatic scarring. There are some nonspecific microvascular changes in the white matter as well. He also has advanced rheumatoid arthritis, hypertension is under control, as well as obstructive sleep apnea and obesity. He wears a nasal CPAP. COUNTS INCLUDE 234 BEDS AT [facility] Medical History (Updated 09/03/25 @ 10:44 by Fatmata Simpson, JAVON) Osteoarthritis Arthritis GERD (gastroesophageal reflux disease) On anticoagulant therapy Spinal stenosis of lumbar region at multiple levels Screening examination for infectious disease Chronic tophaceous gout Right leg DVT Rheumatoid arthritis Tachycardia Lumbar radiculopathy HTN (hypertension) Rheumatoid arthritis Sleep apnea History of epilepsy Surgical History History of knee replacement Hx of exploratory laparotomy Hx of bariatric surgery History of spinal surgery Family History Maternal Uncle Colon cancer Paternal Aunt Breast cancer Mother Pacemaker Sister Pacemaker Social History Household Members: Spouse Housing: Apartment Are you a primary chronic care nurse to a significant other at home: No Do you presently have visiting nurse or other home services: No Alcohol intake: never Comment: bathroom Patient Tobacco Use Status: Never used Tobacco e-Cigarette/Vaping Use: Never Used service: No Current occupational status: disabled Review of Systems Const Denies chills, Denies daytime sleepiness, Denies difficulty sleeping, Denies fatigue, Denies fever(s), Denies frequent falls, Reports headache(s), Denies increased appetite, Denies poor appetite, Denies snoring, Denies weakness, Denies weight gain and Denies weight loss Eyes Denies loss of vision ENT Denies vertigo, Denies dizziness, Reports headache(s) and Denies neck pain Card Denies chest pain at rest, Denies chest pain with activity, Denies syncope, Denies leg edema, Denies palpitations, Denies dyspnea and Denies dyspnea on exertion Resp Denies cough, Denies dyspnea, Denies dyspnea on exertion and Denies snoring GI Denies abdominal pain, Denies constipation, Denies heartburn, Denies diarrhea and Denies nausea Denies urinary frequency, Denies urinary incontinence and Denies urinary urgency Musc Denies abnormal gait, Denies back pain, Denies myalgias, Reports arthralgias, Denies neck pain, Denies numbness and Denies tingling Neuro Denies abnormal gait, Denies vertigo, Denies dizziness, Denies syncope, Denies frequent falls, Reports headache(s), Denies lack of coordination, Denies loss of vision, Denies memory loss, Denies numbness, Denies Other visual disturbances, Denies restless legs, Denies seizure-like activity, Denies tingling, Denies paresthesias, Denies tremor(s) and Denies weakness Psych Denies anxiety, Denies depression, Denies auditory hallucinations, Denies memory loss and Denies visual hallucinations Endo Denies fatigue and Denies palpitations Physical Exam Const Other: General Appearance:? normal, in no acute distress. Heart:? S1, S2 normal, no murmurs. Lungs:? clear anteriorly and posteriorly. Musculoskeletal:? normal. Extremities:? no edema. Psych:? alert, oriented, cognitive function intact, cooperative with exam. Neuro Other: Abnormal Neurological Findings:?none.? Mental Status: alert and oriented X 3. Normal attention, orientation, memory, and affect. Cranial Nerves: Pupils are equal, round, and reactive to light. External ocular muscles are intact. Visual rivera are full, no ptosis. Face is symmetrical, no facial weakness or droop. Facial sensations are normal. Tongue protrudes in midline. Palate elevates symmetrically. Shoulder shrugging is normal Motor Examination: Normal muscle tone, bulk and strength. No atrophy or fasciculations. No drift of the extended upper extremities. DTR 2+. Plantars are flexor. Sensory Exam: Normal light touch, temperature, pinprick, vibration, and joint- position sensations. Rhomberg sign is absent. Coordination: No ataxia. No titubation. Aiupyc-wo-qlxw, fnrf-qaft-myke test, and rapid alternating movements were normal. Gait Exam: Within normal limits. Cerebellar Signs: Qhirpm-td-dgeh and pmzn-tt-ugxk is normal. No dysdiadochokinesia. Extrapyramidal System: No tremor, rigidity with normal facial expressions. No bradykinesia. No bradyphrenia. Normal arm swing and posture. No propulsion or retropulsion. Speech: Normal. No dysphasia or dysarthria. Assessment & Plan Assessment & Plan (1) Post traumatic seizure disorder: Code(s): R56.1 - Post traumatic seizures Category: Medical Plan: Continue phenytoin sodium extended capsule 100mg 2 capsules three times a day. Continue phenobarbital 97.2mg 2 tablets at bedtime. (2) Migraine: Code(s): G43.909 - Migraine, unspecified, not intractable, without status migrainosus Category: Medical Qualifiers: Migraine type: unspecified Status migrainosus presence: without status migrainosus Intractability: not intractable Qualified Code(s): G43.909 - Migraine, unspecified, not intractable, without status migrainosus Plan: Continue sumatriptan 100mg 1 tablet as needed for migraine. Medications: Changed From phenobarbital 194.4 mg PO BEDTIME To phenobarbital 194.4 mg (2 x 97.2 mg) PO BEDTIME 180 tabs 1RF 90 days Coding Level of Care Code Est Pt Level 4 (26469) Diagnoses Post traumatic seizure disorder R56.1 Migraine without status migrainosus, not intractable, unspecified migraine type G43.909 Migraine type: unspecified Status migrainosus presence: without status migrainosus Intractability: not intractable
--- OUTSIDE RECORDS SUMMARY | 2024-11-17 12:21 | XMS_ITS | Encounter Summary ---
Author Organization [employer] Address [address] [facility] [address] [place] [address] Care Team Providers Care Operations Manager Assistant Name Role Phone Shi Lancaster MD Primary Care Provide r Reason for Visit * Reason Onset Date Comments Appointment Request 09/03/2022 Encounter Details Date Type Department Care Team ([facility] st Contact Info) Description 09/03/2022 Telephone [facility] [address] [place] [address] Shi Lancaster MD [address] [place] [address] Appointment Request Social History Tobacco Use Types [...] Description 12/02/2024 10:00 AM EDT Clinical Support [facility] [address] [place] [address] Sosa Horan RN documented as of this encounter Visit Diagnoses Not on filedocumented in this encounter Additional Health Concerns Assessment Noted Time PHQ-9 Depression Total Score: 0 08/01/19 11:32 AM EDT documented as of this encounter Care Teams Operations Manager Assistant Relationship Specialty Start Date End Date Shi Lancaster MD [address] [place] [address] PCP - General Family Medicine 11/26/17 [facility] 01/03/24 documented as of this encounter
--- OUTSIDE RECORDS SUMMARY | 2024-11-17 12:21 | XMS_ITS | Clinical Summary ---
Author Organization [employer] Address [address] [facility] 7[address] [place] [address] Care Team Providers Care Licensed Acupuncturist Name Role Phone Shi Lancaster MD Primary [...] 300MG TAB TO EQUAL 500MG PO DAILY Active Blood Pressure Monitor kitIndications:Pr imary hypertension Use to monitor blood pressure 1 kit 023 Active naloxone (Narcan) 4 mg/0.1 mL nasal sprayIndications: Chronic bilateral low back pain, unspecified whether sciatica present Administer 1 spray (4 mg) into affected nostril(s) if needed for opioid reversal. 2 each 3 025 Active losartan (Cozaar) 100 MG tabletIndications :Primary hypertension TAKE 1 TABLET BY MOUTH EVERY MORNING 90 tablet 1 025 Active pantoprazole (ProtoNix) 40 MG EC tablet TAKE 1 TABLET BY MOUTH EVERY MORINING 90 tablet 025 Active losartan (Cozaar) 100 MG tabletIndications :Primary hypertension TAKE 1 TABLET BY MOUTH EVERY MORNING 90 tablet 1 025 Active hydroCHLOROthiazi de 12.5 MG tabletIndications :Primary hypertension TAKE 1 TABLET BY MOUTH EVERY MORNING 90 tablet 025 Active apixaban (Eliquis) 5 MG tabletIndications :Acute deep vein thrombosis (DVT) of proximal vein of lower extremity, unspecified laterality (CMS/HCC) TOME 1 TABLETA POR VIA ORAL DOS VECES AL TL 60 tablet 025 Active oxyCODONE (Roxicodone) 5 MG immediate release tabletIndications :Chronic bilateral low back pain, unspecified whether sciatica present Take 1 tablet (5 mg) by mouth every 8 (eight) hours if needed for severe pain for up to 28 days. 84 tablet 025 2024 Active cyclobenzaprine (Flexeril) 10 MG tabletIndications :Osteoarthritis of right knee, unspecified osteoarthritis type TAKE 1 TABLET BY MOUTH EVERY 8 HOURS 90 tablet 025 Active apixaban (Eliquis) 5 MG tabletIndications :Acute deep vein thrombosis (DVT) of proximal vein of lower extremity, unspecified laterality (CMS/HCC) TAKE 1 TABLET BY MOUTH TWICE A DAY 60 tablet 025 2024 Discontinued oxyCODONE (Roxicodone) 5 MG immediate release tabletIndications :Chronic bilateral low back pain, unspecified whether sciatica present Take 1 tablet (5 mg) by mouth every 8 (eight) hours if needed for severe pain for up to 28 days. Do not start before September 24, 2024. 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 05/15 Rheumatoid arthritis involvi ng multiple sites with positive rheumatoid factor 05/14/2024 Assessment & Plan (05/14/2024 4:32 PM EST): Continue to follow with rheumatology I will continue with same dose of oxycodone 5 mg every 8 hours as needed for pain control Sinus tachycardia 05/14/2024 Assessment & Plan (05/14/2024 4:31 PM EST): Optimization Engineer is aware of his sinus tachycardia and [...] for pain patient will follow up with MACHINE ASSEMBLER SUPERVISOR nurse I will inquire about electric [...] Encounters Date Type Department Care Team Description 11/11/2024 Refill [facility] [address] [place] [address] Yenny Shea MD Osteoarthritis of right knee, unspecified osteoarthritis type 11/08/2024 Telephone [facility] [address] [place] [address] Shi Lancaster MD Housing Form (I called the patient regarding a reasonable accommodation form, from the [facility]. He needs to state what accommodation he is requesting. I reached a voicemail, and left a message asking him to return my call at ext [phone].) 10/25/2024 Refill [facility] [address] [place] [address] Shi Lancaster MD Chronic bilateral low back pain, unspecified whether sciatica present 10/18/2024 Refill [facility] [address] [place] [address] Shi Lancaster MD Acute deep vein thrombosis (DVT) of proximal vein of lower extremity, unspecified laterality (CMS/HCC) 10/13/2024 Refill [facility] [address] [place] [address] Shi Lancaster MD Osteoarthritis of right knee, unspecified osteoarthritis type 10/11/2024 Orders Only GENERIC EXTERNAL DATA DEPARTMENT Provider, Generic External Data 10/06/2024 Orders Only [facility] External Provider, [facility] 09/28/2024 Patient Outreach [facility] [address] [place] [address] Shi Lancaster MD Pre-visit Planning (SDOH screening completed on 04/30/2024) 09/23/2024 Patient Outreach [facility] [address] [place] [phone] Shi Lancaster MD Care Coordination (CHW outreach for SDOH PT-1 and food needs-referral completed /) 09/23/2024 Telephone [facility] [address] [place] [phone] Shi Lancaster MD pt1 09/23/2024 Refill [facility] [address] [place] [address] Shi Lancaster MD Chronic bilateral low back pain, unspecified whether sciatica present 09/18/2024 Refill [facility] [address] [place] [address] Shi Lancaster MD Acute deep vein thrombosis (DVT) of proximal vein of lower extremity, unspecified laterality (CMS/HCC) 09/11/2024 Refill [facility] [address] [place] [address] Shi Lancaster MD Primary hypertension 09/01/2024 9:00 AM EDT Clinical Support [facility] [address] [place] [address] Sosa Horan RN 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 (Primary Dx) 09/01/2024 Telephone [facility] [address] [place] [address] Sosa Horan RN BPI Scoring (BPI Scoring) 09/01/2024 Travel 08/28/2024 Refill [facility] [address] [place] [address] Shi Lancaster MD Osteoarthritis of right knee, unspecified osteoarthritis type 08/27/2024 Refill [facility] [address] [place] [address] Shi Lancaster MD Primary hypertension 08/26/2024 Travel 08/25/2024 Refill [facility] [address] [place] [address] Shi Lancaster MD Chronic bilateral low back pain, unspecified whether sciatica present 08/17/2024 Refill [facility] [address] [place] [address] Shi Lancaster MD Acute deep vein thrombosis (DVT) of proximal vein of lower extremity, unspecified laterality (CMS/HCC) from Last 3 Months Immunizations Immunization Administration Dates Next Due Hep A, Adult [...] 125 05/14/2024 11:43 AM EST Temperature 37.1 C (98.7 F) 05/14/2024 10:53 AM EST Respiratory Rate 20 05/14/2024 10:53 AM EST [...] Description 12/02/2024 10:00 AM EDT Clinical Support [facility] [address] [place] [phone] Sosa Horan, RN Health Maintenance Due Date [...] X-Ray: Bitewings 04/09/2024 04/08/19 24, 07/29/2018, 06/10/2016 Influenza Vaccine (#1) 2024 , 12/20/2022, 01/29/2021, Additional history exists Disability Screening 04/21/2025 04/21/2024 SDOH Screening 04/30/2025 04/30/2024 Tobacco Screening 04/30/2025 04/30/2024 Zoster Vaccines (1 of 2) 10/19/2025 Dental X-Ray: Full Mouth 04/09/2026 04/08/2023, 05/16 Lipid Panel 10/11/2029 10/11/2024, 09/14, 03/28/2021, Additional history exists RSV Patients and Patients Aged 60 years or older (1 - 1-dose 75+ series) 10/19/2050 Hepatitis A Vaccines Completed 08/17/2012, 12/06/19 Hepatitis B Vaccines Completed 08/17/2012, 01/07/2012, 12/06/2011 Hepatitis C Screening Completed 05/14/2023 HIB Vaccines Aged Out No longer eligi [...] Years) and At-Risk Patients (6 to 49) Years Aged Out No longer eligible based on patient's age to complete this topic RSV under 20 months Aged Out No longe r eligible based on patient's age to complete this topic Rotavirus Vaccines Aged Out No longer eligible based on patient's age to complete this topic Procedures Procedure Name Priority Date/Time Associated Diagnosis Comments LIPID PANEL, STANDARD Routine 10/11/2024 10:25 AM EDT C-REACTIVE PROTEIN Routine 10/11/2024 10 :25 AM EDT URIC ACID Routine 10/11/2024 10:25 AM EDT COMPREHENSIVE METABOLIC PANEL Routine 10/11/2024 10:25 AM EDT SED RATE BY MODIFIED WESTERGREN Routine 10/11/2024 10:25 AM EDT CBC WITH AUTO DIFFERENTIAL Routine 10/11/2024 10:25 AM EDT SED RATE BY MODIFIED WESTERGREN Routine 10/06/2024 3:21 PM EDT C-REACTIVE PROTEIN Routine 10/06/2024 3: 21 PM EDT URIC ACID Routine 10/06/2024 3:21 PM EDT COMPREHENSIVE METABOLIC PANEL Routine 10/06/2024 3:21 PM EDT CBC WITH AUTO DIFFERENTIAL Routine 10/06/2024 3:21 PM EDT XR LUMBAR SPINE 2-3 VIEWS Routine 10/06/2024 2:15 PM EDT POCT BIENVENIDO-14 URINE DRUG SCREEN Routine 09/01/2024 8:54 AM EDT 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 HEPATITIS PANEL, GENERAL Routine 05/14/2023 2:15 PM EST PROPHYLAXIS - ADULT Routine 04/08/2023 8 :00 AM EST Crowded teeth Dental calculus Periodontal disease Gingival bleeding INTRAORAL - COMPLETE SERIES OF RADIOGRAPHIC IMAGES Routine 04/08/2023 8:00 AM EST Crowded teeth Dental calculus Periodontal disease Dental caries Gingival bleeding Localized gingival recession PERIODIC ORAL EVALUATION - ESTABLISHED PATIENT Routine 04/08/2023 8:00 AM EST from Last 3 Months or Most Recently Relevant to Health Maintenance Results * (ABNORMAL) CBC auto differential (10/11/2024 10:25 AM EDT) Only the most recent of2 resultswithin the time period is included. White Blood Count 5.1 4.8 - 10.8 X10*3/uL [facility] Red Blood Count 4.32(L) 4.60 - 5.80 X10*6/uL [facility] Hemoglobin 15.0 14.0 - 18.0 g/dl [facility] Hematocrit 41.8(L) 42.0 - 52.0 % [facility] Mean Corpuscular Volume 96.8 80.0 - 98.0 fL [facility] Mean Corpuscular Hemoglobin 34.7(H) 27.0 - 33.0 pg [facility] Mean Corpuscular HGB Conc 35.9 31.0 - 36.0 g/dl [facility] Red Cell Distribution Width 12.8 11.0 - 16.0 % [facility] Platelet Count 163 160 - 400 X10*3/uL [facility] Mean Platelet Volume 9.9 9.4 - 12.4 fL [facility] Neutrophils Percent Auto 57.3 45 - 73 % [facility] Imm Gran Pct Auto 0.4 0.0 - 0.4 % [facility] Lymphocytes Percent Auto 30.0 20 - 40 % [facility] Monocytes Percent Auto 9.6 2 - 11 % [facility] Eosinophils Percent Auto 2.1 0 - 4 % [facility] Basophils Percent Auto 0.6 0 - 2 % [facility] NRBC Pct Auto 0.0 0.0 - 0.2 /100WBC [facility] Neutrophils Absolute Auto 2.9 2.0 - 8.3 x10*3/uL [facility] Imm Gran Abs Auto 0.02 0.00 - 0.03 X10*3/uL [facility] Lymphocytes Absolute Auto 1.5 1.2 - 4.9 X10*3/uL [facility] Monocytes Absolute Auto 0.5 0.1 - 1.2 X10*3/uL [facility] Eosinophils Absolute Auto 0.1 0.0 - 0.4 X10*3/uL [facility] Basophils Absolute Auto 0.0 0.0 - 0.2 X10*3/uL [facility] NRBC Abs Auto 0.000 0.0 - 0.012 X10*3/uL [facility] 10/11/2024 10:2 5 AM EDT 10/11/2024 10:25 AM EDT us Generic External Data Provider LAB BLOOD ORDERAB LES Final Result [facility] [address] [place] [phone] [phone] * Sed Rate by Modified Westergren (10/11/2024 10:25 AM EDT) Only the most recent of2 resultswithin the time period is included. Erythrocyte Sedimentation Rate 3 0 - 15 MM/HR [facility] Comment:Patients with polycy themia and many hemoglobin abnormalitiesmay have depressed sed rates whereas patients with anemiamay have elevated sed rates. 10/11/2024 10:2 5 AM EDT 10/11/2024 10:25 AM EDT Generic External Data Provider LAB BLOOD ORDERAB LES Final Result Performing Organization Address [facility] Phone Number [facility] [address] [place] [phone] * C-reactive Protein (10/11/2024 10:25 AM EDT) Only the most recent of2 resultswithin the time period is included. C Reactive Protein <0.04 < or = 0.50 mg/dL [facility] 10/11/2024 10:2 5 AM EDT 10/11/2024 10:25 AM EDT Generic External Data Provider LAB BLOOD ORDERAB LES Final Result Performing Organization Address [facility] de Phone Number [facility] [address] [place] [phone] * Uric acid (10/11/2024 10:25 AM EDT) Only the most recent of2 resultswithin the time period is included. Uric Acid 4.2 3.4 - 7.0 mg/dL [facility] 10/11/2024 10:2 5 AM EDT 10/11/2024 10:25 AM EDT Generic External Data Provider LAB BLOOD ORDERAB LES Final Result [facility] [address] [place] [phone] [phone] * (ABNORMAL) Lipid Panel, Standard (10/11/2024 10:25 AM EDT) Triglycerides 192(H) <150 mg/dL [facility] Comment:Desirable Triglyceri de: less than 150 mg/dLBorderline High Triglyceride 150-199 mg/dLHigh Triglyceride: 200-499 mg/dLVery High Triglyceride: greater than or equal to 5OO mg/dL Cholesterol 239(H) <200 mg/dL [facility] Comment:Desirable Cholestero l: less than 200 mg/dLBorderline High Cholesterol: 200-239 mg/dLHigh Cholesterol: greater than 239 mg/dL LDL Cholesterol Calculated 151(H) <100 mg/dL [facility] Comment:Desirable LDL: less than 100 mg/dLNear Optimal/Above Optimal LDL: 110- 129 mg/dLBorderline High LDL: 130-159 mg/dLHigh LDL: 160-189 mg/dLVery High LDL: greater than or equal to 190 mg/dL HDL Cholesterol 50 >40 mg/dL [facility] Comment:Desirable HDL: great er than 40 mg/dL Note: This HDL assay may give artificially low results in patients with liver disease. 10/11/2024 10:2 5 AM EDT 10/11/2024 10:25 AM EDT Generic External Data Provider LAB BLOOD ORDERAB LES Final Result [facility] [address] [place] [phone] * (ABNORMAL) Comprehensive Metabolic Panel (10/11/2024 10:25 AM EDT) Only the most recent of2 resultswithin the time period is included. Sodium 140 135 - 145 mmol/L [facility] Potassium 3.2(L) 3.3 - 5.1 mmol/L [facility] Chloride 102 96 - 108 mmol/L [facility] Carbon Dioxide 26 22 - 29 mmol/L [facility] Anion Gap 15 12 - 20 [facility] Urea Nitrogen (BUN) 14 9 - 16 mg/dL [facility] Creatinine, Serum 0.98 0.5 - 1.4 mg/dL [facility] Estimated Glomerular Filt Rate >60 [facility] Comment:Chronic Kidney Disea se: Estimated GFR < 60 mL/min/1.18q0Klprlb Kidney Disease: Estimated GFR < 15 mL/min/1.73m2 Glucose 114 60 - 115 mg/dL [facility] Calcium 9.8 8.4 - 10.2 mg/dL [facility] Bilirubin, Total 0.4 0.0 - 1.0 mg/dL [facility] Aspartate Amino Transferase 26 5 - 37 U/L [facility] Alanine Aminotransferase 39 0 - 40 U/L [facility] Total Protein 7.3 6.5 - 8.0 g/dL [facility] Albumin Level 4.7 3.5 - 5.0 g/dL [facility] Alkaline Phosphatase 84 39 - 117 U/L [facility] 10/11/2024 10:2 5 AM EDT 10/11/2024 10:25 AM EDT us Generic External Data Provider LAB BLOOD ORDERAB LES Final Result Performing Organization Address City/State/[facility] Co de Phone Number [facility] [address] [place] [phone] * XR Lumbar Spine 2-3 Views (10/06/2024 2:15 PM EDT) Anatomical Region Laterality Modality Spine, L-spine Radiographic Patricia ging 10/06/2024 2:15 PM EDT Narrative 10/06/2024 3:26 PM EDT [address] [address] XRay Report Signed Patient: Gómez Pelletier MR#: [id number] : 1975 Acct:[id number] Age/Sex: 48 / M ADM Date: 10/06/24 Loc: HO.ED Attending Dr: Ordering Physician: Gely Charles NP Date of Service: 10/06/24 Procedure(s): XR lumbar spine 2-3V Accession Number(s): [id number] cc: Shi Lancaster MD; Gely Charles NP EXAMINATION: XR LUMBOSACRAL SPINE CLINICAL INFORMATION: severe pain COMPARISON: None available. TECHNIQUE: Three views of the lumbosacral spine. FINDINGS: There are clips in the left upper quadrant. There are 5 non-rib bearing lumbar segments. Vertebral body height and alignment is preserved. Multilevel degenerative changes with bridging osteophytes and nonbridging osteophytes are again noted, more advanced in the upper lumbar spine. XR/XR lumbar spine 2-3V IMPRESSION: There are changes consistent with diffuse idiopathic skeletal hyperostosis (DISH) Degenerative changes are stable to slightly increased. No acute abnormality. Electronically signed by: Anthony Bolden MD 10/06/2024 03:22 PM EDT RP Dictated By: Anthony Bolden MD Signed By: <Electronically signed by Anthony Bolden MD in OV> 10/06/24 1522 DD/ 1415 TD/TT: 10/06/24 1515 Semiconductor Manufacturing Technician: Procedure Note Donotuseinterpreter, Image - 10/06/2024 [place] [id number] XRay Report Signed Patient: Gómez Pelletier [facility]#: [id number] : 1975Acct:[id number] Age/Sex: 48 / MADM Date: 10/06/24 Loc: HO.ED Attending Dr: Ordering Physician: Gely Charles NP Date of Service: 10/06/24 Procedure(s): XR lumbar spine 2-3V Accession Number(s): [id number] cc: Shi Lancaster MD; Gely Charles NP EXAMINATION: XR LUMBOSACRAL SPINE CLINICAL INFORMATION: severe pain COMPARISON: None available. TECHNIQUE: Three views of the lumbosacral spine. FINDINGS: There are clips in the left upper quadrant. There are 5 non-rib bearing lumbar segments. Vertebral body height and alignment is preserved. Multilevel degenerative changes with bridging osteophytes and nonbridging osteophytes are again noted, more advanced in the upper lumbar spine. XR/XR lumbar spine 2-3V IMPRESSION: There are changes consistent with diffuse idiopathic skeletal hyperostosis (DISH) Degenerative changes are stable to slightly increased. No acute abnormality. Electronically signed by: Anthony Bolden MD 10/06/2024 03:22 PM EDT RP Dictated By: Anthony Bolden MD Signed By: <Electronically signed by Anthony Bolden MD in OV> 10/06/24 1522 DD/ 1415 TD/TT: 10/06/24 1515 Semiconductor Manufacturing Technician: [facility] External Provider IMG XR PROCEDURES Final Result * POCT BIENVENIDO-14 Urine Drug Screen (09/01/2024 8:54 AM EDT) THC Negative Cocaine Screen, Urine Negative Opiate Screen, Urine Negative Methamphetamine Screen Urine Negative Amphetamine Screen, Urine Negative Benzodiazepines Screen, Urine Negative Barbiturate Screen, Urine Positive Methadone Screen, Urine Negative Buprenophine Screen, Urine Negative TCA, Urine Positive MDMA Urine Negative ng/mL Oxycodone Screen, Urine Positive Phencyclidine (PCP), Urine Negative Propoxyphene, Urine Negative Fentanyl, Urine Negative Urine Urine specimen obtained by clean catch procedure / Unknown 09/01/2024 8:54 AM EDT Sosa Bergeron RN - 09/01/2024 8:54 AM EDT UTOX cup Lot#[id number] Exp. 01/14/26 Internal Pass Control Shi Gage MD POINT OF CARE TEST EN TER/EDIT ORDERABLES Final Result * Hepatitis Panel, General (05/14/2023 2:15 PM EST) Hepatitis A IgM Nonreactive Nonreactive [facility] Comment:IgM antibodies to NUNEZ V not detected; does not exclude earlyacute or recovered HAV infection. ~Hepatitis B Surface Antibody NONREACTIVE Nonreactive [facility] Comment:Nonreactive: < 8.00 mIU/mL Hepatitis B Core Antibody Nonreactive Nonreactive [facility] Hepatitis C Antibody Nonreactive Nonreactive [facility] Comment:Antibodies to HCV no t detected; does not exclude early acuteHCV infection. Hepatitis B Surface Ag Negative Negative [facility] 05/14/2023 2:15 PM EST 05/14/2023 2:15 PM EST us Generic External Data Provider LAB BLOOD ORDERAB LES Final Result Performing Organization Address City/State/[facility] Co de Phone Number [facility] [address] [place] [phone] from Last 3 Months or Most Recently Relevant to Health Maintenance Insurance [facility] C[place] ST[place] AD[place] Care Teams Licensed Acupuncturist Relationship Specialty Start Date End Date Shi Lancaster MD [address] [place] [phone] PCP - General Family Medicine 11/26/17 [facility] 01/03/24
--- OUTSIDE RECORDS SUMMARY | 2024-11-17 12:21 | XMS_ITS | Encounter Summary ---
Author Organization [employer] Address [address] [facility] [address] [place] [address] Care Team Providers Care General Manager Farm Name Role Phone Shi Lancaster MD Primary Care Provide r Reason for Visit * Reason Onset Date Comments Med Refill 02/26/2024 Encounter Details Date Type Department Care Team (Late st Contact Info) Description 02/26/2024 Refill [facility] [address] [place] [address] Shi Lancaster MD [address] [place] [address] Chronic bilateral low back pain, unspecified whether [...] 10:00 AM EDT Clinical Support [facility] [address] [place] [address] Sosa Horan RN documented as of this encounter Visit Diagnoses Diagnosis Chronic bilateral low back pain, unspecified whether sciatica present Seropositive rheumatoid arthritis ([facility]) Primary osteoarthritis of right knee documented in this encounter Additional Health Concerns Assessment Noted Time PHQ-9 Depression Total Score: 0 08/01/19 23 11:32 AM EDT documented as of this encounter Care Teams General Manager Farm Relationship Specialty Start Date End Date Shi Lancaster MD [address] [place] [phone] PCP - General Family Medicine 11/26/17 [facility] 01/03/24 documented as of this encounter
--- OUTSIDE RECORDS SUMMARY | 2024-11-17 12:21 | XMS_ITS | Encounter Summary ---
Author Organization [employer] Address [address] [facility] [address] [facility] [address] [place] [address] Care Team Providers Care Internal Medicine Hospitalist Name Role Phone Shi Lancaster MD Primary Care Provide r Reason for Visit * Reason Onset Date Comments Med Refill 03/22/2024 Encounter Details Date Type Department Care Team (Late st Contact Info) Description 03/22/2024 Refill [facility] [address] [place] [address] Shi Lancaster MD [address] [place] [address] Acute deep vein thrombosis (DVT) of proximal [...] Description 12/02/2024 10:00 AM EDT Clinical Support [facility] [address] [place] [address] Sosa Horan RN documented as of this encounter Visit Diagnoses Diagnosis Acute deep vein thrombosis (DVT) of proximal vein of lower extremity, unspecified laterality (CMS/HCC) documented in this encounter Additional Health Concerns Assessment Noted Time PHQ-9 Depression Total Score: 0 08/01/19 23 11:32 AM EDT documented as of this encounter Care Teams Internal Medicine Hospitalist Relationship Specialty Start Date End Date Shi Lancaster MD [address] [place] [address] PCP - General Family Medicine 11/26/17 [facility] 01/03/24 documented as of this encounter
--- OUTSIDE RECORDS SUMMARY | 2024-11-17 12:21 | XMS_ITS | Clinical Summary ---
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
--- OUTSIDE RECORDS SUMMARY | 2024-11-17 12:21 | XMS_ITS | Encounter Summary ---
Author Organization [employer] Address [address] [facility] [address] 7t [place] [address] Care Team Providers Care Field Test Engineer Name Role Phone Shi Lancaster MD Primary Care Provide r Reason for Visit * Reason Onset Date Comments Appointment Request 06/26/2023 Encounter Details Date Type Department Care Team ([facility] st Contact Info) Description 06/26/2023 Telephone [facility] MEDICINE [address] [place] [address] Shi Lancaster MD 230 [place] [address] Appointment Request Social History Tobacco Use Types [...] Description 12/02/2024 10:00 AM EDT Clinical Support [facility] MED[facility]INE [address] [place] [address] Sosa Horan, RN documented as of this encounter Visit Diagnoses Not on filedocumented in this encounter Additional Health Concerns Assessment Noted Time PHQ-9 Depression Total Score: 0 08/01/19 23 11:32 AM EDT documented as of this encounter Care Teams Field Test Engineer Relationship Specialty Start Date End Date Shi Lancaster MD [address] [place] [address] PCP - General Family Medicine 11/26/17 [facility] documented as of this encounter
--- OUTSIDE RECORDS SUMMARY | 2024-11-17 12:21 | XMS_ITS | Encounter Summary ---
Author Organization [employer] Address [address] [facility] 7t [place] [address] Care Team Providers Care Construction Worker Name Role Phone Shi Lancaster MD Primary Care Provide r Encounter Details Date Type Department Care Team (Latest Contact Info) Description 09/30/[address] [facility] CONVERSIONS Dental, Provider, DDS Social [...] Description 12/02/2024 10:00 AM EDT Clinical Support [facility] MEDICINE [address] [place] [address] Sosa Horan RN documented as of this encounter Visit Diagnoses Not on filedocumented in this encounter Care Teams Construction Worker Relationship Specialty Start Date End Date Shi Lancaster MD 230 [place] [address] PCP - General Family Medicine 11/26/17 [facility] documented as of this encounter
--- OUTSIDE RECORDS SUMMARY | 2024-11-17 12:21 | XMS_ITS | Encounter Summary ---
Author Organization [employer] Address [address] [facility] [address] 7[address] [place] [address] Care Team Providers Care Wireless Cellular Technician Name Role Phone Shi Lancaster MD Primary Care Provide r Reason for Visit * Reason Onset Date Comments Med Refill 02/29/2024 Encounter Details Date Type Department Care Team (Late st Contact Info) Description 02/29/2024 Refill [facility] MEDICINE [address] [place] [address] Shi Lancaster MD [address] [place] [address] Primary hypertension Social History Tobacco Use Types [...] Description 12/02/2024 10:00 AM EDT Clinical Support [facility] MEDICINE [address] [place] [address] Sosa Horan RN documented as of this encounter Visit Diagnoses Diagnosis Primary hypertension Unspecified essential hypertension documented in this encounter Additional Health Concerns Assessment Noted Time PHQ-9 Depression Total Score: 0 08/01/19 23 11:32 AM EDT documented as of this encounter Care Teams Wireless Cellular Technician Relationship Specialty Start Date End Date Shi Lancaster MD [address] [place] [address] PCP - General Family Medicine 11/26/17 [facility] documented as of this encounter
--- OUTSIDE RECORDS SUMMARY | 2024-11-17 12:21 | XMS_ITS | Encounter Summary ---
Author Organization [employer] Address [address] [facility] 7t [place] [address] Care Team Providers Care Director Of Psychology Name Role Phone Shi Lancaster MD Primary Care Provide r Reason for Visit * Reason Comments Med Refill Encounter Details Date Type Department Care Team ([facility] Contact Info) Description 06/12/2022 Refill [facility] MEDICINE 230 [place] [address] Keiry Joseph DO [address] [place] [address] Acute deep vein thrombosis (DVT) of proximal [...] Department Care Team (Late Contact Info) Description 12/02/2024 10:00 AM EDT Clinical Support [facility] MEDICINE [address] [place] [address] Sosa Horan RN documented as of this encounter Visit Diagnoses Diagnosis Acute deep vein thrombosis (DVT) of proximal vein of lower extremity, unspecified laterality (CMS/HCC) documented in this encounter Care Teams Director Of Psychology Relationship Specialty Start Date End Date Shi Lancaster MD [address] [place] [address] PCP - General Family Medicine 11/26/17 [facility]shmi JOSEPH 01/03/24 documented as of this encounter
--- OUTSIDE RECORDS SUMMARY | 2024-11-17 12:21 | XMS_ITS | Encounter Summary ---
Author Organization [employer] Address [address] [facility] [address] 7[address] [place] [address] Care Team Providers Care Furs Salesperson Name Role Phone Shi Lancaster MD Primary Care Provide r Reason for Visit * Reason Onset Date Comments Med Refill 01/11/2024 Encounter Details Date Type Department Care Team (Late st Contact Info) Description 01/11/[address] [facility] MEDICINE [address] [place] [address] Shi Lancaster MD 230 [place] [address] Primary hypertension Social History Tobacco Use Types [...] Description 12/02/2024 10:00 AM EDT Clinical Support [facility] MEDICINE 230 [place] [address] Sosa Horan RN documented as of this encounter Visit Diagnoses Diagnosis Primary hypertension Unspecified essential hypertension documented in this encounter Additional Health Concerns Assessment Noted Time PHQ-9 Depression Total Score: 0 08/01/19 23 11:32 AM EDT documented as of this encounter Care Teams Furs Salesperson Relationship Specialty Start Date End Date Shi Lancaster MD [address] [place] [address] PCP - General Family Medicine 11/26/17 [facility] documented as of this encounter
--- OUTSIDE RECORDS SUMMARY | 2024-11-17 12:21 | XMS_ITS | Encounter Summary ---
Author Organization [employer] Address [address] [facility] [address] 7[address] [place] [address] Care Team Providers Care Sample Box Maker Name Role Phone Shi Lancaster MD Primary Care Provide r Reason for Visit * Reason Onset Date Comments Med Refill 01/03/2024 Postop pain 01/03/2024 Encounter Details Date Type Department Care Team ([facility] st Contact Info) Description 01/03/2024 Refill [facility] MEDICINE [address] [place] [address] Shi Lancaster MD 230 [place] [address] Seropositive rheumatoid arthritis (CMS/HCC); Primary osteoarthritis of [...] EDT TC to patient, interpretation provided by [facility] medical records custodian, pt had his R TKA procedure done [...] Description 12/02/2024 10:00 AM EDT Clinical Support [facility] MEDICINE [address] [place] [address] Sosa Horan, RN documented as of this encounter Visit Diagnoses Diagnosis Seropositive rheumatoid arthritis ([facility]) Primary osteoarthritis of right knee documented in this encounter Additional Health Concerns Assessment Noted Time PHQ-9 Depression Total Score: 0 08/01/19 23 11:32 AM EDT documented as of this encounter Care Teams Sample Box Maker Relationship Specialty Start Date End Date Shi Lancaster MD [address] [place] [address] PCP - General Family Medicine 11/26/17 [facility] 01/03/24 documented as of this encounter
--- OUTSIDE RECORDS SUMMARY | 2024-11-17 12:21 | XMS_ITS | Encounter Summary ---
Author Organization [employer] Address [address] [facility] 7t [place] [address] Care Team Providers Care Dip Painter Name Role Phone Shi Lancaster MD Primary Care Provide r Reason for Visit * Reason Comments Med Refill Encounter Details Date Type Department Care Team (Late st Contact Info) Description 09/26/2022 Refill [facility] MEDICINE 230 [place] [address] Shi Lancaster MD 230 [place] [address] Acute deep vein thrombosis (DVT) of proximal [...] Description 12/02/2024 10:00 AM EDT Clinical Support [facility] MEDICINE [address] [place] [address] Sosa Horan RN documented as of this encounter Visit Diagnoses Diagnosis Acute deep vein thrombosis (DVT) of proximal vein of lower extremity, unspecified laterality (CMS/HCC) documented in this encounter Additional Health Concerns Assessment Noted Time PHQ-9 Depression Total Score: 0 08/01/19 23 11:32 AM EDT documented as of this encounter Care Teams Dip Painter Relationship Specialty Start Date End Date Shi Lancaster MD 230 [place] [address] PCP - General Family Medicine 11/26/17 [facility] 01/03[facility] documented as of this encounter
--- OUTSIDE RECORDS SUMMARY | 2024-11-17 12:21 | XMS_ITS | Encounter Summary ---
Author Organization [employer] Address [address] [facility] [address] 7t [place] [address] Care Team Providers Care Medical Director Occupational Health Name Role Phone Shi Lancaster MD Primary Care Provide r Reason for Visit * Reason Onset Date Comments pt1 09/23/2024 Encounter Details Date Type Department Care Team (Late st Contact Info) Description 09/23/2024 Telephone [facility] MEDICINE 230 [place] [address] Shi Lancaster MD 230 [place] [address] pt1 Social History Tobacco Use Types Packs/Day Years [...] encounter Miscellaneous Notes * Telephone Encounter - Fabian Yip - 09/23/2024 11:39 AM EDT Patient calling requesting PT1 Home Address verified: Y/N: Yes Provider name or facility name: [facility] Escort needed: Y/N: No Do you have a wheelchair: Y/N: No Visits: (2x month) Patient calling requesting PT1 Home Address verified: Y/N: Yes Provider name or facility name: [facility] [address] Escort needed: Y/N: No Do you have a wheelchair: Y/N: No Visits: ( 3x month ) Patient calling requesting PT1 Home Address verified: Y/N: Yes Provider name or facility name: [address] [facility] [address] Escort needed: Y/N: No Do you have a wheelchair: Y/N: No Visits: (2x month ) documented in this encounter Plan of Treatment Upcoming Encounters Date Type Department Care Team (Late st Contact Info) Description 12/02/2024 10:00 AM EDT Clinical Support [facility] MEDICINE [address] [place] [address] Sosa Horan RN documented as of this encounter Visit Diagnoses Not on filedocumented in this encounter Additional Health Concerns Assessment Noted Time PHQ-9 Depression Total Score: 0 08/01/19 23 11:32 AM EDT documented as of this encounter Care Teams Medical Director Occupational Health Relationship Specialty Start Date End Date Shi Lancaster MD [address] [place] [address] PCP - General Family Medicine 11/26/17 Lakshmi JOSEPH 01/03/24 documented as of this encounter
--- OUTSIDE RECORDS SUMMARY | 2024-11-17 12:21 | XMS_ITS | Encounter Summary ---
Author Organization [employer] Address [address] [facility] [address] [place] [address] Care Team Providers Care Circulation Clerk Name Role Phone Shi Lancaster MD Primary Care Provide r Reason for Visit * Reason Onset Date Comments Med Refill 12/04/2023 Encounter Details Date Type Department Care Team (Late st Contact Info) Description 12/04/2023 Refill [facility] MEDICINE 230 [place] [address] Shi Lancaster MD [address] [place] [address] Acute deep vein thrombosis (DVT) of proximal [...] 12/02/2024 10:00 AM EDT Clinical Support [facility] MEDICINE [address] [place] [address] Sosa Horan RN documented as of this encounter Visit Diagnoses Diagnosis Acute deep vein thrombosis (DVT) of proximal vein of lower extremity, unspecified laterality (CMS/HCC) documented in this encounter Additional Health Concerns Assessment Noted Time PHQ-9 Depression Total Score: 0 08/01/19 23 11:32 AM EDT documented as of this encounter Care Teams Circulation Clerk Relationship Specialty Start Date End Date Shi Lancaster MD 230 [place] [address] PCP - General Family Medicine 11/26/17 [facility] 01/03/24 documented as of this encounter
--- OUTSIDE RECORDS SUMMARY | 2024-11-17 12:21 | XMS_ITS | Encounter Summary ---
Author Organization [employer] Address [address] [facility] 7t [place] [address] Care Team Providers Care Biometrics Analyst Name Role Phone Shi Lancaster MD Primary Care Provide r Reason for Visit * Reason Onset Date Comments Med Refill 09/16/2022 Encounter Details Date Type Department Care Team (Late st Contact Info) Description 09/16/[address] [facility] MEDICINE 230 [place] [address] Shi Lancaster MD 230 [place] [address] Med Refill Social History Tobacco Use Types [...] [facility] [address] [place] [address] Sosa Horan RN documented as of this encounter Visit Diagnoses Not on filedocumented in this encounter Additional Health Concerns Assessment Noted Time PHQ-9 Depression Total Score: 0 08/01/19 23 11:32 AM EDT documented as of this encounter Care Teams Biometrics Analyst Relationship Specialty Start Date End Date Shi Lancaster MD [address] [place] [address] PCP - General Family Medicine 11/26/17 Lakshmi [facility] 01/03/24 documented as of this encounter
--- OUTSIDE RECORDS SUMMARY | 2024-11-17 12:21 | XMS_ITS | Encounter Summary ---
Author Organization [employer] Address [address] [facility] [address] 7[address] [place] [address] Care Team Providers Care Silver Solderer Name Role Phone Shi Lancaster MD Primary Care Provide r Reason for Visit * Reason Onset Date Comments Med Refill 10/08/2023 Encounter Details Date Type Department Care Team (Late st Contact Info) Description 10/08/2023 Refill [facility] MEDICINE 230 [place] [address] Shi Lancaster MD 230 [place] [address] Seropositive rheumatoid arthritis (CMS/HCC); Primary osteoarthritis of [...] Description 12/02/2024 10:00 AM EDT Clinical Support [facility] MEDICINE [address] [place] [address] Sosa Horan RN documented as of this encounter Visit Diagnoses Diagnosis Seropositive rheumatoid arthritis (CMS/[facility]) Primary osteoarthritis of right knee documented in this encounter Additional Health Concerns Assessment Noted Time PHQ-9 Depression Total Score: 0 08/01/19 23 11:32 AM EDT documented as of this encounter Care Teams Silver Solderer Relationship Specialty Start Date End Date Shi Lancaster MD [address] [place] [address] PCP - General Family Medicine 11/26/17 [facility] 01/03/24 documented as of this encounter
== END 2024-11-17 10:53 | disposition home or self-care (01) ==
LOC: HO.HSM 10:36
PROVIDERS: PCP Internal Medicine; Referring Provider Internal Medicine; Visit Provider Registered Nurse
DX: R56.1 Post traumatic seizures (principal); G43.909 Migraine, unspecified, not intractable, without status migrainosus
CPT/HCPCS: 99214

== ENCOUNTER → 2024-11-17 10:35 | Outpatient (BNVA) | payer MEDICAID, SELFPAY | PROVIDERS: PCP Internal Medicine; Referring Provider Internal Medicine; Visit Provider Registered Nurse | DX: R56.1 Post traumatic seizures (principal); G43.909 Migraine, unspecified, not intractable, without status migrainosus | CPT/HCPCS: 99212 ==

== ENCOUNTER 2024-12-20 10:09 | Outpatient (REF) | payer MEDICAID, SELFPAY ==
--- OUTSIDE RECORDS SUMMARY | 2024-12-20 11:47 | XMS_ITS | Clinical Summary ---
Author Organization [facility] Address [address] [place] [phone] Care Team Providers Care Manager Infrastructure Name Role Phone Shi Lancaster MD Primary Care Provide r Immunizations Immunization Administration Dates Next Due Moderna SARS-CoV-2 COVID-19, [...] 2024 , 01/29/2021, 04/03/2020, Additional history exists RSV Immunization Adult Patients (1 - 1-dose 75+ series) 10/19/2050 Hepatitis A Vaccines Aged Out 08/17/2012, 12/06/19 [...] Documents on File Type Date Recorded Patient Forms Analyst Expl anation Health Care Decision (hx) 10/17/2015 AD HERNANDEZ DIRECTIVE Health Care Decision (hx) 10/17/2015 AD HERNANDEZ DIRECTIVE Care Teams Manager Infrastructure Relationship Specialty Start Date End Date Shi Lancaster MD [address] [place] [phone] PCP - General 03/11/23
--- OUTSIDE RECORDS SUMMARY | 2024-12-20 11:47 | XMS_ITS | Encounter Summary ---
Author Organization [employer] Address [address] [facility] [address]t [place] [address] Care Team Providers Care Poundmaster Name Role Phone Shi Lancaster MD Primary Care Provide r Reason for Visit * Reason Onset Date Comments pt1 09/23/2024 Encounter Details Date Type Department Care Team (Late st Contact Info) Description 09/23/2024 Telephone [facility] MEDICINE 230 [place] [address] Shi Lancaster MD [address] [place] [address] pt1 Social History Tobacco Use Types Packs/Day [...] Y/N: Yes Provider name or facility name: [facility] Escort needed: Y/N: No Do you have a wheelchair: Y/N: No Visits: (2x month) Patient calling requesting PT1 Home Address verified: Y/N: Yes Provider name or facility name: [facility] [address] [facility] [address] Escort needed: Y/N: No Do you have a wheelchair: Y/N: No Visits: ( 3x month ) Patient calling requesting PT1 Home Address verified: Y/N: Yes Provider name or facility name: [address] [facility] [address] Escort needed: Y/N: No Do you have a wheelchair: Y/N: No Visits: (2x month ) documented in this encounter Plan of Treatment Upcoming Encounters Date Type Department Care Team (Late st Contact Info) Description 01/06/2025 11:30 AM EDT Office Visit [address] [address] Shi Lancaster MD [address] [place] [address] 02/28/2025 9:30 AM EST Clinical Support [address] [address] Sosa Horan, RN documented as of this encounter Visit Diagnoses Not on filedocumented in this encounter Additional Health Concerns Assessment Noted Time PHQ-9 Depression Total Score: 0 08/01/19 23 11:32 AM EDT documented as of this encounter Care Teams Poundmaster Relationship Specialty Start Date End Date Shi Lancaster MD [address] [place] [address] PCP - General Family Medicine 11/26/17 [facility] documented as of this encounter
--- OUTSIDE RECORDS SUMMARY | 2024-12-20 11:47 | XMS_ITS | Encounter Summary ---
Author Organization [employer] Address [address] [facility] [address] 7t [place] [address] Care Team Providers Care Torpedo Man Name Role Phone Shi Lancaster MD Primary Care Provide r Reason for Visit * Reason Onset Date Comments Med Refill 01/03/2024 Postop pain 01/03/2024 Encounter Details Date Type Department Care Team ([facility] st Contact Info) Description 01/03/2024 Refill [facility] MEDICINE 230 [place] [address] Shi Lancaster MD 230 [place] [address] Seropositive rheumatoid arthritis (CMS/HCC); Primary osteoarthritis of [...] to patient, interpretation provided by [facility] medical assistant cardiology, pt had his R TKA procedure done [...] Description 01/06/2025 11:30 AM EDT Office Visit [facility] MEDICINE [address] [place] [address] Shi Lancaster MD [address] [place] [address] 02/28/2025 9:30 AM EST Clinical Support [facility] MEDICINE [address] [place] [address] Sosa Horan RN documented as of this encounter Visit Diagnoses Diagnosis Seropositive rheumatoid arthritis (CMS/HCC) (HCC) Primary osteoarthritis of right knee documented in this encounter Additional Health Concerns Assessment Noted Time PHQ-9 Depression Total Score: 0 08/01/19 23 11:32 AM EDT documented as of this encounter Care Teams Torpedo Man Relationship Specialty Start Date End Date Shi Lancaster MD [address] [place] [address] PCP - General Family Medicine 11/26/17 Lakshmi JOSEPH 01/03/24 documented as of this encounter
--- OUTSIDE RECORDS SUMMARY | 2024-12-20 11:47 | XMS_ITS | Encounter Summary ---
Author Organization [employer] Address [address] [facility] [address] [place] [address] Care Team Providers Care Blasting Entry Specialist Name Role Phone Shi Lancaster MD Primary Care Provide r Reason for Visit * Reason Onset Date Comments Med Refill 01/11/2024 Encounter Details Date Type Department Care Team (Late st Contact Info) Description 01/11/2024 Refill [facility] MEDICINE 230 [place] [address] Shi Lancaster MD 230 [place] [address] Primary hypertension Social History Tobacco Use Types [...] Description 01/06/2025 11:30 AM EDT Office Visit [address] [address] Shi Lancaster MD [address] [place] [address] 02/28/2025 9:30 AM EST Clinical Support [address] [address] Sosa Horan, FIONA documented as of this encounter Visit Diagnoses Diagnosis Primary hypertension Unspecified essential hypertension documented in this encounter Additional Health Concerns Assessment Noted Time PHQ-9 Depression Total Score: 0 08/01/19 23 11:32 AM EDT documented as of this encounter Care Teams Blasting Entry Specialist Relationship Specialty Start Date End Date Shi Lancaster MD [address] [place] [address] PCP - General Family Medicine 11/26/17 [facility] 01/03/24 documented as of this encounter
--- OUTSIDE RECORDS SUMMARY | 2024-12-20 11:47 | XMS_ITS | Encounter Summary ---
Author Organization [employer] Address [address] [facility] 7t [place] [address] Care Team Providers Care Attendant Child Activity Name Role Phone Shi Lancaster MD Primary Care Provide r Reason for Visit * Reason Comments Med Refill Encounter Details Date Type Department Care Team (Late st Contact Info) Description 09/26/2022 Refill [facility] MEDICINE 230 [place] [address] Shi Lancaster MD 230 [place] [address] Acute deep vein thrombosis (DVT) of proximal [...] Department Care Team (Late Contact Info) Description 01/06/2025 11:30 AM EDT Office Visit [facility] MEDICINE 230 [place] [address] Shi Lancaster MD 230 [place] [address] 02/28/2025 9:30 AM EST Clinical Support [facility] MEDICINE [address] [place] [address] Sosa Horan RN documented as of this encounter Visit Diagnoses Diagnosis Acute deep vein thrombosis (DVT) of proximal vein of lower extremity, unspecified laterality (HCC) documented in this encounter Additional Health Concerns Assessment Noted Time PHQ-9 Depression Total Score: 0 08/01/19 11:32 AM EDT documented as of this encounter Care Teams Attendant Child Activity Relationship Specialty Start Date End Date Shi Lancaster MD [address] [place] [address] PCP - General Family Medicine 11/26/17 Lakshmi Tonie 01/03/24 documented as of this encounter
--- OUTSIDE RECORDS SUMMARY | 2024-12-20 11:47 | XMS_ITS | Encounter Summary ---
Author Organization [employer] Address [address] [facility] [address] 7[address] [place] [address] Care Team Providers Care Rail Assembler Name Role Phone Shi Lancaster MD Primary Care Provide r Reason for Visit * Reason Onset Date Comments Med Refill 03/22/2024 Encounter Details Date Type Department Care Team (Late st Contact Info) Description 03/22/2024 Refill [facility] MEDICINE [address] [place] [address] Shi Lancaster MD 230 [place] [address] Acute deep vein thrombosis (DVT) of proximal [...] Description 01/06/2025 11:30 AM EDT Office Visit [address] [address] Shi Lancaster MD [address] [place] [address] 02/28/2025 9:30 AM EST Clinical Support [address] [address] Sosa Horan RN documented as of this encounter Visit Diagnoses Diagnosis Acute deep vein thrombosis (DVT) of proximal vein of lower extremity, unspecified laterality (HCC) documented in this encounter Additional Health Concerns Assessment Noted Time PHQ-9 Depression Total Score: 0 08/01/19 23 11:32 AM EDT documented as of this encounter Care Teams Rail Assembler Relationship Specialty Start Date End Date Shi Lancaster MD [address] [place] [address] PCP - General Family Medicine 11/26/17 Lakshmi JOSEPH 01/03/24 documented as of this encounter
--- OUTSIDE RECORDS SUMMARY | 2024-12-20 11:47 | XMS_ITS | Encounter Summary ---
Author Organization [employer] Address 75 [facility] 7t [place] [address] Care Team Providers Care Tactical Response Group Officer Name Role Phone Shi Lancaster MD Primary Care Provide r Encounter Details Date Type Department Care Team (Latest Contact Info) Description 09/30/2018 Abstract [facility] CONVERSION[facility] Dental, Provider, DDS Social History [...] Description 01/06/2025 11:30 AM EDT Office Visit [facility] [address] [place] [address] Shi Lancaster MD [address] [place] [address] 02/28/2025 9:30 AM EST Clinical Support [facility] [address] [place] [address] Sosa Horan RN documented as of this encounter Visit Diagnoses Not on filedocumented in this encounter Care Teams Tactical Response Group Officer Relationship Specialty Start Date End Date Shi Lancaster MD [address] [place] [phone] PCP - General Family Medicine 11/26[facility]17 [facility] documented as of this encounter
--- OUTSIDE RECORDS SUMMARY | 2024-12-20 11:47 | XMS_ITS | Encounter Summary ---
Author Organization [employer] Address [address] [facility] [address] 7[address] [place] [address] Care Team Providers Care Bore Miner Operator Name Role Phone Shi Lancaster MD Primary Care Provide r Reason for Visit * Reason Onset Date Comments Med Refill 10/08/2023 Encounter Details Date Type Department Care Team (Late st Contact Info) Description 10/08/2023 Refill [facility] [address] [place] [address] Shi Lancaster MD 230 [place] [address] Seropositive rheumatoid arthritis (CMS/HCC); Primary osteoarthritis of [...] Description 01/06/2025 11:30 AM EDT Office Visit [facility] [address] [place] [address] Shi Lancaster MD [address] [place] [address] 02/28/2025 9:30 AM EST Clinical Support [facility] [address] [place] [address] Sosa Horan RN documented as of this encounter Visit Diagnoses Diagnosis Seropositive rheumatoid arthritis (CMS/HCC) ([facility]) Primary osteoarthritis of right knee documented in this encounter Additional Health Concerns Assessment Noted Time PHQ-9 Depression Total Score: 0 08/01/19 23 11:32 AM EDT documented as of this encounter Care Teams Bore Miner Operator Relationship Specialty Start Date End Date Shi Lancaster MD [address] [place] [address] PCP - General Family Medicine 11/26/17 Lakshmi A 01/03/24 documented as of this encounter
--- OUTSIDE RECORDS SUMMARY | 2024-12-20 11:47 | XMS_ITS | Encounter Summary ---
Author Organization [employer] Address [address] [facility] [address] 7[address] [place] [address] Care Team Providers Care Aged Or Disabled Care Worker Name Role Phone Shi Lancaster MD Primary Care Provide r Reason for Visit * Reason Onset Date Comments Med Refill 02/26/2024 Encounter Details Date Type Department Care Team (Late st Contact Info) Description 02/26/2024 Refill [facility] 230 [place] [address] Shi Lancaster MD 230 [place] [address] Chronic bilateral low back pain, unspecified whether [...] Description 01/06/2025 11:30 AM EDT Office Visit [facility] [address] [place] [address] Shi Lancaster MD [address] [place] [address] 02/28/2025 9:30 AM EST Clinical Support [address] [address] Sosa Horan, FIONA documented as of this encounter Visit Diagnoses Diagnosis Chronic bilateral low back pain, unspecified whether sciatica present Seropositive rheumatoid arthritis (CMS/HCC) (HCC) Primary osteoarthritis of right knee documented in this encounter Additional Health Concerns Assessment Noted Time PHQ-9 Depression Total Score: 0 08/01/19 11:32 AM EDT documented as of this encounter Care Teams Aged Or Disabled Care Worker Relationship Specialty Start Date End Date Shi Lancaster MD [address] [place] [address] PCP - General Family Medicine 11/26/17 Lakshmi JOSEPH 01/03/24 documented as of this encounter
--- OUTSIDE RECORDS SUMMARY | 2024-12-20 11:47 | XMS_ITS | Encounter Summary ---
Author Organization [employer] Address 75 [facility] 7t [place] [address] Care Team Providers Care Centrifugal Station Operator Name Role Phone Shi Lancaster MD Primary Care Provide r Reason for Visit * Reason Comments Med Refill Encounter Details Date Type Department Care Team (Late Contact Info) Description 06/12/2022 Refill [facility] MEDICINE 230 [place] [address] Keiry Joseph DO [address] [place] [address] Acute deep vein thrombosis (DVT) of proximal [...] Description 01/06/2025 11:30 AM EDT Office Visit [facility] MEDICINE [address] [place] [address] [phone] Shi Lancaster MD 230 [place], [place] [phone] 02/28/2025 9:30 AM EST Clinical Support [facility] MEDICINE [address] [place] [address] [phone] Marline, Sosa, RN documented as of this encounter Visit Diagnoses Diagnosis Acute deep vein thrombosis (DVT) of proximal vein of lower extremity, unspecified laterality (HCC) documented in this encounter Care Teams Centrifugal Station Operator Relationship Specialty Start Date End Date Shi Lancaster MD [address] [place] [address] PCP - General Family Medicine 11/26/17 [facility] documented as of this encounter
--- OUTSIDE RECORDS SUMMARY | 2024-12-20 11:47 | XMS_ITS | Encounter Summary ---
Author Organization [employer] Address [address] [facility] [address] 7[address] [place] [address] Care Team Providers Care Emotional Support Teacher Name Role Phone Shi Lancaster MD Primary Care Provide r Reason for Visit * Reason Onset Date Comments Med Refill 02/29/2024 Encounter Details Date Type Department Care Team (Late st Contact Info) Description 02/29/2024 Refill [facility] MEDICINE 230 [place] [address] Shi Lancaster MD 230 [place] [address] Primary hypertension Social History Tobacco Use Types [...] 01/06/2025 11:30 AM EDT Office Visit [address] [address] Shi Lancaster MD [address] [place] [address] 02/28/2025 9:30 AM EST Clinical Support [address] [address] Sosa Horan, FIONA documented as of this encounter Visit Diagnoses Diagnosis Primary hypertension Unspecified essential hypertension documented in this encounter Additional Health Concerns Assessment Noted Time PHQ-9 Depression Total Score: 0 08/01/19 23 11:32 AM EDT documented as of this encounter Care Teams Emotional Support Teacher Relationship Specialty Start Date End Date Shi Lancaster MD [address] [place] [phone] PCP - General Family Medicine 11/26/17 Lakshmi [facility] 01/03/24 documented as of this encounter
--- OUTSIDE RECORDS SUMMARY | 2024-12-20 11:47 | XMS_ITS | Encounter Summary ---
Author Organization [employer] Address [address] [facility] [address] [place] [address] Care Team Providers Care Workers Compensation Paralegal Name Role Phone Shi Lancaster MD Primary Care Provide r Reason for Visit * Reason Onset Date Comments Med Refill 12/04/2023 Encounter Details Date Type Department Care Team (Late st Contact Info) Description 12/04/2023 Refill [facility] MEDICINE 230 [place] [address] Shi Lancaster MD 230 [place] [address] Acute deep vein thrombosis (DVT) of proximal [...] Description 01/06/2025 11:30 AM EDT Office Visit [address] [address] Shi Lancaster MD [address] [place] [address] 02/28/2025 9:30 AM EST Clinical Support [address] [address] Sosa Horan RN documented as of this encounter Visit Diagnoses Diagnosis Acute deep vein thrombosis (DVT) of proximal vein of lower extremity, unspecified laterality (HCC) documented in this encounter Additional Health Concerns Assessment Noted Time PHQ-9 Depression Total Score: 0 08/01/19 23 11:32 AM EDT documented as of this encounter Care Teams Workers Compensation Paralegal Relationship Specialty Start Date End Date Shi Lancaster MD [address] [place] [phone] PCP - General Family Medicine 11/26/17 Laksmhi JOSEPH 01/03/24 documented as of this encounter
--- OUTSIDE RECORDS SUMMARY | 2024-12-20 11:47 | XMS_ITS | Encounter Summary ---
Author Organization [employer] Address 75 [facility] 7t [place] [address] Care Team Providers Care Industrial Plant Custodian Name Role Phone Shi Lancaster MD Primary Care Provide r Reason for Visit * Reason Onset Date Comments Med Refill 09/16/2022 Encounter Details Date Type Department Care Team (Late st Contact Info) Description 09/16/2022 Telephone [facility] MEDICINE 230 [place] [address] Shi Lancaster MD 230 [place] [address] Med Refill Social History Tobacco Use Types [...] Description 01/06/2025 11:30 AM EDT Office Visit [address] [address] Shi Lancaster MD [address] [place] [address] 02/28/2025 9:30 AM EST Clinical Support [address] [address] Sosa Horan RN documented as of this encounter Visit Diagnoses Not on filedocumented in this encounter Additional Health Concerns Assessment Noted Time PHQ-9 Depression Total Score: 0 08/01/19 11:32 AM EDT documented as of this encounter Care Teams Industrial Plant Custodian Relationship Specialty Start Date End Date Shi Lancaster MD [address] [place] [address] PCP - General Family Medicine 11/26/17 Lakshmi JOSEPH 01/03/24 documented as of this encounter
--- OUTSIDE RECORDS SUMMARY | 2024-12-20 11:47 | XMS_ITS | Encounter Summary ---
Author Organization [employer] Address 75 [facility] 7t [place] [address] Care Team Providers Care High School Music Teacher Name Role Phone Shi Lancaster MD Primary Care Provide r Reason for Visit * Reason Onset Date Comments Appointment Request 09/03/2022 Encounter Details Date Type Department Care Team ([facility] st Contact Info) Description 09/03/[address] [facility] MEDICINE [address] [place] [address] Shi Lancaster MD [address] [place] [address] Appointment Request Social History Tobacco Use Types [...] Description 01/06/2025 11:30 AM EDT Office Visit [address] [address] Shi Lancaster MD [address] [place] [address] 02/28/2025 9:30 AM EST Clinical Support [address] [address] Sosa Horan RN documented as of this encounter Visit Diagnoses Not on filedocumented in this encounter Additional Health Concerns Assessment Noted Time PHQ-9 Depression Total Score: 0 08/01/19 11:32 AM EDT documented as of this encounter Care Teams High School Music Teacher Relationship Specialty Start Date End Date Shi Lancaster MD [address] [place] [address] PCP - General Family Medicine 11/26/17 Lakshmi NELSONA 01/03/24 documented as of this encounter
--- OUTSIDE RECORDS SUMMARY | 2024-12-20 11:47 | XMS_ITS | Encounter Summary ---
Author Organization [employer] Address [address] [facility] [address] 7[address] [place] [address] Care Team Providers Care Air Value Tester Name Role Phone Shi Lancaster MD Primary Care Provide r Reason for Visit * Reason Onset Date Comments Appointment Request 06/26/2023 Encounter Details Date Type Department Care Team ([facility] st Contact Info) Description 06/26/2023 Telephone [facility] MEDICINE 230 [place] [address] Shi Lancaster MD [address] [place] [address] Appointment Request Social History Tobacco Use Types [...] Description 01/06/2025 11:30 AM EDT Office Visit [facility] MEDICINE [address] [place] [address] Shi Lancaster MD 230 [place] [address] 02/28/2025 9:30 AM EST Clinical Support [address] [address] Sosa Horan, RN documented as of this encounter Visit Diagnoses Not on filedocumented in this encounter Additional Health Concerns Assessment Noted Time PHQ-9 Depression Total Score: 0 08/01/19 23 11:32 AM EDT documented as of this encounter Care Teams Air Value Tester Relationship Specialty Start Date End Date Shi Lancaster MD 230 [place] [address] PCP - General Family Medicine 11/26/17 Lakshmi [facility] 01/03/24 documented as of this encounter
--- OUTSIDE RECORDS SUMMARY | 2024-12-20 11:47 | XMS_ITS | Clinical Summary ---
Author Organization [employer] Address [address] [facility] [address] [place] [address] Care Team Providers Care Edi Analyst Name Role Phone Shi Lancaster MD [...] EVERY MORNING 90 tablet 1 025 Active losartan (Cozaar) 100 MG tabletIndications :Primary hypertension TAKE 1 TABLET BY MOUTH EVERY MORNING 90 tablet 1 025 Active cyclobenzaprine (Flexeril) 10 MG tabletIndications :Osteoarthritis of right knee, unspecified osteoarthritis type TAKE 1 TABLET BY MOUTH EVERY 8 HOURS 90 tablet 025 Active apixaban (Eliquis) 5 MG tabletIndications :Acute deep vein thrombosis (DVT) of proximal vein of lower extremity, unspecified laterality (HCC) TOME 1 TABLETA POR VIA ORAL DOS VECES AL TL 60 tablet 025 Active pantoprazole (ProtoNix) 40 MG EC tablet TOME JV TABLETA POR VIA ORAL CADA MANANA 90 tablet 025 Active oxyCODONE (Roxicodone) 5 MG immediate release tabletIndications :Chronic bilateral low back pain, unspecified whether sciatica present Take 1 tablet (5 mg) by mouth every 8 (eight) hours if needed for severe pain for up to 28 days. Do not start before December 03, 2024. 84 tablet 025 2024 Active hydroCHLOROthiazi de 12.5 MG tabletIndications :Primary hypertension TAKE 1 TABLET BY MOUTH EVERY MORNING 90 tablet 1 025 Active pantoprazole (ProtoNix) 40 MG EC tablet TAKE 1 TABLET BY MOUTH EVERY MORINING 90 tablet 025 2024 Discontinued hydroCHLOROthiazi de 12.5 MG tabletIndications :Primary hypertension TAKE 1 TABLET BY MOUTH EVERY MORNING 90 tablet 025 2024 Discontinued oxyCODONE (Roxicodone) 5 MG immediate release tabletIndications :Chronic bilateral low back pain, unspecified whether sciatica present Take 1 tablet (5 mg) by mouth every 8 (eight) hours if needed for severe pain for up to 28 days. 84 tablet 025 2024 Discontinued(R eorder (will not trigger notification to Pharmacy)) oxyCODONE (Roxicodone) 5 MG immediate release tabletIndications :Chronic bilateral low back pain, unspecified whether sciatica present Take 1 tablet (5 mg) by mouth every 8 (eight) hours if needed for severe pain for up to 8 days. 24 tablet 025 2024 Discontinued(R eorder (will not trigger notification to Pharmacy)) Active Problems Problem Noted Date Diagnosed Date longterm (current) use of opiate analgesic 05/15 Rheumatoid arthritis involvi ng multiple sites with positive rheumatoid factor ([facility]) 05/14/2024 Assessment & Plan (05/14/2024 4:32 PM EST): Continue to follow with rheumatology I will continue with same dose of oxycodone 5 mg every 8 hours as needed for pain control Sinus tachycardia 05/14/2024 Assessment & Plan (05/14/2024 4:31 PM EST): Mammography Supervisor is aware of his sinus tachycardia and [...] evaluated for electric wheelchair Seropositive rheumatoid arthritis ([facility]/HCC) 01/16 Assessment & Plan (10/13/2023 11:38 AM EDT): Continue to follow with rheumatology C/w same percocet dose for pain patient will follow up with PROCESS CONTROL OPERATOR nurse I will inquire about electric wheelchair evaluation Assessment & Plan (07/11/2023 10:27 AM EDT): Continue to follow with rheumatology Patient also awaiting to be evaluated for electric wheelchair Assessment & Plan (03/07/2023 12:08 PM EST): Patient will be evaluated for electric wheelchair Assessment & Plan (07/31/2022 3:37 PM EDT): Continue to follow with specialist Hypertriglyceridemia 10/14/2016 Nonalcoholic steatohepatitis 10/14/2016 Post-traumatic epilepsy ([facility]) 08/17/2012 Hypertension 11/25/2011 Assessment & Plan (05/14/2024 [...] Encounters Date Type Department Care Team Description 12/10/2024 Refill [facility] [address] [place] [address] Shi Quiñones MD Primary hypertension 12/02/2024 10:00 AM EDT Clinical Support [facility] [address] [place] [address] Sosa Horan, RN Long-term current use of opiate analgesic (Primary Dx) 12/02/2024 Refill [facility] [address] [place] [address] Sosa Horan financial service rep bilateral low back pain, unspecified whether sciatica present 12/02/2024 Travel 11/25/2024 Refill [facility] [address] [place] [address] Shi Lancaster MD Chronic bilateral low back pain, unspecified whether sciatica present 11/25/2024 Travel 11/22/2024 Refill [facility] [address] [place] [address] Yenny Shea MD 11/18/2024 Refill [facility] [address] [place] [address] Shi Lancaster MD Acute deep vein thrombosis (DVT) of proximal vein of lower extremity, unspecified laterality (CMS/HCC) 11/11/2024 Refill [facility] [address] [place] [address] Yenny Shea MD Osteoarthritis of right knee, unspecified osteoarthritis type 11/08/2024 Telephone [facility] [address] [place] [address] Shi Lancaster MD Housing Form (I called the patient regarding a reasonable accommodation form, from the [employer]. He needs to state what accommodation he is requesting. I reached a voicemail, and left a message asking him to return my call at ext [phone].) 10/25/2024 Refill [facility] [address] [place] [address] Shi Lancaster MD Chronic bilateral low back pain, unspecified whether sciatica present 10/18/2024 Refill [facility] [address] [place] [address] Shi Lancaster MD Acute deep vein thrombosis (DVT) of proximal vein of lower extremity, unspecified laterality (CMS/HCC) 10/13/[address] [address] Shi Lancaster MD Osteoarthritis of right knee, unspecified osteoarthritis type 10/11/2024 Orders Only GENERIC EXTERNAL DATA DEPARTMENT Provider, Generic External Data 10/06/2024 Orders Only [facility] External Provider, [facility] 09/28/2024 Patient Outreach [address] [address] Shi Lancaster MD Pre-visit Planning (SDOH screening completed on 04/30/2024) 09/23/2024 Patient Outreach [address] [address] Shi Lancaster MD Care Coordination ([facility] outreach for SDOH PT-1 and food needs-referral completed /) 09/23/[address] [address] Shi Lancaster MD pt1 09/23/[address] [address] Shi Lancaster MD Chronic bilateral low back pain, unspecified whether sciatica present from Last 3 Months Immunizations Immunization Administration [...] Description 01/06/2025 11:30 AM EDT Office Visit [facility] [address] [place] [phone] Shi Lancaster MD [address] [place] [address] 02/28/2025 9:30 AM EST Clinical Support [facility] [address] [place] [phone] Sosa Horan, FIONA Health Maintenance Due Date Last Done Comments [...] Dental Prophylaxis 10/08/2023 04/08/2023, 0 04/14/2019, 09/30/2018 Dental X-Ray: Bitewings 04/09/2024 04/08/19 24, 07/29/2018, 06/10/2016 COVID-19 Vaccine ( season) 2024 03/07/2023, 12/19/2021, 05/18/2021, Additional history exists Influenza Vaccine (#1) 2024 , 12/20/2022, 01/29/2021, [...] Comments POCT BIENVENIDO-14 URINE DRUG SCREEN Routine 12/02/2024 10:57 AM EDT Long-term current use of opiate analgesic LIPID PANEL, STANDARD Routine 10/11/2024 10:25 AM [...] 2-3 VIEWS Routine 10/06/2024 2:15 PM EDT HEPATITIS PANEL, GENERAL Routine 05/14/2023 2:15 PM [...] Results * POCT BIENVENIDO-14 Urine Drug Screen (12/02/2024 10:57 AM EDT) THC Negative Negative Cocaine Screen, Urine Negative Negative Opiate Screen, Urine Negative Negative Methamphetamine Screen Urine Negative Negative Amphetamine Screen, Urine Negative Negative Benzodiazepines Screen, Urine Negative Negative Barbiturate Screen, Urine Positive Negative Methadone Screen, Urine Negative Negative Buprenophine Screen, Urine Negative Negative TCA, Urine Positive Negative MDMA Urine Negative Negative ng/mL Oxycodone Screen, Urine Positive Negative Phencyclidine (PCP), Urine Negative Negative Propoxyphene, Urine Negative Negative Fentanyl, Urine Negative Negative Urine Urine specimen obtained by clean catch procedure / Unknown 12/02/2024 10:57 AM EDT Sosa Bergeron, FIONA - 12/02/2024 10:57 AM EDT UTOX cup Lot#[id number] Exp. 12/21/25 Internal Pass Control Shi Gage MD POINT OF CARE TEST EN TER/EDIT ORDERABLES Final Result * (ABNORMAL) CBC auto differential (10/11/2024 10:25 AM EDT) Only the most recent of2 resultswithin the time period is included. White Blood Count 5.1 4.8 - 10.8 X10*3/uL [facility] Red Blood Count 4.32(L) 4.60 - 5.80 X10*6/uL [facility] Hemoglobin 15.0 14.0 - 18.0 g/dl [facility] Hematocrit 41.8(L) 42.0 - 52.0 % [facility] Mean Corpuscular Volume 96.8 80.0 - 98.0 fL [facility] Mean Corpuscular Hemoglobin 34.7(H) 27.0 - 33.0 pg [facility] Mean Corpuscular HGB Conc 35.9 31.0 - 36.0 g/dl [facility] Red Cell Distribution Width 12.8 11.0 - 16.0 % [facility] Platelet Count 163 160 - 400 X10*3/uL [facility] Mean Platelet Volume 9.9 9.4 - 12.4 fL [facility] Neutrophils Percent Auto 57.3 45 - 73 % [facility] Imm Gran Pct Auto 0.4 0.0 - 0.4 % [facility] Lymphocytes Percent Auto 30.0 20 - 40 % [facility] Monocytes Percent Auto 9.6 2 - 11 % [facility] Eosinophils Percent Auto 2.1 0 - 4 % [facility] Basophils Percent Auto 0.6 0 - 2 % [facility] NRBC Pct Auto 0.0 0.0 - 0.2 /100WBC [facility] Neutrophils Absolute Auto 2.9 2.0 - 8.3 x10*3/uL [facility] Imm Gran Abs Auto 0.02 0.00 - 0.03 X10*3/uL [facility] Lymphocytes Absolute Auto 1.5 1.2 - 4.9 X10*3/uL [facility] Monocytes Absolute Auto 0.5 0.1 - 1.2 X10*3/uL [facility] Eosinophils Absolute Auto 0.1 0.0 - 0.4 X10*3/uL [facility] Basophils Absolute Auto 0.0 0.0 - 0.2 X10*3/uL [facility] NRBC Abs Auto 0.000 0.0 - 0.012 X10*3/uL [facility] 10/11/2024 10:2 5 AM EDT 10/11/2024 10:25 AM EDT us Generic External Data Provider LAB BLOOD ORDERAB LES Final Result Performing Organization Address [facility] Co de Phone Number [facility] [address] [place] [address] [phone] * Sed Rate by Modified Isak (10/11/2024 10:25 AM EDT) Only the most recent of2 resultswithin the time period is included. Erythrocyte Sedimentation Rate 3 0 - 15 MM/HR [facility] Comment:Patients with polycy themia and many hemoglobin abnormalitiesmay have depressed sed rates whereas patients with anemiamay have elevated sed rates. 10/11/2024 10:2 5 AM EDT 10/11/2024 10:25 AM EDT us Generic External Data Provider LAB BLOOD ORDERAB LES Final Result Performing Organization Address [facility] Co de Phone Number [facility] [address] [place] [address] [phone] * C-reactive Protein (10/11/2024 10:25 AM EDT) Only the most recent of2 resultswithin the time period is included. C Reactive Protein <0.04 < or = 0.50 mg/dL [facility] 10/11/2024 10:2 5 AM EDT 10/11/2024 10:25 AM EDT Generic External Data Provider LAB BLOOD ORDERAB LES Final Result Performing Organization Address [facility]/ZIP Co de Phone Number [facility] [address] [place] [phone] * Uric acid (10/11/2024 10:25 AM EDT) Only the most recent of2 resultswithin the time period is included. Uric Acid 4.2 3.4 - 7.0 mg/dL [facility] 10/11/2024 10:2 5 AM EDT 10/11/2024 10:25 AM EDT Generic External Data Provider LAB BLOOD ORDERAB LES Final Result Performing Organization Address [facility] Co de Phone Number [facility] [address] [place] [phone] * (ABNORMAL) Lipid Panel, Standard (10/11/2024 10:25 AM EDT) Triglycerides 192(H) <150 mg/dL [facility] Comment:Desirable Triglyceri de: less than 150 mg/dLBorderline High Triglyceride 150-199 mg/dLHigh Triglyceride: 200-499 mg/dLVery High Triglyceride: greater than or equal to 5OO mg/dL Cholesterol 239(H) <200 mg/dL [facility] Comment:Desirable Cholestero l: less than 200 mg/dLBorderline High Cholesterol: 200-239 mg/dLHigh Cholesterol: greater than 239 mg/dL LDL Cholesterol Calculated 151(H) <100 mg/dL [facility] Comment:Desirable LDL: less than 100 mg/dLNear Optimal/Above Optimal LDL: 110- 129 mg/dLBorderline High LDL: 130-159 mg/dLHigh LDL: 160-189 mg/dLVery High LDL: greater than or equal to 190 mg/dL HDL Cholesterol 50 >40 mg/dL [facility] Comment:Desirable HDL: great er than 40 mg/dL Note: This HDL assay may give artificially low results in patients with liver disease. 10/11/2024 10:2 5 AM EDT 10/11/2024 10:25 AM EDT us Generic External Data Provider LAB BLOOD ORDERAB LES Final Result [facility] [address] [place] [address] [phone] * (ABNORMAL) Comprehensive Metabolic Panel (10/11/2024 10:25 AM EDT) Only the most recent of2 resultswithin the time period is included. Sodium 140 135 - 145 mmol/L [facility] Potassium 3.2(L) 3.3 - 5.1 mmol/L [facility] Chloride 102 96 - 108 mmol/L [facility] Carbon Dioxide 26 22 - 29 mmol/L [facility] Anion Gap 15 12 - 20 [facility] Urea Nitrogen (BUN) 14 9 - 16 mg/dL [facility] Creatinine, Serum 0.98 0.5 - 1.4 mg/dL [facility] Estimated Glomerular Filt Rate >60 [facility] Comment:Chronic Kidney Disea se: Estimated GFR < 60 mL/min/[id number] Kidney Disease: Estimated GFR < 15 mL/min/1.73m2 Glucose 114 60 - 115 mg/dL [facility] Calcium 9.8 8.4 - 10.2 mg/dL [facility] Bilirubin, Total 0.4 0.0 - 1.0 mg/dL [facility] Aspartate Amino Transferase 26 5 - 37 U/L [facility] Alanine Aminotransferase 39 0 - 40 U/L [facility] Total Protein 7.3 6.5 - 8.0 g/dL [facility] Albumin Level 4.7 3.5 - 5.0 g/dL [facility] Alkaline Phosphatase 84 39 - 117 U/L [facility] 10/11/2024 10:2 5 AM EDT 10/11/2024 10:25 AM EDT us Generic External Data Provider LAB BLOOD ORDERAB LES Final Result Performing Organization Address City/State/[facility] Co de Phone Number [facility] [address] [place] [phone] * XR Lumbar Spine 2-3 Views (10/06/2024 2:15 PM EDT) Anatomical Region Laterality Modality Spine, L-spine Radiographic Patricia ging 10/06/2024 2:15 PM EDT Narrative 10/06/2024 3:26 PM EDT [address] [address] XRay Report Signed Patient: Gómez Pelletier MR#: [id number] : 1975 Acct:[id number] Age/Sex: 48 / M ADM Date: 10/06/24 Loc: HO.ED Attending Dr: Ordering Physician: Gely Charles NP Date of Service: 10/06/24 Procedure(s): XR lumbar spine 2-3V Accession Number(s): [id number] cc: Shi Lancasetr MD; Gely Charles NP EXAMINATION: XR LUMBOSACRAL [...] 10/06/24 1522 DD/ 1415 TD/TT: 10/06/24 1515 Business Systems Architect: Procedure Note Donotuseinterpreter, Image - 10/06/[address] [address] XRay Report Signed Patient: Gómez Pelletier MMR#: [id number] : 1975Acct:[id number] Age/Sex: 48 / MADM Date: 10/06/24 Loc: .ED Attending Dr: Ordering Physician: Gely Charles NP Date of Service: 10/06/24 Procedure(s): XR lumbar spine 2-3V Accession Number(s): [id number] cc: Shi Lancaster MD; Gely Charles NP [...] OV> 10/06/24 1522 DD/ 1415 TD/TT: 10/06/24 151 Business Systems Architect: [facility] External Provider IMG XR PROCEDURES Final Result * Hepatitis Panel, General (05/14/2023 2:15 PM EST) Hepatitis A IgM Nonreactive Nonreactive [facility] Comment:IgM antibodies to NUNEZ V not detected; does not exclude earlyacute or recovered HAV infection. ~Hepatitis B Surface Antibody NONREACTIVE Nonreactive [facility] Comment:Nonreactive: < 8.00 mIU/mL Hepatitis B Core Antibody Nonreactive Nonreactive [facility] Hepatitis C Antibody Nonreactive Nonreactive [facility] Comment:Antibodies to HCV no t detected; does not exclude early acuteHCV infection. Hepatitis B Surface Ag Negative Negative [facility] 05/14/2023 2:15 PM EST 05/14/2023 2:15 PM EST us Generic External Data Provider LAB BLOOD ORDERAB LES Final Result Performing Organization Address City/State/[facility] Co de Phone Number [facility] [address] [place], [place] [phone] from Last 3 Months or Most Recently Relevant to Health Maintenance Insurance [facility] C[place] STAND [address] [address] [place] [id number] Care Teams Edi Analyst Relationship Specialty Start Date End Date Shi Lancaster MD [address] [place] [phone] PCP - General Family Medicine 11/26/17 [facility] 01/03/24
== END 2024-12-20 10:10 | disposition home or self-care (01) ==
LOC: HO.HOSX 10:09
PROVIDERS: Visit Provider Orthopaedic Surgery
DX: Z13.89 Encounter for screening for other disorder (principal)

== ENCOUNTER 2025-01-18 10:49 | Outpatient (AMB) | payer MEDICAID, SELFPAY ==
--- NOTE | 2025-01-18 11:08 | MHC.OFFVIS ---
Vital Signs 01/18/25 11:11 Height 5 ft 10 in Weight 304 lb 6 oz BMI 43.7 BP 118/76 Blood Pressure Location Rt brachial Position Sitting Pulse 107 H Pulse Source Pulse Oximeter Pulse Oximetry (%) 92 Oxygen Delivery Method Room Air Intake Visit Reasons: 3 mnts f/u Intake Note: Patient presents follow up KRZYSZTOF. Compliance in chart(90/90days, >=4hrs- 100%, Average Usage-10hr 25min, IPAP-21cm, EPAP-17cm, Med Leaks-88.9, AHI-9.6). Software Engineering Supervisor Required: Yes Software Engineering Supervisor Services: Software Engineering Supervisor Present Software Engineering Supervisor Name: [id number] [id number] Information Interpreted: non-clinical & clinical Accompanied by: Self / Same As Patient Allergies celecoxib Allergy (Severe, Verified 01/18/25 11:18) Anaphylaxis Sulfa (Sulfonamide Antibiotics) (SULFA (SULFONAMIDE ANTIBIOTICS)) Allergy (Severe, Verified 01/18/25 11:18) DIFFICULTY BREATHING, RASH, rash, hypertension HPI Comments Details: 49 y/o male with epilepsy disorder presents for sleep apnea follow up visit. KRZYSZTOF Compliance Report August 2024- Total use is 90/90 days and >4 hours 100%, Avg use is 10 hour and 25 min. IPAP 21/EPAP [id number] Med Leaks Press 88.9 and AHI is 9.6/hr He washes his mask, rinses hoses, changes filters, fills hoses with water. Pt was diagnosed with epilepsy disorder with Dr. Lira and is managed on phenobarbital, he does not drive. He has sleep apnea diagnosed 10 years ago and has been using the original CPAP since. His mask does not fit well and he has lots of leaks, is filtering air from the sides and below the lip. His AHI is elevated to 9.6/hr. He is using his cpap and has non refreshing sleep some days with hypersomnia. He falls asleep around 3 pm and takes a nap about 2-3 hrs daily, we discussed modification of sleep habits. BMI is elevated 43, he is 304lbs today and unable to walk long distances since surgical procedure, he is less active due to degenerative lumbar pain and uses his walker daily. He is starting Zepbound next week. He needs help with all his ADLs. RLS with pins, needles and urge to move his legs all night long, he takes Gabapentin 100mg po BID. He denies migraines now, will occasionally have a headache which resolves with Sumatriptan, prn. Memory is stable he remembers appts, medications, names of his friends, words, locations, days of the week. Mood and diet are stable. [facility] Medical History Osteoarthritis Arthritis GERD (gastroesophageal reflux disease) On anticoagulant therapy Spinal stenosis of lumbar region at multiple levels Screening examination for infectious disease Chronic tophaceous gout Right leg DVT Rheumatoid arthritis Tachycardia Lumbar radiculopathy HTN (hypertension) Rheumatoid arthritis Sleep apnea History of epilepsy Surgical History History of knee replacement Hx of exploratory laparotomy Hx of bariatric surgery History of spinal surgery Family History Maternal Uncle Colon cancer Paternal Aunt Breast cancer Mother Pacemaker Sister Pacemaker Social History Household Members: Spouse Housing: Apartment Are you a primary day care director to a significant other at home: No Do you presently have visiting nurse or other home services: No Alcohol intake: never Comment: bathroom Patient Tobacco Use Status: Never used Tobacco e-Cigarette/Vaping Use: Never Used service: No Current occupational status: disabled Review of Systems ENT Reports Normal hearing present Neuro Reports Normal hearing present Physical Exam Vital Signs: Last Vital Signs Pulse 107 H 01/18/25 11:11 BP 118/76 01/18/25 11:11 Pulse Ox 92 01/18/25 11:11 Oxygen Delivery Method Room Air 01/18/25 11:11 BMI result Body Mass Index 43.7 Const General: cooperative and tired appearing Nutritional Appearance: obese Orientation/consciousness: patient oriented x3 Limitations: language barrier Eyes Pupils: Equal, round and reactive pupils present Neuro General: patient oriented x3 Cranial nerves: Yes Equal, round and reactive pupils present, Yes Bilaterally intact EOM present, Yes Normal facial strength present, Yes Midline tongue present, Yes Symmetric palate elevation present, Yes Normal hearing present, Yes Ability to bilaterally rotate head present and Yes Ability to bilaterally elevate shoulders present Cognition (Neuro): normal cognition Gait exam (Neuro): Normal gait present Motor exam (neuro): 5/5 motor strength present throughout, Pronator motor function not present and no tremor noted Psych Appearance: grossly normal Affect: normal affect Attitude: cooperative Thought process: Normal thought process present Thought content: Normal thought content present Results Reviewed Results Reviewed: KRZYSZTOF Compliance Report August 2024- Total use is 90/90 days and >4 hours 100%, Avg use is 10 hour and 25 min. IPAP 21/EPAP [id number] Med Leaks Press 88.9 and AHI is 9.6/hr He washes his mask, rinses hoses, changes filters, fills hoses with water. Assessment & Plan Assessment & Plan (1) KRZYSZTOF (obstructive sleep apnea): Comment: Severe degree of sleep apnea. The AHI was 90/hr and oxygen ben was 79%. Code(s): G47.33 - Obstructive sleep apnea (adult) (pediatric) Category: Medical (2) Morbid obesity: Code(s): E66.01 - Morbid (severe) obesity due to excess calories Category: Medical (3) Lumbar radiculopathy: Code(s): M54.16 - Radiculopathy, lumbar region Category: Medical (4) Excessive daytime sleepiness: Code(s): G47.19 - Other hypersomnia Category: Medical Plan KRZYSZTOF on bipap . Titration is needed, his AHI is still elevated to 9.6 and the pressures are smothering him. Needs an adjustment of pressures and mask fitting. will send him for a titration study. Lumbar radiculopathy with RLS continue Gabapentin Mask fitting Airfit F20 large mask rx BMI is elevated pt is limited with physical activities, and will start zepbound soon, per weight management. Lab reviewed with pt. Orders: Orders RT PSG in-lab sleep titration 01/18/25 E66.01 - Morbid (severe) obesity due to excess calories, G47.33 - Obstructive sleep apnea (adult) (pediatric) Methylmalonic Acid Today G47.19 - Other hypersomnia, G47.9 - Sleep disorder, unspecified, R53.83 - Other fatigue Vitamin B12 and Folate Today G47.19 - Other hypersomnia Ferritin Today G47.19 - Other hypersomnia Homocysteine Today G47.19 - Other hypersomnia, G47.9 - Sleep disorder, unspecified, R53.83 - Other fatigue IRON PROFILE Today G47.19 - Other hypersomnia, G47.9 - Sleep disorder, unspecified, R53.83 - Other fatigue Vitamin D 25-OH Total Today G47.19 - Other hypersomnia Patient Instructions: Please complete the following fasting labs to rule out deficiencies. CBC/CMP/ B12/ Vit D/ TSH/ Homocysteine and MMA/ Ferritin. Sleep Hygiene provided: set a scheduled bedtime and wake time to help regulate the circadian rhythm and balance the release of pituitary hormones. Sleep in a dark room, temperatures below 68 degrees, and no devices n bed. Limit caffeinated products 6 hours prior to bed, and limit fluids 2-4 hours prior to bed. Gentle night yoga, diffusing essential oils, and playing soft music can be relaxing. Coding Level of Care Code Est Pt Level 4 (79227) Diagnoses KRZYSZTOF (obstructive sleep apnea) G47.33 Morbid obesity E66.01 Lumbar radiculopathy M54.16 Excessive daytime sleepiness G47.19
[2025-01-18 11:11] VITALS: BP 118/76; PULSE 107; O2SAT 92; BMI 43.7
--- OUTSIDE RECORDS SUMMARY | 2025-01-18 13:04 | XMS_ITS | Clinical Summary ---
Author Organization [facility] Address [address] [place] [id number] Care Team Providers Care Director Of Regulatory Affairs Name Role Phone Shi Lancaster MD Primary [...] Documents on File Type Date Recorded Patient Yardage Estimator Expl anation Health Care Decision (hx) 10/17/2015 AD HERNANDEZ DIRECTIVE Health Care Decision (hx) 10/17/2015 AD HERNANDEZ DIRECTIVE Care Teams Director Of Regulatory Affairs Relationship Specialty Start Date End Date Shi Lancaster MD [address] [place] [phone] PCP - General 03/11/23
== END 2025-01-18 11:50 | disposition home or self-care (01) ==
LOC: HO.HSMS 10:49
PROVIDERS: PCP Internal Medicine; Visit Provider Physician Assistant Medical
DX: G47.33 Obstructive sleep apnea (adult) (pediatric) (principal); E66.01 Morbid (severe) obesity due to excess calories; M54.16 Radiculopathy, lumbar region; G47.19 Other hypersomnia
CPT/HCPCS: 99214

== ENCOUNTER → 2025-01-18 10:49 | Outpatient (BNVA) | payer MEDICAID, SELFPAY | PROVIDERS: PCP Internal Medicine; Visit Provider Physician Assistant Medical | DX: G47.33 Obstructive sleep apnea (adult) (pediatric) (principal); E66.01 Morbid (severe) obesity due to excess calories; M54.16 Radiculopathy, lumbar region; G47.19 Other hypersomnia; Z99.89 Dependence on other enabling machines and devices | CPT/HCPCS: 99212 ==

== ENCOUNTER 2025-01-20 12:38 | Outpatient (AMB) | payer MEDICAID, SELFPAY ==
--- NOTE | 2025-01-20 13:36 | A.OFFVIS_ITS ---
Vital Signs 01/20/25 13:42 Height 5 ft 10 in Weight 306 lb 14.135 oz BMI 44.0 BP 124/90 H Blood Pressure Location Lt radial Position Sitting Pulse 114 H Pulse Source Pulse Oximeter Pulse Oximetry (%) 97 Oxygen Delivery Method Room Air Intake Visit Reasons: Gout/RA Intake Note: Patient presents for Gout/RA follow up. Assayer Required: Yes Assayer Language: Kitchen Helper Services: Assayer Present Assayer Name: Delphine [id number] Information Interpreted: non-clinical & clinical Allergies celecoxib Allergy (Severe, Verified 01/20/25 13:41) Anaphylaxis Sulfa (Sulfonamide Antibiotics) (SULFA (SULFONAMIDE ANTIBIOTICS)) Allergy (Severe, Verified 01/20/25 13:41) DIFFICULTY BREATHING, RASH, rash, hypertension Medication List - Last Reconciled 01/20/25 by Rosalind Bloom MD allopurinol 600 mg (2 x 300 mg) PO DAILY allopurinol 100 mg PO BID apixaban (Eliquis) 2.5 mg PO BID cane As directed colchicine 0.6 mg PO BID cyclobenzaprine 10 mg PO Q8H diclofenac sodium 1% (Voltaren Arthritis Pain) 4 grams topical QID PRN gabapentin 200 mg (2 x 100 mg) PO BID hydrochlorothiazide 12.5 mg PO DAILY losartan 100 mg PO DAILY oxycodone 10 mg PO Q8H PRN pantoprazole 40 mg PO DAILY@0630 phenobarbital 194.4 mg (2 x 97.2 mg) PO BEDTIME 90 days phenytoin sodium extended (Dilantin Extended) 200 mg PO TID prednisone 5 mg PO DIRECTED sumatriptan succinate take 1 tab at onset of headache; if no relief, may repeat 1 tab after at least 2 hrs; max = 2 tabs/24 hrs PO 30 days terbinafine HCl 1% (Antifungal (terbinafine)) 1 appl topical BID 15 days tirzepatide (weight loss) (Zepbound) 2.5 mg subcut QWEEK tocilizumab (Actemra ACTPen) 162 mg (0.9 mL) subcut QWEEK walker Folding front wheeled walker HPI Comments Details: Patient is a 49 year old male with GERD, HTN, history of DVT, tophaceous gout and RA here today for follow up Interval History: Patient last seen 10/06/24 with me - On Allopurinol 700 mg daily, colchicine 0.6 mg Twice daily and Actemra 162mg SC weekly - Complaining of fatigue especially with exertion - Feels like the medication is not working: feels pain in his back, legs, and shoulder - Back pain. Known to have degenerative disc disease. Pain has gotten worse in the past 3 months and he is concered - Also complaining of a rash in his back. Stated that he has had it for a long time but its getting worse - No gout flares since the last visit - Given prednisone taper Today - On Allopurinol 700 mg daily, colchicine 0.6 mg Twice daily and Actemra 162mg SC weekly - Took the prednisone course and found that it was helpful - Overall doing well today - Complaining of back pain as well as left hip, knee and ankle pain - Feels like the pain starts in the hip and then radiates down Rheumatologic History: RA Enbrel 2012-to April 2018 active disease on exam Humira April 2018-January 2021 active disease on exam Clra January 2021-present -placed on hold 03/06/2022 due to hospital admission for potential infection of the left elbow, final diagnosis olecranon gouty bursitis. The subsequent DMARD treatment for RA stopped. The patient was treated for tophaceous gout Kevzara restarted 05/2023 not effective Actemra 09/2023 effective Gout 02/2022: MSU crystals in aspirate of left olecranon 02/2022 Started on allopurinol, colchicine, prednisone 08/20/2022 Canakinumab added for acute gout prevention - stopped at some point (unsure of when) Current Rheumatology Medication(s): Allopurinol 700mg daily Colchicine 0.6mg bid Actemra 162mg every week [facility] Medical History Osteoarthritis Arthritis GERD (gastroesophageal reflux disease) On anticoagulant therapy Spinal stenosis of lumbar region at multiple levels Screening examination for infectious disease Chronic tophaceous gout Right leg DVT Rheumatoid arthritis Tachycardia Lumbar radiculopathy HTN (hypertension) Rheumatoid arthritis Sleep apnea History of epilepsy Surgical History History of knee replacement Hx of exploratory laparotomy Hx of bariatric surgery History of spinal surgery Family History Maternal Uncle Colon cancer Paternal Aunt Breast cancer Mother Pacemaker Sister Pacemaker Social History Household Members: Spouse Housing: Apartment Are you a primary healthcare representative to a significant other at home: No Do you presently have visiting nurse or other home services: No Alcohol intake: never Comment: bathroom Patient Tobacco Use Status: Never used Tobacco e-Cigarette/Vaping Use: Never Used service: No Current occupational status: disabled Review of Systems Narrative Review of Systems Constitutional: Denies fever, chills, weight loss ENT: Denies vision changes, eye pain or eye redness, dental caries, dry mouth GI: Denies nausea, vomiting, diarrhea, abdominal pain, change in BM Pulm: Denies SOB, WOO, hemoptysis, wheezing Cards: Denies chest pain, palpitations Skin: Denies Raynaud's, rash, nail changes, photosensitivity, BUCKLE SEWER: Denies headaches, weakness, paresthesias, recurrent falls MSK: as per HPI All other systems reviewed and are unremarkable except noted above Physical Exam Exam Exam: Vital signs reviewed Physical Examination CONSTITUITIONAL Patient alert and cooperative. Well appearing and in no apparent painful distress MSK Hands * Right Hand: Able to make a fist. No swelling or tenderness to palpation of the MCPs, PIPs or DIPs. * Left Hand: Able to make a fist. No swelling or tenderness to palpation of the MCPs, PIPs or DIPs. Wrists * Right Wrist: Full ROM to flexion and extension. No swelling or TTP * Left Wrist: Full ROM to flexion and extension. No swelling or TTP Elbows * Right Elbow: Full ROM. No swelling or TTP. No TTP of the medial epicondyle. No TTP of the lateral epicondyle * Left Elbow: Full ROM. No swelling or TTP. No TTP of the medial epicondyle. No TTP of the lateral epicondyle Shoulders * Right shoulder: No swelling noted. No TTP of the AC joint. No TTP of the subacromial bursa. No TTP of the posterior shoulder * Left shoulder: No swelling noted. No TTP of the AC joint. No TTP of the subacromial bursa. No TTP of the posterior shoulder * Decreased ROM bilaterally Knees * Right knee: No swelling noted. No TTP of the knee joint line. No TTP of pes anserine bursa * Left knee: No swelling noted. No TTP of the knee joint line. No TTP of pes anserine bursa. * Crepitations felt bilaterally Ankles * Right ankle: Good ankle dorsiflexion and plantar flexion. No swelling. No TTP of the ankle joint * Left ankle: Good ankle dorsiflexion and plantar flexion. No swelling. No TTP of the ankle joint Feet * Right foot: Negative squeeze test * Left foot: Very mild tenderness on the squeeze test Tender points? * No tenderness to palpation of the bilateral trapezius, supraspinatus, anterior costochondral junctions, bilateral suboccipital muscle insertions SKIN No rashes Vital Signs: Last Vital Signs Pulse 114 H 01/20/25 13:42 BP 124/90 H 01/20/25 13:42 Pulse Ox 97 01/20/25 13:42 Oxygen Delivery Method Room Air 01/20/25 13:42 BMI result Body Mass Index 44.0 Results Reviewed Results Reviewed: Laboratory Tests 10/11/24 10:25 WBC 5.1 RBC 4.32 L Hgb 15.0 Hct 41.8 L Plt Count 163 ESR 3 Sodium 140 Potassium 3.2 L Chloride 102 Carbon Dioxide 26 BUN 14 Creatinine 0.98 AST 26 ALT 39 C-Reactive Protein < 0.04 Laboratory Tests 05/14/23 14:15 Hepatitis A IgM Ab Nonreactive Hep Bs Antigen Negative Hep Bs Antibody NONREACTIVE Hep B Core Total Ab Nonreactive Hepatitis C Ab (EIA) Nonreactive TB Test (T-Spot) Com Negative Assessment & Plan Assessment & Plan (1) Seropositive rheumatoid arthritis: Comment: Claudio 2012-to April 2018 active disease on exam Humira April 2018-January 2021 active disease on exam Kevzara January 2021-present -placed on hold 03/06/2022 due to hospital admission for potential infection of the left elbow, final diagnosis olecranon gouty bursitis. The subsequent DMARD treatment for RA stopped. The patient was treated for tophaceous gout Kevzara restarted 05/2023 not effective Actemra 09/2023 effective Code(s): M05.9 - Rheumatoid arthritis with rheumatoid factor, unspecified Category: Medical Plan: #RA Patient is a 48-year-old male with seropositive rheumatoid arthritis here today for follow up. Currently in remission after last prednisone course Plan - Continue Actemra 162mg SC weekly - Labs today: CBC, CMP, ESR, CRP, lipid panel, uric acid, hepatitis spot, T spot - RTC 4 months - Labs before visit: CBC, CMP, ESR, CRP, lipid panel, uric acid (2) Chronic tophaceous gout: Comment: 02/2022: MSU crystals in aspirate of left olecranon 02/2022 Started on allopurinol, colchicine, prednisone 08/20/2022 Canakinumab added for acute gout prevention Code(s): M1A.9XX1 - Chronic gout, unspecified, with tophus (tophi) Category: Medical Plan: #Gout Patient with chronic tophaceous gout currently in remission on allopurinol and colchicine Stable today will stop colchicine and monitor Plan - Continue allopurinol 700mg daily - Stop colchicine (3) Lumbar spondylosis: Code(s): M47.816 - Spondylosis without myelopathy or radiculopathy, lumbar region Plan: #Lumbar pain resolved (4) Encounter for monitoring allopurinol therapy: Code(s): Z51.81 - Encounter for therapeutic drug level monitoring; Z79.899 - Other correction (current) drug therapy Plan: #Long-term Current Use of Allopurinol Risks and benefits of allopurinol discussed with patient Benefits include decreased gout flares, remission of gout and reduction of tophi Risks include allopurinol hypersensitivity syndrome which is a severe cutaneous adverse reaction associated with allopurinol use particularly in patients who are HLA B*5801 positive, increased transaminases, GI upset including diarrhea, nausea and vomiting, and other dermatologic manifestations. (5) Encounter for monitoring tocilizumab therapy: Code(s): Z51.81 - Encounter for therapeutic drug level monitoring; Z79.899 - Other correction (current) drug therapy Plan: #Long-term Use of IL 6 Inhibitors: Tocilizumab/Sarilumab Discussed the risks and benefits of IL6 inhibitors with the management of this patient's rheumatic condition. Benefits include decreased pain, improved mortality, improved quality of life Risks include LFT abnormalities, elevated triglycerides, GI perforations Contraindicated in a patient with history of diverticulitis Monitoring: CBC, CMP, triglycerides Plan I spent 30 minutes reviewing the record and labs, taking a history, examining the patient, discussing the treatment plan, ordering diagnostic work up, and documenting in the medical record Orders: Orders Complete Blood Count Auto Diff 4 Months Z79.899 - Other intermodal owner operator truck driver (current) drug therapy Erythrocyte Sedimentation Rate 4 Months Z79.899 - Other intermodal owner operator truck driver (current) drug therapy Uric Acid 4 Months M1A.9XX1 - Chronic gout, unspecified, with tophus (tophi) Complete Blood Count Auto Diff Today Z79. - Other correction (current) drug therapy Comprehensive Met. Panel Today Z79.89 - Other intermodal owner operator truck driver (current) drug therapy C Reactive Protein Today Z79.89 - Other correction (current) drug therapy Hepatitis B,C Profile Today Z79. - Other intermodal owner operator truck driver (current) drug therapy T Spot TB Today Z79. - Other correction (current) drug therapy Comprehensive Met. Panel 4 Months Z. - Other intermodal owner operator truck driver (current) drug therapy C Reactive Protein 4 Months Z79.899 - Other intermodal owner operator truck driver (current) drug therapy Lipid Panel 4 Months Z79.9 - Other correction (current) drug therapy Erythrocyte Sedimentation Rate Today Z79.899 - Other intermodal owner operator truck driver (current) drug therapy Lipid Panel Today Z79.899 - Other correction (current) drug therapy Uric Acid Today M1A.9XX1 - Chronic gout, unspecified, with tophus (tophi) Medications: Discontinued prednisone Take 3 tablets for 10 days then 2 tablets for 10 days then 1 tablet for 10 days then stop Discontinued Reason: Doctor's Order 5 mg PO DIRECTED 60 tabs 0RF M05.9 - Rheumatoid arthritis with rheumatoid factor, unspecified colchicine Discontinued Reason: Doctor's Order 0.6 mg PO BID 180 tabs 1RF M1A.9XX1 - Chronic gout, unspecified, with tophus (tophi) Coding Level of Care Code Est Pt Level 4 (99311) Complex EM visit Add On G2211 Diagnoses Seropositive rheumatoid arthritis M05.9 Chronic tophaceous gout M1A.9XX1 Lumbar spondylosis M47.816 Encounter for monitoring allopurinol therapy Z51.81; Z9 Encounter for monitoring tocilizumab therapy Z51.81; Z79.89
[2025-01-20 13:42] VITALS: BP 124/90; PULSE 114; O2SAT 97; BMI 44.0
--- OUTSIDE RECORDS SUMMARY | 2025-01-20 15:26 | XMS_ITS | Encounter Summary ---
Author Organization [employer] Address [address] [facility] [address] [place] [address] Care Team Providers Care Monotype Setter Name Role Phone Shi Lancaster MD Primary Care Provide r Reason for Visit * Reason Onset Date Comments Med Refill 01/03/2024 Postop pain 01/03/2024 Encounter Details Date Type Department Care Team ([facility] st Contact Info) Description 01/03/2024 Refill [facility] [address] [place] [address] Shi Lancaster MD [address] [place] [address] Seropositive rheumatoid arthritis (CMS/HCC); Primary osteoarthritis of [...] to patient, interpretation provided by [facility] biomedical engineering aide, pt had his R TKA procedure done 12/31/23. Reviewed with patient to speak with his surgeon for his post op pain medication needsand to call PCP once surgeon is no longer prescribing his pain medication. Pt stated he will. documented in this encounter Plan of Treatment Upcoming Encounters Date Type Department Care Team (Late st Contact Info) Description 02/28/2025 9:30 AM EST Clinical Support [facility] [address] [place] [phone] Sosa Horan RN 04/06/2025 11:30 AM EST Office Visit [facility] [address] [place] [phone] Shi Lancaster MD [address] [place] [phone] documented as of this encounter Visit Diagnoses Diagnosis Seropositive rheumatoid arthritis (CMS/HCC) ([facility]) Primary osteoarthritis of right knee documented in this encounter Additional Health Concerns Assessment Noted Time PHQ-9 Depression Total Score: 0 08/01/19 23 11:32 AM EDT documented as of this encounter Care Teams Monotype Setter Relationship Specialty Start Date End Date Shi Lancaster MD [address] [place] [phone] PCP - General Family Medicine 11/26/17 Lakshmi JOSEPH 01/03/24 documented as of this encounter
--- OUTSIDE RECORDS SUMMARY | 2025-01-20 15:26 | XMS_ITS | Encounter Summary ---
Author Organization [employer] Address [address] [facility] [address] [place] [address] Care Team Providers Care Drywall Finishing Foreman Name Role Phone Shi Lancaster MD Primary Care Provide r Reason for Visit * Reason Onset Date Comments Med Refill 02/26/2024 Encounter Details Date Type Department Care Team (Late st Contact Info) Description 02/26/2024 Refill [facility] [address] [place] [address] Shi Lancaster MD [address] [place] [address] Chronic bilateral low back pain, unspecified whether [...] Description 02/28/2025 9:30 AM EST Clinical Support [address] [address] Sosa Horan RN 04/06/2025 11:30 AM EST Office Visit [address] [address] Shi Lancaster MD [address] [place] [phone] documented as of this encounter Visit Diagnoses Diagnosis Chronic bilateral low back pain, unspecified whether sciatica present Seropositive rheumatoid arthritis (CMS/HCC) ([facility]) Primary osteoarthritis of right knee documented in this encounter Additional Health Concerns Assessment Noted Time PHQ-9 Depression Total Score: 0 08/01/19 23 11:32 AM EDT documented as of this encounter Care Teams Drywall Finishing Foreman Relationship Specialty Start Date End Date Shi Lancaster MD [address] [place] [phone] PCP - General Family Medicine 11/26/17 Lakshmi JOSEPH 01/03/24 documented as of this encounter
--- OUTSIDE RECORDS SUMMARY | 2025-01-20 15:26 | XMS_ITS | Encounter Summary ---
Author Organization [employer] Address [address] 7t [place] [address] Care Team Providers Care Life Science Taxonomist Name Role Phone Shi Lancaster MD Primary Care Provide r Reason for Visit * Reason Onset Date Comments Med Refill 02/29/2024 Encounter Details Date Type Department Care Team (Late st Contact Info) Description 02/29/2024 Refill [facility] [address] [place] [address] Shi Lancaster MD 230 [place] [address] Primary hypertension Social History Tobacco Use Types [...] Description 02/28/2025 9:30 AM EST Clinical Support [address] [address] Sosa Horan RN 04/06/2025 11:30 AM EST Office Visit [address] [address] Shi Lancaster MD [address] [place] [address] documented as of this encounter Visit Diagnoses Diagnosis Primary hypertension Unspecified essential hypertension documented in this encounter Additional Health Concerns Assessment Noted Time PHQ-9 Depression Total Score: 0 08/01/19 23 11:32 AM EDT documented as of this encounter Care Teams Life Science Taxonomist Relationship Specialty Start Date End Date Shi Lancaster MD [address] [place] [address] PCP - General Family Medicine 11/26/17 Lakshmi A 01/03/24 documented as of this encounter
--- OUTSIDE RECORDS SUMMARY | 2025-01-20 15:26 | XMS_ITS | Encounter Summary ---
Author Organization [employer] Address [address] [facility] [address] 7t [place] [address] Care Team Providers Care Business Management Intern Name Role Phone Shi Lancaster MD Primary Care Provide r Reason for Visit * Reason Onset Date Comments Med Refill 03/22/2024 Encounter Details Date Type Department Care Team (Late st Contact Info) Description 03/22/2024 Refill [facility] 230 [place] [address] Shi Lancaster MD 230 [place] [address] Acute deep vein thrombosis (DVT) of proximal [...] Description 02/28/2025 9:30 AM EST Clinical Support [address] [address] Sosa Horan RN 04/06/2025 11:30 AM EST Office Visit [address] [address] Shi Lancaster MD [address] [place] [address] documented as of this encounter Visit Diagnoses Diagnosis Acute deep vein thrombosis (DVT) of proximal vein of lower extremity, unspecified laterality (HCC) documented in this encounter Additional Health Concerns Assessment Noted Time PHQ-9 Depression Total Score: 0 08/01/19 23 11:32 AM EDT documented as of this encounter Care Teams Business Management Intern Relationship Specialty Start Date End Date Shi Lancaster MD [address] [place] [phone] PCP - General Family Medicine 11/26/17 Lakshmi JOSEPH 01/03/24 documented as of this encounter
--- OUTSIDE RECORDS SUMMARY | 2025-01-20 15:27 | XMS_ITS | Encounter Summary ---
Author Organization [employer] Address [address] [facility] 7t [place] [address] Care Team Providers Care Marketing Outreach Coordinator Name Role Phone Shi Lancaster MD Primary Care Provide r Reason for Visit * Reason Comments Med Refill Encounter Details Date Type Department Care Team (Late st Contact Info) Description 06/12/2022 Refill [facility] [address] [place] [address] Keiry Joseph DO 230 [place] [address] Acute deep vein thrombosis (DVT) of proximal [...] Description 02/28/2025 9:30 AM EST Clinical Support [facility] [address] [place] [address] [phone] Sosa Horan RN 04/06/2025 11:30 AM EST Office Visit [facility] [address] [place] [address] Shi Lancaster MD 230 [place], [place] [phone] documented as of this encounter Visit Diagnoses Diagnosis Acute deep vein thrombosis (DVT) of proximal vein of lower extremity, unspecified laterality (HCC) documented in this encounter Care Teams Marketing Outreach Coordinator Relationship Specialty Start Date End Date Shi Lancaster MD [address] [place] [address] PCP - General Family Medicine 11/26/17 Lakshmi [facility] 01/03/24 documented as of this encounter
--- OUTSIDE RECORDS SUMMARY | 2025-01-20 15:27 | XMS_ITS | Encounter Summary ---
Author Organization [employer] Address [address] [facility] 7t [place] [address] Care Team Providers Care Automation Mechanic Name Role Phone Shi Lancaster MD Primary Care Provide r Reason for Visit * Reason Onset Date Comments Appointment Request 09/03/2022 Encounter Details Date Type Department Care Team ([facility] st Contact Info) Description 09/03/2022 Telephone [facility] 230 [place] [address] Shi Lancaster MD 230 [place] [address] Appointment Request Social History Tobacco Use Types [...] Description 02/28/2025 9:30 AM EST Clinical Support [address] [address] Sosa Horan RN 04/06/2025 11:30 AM EST Office Visit [address] [address] Shi Lancaster MD [address] [place] [address] documented as of this encounter Visit Diagnoses Not on filedocumented in this encounter Additional Health Concerns Assessment Noted Time PHQ-9 Depression Total Score: 0 08/01/19 11:32 AM EDT documented as of this encounter Care Teams Automation Mechanic Relationship Specialty Start Date End Date Shi Lancaster MD [address] [place] [address] PCP - General Family Medicine 11/26/17 Lakshmi JOSEPH 01/03/24 documented as of this encounter
--- OUTSIDE RECORDS SUMMARY | 2025-01-20 15:27 | XMS_ITS | Clinical Summary ---
Author Organization [employer] Address [address] [facility] [address] 7t [place] [address] Care Team Providers Care Immunochemist Name Role Phone Shi Lancaster MD Primary [...] noon, in the evening, and at bedtime. 022 Active gabapentin (Neurontin) 100 MG capsule Take 1 capsules by mouth twice a day Active allopurinol (Zyloprim) 300 MG tablet Take [...] EVERY MORNING 90 tablet 1 025 Active apixaban (Eliquis) 5 MG tabletIndications :Acute deep vein thrombosis (DVT) of proximal vein of lower extremity, unspecified laterality ([facility]) TOME 1 TABLETA POR VIA ORAL DOS VECES AL TL 60 tablet 025 Active pantoprazole (ProtoNix) 40 MG EC tablet TOME JV TABLETA POR VIA ORAL CADA MANANA 90 tablet 025 Active hydroCHLOROthiazi de 12.5 MG tabletIndications :Primary hypertension TAKE 1 TABLET BY MOUTH EVERY MORNING 90 tablet 1 025 Active cyclobenzaprine (Flexeril) 10 MG tabletIndications :Osteoarthritis of right knee, unspecified osteoarthritis type TOME 1 TABLETA POR VIA ORAL CADA 8 HORAS 90 tablet 025 Active oxyCODONE (Roxicodone) 5 MG immediate release tabletIndications :Chronic bilateral low back pain, unspecified whether sciatica present Take 1 tablet (5 mg) by mouth every 8 (eight) hours if needed for severe pain for up to 28 days. Do not start before December 31, 2024. 84 tablet 025 2024 Active dextran 70-hypromellose PF (artificial tears) 0.1-0.3 % ophthalmic solutionIndicatio ns:Dry eyes Administer 1 drop into both eyes if needed in the morning, at noon, and at bedtime for dry eyes. 1 each 2 025 2025 Active Tirzepatide-Weigh t Management (Zepbound) 2.5 MG/0.5ML solution auto-injectorIndi cations:Class 3 severe obesity due to excess calories with serious comorbidity and body mass index (BMI) of 40.0 to 44.9 in adult ([facility]) Inject 0.5 mL (2.5 mg) under the skin 1 (one) time per week. 2 mL Active predniSONE (Deltasone) 10 MG tablet TAKE 3 TABS BY MOUTH DAILY X3 DAYS, THEN 2 TABS DAILY X3 DAYS, THEN 1 TAB DAILY X3 DAYS THEN STOP. 022 2024 Discontinued cyclobenzaprine (Flexeril) 10 MG tabletIndications [...] December 03, 2024. 84 tablet 025 2024 Discontinued(R eorder (will not trigger notification to Pharmacy)) Active Problems Problem Noted Date Diagnosed Date Dry eyes 01/06/2025 Class 3 severe obesity due t o excess calories with serious comorbidity and body mass index (BMI) of 40.0 to 44.9 in adult 01/06/2025 detention (current) use of opiate analgesic 05/15 Rheumatoid arthritis involvi ng multiple sites with positive rheumatoid factor ([facility]) 05/14/2024 Assessment & Plan (05/14/2024 4:32 PM EST): Continue to follow with rheumatology I will continue with same dose of oxycodone 5 mg every 8 hours as needed for pain control Sinus tachycardia 05/14/2024 Assessment & Plan (05/14/2024 4:31 PM EST): 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 [...] evaluated for electric wheelchair Seropositive rheumatoid arthritis ([facility]/HCC) 01/16 Assessment & Plan (10/13/2023 11:38 AM EDT): Continue to follow with rheumatology C/w same percocet dose for pain patient will follow up with SOUNDING DEVICE OPERATOR nurse I will inquire about electric wheelchair evaluation Assessment & Plan (07/11/2023 10:27 AM EDT): Continue to follow with rheumatology Patient also awaiting to be evaluated for electric wheelchair Assessment & Plan (03/07/2023 12:08 PM EST): Patient will be evaluated for electric wheelchair Assessment & Plan (07/31/2022 3:37 PM EDT): Continue to follow with specialist Hypertriglyceridemia 10/14/2016 Nonalcoholic steatohepatitis 10/14/2016 Post-traumatic epilepsy ([facility]/HCC) 08/17/2012 Hypertension 11/25/2011 Assessment & Plan (05/14/2024 [...] Encounters Date Type Department Care Team Description 01/10/2025 Telephone [facility] [address] [place] [address] Shi Lancaster MD Prior Authorization ( PA: Brittaney) 01/06/2025 11:30 AM EDT Office Visit [facility] [address] [place] [address] Shi Lancaster MD Rheumatoid arthritis involving multiple sites with positive rheumatoid factor ([facility]/HCC) ([facility]) (Primary Dx); Dietary counseling; Exercise counseling; Post-traumatic epilepsy ([facility]) (HCC); Chronic bilateral low back pain, unspecified whether sciatica present; Primary osteoarthritis of both knees; Migraine without aura and without status migrainosus, not intractable; Dry eyes; Primary hypertension; Sinus tachycardia; Obstructive sleep apnea syndrome; Class 3 severe obesity due to excess calories with serious comorbidity and body mass index (BMI) of 40.0 to 44.9 in adult ([facility]) 01/06/2025 Refill [facility] [address] [place] [address] Sosa Horan RN 01/06/2025 Travel 01/05/2025 Telephone [facility] MED[facility]INE [address] [place] [address] Shi Lancaster MD Chart Prep 12/30/2024 Patient Outreach [facility] [address] [place], [place] [phone] Shi Lancaster MD Pre-visit Planning ([facility] unable to reach [facility] ) 12/29/2024 Refill [facility] [address] [place], [place] [phone] Shi Lancaster MD Chronic bilateral low back pain, unspecified whether sciatica present 12/21/2024 Refill [facility] [address] [place], [place] [phone] Shi Lancaster MD Osteoarthritis of right knee, unspecified osteoarthritis type 12/10/2024 Refill [facility] [address] [place] [address] Shi Quiñones MD Primary hypertension 12/02/2024 10:00 AM EDT Clinical Support [facility] [address] [place] [address] Sosa Horan, RN Long-term current use of opiate analgesic (Primary Dx) 12/02/2024 Refill [facility] [address] [place] [address] Sosa Horan, section hand bilateral low back pain, unspecified whether sciatica present 12/02/2024 Travel 11/25/2024 Refill [facility] [address] [place] [address] Shi Lancaster MD Chronic bilateral low back pain, unspecified whether sciatica present 11/25/2024 Travel 11/22/2024 Refill [facility] [address] [place] [address] Yenny Shea MD 11/18/2024 Refill [facility] [address] [place] [address] Shi Lancaster MD Acute deep vein thrombosis (DVT) of proximal vein of lower extremity, unspecified laterality ([facility]) 11/11/2024 Refill [facility] [address] [place] [address] Yenny Shea MD Osteoarthritis of right knee, unspecified osteoarthritis type 11/08/2024 Telephone [facility] [address] [place] [address] Shi Lancaster MD Housing Form (I called the patient regarding a reasonable accommodation form, from the [employer]. He needs to state what accommodation he is requesting. I reached a voicemail, and left a message asking him to return my call at ext [phone].) 10/25/2024 Refill [facility] [address] [place] [address] Shi Lancaster MD Chronic bilateral low back [...] Sign Reading Time Taken Comments Blood Pressure 140/96 01/06/2025 11:18 AM EDT Pulse 110 01/06/2025 11:18 AM EDT Temperature 36.6 C (97.9 F) 01/06/2025 11:18 AM EDT Respiratory Rate 20 01/06/2025 11:18 AM EDT Oxygen Saturation 97% 01/06/2025 11:18 AM EDT Inhaled Oxygen Concentration - - Weight 140 kg (309 lb 6.4 oz) 01/06/2025 11:18 A M EDT Height 180.3 cm (5' 11 ) 01/06/2025 11:18 AM EDT Body Mass Index 43.15 01/06/2025 11:18 AM EDT Plan of Treatment Upcoming Encounters Date Type Department Care Team (Late st Contact Info) Description 02/28/2025 9:30 AM EST Clinical Support [address] [address] Sosa Horan RN 04/06/2025 11:30 AM EST Office Visit [address] [address] Shi Lancaster MD [address] [place] [address] Health Maintenance Due Date Last Done Comments [...] Screening 04/21/2025 04/21/2024 SDOH Screening 04/30/2025 04/30/2024 Zoster Vaccines (1 of 2) 10/19/2025 Tobacco Screening 01/06/2026 01/06/2025 Dental X-Ray: Full Mouth 04/09/2026 04/08/2023, 05/16 [...] PANEL, STANDARD Routine 10/11/2024 10:25 AM EDT HEPATITIS PANEL, GENERAL Routine 05/14/2023 2:15 [...] / Unknown 12/02/2024 10:57 AM EDT Sosa Bergeron RN - 12/02/2024 10:57 AM EDT UTOX cup Lot#[id number] Exp. 12/21/25 Internal Pass Control us Shi Gage MD POINT OF CARE TEST EN TER/EDIT ORDERABLES Final Result * (ABNORMAL) Lipid Panel, Standard (10/11/2024 10:25 AM EDT) Triglycerides 192(H) <150 mg/dL [facility] Comment:Desirable Triglyceri de: less than 150 mg/dLBorderline High Triglyceride 150-199 mg/dLHigh Triglyceride: 200-499 mg/dLVery High Triglyceride: greater than or equal to 5OO mg/dL Cholesterol 239(H) <200 mg/dL [facility] Comment:Desirable Cholestero l: less than 200 mg/dLBorderline High Cholesterol: 200-239 mg/dLHigh Cholesterol: greater than 239 mg/dL LDL Cholesterol Calculated 151(H) <100 mg/dL [facility] Comment:Desirable LDL: less than 100 mg/dLNear Optimal/Above Optimal LDL: 110- 129 mg/dLBorderline High LDL: 130-159 mg/dLHigh LDL: 160-189 mg/dLVery High LDL: greater than or equal to 190 mg/dL HDL Cholesterol 50 >40 mg/dL [facility] Comment:Desirable HDL: great er than 40 mg/dL Note: This HDL assay may give artificially low results in patients with liver disease. 10/11/2024 10:2 5 AM EDT 10/11/2024 10:25 AM EDT us Generic External Data Provider LAB BLOOD ORDERAB LES Final Result [facility] [address] [place] [phone] * Hepatitis Panel, General (05/14/2023 2:15 PM EST) Hepatitis A IgM Nonreactive Nonreactive [facility] Comment:IgM antibodies to NUNEZ V not detected; does not exclude earlyacute or recovered HAV infection. ~Hepatitis B Surface Antibody NONREACTIVE Nonreactive [facility] Comment:Nonreactive: < 8.00 mIU/mL Hepatitis B Core Antibody Nonreactive Nonreactive [facility] Hepatitis C Antibody Nonreactive Nonreactive [facility] Comment:Antibodies to HCV no t detected; does not exclude early acuteHCV infection. Hepatitis B Surface Ag Negative Negative [facility] 05/14/2023 2:15 PM EST 05/14/2023 2:15 PM EST us Generic External Data Provider LAB BLOOD ORDERAB LES Final Result [facility] [address] [place] [phone] [phone] from Last 3 Months or Most Recently Relevant to Health Maintenance Insurance [employer] C[employer]ICA[employer] STAND ADULT Care Teams Immunochemist Relationship Specialty Start Date End Date Shi Lancaster MD [address] [place] [address] PCP - General Family Medicine 11/26/17 [facility] 01/03/24
--- OUTSIDE RECORDS SUMMARY | 2025-01-20 15:27 | XMS_ITS | Encounter Summary ---
Author Organization [employer] Address [address] [facility] 7t [place] [address] Care Team Providers Care On Air Announcer Name Role Phone Shi Lancaster MD Primary Care Provide r Encounter Details Date Type Department Care Team (Latest Contact Info) Description 09/30/2018 Abstract [facility] CONVERSION[facility] Dental, Provider, DDS Social History [...] Description 02/28/2025 9:30 AM EST Clinical Support [facility] MED[facility] [address] [place] [address] Sosa Horan RN 04/06/2025 11:30 AM EST Office Visit [facility] [address] [place] [address] Shi Lancaster MD [address] [place] [address] documented as of this encounter Visit Diagnoses Not on filedocumented in this encounter Care Teams On Air Announcer Relationship Specialty Start Date End Date Shi Lancaster MD [address] [place] [address] PCP - General Family Medicine [facility] documented as of this encounter
--- OUTSIDE RECORDS SUMMARY | 2025-01-20 15:27 | XMS_ITS | Encounter Summary ---
Author Organization [employer] Address [address] [facility] 7t [place] [address] Care Team Providers Care Gum Machine Filler Name Role Phone Shi Lancaster MD Primary Care Provide r Reason for Visit * Reason Comments Med Refill Encounter Details Date Type Department Care Team (Late st Contact Info) Description 09/26/2022 Refill [facility] MEDICINE 230 [place], [place] [phone] Shi Lancaster MD [address] [place], [place] [phone] Acute deep vein thrombosis (DVT) of proximal [...] Description 02/28/2025 9:30 AM EST Clinical Support [facility] [address] [place] [address] Sosa Horan RN 04/06/2025 11:30 AM EST Office Visit [facility] [address] [place], [place] [phone] Shi Lancaster MD [address] [place] [address] documented as of this encounter Visit Diagnoses Diagnosis Acute deep vein thrombosis (DVT) of proximal vein of lower extremity, unspecified laterality (HCC) documented in this encounter Additional Health Concerns Assessment Noted Time PHQ-9 Depression Total Score: 0 08/01/19 23 11:32 AM EDT documented as of this encounter Care Teams Gum Machine Filler Relationship Specialty Start Date End Date Shi Lancaster MD [address] [place] [address] PCP - General Family Medicine 11/26/17 Lakshmi Tonie 01/03/24 documented as of this encounter
--- OUTSIDE RECORDS SUMMARY | 2025-01-20 15:27 | XMS_ITS | Encounter Summary ---
Author Organization [employer] Address [address]t [place] [address] Care Team Providers Care Field Health Officer Name Role Phone Shi Lancaster MD Primary Care Provide r Reason for Visit * Reason Onset Date Comments Med Refill 10/08/2023 Encounter Details Date Type Department Care Team (Late st Contact Info) Description 10/08/2023 Refill [facility] [address] [place] [address] Shi Lancaster MD [address] [place] [address] Seropositive rheumatoid arthritis (CMS/HCC); Primary osteoarthritis of [...] AM EST Clinical Support [facility] [address] [place] [address] Sosa Horan RN 04/06/2025 11:30 AM EST Office Visit [facility] [address] [place] [address] Shi Lancaster MD [address] [place] [address] documented as of this encounter Visit Diagnoses Diagnosis Seropositive rheumatoid arthritis (CMS/HCC) ([facility]) Primary osteoarthritis of right knee documented in this encounter Additional Health Concerns Assessment Noted Time PHQ-9 Depression Total Score: 0 08/01/19 23 11:32 AM EDT documented as of this encounter Care Teams Field Health Officer Relationship Specialty Start Date End Date Shi Lancaster MD [address] [place] [phone] PCP - General Family Medicine 11/26/17 Lakshmi A 01/03/24 documented as of this encounter
--- OUTSIDE RECORDS SUMMARY | 2025-01-20 15:27 | XMS_ITS | Encounter Summary ---
Author Organization [employer] Address [address] [facility] [address] 7t [place] [address] Care Team Providers Care Legal Process Specialist Name Role Phone Shi Lancaster MD Primary Care Provide r Reason for Visit * Reason Onset Date Comments Appointment Request 06/26/2023 Encounter Details Date Type Department Care Team ([facility] st Contact Info) Description 06/26/2023 Telephone [facility] MEDICINE 230 [place] [address] Shi Lancaster MD 230 [place] [address] Appointment Request Social History Tobacco Use Types [...] Description 02/28/2025 9:30 AM EST Clinical Support [address] [address] Sosa Horan RN 04/06/2025 11:30 AM EST Office Visit [address] [address] Shi Lancaster MD 230 [place] [address] documented as of this encounter Visit Diagnoses Not on filedocumented in this encounter Additional Health Concerns Assessment Noted Time PHQ-9 Depression Total Score: 0 08/01/19 23 11:32 AM EDT documented as of this encounter Care Teams Legal Process Specialist Relationship Specialty Start Date End Date Shi Lancaster MD [address] [place] [address] PCP - General Family Medicine 11/26/17 [facility] 01/03/24 documented as of this encounter
--- OUTSIDE RECORDS SUMMARY | 2025-01-20 15:27 | XMS_ITS | Encounter Summary ---
Author Organization [employer] Address [address] [place] [address] Care Team Providers Care School Program Director Name Role Phone Shi Lancaster MD Primary Care Provide r Reason for Visit * Reason Onset Date Comments Med Refill 12/04/2023 Encounter Details Date Type Department Care Team (Late st Contact Info) Description 12/04/2023 Refill [facility] [address] [place] [address] Shi Lancaster MD [address] [place] [address] Acute deep vein thrombosis (DVT) of proximal [...] Description 02/28/2025 9:30 AM EST Clinical Support [address] [address] Sosa Horan RN 04/06/2025 11:30 AM EST Office Visit [address] [address] Shi Lancaster MD [address] [place] [phone] documented as of this encounter Visit Diagnoses Diagnosis Acute deep vein thrombosis (DVT) of proximal vein of lower extremity, unspecified laterality (HCC) documented in this encounter Additional Health Concerns Assessment Noted Time PHQ-9 Depression Total Score: 0 08/01/19 23 11:32 AM EDT documented as of this encounter Care Teams School Program Director Relationship Specialty Start Date End Date Shi Lancaster MD [address] [place] [phone] PCP - General Family Medicine 11/26/17 Lakshmi JOSEPH 01/03/24 documented as of this encounter
--- OUTSIDE RECORDS SUMMARY | 2025-01-20 15:27 | XMS_ITS | Encounter Summary ---
Author Organization [employer] Address [address] [place] [address] Care Team Providers Care Product Development Actuary Name Role Phone Shi Lancaster MD Primary Care Provide r Reason for Visit * Reason Onset Date Comments pt1 09/23/2024 Encounter Details Date Type Department Care Team (Late st Contact Info) Description 09/23/2024 Telephone [facility] [address] [place] [address] Shi Lancaster MD [address] [place] [address] pt1 Social History Tobacco Use Types Packs/Day [...] Y/N: Yes Provider name or facility name: [facility] Escort needed: Y/N: No Do you have a wheelchair: Y/N: No Visits: (2x month) Patient calling requesting PT1 Home Address verified: Y/N: Yes Provider name or facility name: [facility] [address] [facility] [address] Escort needed: Y/N: No Do you [...] Description 02/28/2025 9:30 AM EST Clinical Support [facility] [address] [place] [phone] Sosa Horan RN 04/06/2025 11:30 AM EST Office Visit [facility] [address] [place] [phone] Shi Lancaster MD [address] [place] [phone] documented as of this encounter Visit Diagnoses Not on filedocumented in this encounter Additional Health Concerns Assessment Noted Time PHQ-9 Depression Total Score: 0 08/01/19 23 11:32 AM EDT documented as of this encounter Care Teams Product Development Actuary Relationship Specialty Start Date End Date Shi Lancaster MD [address] [place] [address] PCP - General Family Medicine 11/26/17 [facility] 01/03/24 documented as of this encounter
--- OUTSIDE RECORDS SUMMARY | 2025-01-20 15:27 | XMS_ITS | Encounter Summary ---
Author Organization [employer] Address [address] [place] [address] Care Team Providers Care Zanjero Name Role Phone Shi Lancaster MD Primary Care Provide r Reason for Visit * Reason Onset Date Comments Med Refill 01/11/2024 Encounter Details Date Type Department Care Team (Late st Contact Info) Description 01/11/2024 Refill [facility] [address] [place] [address] Shi Lancaster MD [address] [place] [address] Primary hypertension Social History Tobacco Use Types [...] Description 02/28/2025 9:30 AM EST Clinical Support [address] [address] Sosa Horan RN 04/06/2025 11:30 AM EST Office Visit [address] [address] Shi Lancaster MD [address] [place] [phone] documented as of this encounter Visit Diagnoses Diagnosis Primary hypertension Unspecified essential hypertension documented in this encounter Additional Health Concerns Assessment Noted Time PHQ-9 Depression Total Score: 0 08/01/19 23 11:32 AM EDT documented as of this encounter Care Teams Zanjero Relationship Specialty Start Date End Date Shi Lancaster MD [address] [place] [phone] PCP - General Family Medicine 11/26/17 Lakshmi A 01/03/24 documented as of this encounter
--- OUTSIDE RECORDS SUMMARY | 2025-01-20 15:27 | XMS_ITS | Encounter Summary ---
Author Organization [employer] Address [address] [facility] [address] [place] [address] Care Team Providers Care Internal Medicine Nurse Name Role Phone Shi Lancaster MD Primary Care Provide r Reason for Visit * Reason Onset Date Comments Med Refill 09/16/2022 Encounter Details Date Type Department Care Team (Late st Contact Info) Description 09/16/2022 Telephone [facility] [address] [place] [address] Shi Lancaster MD [address] [place] [address] Med Refill Social History Tobacco Use Types [...] Description 02/28/2025 9:30 AM EST Clinical Support [address] [address] Sosa Horan RN 04/06/2025 11:30 AM EST Office Visit [address] [address] Shi Lancaster MD [address] [place] [phone] documented as of this encounter Visit Diagnoses Not on filedocumented in this encounter Additional Health Concerns Assessment Noted Time PHQ-9 Depression Total Score: 0 08/01/19 23 11:32 AM EDT documented as of this encounter Care Teams Internal Medicine Nurse Relationship Specialty Start Date End Date Shi Lancaster MD [address] [place] [phone] PCP - General Family Medicine 11/26/17 Lakshmi JOSEPH 01/03/24 documented as of this encounter
--- OUTSIDE RECORDS SUMMARY | 2025-01-20 15:27 | XMS_ITS | Clinical Summary ---
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
== END 2025-01-20 14:08 | disposition home or self-care (01) ==
LOC: HO.RHES 12:39
PROVIDERS: PCP Internal Medicine; Visit Provider Student in an Organized Health Care Education/Training Program
DX: M05.9 Rheumatoid arthritis with rheumatoid factor, unspecified (principal); M1A.9XX1 Chronic gout, unspecified, with tophus (tophi); M47.816 Spondylosis without myelopathy or radiculopathy, lumbar region; Z51.81 Encounter for therapeutic drug level monitoring; Z79.899 Other long term (current) drug therapy
CPT/HCPCS: 99214

== ENCOUNTER → 2025-01-20 12:38 | Outpatient (BNVA) | payer MEDICAID, SELFPAY | PROVIDERS: PCP Internal Medicine; Visit Provider Student in an Organized Health Care Education/Training Program | DX: M05.9 Rheumatoid arthritis with rheumatoid factor, unspecified (principal); M1A.9XX1 Chronic gout, unspecified, with tophus (tophi); M47.816 Spondylosis without myelopathy or radiculopathy, lumbar region; Z51.81 Encounter for therapeutic drug level monitoring; Z79.899 Other long term (current) drug therapy | CPT/HCPCS: 99212 ==

== ENCOUNTER 2025-01-28 11:13 | Outpatient (REF) | payer MEDICAID, SELFPAY ==
[2025-01-28 11:46] LABS: MANUAL DIFF FLAG NO
[2025-01-28 11:53] LABS: Hematocrit 41.8 % (42.0-52.0); Hemoglobin 15.0 g/dl (14.0-18.0); Imm Gran Abs Auto 0.01 X10*3/uL (0.00-0.03); Imm Gran Pct Auto 0.2 % (0.0-0.4); Lymphocytes Absolute Auto 1.5 X10*3/uL (1.2-4.9); Mean Corpuscular HGB Conc 35.9 g/dl (31.0-36.0); Mean Corpuscular Hemoglobin 34.4 pg (27.0-33.0); Mean Corpuscular Volume 95.9 fL (80.0-98.0); NRBC Abs Auto 0.000 X10*3/uL (0.0-0.012); NRBC Pct Auto 0.0 /100WBC (0.0-0.2); Platelet Count 156 X10*3/uL (160-400); Red Blood Count 4.36 X10*6/uL (4.60-5.80); White Blood Count 4.8 X10*3/uL (4.8-10.8)
[2025-01-28 12:06] LABS: Alanine Aminotransferase 43 U/L (0-40); Albumin Level 4.6 g/dL (3.5-5.0); Alkaline Phosphatase 84 U/L (39-117); Anion Gap 13 (12-20); Aspartate Amino Transferase 30 U/L (5-37); Blood Urea Nitrogen 11 mg/dL (9-16); Calcium 9.8 mg/dL (8.4-10.2); Carbon Dioxide 28 mmol/L (22-29); Chloride 103 mmol/L (96-108); Cholesterol 238 mg/dL (<200); Estimated Glomerular Filt Rate > 60; HDL Cholesterol 46 mg/dL (>40); Iron 194 mcg/dL (45-160); Percent Iron Saturation 60 % (15-50); Potassium 3.3 mmol/L (3.3-5.1); Sodium 141 mmol/L (135-145); Total Iron Binding Capacity 322 mcg/dL (228-428); Total Protein 7.2 g/dL (6.5-8.0); Triglycerides 247 mg/dL (<150); Unsaturated Iron Binding 128 ug/dL; Uric Acid 5.4 mg/dL (3.4-7.0)
[2025-01-28 12:27] LABS: Ferritin 628 ng/mL (20-250)
[2025-01-28 12:31] LABS: HBS Num1 0.67 mIU/mL (0-7.99); HBc Num1 0.02 S/CO (0.00-0.79); HBsAGNum1 0.37 S/CO (0.00-0.99); Hepatitis B Surface Antigen Negative (Negative); ~HepC Num1 0.04 S/CO (0.00-0.79); ~Hepatitis B Surface Antibody NONREACTIVE (Nonreactive); ~Hepatitis C Antibody Nonreactive (Nonreactive)
[2025-01-28 12:41] LABS: Folate 9.3 ng/mL (> or = 4.0); Vitamin B12 300 pg/mL (200-900)
[2025-01-31 08:49] LABS: TS Negative Control Passed; TS Panel A 0; TS Panel B 0; TS Positive Control Passed; TSpotTB Negative (Negative)
== END 2025-01-28 11:14 | disposition home or self-care (01) ==
LOC: HO.LAB 11:13
PROVIDERS: Absent Provider Physician Assistant Medical; PCP Internal Medicine; Visit Provider Student in an Organized Health Care Education/Training Program
DX: Z11.1 Encounter for screening for respiratory tuberculosis (principal); Z11.59 Encounter for screening for other viral diseases; Z20.1 Contact with and (suspected) exposure to tuberculosis; Z20.5 Contact with and (suspected) exposure to viral hepatitis; M1A.9XX1 Chronic gout, unspecified, with tophus (tophi); R53.83 Other fatigue; G47.19 Other hypersomnia; G47.9 Sleep disorder, unspecified; Z79.899 Other long term (current) drug therapy
CPT/HCPCS: 36415; 80053; 80061; 82306; 82607; 82728; 82746; 83090; 83540; 83921; 84550; 85025; 85652; 86140; 86481; 86704; 86706; 86803; 87340